=== PATIENT | male | born 1965 | race Caucasian/White ===

== ENCOUNTER 2021-04-14 08:18 | Inpatient (IN) | payer MEDICAID, SELFPAY ==
[2021-04-14] VITALS (17 sets, daily range): BP systolic 113–163; BP diastolic 60–78; PULSE 95–115; RESP 12–32; TEMP 36.9–38.6; O2SAT 91–95; BMI 30.9; BMI 25.0
--- NOTE | ~2021-04-14 | XR_ITS ---
EXAMINATION: XR CHEST CLINICAL INFORMATION: AMS COMPARISON: None TECHNIQUE: AP portable view of the chest was obtained. FINDINGS: No significant abnormality is noted involving the heart, lungs, mediastinum, bony thorax or soft tissues. Linear density seen overlying the lower right chest which may represent artifact or extrinsic density. XR/XR chest 1V IMPRESSION: No acute disease.
--- NOTE | ~2021-04-14 | XR_ITS ---
EXAMINATION: XR FOOT, RIGHT CLINICAL INFORMATION: Bones. Concern for osteomyelitis.. COMPARISON: None TECHNIQUE: AP, lateral, and oblique views of the right foot. FINDINGS: There is a soft tissue ulceration at the base of the fifth distal metatarsal with 2 mm radiopaque foreign body underneath the skin and a slightly larger radiopaque faintly visualized 3 mm foreign body more anteriorly. There is no periosteal elevation. No fracture or dislocation. No soft tissue gas. Mild hallux valgus deformity first MTP joint is noted. XR/XR foot RT min 3V IMPRESSION: Soft tissue ulceration/wound along the base of the fifth distal metatarsal with suspicion for two radiopaque foreign bodies. There is no evidence of osteomyelitis, fracture or dislocation.
--- NOTE | ~2021-04-14 | CT_ITS ---
EXAMINATION: CT HEAD WITHOUT CONTRAST CLINICAL INFORMATION: Altered mental status in a 56-year-old male COMPARISON: None TECHNIQUE: Contiguous axial imaging was performed from the skull base to vertex without intravenous administration of contrast. This CT examination was performed using dose optimization techniques as appropriate, variously including the following: *Automated exposure control *Adjustment of mA and/or kV according to patient size (this includes techniques or standardized protocols for targeted exams where dose is matched to indication/reason for exam; i.e. extremities or head) *Use of iterative reconstruction technique DLP: 818 mGy-cm FINDINGS: There is no evidence of acute intracranial hemorrhage or territorial infarction. No abnormal mass effect or midline shift is seen. Triana to white matter differentiation is well preserved. No extra-axial fluid collections are identified. The ventricles are normal in size. There is no abnormal attenuation within the brain parenchyma. The osseous structures and soft tissues are normal. The mastoid air cells and visualized portions of the paranasal sinuses are well aerated. CT/CT head/brain wo con IMPRESSION: No acute intracranial pathology.
--- NOTE | 2021-04-14 08:28 | ECG_ITS ---
Test Reason : sepsis Blood Pressure : / mmHG Vent. Rate : 100 BPM Atrial Rate : 100 BPM P-R Int : 138 ms QRS Dur : 088 ms QT Int : 374 ms P-R-T Axes : 061 052 030 degrees QTc Int : 482 ms Normal sinus rhythm Nonspecific ST abnormality Prolonged QT Abnormal ECG No previous ECGs available Referred By: Nubia Manuel Electronically Signed By:Dave Alexander
--- NOTE | 2021-04-14 08:28 | ED.GENADULT ---
HPI - General Adult General Chief complaint: General Medical Stated complaint: AMS,?SEPSIS,?UTI Time Seen by Provider: 04/14/21 08:28 Source: patient and EMS Mode of arrival: EMS Limitations: no limitations History of Present Illness HPI narrative: 56 y/o male with history of diabetes with neuropathy presents to the ER from home via EMS with concern of altered mental status and weakness. His mother called 911 when he fell this morning because he was weak. He denies any injury or hitting his head. He is a poor historian. He reports not taking his metformin because he ran out, cannot say the last time he took it. Denies other medical problems. He was noted to have multiple wounds and drainage from his right foot - he reports no pain and the wounds started 2 days ago. Denies fevers at home. Not vaccianted for COVID. EMS found the patient confused. He was incontinent of foul smelling urine. POC >600 for EMS. Spoke with patient's mother in the waiting room - he has not been on his metformin for several months as he has not seen his provider and they did want a refill his meds without evaluation and person. He has no other documented medical history per mom. She reports his right foot wound is chronic since 2017. He has had COVID symptoms all week including loss of taste and smell and intermittent vomiting. He also had some muscle aches and headaches. Patient did not want to go get a COVID test so he stayed home. Mom called 911 when she heard him fall this morning while getting food out of the pantry. No LOC MD complaint: weakness s/p fall, confused Onset (ago): unknown Location: left and lower extremity Radiation: proximal Severity: moderate Relieving factors: none Exacerbating factors: none Associated symptoms: confusion, malaise and syncope Treatments prior to arrival: none Related Data Home Medications Medication Instructions Recorded Confirmed No Known Home Meds 04/14/21 04/14/21 Allergies Allergy/AdvReac Type Severity Reaction Status Date / Time No Known Allergies Allergy Unverified 12/10/19 14:45 [No Known Allergies*] Review of Systems Review of Systems: Constitutional: No Fever, No Chills ENT/Mouth: No sore throat, No Rhinorrhea, No Swallowing Difficulty Eyes: No Eye Pain, No Swelling, No Redness Cardiovascular: No Chest Pain, No SOB, No Orthopnea, No Edema Respiratory: No Cough, No Sputum, No Wheezing, No dyspnea Gastrointestinal: No Nausea, No Vomiting, No Diarrhea, No abdominal Pain Genitourinary: No Dysuria, No Urinary Frequency, No Hematuria Musculoskeletal: No joint pain, No Myalgias Skin: + Skin Lesions, No rash Neuro: + Weakness, + Numbness, No Dizziness, No Headache Psych: No Anxiety/Panic, No Depression Heme/Lymph: No Bruising, No Lymphadenopathy Endocrine: + Polyuria, + Polydipsia PMFSH Social History Social History Alcohol intake: current Alcohol intake frequency: a few times a week Patient Tobacco Use Status: Current everyday Tobacco user Use of substances other than those prescribed or required for medical reasons: No Advance Directives: No Advance Directives Information Provided: No Physical Exam Vital Signs: Vital Signs: Last Vital Signs Temp 100.8 F H 04/14/21 15:53 Pulse 97 04/14/21 15:31 Resp 15 04/14/21 15:31 BP 133/64 04/14/21 15:31 Pulse Ox 91 L 04/14/21 15:31 BMI result Body Mass Index 25.0 Appearance: Alert. Oriented X3. No acute distress. Eyes: Pupils equal, round and reactive to light. ENT: Pharynx normal. No dentition. Neck: Normal inspection. Neck supple. CVS: Normal heart rate and rhythm. Pulses normal. Respiratory: No respiratory distress. Breath sounds normal. Abdomen: Obese, Soft and nontender. +BS x4 Skin: Skin warm and dry. Normal skin color. Normal skin turgor. No rashes. Extremities: Right foot as pictured below - warm and well perfused, nontender. LLE normal to inspection, no LE edema on the left Neuro: Oriented X 3. Intermittently pulling at lines and confused. No motor deficit. + sensory deficit to bilateral feet Course Course Course Narrative: 56-year-old male, very poor historian with a known history of diabetes on metformin who presents to the ER with confusion, what appears to be acute on chronic right foot wounds with active drainage and evidence of infection as well as severe hyperglycemia. Noncompliant with his metformin. On arrival he has a low grade fever, hemodynamically stable. Concern for DKA. Will check metabolic workup, inflammatory markers for concern of osteomyelitis of the right foot, lactic acid and blood cultures. Will get CT head as well for weakness, although exam is nonfocal. Will order empiric broad spectrum abx for his foot infection and sepsis IVF bolus. Reevaluation(s) Reevaluation #1: 9 am - patient more and more confused. pulled out IV. POC >600 x2. 5 units IV insulin ordered to start. chemistries pending. additional lines placed by nursing. 10 - incontinent of urine several times. tried to get out of bed and stepped in his own urine. Nascimento placed. pH 7.36. not in DKA 10:15 - critical result with glucose 1141 consistent with hyperglycemic hyperosmolar state with metabolic encephalopathy. 5 additional units of IV insulin ordered as well as insulin infusion. will require ICU level of care. 10:30 - per nursing sign hanger supervisor. we have no ICU capacity at this time due to nursing contraints. advised to call [facility] for transfer. Spoke with [facility], [facility], [facility], [facility] all of which are not accepting transfers at this time. Patient's information was given to [facility] and [facility]. HH we will touch base q.12 to reassess patient's need for ICU level of care. 11:05 insulin gtt started at 9u/hr. case d/w Dr. Don who will provide recs as needed. XR foot not showing osteomyelitis - he will likely need MRI for further evaluation. 11:40 - patient requiring bilateral soft wrist restraints for his safety. He was pulling out his IVs. PO seroquel ordered for delirium 1pm - [place] & lactic acid improving with IVF, glucose now 877. remains on insulin gtt. for HHS 3:30 - glucose on fingerstick is 600, serum is 724. Insulin drip titrated back upward to reflect the 724 which is more accurate. Patient remains confused and altered, attempting to pull his Nascimento. He remains in soft wrist restraints for his safety. Spoke with nursing sign hanger supervisor, I see bed is being made available. Dr. Don accepted the patient to the ICU for ongoing treatment of HHS. Consultations Consultation #1: ICU - Dr. Don Medical Decision Making Lab Data Result diagrams: 04/14/21 09:31 04/14/21 15:26 Labs: Lab Results 04/14/21 04/14/21 04/14/21 Range/Units 08:29 08:40 09:31 WBC 19.2 H (4.8-10.8) X10*3/uL RBC 4.71 (4.60-5.80) X10*6/uL Hgb 13.9 L (14.0-18.0) g/dl Hct 42.7 (42.0-52.0) % MCV 90.7 (80.0-98.0) fL MCH 29.5 (27.0-33.0) pg MCHC 32.6 (31.0-36.0) g/dl RDW 13.4 (11.0-16.0) % Plt Count 363 (160-400) X10*3/uL MPV 11.9 (9.4-12.4) fL Immature Gran % (Auto) Cancelled Neut % (Auto) Cancelled Lymph % (Auto) Cancelled [place] % (Auto) Cancelled Eos % (Auto) Cancelled Baso % (Auto) Cancelled Lymph # (Auto) Cancelled [place] # (Auto) Cancelled Eos # (Auto) Cancelled Baso # (Auto) Cancelled Abs Immat Gran (auto) Cancelled Absolute Neuts (auto) Cancelled Absolute Nucleated RBC 0.000 (0.0-0.012) X10*3/uL Nucleated RBC % (auto) 0.0 (0.0-0.2) /100WBC Neutrophils % (Manual) 81 H (45-73) % Band Neutrophils % 13 H (3-5) % Monocytes % (Manual) 6 (2-11) % Abs Neuts (Manual) 18.0 H (2.0-8.3) X10*3/uL Monocytes # (Manual) 1.2 (0.1-1.2) X10*3/uL Dohle Bodies PRESENT Platelet Estimate NORMAL (NORMAL) Plt Morphology Comment NORMAL RBC Morphology NOTED ESR (0-15) MM/HR PT (9.9-13.0) SEC INR (0.9-1.1) APTT (24.1-38.0) SEC VBG pH (7.32-7.43) VBG pCO2 mmHg VBG pO2 mmHg VBG HCO3 (22-26) mmol/L VBG O2 Saturation % VBG Base Excess mmol/L Sodium (135-145) mmol/L Potassium (3.3-5.1) mmol/L Chloride (96-108) mmol/L Carbon Dioxide (22-29) mmol/L Anion Gap (12-20) BUN (9-16) mg/dL Creatinine (0.5-1.4) mg/dL Estim Creat Clear Calc Estimated GFR POC Glucose > 600 H* > 600 H* (60-115) mg/dL Random Glucose (60-115) mg/dL Osmolality (281-305) mosm/kg Lactic Acid (0.5-2.0) mmol/L Lactic Acid F/U @ 2Hr (0.5-2.0) mmol/L Lactic Acid F/U @ 4Hr (0.5-2.0) mmol/L Calcium (8.4-10.2) mg/dL Magnesium (1.6-2.6) mg/dL Total Bilirubin (0.0-1.0) mg/dL Direct Bilirubin (0.0-0.5) mg/dL AST (5-37) U/L ALT (0-40) U/L Alkaline Phosphatase (39-117) U/L Total Creatine Kinase (38-174) U/L Troponin I High Sens (<3.5-35.0) ng/L C-Reactive Protein (< or = 0.50) mg/dL B-Natriuretic Peptide (<100) pg/mL Total Protein (6.5-8.0) g/dL Albumin (3.5-5.0) g/dL Lipase (8-78) U/L Urine Color Urine Appearance Urine pH (5.0-8.0) Ur Specific [place] (1.005-1.025) Urine Protein (NEG-TRACE) MG/DL Urine Glucose (UA) (NEG) MG/DL Urine Ketones (NEG) MG/DL Urine Blood (NEG) Urine Nitrite (NEG) Ur Leukocyte Esterase (NEG) Urine RBC (0) /HPF Urine WBC (0-4) /HPF Ur Squamous Epith Cells /LPF Amorphous Sediment /LPF Urine Bacteria /LPF Urine Opiates Screen (Not Detect) Urine Fentanyl Screen (Not Detect) Ur Barbiturates Screen (Not Detect) Ur Phencyclidine Scrn (Not Detect) Ur Amphetamines Screen (Not Detect) U Benzodiazepines Scrn (Not Detect) Urine Cocaine Screen (Not Detect) U Marijuana (THC) Screen (Not Detect) Ethyl Alcohol mg/dL Acetone, Qual (Negative) COVID-19 (BENNIE) (Negative) COVID-19 Clin Com 04/14/21 04/14/21 04/14/21 Range/Units 09:31 09:31 09:31 WBC (4.8-10.8) X10*3/uL RBC (4.60-5.80) X10*6/uL Hgb (14.0-18.0) g/dl Hct (42.0-52.0) % MCV (80.0-98.0) fL MCH (27.0-33.0) pg MCHC (31.0-36.0) g/dl RDW (11.0-16.0) % Plt Count (160-400) X10*3/uL MPV (9.4-12.4) fL Immature Gran % (Auto) Neut % (Auto) Lymph % (Auto) [place] % (Auto) Eos % (Auto) Baso % (Auto) Lymph # (Auto) [place] # (Auto) Eos # (Auto) Baso # (Auto) Abs Immat Gran (auto) Absolute Neuts (auto) Absolute Nucleated RBC (0.0-0.012) X10*3/uL Nucleated RBC % (auto) (0.0-0.2) /100WBC Neutrophils % (Manual) (45-73) % Band Neutrophils % (3-5) % Monocytes % (Manual) (2-11) % Abs Neuts (Manual) (2.0-8.3) X10*3/uL Monocytes # (Manual) (0.1-1.2) X10*3/uL Dohle Bodies Platelet Estimate (NORMAL) Plt Morphology Comment RBC Morphology ESR (0-15) MM/HR PT (9.9-13.0) SEC INR (0.9-1.1) APTT (24.1-38.0) SEC VBG pH (7.32-7.43) VBG pCO2 mmHg VBG pO2 mmHg VBG HCO3 (22-26) mmol/L VBG O2 Saturation % VBG Base Excess mmol/L Sodium 127 L (135-145) mmol/L Potassium 5.1 (3.3-5.1) mmol/L Chloride 84 L (96-108) mmol/L Carbon Dioxide 25 (22-29) mmol/L Anion Gap 23 H (12-20) BUN 58 H (9-16) mg/dL Creatinine 2.14 H (0.5-1.4) mg/dL Estim Creat Clear Calc 46.0 Estimated GFR 32 POC Glucose (60-115) mg/dL Random Glucose 1141 H* (60-115) mg/dL Osmolality (281-305) mosm/kg Lactic Acid 3.3 H* (0.5-2.0) mmol/L Lactic Acid F/U @ 2Hr (0.5-2.0) mmol/L Lactic Acid F/U @ 4Hr (0.5-2.0) mmol/L Calcium 9.8 (8.4-10.2) mg/dL Magnesium 2.3 (1.6-2.6) mg/dL Total Bilirubin 0.3 (0.0-1.0) mg/dL Direct Bilirubin 0.3 (0.0-0.5) mg/dL AST 24 (5-37) U/L ALT 19 (0-40) U/L Alkaline Phosphatase 120 H (39-117) U/L Total Creatine Kinase 223 H (38-174) U/L Troponin I High Sens 3.7 (<3.5-35.0) ng/L C-Reactive Protein 29.47 H (< or = 0.50) mg/dL B-Natriuretic Peptide (<100) pg/mL Total Protein 7.2 (6.5-8.0) g/dL Albumin 2.8 L (3.5-5.0) g/dL Lipase 50 (8-78) U/L Urine Color Urine Appearance Urine pH (5.0-8.0) Ur Specific [place] (1.005-1.025) Urine Protein (NEG-TRACE) MG/DL Urine Glucose (UA) (NEG) MG/DL Urine Ketones (NEG) MG/DL Urine Blood (NEG) Urine Nitrite (NEG) Ur Leukocyte Esterase (NEG) Urine RBC (0) /HPF Urine WBC (0-4) /HPF Ur Squamous Epith Cells /LPF Amorphous Sediment /LPF Urine Bacteria /LPF Urine Opiates Screen (Not Detect) Urine Fentanyl Screen (Not Detect) Ur Barbiturates Screen (Not Detect) Ur Phencyclidine Scrn (Not Detect) Ur Amphetamines Screen (Not Detect) U Benzodiazepines Scrn (Not Detect) Urine Cocaine Screen (Not Detect) U Marijuana (THC) Screen (Not Detect) Ethyl Alcohol mg/dL Acetone, Qual (Negative) COVID-19 (BENNIE) (Negative) COVID-19 Clin Com 04/14/21 04/14/21 04/14/21 Range/Units 09:31 09:31 09:31 WBC (4.8-10.8) X10*3/uL RBC (4.60-5.80) X10*6/uL Hgb (14.0-18.0) g/dl Hct (42.0-52.0) % MCV (80.0-98.0) fL MCH (27.0-33.0) pg MCHC (31.0-36.0) g/dl RDW (11.0-16.0) % Plt Count (160-400) X10*3/uL MPV (9.4-12.4) fL Immature Gran % (Auto) Neut % (Auto) Lymph % (Auto) [place] % (Auto) Eos % (Auto) Baso % (Auto) Lymph # (Auto) [place] # (Auto) Eos # (Auto) Baso # (Auto) Abs Immat Gran (auto) Absolute Neuts (auto) Absolute Nucleated RBC (0.0-0.012) X10*3/uL Nucleated RBC % (auto) (0.0-0.2) /100WBC Neutrophils % (Manual) (45-73) % Band Neutrophils % (3-5) % Monocytes % (Manual) (2-11) % Abs Neuts (Manual) (2.0-8.3) X10*3/uL Monocytes # (Manual) (0.1-1.2) X10*3/uL Dohle Bodies Platelet Estimate (NORMAL) Plt Morphology Comment RBC Morphology ESR (0-15) MM/HR PT 13.4 H (9.9-13.0) SEC INR 1.2 H (0.9-1.1) APTT 25.6 (24.1-38.0) SEC VBG pH (7.32-7.43) VBG pCO2 mmHg VBG pO2 mmHg VBG HCO3 (22-26) mmol/L VBG O2 Saturation % VBG Base Excess mmol/L Sodium (135-145) mmol/L Potassium (3.3-5.1) mmol/L Chloride (96-108) mmol/L Carbon Dioxide (22-29) mmol/L Anion Gap (12-20) BUN (9-16) mg/dL Creatinine (0.5-1.4) mg/dL Estim Creat Clear Calc Estimated GFR POC Glucose (60-115) mg/dL Random Glucose (60-115) mg/dL Osmolality (281-305) mosm/kg Lactic Acid (0.5-2.0) mmol/L Lactic Acid F/U @ 2Hr (0.5-2.0) mmol/L Lactic Acid F/U @ 4Hr (0.5-2.0) mmol/L Calcium (8.4-10.2) mg/dL Magnesium (1.6-2.6) mg/dL Total Bilirubin (0.0-1.0) mg/dL Direct Bilirubin (0.0-0.5) mg/dL AST (5-37) U/L ALT (0-40) U/L Alkaline Phosphatase (39-117) U/L Total Creatine Kinase (38-174) U/L Troponin I High Sens (<3.5-35.0) ng/L C-Reactive Protein (< or = 0.50) mg/dL B-Natriuretic Peptide 206 H (<100) pg/mL Total Protein (6.5-8.0) g/dL Albumin (3.5-5.0) g/dL Lipase (8-78) U/L Urine Color Urine Appearance Urine pH (5.0-8.0) Ur Specific [place] (1.005-1.025) Urine Protein (NEG-TRACE) MG/DL Urine Glucose (UA) (NEG) MG/DL Urine Ketones (NEG) MG/DL Urine Blood (NEG) Urine Nitrite (NEG) Ur Leukocyte Esterase (NEG) Urine RBC (0) /HPF Urine WBC (0-4) /HPF Ur Squamous Epith Cells /LPF Amorphous Sediment /LPF Urine Bacteria /LPF Urine Opiates Screen (Not Detect) Urine Fentanyl Screen (Not Detect) Ur Barbiturates Screen (Not Detect) Ur Phencyclidine Scrn (Not Detect) Ur Amphetamines Screen (Not Detect) U Benzodiazepines Scrn (Not Detect) Urine Cocaine Screen (Not Detect) U Marijuana (THC) Screen (Not Detect) Ethyl Alcohol mg/dL Acetone, Qual (Negative) COVID-19 (BENNIE) Positive A (Negative) COVID-19 Clin Com See Note 04/14/21 04/14/21 04/14/21 Range/Units 09:31 09:31 09:31 WBC (4.8-10.8) X10*3/uL RBC (4.60-5.80) X10*6/uL Hgb (14.0-18.0) g/dl Hct (42.0-52.0) % MCV (80.0-98.0) fL MCH (27.0-33.0) pg MCHC (31.0-36.0) g/dl RDW (11.0-16.0) % Plt Count (160-400) X10*3/uL MPV (9.4-12.4) fL Immature Gran % (Auto) Neut % (Auto) Lymph % (Auto) [place] % (Auto) Eos % (Auto) Baso % (Auto) Lymph # (Auto) [place] # (Auto) Eos # (Auto) Baso # (Auto) Abs Immat Gran (auto) Absolute Neuts (auto) Absolute Nucleated RBC (0.0-0.012) X10*3/uL Nucleated RBC % (auto) (0.0-0.2) /100WBC Neutrophils % (Manual) (45-73) % Band Neutrophils % (3-5) % Monocytes % (Manual) (2-11) % Abs Neuts (Manual) (2.0-8.3) X10*3/uL Monocytes # (Manual) (0.1-1.2) X10*3/uL Dohle Bodies Platelet Estimate (NORMAL) Plt Morphology Comment RBC Morphology ESR 81 H (0-15) MM/HR PT (9.9-13.0) SEC INR (0.9-1.1) APTT (24.1-38.0) SEC VBG pH (7.32-7.43) VBG pCO2 mmHg VBG pO2 mmHg VBG HCO3 (22-26) mmol/L VBG O2 Saturation % VBG Base Excess mmol/L Sodium (135-145) mmol/L Potassium (3.3-5.1) mmol/L Chloride (96-108) mmol/L Carbon Dioxide (22-29) mmol/L Anion Gap (12-20) BUN (9-16) mg/dL Creatinine (0.5-1.4) mg/dL Estim Creat Clear Calc Estimated GFR POC Glucose (60-115) mg/dL Random Glucose (60-115) mg/dL Osmolality (281-305) mosm/kg Lactic Acid (0.5-2.0) mmol/L Lactic Acid F/U @ 2Hr (0.5-2.0) mmol/L Lactic Acid F/U @ 4Hr (0.5-2.0) mmol/L Calcium (8.4-10.2) mg/dL Magnesium (1.6-2.6) mg/dL Total Bilirubin (0.0-1.0) mg/dL Direct Bilirubin (0.0-0.5) mg/dL AST (5-37) U/L ALT (0-40) U/L Alkaline Phosphatase (39-117) U/L Total Creatine Kinase (38-174) U/L Troponin I High Sens (<3.5-35.0) ng/L C-Reactive Protein (< or = 0.50) mg/dL B-Natriuretic Peptide (<100) pg/mL Total Protein (6.5-8.0) g/dL Albumin (3.5-5.0) g/dL Lipase (8-78) U/L Urine Color Urine Appearance Urine pH (5.0-8.0) Ur Specific [place] (1.005-1.025) Urine Protein (NEG-TRACE) MG/DL Urine Glucose (UA) (NEG) MG/DL Urine Ketones (NEG) MG/DL Urine Blood (NEG) Urine Nitrite (NEG) Ur Leukocyte Esterase (NEG) Urine RBC (0) /HPF Urine WBC (0-4) /HPF Ur Squamous Epith Cells /LPF Amorphous Sediment /LPF Urine Bacteria /LPF Urine Opiates Screen (Not Detect) Urine Fentanyl Screen (Not Detect) Ur Barbiturates Screen (Not Detect) Ur Phencyclidine Scrn (Not Detect) Ur Amphetamines Screen (Not Detect) U Benzodiazepines Scrn (Not Detect) Urine Cocaine Screen (Not Detect) U Marijuana (THC) Screen (Not Detect) Ethyl Alcohol < 10 mg/dL Acetone, Qual Small H (Negative) COVID-19 (BENNIE) (Negative) COVID-19 Clin Com 04/14/21 04/14/21 04/14/21 Range/Units 09:31 09:35 10:25 WBC (4.8-10.8) X10*3/uL RBC (4.60-5.80) X10*6/uL Hgb (14.0-18.0) g/dl Hct (42.0-52.0) % MCV (80.0-98.0) fL MCH (27.0-33.0) pg MCHC (31.0-36.0) g/dl RDW (11.0-16.0) % Plt Count (160-400) X10*3/uL MPV (9.4-12.4) fL Immature Gran % (Auto) Neut % (Auto) Lymph % (Auto) [place] % (Auto) Eos % (Auto) Baso % (Auto) Lymph # (Auto) [place] # (Auto) Eos # (Auto) Baso # (Auto) Abs Immat Gran (auto) Absolute Neuts (auto) Absolute Nucleated RBC (0.0-0.012) X10*3/uL Nucleated RBC % (auto) (0.0-0.2) /100WBC Neutrophils % (Manual) (45-73) % Band Neutrophils % (3-5) % Monocytes % (Manual) (2-11) % Abs Neuts (Manual) (2.0-8.3) X10*3/uL Monocytes # (Manual) (0.1-1.2) X10*3/uL Dohle Bodies Platelet Estimate (NORMAL) Plt Morphology Comment RBC Morphology ESR (0-15) MM/HR PT (9.9-13.0) SEC INR (0.9-1.1) APTT (24.1-38.0) SEC VBG pH 7.36 (7.32-7.43) VBG pCO2 41 mmHg VBG pO2 52 mmHg VBG HCO3 23 (22-26) mmol/L VBG O2 Saturation 74.0 % VBG Base Excess -1.4 mmol/L Sodium (135-145) mmol/L Potassium (3.3-5.1) mmol/L Chloride (96-108) mmol/L Carbon Dioxide (22-29) mmol/L Anion Gap (12-20) BUN (9-16) mg/dL Creatinine (0.5-1.4) mg/dL Estim Creat Clear Calc Estimated GFR POC Glucose (60-115) mg/dL Random Glucose (60-115) mg/dL Osmolality 355 H (281-305) mosm/kg Lactic Acid (0.5-2.0) mmol/L Lactic Acid F/U @ 2Hr (0.5-2.0) mmol/L Lactic Acid F/U @ 4Hr (0.5-2.0) mmol/L Calcium (8.4-10.2) mg/dL Magnesium (1.6-2.6) mg/dL Total Bilirubin (0.0-1.0) mg/dL Direct Bilirubin (0.0-0.5) mg/dL AST (5-37) U/L ALT (0-40) U/L Alkaline Phosphatase (39-117) U/L Total Creatine Kinase (38-174) U/L Troponin I High Sens (<3.5-35.0) ng/L C-Reactive Protein (< or = 0.50) mg/dL B-Natriuretic Peptide (<100) pg/mL Total Protein (6.5-8.0) g/dL Albumin (3.5-5.0) g/dL Lipase (8-78) U/L Urine Color Urine Appearance Urine pH (5.0-8.0) Ur Specific [place] (1.005-1.025) Urine Protein (NEG-TRACE) MG/DL Urine Glucose (UA) (NEG) MG/DL Urine Ketones (NEG) MG/DL Urine Blood (NEG) Urine Nitrite (NEG) Ur Leukocyte Esterase (NEG) Urine RBC (0) /HPF Urine WBC (0-4) /HPF Ur Squamous Epith Cells /LPF Amorphous Sediment /LPF Urine Bacteria /LPF Urine Opiates Screen Not Detected (Not Detect) Urine Fentanyl Screen Not Detected (Not Detect) Ur Barbiturates Screen Not Detected (Not Detect) Ur Phencyclidine Scrn Not Detected (Not Detect) Ur Amphetamines Screen Not Detected (Not Detect) U Benzodiazepines Scrn Not Detected (Not Detect) Urine Cocaine Screen Not Detected (Not Detect) U Marijuana (THC) Screen Not Detected (Not Detect) Ethyl Alcohol mg/dL Acetone, Qual (Negative) COVID-19 (BENNIE) (Negative) COVID-19 Clin Com 01/04/14/21 04/14/21 Range/Units 10:25 10:45 12:05 WBC (4.8-10.8) X10*3/uL RBC (4.60-5.80) X10*6/uL Hgb (14.0-18.0) g/dl Hct (42.0-52.0) % MCV (80.0-98.0) fL MCH (27.0-33.0) pg MCHC (31.0-36.0) g/dl RDW (11.0-16.0) % Plt Count (160-400) X10*3/uL MPV (9.4-12.4) fL Immature Gran % (Auto) Neut % (Auto) Lymph % (Auto) [place] % (Auto) Eos % (Auto) Baso % (Auto) Lymph # (Auto) [place] # (Auto) Eos # (Auto) Baso # (Auto) Abs Immat Gran (auto) Absolute Neuts (auto) Absolute Nucleated RBC (0.0-0.012) X10*3/uL Nucleated RBC % (auto) (0.0-0.2) /100WBC Neutrophils % (Manual) (45-73) % Band Neutrophils % (3-5) % Monocytes % (Manual) (2-11) % Abs Neuts (Manual) (2.0-8.3) X10*3/uL Monocytes # (Manual) (0.1-1.2) X10*3/uL Dohle Bodies Platelet Estimate (NORMAL) Plt Morphology Comment RBC Morphology ESR (0-15) MM/HR PT (9.9-13.0) SEC INR (0.9-1.1) APTT (24.1-38.0) SEC VBG pH (7.32-7.43) VBG pCO2 mmHg VBG pO2 mmHg VBG HCO3 (22-26) mmol/L VBG O2 Saturation % VBG Base Excess mmol/L Sodium (135-145) mmol/L Potassium (3.3-5.1) mmol/L Chloride (96-108) mmol/L Carbon Dioxide (22-29) mmol/L Anion Gap (12-20) BUN (9-16) mg/dL Creatinine (0.5-1.4) mg/dL Estim Creat Clear Calc Estimated GFR POC Glucose > 600 H* > 600 H* (60-115) mg/dL Random Glucose (60-115) mg/dL Osmolality (281-305) mosm/kg Lactic Acid (0.5-2.0) mmol/L Lactic Acid F/U @ 2Hr (0.5-2.0) mmol/L Lactic Acid F/U @ 4Hr (0.5-2.0) mmol/L Calcium (8.4-10.2) mg/dL Magnesium (1.6-2.6) mg/dL Total Bilirubin (0.0-1.0) mg/dL Direct Bilirubin (0.0-0.5) mg/dL AST (5-37) U/L ALT (0-40) U/L Alkaline Phosphatase (39-117) U/L Total Creatine Kinase (38-174) U/L Troponin I High Sens (<3.5-35.0) ng/L C-Reactive Protein (< or = 0.50) mg/dL B-Natriuretic Peptide (<100) pg/mL Total Protein (6.5-8.0) g/dL Albumin (3.5-5.0) g/dL Lipase (8-78) U/L Urine Color STRAW Urine Appearance HAZY Urine pH 5.5 (5.0-8.0) Ur Specific [place] <= 1.005 (1.005-1.025) Urine Protein TRACE (NEG-TRACE) MG/DL Urine Glucose (UA) >=1000 H (NEG) MG/DL Urine Ketones 15 (NEG) MG/DL Urine Blood 1+ H (NEG) Urine Nitrite NEG (NEG) Ur Leukocyte Esterase NEG (NEG) Urine RBC 1-4 (0) /HPF Urine WBC 0-2 (0-4) /HPF Ur Squamous Epith Cells TRACE /LPF Amorphous Sediment 1+ /LPF Urine Bacteria TRACE /LPF Urine Opiates Screen (Not Detect) Urine Fentanyl Screen (Not Detect) Ur Barbiturates Screen (Not Detect) Ur Phencyclidine Scrn (Not Detect) Ur Amphetamines Screen (Not Detect) U Benzodiazepines Scrn (Not Detect) Urine Cocaine Screen (Not Detect) U Marijuana (THC) Screen (Not Detect) Ethyl Alcohol mg/dL Acetone, Qual (Negative) COVID-19 (BENNIE) (Negative) COVID-19 Clin Com 04/14/21 04/14/21 04/14/21 Range/Units 12:16 12:16 13:07 WBC (4.8-10.8) X10*3/uL RBC (4.60-5.80) X10*6/uL Hgb (14.0-18.0) g/dl Hct (42.0-52.0) % MCV (80.0-98.0) fL MCH (27.0-33.0) pg MCHC (31.0-36.0) g/dl RDW (11.0-16.0) % Plt Count (160-400) X10*3/uL MPV (9.4-12.4) fL Immature Gran % (Auto) Neut % (Auto) Lymph % (Auto) [place] % (Auto) Eos % (Auto) Baso % (Auto) Lymph # (Auto) [place] # (Auto) Eos # (Auto) Baso # (Auto) Abs Immat Gran (auto) Absolute Neuts (auto) Absolute Nucleated RBC (0.0-0.012) X10*3/uL Nucleated RBC % (auto) (0.0-0.2) /100WBC Neutrophils % (Manual) (45-73) % Band Neutrophils % (3-5) % Monocytes % (Manual) (2-11) % Abs Neuts (Manual) (2.0-8.3) X10*3/uL Monocytes # (Manual) (0.1-1.2) X10*3/uL Dohle Bodies Platelet Estimate (NORMAL) Plt Morphology Comment RBC Morphology ESR (0-15) MM/HR PT (9.9-13.0) SEC INR (0.9-1.1) APTT (24.1-38.0) SEC VBG pH (7.32-7.43) VBG pCO2 mmHg VBG pO2 mmHg VBG HCO3 (22-26) mmol/L VBG O2 Saturation % VBG Base Excess mmol/L Sodium 133 L (135-145) mmol/L Potassium 4.5 (3.3-5.1) mmol/L Chloride 95 L (96-108) mmol/L Carbon Dioxide 24 (22-29) mmol/L Anion Gap 19 (12-20) BUN 58 H (9-16) mg/dL Creatinine 1.80 H (0.5-1.4) mg/dL Estim Creat Clear Calc 54.7 Estimated GFR 39 POC Glucose > 600 H* (60-115) mg/dL Random Glucose 877 H* (60-115) mg/dL Osmolality (281-305) mosm/kg Lactic Acid (0.5-2.0) mmol/L Lactic Acid F/U @ 2Hr 2.2 H* (0.5-2.0) mmol/L Lactic Acid F/U @ 4Hr (0.5-2.0) mmol/L Calcium 9.2 D (8.4-10.2) mg/dL Magnesium (1.6-2.6) mg/dL Total Bilirubin (0.0-1.0) mg/dL Direct Bilirubin (0.0-0.5) mg/dL AST (5-37) U/L ALT (0-40) U/L Alkaline Phosphatase (39-117) U/L Total Creatine Kinase (38-174) U/L Troponin I High Sens (<3.5-35.0) ng/L C-Reactive Protein (< or = 0.50) mg/dL B-Natriuretic Peptide (<100) pg/mL Total Protein (6.5-8.0) g/dL Albumin (3.5-5.0) g/dL Lipase (8-78) U/L Urine Color Urine Appearance Urine pH (5.0-8.0) Ur Specific [place] (1.005-1.025) Urine Protein (NEG-TRACE) MG/DL Urine Glucose (UA) (NEG) MG/DL Urine Ketones (NEG) MG/DL Urine Blood (NEG) Urine Nitrite (NEG) Ur Leukocyte Esterase (NEG) Urine RBC (0) /HPF Urine WBC (0-4) /HPF Ur Squamous Epith Cells /LPF Amorphous Sediment /LPF Urine Bacteria /LPF Urine Opiates Screen (Not Detect) Urine Fentanyl Screen (Not Detect) Ur Barbiturates Screen (Not Detect) Ur Phencyclidine Scrn (Not Detect) Ur Amphetamines Screen (Not Detect) U Benzodiazepines Scrn (Not Detect) Urine Cocaine Screen (Not Detect) U Marijuana (THC) Screen (Not Detect) Ethyl Alcohol mg/dL Acetone, Qual (Negative) COVID-19 (BENNIE) (Negative) COVID-19 Clin Com 04/14/21 04/14/21 04/14/21 Range/Units 13:39 14:13 14:39 WBC (4.8-10.8) X10*3/uL RBC (4.60-5.80) X10*6/uL Hgb (14.0-18.0) g/dl Hct (42.0-52.0) % MCV (80.0-98.0) fL MCH (27.0-33.0) pg MCHC (31.0-36.0) g/dl RDW (11.0-16.0) % Plt Count (160-400) X10*3/uL MPV (9.4-12.4) fL Immature Gran % (Auto) Neut % (Auto) Lymph % (Auto) [place] % (Auto) Eos % (Auto) Baso % (Auto) Lymph # (Auto) [place] # (Auto) Eos # (Auto) Baso # (Auto) Abs Immat Gran (auto) Absolute Neuts (auto) Absolute Nucleated RBC (0.0-0.012) X10*3/uL Nucleated RBC % (auto) (0.0-0.2) /100WBC Neutrophils % (Manual) (45-73) % Band Neutrophils % (3-5) % Monocytes % (Manual) (2-11) % Abs Neuts (Manual) (2.0-8.3) X10*3/uL Monocytes # (Manual) (0.1-1.2) X10*3/uL Dohle Bodies Platelet Estimate (NORMAL) Plt Morphology Comment RBC Morphology ESR (0-15) MM/HR PT (9.9-13.0) SEC INR (0.9-1.1) APTT (24.1-38.0) SEC VBG pH (7.32-7.43) VBG pCO2 mmHg VBG pO2 mmHg VBG HCO3 (22-26) mmol/L VBG O2 Saturation % VBG Base Excess mmol/L Sodium 134 L (135-145) mmol/L Potassium 4.6 (3.3-5.1) mmol/L Chloride 98 (96-108) mmol/L Carbon Dioxide 24 (22-29) mmol/L Anion Gap 17 (12-20) BUN 57 H (9-16) mg/dL Creatinine 1.70 H (0.5-1.4) mg/dL Estim Creat Clear Calc 57.9 Estimated GFR 42 POC Glucose > 600 H* (60-115) mg/dL Random Glucose 777 H* (60-115) mg/dL Osmolality (281-305) mosm/kg Lactic Acid (0.5-2.0) mmol/L Lactic Acid F/U @ 2Hr (0.5-2.0) mmol/L Lactic Acid F/U @ 4Hr 1.7 (0.5-2.0) mmol/L Calcium 9.2 (8.4-10.2) mg/dL Magnesium (1.6-2.6) mg/dL Total Bilirubin (0.0-1.0) mg/dL Direct Bilirubin (0.0-0.5) mg/dL AST (5-37) U/L ALT (0-40) U/L Alkaline Phosphatase (39-117) U/L Total Creatine Kinase (38-174) U/L Troponin I High Sens (<3.5-35.0) ng/L C-Reactive Protein (< or = 0.50) mg/dL B-Natriuretic Peptide (<100) pg/mL Total Protein (6.5-8.0) g/dL Albumin (3.5-5.0) g/dL Lipase (8-78) U/L Urine Color Urine Appearance Urine pH (5.0-8.0) Ur Specific [place] (1.005-1.025) Urine Protein (NEG-TRACE) MG/DL Urine Glucose (UA) (NEG) MG/DL Urine Ketones (NEG) MG/DL Urine Blood (NEG) Urine Nitrite (NEG) Ur Leukocyte Esterase (NEG) Urine RBC (0) /HPF Urine WBC (0-4) /HPF Ur Squamous Epith Cells /LPF Amorphous Sediment /LPF Urine Bacteria /LPF Urine Opiates Screen (Not Detect) Urine Fentanyl Screen (Not Detect) Ur Barbiturates Screen (Not Detect) Ur Phencyclidine Scrn (Not Detect) Ur Amphetamines Screen (Not Detect) U Benzodiazepines Scrn (Not Detect) Urine Cocaine Screen (Not Detect) U Marijuana (THC) Screen (Not Detect) Ethyl Alcohol mg/dL Acetone, Qual (Negative) COVID-19 (BENNIE) (Negative) COVID-19 Clin Com 04/14/21 04/14/21 Range/Units 15:26 15:26 WBC (4.8-10.8) X10*3/uL RBC (4.60-5.80) X10*6/uL Hgb (14.0-18.0) g/dl Hct (42.0-52.0) % MCV (80.0-98.0) fL MCH (27.0-33.0) pg MCHC (31.0-36.0) g/dl RDW (11.0-16.0) % Plt Count (160-400) X10*3/uL MPV (9.4-12.4) fL Immature Gran % (Auto) Neut % (Auto) Lymph % (Auto) [place] % (Auto) Eos % (Auto) Baso % (Auto) Lymph # (Auto) [place] # (Auto) Eos # (Auto) Baso # (Auto) Abs Immat Gran (auto) Absolute Neuts (auto) Absolute Nucleated RBC (0.0-0.012) X10*3/uL Nucleated RBC % (auto) (0.0-0.2) /100WBC Neutrophils % (Manual) (45-73) % Band Neutrophils % (3-5) % Monocytes % (Manual) (2-11) % Abs Neuts (Manual) (2.0-8.3) X10*3/uL Monocytes # (Manual) (0.1-1.2) X10*3/uL Dohle Bodies Platelet Estimate (NORMAL) Plt Morphology Comment RBC Morphology ESR (0-15) MM/HR PT (9.9-13.0) SEC INR (0.9-1.1) APTT (24.1-38.0) SEC VBG pH (7.32-7.43) VBG pCO2 mmHg VBG pO2 mmHg VBG HCO3 (22-26) mmol/L VBG O2 Saturation % VBG Base Excess mmol/L Sodium 136 (135-145) mmol/L Potassium 4.6 (3.3-5.1) mmol/L Chloride 99 (96-108) mmol/L Carbon Dioxide 27 (22-29) mmol/L Anion Gap 15 (12-20) BUN 55 H (9-16) mg/dL Creatinine 1.56 H (0.5-1.4) mg/dL Estim Creat Clear Calc 63.1 Estimated GFR 46 POC Glucose 600 H* (60-115) mg/dL Random Glucose 724 H* (60-115) mg/dL Osmolality (281-305) mosm/kg Lactic Acid (0.5-2.0) mmol/L Lactic Acid F/U @ 2Hr (0.5-2.0) mmol/L Lactic Acid F/U @ 4Hr (0.5-2.0) mmol/L Calcium 9.4 (8.4-10.2) mg/dL Magnesium (1.6-2.6) mg/dL Total Bilirubin (0.0-1.0) mg/dL Direct Bilirubin (0.0-0.5) mg/dL AST (5-37) U/L ALT (0-40) U/L Alkaline Phosphatase (39-117) U/L Total Creatine Kinase (38-174) U/L Troponin I High Sens (<3.5-35.0) ng/L C-Reactive Protein (< or = 0.50) mg/dL B-Natriuretic Peptide (<100) pg/mL Total Protein (6.5-8.0) g/dL Albumin (3.5-5.0) g/dL Lipase (8-78) U/L Urine Color Urine Appearance Urine pH (5.0-8.0) Ur Specific [place] (1.005-1.025) Urine Protein (NEG-TRACE) MG/DL Urine Glucose (UA) (NEG) MG/DL Urine Ketones (NEG) MG/DL Urine Blood (NEG) Urine Nitrite (NEG) Ur Leukocyte Esterase (NEG) Urine RBC (0) /HPF Urine WBC (0-4) /HPF Ur Squamous Epith Cells /LPF Amorphous Sediment /LPF Urine Bacteria /LPF Urine Opiates Screen (Not Detect) Urine Fentanyl Screen (Not Detect) Ur Barbiturates Screen (Not Detect) Ur Phencyclidine Scrn (Not Detect) Ur Amphetamines Screen (Not Detect) U Benzodiazepines Scrn (Not Detect) Urine Cocaine Screen (Not Detect) U Marijuana (THC) Screen (Not Detect) Ethyl Alcohol mg/dL Acetone, Qual (Negative) COVID-19 (BENNIE) (Negative) COVID-19 Clin Com ECG Data Attestation: I personally reviewed and interpreted this ECG as follows: Interpretation: Sinus tachycardia, heart rate 100 beats per minute, normal CT interval 130 AMS, nonspecific ST wave abnormality, prolonged QTC 482 MS, no ST segment elevations or depressions. Critical Care Time Critical Care Time Critical Care Time: Yes Total Critical Care Time: 90 Attestation: I have personally provided critical care time exclusive of time spent on separately billable procedures. Time includes review of lab data, radiology results, discussion with consultants, and monitoring for potential decompensation. Intervention performed as documented. Discharge Plan Discharge Clinical Impression: Hyperosmolar hyperglycemic state (HHS), COVID-19, Diabetic foot infection, Acute metabolic encephalopathy Sepsis Qualifiers: Sepsis type: sepsis due to unspecified organism Sepsis acute organ dysfunction status: with acute organ dysfunction Severe sepsis acute organ dysfunction type: acute renal failure Acute renal failure type: unspecified Severe sepsis shock status: with septic shock Qualified Code(s): A41.9 - Sepsis, unspecified organism Patient Disposition: Admitted As Inpatient Prescriptions: No Action No Known Home Meds RF: 0
[2021-04-14 08:44] LABS: Glucose, Whole Blood > 600 mg/dL (60-115)
[2021-04-14 08:44] LABS: Glucose, Whole Blood > 600 mg/dL (60-115)
[2021-04-14 09:40] LABS: Venous Blood Gas Refer to POC result
[2021-04-14 09:41] LABS: VBG Base Excess -1.4 mmol/L; VBG HCO3 23 mmol/L (22-26); VBG pCO2 41 mmHg; VBG pH 7.36 (7.32-7.43); VBG pO2 52 mmHg
[2021-04-14 09:41] LABS: Hematocrit 42.7 % (42.0-52.0); Hemoglobin 13.9 g/dl (14.0-18.0); Mean Corpuscular HGB Conc 32.6 g/dl (31.0-36.0); Mean Corpuscular Hemoglobin 29.5 pg (27.0-33.0); Mean Corpuscular Volume 90.7 fL (80.0-98.0); Mean Platelet Volume 11.9 fL (9.4-12.4); Platelet Count 363 X10*3/uL (160-400); Red Blood Count 4.71 X10*6/uL (4.60-5.80); Red Cell Distribution Width 13.4 % (11.0-16.0); White Blood Count 19.2 X10*3/uL (4.8-10.8)
[2021-04-14 09:46] LABS: INTERNATIONAL NORM RATIO 1.2 (0.9-1.1); Prothrombin Time 13.4 SEC (9.9-13.0)
[2021-04-14] MEDS: Insulin Regular, Human 100 UNIT/ML 3 ML VIAL IVPUSH ×2 (09:47→11:03)
[2021-04-14 09:48] LABS: Partial Thromboplastin Time 25.6 SEC (24.1-38.0)
[2021-04-14 09:52] LABS: Acetone, serum QL Small (Negative)
[2021-04-14 09:53] LABS: Ethanol < 10 mg/dL
--- NOTE | 2021-04-14 09:55 | PC.NURSE ---
pt urinated on the floor after being given a urinal, stating I have to get out, I have yto get out! pt redirected to the bed. 18G inserted in the LAC - pt pulled out his 20 in the right hand. pt then proceeded to pull out the 18 in his AC. two new IVs placed, a 20 in the R forearm and a 20 in the L forearm
[2021-04-14] MEDS: vancomycin HCL 1,000 MG in 0.9 % Sodium Chloride 250 ML 270 MG IV (10:00)
[2021-04-14] MEDS: Piperacillin Sodium/Tazobactam 3.375 GM in 0.9 % Sodium Chloride 50 ML IV ×3 (10:00→23:09)
[2021-04-14 10:02] LABS: B Type Natriuretic Peptide 206 pg/mL (<100); Troponin-I High Sensitivity 3.7 ng/L (<3.5-35.0)
[2021-04-14 10:06] LABS: C Reactive Protein 29.47 mg/dL (< or = 0.50); COVID-19 Test Positive (Negative)
[2021-04-14 10:14] LABS: Alanine Aminotransferase 19 U/L (0-40); Albumin Level 2.8 g/dL (3.5-5.0); Alkaline Phosphatase 120 U/L (39-117); Anion Gap 23 (12-20); Aspartate Amino Transferase 24 U/L (5-37); Band Neutrophils Percent 13 % (3-5); Bilirubin Direct 0.3 mg/dL (0.0-0.5); Bilirubin Total 0.3 mg/dL (0.0-1.0); Blood Urea Nitrogen 58 mg/dL (9-16); Calcium 9.8 mg/dL (8.4-10.2); Carbon Dioxide 25 mmol/L (22-29); Chloride 84 mmol/L (96-108); Estimated Glomerular Filt Rate 32; Glucose Random 1141 mg/dL (60-115); Lactic Acid 3.3 mmol/L (0.5-2.0); Lipase 50 U/L (8-78); Magnesium 2.3 mg/dL (1.6-2.6); Monocytes Absolute Manual 1.2 X10*3/uL (0.1-1.2); Monocytes Percent Manual 6 % (2-11); Neutrophils Percent Manual 81 % (45-73); Potassium 5.1 mmol/L (3.3-5.1); Sodium 127 mmol/L (135-145); Total Protein 7.2 g/dL (6.5-8.0)
--- NOTE | 2021-04-14 10:15 | PC.NURSE ---
pt continually incontinant,. able to answer questions but vague. unable to inform this RN when he has to urinate. alfonso place dominguze cath at this time for AMS
[2021-04-14 10:17] LABS: Dohle Bodies PRESENT; Platelet Estimate NORMAL (NORMAL); Platelet Morphology Comment NORMAL; RBC Morphology NOTED
[2021-04-14 10:35] LABS: Appearance Urine HAZY; Color Urine STRAW; Glucose Urine UA >=1000 MG/DL (NEG); Leukocyte Esterase Urine NEG (NEG); Nitrite Urine NEG (NEG); PH 5.5 (5.0-8.0); Specific Gravity - Urine <= 1.005 (1.005-1.025); UACC Culture Trigger NO; Urine Blood 1+ (NEG); Urine Ketones 15 MG/DL (NEG); Urine Protein TRACE MG/DL (NEG-TRACE)
[2021-04-14 10:38] LABS: Erythrocyte Sedimentation Rate 81 MM/HR (0-15)
[2021-04-14 10:49] LABS: Bacteria Urine TRACE /LPF; Squamous Epithelial Cell Urine TRACE /LPF; WBC Urine 0-2 /HPF (0-4)
[2021-04-14 10:50] LABS: Glucose, Whole Blood > 600 mg/dL (60-115)
[2021-04-14 10:50] LABS: Amorphous Sediment Urine 1+ /LPF
[2021-04-14 10:51] LABS: Osmolality, Serum 355 mosm/kg (281-305)
[2021-04-14 10:55] LABS: Amphetamine Screen Urine Not Detected (Not Detect); Barbiturates, Urine Not Detected (Not Detect); Benzodiazepines Screen Urine Not Detected (Not Detect); Cannabinoid Screen Urine Not Detected (Not Detect); Cocaine Screen Urine Not Detected (Not Detect); Fentanyl, urine Not Detected (Not Detect); Opiate Screen Urine Not Detected (Not Detect); Phencyclidine Screen Urine Not Detected (Not Detect)
[2021-04-14] MEDS: Insulin Regular/NS 100 UNIT/100 ML PLAST..BAG 9 UNIT IVCONT (11:04)
[2021-04-14] MEDS: Lactated Ringers 1,000 ML 150 ML IVCONT ×2 (11:15→18:05)
[2021-04-14 11:36] LABS: Reflex Lactate? Lactic Acid Added
--- NOTE | 2021-04-14 11:51 | PC.NURSE ---
requested camera to place on pt. in themeantime pt pulled his IV out in the L forarm. soft restraints placed on pt per Nubia LISA. new 20 placed in the L forearm. VSS HR 104, RR 14, BP 129/63 (85)
[2021-04-14 12:16] LABS: Glucose, Whole Blood > 600 mg/dL (60-115)
--- NOTE | 2021-04-14 12:18 | PC.NURSE ---
POC at 1205 continues to read HI - will inform MARIA L smith
--- NOTE | 2021-04-14 12:28 | PC.NURSE ---
camera placed on pt t redirect from pulling on medical lines
[2021-04-14 12:38] LABS: ~Lactic Acid-LAB USE ONLY 2.2 mmol/L (0.5-2.0)
[2021-04-14] MEDS: QUEtiapine Fumarate 25 MG TABLET PO (12:48)
[2021-04-14 13:00] LABS: Anion Gap 19 (12-20); Blood Urea Nitrogen 58 mg/dL (9-16); Calcium 9.2 mg/dL (8.4-10.2); Carbon Dioxide 24 mmol/L (22-29); Chloride 95 mmol/L (96-108); Creatinine Clr Calc Pharmacy 54.7; Estimated Glomerular Filt Rate 39; Potassium 4.5 mmol/L (3.3-5.1); Sodium 133 mmol/L (135-145)
[2021-04-14 13:08] LABS: Glucose Random 877 mg/dL (60-115)
[2021-04-14 13:11] LABS: Glucose, Whole Blood > 600 mg/dL (60-115)
--- NOTE | 2021-04-14 13:24 | PHA.MEDREC ---
Pharmacy Consult ? Medication Reconciliation Pharmacy has completed the medication reconciliation. Unable to reach pt's mother, called pt's PCP Dr. Bhagat, no meds except for metformin which has not been filled in a while
[2021-04-14 14:12] LABS: Anion Gap 17 (12-20); Blood Urea Nitrogen 57 mg/dL (9-16); Calcium 9.2 mg/dL (8.4-10.2); Carbon Dioxide 24 mmol/L (22-29); Chloride 98 mmol/L (96-108); Creatinine Clr Calc Pharmacy 57.9; Estimated Glomerular Filt Rate 42; Glucose Random 777 mg/dL (60-115); Potassium 4.6 mmol/L (3.3-5.1); Sodium 134 mmol/L (135-145)
[2021-04-14 14:17] LABS: Glucose, Whole Blood > 600 mg/dL (60-115)
[2021-04-14 14:19] LABS: Reflex Lactate? 2 Y
[2021-04-14 14:57] LABS: ~Lactic Acid-LAB USE ONLY 1.7 mmol/L (0.5-2.0)
[2021-04-14 15:49] LABS: Glucose, Whole Blood 600 mg/dL (60-115)
[2021-04-14 15:55] LABS: Anion Gap 15 (12-20); Blood Urea Nitrogen 55 mg/dL (9-16); Calcium 9.4 mg/dL (8.4-10.2); Carbon Dioxide 27 mmol/L (22-29); Chloride 99 mmol/L (96-108); Creatinine Clr Calc Pharmacy 63.1; Estimated Glomerular Filt Rate 46; Glucose Random 724 mg/dL (60-115); Potassium 4.6 mmol/L (3.3-5.1); Sodium 136 mmol/L (135-145)
--- NOTE | 2021-04-14 16:00 | PC.NURSE ---
Whole blood and POC bgl resulted at same time. Due to the descrepancy in values, will continue to follow Whole blood values. Will continue to monitor for significant BGL drop. Provider aware.
[2021-04-14 16:44] LABS: Glucose, Whole Blood 587 mg/dL (60-115)
[2021-04-14 16:44] LABS: Glucose, Whole Blood > 600 mg/dL (60-115)
[2021-04-14 17:24] LABS: Alanine Aminotransferase 17 U/L (0-40); Albumin Level 2.5 g/dL (3.5-5.0); Alkaline Phosphatase 103 U/L (39-117); Anion Gap 14 (12-20); Aspartate Amino Transferase 25 U/L (5-37); Bilirubin Total < 0.2 mg/dL (0.0-1.0); Blood Urea Nitrogen 55 mg/dL (9-16); Calcium 9.4 mg/dL (8.4-10.2); Carbon Dioxide 28 mmol/L (22-29); Chloride 100 mmol/L (96-108); Creatinine Clr Calc Pharmacy 62.7; Estimated Glomerular Filt Rate 46; Glucose Random 675 mg/dL (60-115); Potassium 4.4 mmol/L (3.3-5.1); Sodium 138 mmol/L (135-145); Total Protein 6.5 g/dL (6.5-8.0)
[2021-04-14 17:52] LABS: Glucose, Whole Blood 522 mg/dL (60-115)
[2021-04-14] MEDS: Heparin Sodium,Porcine 5,000 UNIT/ML VIAL 5000 UNIT SUBCUT (18:05)
[2021-04-14 18:10] LABS: Glucose, Whole Blood 582 mg/dL (60-115)
[2021-04-14 19:11] LABS: Glucose, Whole Blood 581 mg/dL (60-115)
[2021-04-14 19:45] LABS: Glucose, Whole Blood 430 mg/dL (60-115)
[2021-04-14] MEDS: QUEtiapine Fumarate 50 MG TABLET PO (20:10)
[2021-04-14] MEDS: traZODone HCL 50 MG TABLET PO (20:10)
--- NOTE | 2021-04-14 20:14 | P.HPCC_ITS ---
History of Present Illness Date of Service: 04/14/21 Attending physician on admission: Tino Don Chief Complaint: AMS This is a 56-year-old male with a past medical history of diabetes mellitus with noncompliance with metformin and neuropathy? who presented to the emergency room? via EMS? with complaints of altered mental status.? History was obtained from the mother,? who said she called 911 after the patient ? sustained a fall and was noted to be weak with no LOC.? She reported the patient has experienced cold-like symptoms past week and noncompliance with metformin for the past s everal months. She also said the patient has multiple wounds in his right foot.? He is not vaccinated for COVID. In the emergency room,? he was noted to be confused,? low-grade temp to 100.1,? tachypneic,? and tachycardic? satting 94% on room air.? Laboratory data was significant for:? WBC 19.2, abs neutrophils 18,? sodium 127, chloride 84, BUN 58, and 2.14, serum glucose 1141,? lactic acid 3.3,? alk phos 120, BNP 206,? albumin 2.8.? Urine? glucose? significantly elevated.? COVID-19 positive ?Imaging:? ?Head CT:? no acute intracranial? bleed ?Chest x-ray: no acute? findings ?Right foot x-ray: Soft tissue ulceration/wound along the base of the fifth distal metatarsal with suspicion for two? radiopaque foreign bodies.? No evidence of osteomyelitis ?ED course:? patient received? 30 cc/kg fluid bolus,? 10 units of IV insulin,? empiric dose of vancomycin and Zosyn,? and was started on a insulin drip.? ?Patient will be admitted to the ICU for management of? hyperosmolar hyperglycemic? syndrome ? And? sepsis requiring insulin drip. Review of Systems Review of Systems: unable to do due to patient underlying altered mental status PMFSH Social History Social History Household Members: Family Housing: Unknown / Unable to assess Unable to assess alcohol history related to: Refusing to respond Alcohol intake: current Alcohol intake frequency: a few times a week Patient Tobacco Use Status: Current everyday Tobacco user Smoked in Last 30 Days: Yes Patient Interested in Nicotine Replacement: No Patient Given Instructions on How to Stop Smoking: No Second Hand Smoke Exposure: No Use of substances other than those prescribed or required for medical reasons: Unknown Advance Directives: No Advance Directives Information Provided: No Do you have thoughts of harming others: None Do you have a plan to hurt others: No Plan Recently lost weight without trying: No Eating poorly because of decreased appetite: No Nutrition Risks: No Nutritional Risk and Diabetes new onset/Uncontrolled Meds Allergies Allergy/AdvReac Type Severity Reaction Status Date / Time No Known Allergies Allergy Unverified 12/10/19 14:45 [No Known Allergies*] Active Medications: Current Medications Heparin Sodium (Porcine) (Heparin Sodium,Porcine 5,000 Unit/Ml Vial) 5,000 unit SUBCUT Q8H [facility] Last Admin: 04/14/21 18:05 Dose: 5,000 unit Documented by: Insulin Human Regular (Myxredlin) 100 unit in 100 mls @ 0 mls/hr IVCONT .Q0M [facility]; Protocol Last Titration: 04/14/21 19:26 Dose: 10 units/hr, 10 mls/hr Documented by: Lactated Ringer's (Lr) 1,000 mls @ 150 mls/hr IVCONT .Q6H40M [facility] Last Admin: 04/14/21 18:05 Dose: 150 mls/hr Documented by: Piperacillin Sod/Tazobactam (Sod 3.375 gm/ Sodium Chloride) 50 mls @ 100 mls/hr IV Q6H [facility] Last Infusion: 04/14/21 18:31 Dose: Infused Documented by: Vancomycin HCl 750 mg/ Sodium (Chloride) 265 mls @ 265 mls/hr IV Q12H [facility] Ondansetron HCl (Ondansetron Hcl 4 Mg/2 Ml Vial) 4 mg IVPUSH Q8H PRN PRN Reason: Nausea Pharmacy Consult (Consult Rx Perform Med Rec) 1 each MISCELLANE ONCE PRN PRN Reason: Consult order Pharmacy Consult (Consult Rx Vancomycin Dosing) 1 each MISCELLANE DAILY PRN PRN Reason: Consult order Home Medications Medication Instructions Recorded Confirmed Last Taken Type No Known Home Meds 04/14/21 04/14/21 Unknown History Physical Exam Vital Signs: Vital Signs: Last Vital Signs Temp 100.8 F H 04/14/21 20:00 Pulse 105 H 04/14/21 20:00 Resp 28 H 04/14/21 20:00 BP 149/77 H 04/14/21 20:00 Pulse Ox 95 04/14/21 20:00 BMI result Body Mass Index 25.0 Constitutional: No acute distress,, Confused, pulling at lines HEENT: Normocephalic, atraumatic, PERRLA, oropharynx clear, dry mucus membranes, Pupils are equal, round and reactive to light. Extraocular muscles intact. Neck Supple, Full range of motion. Respiratory: lungs are clear to auscultation, no wheezes or rhonchi Cardiac: RRR, +S1/S2, no murmurs/rubs, pulses palpable and equal in all extremities. bilateral feet edema, right > left Gastrointestinal: +BS, non-tender to palpation, non-distended Neurologic: Would not cooperate with the exam, speech was clear, no apparent facial asymmetry, 5 out of 5 strength in upper extremities, able to move abby ateral extremities spontaneously Musculoskeletal: multiple wounds on right foot. See pictures on emergency room documentation. Skin: very dry skin Psych: anxious Results Labs CBC and Chem 7: 04/14/21 09:31 04/14/21 16:32 Labs: Laboratory Results - last 24 hr 04/14/21 04/14/21 04/14/21 08:29 08:40 09:31 MCV 90.7 MCH 29.5 MCHC 32.6 RDW 13.4 Plt Count 363 MPV 11.9 Immature Gran % (Auto) Cancelled Neut % (Auto) Cancelled Lymph % (Auto) Cancelled Mcintosh % (Auto) Cancelled Eos % (Auto) Cancelled Baso % (Auto) Cancelled Lymph # (Auto) Cancelled Mcintosh # (Auto) Cancelled Eos # (Auto) Cancelled Baso # (Auto) Cancelled Abs Immat Gran (auto) Cancelled Absolute Neuts (auto) Cancelled Absolute Nucleated RBC 0.000 Nucleated RBC % (auto) 0.0 Neutrophils % (Manual) 81 H Band Neutrophils % 13 H Monocytes % (Manual) 6 Abs Neuts (Manual) 18.0 H Monocytes # (Manual) 1.2 Dohle Bodies PRESENT Platelet Estimate NORMAL Plt Morphology Comment NORMAL RBC Morphology NOTED ESR PT INR APTT VBG pH VBG pCO2 VBG pO2 VBG HCO3 VBG O2 Saturation VBG Base Excess Anion Gap Estim Creat Clear Calc Estimated GFR POC Glucose > 600 H* > 600 H* Random Glucose Osmolality Lactic Acid Lactic Acid F/U @ 2Hr Lactic Acid F/U @ 4Hr Calcium Magnesium Total Bilirubin Direct Bilirubin AST ALT Alkaline Phosphatase Total Creatine Kinase Troponin I High Sens C-Reactive Protein B-Natriuretic Peptide Total Protein Albumin Lipase Urine Color Urine Appearance Urine pH Ur Specific [place] Urine Protein Urine Glucose (UA) Urine Ketones Urine Blood Urine Nitrite Ur Leukocyte Esterase Urine RBC Urine WBC Ur Squamous Epith Cells Amorphous Sediment Urine Bacteria Urine Opiates Screen Urine Fentanyl Screen Ur Barbiturates Screen Ur Phencyclidine Scrn Ur Amphetamines Screen U Benzodiazepines Scrn Urine Cocaine Screen U Marijuana (THC) Screen Ethyl Alcohol Acetone, Qual COVID-19 (BENNIE) COVID-19 [employer] 04/14/21 04/14/21 04/14/21 09:31 09:31 09:31 MCV MCH MCHC RDW Plt Count MPV Immature Gran % (Auto) Neut % (Auto) Lymph % (Auto) Mcintosh % (Auto) Eos % (Auto) Baso % (Auto) Lymph # (Auto) Mcintosh # (Auto) Eos # (Auto) Baso # (Auto) Abs Immat Gran (auto) Absolute Neuts (auto) Absolute Nucleated RBC Nucleated RBC % (auto) Neutrophils % (Manual) Band Neutrophils % Monocytes % (Manual) Abs Neuts (Manual) Monocytes # (Manual) Dohle Bodies Platelet Estimate Plt Morphology Comment RBC Morphology ESR PT INR APTT VBG pH VBG pCO2 VBG pO2 VBG HCO3 VBG O2 Saturation VBG Base Excess Anion Gap 23 H Estim Creat Clear Calc 46.0 Estimated GFR 32 POC Glucose Random Glucose 1141 H* Osmolality Lactic Acid 3.3 H* Lactic Acid F/U @ 2Hr Lactic Acid F/U @ 4Hr Calcium 9.8 Magnesium 2.3 Total Bilirubin 0.3 Direct Bilirubin 0.3 AST 24 ALT 19 Alkaline Phosphatase 120 H Total Creatine Kinase 223 H Troponin I High Sens 3.7 C-Reactive Protein 29.47 H B-Natriuretic Peptide Total Protein 7.2 Albumin 2.8 L Lipase 50 Urine Color Urine Appearance Urine pH Ur Specific [place] Urine Protein Urine Glucose (UA) Urine Ketones Urine Blood Urine Nitrite Ur Leukocyte Esterase Urine RBC Urine WBC Ur Squamous Epith Cells Amorphous Sediment Urine Bacteria Urine Opiates Screen Urine Fentanyl Screen Ur Barbiturates Screen Ur Phencyclidine Scrn Ur Amphetamines Screen U Benzodiazepines Scrn Urine Cocaine Screen U Marijuana (THC) Screen Ethyl Alcohol Acetone, Qual COVID-19 (BENNIE) COVID-19 Clin Com 04/14/21 04/14/21 04/14/21 09:31 09:31 09:31 MCV MCH MCHC RDW Plt Count MPV Immature Gran % (Auto) Neut % (Auto) Lymph % (Auto) Mcintosh % (Auto) Eos % (Auto) Baso % (Auto) Lymph # (Auto) Mcintosh # (Auto) Eos # (Auto) Baso # (Auto) Abs Immat Gran (auto) Absolute Neuts (auto) Absolute Nucleated RBC Nucleated RBC % (auto) Neutrophils % (Manual) Band Neutrophils % Monocytes % (Manual) Abs Neuts (Manual) Monocytes # (Manual) Dohle Bodies Platelet Estimate Plt Morphology Comment RBC Morphology ESR PT 13.4 H INR 1.2 H APTT 25.6 VBG pH VBG pCO2 VBG pO2 VBG HCO3 VBG O2 Saturation VBG Base Excess Anion Gap Estim Creat Clear Calc Estimated GFR POC Glucose Random Glucose Osmolality Lactic Acid Lactic Acid F/U @ 2Hr Lactic Acid F/U @ 4Hr Calcium Magnesium Total Bilirubin Direct Bilirubin AST ALT Alkaline Phosphatase Total Creatine Kinase Troponin I High Sens C-Reactive Protein B-Natriuretic Peptide 206 H Total Protein Albumin Lipase Urine Color Urine Appearance Urine pH Ur Specific [place] Urine Protein Urine Glucose (UA) Urine Ketones Urine Blood Urine Nitrite Ur Leukocyte Esterase Urine RBC Urine WBC Ur Squamous Epith Cells Amorphous Sediment Urine Bacteria Urine Opiates Screen Urine Fentanyl Screen Ur Barbiturates Screen Ur Phencyclidine Scrn Ur Amphetamines Screen U Benzodiazepines Scrn Urine Cocaine Screen U Marijuana (THC) Screen Ethyl Alcohol Acetone, Qual COVID-19 (BENNIE) Positive A COVID-19 Clin Com See Note 04/14/21 04/14/21 04/14/21 09:31 09:31 09:31 MCV MCH MCHC RDW Plt Count MPV Immature Gran % (Auto) Neut % (Auto) Lymph % (Auto) Mcintosh % (Auto) Eos % (Auto) Baso % (Auto) Lymph # (Auto) Mcintosh # (Auto) Eos # (Auto) Baso # (Auto) Abs Immat Gran (auto) Absolute Neuts (auto) Absolute Nucleated RBC Nucleated RBC % (auto) Neutrophils % (Manual) Band Neutrophils % Monocytes % (Manual) Abs Neuts (Manual) Monocytes # (Manual) Dohle Bodies Platelet Estimate Plt Morphology Comment RBC Morphology ESR 81 H PT INR APTT VBG pH VBG pCO2 VBG pO2 VBG HCO3 VBG O2 Saturation VBG Base Excess Anion Gap Estim Creat Clear Calc Estimated GFR POC Glucose Random Glucose Osmolality Lactic Acid Lactic Acid F/U @ 2Hr Lactic Acid F/U @ 4Hr Calcium Magnesium Total Bilirubin Direct Bilirubin AST ALT Alkaline Phosphatase Total Creatine Kinase Troponin I High Sens C-Reactive Protein B-Natriuretic Peptide Total Protein Albumin Lipase Urine Color Urine Appearance Urine pH Ur Specific [place] Urine Protein Urine Glucose (UA) Urine Ketones Urine Blood Urine Nitrite Ur Leukocyte Esterase Urine RBC Urine WBC Ur Squamous Epith Cells Amorphous Sediment Urine Bacteria Urine Opiates Screen Urine Fentanyl Screen Ur Barbiturates Screen Ur Phencyclidine Scrn Ur Amphetamines Screen U Benzodiazepines Scrn Urine Cocaine Screen U Marijuana (THC) Screen Ethyl Alcohol < 10 Acetone, Qual Small H COVID-19 (BENNIE) COVID-19 Clin Com 04/14/21 04/14/21 04/14/21 09:31 09:35 10:25 MCV MCH MCHC RDW Plt Count MPV Immature Gran % (Auto) Neut % (Auto) Lymph % (Auto) Mcintosh % (Auto) Eos % (Auto) Baso % (Auto) Lymph # (Auto) Mcintosh # (Auto) Eos # (Auto) Baso # (Auto) Abs Immat Gran (auto) Absolute Neuts (auto) Absolute Nucleated RBC Nucleated RBC % (auto) Neutrophils % (Manual) Band Neutrophils % Monocytes % (Manual) Abs Neuts (Manual) Monocytes # (Manual) Dohle Bodies Platelet Estimate Plt Morphology Comment RBC Morphology ESR PT INR APTT VBG pH 7.36 VBG pCO2 41 VBG pO2 52 VBG HCO3 23 VBG O2 Saturation 74.0 VBG Base Excess -1.4 Anion Gap Estim Creat Clear Calc Estimated GFR POC Glucose Random Glucose Osmolality 355 H Lactic Acid Lactic Acid F/U @ 2Hr Lactic Acid F/U @ 4Hr Calcium Magnesium Total Bilirubin Direct Bilirubin AST ALT Alkaline Phosphatase Total Creatine Kinase Troponin I High Sens C-Reactive Protein B-Natriuretic Peptide Total Protein Albumin Lipase Urine Color Urine Appearance Urine pH Ur Specific [place] Urine Protein Urine Glucose (UA) Urine Ketones Urine Blood Urine Nitrite Ur Leukocyte Esterase Urine RBC Urine WBC Ur Squamous Epith Cells Amorphous Sediment Urine Bacteria Urine Opiates Screen Not Detected Urine Fentanyl Screen Not Detected Ur Barbiturates Screen Not Detected Ur Phencyclidine Scrn Not Detected Ur Amphetamines Screen Not Detected U Benzodiazepines Scrn Not Detected Urine Cocaine Screen Not Detected U Marijuana (THC) Screen Not Detected Ethyl Alcohol Acetone, Qual COVID-19 (BENNIE) COVID-19 [employer] [facility] 04/14/21 04/14/21 04/14/21 10:25 10:45 12:05 MCV MCH MCHC RDW Plt Count MPV Immature Gran % (Auto) Neut % (Auto) Lymph % (Auto) Mcintosh % (Auto) Eos % (Auto) Baso % (Auto) Lymph # (Auto) Mcintosh # (Auto) Eos # (Auto) Baso # (Auto) Abs Immat Gran (auto) Absolute Neuts (auto) Absolute Nucleated RBC Nucleated RBC % (auto) Neutrophils % (Manual) Band Neutrophils % Monocytes % (Manual) Abs Neuts (Manual) Monocytes # (Manual) Dohle Bodies Platelet Estimate Plt Morphology Comment RBC Morphology ESR PT INR APTT VBG pH VBG pCO2 VBG pO2 VBG HCO3 VBG O2 Saturation VBG Base Excess Anion Gap Estim Creat Clear Calc Estimated GFR POC Glucose > 600 H* > 600 H* Random Glucose Osmolality Lactic Acid Lactic Acid F/U @ 2Hr Lactic Acid F/U @ 4Hr Calcium Magnesium Total Bilirubin Direct Bilirubin AST ALT Alkaline Phosphatase Total Creatine Kinase Troponin I High Sens C-Reactive Protein B-Natriuretic Peptide Total Protein Albumin Lipase Urine Color STRAW Urine Appearance HAZY Urine pH 5.5 Ur Specific [place] <= 1.005 Urine Protein TRACE Urine Glucose (UA) >=1000 H Urine Ketones 15 Urine Blood 1+ H Urine Nitrite NEG Ur Leukocyte Esterase NEG Urine RBC 1-4 Urine WBC 0-2 Ur Squamous Epith Cells TRACE Amorphous Sediment 1+ Urine Bacteria TRACE Urine Opiates Screen Urine Fentanyl Screen Ur Barbiturates Screen Ur Phencyclidine Scrn Ur Amphetamines Screen U Benzodiazepines Scrn Urine Cocaine Screen U Marijuana (THC) Screen Ethyl Alcohol Acetone, Qual COVID-19 (BENNIE) COVID-19 Clin Com 04/14/21 04/14/21 04/14/21 12:16 12:16 13:07 MCV MCH MCHC RDW Plt Count MPV Immature Gran % (Auto) Neut % (Auto) Lymph % (Auto) Mcintosh % (Auto) Eos % (Auto) Baso % (Auto) Lymph # (Auto) Mcintosh # (Auto) Eos # (Auto) Baso # (Auto) Abs Immat Gran (auto) Absolute Neuts (auto) Absolute Nucleated RBC Nucleated RBC % (auto) Neutrophils % (Manual) Band Neutrophils % Monocytes % (Manual) Abs Neuts (Manual) Monocytes # (Manual) Dohle Bodies Platelet Estimate Plt Morphology Comment RBC Morphology ESR PT INR APTT VBG pH VBG pCO2 VBG pO2 VBG HCO3 VBG O2 Saturation VBG Base Excess Anion Gap 19 Estim Creat Clear Calc 54.7 Estimated GFR 39 POC Glucose > 600 H* Random Glucose 877 H* Osmolality Lactic Acid Lactic Acid F/U @ 2Hr 2.2 H* Lactic Acid F/U @ 4Hr Calcium 9.2 D Magnesium Total Bilirubin Direct Bilirubin AST ALT Alkaline Phosphatase Total Creatine Kinase Troponin I High Sens C-Reactive Protein B-Natriuretic Peptide Total Protein Albumin Lipase Urine Color Urine Appearance Urine pH Ur Specific [place] Urine Protein Urine Glucose (UA) Urine Ketones Urine Blood Urine Nitrite Ur Leukocyte Esterase Urine RBC Urine WBC Ur Squamous Epith Cells Amorphous Sediment Urine Bacteria Urine Opiates Screen Urine Fentanyl Screen Ur Barbiturates Screen Ur Phencyclidine Scrn Ur Amphetamines Screen U Benzodiazepines Scrn Urine Cocaine Screen U Marijuana (THC) Screen Ethyl Alcohol Acetone, Qual COVID-19 (BENNIE) COVID-19 Clin Com 04/14/21 04/14/21 04/14/21 13:39 14:13 14:39 MCV MCH MCHC RDW Plt Count MPV Immature Gran % (Auto) Neut % (Auto) Lymph % (Auto) [place] % (Auto) Eos % (Auto) Baso % (Auto) Lymph # (Auto) Mcintosh # (Auto) Eos # (Auto) Baso # (Auto) Abs Immat Gran (auto) Absolute Neuts (auto) Absolute Nucleated RBC Nucleated RBC % (auto) Neutrophils % (Manual) Band Neutrophils % Monocytes % (Manual) Abs Neuts (Manual) Monocytes # (Manual) Dohle Bodies Platelet Estimate Plt Morphology Comment RBC Morphology ESR PT INR APTT VBG pH VBG pCO2 VBG pO2 VBG HCO3 VBG O2 Saturation VBG Base Excess Anion Gap 17 Estim Creat Clear Calc 57.9 Estimated GFR 42 POC Glucose > 600 H* Random Glucose 777 H* Osmolality Lactic Acid Lactic Acid F/U @ 2Hr Lactic Acid F/U @ 4Hr 1.7 Calcium 9.2 Magnesium Total Bilirubin Direct Bilirubin AST ALT Alkaline Phosphatase Total Creatine Kinase Troponin I High Sens C-Reactive Protein B-Natriuretic Peptide Total Protein Albumin Lipase Urine Color Urine Appearance Urine pH Ur Specific [place] Urine Protein Urine Glucose (UA) Urine Ketones Urine Blood Urine Nitrite Ur Leukocyte Esterase Urine RBC Urine WBC Ur Squamous Epith Cells Amorphous Sediment Urine Bacteria Urine Opiates Screen Urine Fentanyl Screen Ur Barbiturates Screen Ur Phencyclidine Scrn Ur Amphetamines Screen U Benzodiazepines Scrn Urine Cocaine Screen U Marijuana (THC) Screen Ethyl Alcohol Acetone, Qual COVID-19 (BENNIE) COVID-19 [employer] 04/14/21 04/14/21 04/14/21 15:26 15:26 16:30 MCV MCH MCHC RDW Plt Count MPV Immature Gran % (Auto) Neut % (Auto) Lymph % (Auto) Mcintosh % (Auto) Eos % (Auto) Baso % (Auto) Lymph # (Auto) Mcintosh # (Auto) Eos # (Auto) Baso # (Auto) Abs Immat Gran (auto) Absolute Neuts (auto) Absolute Nucleated RBC Nucleated RBC % (auto) Neutrophils % (Manual) Band Neutrophils % Monocytes % (Manual) Abs Neuts (Manual) Monocytes # (Manual) Dohle Bodies Platelet Estimate Plt Morphology Comment RBC Morphology ESR PT INR APTT VBG pH VBG pCO2 VBG pO2 VBG HCO3 VBG O2 Saturation VBG Base Excess Anion Gap 15 Estim Creat Clear Calc 63.1 Estimated GFR 46 POC Glucose 600 H* > 600 H* Random Glucose 724 H* Osmolality Lactic Acid Lactic Acid F/U @ 2Hr Lactic Acid F/U @ 4Hr Calcium 9.4 Magnesium Total Bilirubin Direct Bilirubin AST ALT Alkaline Phosphatase Total Creatine Kinase Troponin I High Sens C-Reactive Protein B-Natriuretic Peptide Total Protein Albumin Lipase Urine Color Urine Appearance Urine pH Ur Specific [place] Urine Protein Urine Glucose (UA) Urine Ketones Urine Blood Urine Nitrite Ur Leukocyte Esterase Urine RBC Urine WBC Ur Squamous Epith Cells Amorphous Sediment Urine Bacteria Urine Opiates Screen Urine Fentanyl Screen Ur Barbiturates Screen Ur Phencyclidine Scrn Ur Amphetamines Screen U Benzodiazepines Scrn Urine Cocaine Screen U Marijuana (THC) Screen Ethyl Alcohol Acetone, Qual COVID-19 (BENNIE) COVID-19 [employer] 04/14/21 04/14/21 04/14/21 16:32 16:37 17:48 MCV MCH MCHC RDW Plt Count MPV Immature Gran % (Auto) Neut % (Auto) Lymph % (Auto) Mcintosh % (Auto) Eos % (Auto) Baso % (Auto) Lymph # (Auto) Mcintosh # (Auto) Eos # (Auto) Baso # (Auto) Abs Immat Gran (auto) Absolute Neuts (auto) Absolute Nucleated RBC Nucleated RBC % (auto) Neutrophils % (Manual) Band Neutrophils % Monocytes % (Manual) Abs Neuts (Manual) Monocytes # (Manual) Dohle Bodies Platelet Estimate Plt Morphology Comment RBC Morphology ESR PT INR APTT VBG pH VBG pCO2 VBG pO2 VBG HCO3 VBG O2 Saturation VBG Base Excess Anion Gap 14 Estim Creat Clear Calc 62.7 Estimated GFR 46 POC Glucose 587 H* 522 H* Random Glucose 675 H* Osmolality Lactic Acid Lactic Acid F/U @ 2Hr Lactic Acid F/U @ 4Hr Calcium 9.4 Magnesium Total Bilirubin < 0.2 Direct Bilirubin AST 25 ALT 17 Alkaline Phosphatase 103 Total Creatine Kinase Troponin I High Sens C-Reactive Protein B-Natriuretic Peptide Total Protein 6.5 Albumin 2.5 L Lipase Urine Color Urine Appearance Urine pH Ur Specific [place] Urine Protein Urine Glucose (UA) Urine Ketones Urine Blood Urine Nitrite Ur Leukocyte Esterase Urine RBC Urine WBC Ur Squamous Epith Cells Amorphous Sediment Urine Bacteria Urine Opiates Screen Urine Fentanyl Screen Ur Barbiturates Screen Ur Phencyclidine Scrn Ur Amphetamines Screen U Benzodiazepines Scrn Urine Cocaine Screen U Marijuana (THC) Screen Ethyl Alcohol Acetone, Qual COVID-19 (BENNIE) COVID-19 Clin Com 04/14/21 04/14/21 04/14/21 18:07 19:06 19:41 MCV MCH MCHC RDW Plt Count MPV Immature Gran % (Auto) Neut % (Auto) Lymph % (Auto) Mcintosh % (Auto) Eos % (Auto) Baso % (Auto) Lymph # (Auto) Mcintosh # (Auto) Eos # (Auto) Baso # (Auto) Abs Immat Gran (auto) Absolute Neuts (auto) Absolute Nucleated RBC Nucleated RBC % (auto) Neutrophils % (Manual) Band Neutrophils % Monocytes % (Manual) Abs Neuts (Manual) Monocytes # (Manual) Dohle Bodies Platelet Estimate Plt Morphology Comment RBC Morphology ESR PT INR APTT VBG pH VBG pCO2 VBG pO2 VBG HCO3 VBG O2 Saturation VBG Base Excess Anion Gap Estim Creat Clear Calc Estimated GFR POC Glucose 582 H* 581 H* 430 H* Random Glucose Osmolality Lactic Acid Lactic Acid F/U @ 2Hr Lactic Acid F/U @ 4Hr Calcium Magnesium Total Bilirubin Direct Bilirubin AST ALT Alkaline Phosphatase Total Creatine Kinase Troponin I High Sens C-Reactive Protein B-Natriuretic Peptide Total Protein Albumin Lipase Urine Color Urine Appearance Urine pH Ur Specific [place] Urine Protein Urine Glucose (UA) Urine Ketones Urine Blood Urine Nitrite Ur Leukocyte Esterase Urine RBC Urine WBC Ur Squamous Epith Cells Amorphous Sediment Urine Bacteria Urine Opiates Screen Urine Fentanyl Screen Ur Barbiturates Screen Ur Phencyclidine Scrn Ur Amphetamines Screen U Benzodiazepines Scrn Urine Cocaine Screen U Marijuana (THC) Screen Ethyl Alcohol Acetone, Qual COVID-19 (BENNIE) COVID-19 Clin Com Imaging Radiologist's Impressions: Impressions Chest X-Ray 04/14/21 09:00 IMPRESSION: No acute disease. Head CT 04/14/21 09:02 IMPRESSION: No acute intracranial pathology. Foot X-Ray 04/14/21 10:15 IMPRESSION: Soft tissue ulceration/wound along the base of the fifth distal metatarsal with suspicion for two radiopaque foreign bodies. There is no evidence of osteomyelitis, fracture or dislocation. Assessment and Plan (1) Hyperosmolar hyperglycemic state (HHS): Status: Acute (2) Severe sepsis: Status: Acute (3) COVID-19: Status: Acute (4) Diabetic foot infection: Status: Acute (5) Acute metabolic encephalopathy: Status: Acute (6) IRAIDA (acute kidney injury): Status: Acute 56-year-old male with a past medical history of diabetes mellitus with history of noncompliance with medication regimen? admitted to the ICU for HSS and severe sepsis Neuro:?Acute encephalopathy:? head CT was negative for any acute findings. ? He continues to be confused,? attempting to pull lines.? This could be likely to? hyperosmolar hyperglycemic syndrome.? Will continue to manage? HHS.? continue frequent? neuro assessments Cardiac:?? Severe Sepsis:? patient has multiple? right foot? wounds/? ulcers. ? Febrile to 100.8, Slightly elevated lactic to 3.3,? that is resolving after fluid bolus. ? Patient is not in septic shock. ? He received empiric antibiotics in the emergency room.? Will continue with empiric antibiotics.? Pulmonary:?? ?COVID-19? infection:? patient is in room air,? in no respiratory distress.? Continue to closely monitor for worsening COVID-19 symptoms.? Renal:? IRAIDA- ? most likely related to hypoperfusion nonoliguric.? Continue ? Aggressive IV fluids.? Continue to check renal induces and urine output ?GI:?? ?No acute issues Endo:??? type 2 diabetes / hyperosmolar hyperglycemic syndrome - ? non DKA as no gap, bicarb was stable, ? No ketones. Will continue insulin drip. Follow Non-DKA protocol? ID:?? ?Severe sepsis: WBC elevated to? 19, neutrophils 83.5%.? COVID positive.? He has multiple wounds / ulcers on the right foot.? Foot x-ray did not show signs of osteomyelitis at this time.? But will? place consult for General surgery to follow up.? Continue vancomycin and Zosyn.? Heme/Onc:? No acute issues. Psych:? No acute issues. Miscellaneous:? No acute issues. Prophylaxis:? Heparin Subcut Diet: ? NPO?? Critical care time: 30x minutes of critical care time? CODE: FULL Critical Care Time Critical Care Time (minutes): 30
[2021-04-14 20:38] LABS: Glucose, Whole Blood 379 mg/dL (60-115)
--- NOTE | 2021-04-14 20:41 | PC.NURSE ---
Skin/wound assessment completed today. Patient has 3 diabetic ulcer to dorsal and plantar foot with edema, Triad applied to all ulcers covered with non woven gauze and roll gauze. Patient also has a puncture wound to left posterior thigh- Triad and foam applied. No other skin issues noted at this time.
[2021-04-14 21:49] LABS: Glucose, Whole Blood 281 mg/dL (60-115)
[2021-04-14] MEDS: vancomycin HCL 750 MG in 0.9 % Sodium Chloride 250 ML 265 MG IV (22:12)
[2021-04-14 22:46] LABS: Glucose, Whole Blood 311 mg/dL (60-115)
[2021-04-15] VITALS (19 sets, daily range): BP systolic 134–191; BP diastolic 65–93; PULSE 108–203; RESP 10–47; TEMP 36.7–38.7; O2SAT 90–96; BMI 32.9
[2021-04-15 00:19] LABS: Glucose, Whole Blood 241 mg/dL (60-115)
[2021-04-15] MEDS: Insulin Regular/NS 100 UNIT/100 ML PLAST..BAG 7 UNIT IVCONT (00:19)
[2021-04-15] MEDS: Acetaminophen 325 MG TABLET 650 MG PO (00:20)
[2021-04-15] MEDS: Dextrose 5 % and Lactated Ring 1,000 ML 150 ML IVCONT ×2 (00:40→06:27)
[2021-04-15 01:17] LABS: Glucose, Whole Blood 225 mg/dL (60-115)
--- NOTE | 2021-04-15 01:38 | PC.NURSE ---
Assumed care of pt at 1900. Pt confused. He is restless and irritated, swearing at caregivers. Jermaine Collins at bedside. Pt given po trazadone and seroquel with good effect. He is calmer now and follows simple commands but is still a bit restless. Wound care nurse in to see pt and cleansed wound on right foot and dressed it with triad and dsd covered with gauze wrap. Pt denied pain and tolerated procedure well. Temp 101.5 rectal. Tylenol given with no effect. Monitor shows NSR-ST. BP stable.
[2021-04-15] MEDS: Heparin Sodium,Porcine 5,000 UNIT/ML VIAL 5000 UNIT SUBCUT ×3 (02:14→16:35)
[2021-04-15 03:17] LABS: Glucose, Whole Blood 216 mg/dL (60-115)
[2021-04-15 04:05] LABS: Glucose, Whole Blood 178 mg/dL (60-115)
--- NOTE | 2021-04-15 04:43 | PC.NURSE ---
When pt was restless in bed, he sheared off the toenail of the 3rd toe on the right. It was observed at the time the dsg was applied, approx 1999 last night, that the nail was loose. Zeroform gauze applied covered by a bandaid. Pt denies pain.
[2021-04-15] MEDS: Piperacillin Sodium/Tazobactam 3.375 GM in 0.9 % Sodium Chloride 50 ML IV ×4 (05:06→22:17)
[2021-04-15 05:43] LABS: VBG Base Excess 8.6 mmol/L; VBG HCO3 32 mmol/L (22-26); VBG pCO2 39 mmHg; VBG pH 7.51 (7.32-7.43); VBG pO2 69 mmHg
[2021-04-15 05:44] LABS: Venous Blood Gas Refer to POC result
[2021-04-15 06:05] LABS: Hematocrit 34.6 % (42.0-52.0); Hemoglobin 11.8 g/dl (14.0-18.0); Mean Corpuscular HGB Conc 34.1 g/dl (31.0-36.0); Mean Corpuscular Hemoglobin 29.6 pg (27.0-33.0); Mean Corpuscular Volume 86.9 fL (80.0-98.0); Mean Platelet Volume 10.8 fL (9.4-12.4); Platelet Count 299 X10*3/uL (160-400); Red Blood Count 3.98 X10*6/uL (4.60-5.80); Red Cell Distribution Width 12.9 % (11.0-16.0)
[2021-04-15 06:14] LABS: WBC ABN SCTR FOR CBC 1
[2021-04-15 06:15] LABS: White Blood Count 15.6 X10*3/uL (4.8-10.8)
[2021-04-15 06:24] LABS: Albumin Level 2.2 g/dL (3.5-5.0); Anion Gap 12 (12-20); Blood Urea Nitrogen 42 mg/dL (9-16); Calcium 9.5 mg/dL (8.4-10.2); Carbon Dioxide 30 mmol/L (22-29); Chloride 110 mmol/L (96-108); Creatinine Clr Calc Pharmacy 93.8; Estimated Glomerular Filt Rate > 60; Glucose Random 178 mg/dL (60-115); Potassium 3.7 mmol/L (3.3-5.1); Sodium 148 mmol/L (135-145)
[2021-04-15 06:29] LABS: Glucose, Whole Blood 160 mg/dL (60-115)
[2021-04-15 06:45] LABS: Band Neutrophils Percent 17 % (3-5); Eosinophils Absolute Manual 0.2 X10*3/uL (0.0-0.4); Eosinophils Percent Manual 1 % (0-4); Lymphocytes Absolute Manual 0.8 X10*3/uL (1.2-4.9); Lymphocytes Percent Manual 5 % (20-40); Monocytes Absolute Manual 1.2 X10*3/uL (0.1-1.2); Monocytes Percent Manual 8 % (2-11); Neutrophils Absolute Manual 13.4 X10*3/uL (2.0-8.3); Neutrophils Percent Manual 69 % (45-73)
[2021-04-15 06:47] LABS: Large Platelet PRESENT; Microcytosis 1+ (5-14) /OIF; Platelet Estimate NORMAL (NORMAL); Platelet Morphology Comment NORMAL; RBC Morphology NOTED; Target Cells 1+ (5-14) /OIF
[2021-04-15 06:49] LABS: Dohle Bodies PRESENT
--- NOTE | 2021-04-15 07:17 | HE.PHANOTE ---
Vancomycin Addendum Renal function improved over night. SCr was 1.57 on 04/14 @ 1632 and now 1.05 on 04/15 @ 0533. If 750 mg Q12H was continued AUC is expected to be subtherapeutic. Will Increase vancomycin to 1000 mg Q12H. Expected AUC 501 with a trough of 16.2. Trough schedule to be darn 04/15 @ 2000. Pharmacy will continue to monitor renal function daily. Deedee Cano, PharmD
[2021-04-15 07:45] LABS: Glucose, Whole Blood 164 mg/dL (60-115)
[2021-04-15] MEDS: vancomycin HCL 1,000 MG in 0.9 % Sodium Chloride 250 ML 270 MG IV (08:28)
[2021-04-15] MEDS: Albumin Human 25 % 100 ML IV ×3 (09:49→20:07)
[2021-04-15] MEDS: Insulin Glargine,Hum.rec.anlog 100 UNIT/ML 10 ML VIAL 40 UNIT SUBCUT (09:49)
[2021-04-15 10:40] LABS: Glucose, Whole Blood 181 mg/dL (60-115)
--- NOTE | 2021-04-15 11:48 | MHC.CM.PN ---
Pt with + COVID and right foot wounds: attempted to meet with pt to discuss d/c planning: per discussion with pt's RN, he is confused and not able to participate in meaningful conversation at this time. Call placed to pt's next of kin, mother Sophie: message left. Will await callback and/or reapproach pt when he is not confused. Unvaxed per EMR, no HCP noted and from home.
--- NOTE | 2021-04-15 12:24 | P.PNCC_ITS ---
Subjective Subjective Date of Service: 04/15/21 Interval History: 56-year-old gentleman with underlying history of diabetes mellitus, hypertension medication compliance, prior history of osteomyelitis admitted on 04/14/2021 after mechanical fall secondary to weakness and lethargy. On ER evaluation patient was noted to be COVID positive but does not requiring supplemental oxygen. His laboratory evaluation was significant for leukocytosis and diabetic hyperglycemic hyperosmolar state. His foot x-ray demonstrated no tissue gas or bony erosions. Patient was started on insulin drip and broad- spectrum antibiotics and admitted to intensive care unit. Overnight titrated off insulin drip, remains significantly confused. Critical Care Time (minutes): 0 Physical Exam Vital Signs: Vital Signs: Last Vital Signs Temp 98.3 F 04/15/21 08:00 Pulse 119 H 04/15/21 12:00 Resp 14 04/15/21 12:00 BP 191/93 H 04/15/21 12:00 Pulse Ox 90 L 04/15/21 12:00 BMI result Body Mass Index 32.9 Const: General: no acute distress, confusion and lethargic (Arousable) Orientation/consciousness: confusion and lethargic (Arousable) Eyes: Sclerae: sclerae normal EOM: EOMs intact bilaterally Neck: Neck: Yes no lymphadenopathy, Yes trachea midline and Yes supple Resp: Effort & Inspection: normal respiratory effort and no respiratory distress Auscultation: clear to auscultation bilaterally Cardio: Rate: tachycardic Rhythm: regular rhythm Heart sounds: no gallops, no murmurs and no rubs GI: Palpation (GI): Soft to palpation and Other GI palpation findings present ( Nontender) Auscultation: normal bowel sounds Neuro: General: confusion Extrem: General: No clubbing, No cyanosis and Yes other (Right foot with diabetic foot ulcers) Objective Data Labs CBC & Chem 7: 04/15/21 05:33 04/15/21 05:33 Labs: Laboratory Results - last 24 hr 04/14/21 04/14/21 04/14/21 12:16 12:16 13:07 WBC RBC Hgb Hct MCV MCH MCHC RDW Plt Count MPV Immature Gran % (Auto) Neut % (Auto) Lymph % (Auto) Wharton % (Auto) Eos % (Auto) Baso % (Auto) Lymph # (Auto) Wharton # (Auto) Eos # (Auto) Baso # (Auto) Abs Immat Gran (auto) Absolute Neuts (auto) Absolute Nucleated RBC Nucleated RBC % (auto) Neutrophils % (Manual) Band Neutrophils % Lymphocytes % (Manual) Monocytes % (Manual) Eosinophils % (Manual) Abs Neuts (Manual) Lymphocytes # (Manual) Monocytes # (Manual) Eosinophils # (Manual) Dohle Bodies Platelet Estimate Large Platelets Plt Morphology Comment RBC Morphology Microcytosis Target Cells VBG pH VBG pCO2 VBG pO2 VBG HCO3 VBG O2 Saturation VBG Base Excess Sodium 133 L Potassium 4.5 Chloride 95 L Carbon Dioxide 24 Anion Gap 19 BUN 58 H Creatinine 1.80 H Estim Creat Clear Calc 54.7 Estimated GFR 39 POC Glucose > 600 H* Random Glucose 877 H* Lactic Acid F/U @ 2Hr 2.2 H* Lactic Acid F/U @ 4Hr Calcium 9.2 D Phosphorus Magnesium Total Bilirubin AST ALT Alkaline Phosphatase Total Protein Albumin 04/14/21 04/14/21 04/14/21 13:39 14:13 14:39 WBC RBC Hgb Hct MCV MCH MCHC RDW Plt Count MPV Immature Gran % (Auto) Neut % (Auto) Lymph % (Auto) Wharton % (Auto) Eos % (Auto) Baso % (Auto) Lymph # (Auto) Wharton # (Auto) Eos # (Auto) Baso # (Auto) Abs Immat Gran (auto) Absolute Neuts (auto) Absolute Nucleated RBC Nucleated RBC % (auto) Neutrophils % (Manual) Band Neutrophils % Lymphocytes % (Manual) Monocytes % (Manual) Eosinophils % (Manual) Abs Neuts (Manual) Lymphocytes # (Manual) Monocytes # (Manual) Eosinophils # (Manual) Dohle Bodies Platelet Estimate Large Platelets Plt Morphology Comment RBC Morphology Microcytosis Target Cells VBG pH VBG pCO2 VBG pO2 VBG HCO3 VBG O2 Saturation VBG Base Excess Sodium 134 L Potassium 4.6 Chloride 98 Carbon Dioxide 24 Anion Gap 17 BUN 57 H Creatinine 1.70 H Estim Creat Clear Calc 57.9 Estimated GFR 42 POC Glucose > 600 H* Random Glucose 777 H* Lactic Acid F/U @ 2Hr Lactic Acid F/U @ 4Hr 1.7 Calcium 9.2 Phosphorus Magnesium Total Bilirubin AST ALT Alkaline Phosphatase Total Protein Albumin 04/14/21 04/14/21 04/14/21 15:26 15:26 16:30 WBC RBC Hgb Hct MCV MCH MCHC RDW Plt Count MPV Immature Gran % (Auto) Neut % (Auto) Lymph % (Auto) Wharton % (Auto) Eos % (Auto) Baso % (Auto) Lymph # (Auto) Wharton # (Auto) Eos # (Auto) Baso # (Auto) Abs Immat Gran (auto) Absolute Neuts (auto) Absolute Nucleated RBC Nucleated RBC % (auto) Neutrophils % (Manual) Band Neutrophils % Lymphocytes % (Manual) Monocytes % (Manual) Eosinophils % (Manual) Abs Neuts (Manual) Lymphocytes # (Manual) Monocytes # (Manual) Eosinophils # (Manual) Dohle Bodies Platelet Estimate Large Platelets Plt Morphology Comment RBC Morphology Microcytosis Target Cells VBG pH VBG pCO2 VBG pO2 VBG HCO3 VBG O2 Saturation VBG Base Excess Sodium 136 Potassium 4.6 Chloride 99 Carbon Dioxide 27 Anion Gap 15 BUN 55 H Creatinine 1.56 H Estim Creat Clear Calc 63.1 Estimated GFR 46 POC Glucose 600 H* > 600 H* Random Glucose 724 H* Lactic Acid F/U @ 2Hr Lactic Acid F/U @ 4Hr Calcium 9.4 Phosphorus Magnesium Total Bilirubin AST ALT Alkaline Phosphatase Total Protein Albumin 04/14/21 04/14/21 04/14/21 16:32 16:37 17:48 WBC RBC Hgb Hct MCV MCH MCHC RDW Plt Count MPV Immature Gran % (Auto) Neut % (Auto) Lymph % (Auto) Wharton % (Auto) Eos % (Auto) Baso % (Auto) Lymph # (Auto) Wharton # (Auto) Eos # (Auto) Baso # (Auto) Abs Immat Gran (auto) Absolute Neuts (auto) Absolute Nucleated RBC Nucleated RBC % (auto) Neutrophils % (Manual) Band Neutrophils % Lymphocytes % (Manual) Monocytes % (Manual) Eosinophils % (Manual) Abs Neuts (Manual) Lymphocytes # (Manual) Monocytes # (Manual) Eosinophils # (Manual) Dohle Bodies Platelet Estimate Large Platelets Plt Morphology Comment RBC Morphology Microcytosis Target Cells VBG pH VBG pCO2 VBG pO2 VBG HCO3 VBG O2 Saturation VBG Base Excess Sodium 138 Potassium 4.4 Chloride 100 Carbon Dioxide 28 Anion Gap 14 BUN 55 H Creatinine 1.57 H Estim Creat Clear Calc 62.7 Estimated GFR 46 POC Glucose 587 H* 522 H* Random Glucose 675 H* Lactic Acid F/U @ 2Hr Lactic Acid F/U @ 4Hr Calcium 9.4 Phosphorus Magnesium Total Bilirubin < 0.2 AST 25 ALT 17 Alkaline Phosphatase 103 Total Protein 6.5 Albumin 2.5 L 04/14/21 04/14/21 04/14/21 18:07 19:06 19:41 WBC RBC Hgb Hct MCV MCH MCHC RDW Plt Count MPV Immature Gran % (Auto) Neut % (Auto) Lymph % (Auto) Wharton % (Auto) Eos % (Auto) Baso % (Auto) Lymph # (Auto) Wharton # (Auto) Eos # (Auto) Baso # (Auto) Abs Immat Gran (auto) Absolute Neuts (auto) Absolute Nucleated RBC Nucleated RBC % (auto) Neutrophils % (Manual) Band Neutrophils % Lymphocytes % (Manual) Monocytes % (Manual) Eosinophils % (Manual) Abs Neuts (Manual) Lymphocytes # (Manual) Monocytes # (Manual) Eosinophils # (Manual) Dohle Bodies Platelet Estimate Large Platelets Plt Morphology Comment RBC Morphology Microcytosis Target Cells VBG pH VBG pCO2 VBG pO2 VBG HCO3 VBG O2 Saturation VBG Base Excess Sodium Potassium Chloride Carbon Dioxide Anion Gap BUN Creatinine Estim Creat Clear Calc Estimated GFR POC Glucose 582 H* 581 H* 430 H* Random Glucose Lactic Acid F/U @ 2Hr Lactic Acid F/U @ 4Hr Calcium Phosphorus Magnesium Total Bilirubin AST ALT Alkaline Phosphatase Total Protein Albumin 04/14/21 04/14/21 04/14/21 20:34 21:45 22:41 WBC RBC Hgb Hct MCV MCH MCHC RDW Plt Count MPV Immature Gran % (Auto) Neut % (Auto) Lymph % (Auto) Wharton % (Auto) Eos % (Auto) Baso % (Auto) Lymph # (Auto) Wharton # (Auto) Eos # (Auto) Baso # (Auto) Abs Immat Gran (auto) Absolute Neuts (auto) Absolute Nucleated RBC Nucleated RBC % (auto) Neutrophils % (Manual) Band Neutrophils % Lymphocytes % (Manual) Monocytes % (Manual) Eosinophils % (Manual) Abs Neuts (Manual) Lymphocytes # (Manual) Monocytes # (Manual) Eosinophils # (Manual) Dohle Bodies Platelet Estimate Large Platelets Plt Morphology Comment RBC Morphology Microcytosis Target Cells VBG pH VBG pCO2 VBG pO2 VBG HCO3 VBG O2 Saturation VBG Base Excess Sodium Potassium Chloride Carbon Dioxide Anion Gap BUN Creatinine Estim Creat Clear Calc Estimated GFR POC Glucose 379 H* 281 H 311 H Random Glucose Lactic Acid F/U @ 2Hr Lactic Acid F/U @ 4Hr Calcium Phosphorus Magnesium Total Bilirubin AST ALT Alkaline Phosphatase Total Protein Albumin 04/15/21 04/15/21 04/15/21 00:14 01:08 03:06 WBC RBC Hgb Hct MCV MCH MCHC RDW Plt Count MPV Immature Gran % (Auto) Neut % (Auto) Lymph % (Auto) Wharton % (Auto) Eos % (Auto) Baso % (Auto) Lymph # (Auto) Wharton # (Auto) Eos # (Auto) Baso # (Auto) Abs Immat Gran (auto) Absolute Neuts (auto) Absolute Nucleated RBC Nucleated RBC % (auto) Neutrophils % (Manual) Band Neutrophils % Lymphocytes % (Manual) Monocytes % (Manual) Eosinophils % (Manual) Abs Neuts (Manual) Lymphocytes # (Manual) Monocytes # (Manual) Eosinophils # (Manual) Dohle Bodies Platelet Estimate Large Platelets Plt Morphology Comment RBC Morphology Microcytosis Target Cells VBG pH VBG pCO2 VBG pO2 VBG HCO3 VBG O2 Saturation VBG Base Excess Sodium Potassium Chloride Carbon Dioxide Anion Gap BUN Creatinine Estim Creat Clear Calc Estimated GFR POC Glucose 241 H 225 H 216 H Random Glucose Lactic Acid F/U @ 2Hr Lactic Acid F/U @ 4Hr Calcium Phosphorus Magnesium Total Bilirubin AST ALT Alkaline Phosphatase Total Protein Albumin 04/15/21 04/15/21 04/15/21 03:58 05:33 05:33 WBC 15.6 H RBC 3.98 L Hgb 11.8 L Hct 34.6 L MCV 86.9 MCH 29.6 MCHC 34.1 RDW 12.9 Plt Count 299 MPV 10.8 Immature Gran % (Auto) Cancelled Neut % (Auto) Cancelled Lymph % (Auto) Cancelled Wharton % (Auto) Cancelled Eos % (Auto) Cancelled Baso % (Auto) Cancelled Lymph # (Auto) Cancelled Wharton # (Auto) Cancelled Eos # (Auto) Cancelled Baso # (Auto) Cancelled Abs Immat Gran (auto) Cancelled Absolute Neuts (auto) Cancelled Absolute Nucleated RBC 0.000 Nucleated RBC % (auto) 0.0 Neutrophils % (Manual) 69 Band Neutrophils % 17 H Lymphocytes % (Manual) 5 L Monocytes % (Manual) 8 Eosinophils % (Manual) 1 Abs Neuts (Manual) 13.4 H Lymphocytes # (Manual) 0.8 L Monocytes # (Manual) 1.2 Eosinophils # (Manual) 0.2 Dohle Bodies PRESENT Platelet Estimate NORMAL Large Platelets PRESENT Plt Morphology Comment NORMAL RBC Morphology NOTED Microcytosis 1+ (5-14) Target Cells 1+ (5-14) VBG pH VBG pCO2 VBG pO2 VBG HCO3 VBG O2 Saturation VBG Base Excess Sodium 148 H Potassium 3.7 Chloride 110 H Carbon Dioxide 30 H Anion Gap 12 BUN 42 H Creatinine 1.05 Estim Creat Clear Calc 93.8 Estimated GFR > 60 POC Glucose 178 H Random Glucose 178 H D Lactic Acid F/U @ 2Hr Lactic Acid F/U @ 4Hr Calcium 9.5 Phosphorus 2.0 L Magnesium 2.0 Total Bilirubin AST ALT Alkaline Phosphatase Total Protein Albumin 2.2 L 04/15/21 04/15/21 04/15/21 05:37 06:19 07:42 WBC RBC Hgb Hct MCV MCH MCHC RDW Plt Count MPV Immature Gran % (Auto) Neut % (Auto) Lymph % (Auto) Wharton % (Auto) Eos % (Auto) Baso % (Auto) Lymph # (Auto) Wharton # (Auto) Eos # (Auto) Baso # (Auto) Abs Immat Gran (auto) Absolute Neuts (auto) Absolute Nucleated RBC Nucleated RBC % (auto) Neutrophils % (Manual) Band Neutrophils % Lymphocytes % (Manual) Monocytes % (Manual) Eosinophils % (Manual) Abs Neuts (Manual) Lymphocytes # (Manual) Monocytes # (Manual) Eosinophils # (Manual) Dohle Bodies Platelet Estimate Large Platelets Plt Morphology Comment RBC Morphology Microcytosis Target Cells VBG pH 7.51 H VBG pCO2 39 VBG pO2 69 VBG HCO3 32 H VBG O2 Saturation 93.0 VBG Base Excess 8.6 Sodium Potassium Chloride Carbon Dioxide Anion Gap BUN Creatinine Estim Creat Clear Calc Estimated GFR POC Glucose 160 H 164 H Random Glucose Lactic Acid F/U @ 2Hr Lactic Acid F/U @ 4Hr Calcium Phosphorus Magnesium Total Bilirubin AST ALT Alkaline Phosphatase Total Protein Albumin 04/15/21 10:35 WBC RBC Hgb Hct MCV MCH MCHC RDW Plt Count MPV Immature Gran % (Auto) Neut % (Auto) Lymph % (Auto) Wharton % (Auto) Eos % (Auto) Baso % (Auto) Lymph # (Auto) Wharton # (Auto) Eos # (Auto) Baso # (Auto) Abs Immat Gran (auto) Absolute Neuts (auto) Absolute Nucleated RBC Nucleated RBC % (auto) Neutrophils % (Manual) Band Neutrophils % Lymphocytes % (Manual) Monocytes % (Manual) Eosinophils % (Manual) Abs Neuts (Manual) Lymphocytes # (Manual) Monocytes # (Manual) Eosinophils # (Manual) Dohle Bodies Platelet Estimate Large Platelets Plt Morphology Comment RBC Morphology Microcytosis Target Cells VBG pH VBG pCO2 VBG pO2 VBG HCO3 VBG O2 Saturation VBG Base Excess Sodium Potassium Chloride Carbon Dioxide Anion Gap BUN Creatinine Estim Creat Clear Calc Estimated GFR POC Glucose 181 H Random Glucose Lactic Acid F/U @ 2Hr Lactic Acid F/U @ 4Hr Calcium Phosphorus Magnesium Total Bilirubin AST ALT Alkaline Phosphatase Total Protein Albumin Microbiology Microbiology Results: Microbiology 04/14/21 09:30 Blood - Venous Blood Culture - Preliminary No growth after 24 hours. 04/14/21 09:30 Blood - Venous Blood Culture - Preliminary No growth after 24 hours. Progress Note: A&P Assessment and plan (1) Hyperosmolar hyperglycemic state (HHS): Status: Acute (2) IRAIDA (acute kidney injury): Status: Acute (3) Sepsis: Status: Acute (4) Diabetic foot infection: Status: Acute (5) Acute metabolic encephalopathy: Status: Acute Assessment and Plan: Assessment: 56-year-old gentleman noncompliant with medication regimen for diabetes mellitus hypertension admitted with diabetic hyperosmolar/hyperglycemic state and sepsis with diabetic foot ulcer Plan: Neuro: CT head with no acute intracranial findings. Underlying encephalopathy either metabolic or septic, somewhat improved, however still confused. Cardiac: No acute issues. Pulmonary: No acute issues. Renal: Acute renal failure secondary to diabetic hyperosmolar state, improving. Non oliguric. Continue to monitor renal indices and urine output. Endo: Diabetic hyperglycemic/hyperosmolar state requiring insulin drip, now titrated off. Continue with subcu insulin. GI: No acute issues. ID: Right diabetic ulcer, possible osteomyelitis. General surgery evaluation requested. Empirically covered with broad-spectrum antibiotics. Heme/Onc: No acute issues. Psych: No acute issues. Miscellaneous: No acute issues. Prophylaxis: Heparin Diet: Diabetic Quality Stroke Does the patient have a stroke diagnosis?: No VTE Prior VTE?: No VTE Risk Level:: Medical - moderate - high VTE Device Contraindication: Treatment Not Indicated VTE Drug Contraindication: N/A - Med Ordered
[2021-04-15 16:09] LABS: Glucose, Whole Blood 304 mg/dL (60-115)
[2021-04-15] MEDS: Insulin Lispro 100 UNIT/ML 3 ML VIAL SUBCUT ×2 (16:35→20:17)
[2021-04-15] MEDS: dilTIAZem HCL 50 MG/10 ML VIAL 10 MG IVPUSH ×2 (18:39→20:57)
--- NOTE | 2021-04-15 18:51 | PM.EVENT ---
Event Note Date of Service: 04/15/21 Event Note: HR up to 200s, patient seems assymptomatic and SBP 148/65, rythm on monitor iregular and consistent with AFIB. He is very agresive, shouting obesinities and would not allow anyone near, shoutng you get out . Given IV cardizem 10 with reduction of heart rate to to now just below 120 and rythm showing sinus tach at 118. Will try IM hydroxyzine as needed for agitation
--- NOTE | 2021-04-15 19:45 | PC.NURSE ---
1815 Patients HR up to the 180s occasionally climbing to 200s. Rhythm unclear due to increased HR. Upon assessment, patient very agitated and threatening staff and yelling get out of my room . BP 148/65.. Mlapah called to bedside. Unable to obtain ekg d/t patients irritation. 10mg IVP Cardizem given. HR starting to trend down. HR then down to 130s/ HR visibly AFib. Shortly after hr trended down to 120s and patient converted to Sinus Rhythm. Oncoming nurse made aware.
[2021-04-15 20:20] LABS: Glucose, Whole Blood 277 mg/dL (60-115)
[2021-04-15 21:21] LABS: Anion Gap 16 (12-20); Blood Urea Nitrogen 32 mg/dL (9-16); Calcium 9.4 mg/dL (8.4-10.2); Carbon Dioxide 29 mmol/L (22-29); Chloride 113 mmol/L (96-108); Creatinine Clr Calc Pharmacy 91.9; Estimated Glomerular Filt Rate 60; Glucose Random 307 mg/dL (60-115); Sodium 154 mmol/L (135-145)
[2021-04-15 21:25] LABS: Vancomycin Trough 7.6 mcg/mL (10.0-20.0)
--- NOTE | 2021-04-15 22:02 | HE.PHANOTE ---
Increase dose to 1250 mg q12h, predicted AUC is 527, trough 16.6, next trough 04/17 @0800
[2021-04-15] MEDS: vancomycin HCL 1,250 MG in 0.9 % Sodium Chloride 250 ML 166.67 MG IV (22:19)
[2021-04-15] MEDS: Dextrose 5 % 1,000 ML 100 ML IVCONT (22:20)
--- NOTE | 2021-04-16 | MHC.PIE ---
P.AFIB RVR I.PT IN AFIB RVR,HR 160-170.SOME AGITATION WITH CARE. UPDATED.MED WITH ZYPREXA 5MG IM .ABLE TO GET BP AFTER ZYPREXA GIVEN.BP 168/96,REMAINED AFIB RVR.DR HERNADEZ UPDATED.ORDER TO START CAEDIZEM DRIP.DRIP STARTED AT 10MG/HR,,COVERTED TO STACH,HR 110'S.TRIED TO WEAN DOWN CARDIZEM DRIP TO 5MG.HR THEN WENT BACK TO AFIB RVR,HR 170' WITHIN 5 MINUTES.CARDIZEM DRIP RETURNED TO 10MG/HR,CONVERTED AGAIN TO SINUS TACH,CARDIZEM DRIP REMAINED ON AT 10MG/HR. E.CONT TO MONITOR.
[2021-04-16] MEDS: OLANZapine 10 MG VIAL 5 MG IM (00:26)
[2021-04-16 00:32] VITALS: BP 168/96; PULSE 115; RESP 20; TEMP 36.7; O2SAT 91
[2021-04-16] MEDS: dilTIAZem HCL 125 MG in 0.9 % Sodium Chloride 100 ML 10 MG IVCONT (00:53)
[2021-04-16] MEDS: Albumin Human 25 % 100 ML IV (03:04)
[2021-04-16] MEDS: Heparin Sodium,Porcine 5,000 UNIT/ML VIAL 5000 UNIT SUBCUT ×3 (03:06→17:11)
[2021-04-16] MEDS: Piperacillin Sodium/Tazobactam 3.375 GM in 0.9 % Sodium Chloride 50 ML IV ×4 (04:25→22:05)
[2021-04-16 07:59] LABS: Glucose, Whole Blood 536 mg/dL (60-115)
[2021-04-16 08:00] VITALS: BP 176/84; PULSE 115; RESP 20; TEMP 36.8; O2SAT 96
[2021-04-16] MEDS: Insulin Glargine,Hum.rec.anlog 100 UNIT/ML 10 ML VIAL 40 UNIT SUBCUT (08:19)
[2021-04-16] MEDS: Insulin Lispro 100 UNIT/ML 3 ML VIAL SUBCUT ×9 (08:20→23:52)
[2021-04-16] MEDS: Insulin Lispro 100 UNIT/ML 3 ML VIAL 10 UNIT SUBCUT (08:20)
[2021-04-16 10:09] LABS: Glucose, Whole Blood 367 mg/dL (60-115)
--- NOTE | 2021-04-16 10:11 | HE.PHANOTE ---
Vancomycin Addendum Patient SCr increase to 1.25 last night at 2052. Order SCr for the AM, but was never drawn. Due to the increase in SCr the predicted AUC with vancomycin 1250 mg Q12H would be >600. Will decrease do to Vancomycin 1000 mg Q12H with an expected AUC of 487 and trough of 15.8. Deedee Cano, FrancoiseD
[2021-04-16] MEDS: lamoTRIgine 25 MG TABLET 50 MG PO ×2 (10:29→20:05)
[2021-04-16] MEDS: vancomycin HCL 1,000 MG in 0.9 % Sodium Chloride 250 ML 270 MG IV ×2 (10:31→22:50)
[2021-04-16] MEDS: Dextrose 5 % 1,000 ML 100 ML IVCONT ×2 (10:36→23:54)
--- NOTE | 2021-04-16 10:53 | HO.PM.IMPN ---
Subjective Subjective Date of Service: 04/16/21 Interval History: cc: ams interval history: still agitated, confused Review of Systems Review of Systems: Yes Unobtainable due to mental condition Physical Exam Vital Signs: Vital Signs: Last Vital Signs Temp 98.3 F 04/16/21 08:00 Pulse 115 H 04/16/21 08:00 Resp 20 04/16/21 08:00 BP 176/84 H 04/16/21 08:00 Pulse Ox 96 04/16/21 08:00 BMI result Body Mass Index 32.9 General: AO X 1, restless Resp: diminsihed bilateral, no accessory muscles used CVS: S1,S2,RRR GI: soft, non tender, non distended Neuro: motor grossly intact, alert Psych: confused, impaired insight Objective Data Active Medications Acetaminophen (Acetaminophen 325 Mg Tablet) 650 mg PO Q6H PRN PRN Reason: Fever >101 Last Admin: 04/15/21 00:20 Dose: 650 mg Documented by: MALATHI Heparin Sodium (Porcine) (Heparin Sodium,Porcine 5,000 Unit/Ml Vial) 5,000 unit SUBCUT Q8H [facility] Last Admin: 04/16/21 10:29 Dose: 5,000 unit Documented by: ELIN Hydroxyzine HCl (Hydroxyzine Hcl 50 Mg/Ml Vial) 25 mg IM Q6H PRN PRN Reason: agitation Piperacillin Sod/Tazobactam (Sod 3.375 gm/ Sodium Chloride) 50 mls @ 100 mls/hr IV Q6H [facility] Last Infusion: 04/16/21 05:02 Dose: 0 mls/hr Documented by: UMANG Dextrose (D5w) 1,000 mls @ 100 mls/hr IVCONT .Q10H [facility] Last Admin: 04/16/21 10:36 Dose: 100 mls/hr Documented by: ELIN Diltiazem HCl 125 mg/ Sodium (Chloride) 125 mls @ 0 mls/hr IVCONT .Q0M [facility]; Protocol Last Titration: 04/16/21 03:44 Dose: 10 mg/hr, 10 mls/hr Documented by: UMANG Vancomycin HCl 1,000 mg/ (Sodium Chloride) 270 mls @ 270 mls/hr IV Q12H [facility] Last Admin: 04/16/21 10:31 Dose: 270 mls/hr Documented by: ELIN Insulin Glargine (Insulin Glargine,Hum.Rec.Anlog 100 Unit/Ml 10 Ml Vial) 40 unit SUBCUT DAILY [facility] Last Admin: 04/16/21 08:19 Dose: 40 unit Documented by: ELIN Insulin Human Lispro (Insulin Lispro 100 Unit/Ml 3 Ml Vial) 0 unit SUBCUT Q2H [facility]; Protocol Last Admin: 04/16/21 10:29 Dose: 10 unit Documented by: ELIN Lamotrigine (Lamotrigine 25 Mg Tablet) 50 mg PO BID [facility] Last Admin: 04/16/21 10:29 Dose: 50 mg Documented by: ELIN Ondansetron HCl (Ondansetron Hcl 4 Mg/2 Ml Vial) 4 mg IVPUSH Q8H PRN PRN Reason: Nausea Pharmacy Consult (Consult Rx Perform Med Rec) 1 each MISCELLANE ONCE PRN PRN Reason: Consult order Pharmacy Consult (Consult Rx Vancomycin Dosing) 1 each MISCELLANE DAILY PRN PRN Reason: Consult order Labs CBC & Chem 7: 04/15/21 05:33 04/15/21 20:53 Labs: Laboratory Results - last 24 hr 04/15/21 04/15/21 04/15/21 15:56 20:15 20:53 Anion Gap Estim Creat Clear Calc Estimated GFR POC Glucose 304 H 277 H Random Glucose Calcium Vancomycin Trough 7.6 L 04/15/21 04/16/21 04/16/21 20:53 07:42 10:05 Anion Gap 16 Estim Creat Clear Calc 91.9 Estimated GFR 60 POC Glucose 536 H* 367 H* Random Glucose 307 H D Calcium 9.4 Vancomycin Trough Microbiology Microbiology Results: Microbiology 04/14/21 09:30 Blood Culture - Preliminary Blood - Venous No growth after 24 hours. 04/14/21 09:30 Blood Culture - Preliminary Blood - Venous No growth after 24 hours. Assessment and Plan (1) Severe sepsis: Status: Acute Assessment and Plan: 56M presented with weakness and fall, found to have severe sepsis from DFU and hyperosmolar hyperglycemia with IRAIDA and metabolic ecncephalopathy. was treated with hydration, antibiotics and insulin, downgraded to medical floor 04/15/21. severe sepsis due to rigth DFU vanc, zosyn, follow up surgery cultures negative to date metabolic encephalopathy due to sepsis, HHS, hypernatremia mood stabilizers to prevent self harm hhs insulin, monitor hypernatremia d5w, monitor iraida resolved htn non compliant, will start amlodipine Quality Stroke Does the patient have a stroke diagnosis?: No VTE Prior VTE?: No VTE Risk Level:: Medical - moderate - high VTE Device Contraindication: Treatment Not Indicated VTE Drug Contraindication: N/A - Med Ordered
[2021-04-16 11:40] VITALS: BP 136/85; PULSE 114; RESP 16; TEMP 37.1; O2SAT 94
[2021-04-16 11:46] LABS: Glucose, Whole Blood 316 mg/dL (60-115)
[2021-04-16 14:31] LABS: Glucose, Whole Blood 302 mg/dL (60-115)
[2021-04-16 15:03] VITALS: BP 169/77; PULSE 109; RESP 20; TEMP 36.8; O2SAT 92
--- NOTE | 2021-04-16 15:26 | P.CONGS_ITS ---
History of Present Illness Consult details Consult date: 04/15/21 Requesting physician: Tino Don Narrative: pt came to the ER with diabetic foot wound and confused and in DKA - tested COvid positive but not resp sx. To ICU for resusc and now doing better. Wound care nurse saw pt and did debridement and dressing recommendations nursing saying wounds draining and looking a bit better. foot xrays done at admission did not show osteo. pt doing better today after resuscitation in icu and now on floor [facility] Social History Social History Household Members: Family Housing: Unknown / Unable to assess Unable to assess alcohol history related to: Refusing to respond Alcohol intake: current Alcohol intake frequency: a few times a week Patient Tobacco Use Status: Current everyday Tobacco user Smoked in Last 30 Days: Yes Patient Interested in Nicotine Replacement: No Patient Given Instructions on How to Stop Smoking: No Second Hand Smoke Exposure: No Use of substances other than those prescribed or required for medical reasons: Unknown Currently Displaying Signs/Symptoms of Drug Intoxication Withdrawal: No Advance Directives: No Advance Directives Information Provided: No Do you have thoughts of harming others: None Do you have a plan to hurt others: No Plan Recently lost weight without trying: No Eating poorly because of decreased appetite: No Nutrition Risks: No Nutritional Risk and Diabetes new onset/Uncontrolled Meds Allergies Allergy/AdvReac Type Severity Reaction Status Date / Time No Known Allergies Allergy Unverified 12/10/19 14:45 [No Known Allergies*] Active Medications: Current Medications Acetaminophen (Acetaminophen 325 Mg Tablet) 650 mg PO Q6H PRN PRN Reason: Fever >101 Last Admin: 04/15/21 00:20 Dose: 650 mg Documented by: Amlodipine Besylate (Amlodipine Besylate 10 Mg Tablet) 10 mg PO DAILY [facility]; Protocol Heparin Sodium (Porcine) (Heparin Sodium,Porcine 5,000 Unit/Ml Vial) 5,000 unit SUBCUT Q8H [facility] Last Admin: 04/16/21 10:29 Dose: 5,000 unit Documented by: Hydroxyzine HCl (Hydroxyzine Hcl 50 Mg/Ml Vial) 25 mg IM Q6H PRN PRN Reason: agitation Piperacillin Sod/Tazobactam (Sod 3.375 gm/ Sodium Chloride) 50 mls @ 100 mls/hr IV Q6H [facility] Last Infusion: 04/16/21 12:30 Dose: Infused Documented by: Dextrose (D5w) 1,000 mls @ 100 mls/hr IVCONT .Q10H [facility] Last Admin: 04/16/21 10:36 Dose: 100 mls/hr Documented by: Vancomycin HCl 1,000 mg/ (Sodium Chloride) 270 mls @ 270 mls/hr IV Q12H [facility] Last Infusion: 04/16/21 12:01 Dose: Infused Documented by: Insulin Glargine (Insulin Glargine,Hum.Rec.Anlog 100 Unit/Ml 10 Ml Vial) 40 unit SUBCUT DAILY [facility] Last Admin: 04/16/21 08:19 Dose: 40 unit Documented by: Insulin Human Lispro (Insulin Lispro 100 Unit/Ml 3 Ml Vial) 0 unit SUBCUT Q2H [facility]; Protocol Last Admin: 04/16/21 14:56 Dose: 8 unit Documented by: Lamotrigine (Lamotrigine 25 Mg Tablet) 50 mg PO BID [facility] Last Admin: 04/16/21 10:29 Dose: 50 mg Documented by: Ondansetron HCl (Ondansetron Hcl 4 Mg/2 Ml Vial) 4 mg IVPUSH Q8H PRN PRN Reason: Nausea Pharmacy Consult (Consult Rx Perform Med Rec) 1 each MISCELLANE ONCE PRN PRN Reason: Consult order Pharmacy Consult (Consult Rx Vancomycin Dosing) 1 each MISCELLANE DAILY PRN PRN Reason: Consult order Home Medications Medication Instructions Recorded Confirmed Last Taken Type No Known Home Meds 04/14/21 04/14/21 Unknown History Physical Exam Vital Signs: Vital Signs: Last Vital Signs Temp 98.3 F 04/16/21 15:03 Pulse 109 H 04/16/21 15:03 Resp 20 04/16/21 15:03 BP 169/77 H 04/16/21 15:03 Pulse Ox 92 04/16/21 15:03 BMI result Body Mass Index 32.9 Skin: Other: right foot with diabetic foot wounds - right plantar and lateral dorsal area with combo of stable dry gangrene and other tissue which doesnt look so bad vascular status seems adequate draining clear fluid doesnt appear to have any undrained collections Results Labs Result diagrams: 04/15/21 05:33 04/15/21 20:53 Labs: Abnormal lab results 04/15/21 04/15/21 04/15/21 Range/Units 15:56 20:15 20:53 Sodium (135-145) mmol/L Chloride (96-108) mmol/L BUN (9-16) mg/dL POC Glucose 304 H 277 H (60-115) mg/dL Random Glucose (60-115) mg/dL Vancomycin Trough 7.6 L (10.0-20.0) mcg/mL 04/15/21 04/16/21 04/16/21 Range/Units 20:53 07:42 10:05 Sodium 154 H (135-145) mmol/L Chloride 113 H (96-108) mmol/L BUN 32 H (9-16) mg/dL POC Glucose 536 H* 367 H* (60-115) mg/dL Random Glucose 307 H D (60-115) mg/dL Vancomycin Trough (10.0-20.0) mcg/mL 04/16/21 04/16/21 Range/Units 11:38 14:24 Sodium (135-145) mmol/L Chloride (96-108) mmol/L BUN (9-16) mg/dL POC Glucose 316 H 302 H (60-115) mg/dL Random Glucose (60-115) mg/dL Vancomycin Trough (10.0-20.0) mcg/mL BMP 04/15/21 20:53 Sodium 154 H Potassium 4.0 Chloride 113 H Carbon Dioxide 29 BUN 32 H Creatinine 1.25 Calcium 9.4 Urine 04/14/21 Range/Units 10:25 Urine Color STRAW Urine Appearance HAZY Urine pH 5.5 (5.0-8.0) Ur Specific [place] <= 1.005 (1.005-1.025) Urine Protein TRACE (NEG-TRACE) MG/DL Urine Glucose (UA) >=1000 H (NEG) MG/DL All other labs normal. Assessment and Plan (1) Diabetic foot infection: Status: Acute 56 year old male admitted with sepsis from diabetic foot wounds - in icu now better but then today with some runs of rapid afib. also came ack covid positive but not having much resp sx.- foot xray no osteo no exposed bone but into subcut fat and muscle - at this point get better control of sugars and afib cont with dressings as above - triad may need further bedside debridement cont with iv antibx when dc home can fu in wound care clinic will work with wound care nurse for treatment Procedures Date of Service Date of Service: 04/16/21
[2021-04-16 16:14] LABS: Glucose, Whole Blood 313 mg/dL (60-115)
[2021-04-16 18:19] LABS: Glucose, Whole Blood 309 mg/dL (60-115)
[2021-04-16 19:04] VITALS: BP 171/80; PULSE 100; RESP 14; TEMP 37.1; O2SAT 94
[2021-04-16 19:45] LABS: Creatinine Clr Calc Pharmacy 99.1; Estimated Glomerular Filt Rate > 60
[2021-04-16 20:16] LABS: Glucose, Whole Blood 275 mg/dL (60-115)
[2021-04-16 21:43] LABS: Glucose, Whole Blood 243 mg/dL (60-115)
[2021-04-16 23:53] LABS: Glucose, Whole Blood 216 mg/dL (60-115)
[2021-04-17] VITALS (7 sets, daily range): BP systolic 144–180; BP diastolic 75–91; PULSE 90–100; RESP 16–20; TEMP 36.2–37.4; O2SAT 93–96
--- NOTE | 2021-04-17 | ECG_ITS ---
Test Reason : afib Blood Pressure : / mmHG Vent. Rate : 161 BPM Atrial Rate : 000 BPM P-R Int : 000 ms QRS Dur : 086 ms QT Int : 308 ms P-R-T Axes : 000 055 -87 degrees QTc Int : 504 ms Atrial fibrillation with rapid ventricular response Nonspecific ST and T wave abnormality Abnormal ECG When compared with ECG of 14-APR-2021 08:45, Atrial fibrillation has replaced Sinus rhythm Vent. rate has increased BY [address] now depressed in Anterior leads T wave inversion more evident in Inferior leads Nonspecific T wave abnormality now evident in Lateral leads Referred By: Duane Brewer Electronically Signed By:JORDY BELL MD
--- NOTE | 2021-04-17 01:29 | PM.EVENT ---
Event Note Date of Service: 04/17/21 Event Note: AFib with RVR: Patient heart rate going up to 160s. Patient started on diltiazem drip.
[2021-04-17] MEDS: dilTIAZem HCL 125 MG in 0.9 % Sodium Chloride 100 ML IVCONT (01:43)
[2021-04-17] MEDS: Heparin Sodium,Porcine 5,000 UNIT/ML VIAL 5000 UNIT SUBCUT ×3 (01:48→17:31)
[2021-04-17 02:17] LABS: Glucose, Whole Blood 253 mg/dL (60-115)
[2021-04-17] MEDS: Insulin Lispro 100 UNIT/ML 3 ML VIAL SUBCUT ×7 (02:17→22:11)
--- NOTE | 2021-04-17 02:49 | PC.NURSE ---
Cardizem drip started a round 01:45 because of increased heart rate ranging between 160s-180s. Overnight hospitalist was notified and Cardizem was started at 5mg/hr and titrated up ending at 15mg/hr. Around 2:43 patient heart rate reduced and stayed in the 90s. Overnight hospitalist notified. Currently titrating down as tolerated.
[2021-04-17 03:11] LABS: Glucose, Whole Blood 250 mg/dL (60-115)
[2021-04-17] MEDS: Piperacillin Sodium/Tazobactam 3.375 GM in 0.9 % Sodium Chloride 50 ML IV ×4 (05:05→22:19)
[2021-04-17 06:02] LABS: Glucose, Whole Blood 256 mg/dL (60-115)
[2021-04-17 07:25] LABS: Glucose, Whole Blood 262 mg/dL (60-115)
[2021-04-17 08:07] LABS: Hematocrit 34.6 % (42.0-52.0); Hemoglobin 11.3 g/dl (14.0-18.0); Mean Corpuscular HGB Conc 32.7 g/dl (31.0-36.0); Mean Corpuscular Hemoglobin 29.8 pg (27.0-33.0); Mean Corpuscular Volume 91.3 fL (80.0-98.0); Mean Platelet Volume 10.9 fL (9.4-12.4); Platelet Count 211 X10*3/uL (160-400); Red Blood Count 3.79 X10*6/uL (4.60-5.80); White Blood Count 14.8 X10*3/uL (4.8-10.8)
[2021-04-17 08:34] LABS: Vancomycin Trough 9.9 mcg/mL (10.0-20.0)
[2021-04-17 08:36] LABS: Anion Gap 10 (12-20); Blood Urea Nitrogen 23 mg/dL (9-16); Carbon Dioxide 32 mmol/L (22-29); Chloride 103 mmol/L (96-108); Creatinine Clr Calc Pharmacy 127.7; Estimated Glomerular Filt Rate > 60; Glucose Fasting 273 mg/dL (60-99); Potassium 3.3 mmol/L (3.3-5.1); Sodium 142 mmol/L (135-145)
[2021-04-17] MEDS: amLODIPine Besylate 10 MG TABLET PO (08:40)
[2021-04-17] MEDS: lamoTRIgine 25 MG TABLET 50 MG PO ×2 (08:40→22:12)
[2021-04-17] MEDS: Insulin Glargine,Hum.rec.anlog 100 UNIT/ML 10 ML VIAL 40 UNIT SUBCUT (08:43)
--- NOTE | 2021-04-17 08:47 | HE.PHANOTE ---
VANCO DOSE CHANGES BASED ON TROUGH OF 9.9 DOSE CHANGED TO 1250 Q 12. NEXT TROUGH AT 04/18 @ 0700
[2021-04-17] MEDS: vancomycin HCL 1,250 MG in 0.9 % Sodium Chloride 250 ML 166.67 MG IV ×2 (10:34→23:23)
[2021-04-17] MEDS: Dextrose 5 % 1,000 ML 100 ML IVCONT (10:38)
--- NOTE | 2021-04-17 11:18 | P.PNIM_ITS ---
Subjective Subjective Date of Service: 04/17/21 Interval History: cc: ams interval history: much more calm today, no complaints Cardiovascular Cardiovascular: Reports no additional cardiovascular complaints Respiratory Respiratory: Reports no additional respiratory complaints Physical Exam Vital Signs: Vital Signs: Last Vital Signs Temp 98.8 F 04/17/21 07:30 Pulse 93 04/17/21 07:30 Resp 18 04/17/21 07:30 BP 162/87 H 04/17/21 07:30 Pulse Ox 95 04/17/21 07:30 BMI result Body Mass Index 32.9 General: AO X 1, much more calm Resp:? diminsihed bilateral, no accessory muscles used CVS: S1,S2,RRR GI: soft, non tender, non distended Neuro:? motor grossly intact, alert Psych: confused, impaired insight? Objective Data Active Medications Acetaminophen (Acetaminophen 325 Mg Tablet) 650 mg PO Q6H PRN PRN Reason: Fever >101 Last Admin: 04/15/21 00:20 Dose: 650 mg Documented by: MALATHI Amlodipine Besylate (Amlodipine Besylate 10 Mg Tablet) 10 mg PO DAILY [facility]; Protocol Last Admin: 04/17/21 08:40 Dose: 10 mg Documented by: REGINE Heparin Sodium (Porcine) (Heparin Sodium,Porcine 5,000 Unit/Ml Vial) 5,000 unit SUBCUT Q8H [facility] Last Admin: 04/17/21 10:30 Dose: 5,000 unit Documented by: REGINE Hydroxyzine HCl (Hydroxyzine Hcl 50 Mg/Ml Vial) 25 mg IM Q6H PRN PRN Reason: agitation Piperacillin Sod/Tazobactam (Sod 3.375 gm/ Sodium Chloride) 50 mls @ 100 mls/hr IV Q6H [facility] Last Infusion: 04/17/21 06:16 Dose: 0 mls/hr Documented by: RAMESH Dextrose (D5w) 1,000 mls @ 100 mls/hr IVCONT .Q10H [facility] Last Admin: 04/17/21 10:38 Dose: 100 mls/hr Documented by: REGINE Vancomycin HCl 1,250 mg/ (Sodium Chloride) 250 mls @ 166.667 mls/hr IV Q12H [facility] Last Admin: 04/17/21 10:34 Dose: 166.67 mls/hr Documented by: REGINE Insulin Glargine (Insulin Glargine,Hum.Rec.Anlog 100 Unit/Ml 10 Ml Vial) 40 unit SUBCUT DAILY [facility] Last Admin: 04/17/21 08:43 Dose: 40 unit Documented by: REGINE Insulin Human Lispro (Insulin Lispro 100 Unit/Ml 3 Ml Vial) 0 unit SUBCUT Q4H [facility]; Protocol Last Admin: 04/17/21 08:41 Dose: 6 unit Documented by: REGINE Lamotrigine (Lamotrigine 25 Mg Tablet) 50 mg PO BID [facility] Last Admin: 04/17/21 08:40 Dose: 50 mg Documented by: REGINE Metoprolol Tartrate (Metoprolol Tartrate 50 Mg Tablet) 50 mg PO BID [facility]; Protocol Ondansetron HCl (Ondansetron Hcl 4 Mg/2 Ml Vial) 4 mg IVPUSH Q8H PRN PRN Reason: Nausea Pharmacy Consult (Consult Rx Perform Med Rec) 1 each MISCELLANE ONCE PRN PRN Reason: Consult order Pharmacy Consult (Consult Rx Vancomycin Dosing) 1 each MISCELLANE DAILY PRN PRN Reason: Consult order Labs CBC & Chem 7: 04/17/21 07:53 04/17/21 07:53 Labs: Laboratory Results - last 24 hr 04/16/21 04/16/21 04/16/21 11:38 14:24 16:03 MCV MCH MCHC RDW Plt Count MPV Absolute Nucleated RBC Nucleated RBC % (auto) Anion Gap Estim Creat Clear Calc Estimated GFR POC Glucose 316 H 302 H 313 H Fasting Glucose Calcium Vancomycin Trough 04/16/21 04/16/21 04/16/21 18:15 19:20 19:55 MCV MCH MCHC RDW Plt Count MPV Absolute Nucleated RBC Nucleated RBC % (auto) Anion Gap Estim Creat Clear Calc 99.1 Estimated GFR > 60 POC Glucose 309 H 275 H Fasting Glucose Calcium Vancomycin Trough 04/16/21 04/16/21 04/17/21 21:37 23:49 02:11 MCV MCH MCHC RDW Plt Count MPV Absolute Nucleated RBC Nucleated RBC % (auto) Anion Gap Estim Creat Clear Calc Estimated GFR POC Glucose 243 H 216 H 253 H Fasting Glucose Calcium Vancomycin Trough 04/17/21 04/17/21 04/17/21 03:06 05:58 07:10 MCV MCH MCHC RDW Plt Count MPV Absolute Nucleated RBC Nucleated RBC % (auto) Anion Gap Estim Creat Clear Calc Estimated GFR POC Glucose 250 H 256 H 262 H Fasting Glucose Calcium Vancomycin Trough 04/17/21 04/17/21 04/17/21 07:53 07:53 07:53 MCV 91.3 MCH 29.8 MCHC 32.7 RDW 14.0 Plt Count 211 D MPV 10.9 Absolute Nucleated RBC 0.000 Nucleated RBC % (auto) 0.0 Anion Gap 10 L Estim Creat Clear Calc 127.7 Estimated GFR > 60 POC Glucose Fasting Glucose 273 H Calcium 8.0 L D Vancomycin Trough 9.9 L Microbiology Microbiology Results: Microbiology 04/14/21 09:30 Blood Culture - Preliminary Blood - Venous No growth after 48 hours. 04/14/21 09:30 Blood Culture - Preliminary Blood - Venous No growth after 48 hours. Assessment and Plan (1) Severe sepsis: Status: Acute Assessment and Plan: 56M presented with weakness and fall, found to have severe sepsis from DFU and hyperosmolar hyperglycemia with IRAIDA and metabolic ecncephalopathy. was treated with hydration, antibiotics and insulin, downgraded to medical floor 04/15/21. severe sepsis due to right DFU vanc, zosyn cultures negative to date surgery following, may need debridement paroxysmal atrial fibrillation with rvr lopressor, cardio eval, echo currently in sinus metabolic encephalopathy due to sepsis, HHS, hypernatremia mood stabilizers significantly improved, dc restraints hhs insulin, monitor hypernatremia resolved, will change to isotonic fluids iraida resolved htn lopressor, amlodipine Quality Stroke Does the patient have a stroke diagnosis?: No VTE Prior VTE?: No VTE Risk Level:: Medical - moderate - high VTE Device Contraindication: Treatment Not Indicated VTE Drug Contraindication: N/A - Med Ordered
[2021-04-17 11:34] LABS: Glucose, Whole Blood 242 mg/dL (60-115)
[2021-04-17] MEDS: Lactated Ringers 1,000 ML 100 ML IVCONT ×2 (11:41→22:13)
[2021-04-17] MEDS: Potassium Chloride ER 20 MEQ TAB.ER.PRT 40 MEQ PO (11:45)
[2021-04-17] MEDS: Metoprolol Tartrate 50 MG TABLET PO ×2 (12:29→22:12)
[2021-04-17 16:24] LABS: Glucose, Whole Blood 209 mg/dL (60-115)
[2021-04-17 17:49] LABS: Glucose, Whole Blood 188 mg/dL (60-115)
[2021-04-17 20:15] LABS: Glucose, Whole Blood 156 mg/dL (60-115)
[2021-04-17 20:15] LABS: Glucose, Whole Blood 151 mg/dL (60-115)
[2021-04-17 22:10] LABS: Glucose, Whole Blood 173 mg/dL (60-115)
[2021-04-18] VITALS: BP 155/79; PULSE 87; RESP 16; TEMP 36.5; O2SAT 94
[2021-04-18 00:59] LABS: Glucose, Whole Blood 172 mg/dL (60-115)
[2021-04-18] MEDS: Heparin Sodium,Porcine 5,000 UNIT/ML VIAL 5000 UNIT SUBCUT ×2 (01:06→09:15)
[2021-04-18] MEDS: Insulin Lispro 100 UNIT/ML 3 ML VIAL SUBCUT ×5 (01:06→19:20)
[2021-04-18 04:00] VITALS: BP 154/76; PULSE 88; RESP 17; TEMP 36.4; O2SAT 95
[2021-04-18 06:07] LABS: Glucose, Whole Blood 171 mg/dL (60-115)
[2021-04-18] MEDS: Piperacillin Sodium/Tazobactam 3.375 GM in 0.9 % Sodium Chloride 50 ML IV ×4 (06:10→23:53)
[2021-04-18 07:33] LABS: Hematocrit 34.3 % (42.0-52.0); Hemoglobin 11.3 g/dl (14.0-18.0); Mean Corpuscular HGB Conc 32.9 g/dl (31.0-36.0); Mean Corpuscular Hemoglobin 29.5 pg (27.0-33.0); Mean Corpuscular Volume 89.6 fL (80.0-98.0); Mean Platelet Volume 11.2 fL (9.4-12.4); Platelet Count 228 X10*3/uL (160-400); Red Blood Count 3.83 X10*6/uL (4.60-5.80); Red Cell Distribution Width 13.7 % (11.0-16.0); White Blood Count 17.4 X10*3/uL (4.8-10.8)
[2021-04-18 07:40] VITALS: BP 149/74; PULSE 93; RESP 16; TEMP 37.6; O2SAT 93
[2021-04-18 07:44] LABS: Glucose, Whole Blood 163 mg/dL (60-115)
[2021-04-18 07:55] LABS: Anion Gap 12 (12-20); Blood Urea Nitrogen 17 mg/dL (9-16); Calcium 7.4 mg/dL (8.4-10.2); Carbon Dioxide 29 mmol/L (22-29); Chloride 99 mmol/L (96-108); Creatinine Clr Calc Pharmacy 141.9; Estimated Glomerular Filt Rate > 60; Glucose Fasting 171 mg/dL (60-99); Potassium 3.3 mmol/L (3.3-5.1); Sodium 137 mmol/L (135-145)
[2021-04-18 07:57] LABS: Vancomycin Random 14.2 mcg/mL (15-20)
[2021-04-18 08:00] VITALS: BMI 32.9
[2021-04-18] MEDS: Insulin Glargine,Hum.rec.anlog 100 UNIT/ML 10 ML VIAL 40 UNIT SUBCUT (09:07)
[2021-04-18] MEDS: lamoTRIgine 25 MG TABLET 50 MG PO ×2 (09:11→19:20)
[2021-04-18] MEDS: amLODIPine Besylate 10 MG TABLET PO (09:11)
[2021-04-18] MEDS: Metoprolol Tartrate 50 MG TABLET PO ×2 (09:12→19:20)
[2021-04-18] MEDS: vancomycin HCL 1,250 MG in 0.9 % Sodium Chloride 250 ML 166.67 MG IV ×2 (09:15→19:19)
[2021-04-18] MEDS: Lactated Ringers 1,000 ML 100 ML IVCONT ×2 (09:19→19:23)
--- NOTE | 2021-04-18 10:15 | P.CONCA_ITS ---
History of Present Illness History of Present Illness Date of Service: 04/18/21 Requesting physician: Adriana Lim Chief complaint: Paroxysmal atrial fibrillation Narrative: I was requested to see Silvestre in cardiology consultation today for atrial fibrillation. He is a 56-year-old male was not taking care of self admitted to the hospital with severe sepsis, hyperosmolar hyperglycemic state due to 1 manage diabetes, acute kidney injury, diabetic foot infection as well as acute metabolic encephalopathy. He is also COVID positive. Yesterday night, patient developed atrial fibrillation and converted with normal sinus rhythm. Yesterday after he had again developed atrial fibrillation, he felt palpitations yesterday. He says he has never had atrial fibrillation before. No prior cardiac issues. Has been started on metoprolol therapy. No current cardiac symptoms. Prior history of heart failure, myocardial infarction, stroke, hypertension as per him. He has also been hypertensive on admission. No prior history of hypertension. Review of Systems Constitutional: Constitutional: Reports no additional constitutional complaints Eyes: Eyes: Reports no additional eye complaints ENT: Reports system reviewed and no additional complaints, except as documented Cardiovascular: Cardiovascular: Reports no additional cardiovascular complaints Respiratory: Respiratory: Reports no additional respiratory complaints Gastrointestinal: Gastrointestinal: Reports no additional gastrointestinal complaints Genitourinary: Genitourinary: Reports no additional male genitourinary complaints Musculoskeletal: Musculoskeletal: Reports no additional musculoskeletal complaints Integumentary/Breasts: Skin/Breast: Reports system reviewed and no additional complaints, except as docu Neurologic: Reports system reviewed and no additional complaints, except as documented Psychiatric: Psychiatric: Reports no additional psychiatric complaints Endocrine: Endocrine: Reports no additional endocrine complaints [facility] Past Medical History Medical History (Updated 04/18/21 @ 10:21 by Clemente Ferrari MD) Paroxysmal atrial fibrillation Social History Social History Household Members: Family Housing: Unknown / Unable to assess Unable to assess alcohol history related to: Refusing to respond Alcohol intake: current Alcohol intake frequency: a few times a week Patient Tobacco Use Status: Current everyday Tobacco user Smoked in Last 30 Days: Yes Patient Interested in Nicotine Replacement: No Patient Given Instructions on How to Stop Smoking: No Second Hand Smoke Exposure: No Use of substances other than those prescribed or required for medical reasons: Unknown Currently Displaying Signs/Symptoms of Drug Intoxication Withdrawal: No Advance Directives: No Advance Directives Information Provided: No Do you have thoughts of harming others: None Do you have a plan to hurt others: No Plan Recently lost weight without trying: No Eating poorly because of decreased appetite: No Nutrition Risks: No Nutritional Risk and Diabetes new onset/Uncontrolled Meds Allergies Allergy/AdvReac Type Severity Reaction Status Date / Time No Known Allergies Allergy Unverified 12/10/19 14:45 [No Known Allergies*] Active Medications: Current Medications Acetaminophen (Acetaminophen 325 Mg Tablet) 650 mg PO Q6H PRN PRN Reason: Fever >101 Last Admin: 04/15/21 00:20 Dose: 650 mg Documented by: Amlodipine Besylate (Amlodipine Besylate 10 Mg Tablet) 10 mg PO DAILY [facility]; Protocol Last Admin: 04/18/21 09:11 Dose: 10 mg Documented by: Heparin Sodium (Porcine) (Heparin Sodium,Porcine 5,000 Unit/Ml Vial) 5,000 unit SUBCUT Q8H [facility] Last Admin: 04/18/21 09:15 Dose: 5,000 unit Documented by: Hydroxyzine HCl (Hydroxyzine Hcl 50 Mg/Ml Vial) 25 mg IM Q6H PRN PRN Reason: agitation Piperacillin Sod/Tazobactam (Sod 3.375 gm/ Sodium Chloride) 50 mls @ 100 mls/hr IV Q6H [facility] Last Infusion: 04/18/21 06:49 Dose: Infused Documented by: Vancomycin HCl 1,250 mg/ (Sodium Chloride) 250 mls @ 166.667 mls/hr IV Q12H [facility] Last Admin: 04/18/21 09:15 Dose: 166.67 mls/hr Documented by: Lactated Ringer's (Lr) 1,000 mls @ 100 mls/hr IVCONT .Q10H [facility] Last Admin: 04/18/21 09:19 Dose: 100 mls/hr Documented by: Insulin Glargine (Insulin Glargine,Hum.Rec.Anlog 100 Unit/Ml 10 Ml Vial) 40 unit SUBCUT DAILY [facility] Last Admin: 04/18/21 09:07 Dose: 40 unit Documented by: Insulin Human Lispro (Insulin Lispro 100 Unit/Ml 3 Ml Vial) 0 unit SUBCUT Q4H [facility]; Protocol Last Admin: 04/18/21 09:08 Dose: Not Given Documented by: Lamotrigine (Lamotrigine 25 Mg Tablet) 50 mg PO BID [facility] Last Admin: 04/18/21 09:11 Dose: 50 mg Documented by: Metoprolol Tartrate (Metoprolol Tartrate 50 Mg Tablet) 50 mg PO BID [facility]; Protocol Last Admin: 04/18/21 09:12 Dose: 50 mg Documented by: Ondansetron HCl (Ondansetron Hcl 4 Mg/2 Ml Vial) 4 mg IVPUSH Q8H PRN PRN Reason: Nausea Pharmacy Consult (Consult Rx Perform Med Rec) 1 each MISCELLANE ONCE PRN PRN Reason: Consult order Pharmacy Consult (Consult Rx Vancomycin Dosing) 1 each MISCELLANE DAILY PRN PRN Reason: Consult order Home Medications Medication Instructions Recorded Confirmed Last Taken Type No Known Home Meds 04/14/21 04/14/21 Unknown History Physical Exam Vital Signs: Vital Signs: Last Vital Signs Temp 99.6 F 04/18/21 07:40 Pulse 93 04/18/21 07:40 Resp 16 04/18/21 07:40 BP 149/74 H 04/18/21 07:40 Pulse Ox 93 04/18/21 07:40 BMI result Body Mass Index 32.9 Const: General: cooperative, comfortable, no acute distress, alert and awake Nutritional Appearance: overweight Orientation/consciousness: patient oriented x3 Limitations: no limitations HENMT: Head: Yes normocephalic and Yes atraumatic Neck: Neck: Yes trachea midline, Yes supple and Yes no JVD Resp: Effort & Inspection: normal respiratory effort Auscultation: clear to auscultation bilaterally Cardio: Jugular venous distension: no JVD Palpation: normal PMI Rate: regular rate Rhythm: regular rhythm Heart sounds: S1 normal heart sound present, S2 normal heart sound present, no click, no gallops and no murmurs GI: Auscultation: normal bowel sounds Skin: General skin exam: no rashes or lesions noted Neuro: General: patient oriented x3 and no focal motor deficits Extrem: General: Yes no clubbing, cyanosis or edema and Yes other (Left side diabetic foot) Objective Labs and Meds Result diagrams: 04/18/21 07:16 04/18/21 07:16 Lab results: Laboratory Results - last 24 hr 04/17/21 04/17/21 04/17/21 11:23 16:20 17:45 WBC RBC Hgb Hct MCV MCH MCHC RDW Plt Count MPV Absolute Nucleated RBC Nucleated RBC % (auto) Sodium Potassium Chloride Carbon Dioxide Anion Gap BUN Creatinine Estim Creat Clear Calc Estimated GFR POC Glucose 242 H 209 H 188 H Fasting Glucose Calcium Random Vancomycin 04/17/21 04/17/21 04/17/21 20:01 20:11 22:06 WBC RBC Hgb Hct MCV MCH MCHC RDW Plt Count MPV Absolute Nucleated RBC Nucleated RBC % (auto) Sodium Potassium Chloride Carbon Dioxide Anion Gap BUN Creatinine Estim Creat Clear Calc Estimated GFR POC Glucose 151 H 156 H 173 H Fasting Glucose Calcium Random Vancomycin 04/18/21 04/18/21 04/18/21 00:54 06:01 07:16 WBC RBC Hgb Hct MCV MCH MCHC RDW Plt Count MPV Absolute Nucleated RBC Nucleated RBC % (auto) Sodium Potassium Chloride Carbon Dioxide Anion Gap BUN Creatinine Estim Creat Clear Calc Estimated GFR POC Glucose 172 H 171 H Fasting Glucose Calcium Random Vancomycin 14.2 L 04/18/21 04/18/21 04/18/21 07:16 07:16 07:36 WBC 17.4 H RBC 3.83 L Hgb 11.3 L Hct 34.3 L MCV 89.6 MCH 29.5 MCHC 32.9 RDW 13.7 Plt Count 228 MPV 11.2 Absolute Nucleated RBC 0.000 Nucleated RBC % (auto) 0.0 Sodium 137 Potassium 3.3 Chloride 99 Carbon Dioxide 29 Anion Gap 12 BUN 17 H Creatinine 0.81 Estim Creat Clear Calc 141.9 Estimated GFR > 60 POC Glucose 163 H Fasting Glucose 171 H D Calcium 7.4 L D Random Vancomycin EKG on admission shows normal sinus rhythm with nonspecific ST abnormality with no clear Q-waves Assessment and Plan (1) Paroxysmal atrial fibrillation: Status: Acute Symptomatic paroxysmal atrial fibrillation, had symptoms yesterday while he was awake. No prior history of atrial fibrillation as per him but he is certainly at risk for the same given his hypertension as well as diabetes. Not clear about underlying structural heart issues especially atrial enlargement. Will need an echocardiogram, can be done as an outpatient. Importance of compliance with medications as well as medical conditions was discussed with him in details. He says he is going to take care of issues. Avoidance of stimulants such as caffeine and alcohol was discussed. Switch to Toprol-XL 100 mg daily and start on Xarelto 20 mg daily, CHADSVASc score of 2. Will follow-up as outpatient after Holter monitor as well as echocardiogram. From cardiac perspective patient can be discharged home today. Thank you for allowing me to partake in his care Procedures Date of Service Date of Service: 04/18/21
--- NOTE | 2021-04-18 10:44 | P.DS_ITS ---
DS: Providers Provider Date of Service: 04/18/21 Date of admission: 04/14/21 16:28 Primary care physician: Chris Bhagat MD Consults: 04/15/21 09:05 Consult to General Surgery Routine Consulting Provider: [facility] General Surgeons Reason for consultation: Diabetic foot ulcers vs osteomyelitis, evaluate for debridement Has provider been notified: No 04/17/21 11:16 Consult to Cardiology Routine Consulting Provider: Clemente Ferrari Reason for consultation: new? pafib DS: Diagnosis Discharge Diagnosis (1) Paroxysmal atrial fibrillation: Status: Acute (2) Uncontrolled diabetes mellitus: Status: Acute (3) Severe sepsis: Status: Acute (4) IRAIDA (acute kidney injury): Status: Acute (5) Hyperosmolar hyperglycemic state (HHS): Status: Acute (6) COVID-19: Status: Acute (7) Sepsis: Status: Acute (8) Diabetic foot infection: Status: Acute (9) Acute metabolic encephalopathy: Status: Acute DS: Summary Hospital Course Hospital Course: Admission note HPI This is a 56-year-old male with a past medical history of diabetes mellitus with noncompliance with metformin and neuropathy? who presented to the emergency room? via EMS? with complaints of altered mental status.? History was obtained from the mother,? who said she called 911 after the patient ? sustained a fall and was noted to be weak with no LOC.? She reported the patient has experienced cold-like symptoms past week and noncompliance with metformin for the past several months. She also said the patient has multiple wounds in his right foot.? He is not vaccinated for COVID. In the emergency room,? he was noted to be confused,? low-grade temp to 100.1,? tachypneic,? and tachycardic? satting 94% on room air.? Laboratory data was significant for:? WBC 19.2, abs neutrophils 18,? sodium 127, chloride 84, BUN 58, and 2.14, serum glucose 1141,? lactic acid 3.3,? alk phos 120, BNP 206,? albumin 2.8.? Urine? glucose? significantly elevated.? COVID-19 positive ?Right foot x-ray: Soft tissue ulceration/wound along the base of the fifth distal metatarsal with suspicion for two? radiopaque foreign bodies.? No evidence of osteomyelitis ?ED course:? patient received? 30 cc/kg fluid bolus,? 10 units of IV insulin,? empiric dose of vancomycin and Zosyn,? and was started on a insulin drip.? ?Patient will be admitted to the ICU for management of? hyperosmolar hyperglycemic? syndrome ? And? sepsis requiring insulin drip. Hospital course Treated mainly for severe sepsis due to right DFU as he was evaluated by surgical team who recommended bedside debridement wound nurse follow-up. Treated with vancomycin Zosyn with fair response as blood cultures remain negative during the hospital stay. Plan to follow-up as outpatient with the wound clinic. To be prescribed doxycycline and Keflex for 1 more week at time of discharge. Noticed to have paroxysmal atrial fibrillation with rvr the that converted back to sinus rhythm with risk of metoprolol p.o.. Cardiology evaluated the patient and recommended outpatient follow-up for echo and to be discharged on metoprolol 100 XL and Xarelto 20 mg daily for the next month given AFib recent COVID. Presented with picture of HHS, hypernatremia that both resolved with hydration and usage of IV insulin. The patient reported not taking any medications for diabetes for the last 5 years. Started on Lantus and SSI Humalog. To be this started on both with addition of metformin with plan to follow-up with a new PCP for further home recommendations. Acute kidney injury with hypernatremia resolved with usage of IV fluid as the patient improved his mentation and was able to eat and drink regularly. Plan: To follow-up with the wound clinic as outpatient. To get a new primary care physician to follow-up regarding your diabetes, to use insulin and metformin as prescribed To follow up with Cardiology as outpatient Monitor your blood pressure at home and record readings for 1 week amlodipine was started for significantly elevated blood pressure readings. Continue doxycycline and Keflex for 1 more week Time Spent with Patient Time attestation: Total time spent providing and/or coordinating discharge services: Discharge coordination time: Greater than 30 minutes Quality: Stroke Does the patient have a stroke diagnosis?: No Physical Exam Verdana 4l Vital Signs: Verdana 4d Verdana 4d Vital Signs: Verdana 4d Verdana 4Bd Last Vital Signs Verdana 4d Homemaker Companion New 4d Homemaker Companion New 4d Temp 99.6 F 04/18/21 07:40 Homemaker Companion New 4d Pulse 93 04/18/21 07:40 Homemaker Companion New 4d Resp 16 04/18/21 07:40 BP 149/74 H 04/18/21 07:40 Pulse Ox 93 04/18/21 07:40 BMI result Body Mass Index 32.9 Const: Other: Constitutional : Alert, oriented, not in distress Neck : Normal inspection, Supple Cardiovascular : RRR, S1 S2, no lower extremity edema Respiratory : Good bilateral air entry, no crackles, wheezes or rhonchi Gastrointestinal: soft, lax, Normal bowel sounds, Non tender Skin : Warm, Dry Extremities: Right foot with diabetic foot wounds - right plantar and lateral dorsal area with no significant erythema, drainage or tenderness covered with dressing. draining clear fluid Neurological : Alert & oriented x3, No focal deficit DS: Data Data Completed and Pending Labs on day of discharge: Laboratory Results - last 24 hr 04/17/21 04/17/21 04/17/21 11:23 16:20 17:45 WBC RBC Hgb Hct MCV MCH MCHC RDW Plt Count MPV Absolute Nucleated RBC Nucleated RBC % (auto) Sodium Potassium Chloride Carbon Dioxide Anion Gap BUN Creatinine Estim Creat Clear Calc Estimated GFR POC Glucose 242 H 209 H 188 H Fasting Glucose Calcium Random Vancomycin 04/17/21 04/17/21 04/17/21 20:01 20:11 22:06 WBC RBC Hgb Hct MCV MCH MCHC RDW Plt Count MPV Absolute Nucleated RBC Nucleated RBC % (auto) Sodium Potassium Chloride Carbon Dioxide Anion Gap BUN Creatinine Estim Creat Clear Calc Estimated GFR POC Glucose 151 H 156 H 173 H Fasting Glucose Calcium Random Vancomycin 04/18/21 04/18/21 04/18/21 00:54 06:01 07:16 WBC RBC Hgb Hct MCV MCH MCHC RDW Plt Count MPV Absolute Nucleated RBC Nucleated RBC % (auto) Sodium Potassium Chloride Carbon Dioxide Anion Gap BUN Creatinine Estim Creat Clear Calc Estimated GFR POC Glucose 172 H 171 H Fasting Glucose Calcium Random Vancomycin 14.2 L 04/18/21 04/18/21 04/18/21 07:16 07:16 07:36 WBC 17.4 H RBC 3.83 L Hgb 11.3 L Hct 34.3 L MCV 89.6 MCH 29.5 MCHC 32.9 RDW 13.7 Plt Count 228 MPV 11.2 Absolute Nucleated RBC 0.000 Nucleated RBC % (auto) 0.0 Sodium 137 Potassium 3.3 Chloride 99 Carbon Dioxide 29 Anion Gap 12 BUN 17 H Creatinine 0.81 Estim Creat Clear Calc 141.9 Estimated GFR > 60 POC Glucose 163 H Fasting Glucose 171 H D Calcium 7.4 L D Random Vancomycin Preliminary micro results at discharge 04/14/21 09:30 Blood Culture - Preliminary Blood - Venous No growth after 48 hours. 04/14/21 09:30 Blood Culture - Preliminary Blood - Venous No growth after 48 hours. Discharge Plan Discharge Patient Disposition: Home Health Service Discharge Diagnosis: Sepsis secondary to Diabetic foot infection Acute kidney injury Uncontrolled diabetes type 2 New onset atrial fibrillation Referrals: Chris Bhagat MD [Primary Care Provider] - 1 Week Discharge Medications: New amlodipine 10 mg Tablet 10 mg PO DAILY 30 Days Qty: 30 0RF Protocol: Hold for SBP< HOLD for SBP < : 90 metformin 500 mg tablet 500 mg PO BID Qty: 60 0RF doxycycline monohydrate 100 mg capsule 100 mg PO BID Qty: 14 0RF cephalexin 500 mg capsule 500 mg PO Q12H Qty: 14 0RF Xarelto 20 mg tablet 20 mg PO DAILY Qty: 30 0RF Rx Instructions: must administer with evening meal (DME) FreeStyle Lite Strips Strip See Rx Instructions .ROUTE .MEDSUPPLY Qty: 100 0RF Rx Instructions: As directed (DME) lancets Misc See Rx Instructions .ROUTE .MEDSUPPLY Qty: 100 0RF Rx Instructions: 4 times daily (DME) blood-glucose meter [FreeStyle Lite Meter] Kit See Rx Instructions .ROUTE .MEDSUPPLY Qty: 1 0RF Rx Instructions: As directed insulin lispro [Humalog KwikPen Insulin] 100 unit/mL insulin pen 1 sliding scale dose subcut USEASDIRECTD Qty: 15 1RF insulin glargine 100 unit/mL (3 mL) insulin pen 35 unit subcut QAM Qty: 15 1RF metoprolol succinate 100 mg tablet extended release 24 hr 100 mg PO DAILY Qty: 30 0RF Discharge Orders: Discharge Order (Routine); Ordered 04/18/21 Ordered By: Adriana Lim Diet: advance to usual diet Activity on Discharge: As tolerated Stand Alone Forms: Patient Portal Discharge page Activity Restrictions/Additional Instructions: Cleanse right foot with wound cleanser. Then apply silver alginate to ulcer on plantar foot then apply Triad to all black and yellow areas on dorsal and plantar right foot, cover with non woven gauze and roll gauze. Please follow up with the Wound Clinic. [phone]. Care Plan Goals: Read below Health Concerns: Read below Plan of Treatment: Read below Assessment: You were admitted to the hospital for evaluation of altered mentation. Found to be in significantly elevated blood sugar levels requiring ICU admission for IV insulin usage. Your sugar number improved and you were noticed to foot infection evaluated by the surgery team who did bedside debridement for the wound with recurrent dressing as you were treated with IV antibiotics. You were noticed to a new heart rhythm called atrial fibrillation that resolved. You were evaluated by heart doctor who would like to follow up with you in the clinic. You will be started on metoprolol and Xarelto to help controlling the disease and prevent possible strokes. To follow-up with the wound clinic as outpatient. To get a new primary care physician to follow-up regarding your diabetes, to use insulin and metformin as prescribed To follow up with Cardiology as outpatient Monitor your blood pressure at home and record readings for 1 week amlodipine was started for significantly elevated blood pressure readings. Continue doxycycline and Keflex for 1 more week
[2021-04-18 10:47] LABS: Estimated Average Glucose 326 mg/dL
[2021-04-18 11:38] VITALS: BP 139/74; PULSE 85; RESP 16; TEMP 37.1; O2SAT 94
[2021-04-18 11:48] LABS: Glucose, Whole Blood 165 mg/dL (60-115)
[2021-04-18] MEDS: Rivaroxaban 20 MG TABLET PO (12:18)
[2021-04-18 16:32] LABS: Glucose, Whole Blood 178 mg/dL (60-115)
[2021-04-18 19:11] VITALS: BP 150/63; PULSE 94; RESP 20; TEMP 36.3; O2SAT 93
[2021-04-18 19:19] LABS: Glucose, Whole Blood 182 mg/dL (60-115)
[2021-04-18 23:04] VITALS: BP 146/65; PULSE 91; RESP 20; TEMP 36.9; O2SAT 95
[2021-04-19 00:22] LABS: Glucose, Whole Blood 134 mg/dL (60-115)
[2021-04-19 02:37] VITALS: BP 146/64; PULSE 90; RESP 20; TEMP 36.8; O2SAT 94
[2021-04-19] MEDS: Piperacillin Sodium/Tazobactam 3.375 GM in 0.9 % Sodium Chloride 50 ML IV (03:52)
[2021-04-19 05:54] LABS: Glucose, Whole Blood 146 mg/dL (60-115)
[2021-04-19 07:11] LABS: Glucose, Whole Blood 161 mg/dL (60-115)
[2021-04-19 08:00] VITALS: BP 155/77; PULSE 91; RESP 18; TEMP 36.9; O2SAT 96
[2021-04-19] MEDS: Insulin Glargine,Hum.rec.anlog 100 UNIT/ML 10 ML VIAL 40 UNIT SUBCUT (08:45)
[2021-04-19] MEDS: Insulin Lispro 100 UNIT/ML 3 ML VIAL SUBCUT (08:45)
[2021-04-19] MEDS: amLODIPine Besylate 10 MG TABLET PO (08:45)
[2021-04-19] MEDS: Metoprolol Tartrate 50 MG TABLET PO (08:45)
[2021-04-19] MEDS: lamoTRIgine 25 MG TABLET 50 MG PO (08:45)
[2021-04-19] MEDS: vancomycin HCL 1,250 MG in 0.9 % Sodium Chloride 250 ML 167 MG IV (08:46)
--- NOTE | 2021-04-19 08:46 | MHC.CM.PN ---
Male 56 DX [facility] He was scheduled to discharge yesterday 04/18/21. The discharge was held r/t Pt DTV s/p Nascimento catheter removal. Patient was not able to void. He is voiding WNL today. He is dc today to home. His Mother is providing transportation. He is set up with [facility] (finalncial referral complete). He has a new PCP D [address] 04/24/21. [facility]na will start services with referral from new PCP. Patient will resume care @ [facility] wound clinic. He is competent to manage dressings until Home services can start for wound care and assessment, aswell as DM and wound management education.
== END 2021-04-19 10:45 | disposition home or self-care (01) | DRG 871 ==
LOC: HO.ED 16:20 → HO.EDOVER 16:45 → HO.ICU 17:30 → HO.IMC 04-15 13:00
PROVIDERS: Internal Medicine; Physician Assistant; Admitting Provider Internal Medicine Pulmonary Disease; Emergency Provider Emergency Medicine Emergency Medical Services; PCP Internal Medicine; Visit Provider Student in an Organized Health Care Education/Training Program
DX: A41.9 Sepsis, unspecified organism (principal); U07.1 COVID-19; E11.00 Type 2 diabetes mellitus with hyperosmolarity without nonketotic hyperglycemic-hyperosmolar coma (NKHHC); G93.41 Metabolic encephalopathy; N17.9 Acute kidney failure, unspecified; L97.419 Non-pressure chronic ulcer of right heel and midfoot with unspecified severity; E87.0 Hyperosmolality and hypernatremia; E11.40 Type 2 diabetes mellitus with diabetic neuropathy, unspecified; R65.20 Severe sepsis without septic shock; Z91.14 Patient's other noncompliance with medication regimen; I10 Essential (primary) hypertension; I48.0 Paroxysmal atrial fibrillation; E11.621 Type 2 diabetes mellitus with foot ulcer; Z79.4 Long term (current) use of insulin; Z79.84 Long term (current) use of oral hypoglycemic drugs; Z79.01 Long term (current) use of anticoagulants; Z79.899 Other long term (current) drug therapy
CPT/HCPCS: 36415; 70450; 71045; 73630; 80048; 80053; 80076; 80202; 80307; 81001; 82009; 82040; 82077; 82550; 82565; 82803; 82947; 83036; 83605; 83690; 83735; 83880; 83930; 84100; 84484; 85007; 85025; 85027; 85610; 85652; 85730; 86140; 87040; 87635; 93005; 96361; 96365; 96367; 96375; 96376; 99285; 99291; 99292; J2543; J3370; P9047

== ENCOUNTER 2021-04-26 12:38 | Outpatient (RCR) | payer OTHER, SELFPAY ==
--- NOTE | ~2021-04-26 | XR_ITS ---
EXAMINATION: XR CHEST CLINICAL INFORMATION: Preprocedure chest radiograph. COMPARISON: Chest radiograph 04/14/2021 TECHNIQUE: 2 views of the chest were obtained. FINDINGS: There is a right-sided PICC with tip at distal SVC. The lungs are clear. The vascularity is normal. There is no infiltrate or groundglass opacity or effusion. The heart is normal in size. The hilar and mediastinal contours and bony structures are similar to prior study. XR/XR chest 2V IMPRESSION: 1. Right-sided PICC with tip at distal SVC. 2. Lungs clear.
== END 2022-01-31 13:32 | disposition home or self-care (01) ==
LOC: HO.WCC 12:38
PROVIDERS: PCP Internal Medicine; Visit Provider Surgery
DX: E11.621 Type 2 diabetes mellitus with foot ulcer (principal); L97.512 Non-pressure chronic ulcer of other part of right foot with fat layer exposed; L97.515 Non-pressure chronic ulcer of other part of right foot with muscle involvement without evidence of necrosis; E11.69 Type 2 diabetes mellitus with other specified complication; M86.271 Subacute osteomyelitis, right ankle and foot; L84 Corns and callosities; I48.91 Unspecified atrial fibrillation; I10 Essential (primary) hypertension; F17.210 Nicotine dependence, cigarettes, uncomplicated; Z79.4 Long term (current) use of insulin; Z79.2 Long term (current) use of antibiotics; Z79.899 Other long term (current) drug therapy
CPT/HCPCS: 11042; 11043; 11044; 11045; 11046; 11047; 15275; 15276; 71046; 88304; 88305; 88311; 97606; 99183; 99212; 99215; Q4101

== ENCOUNTER 2021-04-26 14:35 | Inpatient (IN) | payer OTHER, SELFPAY ==
--- NOTE | ~2021-04-26 | CT_ITS ---
EXAMINATION: CT FOOT WITH CONTRAST, RIGHT CLINICAL INFORMATION: Acute on chronic infection with drainage. COMPARISON: Radiograph of the right foot dated from 04/14/2021. TECHNIQUE: Axial, coronal and sagittal images of the right foot were obtained following the administration of 85 mL of intravenous Omnipaque 350. This CT examination was performed using dose optimization techniques as appropriate, variously including the following: *Automated exposure control *Adjustment of mA and/or kV according to patient size (this includes techniques or standardized protocols for targeted exams where dose is matched to indication/reason for exam; i.e. extremities or head) *Use of iterative reconstruction technique DLP: 208 mGy-cm FINDINGS: Extensive fat stranding, free fluid and subcutaneous air throughout the right foot, for instance more noticeable surrounding the phalanges of the fifth toe and in between muscular tendons of the plantar surface of the foot concerning for a necrotizing infection. There are erosive changes in the head of the fifth metatarsal bone and phalanges of the fifth toe (sagittal images 113 and 109 of series 8). There are also erosive changes within the intermediate and medial cuneiforms (for instance, sagittal image 66 of series 8). A discrete organized drainable abscess is not identified. CT/CT foot RT w con IMPRESSION: Findings concerning for a necrotizing infection with osteomyelitis in the fifth toe and cuneiforms. This critical result was discussed with Nubia Manuel at 04/26/2021 8:53 PM and it was ascertained that the content and urgency of the report was understood at the time of direct communication.
--- NOTE | ~2021-04-26 | US_ITS ---
EXAMINATION: COLOR-FLOW DUPLEX IMAGING OF THE BILATERAL LOWER EXTREMITY ARTERIAL SYSTEM. VELOCITY MEASUREMENTS THROUGHOUT THE FEMORAL ARTERIES WITH ANKLE-BRACHIAL PERIPHERAL ARTERIAL TESTING. Interventional Radiologist: Marlon Howe M.D., F.S.I.R., F.A.C.R. CLINICAL INFORMATION: This is a 56-year-old male with peripheral arterial disease. Hypertension, smoking, diabetes. RIGHT FEMORAL RUNOFF VELOCITIES: The right common femoral artery measures 154 cm/s and triphasic. The right profunda femoral artery is 116 cm/s and is triphasic. Right proximal superficial femoral artery measures 103 cm/s and triphasic. Mid superficial femoral artery is 125 cm/s and triphasic. Distal right superficial femoral artery measures 147 cm/s and is triphasic. Right popliteal velocity measures 156 cm/s and is triphasic. The posterior tibial artery velocity measures 144 cm/s and was monophasic. The right ankle-brachial index is 1.26. LEFT FEMORAL RUNOFF VELOCITIES: The left common femoral artery measures 127 cm/s and triphasic. The left profunda femoral artery is 95 cm/s and is triphasic. Left proximal superficial femoral artery measures 108 cm/s and triphasic. Mid superficial femoral artery is 123 cm/s and triphasic. Distal left superficial femoral artery measures 105 cm/s and is triphasic. Left popliteal velocity measures 106 cm/s and is triphasic. The left ankle-brachial index is 1.17. US/US SUKUMAR complete IMPRESSION: 1. Normal bilateral resting peripheral arterial testing without evidence of hemodynamically significant stenosis.
--- NOTE | ~2021-04-26 | US_ITS ---
EXAMINATION: COLOR-FLOW DUPLEX IMAGING OF THE BILATERAL LOWER EXTREMITY ARTERIAL SYSTEM. VELOCITY MEASUREMENTS THROUGHOUT THE FEMORAL ARTERIES WITH ANKLE-BRACHIAL PERIPHERAL ARTERIAL TESTING. Interventional Radiologist: Marlon Howe M.D., F.S.I.R., F.A.C.R. CLINICAL INFORMATION: This is a 56-year-old male with peripheral arterial disease. Hypertension, smoking, diabetes. RIGHT FEMORAL RUNOFF VELOCITIES: The right common femoral artery measures 154 cm/s and triphasic. The right profunda femoral artery is 116 cm/s and is triphasic. Right proximal superficial femoral artery measures 103 cm/s and triphasic. Mid superficial femoral artery is 125 cm/s and triphasic. Distal right superficial femoral artery measures 147 cm/s and is triphasic. Right popliteal velocity measures 156 cm/s and is triphasic. The posterior tibial artery velocity measures 144 cm/s and was monophasic. The right ankle-brachial index is 1.26. LEFT FEMORAL RUNOFF VELOCITIES: The left common femoral artery measures 127 cm/s and triphasic. The left profunda femoral artery is 95 cm/s and is triphasic. Left proximal superficial femoral artery measures 108 cm/s and triphasic. Mid superficial femoral artery is 123 cm/s and triphasic. Distal left superficial femoral artery measures 105 cm/s and is triphasic. Left popliteal velocity measures 106 cm/s and is triphasic. The left ankle-brachial index is 1.17. US/US arterial duplex LE BI IMPRESSION: 1. Normal bilateral resting peripheral arterial testing without evidence of hemodynamically significant stenosis.
[2021-04-26 14:41] VITALS: BP 115/67; PULSE 92; RESP 18; TEMP 36.5; O2SAT 100; BMI 29.3
[2021-04-26 15:54] LABS: MANUAL DIFF FLAG NO
[2021-04-26 16:01] LABS: Basophils Absolute Auto 0.1 X10*3/uL (0.0-0.2); Basophils Percent Auto 0.4 % (0-2); Eosinophils Absolute Auto 0.2 X10*3/uL (0.0-0.4); Eosinophils Percent Auto 1.7 % (0-4); Hematocrit 29.9 % (42.0-52.0); Hemoglobin 9.6 g/dl (14.0-18.0); Imm Gran Abs Auto 0.05 X10*3/uL (0.00-0.03); Imm Gran Pct Auto 0.4 % (0.0-0.4); Lymphocytes Absolute Auto 1.9 X10*3/uL (1.2-4.9); Lymphocytes Percent Auto 15.5 % (20-40); Mean Corpuscular HGB Conc 32.1 g/dl (31.0-36.0); Mean Corpuscular Hemoglobin 29.2 pg (27.0-33.0); Mean Corpuscular Volume 90.9 fL (80.0-98.0); Mean Platelet Volume 9.3 fL (9.4-12.4); Monocytes Absolute Auto 0.8 X10*3/uL (0.1-1.2); Monocytes Percent Auto 6.8 % (2-11); Neutrophils Percent Auto 75.2 % (45-73); Platelet Count 722 X10*3/uL (160-400); Red Blood Count 3.29 X10*6/uL (4.60-5.80)
[2021-04-26 16:17] LABS: Alanine Aminotransferase 16 U/L (0-40); Albumin Level 2.3 g/dL (3.5-5.0); Alkaline Phosphatase 98 U/L (39-117); Anion Gap 12 (12-20); Aspartate Amino Transferase 21 U/L (5-37); Bilirubin Total 0.3 mg/dL (0.0-1.0); Blood Urea Nitrogen 11 mg/dL (9-16); Calcium 7.4 mg/dL (8.4-10.2); Carbon Dioxide 27 mmol/L (22-29); Chloride 98 mmol/L (96-108); Creatinine Clr Calc Pharmacy 77.7; Estimated Glomerular Filt Rate 52; Glucose Random 190 mg/dL (60-115); Sodium 133 mmol/L (135-145); Total Protein 7.9 g/dL (6.5-8.0)
--- NOTE | 2021-04-26 18:06 | ED_ITS ---
HPI - General Adult General Chief complaint: Skin/Abscess/Foreign Body Stated complaint: Wound check r foot Time Seen by Provider: 04/26/21 17:48 Source: patient Mode of arrival: ambulatory Limitations: no limitations History of Present Illness HPI narrative: 56 y/o male with history of DM on insulin, chronic right foot wound since 2017, obesity, HTN, paroxysmal afib who was recently admitted to [facility] 04/14-04/18 for AMS 2/2 HHS (glucose 1200 in the setting of noncompliance), infected right foot wound who presents back to the ER from the [facility] for evaluation of worsening necrosis and drainage of the right foot wounds. Patient reports increased drainage from the wounds on the foot since he was discharged. He was sent home on doxycycline and keflex x1 week. He denies any fevers. His roommate who is a retired medic has been doing his dressing changes and he has been walking on the foot. He denies any pain and reports both of his feet are basically numb. MD complaint: right foot wound Onset (ago): unknown Location: right and lower extremity Radiation: proximal Severity: moderate Relieving factors: none Exacerbating factors: other (bearing weight) Associated symptoms: denies other symptoms Treatments prior to arrival: other (wound care, dressings) Related Data Home Medications Medication Instructions Recorded Confirmed insulin glargine 100 unit/mL (3 35 unit SUBCUT BEDTIME 04/26/21 04/26/21 mL) subcutaneous pen rivaroxaban 20 mg tablet 20 mg PO DAILY@1700 04/26/21 04/26/21 (Xarelto) Previous Rx's Medication Instructions Recorded amlodipine 10 mg tablet 10 mg PO DAILY 30 Days #30 tab 04/18/21 metformin 500 mg tablet 500 mg PO BID #60 tab 04/18/21 metoprolol succinate 100 mg 100 mg PO DAILY #30 tab 04/18/21 tablet,extended release 24 hr insulin lispro 100 unit/mL See Protocol SUBCUT QIDACHS #15 ml 04/21/21 subcutaneous pen (Humalog KwikPen MDD 40 (U-100) Insulin) Allergies Allergy/AdvReac Type Severity Reaction Status Date / Time No Known Allergies Allergy Verified 04/26/21 11:05 [No Known Allergies*] Review of Systems Verdana 4l Review of Systems: Verdana 4d Verdana 4d Constitutional: No Fever, No Chills ENT/Mouth: No sore throat, No Rhinorrhea Cardiovascular: No Chest Pain, No SOB, No Orthopnea, No Edema Respiratory: No Cough, No Sputum, No Wheezing, No dyspnea Gastrointestinal: No Nausea, No VomitingVomiting, No Diarrhea, No abdominal Pain Genitourinary: No Dysuria, No Urinary Frequency, No Hematuria Musculoskeletal: No joint pain, No Myalgias Skin: + Skin Lesions, No rash, +Drainge Neuro: No Weakness, + Numbness, No Dizziness, No Headache Psych: No Anxiety/Panic, No Depression Heme/Lymph: No Bruising, No Lymphadenopathy Endocrine: No Polyuria, No Polydipsia PMFSH Past Medical History Medical History COVID-19 Diabetic foot infection Hypertension Paroxysmal atrial fibrillation Type II diabetes mellitus Uncontrolled diabetes mellitus Surgical History No pertinent past surgical history Family History Family History Mother No problems noted. Father No problems noted. Social History Social History Household Members: Family Housing: House Unable to assess alcohol history related to: Refusing to respond Alcohol intake: current Alcohol intake frequency: a few times a week Patient Tobacco Use Status: Current everyday Tobacco user Tobacco use type: Cigarette Cigarette Packs Per Day: 1 Cigarettes Per Day: 20 e-Cigarette/Vaping Use: Never Used Second Hand Smoke Exposure: No Advance Directives: No Advance Directives Information Provided: No service: No Current occupational status: unemployed Cognitive needs: No Hearing needs: No Vision needs: No Physical Exam Verdana 4l Vital Signs: Verdana 4d Verdana 4d Vital Signs: Verdana 4d Verdana 4Bd Last Vital Signs Verdana 4d Kier Pleater New 4d Kier Pleater New 4d Temp 98.9 F 04/26/21 20:24 Kier Pleater New 4d Pulse 95 04/26/21 20:24 Kier Pleater New 4d Resp 16 04/26/21 20:24 BP 124/68 04/26/21 20:24 Pulse Ox 98 04/26/21 20:24 BMI result Body Mass Index 29.3 Appearance: Alert. Oriented X3. No acute distress. Eyes: Pupils equal, round and reactive to light. ENT: Pharynx normal. Neck: Normal inspection. Neck supple. CVS: Normal heart rate and rhythm. Pulses normal. Respiratory: No respiratory distress. Breath sounds normal. Abdomen: Obese Soft and nontender. +BS x4 Skin: Skin warm and dry. Normal skin color. Normal skin turgor. No rashes. Extremities: Right foot with extensive wounds on all services with new areas of blackening necrosis including toes #3 & 5, purulent drainage from all wounds (SEE PHOTOS BELOW) Neuro: Oriented X 3. No motor deficit. + sensory deficit on the bilateral feet Course Course Course Narrative: 56-year-old male with a history of diabetes and recent initiation on insulin, recently diagnosed paroxysmal AFib now on Xarelto, HTN, obesity who presents to the ER with worsening right foot wound since discharge from the hospital. He completed oral antibiotics after discharge and has worsening drainage and skin changes. He denies any fevers at home. He was sent in from the wound clinic. On arrival to the ER his vital signs are normal. On examination his foot wounds are significantly worse than when he was admitted last month. WBC slightly elevated 12. He has a new thrombocytosis with platelets 722. Will check inflammatory markers as well as CT scan of the foot given significant drainage. Will require admission for IV antibiotics and surgical evaluation. COVID and med rec ordered. Will start IV Zosyn and vancomycin for broad coverage. Culture of the foot has been ordered. Patient agreeable to admission. Reevaluation(s) Reevaluation #1: CT scan with concern for possible necrotizing infection with foci of air in the foot as well as evidence of osteomyelitis. Discussed with Dr. Crowell who saw the patient earlier in the ED - he does not feel this is a necrotizing infection and that the air entered from the open wounds and a tract present on the bottom of the foot. He is not septic at this time. He would like to debride the patient's wounds - recommended holding anticoagulation for now. Reevaluation #2: Spoke with Dr. Rey for admission - recommending surgical admission. Dr. Crowell accepts with Medicine consult. Consultations Consultation #1: General surgery Dr. Crowell Consultation #2: medicine hospitalist Dr. Rey Medical Decision Making Lab Data Result diagrams: 04/26/21 15:50 04/26/21 15:50 Labs: Lab Results 04/26/21 04/26/21 04/26/21 Range/Units 15:50 15:50 15:50 WBC 12.0 H (4.8-10.8) X10*3/uL RBC 3.29 L (4.60-5.80) X10*6/uL Hgb 9.6 L (14.0-18.0) g/dl Hct 29.9 L (42.0-52.0) % MCV 90.9 (80.0-98.0) fL MCH 29.2 (27.0-33.0) pg MCHC 32.1 (31.0-36.0) g/dl RDW 14.0 (11.0-16.0) % Plt Count 722 H D (160-400) X10*3/uL MPV 9.3 L (9.4-12.4) fL Immature Gran % (Auto) 0.4 (0.0-0.4) % Neut % (Auto) 75.2 H (45-73) % Lymph % (Auto) 15.5 L (20-40) % [place] % (Auto) 6.8 (2-11) % Eos % (Auto) 1.7 (0-4) % Baso % (Auto) 0.4 (0-2) % Lymph # (Auto) 1.9 (1.2-4.9) X10*3/uL [place] # (Auto) 0.8 (0.1-1.2) X10*3/uL Eos # (Auto) 0.2 (0.0-0.4) X10*3/uL Baso # (Auto) 0.1 (0.0-0.2) X10*3/uL Abs Immat Gran (auto) 0.05 H (0.00-0.03) X10*3/uL Absolute Neuts (auto) 9.0 H (2.0-8.3) x10*3/uL Absolute Nucleated RBC 0.000 (0.0-0.012) X10*3/uL Nucleated RBC % (auto) 0.0 (0.0-0.2) /100WBC ESR 105 H (0-15) MM/HR Sodium 133 L (135-145) mmol/L Potassium 4.0 D (3.3-5.1) mmol/L Chloride 98 (96-108) mmol/L Carbon Dioxide 27 (22-29) mmol/L Anion Gap 12 (12-20) BUN 11 (9-16) mg/dL Creatinine 1.40 (0.5-1.4) mg/dL Estim Creat Clear Calc 77.7 Estimated GFR 52 Random Glucose 190 H D (60-115) mg/dL Lactic Acid (0.5-2.0) mmol/L Calcium 7.4 L (8.4-10.2) mg/dL Total Bilirubin 0.3 (0.0-1.0) mg/dL AST 21 (5-37) U/L ALT 16 (0-40) U/L Alkaline Phosphatase 98 (39-117) U/L C-Reactive Protein 9.14 H (< or = 0.50) mg/dL Total Protein 7.9 D (6.5-8.0) g/dL Albumin 2.3 L (3.5-5.0) g/dL COVID-19 (BENNIE) (Negative) COVID-19 Clin Com 04/26/21 04/26/21 Range/Units 19:42 19:42 WBC (4.8-10.8) X10*3/uL RBC (4.60-5.80) X10*6/uL Hgb (14.0-18.0) g/dl Hct (42.0-52.0) % MCV (80.0-98.0) fL MCH (27.0-33.0) pg MCHC (31.0-36.0) g/dl RDW (11.0-16.0) % Plt Count (160-400) X10*3/uL MPV (9.4-12.4) fL Immature Gran % (Auto) (0.0-0.4) % Neut % (Auto) (45-73) % Lymph % (Auto) (20-40) % [place] % (Auto) (2-11) % Eos % (Auto) (0-4) % Baso % (Auto) (0-2) % Lymph # (Auto) (1.2-4.9) X10*3/uL [place] # (Auto) (0.1-1.2) X10*3/uL Eos # (Auto) (0.0-0.4) X10*3/uL Baso # (Auto) (0.0-0.2) X10*3/uL Abs Immat Gran (auto) (0.00-0.03) X10*3/uL Absolute Neuts (auto) (2.0-8.3) x10*3/uL Absolute Nucleated RBC (0.0-0.012) X10*3/uL Nucleated RBC % (auto) (0.0-0.2) /100WBC ESR (0-15) MM/HR Sodium (135-145) mmol/L Potassium (3.3-5.1) mmol/L Chloride (96-108) mmol/L Carbon Dioxide (22-29) mmol/L Anion Gap (12-20) BUN (9-16) mg/dL Creatinine (0.5-1.4) mg/dL Estim Creat Clear Calc Estimated GFR Random Glucose (60-115) mg/dL Lactic Acid 1.8 (0.5-2.0) mmol/L Calcium (8.4-10.2) mg/dL Total Bilirubin (0.0-1.0) mg/dL AST (5-37) U/L ALT (0-40) U/L Alkaline Phosphatase (39-117) U/L C-Reactive Protein (< or = 0.50) mg/dL Total Protein (6.5-8.0) g/dL Albumin (3.5-5.0) g/dL COVID-19 (BENNIE) Negative (Negative) COVID-19 Clin Com See Note Critical Care Time Critical Care Time Critical Care Time: Yes Total Critical Care Time: 48 Attestation: I have personally provided critical care time exclusive of time spent on se parately billable procedures. Time includes review of lab data, radiology results, discussion with consultants, and monitoring for potential decompensation. Intervention performed as documented. Discharge Plan Discharge Clinical Impression: Diabetic foot infection, Osteomyelitis Patient Disposition: Admitted As Inpatient
[2021-04-26 18:23] LABS: C Reactive Protein 9.14 mg/dL (< or = 0.50)
[2021-04-26] MEDS: 0.9 % Sodium Chloride 1,000 ML 999 ML IVCONT (18:38)
--- NOTE | 2021-04-26 18:51 | PHA.MEDREC ---
Pharmacy Consult ? Medication Reconciliation Pharmacy has completed the medication reconciliation. Patient finished abx this am
[2021-04-26 19:02] LABS: Erythrocyte Sedimentation Rate 105 MM/HR (0-15)
[2021-04-26] MEDS: iohexoL 350 MG/ML 100 ML INFUS..BTL IV (19:32)
[2021-04-26] MEDS: Piperacillin Sodium/Tazobactam 3.375 GM in 0.9 % Sodium Chloride 50 ML IV (19:53)
[2021-04-26 20:04] LABS: Lactic Acid 1.8 mmol/L (0.5-2.0)
[2021-04-26 20:06] LABS: COVID-19 Test Negative (Negative)
[2021-04-26] MEDS: vancomycin HCL 1,500 MG in 0.9 % Sodium Chloride 500 ML 333.33 MG IV (20:18)
[2021-04-26 20:24] VITALS: BP 124/68; PULSE 95; RESP 16; TEMP 37.2; O2SAT 98
--- NOTE | 2021-04-26 21:23 | P.HPGS_ITS ---
History of Present Illness History of Present Illness Date of Service: 04/30/21 Chief complaint: PVD - RIGHT LEG Narrative: Silvestre Stallings Jr is a 56 year old male sent by the Wound Clinic to the ED earlier today because of worsening right foot infection. He had been admitted to the hospital 2 weeks ago for uncontrolled DM, IRAIDA and new onset afib. He was also noted to have a DM foot infection on the right and bedside debridement was done then. He was eventually discharged last week and was seen today by the Wound Clinic. He was noted to have worsening of the DM foot infection, with open tracking wounds. The patient denied fever. He says he seems to be doing well at home and thought his blood sugar was better controlled. He also admits to being a heavy smoker and says that he plans to quit smoking Review of Systems Verdana 4l Constitutional: Verdana 4d Constitutional: Verdana 4d Verdana 4d Denies chills and Denies fever(s) Verdana 4l Cardiovascular: Verdana 4d Cardiovascular: Verdana 4d Verdana 4d Denies chest pain, Denies dyspnea and Denies dyspnea on exertion Verdana 4l Respiratory: Verdana 4d Verdana 4d Respiratory: Verdana 4d Denies cough, Denies dyspnea and Denies dyspnea on exertion Verdana 4l Gastrointestinal: Verdana 4d Gastrointestinal: Verdana 4d Verdana 4d Denies hematochezia and Denies change in bowel habits Verdana 4l Genitourinary: Verdana 4d Verdana 4d Genitourinary: Verdana 4d Denies hematuria and Denies difficulty urinating Verdana 4l Musculoskeletal: Verdana 4d Musculoskeletal: Verdana 4d Verdana 4d Denies back pain and Denies limited range of motion Verdana 4l Neurologic: Verdana 4d Denies focal weakness and Denies convulsions Verdana 4l Psychiatric: Verdana 4d Verdana 4d Psychiatric: Verdana 4d Denies depression and Denies mood swings PMF Past Medical History Medical History COVID-19 Diabetic foot infection Hypertension Paroxysmal atrial fibrillation Type II diabetes mellitus Uncontrolled diabetes mellitus Family History Family History Mother No problems noted. Father No problems noted. Surgical History Surgical History No pertinent past surgical history Social History Social History Household Members: Family Housing: House Do you presently have visiting nurse or other home services: No Unable to assess alcohol history related to: Refusing to respond Alcohol intake: current Alcohol intake frequency: does not drink Patient Tobacco Use Status: Never used Tobacco Tobacco use type: Cigarette Cigarette Packs Per Day: 1 Cigarettes Per Day: 20.0 e-Cigarette/Vaping Use: Never Used Second Hand Smoke Exposure: No service: No Current occupational status: unemployed Cognitive needs: No Hearing needs: No Vision needs: No Meds Allergies Allergy/AdvReac Type Severity Reaction Status Date / Time No Known Allergies Allergy Verified 04/26/21 11:05 [No Known Allergies*] Active Medications: Current Medications Pharmacy Consult (Consult Rx Perform Med Rec) 1 each MISCELLANE ONCE PRN PRN Reason: Consult order Home Medications Medication Instructions Recorded Confirmed Last Taken Type insulin glargine 35 unit SUBCUT 04/26/21 04/26/21 04/25/21 History 100 unit/mL (3 BEDTIME mL) subcutaneous pen rivaroxaban 20 mg 20 mg PO 04/26/21 04/26/21 04/25/21 History tablet (Xarelto) DAILY@1700 omeprazole 20 mg 20 mg PO DAILY 04/29/21 04/29/21 04/26/21 History capsule,delayed release Physical Exam Verdana 4l Vital Signs: Verdana 4d Verdana 4d Vital Signs: Verdana 4d Verdana 4Bd Last Vital Signs Verdana 4d Slate Roofer New 4d Slate Roofer New 4d Temp 98.9 F 04/26/21 20:24 Slate Roofer New 4d Pulse 95 04/26/21 20:24 Slate Roofer New 4d Resp 16 04/26/21 20:24 BP 124/68 04/26/21 20:24 Pulse Ox 98 04/26/21 20:24 BMI result Body Mass Index 29.3 Const: General: comfortable and no acute distress Orientation/consciousness: patient oriented x3 Neck: Neck: Yes no lymphadenopathy Resp: Auscultation: clear to auscultation bilaterally Cardio: Rhythm: regular rhythm GI: Palpation (GI): Soft to palpation, nontender and no guarding Neuro: General: patient oriented x3 Extrem: Other: right foot with open wounds, fibrinous exudates, areas of nonviable skin on the dorsum and lateral aspect, with thick eschar, dry gangrene of the 5th toe , some duskiness of the 3rd toe as well Results Results Labs: Short CBC 04/26/21 Range/Units 15:50 WBC 12.0 H (4.8-10.8) X10*3/uL Hgb 9.6 L (14.0-18.0) g/dl Hct 29.9 L (42.0-52.0) % Plt Count 722 H D (160-400) X10*3/uL BMP 04/26/21 15:50 Sodium 133 L Potassium 4.0 D Chloride 98 Carbon Dioxide 27 BUN 11 Creatinine 1.40 Calcium 7.4 L Liver Function 04/26/21 Range/Units 15:50 Total Bilirubin 0.3 (0.0-1.0) mg/dL AST 21 (5-37) U/L ALT 16 (0-40) U/L Alkaline Phosphatase 98 (39-117) U/L Albumin 2.3 L (3.5-5.0) g/dL Assessment and Plan (1) Diabetic foot infection: Status: Acute The patient has Dm foot infection with open wounds, nonviable tissue, thick fibrinous exudates and dry gangrene of the 5th toe. His Ct scan was read as suspicious for necrotizing soft tissue infection because of the presence of sucutaneous air, but this is due to his open wounds tracking to the subcutaneous tissue. He is not septic clinically and looks comfortable. I had explained to him and his that he needs aggressive debridement in the OR. We will have to hold his anticoagulant tx for a reasonable period of time as the debridement may require excision of deeper tissue. The patient and are aware that he may require amputation of the foot if he does not heal well. The patient had stated that he would like to save his foot as much as possible. I have discussed the patient with the Wound Clinic earlier and he may be a candidate for hyperbaric therapy after debridement for better chance of healing. I have consulted the Hospitalist in view of his multiple medical problems. I plan on consulting the vascular surgeon as well in view of this diabetic foot with a long history of smoking. Quality Stroke Does the patient have a stroke diagnosis?: No VTE Prior VTE?: No VTE Risk Level:: Medical - moderate - high VTE Device Contraindication: N/A - Device Ordered VTE Drug Contraindication: Treatment Not Indicated Procedures Date of Service Date of Service: 04/26/21
--- NOTE | 2021-04-26 21:54 | P.CONHOSP_ITS ---
History of Present Illness Data of Consult Service Date: 04/26/21 Primary Care Provider: Félix Carlton MD HPI Reason for consult: Diabetic foot infection consult requesting surgeon: Dr. Socrates Perez brief history: 56-year-old male with a past medical history of hypertension, hyperlipidemia, diabetes, recent admission to the hospital for possible HHS/diabetic foot infection was antibiotics; presented to the hospital today with a chief complaint of right foot diabetic foot infection/discharge. Patient reports that he has been having the foot infection for about 2 weeks; has been following with the wound clinic today when he went did this suggests been to go to the ER for further evaluation. Reports pus like discharge. Reports dark discoloration of the foot wounds as well as does done in black. Denies any pain-attributes to neuropathy. Denies any fever chills cough. Denies any chest pain or palpitations. Reports that he smokes cigarettes; review of all other systems is negative except mentioned above ER course: Per ER team patient noted to have diabetic foot infection with areas of necrosis, 2 necrosis; CT scan was done which showed a in the distal part, concer shayy for necrotizing fasciitis -patient was evaluated with General surgery-open that 80s secondary to the open trach on the bottom of the foot, less concern for necrotizing fasciitis; admitted to the general surgery service. Medicine team was consulted to manage patient's chronic medical conditions. [facility] Medical History COVID-19 Diabetic foot infection Hypertension Paroxysmal atrial fibrillation Type II diabetes mellitus Uncontrolled diabetes mellitus Family History Mother No problems noted. Father No problems noted. Surgical History No pertinent past surgical history Social History Household Members: Family Housing: House Unable to assess alcohol history related to: Refusing to respond Alcohol intake: current Alcohol intake frequency: a few times a week Patient Tobacco Use Status: Current everyday Tobacco user Tobacco use type: Cigarette Cigarette Packs Per Day: 1 Cigarettes Per Day: 20 e-Cigarette/Vaping Use: Never Used Second Hand Smoke Exposure: No Advance Directives: No Advance Directives Information Provided: No service: No Current occupational status: unemployed Cognitive needs: No Hearing needs: No Vision needs: No Meds Allergies Allergy/AdvReac Type Severity Reaction Status Date / Time No Known Allergies Allergy Verified 04/26/21 11:05 [No Known Allergies*] Active Medications: Current Medications Amlodipine Besylate (Amlodipine Besylate 10 Mg Tablet) 10 mg PO DAILY MICHELLE; Protocol Piperacillin Sod/Tazobactam (Sod 3.375 gm/ Sodium Chloride) 50 mls @ 100 mls/hr IV ONCE ONE Stop: 04/27/21 02:29 Sodium Chloride (Ns) 1,000 mls @ 100 mls/hr IVCONT .Q10H MICHELLE Insulin Glargine (Insulin Glargine,Hum.Rec.Anlog 100 Unit/Ml 10 Ml Vial) 35 unit SUBCUT BEDTIME MICHELLE Metoprolol Succinate (Metoprolol Succinate Er 100 Mg Tab.Er.24h) 100 mg PO DAILY MICHELLE; Protocol Pharmacy Consult (Consult Rx Perform Med Rec) 1 each MISCELLANE ONCE PRN PRN Reason: Consult order Sodium Chloride (0.9 % Sodium Chloride Flush 3 Ml Syringe) 3 ml IVFLUSH QSHIFT [facility] Home Medications Medication Instructions Recorded Confirmed Last Taken Type insulin glargine 35 unit SUBCUT 04/26/21 04/26/21 04/25/21 History 100 unit/mL (3 BEDTIME mL) subcutaneous pen rivaroxaban 20 mg 20 mg PO 04/26/21 04/26/21 04/25/21 History tablet (Xarelto) DAILY@1700 Physical Exam Verdana 4l Vital Signs and Narrative: Verdana 4d Verdana 4d Vital Signs: Verdana 4d Verdana 4Bd Last Vital Signs Verdana 4d Sheep Farm Worker New 4d Sheep Farm Worker New 4d Temp 98.9 F 04/26/21 20:24 Sheep Farm Worker New 4d Pulse 95 04/26/21 20:24 Sheep Farm Worker New 4d Resp 16 04/26/21 20:24 BP 124/68 04/26/21 20:24 Pulse Ox 98 04/26/21 20:24 BMI result Body Mass Index 29.3 Gen: Appears be in no acute distress HEENT: NCAT, Moist mucosa. Pulmonary: Vesicular breath sounds, fair air entry CVS: Normal S1-S2 Abdomen: BS+, Soft, Nontender Extremities: Warm well perfused; right foot has gangrenous 3rd and 5th toes; slowed of skin on the dorsum of the foot as well as plantar surface of the foot with necrotic areas; boggy feel on palpation, draining serosanguineous liquid; has a small open track on the bottom of the foot. Pictures shown below. Neuro: Alert and awake. Results Labs CBC and Chem 7: 04/26/21 15:50 04/26/21 15:50 Labs: Laboratory Results - last 24 hr 04/26/21 04/26/21 04/26/21 15:50 15:50 15:50 MCV 90.9 MCH 29.2 MCHC 32.1 RDW 14.0 Plt Count 722 H D MPV 9.3 L Immature Gran % (Auto) 0.4 Neut % (Auto) 75.2 H Lymph % (Auto) 15.5 L Smith % (Auto) 6.8 Eos % (Auto) 1.7 Baso % (Auto) 0.4 Lymph # (Auto) 1.9 Smith # (Auto) 0.8 Eos # (Auto) 0.2 Baso # (Auto) 0.1 Abs Immat Gran (auto) 0.05 H Absolute Neuts (auto) 9.0 H Absolute Nucleated RBC 0.000 Nucleated RBC % (auto) 0.0 ESR 105 H Anion Gap 12 Estim Creat Clear Calc 77.7 Estimated GFR 52 Random Glucose 190 H D Lactic Acid Calcium 7.4 L Total Bilirubin 0.3 AST 21 ALT 16 Alkaline Phosphatase 98 C-Reactive Protein 9.14 H Total Protein 7.9 D Albumin 2.3 L COVID-19 (BENNIE) COVID-19 Clin Com 04/26/21 04/26/21 19:42 19:42 MCV MCH MCHC RDW Plt Count MPV Immature Gran % (Auto) Neut % (Auto) Lymph % (Auto) Smith % (Auto) Eos % (Auto) Baso % (Auto) Lymph # (Auto) Smith # (Auto) Eos # (Auto) Baso # (Auto) Abs Immat Gran (auto) Absolute Neuts (auto) Absolute Nucleated RBC Nucleated RBC % (auto) ESR Anion Gap Estim Creat Clear Calc Estimated GFR Random Glucose Lactic Acid 1.8 Calcium Total Bilirubin AST ALT Alkaline Phosphatase C-Reactive Protein Total Protein Albumin COVID-19 (BENNIE) Negative COVID-19 Clin Com See Note Imaging Radiologist's Impressions: Impressions Foot CT 04/26/21 19:37 IMPRESSION: Findings concerning for a necrotizing infection with osteomyelitis in the fifth toe and cuneiforms. This critical result was discussed with Nubia Manuel at 04/26/2021 8:53 PM and it was ascertained that the content and urgency of the report was understood at the time of direct communication. Assessment and Plan (1) Diabetic foot infection: Status: Acute (2) Type II diabetes mellitus: Status: Acute (3) Hypertension: Status: Acute Plan 56-year-old male with a past medical history of hypertension, hyperlipidemia, diabetes, recent admission to the hospital for possible HHS/diabetic foot infection was antibiotics; presented to the hospital today with a chief complaint of right foot diabetic foot infection/discharge. Diabetic foot infection / necrosis: Plan as per general surgery team. Continued on IV vancomycin and Zosyn. Id consult diabetes: Will give the patient on insulin sliding scale and Lantus 20 units. Monitor fingerstick glucose in the discharge needed History of hypertension: Hold home amlodipine nowgiven sepsis History of AFib: Rate controlled. Home Xarelto on hold in anticipation for procedure in the morning DVT prophylaxis: Per surgery team Code status: Full code
--- NOTE | 2021-04-26 22:00 | PC.NURSE ---
nurse to nurse report given to Susy LEYVA in ED overflow
--- NOTE | 2021-04-26 22:17 | PHA.PROG ---
Admission Date/Time: April 26, 2021 21:24 Indication: Skin and soft tissue Weight in k.594 kg Adjusted body weight in K.338kg [place] body weight in K.5kg Obesity Dosing Indication % IBW: Serum Creatinine - Last 168 Hours 04/26/21 15:50 Creatinine 1.40 Estimated CrCl and GFR - Last 168 Hours 04/26/21 15:50 Estim Creat Clear Calc 77.7 Estimated GFR 52 Vancomycin Loading Dose: 1500mg Current Vancomycin Dosing Regimen: 1000mg Q12H Vancomycin Monitoring using AUC goal of 400 - 600 range with trough as surrogate marker: Predicted AUC of 541mg/L with predicted trough of 18.5mg/L Date and Time for next Vancomycin Level to be drawn: Trough to be drawn on 04/28/21 @0600 Pharmacist Comments on Vancomycin Plan: Vancomycin dosing will take advantage of [employer] as a clinical decision support tool that uses Bayesian modeling to calculate individual patient's pharmacokinetic parameters and forecast the patient's drug concentration time course with the target goal AUC 24 range of 400 - 600 mg/L/hr.
[2021-04-26 22:33] VITALS: BP 150/71; PULSE 100; RESP 18; TEMP 36.6; O2SAT 97
[2021-04-26] MEDS: 0.9 % Sodium Chloride 1,000 ML 100 ML IVCONT (23:01)
[2021-04-27] VITALS (12 sets, daily range): BP systolic 110–132; BP diastolic 58–67; PULSE 80–99; RESP 15–25; TEMP 36.4–37.1; O2SAT 92–99; BMI 33.6
[2021-04-27] MEDS: Piperacillin Sodium/Tazobactam 3.375 GM in 0.9 % Sodium Chloride 50 ML IV ×4 (02:18→20:14)
--- NOTE | 2021-04-27 05:21 | PC.NURSE ---
assisting primary RN- pt to floor on hospital bed, sent in stable condition w/ all belongings
[2021-04-27 07:36] LABS: Glucose, Whole Blood 238 mg/dL (60-115)
[2021-04-27] MEDS: vancomycin HCL 1,000 MG in 0.9 % Sodium Chloride 250 ML 270 MG IV ×2 (08:20→20:52)
[2021-04-27] MEDS: Insulin Lispro 100 UNIT/ML 3 ML VIAL SUBCUT ×4 (08:23→20:15)
[2021-04-27] MEDS: amLODIPine Besylate 10 MG TABLET PO (08:24)
[2021-04-27] MEDS: Metoprolol Succinate ER 100 MG TAB.ER.24H PO (08:25)
[2021-04-27] MEDS: 0.9 % Sodium Chloride 1,000 ML 100 ML IVCONT (08:26)
--- NOTE | 2021-04-27 09:34 | P.PNIM_ITS ---
Subjective Subjective Date of Service: 04/27/21 Interval History: F/u on med consult for diabetic management in light of diabetic foot ulcer Physical Exam Verdana 4l Vital Signs: Verdana 4d Verdana 4d Vital Signs: Verdana 4d Verdana 4Bd Last Vital Signs Verdana 4d Entry Level Installation Technician New 4d Entry Level Installation Technician New 4d Temp 97.6 F 04/27/21 07:27 Entry Level Installation Technician New 4d Pulse 99 04/27/21 07:27 Entry Level Installation Technician New 4d Resp 17 04/27/21 07:27 BP 126/64 04/27/21 07:27 Pulse Ox 94 04/27/21 07:27 BMI result Body Mass Index 33.6 Const: Other: General: AO X 3, no acute distress Resp: CTA bilateral CVS: S1,S2,RRR GI: +BS, NT, no distention Skin: See pictures elsewhere Neuro: motor grossly intact Psych: appropriate affect Objective Data Active Medications Amlodipine Besylate (Amlodipine Besylate 10 Mg Tablet) 10 mg PO DAILY [facility]; Protocol Last Admin: 04/27/21 08:24 Dose: 10 mg Documented by: SIXTO Dextrose (Dextrose 50 % 25 Gm/50 Ml Syringe) 25 gm IVPUSH Q15M PRN; Protocol PRN Reason: per Hypoglycemia Standing Ord. Glucose (Glucose Gel 15 Gm Gel..Gram.) 15 gm PO Q15M PRN; Protocol PRN Reason: per Hypoglycemia Standing Ord. Sodium Chloride (Ns) 1,000 mls @ 100 mls/hr IVCONT .Q10H [facility] Last Admin: 04/27/21 08:26 Dose: 100 mls/hr Documented by: SIXTO Vancomycin HCl 1,000 mg/ (Sodium Chloride) 270 mls @ 270 mls/hr IV Q12H [facility] Last Infusion: 04/27/21 09:29 Dose: 0 mls/hr Documented by: SIXTO Piperacillin Sod/Tazobactam (Sod 3.375 gm/ Sodium Chloride) 50 mls @ 100 mls/hr IV Q6H [facility] Last Infusion: 04/27/21 08:28 Dose: 0 mls/hr Documented by: SIXTO Insulin Glargine (Insulin Glargine,Hum.Rec.Anlog 100 Unit/Ml 10 Ml Vial) 20 unit SUBCUT BEDTIME [facility] Insulin Human Lispro (Insulin Lispro 100 Unit/Ml 3 Ml Vial) 0 unit SUBCUT QIDACHS [facility]; Protocol Last Admin: 04/27/21 08:23 Dose: 4 unit Documented by: SIXTO Metoprolol Succinate (Metoprolol Succinate Er 100 Mg Tab.Er.24h) 100 mg PO DAILY [facility]; Protocol Last Admin: 04/27/21 08:25 Dose: 100 mg Documented by: SIXTO Pharmacy Consult (Consult Rx Perform Med Rec) 1 each MISCELLANE ONCE PRN PRN Reason: Consult order Pharmacy Consult (Consult Rx Vancomycin Dosing) 1 each MISCELLANE DAILY PRN PRN Reason: Consult order Sodium Chloride (0.9 % Sodium Chloride Flush 3 Ml Syringe) 3 ml IVFLUSH QSHIFT [facility] Last Admin: 04/27/21 07:32 Dose: Not Given Documented by: SIXTO Non-Admin Reason: IV Running Labs CBC & Chem 7: 04/26/21 15:50 04/26/21 15:50 Labs: Laboratory Results - last 24 hr 04/26/21 04/26/21 04/26/21 15:50 15:50 15:50 MCV 90.9 MCH 29.2 MCHC 32.1 RDW 14.0 Plt Count 722 H D MPV 9.3 L Immature Gran % (Auto) 0.4 Neut % (Auto) 75.2 H Lymph % (Auto) 15.5 L [place] % (Auto) 6.8 Eos % (Auto) 1.7 Baso % (Auto) 0.4 Lymph # (Auto) 1.9 [place] # (Auto) 0.8 Eos # (Auto) 0.2 Baso # (Auto) 0.1 Abs Immat Gran (auto) 0.05 H Absolute Neuts (auto) 9.0 H Absolute Nucleated RBC 0.000 Nucleated RBC % (auto) 0.0 ESR 105 H Anion Gap 12 Estim Creat Clear Calc 77.7 Estimated GFR 52 POC Glucose Random Glucose 190 H D Lactic Acid Calcium 7.4 L Total Bilirubin 0.3 AST 21 ALT 16 Alkaline Phosphatase 98 C-Reactive Protein 9.14 H Total Protein 7.9 D Albumin 2.3 L COVID-19 (BENNIE) COVID-19 Clin Com 04/26/21 04/26/21 04/27/21 19:42 19:42 07:16 MCV MCH MCHC RDW Plt Count MPV Immature Gran % (Auto) Neut % (Auto) Lymph % (Auto) [place] % (Auto) Eos % (Auto) Baso % (Auto) Lymph # (Auto) [place] # (Auto) Eos # (Auto) Baso # (Auto) Abs Immat Gran (auto) Absolute Neuts (auto) Absolute Nucleated RBC Nucleated RBC % (auto) ESR Anion Gap Estim Creat Clear Calc Estimated GFR POC Glucose 238 H Random Glucose Lactic Acid 1.8 Calcium Total Bilirubin AST ALT Alkaline Phosphatase C-Reactive Protein Total Protein Albumin COVID-19 (BENNIE) Negative COVID-19 Clin Com See Note Assessment and Plan (1) Hypertension: Status: Acute (2) Diabetic foot infection: Status: Acute (3) Type II diabetes mellitus: Status: Acute Plan 56-year-old male with a past medical history of hypertension, hyperlipidemia, diabetes, recent admission to the hospital for possible HHS/diabetic foot infection was antibiotics; presented to the hospital today with a chief complaint of right foot diabetic foot infection/discharge.? #Diabetic foot infection / necrosis/Sepsis -Zosyn/Vanco, probable debridment in OR #Diabetes--Uncontrolled -continue Lantus, SSI, ADA and adjust med as needed #HTN--Controlled, continue Norvasc tomorrow #Chronic AFIB--controlled, Xarelto on hold for surgery ? Quality Stroke Does the patient have a stroke diagnosis?: No VTE Prior VTE?: No VTE Risk Level:: Medical - moderate - high VTE Device Contraindication: Treatment Not Indicated VTE Drug Contraindication: Treatment Not Indicated
[2021-04-27 10:15] LABS: Creatinine Clr Calc Pharmacy 94.3; Estimated Glomerular Filt Rate > 60
[2021-04-27] MEDS: Lactated Ringers 1,000 ML 100 ML IVCONT ×2 (10:15→15:58)
[2021-04-27 10:16] LABS: Glucose, Whole Blood 221 mg/dL (60-115)
--- NOTE | 2021-04-27 10:50 | P.CONAN_ITS ---
[facility] Active Problems Active Problems: All Active Problems (Updated 04/27/21 @ 00:02 by Carlie [place]) Osteomyelitis (Acute) Hypertension (Acute) Diabetic foot infection (Acute) Type II diabetes mellitus (Acute) Hospital discharge follow-up (Acute) Uncontrolled diabetes mellitus (Acute) Paroxysmal atrial fibrillation (Acute) Past Medical History Medical History COVID-19 Diabetic foot infection Hypertension Paroxysmal atrial fibrillation Type II diabetes mellitus Uncontrolled diabetes mellitus Family History Family History Mother No problems noted. Father No problems noted. Family history of problems with anesthesia: No Surgical History Surgical History No pertinent past surgical history History of Problems with Anesthesia: No Social History Social History Household Members: Family Housing: House Do you presently have visiting nurse or other home services: No Unable to assess alcohol history related to: Refusing to respond Alcohol intake: current Alcohol intake frequency: does not drink Patient Tobacco Use Status: Never used Tobacco Tobacco use type: Cigarette Cigarette Packs Per Day: 1 Cigarettes Per Day: 20.0 Smoked in Last 30 Days: No e-Cigarette/Vaping Use: Never Used Patient Interested in Nicotine Replacement: No Patient Given Instructions on How to Stop Smoking: No Second Hand Smoke Exposure: No Use of substances other than those prescribed or required for medical reasons: No Currently Displaying Signs/Symptoms of Drug Intoxication Withdrawal: No Have you been hit, kicked, punched, or otherwise hurt by someone within the past year? If so, by whom?: No Do you feel safe in your current relationship?: No Is there a partner from a previous relationship who is making you feel unsafe now?: No Are you DNR?: No Advance Directives: No Advance Directives Information Provided: No Advance Directives on File: No Do you have thoughts of harming others: None Do you have a plan to hurt others: No Plan Recently lost weight without trying: No How much weight loss: Not applicable Eating poorly because of decreased appetite: No Nutrition screen score: 0 Nutrition Risks: No Nutritional Risk service: No Current occupational status: unemployed Cognitive needs: No Hearing needs: No Vision needs: No Meds Allergies Allergy/AdvReac Type Severity Reaction Status Date / Time No Known Allergies Allergy Verified 04/26/21 11:05 [No Known Allergies*] Active Medications: Current Medications Amlodipine Besylate (Amlodipine Besylate 10 Mg Tablet) 10 mg PO DAILY [facility]; Protocol Last Admin: 04/27/21 08:24 Dose: 10 mg Documented by: Dextrose (Dextrose 50 % 25 Gm/50 Ml Syringe) 25 gm IVPUSH Q15M PRN; Protocol PRN Reason: per Hypoglycemia Standing Ord. Glucose (Glucose Gel 15 Gm Gel..Gram.) 15 gm PO Q15M PRN; Protocol PRN Reason: per Hypoglycemia Standing Ord. Sodium Chloride (Ns) 1,000 mls @ 100 mls/hr IVCONT .Q10H [facility] Last Admin: 04/27/21 08:26 Dose: 100 mls/hr Documented by: Vancomycin HCl 1,000 mg/ (Sodium Chloride) 270 mls @ 270 mls/hr IV Q12H [facility] Last Infusion: 04/27/21 09:29 Dose: Infused Documented by: Piperacillin Sod/Tazobactam (Sod 3.375 gm/ Sodium Chloride) 50 mls @ 100 mls/hr IV Q6H [facility] Last Infusion: 04/27/21 08:28 Dose: Infused Documented by: Insulin Glargine (Insulin Glargine,Hum.Rec.Anlog 100 Unit/Ml 10 Ml Vial) 20 unit SUBCUT BEDTIME [facility] Insulin Human Lispro (Insulin Lispro 100 Unit/Ml 3 Ml Vial) 0 unit SUBCUT Q IDACHS [facility]; Protocol Last Admin: 04/27/21 08:23 Dose: 4 unit Documented by: Metoprolol Succinate (Metoprolol Succinate Er 100 Mg Tab.Er.24h) 100 mg PO DAILY [facility]; Protocol Last Admin: 04/27/21 08:25 Dose: 100 mg Documented by: Pharmacy Consult (Consult Rx Perform Med Rec) 1 each MISCELLANE ONCE PRN PRN Reason: Consult order Pharmacy Consult (Consult Rx Vancomycin Dosing) 1 each MISCELLANE DAILY PRN PRN Reason: Consult order Sodium Chloride (0.9 % Sodium Chloride Flush 3 Ml Syringe) 3 ml IVFLUSH QSHIFT [facility] Last Admin: 04/27/21 07:32 Dose: Not Given Documented by: Home Medications Medication Instructions Recorded Confirmed Last Taken Type insulin glargine 35 unit SUBCUT 04/26/21 04/26/21 04/25/21 History 100 unit/mL (3 BEDTIME mL) subcutaneous pen rivaroxaban 20 mg 20 mg PO 04/26/21 04/26/21 04/25/21 History tablet (Xarelto) DAILY@1700 Exam Exam Date and Time: April 27, 2021 1050 Height,Weight and Vital Signs: Height 6 ft 3 in Weight 122 kg Last Vital Signs Temp 97.7 F 04/27/21 10:07 Pulse 95 04/27/21 10:07 Resp 16 04/27/21 10:07 BP 128/67 04/27/21 10:07 Pulse Ox 95 04/27/21 10:07 Pertinent Lab Results Pertinent Lab Results: Laboratory Tests 04/26/21 04/26/21 04/26/21 15:50 15:50 15:50 WBC 12.0 H RBC 3.29 L Hgb 9.6 L Hct 29.9 L MCV 90.9 MCH 29.2 MCHC 32.1 RDW 14.0 Plt Count 722 H D MPV 9.3 L Immature Gran % (Auto) 0.4 Neut % (Auto) 75.2 H Lymph % (Auto) 15.5 L [place] % (Auto) 6.8 Eos % (Auto) 1.7 Baso % (Auto) 0.4 Lymph # (Auto) 1.9 [place] # (Auto) 0.8 Eos # (Auto) 0.2 Baso # (Auto) 0.1 Abs Immat Gran (auto) 0.05 H Absolute Neuts (auto) 9.0 H Absolute Nucleated RBC 0.000 Nucleated RBC % (auto) 0.0 ESR 105 H Sodium 133 L Potassium 4.0 D Chloride 98 Carbon Dioxide 27 Anion Gap 12 BUN 11 Creatinine 1.40 Estim Creat Clear Calc 77.7 Estimated GFR 52 POC Glucose Random Glucose 190 H D Lactic Acid Calcium 7.4 L Total Bilirubin 0.3 AST 21 ALT 16 Alkaline Phosphatase 98 C-Reactive Protein 9.14 H Total Protein 7.9 D Albumin 2.3 L COVID-19 (BNENIE) COVID-19 Clin Com 04/26/21 04/26/21 04/27/21 19:42 19:42 07:16 WBC RBC Hgb Hct MCV MCH MCHC RDW Plt Count MPV Immature Gran % (Auto) Neut % (Auto) Lymph % (Auto) [place] % (Auto) Eos % (Auto) Baso % (Auto) Lymph # (Auto) [place] # (Auto) Eos # (Auto) Baso # (Auto) Abs Immat Gran (auto) Absolute Neuts (auto) Absolute Nucleated RBC Nucleated RBC % (auto) ESR Sodium Potassium Chloride Carbon Dioxide Anion Gap BUN Creatinine Estim Creat Clear Calc Estimated GFR POC Glucose 238 H Random Glucose Lactic Acid 1.8 Calcium Total Bilirubin AST ALT Alkaline Phosphatase C-Reactive Protein Total Protein Albumin COVID-19 (BENNIE) Negative COVID-19 Clin Com See Note 04/27/21 04/27/21 09:44 10:12 WBC RBC Hgb Hct MCV MCH MCHC RDW Plt Count MPV Immature Gran % (Auto) Neut % (Auto) Lymph % (Auto) [place] % (Auto) Eos % (Auto) Baso % (Auto) Lymph # (Auto) [place] # (Auto) Eos # (Auto) Baso # (Auto) Abs Immat Gran (auto) Absolute Neuts (auto) Absolute Nucleated RBC Nucleated RBC % (auto) ESR Sodium Potassium Chloride Carbon Dioxide Anion Gap BUN Creatinine 1.23 Estim Creat Clear Calc 94.3 Estimated GFR > 60 POC Glucose 221 H Random Glucose Lactic Acid Calcium Total Bilirubin AST ALT Alkaline Phosphatase C-Reactive Protein Total Protein Albumin COVID-19 (BENNIE) COVID-19 Clin Com Airway Mallampati Class: III TM Dist: >3cm Neck ROM: Full Loose/Missing/Broken Teeth: Upper and Lower Assessment and Plan Assessment Anesthesia Assessment: Anesthesia Plan Discussed and Chart Reviewed Final Anesthetic Review Family History of Problems with Anesthesia: No History of Problems with Anesthesia: No NPO: Yes ASA Class: III and Emergency Final Preanesthetic Review: Meds/Allgs Chart Reviewed, Consent Obtained/Reviewed and Anes Risks/Benef Reviewed Patient Risk: Intermediate Procedure Risk: Low Anesthetic Plan Anesthetic Plan: GA Disposition: Standard PACU and Inp. Admit - Standard Bed
--- NOTE | 2021-04-27 11:08 | HE.PHANOTE ---
Vancomycin Dosing Addendum Patient reviewed, continue with same regimen. Trough due 04/28/21 @0600
--- NOTE | 2021-04-27 11:57 | P.OP_ITS ---
Operative Note Operative Note Date of Service: 04/27/21 Narrative: Preop diagnosis: DM foot, right, with eschar, open wound, dry gangrene of the 5th toe Postop diagnosis: DM foot, right with eschar, open wound, dry gangrene of the 5th toe, nonviable skin and subcutaneous tissue Procedure: Excisional debridement, right foot; debrided areas measured 12 x 12 cm the dorsum, 11 x 4 cm on the plantar aspect and 6 x 3.5 cm on the proximal dorso-lateral area Surgeon: Chris Crowell MD The patient is a 56-year-old male, with long history of diabetes, who was sent to the ER by the [facility] because of a worsening diabetic foot on the right, eschar, drainage, thick fibrinous exudates, we and necrotic skin And subcutaneous tissue. I had explained to him that because of this, he we needed to do aggressive debridement. of multiple areas of his right foot. He had a thick eschar at the dorsum of the right foot, another area on the plantar aspect and a separate area proximally on the foot towards the dorsal lateral aspect. He had dry gangrene of the 5th toe which was if I would. There was duskiness of the 3rd toe. He understood the technique of external debridement. He was aware of the risks including but not limited to bleeding, infections, postop pain, the need for repeated procedures, as well as the benefits and alternatives He also understood that may require amputation of the foot if debridement is unsuccessful with clearing the foot of nonviable tissue. Furthermore, there is dry gangrene of the 5th toe so this may not survive at all but we will let this demarcate further. There is duskiness as well as the 3rd toe and this may or amputation as well down the line. He had stated that he wanted to save his right foot as much as possible. He was willing to proceed with repeated debridements to achieve this Was brought to the operating room and placed supine on His hospital bed under general anesthesia via laryngeal mask airway. The right foot was prepped and draped in the usual sterile fashion. A surgical time-out was done. The patient was on scheduled antibiotics. I then proceeded to sharply excise the thick eschar overlying the dorsum of the right foot. Used the curved Barrera to achieve this. I removed full-thickness sk in and thick subcutaneous fat down to viable tissue. This area measured 12 x 12 cm. There was note of a lot of fibrinous exudates and in this area. I took cultures of this therefore and sent this as a specimen. I debrided as much of the nonviable skin and soft tissue area including the 5th toe. Most of the 5th toe had dry gangrene so we left this in place. Is note of a separate area on the plantar aspect which had a thick eschar with fibrous exudate as well. I sharply debrided this with the full-thickness of the skin and subcutaneous tissue down to the tendons. This area measured 11 x 4 cm. this was also achieved with a curved Barrera scissors There was a separate area on the proximal foot on near the dorsal lateral aspect which was all debrided of thick eschar and full-thickness skin subcutaneous tissue. This measured about 6 x 3.5 cm I bluntly debrided the rest of the wound surfaces to remove fibrinous debris. I then used the Pulsavac ceramic design engineer to further clean all the surfaces including the skin. I made sure that we had opened up all tracks through the soft tissue of the foot. I then applied wet to dry dressings using normal saline and gauze. I applied dry dressings on top and wrapped the foot with Kerlix roll. The procedure was then completed. The patient tolerated The procedure well. There were no complications noted. Initial and final counts of sponges and instruments were correct. estimated blood loss was about 50 cc The patient was extubated without difficulty and transferred to the recovery room with stable vital signs.
[2021-04-27 14:01] LABS: Glucose, Whole Blood 179 mg/dL (60-115)
--- NOTE | 2021-04-27 14:13 | MHC.CM.PN ---
Addendum entered by Akila Aquino 04/27/21 14:25: PATIENT ASKS FOR A REFERRAL TO [facility] NOW [facility] Original Note: PATIENT LIVES WITH A ROOMMATE HE HAS A WALKER AND A CANE IN THE HOME PATIENT IS ACTIVE WITH [facility] HE IS NOT COVID-19 VACCINATED AND AGREEABLE TO RECEIVING HIS FIRST DOSE HERE IF IT IS ABLE TO BE ARRANGED. CASE MANAGEMENT TO UPDATE WITH PROGRESS TOWARDS. NO HPC ON FILE. PATIENT WILL CONSIDER AN AGENT AND ASK FOR CASE MANAGEMENT IF HE CHOOSES TO DO SO.
--- NOTE | 2021-04-27 15:00 | PM.EVENT ---
Event Note Date of Service: 04/27/21 Event Note: Seen postop Underwent excisional debridement of diabetic foot earlier Says he is comfortable Dressings dry Stable vital signs Plan change dressings tomorrow with wet to dry Elevate right leg
[2021-04-27 15:55] LABS: Glucose, Whole Blood 252 mg/dL (60-115)
[2021-04-27] MEDS: Lactated Ringers 1,000 ML 60 ML IVCONT (15:59)
[2021-04-27 19:55] LABS: Glucose, Whole Blood 241 mg/dL (60-115)
[2021-04-27] MEDS: Insulin Glargine,Hum.rec.anlog 100 UNIT/ML 10 ML VIAL 20 UNIT SUBCUT (20:15)
[2021-04-27] MEDS: 0.9 % Sodium Chloride Flush 3 ML SYRINGE IVFLUSH (20:15)
[2021-04-28] VITALS (7 sets, daily range): BP systolic 118–132; BP diastolic 58–72; PULSE 89–97; RESP 17–19; TEMP 36.2–37.1; O2SAT 90–96
[2021-04-28] MEDS: Piperacillin Sodium/Tazobactam 3.375 GM in 0.9 % Sodium Chloride 50 ML IV ×4 (02:35→19:19)
[2021-04-28 06:43] LABS: Estimated Glomerular Filt Rate 50
[2021-04-28 06:48] LABS: Vancomycin Trough 13.9 mcg/mL (10.0-20.0)
--- NOTE | 2021-04-28 06:54 | HE.PHANOTE ---
Vancomycin Dosing Addendum Patient reviewed, continue current vancomycin regimen of 1000 mg q12h. Trough today 13.9. Scr fluctuating. Next trough 04/29/21 @0600.
[2021-04-28] MEDS: amLODIPine Besylate 10 MG TABLET PO (08:01)
[2021-04-28] MEDS: Metoprolol Succinate ER 100 MG TAB.ER.24H PO (08:01)
[2021-04-28] MEDS: Insulin Lispro 100 UNIT/ML 3 ML VIAL SUBCUT ×4 (08:01→20:09)
[2021-04-28 08:03] LABS: Glucose, Whole Blood 168 mg/dL (60-115)
[2021-04-28] MEDS: vancomycin HCL 1,000 MG in 0.9 % Sodium Chloride 250 ML 270 MG IV ×2 (08:41→19:58)
--- NOTE | 2021-04-28 09:32 | P.PNIM_ITS ---
Subjective Subjective Date of Service: 04/28/21 Interval History: F/u on med consult for diabetic management in light of diabetic foot ulcer Physical Exam Verdana 4l Vital Signs: Verdana 4d Verdana 4d Vital Signs: Verdana 4d Verdana 4Bd Last Vital Signs Verdana 4d Powdered Metal Supervisor New 4d Powdered Metal Supervisor New 4d Temp 97.7 F 04/28/21 07:35 Powdered Metal Supervisor New 4d Pulse 89 04/28/21 07:35 Powdered Metal Supervisor New 4d Resp 19 04/28/21 07:35 BP 122/71 04/28/21 07:35 Pulse Ox 92 04/28/21 07:35 BMI result Body Mass Index 33.6 Const: Other: General: AO X 3, no acute distress Resp: CTA bilateral CVS: S1,S2,RRR GI: +BS, NT, no distention Skin: See pictures elsewhere Neuro: motor grossly intact Psych: appropriate affect Objective Data Active Medications Amlodipine Besylate (Amlodipine Besylate 10 Mg Tablet) 10 mg PO DAILY [facility]; Protocol Last Admin: 04/28/21 08:01 Dose: 10 mg Documented by: COTEMA Dextrose (Dextrose 50 % 25 Gm/50 Ml Syringe) 25 gm IVPUSH Q15M PRN; Protocol PRN Reason: per Hypoglycemia Standing Ord. Fentanyl (Fentanyl Citrate/Pf 100 Mcg/2 Ml Vial) 50 mcg IVPUSH Q5M PRN; Protocol PRN Reason: Pain, Severe (Pain Scale 7-10) Glucose (Glucose Gel 15 Gm Gel..Gram.) 15 gm PO Q15M PRN; Protocol PRN Reason: per Hypoglycemia Standing Ord. Vancomycin HCl 1,000 mg/ (Sodium Chloride) 270 mls @ 270 mls/hr IV Q12H [facility] Last Admin: 04/28/21 08:41 Dose: 270 mls/hr Documented by: COTEMA Piperacillin Sod/Tazobactam (Sod 3.375 gm/ Sodium Chloride) 50 mls @ 100 mls/hr IV Q6H [facility] Last Infusion: 04/28/21 08:40 Dose: 0 mls/hr Documented by: COTEMA Promethazine HCl 12.5 mg/ (Sodium Chloride) 50.5 mls @ 202 mls/hr IV ONCE PRN PRN Reason: Nausea and Vomiting Lactated Ringer's (Lr) 1,000 mls @ 60 mls/hr IVCONT .[id number] [facility] Last Infusion: 04/27/21 15:59 Dose: 100 mls/hr Documented by: SIXTO Insulin Glargine (Insulin Glargine,Hum.Rec.Anlog 100 Unit/Ml 10 Ml Vial) 20 unit SUBCUT BEDTIME [facility] Last Admin: 04/27/21 20:15 Dose: 20 unit Documented by: MONIE Insulin Human Lispro (Insulin Lispro 100 Unit/Ml 3 Ml Vial) 0 unit SUBCUT QIDACHS [facility]; Protocol Last Admin: 04/28/21 08:01 Dose: 2 unit Documented by: COTFRANCISCO Metoprolol Succinate (Metoprolol Succinate Er 100 Mg Tab.Er.24h) 100 mg PO DAILY [facility]; Protocol Last Admin: 04/28/21 08:01 Dose: 100 mg Documented by: MENA Morphine Sulfate (Morphine Sulfate 2 Mg/Ml Cartridge) 2 mg IVPUSH Q4H PRN; Protocol PRN Reason: Pain, Severe (Pain Scale 7-10) Ondansetron HCl (Ondansetron Hcl 4 Mg/2 Ml Vial) 4 mg IVPUSH ONCE PRN PRN Reason: Nausea and Vomiting Oxycodone HCl (Oxycodone Hcl Immed Release 5 Mg Tablet) 5 mg PO ONCE PRN PRN Reason: Pain, Severe (Pain Scale 7-10) Oxycodone HCl (Oxycodone Hcl Immed Release 5 Mg Tablet) 10 mg PO Q4H PRN PRN Reason: Pain, Moderate (Pain Scale 4-6 Pharmacy Consult (Consult Rx Perform Med Rec) 1 each MISCELLANE ONCE PRN PRN Reason: Consult order Pharmacy Consult (Consult Rx Vancomycin Dosing) 1 each MISCELLANE DAILY PRN PRN Reason: Consult order Sodium Chloride (0.9 % Sodium Chloride Flush 3 Ml Syringe) 3 ml IVFLUSH QSHIFT [facility] Last Admin: 04/28/21 07:11 Dose: Not Given Documented by: MENA Non-Admin Reason: IV Running Labs CBC & Chem 7: 04/26/21 15:50 04/28/21 06:06 Labs: Laboratory Results - last 24 hr 04/27/21 04/27/21 04/27/21 09:44 10:12 13:55 Estim Creat Clear Calc 94.3 Estimated GFR > 60 POC Glucose 221 H 179 H Vancomycin Trough 04/27/21 04/27/21 04/28/21 15:36 19:04 06:06 Estim Creat Clear Calc Estimated GFR POC Glucose 252 H 241 H Vancomycin Trough 13.9 04/28/21 04/28/21 06:06 07:33 Estim Creat Clear Calc 80.0 Estimated GFR 50 POC Glucose 168 H Vancomycin Trough Microbiology Microbiology Results: Microbiology 04/26/21 19:42 Blood Culture - Preliminary Blood - Venous No growth after 24 hours. 04/26/21 18:39 Blood Culture - Preliminary Blood - Venous No growth after 24 hours. 04/27/21 Unknown Gram Stain - Final Foot Right Assessment and Plan (1) Hypertension: Status: Acute (2) Diabetic foot infection: Status: Acute (3) Type II diabetes mellitus: Status: Acute Plan 56-year-old male with a past medical history of hypertension, hyperlipidemia, diabetes, recent admission to the hospital for possible HHS/diabetic foot infection was antibiotics; presented to the hospital today with a chief complaint of right foot diabetic foot infection/discharge.? #Diabetic foot infection / necrosis/Sepsis s/p debridment -continue Zosyn/Vanco, -Angiogram by Vascular on Monday 05/01 #Diabetes--Uncontrolled -continue Lantus, SSI, ADA and adjust med as needed #HTN--Controlled, continue Norvasc tomorrow #Chronic AFIB--controlled, Xarelto on hold for surgery ? Quality Stroke Does the patient have a stroke diagnosis?: No VTE Prior VTE?: No VTE Risk Level:: Medical - moderate - high VTE Device Contraindication: Treatment Not Indicated VTE Drug Contraindication: Treatment Not Indicated
--- NOTE | 2021-04-28 09:45 | P.CONGS_ITS ---
History of Present Illness Consult details Consult date: 04/28/21 Reason for consult: wound care Narrative: 56-year-old gentleman with a history of smoking and diabetes presented to the hospital with a nonhealing right foot ulcer. He had gangrene and necrosis of t he 3rd toe. This had been progressing for sometime. He now presents to us for vascular evaluation. Of note [facility] and was sent in for admission. Review of Systems Verdana 4l Review of Systems: Yes all other systems are reviewed and Verdana 4d are negative Verdana 4l Constitutional: Verdana 4d Constitutional: Verdana 4d Verdana 4d Reports no additional constitutional complaints Verdana 4l ENT: Verdana 4d Reports Normal hearing present Verdana 4l Cardiovascular: Verdana 4d Cardiovascular: Verdana 4d Verdana 4d Denies chest pain, Denies chest pain at rest, Denies chest pain with activity and Denies pedal edema Verdana 4l Respiratory: Verdana 4d Verdana 4d Respiratory: Verdana 4d Denies cough Verdana 4l Gastrointestinal: Verdana 4d Gastrointestinal: Verdana 4d Verdana 4d Denies abdominal pain Verdana 4l Musculoskeletal: Verdana 4d Musculoskeletal: Verdana 4d Verdana 4d Denies abnormal gait, Denies muscle cramps and Denies radiating pain into limb Verdana 4l Integumentary/Breasts: Verdana 4d Skin/Breast: Verdana 4d Verdana 4d Denies skin ulcer and Denies wounds Verdana 4l Neurologic: Verdana 4d Reports Normal hearing present and Denies abnormal gait Verdana 4l Psychiatric: Verdana 4d Verdana 4d Psychiatric: Verdana 4d Reports no additional psychiatric complaints PMFSH Past Medical History Medical History COVID-19 Diabetic foot infection Hypertension Paroxysmal atrial fibrillation Type II diabetes mellitus Uncontrolled diabetes mellitus Family History Family History Mother No problems noted. Father No problems noted. Surgical History Surgical History No pertinent past surgical history Social History Social History Household Members: Family Housing: House Do you presently have visiting nurse or other home services: No Unable to assess alcohol history related to: Refusing to respond Alcohol intake: current Alcohol intake frequency: does not drink Patient Tobacco Use Status: Never used Tobacco Tobacco use type: Cigarette Cigarette Packs Per Day: 1 Cigarettes Per Day: 20.0 e-Cigarette/Vaping Use: Never Used Second Hand Smoke Exposure: No service: No Current occupational status: unemployed Cognitive needs: No Hearing needs: No Vision needs: No Meds Allergies Allergy/AdvReac Type Severity Reaction Status Date / Time No Known Allergies Allergy Verified 04/26/21 11:05 [No Known Allergies*] Active Medications: Current Medications Amlodipine Besylate (Amlodipine Besylate 10 Mg Tablet) 10 mg PO DAILY [facility]; Protocol Last Admin: 04/28/21 08:01 Dose: 10 mg Documented by: Dextrose (Dextrose 50 % 25 Gm/50 Ml Syringe) 25 gm IVPUSH Q15M PRN; Protocol PRN Reason: per Hypoglycemia Standing Ord. Fentanyl (Fentanyl Citrate/Pf 100 Mcg/2 Ml Vial) 50 mcg IVPUSH Q5M PRN; Protocol PRN Reason: Pain, Severe (Pain Scale 7-10) Glucose (Glucose Gel 15 Gm Gel..Gram.) 15 gm PO Q15M PRN; Protocol PRN Reason: per Hypoglycemia Standing Ord. Vancomycin HCl 1,000 mg/ (Sodium Chloride) 270 mls @ 270 mls/hr IV Q12H [facility] Last Admin: 04/28/21 08:41 Dose: 270 mls/hr Documented by: Piperacillin Sod/Tazobactam (Sod 3.375 gm/ Sodium Chloride) 50 mls @ 100 mls/hr IV Q6H [facility] Last Infusion: 04/28/21 08:40 Dose: Infused Documented by: Promethazine HCl 12.5 mg/ (Sodium Chloride) 50.5 mls @ 202 mls/hr IV ONCE PRN PRN Reason: Nausea and Vomiting Lactated Ringer's (Lr) 1,000 mls @ 60 mls/hr IVCONT .[id number] [facility] Last Infusion: 04/28/21 08:44 Dose: Infused Documented by: Insulin Glargine (Insulin Glargine,Hum.Rec.Anlog 100 Unit/Ml 10 Ml Vial) 20 unit SUBCUT BEDTIME [facility] Last Admin: 04/27/21 20:15 Dose: 20 unit Documented by: Insulin Human Lispro (Insulin Lispro 100 Unit/Ml 3 Ml Vial) 0 unit SUBCUT QIDACHS [facility]; Protocol Last Admin: 04/28/21 08:01 Dose: 2 unit Documented by: Metoprolol Succinate (Metoprolol Succinate Er 100 Mg Tab.Er.24h) 100 mg PO DAILY [facility]; Protocol Last Admin: 04/28/21 08:01 Dose: 100 mg Documented by: Morphine Sulfate (Morphine Sulfate 2 Mg/Ml Cartridge) 2 mg IVPUSH Q4H PRN; Protocol PRN Reason: Pain, Severe (Pain Scale 7-10) Ondansetron HCl (Ondansetron Hcl 4 Mg/2 Ml Vial) 4 mg IVPUSH ONCE PRN PRN Reason: Nausea and Vomiting Oxycodone HCl (Oxycodone Hcl Immed Release 5 Mg Tablet) 5 mg PO ONCE PRN PRN Reason: Pain, Severe (Pain Scale 7-10) Oxycodone HCl (Oxycodone Hcl Immed Release 5 Mg Tablet) 10 mg PO Q4H PRN PRN Reason: Pain, Moderate (Pain Scale 4-6 Pharmacy Consult (Consult Rx Perform Med Rec) 1 each MISCELLANE ONCE PRN PRN Reason: Consult order Pharmacy Consult (Consult Rx Vancomycin Dosing) 1 each MISCELLANE DAILY PRN PRN Reason: Consult order Sodium Chloride (0.9 % Sodium Chloride Flush 3 Ml Syringe) 3 ml IVFLUSH QSHIFT [facility] Last Admin: 04/28/21 07:11 Dose: Not Given Documented by: Home Medications Medication Instructions Recorded Confirmed Last Taken Type insulin glargine 35 unit SUBCUT 04/26/21 04/26/21 04/25/21 History 100 unit/mL (3 BEDTIME mL) subcutaneous pen rivaroxaban 20 mg 20 mg PO 04/26/21 04/26/21 04/25/21 History tablet (Xarelto) DAILY@1700 Physical Exam Verdana 4l Vital Signs: Verdana 4d Verdana 4d Vital Signs: Verdana 4d Verdana 4Bd Last Vital Signs Verdana 4d Steam Blocker New 4d Steam Blocker New 4d Temp 97.7 F 04/28/21 07:35 Steam Blocker New 4d Pulse 89 04/28/21 07:35 Steam Blocker New 4d Resp 19 04/28/21 07:35 BP 122/71 04/28/21 07:35 Pulse Ox 92 04/28/21 07:35 BMI result Body Mass Index 33.6 Const: General: cooperative, healthy appearing and comfortable Orientation/cons ciousness: oriented to person, oriented to place and oriented to time HENMT: Head: Yes normal to inspection Neck: Neck: Yes normal visual inspection Carotids: no bruits Chest: Chest palpation & inspection: normal inspection of the chest Resp: Effort & Inspection: normal respiratory effort and able to speak in complete sentences Auscultation: clear to auscultation bilaterally, no crackles, no rales, no rhonchi and no wheezes Cardio: Rate: regular rate Rhythm: regular rhythm Heart sounds: S1 normal heart so und present and S2 normal heart sound present Bruits: no carotid bruits Peripheral pulses: dorsalis pedis present (Bilateral DP signals) GI: Inspection: Yes normal to inspection Skin: Wounds: no wounds Hair: normal Neuro: General: oriented to person, oriented to place and oriented to time Cranial nerves: Yes CN's II-XII intact bilaterally and Yes Normal hearing present Cognition (Neuro): normal cognition Motor exam (neuro): 5/5 motor strength present throughout Extrem: Other: venous exam: No significant superficial varicosities or spider telangiectasias, minimal edema General: No clubbing, No cyanosis and No edema Psych: Appearance: grossly normal Mental Status: mental status grossly normal Speech and movement: Normal speech and movement present Results Labs Result diagrams: 04/26/21 15:50 04/28/21 06:06 Labs: Abnormal lab results 04/27/21 04/27/21 04/27/21 Range/Units 10:12 13:55 15:36 Creatinine (0.5-1.4) mg/dL POC Glucose 221 H 179 H 252 H (60-115) mg/dL 04/27/21 04/28/21 04/28/21 Range/Units 19:04 06:06 07:33 Creatinine 1.45 H (0.5-1.4) mg/dL POC Glucose 241 H 168 H (60-115) mg/dL BMP 04/27/21 04/28/21 09:44 06:06 Creatinine 1.23 1.45 H All other labs normal. Assessment and Plan (1) PAD (peripheral artery disease): Status: Acute Plan In short patient has nonhealing right lower extremity foot ulcerations. I have discussed the pathophysiology of peripheral vascular disease with the patient. I have also discussed risk factor modification. We are waiting noninvasive testing but I am unable to appreciate pulses. Due to his history the patient would benefit from a right leg endovascular peripheral angiogram with possible angioplasty, stent, and/or atherectomy. This has been discussed in detail with the patient along with risks, benefits, and complications. This includes but is not limited to bleeding, infection, heart attack, need for emergent surgical repair, limb ischemia, blood vessel damage, bleeding, puncture, kidney injury, bruising, allergic reaction, and skin reaction. The patient demonstrates a clear understanding. We will schedule for Saturday. Thank you for allowing us to assist in this patient's care. Procedures Date of Service Date of Service: 04/28/21
--- NOTE | 2021-04-28 11:26 | HO.POSTANES ---
Post Anesthesia Evaluation Post Anesthesia Evaluation Vital Signs: Vital Signs Temp Pulse Resp BP Pulse Ox 04/28/21 11:07 98 F 91 18 118/63 94 04/28/21 07:35 97.7 F 89 19 122/71 92 04/28/21 04:00 98.2 F 97 18 132/65 93 04/28/21 00:00 97.2 F 93 17 120/72 94 Anesthesia: General Mental Status: Awake Pain Control: Satisfactory Nausea/Vomiting: None Hydration: Adequate Anesthesia-Related Issues: No Anes. Related Issues
[2021-04-28 11:32] LABS: Glucose, Whole Blood 274 mg/dL (60-115)
[2021-04-28] MEDS: Lactated Ringers 1,000 ML 60 ML IVCONT (11:49)
--- NOTE | 2021-04-28 12:53 | MHC.CM.PN ---
PATIENT HAD HIS FIRST COVID-19 PFIZER VACCINE DATE INFO UPLOADED INTO [employer]
--- NOTE | 2021-04-28 13:41 | PM.PNGS ---
Subjective Subjective Date of Service: 04/29/21 Interval history: denies pain says he feels well Physical Exam Vital Signs: Vital Signs: Last Vital Signs Temp 98 F 04/28/21 11:07 Pulse 91 04/28/21 11:07 Resp 18 04/28/21 11:07 BP 118/63 04/28/21 11:07 Pulse Ox 94 04/28/21 11:07 BMI result Body Mass Index 33.6 Const: General: comfortable and no acute distress Resp: Effort & Inspection: normal respiratory effort Cardio: Rhythm: abnormal rhythm GI: Palpation (GI): Soft to palpation and nontender Extrem: Other: dressings taken down- large open wound dorsum and plantar aspect, from yesterday's debridement, pain, mostly granulating well, patches of fibrinous exudates, 3rd and 5th toes appear dusky but dry Objective Data Active Medications Amlodipine Besylate (Amlodipine Besylate 10 Mg Tablet) 10 mg PO DAILY [facility]; Protocol Last Admin: 04/28/21 08:01 Dose: 10 mg Documented by: EVERET[place]A Dextrose (Dextrose 50 % 25 Gm/50 Ml Syringe) 25 gm IVPUSH Q15M PRN; Protocol PRN Reason: per Hypoglycemia Standing Ord. Fentanyl (Fentanyl Citrate/Pf 100 Mcg/2 Ml Vial) 50 mcg IVPUSH Q5M PRN; Protocol PRN Reason: Pain, Severe (Pain Scale 7-10) Glucose (Glucose Gel 15 Gm Gel..Gram.) 15 gm PO Q15M PRN; Protocol PRN Reason: per Hypoglycemia Standing Ord. Vancomycin HCl 1,000 mg/ (Sodium Chloride) 270 mls @ 270 mls/hr IV Q12H [facility] Last Infusion: 04/28/21 09:49 Dose: 0 mls/hr Documented by: COTEMA Piperacillin Sod/Tazobactam (Sod 3.375 gm/ Sodium Chloride) 50 mls @ 100 mls/hr IV Q6H [facility] Last Infusion: 04/28/21 08:40 Dose: 0 mls/hr Documented by: COTEMA Promethazine HCl 12.5 mg/ (Sodium Chloride) 50.5 mls @ 202 mls/hr IV ONCE PRN PRN Reason: Nausea and Vomiting Lactated Ringer's (Lr) 1,000 mls @ 60 mls/hr IVCONT .[id number] [facility] Last Admin: 04/28/21 11:49 Dose: 60 mls/hr Documented by: MENA Sodium Chloride (Ns) 1,000 mls @ 100 mls/hr IVCONT .Q10H [facility] Insulin Glargine (Insulin Glargine,Hum.Rec.Anlog 100 Unit/Ml 10 Ml Vial) 20 unit SUBCUT BEDTIME [facility] Last Admin: 04/27/21 20:15 Dose: 20 unit Documented by: MONIE Insulin Human Lispro (Insulin Lispro 100 Unit/Ml 3 Ml Vial) 0 unit SUBCUT QIDACHS [facility]; Protocol Last Admin: 04/28/21 11:48 Dose: 6 unit Documented by: MENA Metoprolol Succinate (Metoprolol Succinate Er 100 Mg Tab.Er.24h) 100 mg PO DAILY [facility]; Protocol Last Admin: 04/28/21 08:01 Dose: 100 mg Documented by: MENA Morphine Sulfate (Morphine Sulfate 2 Mg/Ml Cartridge) 2 mg IVPUSH Q4H PRN; Protocol PRN Reason: Pain, Severe (Pain Scale 7-10) Ondansetron HCl (Ondansetron Hcl 4 Mg/2 Ml Vial) 4 mg IVPUSH ONCE PRN PRN Reason: Nausea and Vomiting Oxycodone HCl (Oxycodone Hcl Immed Release 5 Mg Tablet) 5 mg PO ONCE PRN PRN Reason: Pain, Severe (Pain Scale 7-10) Oxycodone HCl (Oxycodone Hcl Immed Release 5 Mg Tablet) 10 mg PO Q4H PRN PRN Reason: Pain, Moderate (Pain Scale 4-6 Pharmacy Consult (Consult Rx Perform Med Rec) 1 each MISCELLANE ONCE PRN PRN Reason: Consult order Pharmacy Consult (Consult Rx Vancomycin Dosing) 1 each MISCELLANE DAILY PRN PRN Reason: Consult order Sodium Chloride (0.9 % Sodium Chloride Flush 3 Ml Syringe) 3 ml IVFLUSH QSHIFT [facility] Last Admin: 04/28/21 07:11 Dose: Not Given Documented by: MENA Non-Admin Reason: IV Running Labs CBC & Chem 7: 04/26/21 15:50 04/29/21 05:53 Labs: Laboratory Results - last 24 hr 04/27/21 04/27/21 04/27/21 13:55 15:36 19:04 Estim Creat Clear Calc Estimated GFR POC Glucose 179 H 252 H 241 H Vancomycin Trough 04/28/21 04/28/21 04/28/21 06:06 06:06 07:33 Estim Creat Clear Calc 80.0 Estimated GFR 50 POC Glucose 168 H Vancomycin Trough 13.9 04/28/21 11:10 Estim Creat Clear Calc Estimated GFR POC Glucose 274 H Vancomycin Trough Microbiology Microbiology Results: Microbiology 04/27/21 Unknown Gram Stain - Final Foot Right Routine Culture - Preliminary Culture in progress. 04/26/21 19:42 Blood Culture - Preliminary Blood - Venous No growth after 24 hours. 04/26/21 18:39 Blood Culture - Preliminary Blood - Venous No growth after 24 hours. Procedures Date of Service Date of Service: 04/29/21 Progress Note: A&P Assessment and plan (1) Diabetic foot infection: Status: Acute Assessment and Plan: status post excision debridement yesterday I have changed his dressings mostly granulating well clean have applied wet to dry and wrapped the foot with Kerlix roll daily wound care 3rd toe and toe dusky and may need amputation he wants to save his foot as best as possible continue current care okay to restart anticoagulants for AFib; will therefore not order heparin vascular surgery consulted patient's smoking history, diabetes, with foot ulcer Fall Risk Details Current Medications: Current Medications Amlodipine Besylate (Amlodipine Besylate 10 Mg Tablet) 10 mg PO DAILY [facility]; Protocol Last Admin: 04/28/21 08:01 Dose: 10 mg Documented by: Dextrose (Dextrose 50 % 25 Gm/50 Ml Syringe) 25 gm IVPUSH Q15M PRN; Protocol PRN Reason: per Hypoglycemia Standing Ord. Fentanyl (Fentanyl Citrate/Pf 100 Mcg/2 Ml Vial) 50 mcg IVPUSH Q5M PRN; Protocol PRN Reason: Pain, Severe (Pain Scale 7-10) Glucose (Glucose Gel 15 Gm Gel..Gram.) 15 gm PO Q15M PRN; Protocol PRN Reason: per Hypoglycemia Standing Ord. Vancomycin HCl 1,000 mg/ (Sodium Chloride) 270 mls @ 270 mls/hr IV Q12H [facility] Last Infusion: 04/28/21 09:49 Dose: Infused Documented by: Piperacillin Sod/Tazobactam (Sod 3.375 gm/ Sodium Chloride) 50 mls @ 100 mls/hr IV Q6H [facility] Last Infusion: 04/28/21 08:40 Dose: Infused Documented by: Promethazine HCl 12.5 mg/ (Sodium Chloride) 50.5 mls @ 202 mls/hr IV ONCE PRN PRN Reason: Nausea and Vomiting Lactated Ringer's (Lr) 1,000 mls @ 60 mls/hr IVCONT .[id number] [facility] Last Admin: 04/28/21 11:49 Dose: 60 mls/hr Documented by: Sodium Chloride (Ns) 1,000 mls @ 100 mls/hr IVCONT .Q10H [facility] Insulin Glargine (Insulin Glargine,Hum.Rec.Anlog 100 Unit/Ml 10 Ml Vial) 20 unit SUBCUT BEDTIME [facility] Last Admin: 04/27/21 20:15 Dose: 20 unit Documented by: Insulin Human Lispro (Insulin Lispro 100 Unit/Ml 3 Ml Vial) 0 unit SUBCUT QIDACHS [facility]; Protocol Last Admin: 04/28/21 11:48 Dose: 6 unit Documented by: Metoprolol Succinate (Metoprolol Succinate Er 100 Mg Tab.Er.24h) 100 mg PO DAILY [facility]; Protocol Last Admin: 04/28/21 08:01 Dose: 100 mg Documented by: Morphine Sulfate (Morphine Sulfate 2 Mg/Ml Cartridge) 2 mg IVPUSH Q4H PRN; Protocol PRN Reason: Pain, Severe (Pain Scale 7-10) Ondansetron HCl (Ondansetron Hcl 4 Mg/2 Ml Vial) 4 mg IVPUSH ONCE PRN PRN Reason: Nausea and Vomiting Oxycodone HCl (Oxycodone Hcl Immed Release 5 Mg Tablet) 5 mg PO ONCE PRN PRN Reason: Pain, Severe (Pain Scale 7-10) Oxycodone HCl (Oxycodone Hcl Immed Release 5 Mg Tablet) 10 mg PO Q4H PRN PRN Reason: Pain, Moderate (Pain Scale 4-6 Pharmacy Consult (Consult Rx Perform Med Rec) 1 each MISCELLANE ONCE PRN PRN Reason: Consult order Pharmacy Consult (Consult Rx Vancomycin Dosing) 1 each MISCELLANE DAILY PRN PRN Reason: Consult order Sodium Chloride (0.9 % Sodium Chloride Flush 3 Ml Syringe) 3 ml IVFLUSH QSHIFT [facility] Last Admin: 04/28/21 07:11 Dose: Not Given Documented by: Time Spent With Patient Time: Total time spent is greater than 50% in coordination of care (as documented) at patient's floor/unit and/or counseling patient: Time with patient: 15 - 24 minutes Quality Stroke Does the patient have a stroke diagnosis?: No VTE Prior VTE?: No VTE Risk Level:: Medical - moderate - high VTE Device Contraindication: Treatment Not Indicated VTE Drug Contraindication: Treatment Not Indicated
--- NOTE | 2021-04-28 14:00 | MHC.CM.PN ---
ANDERSON MCKINLEYA UPDATED IN [employer] IS ANGIO ON SATURDAY
[2021-04-28] MEDS: 0.9 % Sodium Chloride Flush 3 ML SYRINGE IVFLUSH (14:55)
[2021-04-28 15:58] LABS: Glucose, Whole Blood 300 mg/dL (60-115)
[2021-04-28 19:53] LABS: Glucose, Whole Blood 229 mg/dL (60-115)
[2021-04-28] MEDS: Insulin Glargine,Hum.rec.anlog 100 UNIT/ML 10 ML VIAL 20 UNIT SUBCUT (20:09)
--- NOTE | 2021-04-28 22:29 | W.PM.IDCN ---
History of Present Illness Data of Consult Service Date: 04/28/21 Requesting physician: Chris Crowell Primary Care Provider: MD BLAISE Ulloa Reason for consult: foot infection He presents to hospital with discomfort right foot. He had surgery debridement yesterday He had wound for severl months PMFSH Past Medical History Medical History Benign essential hypertension COVID-19 Diabetes mellitus Diabetic foot infection Obesity (BMI 30-39.9) Paroxysmal atrial fibrillation Type II diabetes mellitus Uncontrolled diabetes mellitus Family History Family History Mother No problems noted. Father No problems noted. Surgical History Surgical History No pertinent past surgical history Social History Social History Household Members: Family Housing: House Do you presently have visiting nurse or other home services: No Unable to assess alcohol history related to: Refusing to respond Alcohol intake: current Alcohol intake frequency: does not drink Patient Tobacco Use Status: Current everyday Tobacco user Tobacco use type: Cigarette Cigarettes Per Day: 3 Second Hand Smoke Exposure: Yes service: No Current occupational status: unemployed Cognitive needs: No Hearing needs: No Vision needs: No Meds Allergies Allergy/AdvReac Type Severity Reaction Status Date / Time No Known Allergies Allergy Verified 06/27/21 15:59 [No Known Allergies*] Active Medications: Current Medications Amlodipine Besylate (Amlodipine Besylate 10 Mg Tablet) 10 mg PO DAILY [facility]; Protocol Last Admin: 04/28/21 08:01 Dose: 10 mg Documented by: Dextrose (Dextrose 50 % 25 Gm/50 Ml Syringe) 25 gm IVPUSH Q15M PRN; Protocol PRN Reason: per Hypoglycemia Standing Ord. Fentanyl (Fentanyl Citrate/Pf 100 Mcg/2 Ml Vial) 50 mcg IVPUSH Q5M PRN; Protocol PRN Reason: Pain, Severe (Pain Scale 7-10) Glucose (Glucose Gel 15 Gm Gel..Gram.) 15 gm PO Q15M PRN; Protocol PRN Reason: per Hypoglycemia Standing Ord. Vancomycin HCl 1,000 mg/ (Sodium Chloride) 270 mls @ 270 mls/hr IV Q12H [facility] Last Infusion: 04/28/21 21:06 Dose: Infused Documented by: Piperacillin Sod/Tazobactam (Sod 3.375 gm/ Sodium Chloride) 50 mls @ 100 mls/hr IV Q6H [facility] Last Infusion: 04/28/21 20:37 Dose: Infused Documented by: Promethazine HCl 12.5 mg/ (Sodium Chloride) 50.5 mls @ 202 mls/hr IV ONCE PRN PRN Reason: Nausea and Vomiting Lactated Ringer's (Lr) 1,000 mls @ 60 mls/hr IVCONT .[id number] [facility] Last Admin: 04/28/21 11:49 Dose: 60 mls/hr Documented by: Sodium Chloride (Ns) 1,000 mls @ 100 mls/hr IVCONT .Q10H [facility] Insulin Glargine (Insulin Glargine,Hum.Rec.Anlog 100 Unit/Ml 10 Ml Vial) 20 unit SUBCUT BEDTIME [facility] Last Admin: 04/28/21 20:09 Dose: 20 unit Documented by: Insulin Human Lispro (Insulin Lispro 100 Unit/Ml 3 Ml Vial) 0 unit SUBCUT QIDACHS [facility]; Protocol Last Admin: 04/28/21 20:09 Dose: 4 unit Documented by: Metoprolol Succinate (Metoprolol Succinate Er 100 Mg Tab.Er.24h) 100 mg PO DAILY [facility]; Protocol Last Admin: 04/28/21 08:01 Dose: 100 mg Documented by: Morphine Sulfate (Morphine Sulfate 2 Mg/Ml Cartridge) 2 mg IVPUSH Q4H PRN; Protocol PRN Reason: Pain, Severe (Pain Scale 7-10) Ondansetron HCl (Ondansetron Hcl 4 Mg/2 Ml Vial) 4 mg IVPUSH ONCE PRN PRN Reason: Nausea and Vomiting Oxycodone HCl (Oxycodone Hcl Immed Release 5 Mg Tablet) 5 mg PO ONCE PRN PRN Reason: Pain, Severe (Pain Scale 7-10) Oxycodone HCl (Oxycodone Hcl Immed Release 5 Mg Tablet) 10 mg PO Q4H PRN PRN Reason: Pain, Moderate (Pain Scale 4-6 Pharmacy Consult (Consult Rx Perform Med Rec) 1 each MISCELLANE ONCE PRN PRN Reason: Consult order Pharmacy Consult (Consult Rx Vancomycin Dosing) 1 each MISCELLANE DAILY PRN PRN Reason: Consult order Sodium Chloride (0.9 % Sodium Chloride Flush 3 Ml Syringe) 3 ml IVFLUSH QSHIFT [facility] Last Admin: 04/28/21 20:54 Dose: Not Given Documented by: Physical Exam Vital Signs: Vital Signs: Last Vital Signs Temp 98.8 F 04/28/21 19:23 Pulse 96 04/28/21 19:23 Resp 18 04/28/21 19:23 BP 132/66 04/28/21 19:23 Pulse Ox 90 L 04/28/21 19:23 BMI result Body Mass Index 33.6 Const: General: cooperative Eyes: General: appearance normal, both eyes and all related structures Resp: Effort & Inspection: normal respiratory effort Cardio: Rate: regular rate Rhythm: regular rhythm GI: Palpation (GI): Soft to palpation and nontender Extrem: Other: reddened right foot with ulcers Results Labs CBC & Chem 7: 04/26/21 15:50 05/05/21 06:01 Labs: BMP 04/28/21 06:06 Creatinine 1.45 H Microbiology Microbiology Results: Microbiology 04/26/21 19:42 Blood - Venous Blood Culture - Preliminary No growth after 48 hours. 04/26/21 18:39 Blood - Venous Blood Culture - Preliminary No growth after 48 hours. 04/27/21 Unknown Foot Right Gram Stain - Final 04/27/21 Unknown Foot Right Routine Culture - Preliminary Culture in progress. Assessment and Plan (1) Osteomyelitis: Status: Acute He has gram negative and gram positive possible He has longsanding infection Plan Continue antibiotics and possible discharge on ertapenem for six weeks
[2021-04-29] MEDS: Piperacillin Sodium/Tazobactam 3.375 GM in 0.9 % Sodium Chloride 50 ML IV ×4 (01:19→19:30)
[2021-04-29 04:00] VITALS: BP 117/64; PULSE 91; RESP 18; TEMP 36.6; O2SAT 97
[2021-04-29] MEDS: Lactated Ringers 1,000 ML 60 ML IVCONT (06:02)
[2021-04-29 06:43] LABS: Vancomycin Trough 18.5 mcg/mL (10.0-20.0)
[2021-04-29 06:45] LABS: Creatinine Clr Calc Pharmacy 83.5; Estimated Glomerular Filt Rate 53
--- NOTE | 2021-04-29 07:11 | PHA.PROG ---
Addendum entered by Nubia Muhammad RPh 04/30/21 06:53: Will continue to monitor renal function, next trough will be drawn on 04/30 @ 1800. Original Note: Admission Date/Time: April 26, 2021 21:24 Indication: skin and soft tissue infection Weight in k kg Adjusted body weight in Kg: Sherrill body weight in Kg: Obesity Dosing Indication % IBW: Serum Creatinine - Last 168 Hours 04/26/21 04/27/21 04/28/21 15:50 09:44 06:06 Creatinine 1.40 1.23 1.45 H 04/29/21 05:53 Creatinine 1.39 Estimated CrCl and GFR - Last 168 Hours 04/26/21 04/27/21 04/28/21 15:50 09:44 06:06 Estim Creat Clear Calc 77.7 94.3 80.0 Estimated GFR 52 > 60 50 04/29/21 05:53 Estim Creat Clear Calc 83.5 Estimated GFR 53 Vancomycin Loading Dose: Current Vancomycin Dosing Regimen: 1000 mg q12h Vancomycin Monitoring using AUC goal of 400 - 600 range with trough as surrogate marker: Recommend dropping the dose to 750 mg q12h which predicts a AUC of 481, trough of 17.6. Date and Time for next Vancomycin Level to be drawn: 04/30 @ 1800 Vancomycin Trough 18.5 mcg/mL (10.0-20.0) 04/29/21 05:53 Pharmacist Comments on Vancomycin Plan: Continue to watch renal function. Vancomycin dosing will take advantage of [employer] as a clinical decision support tool that uses Bayesian modeling to calculate individual patient's pharmacokinetic parameters and forecast the patient's drug concentration time course with the target goal AUC 24 range of 400 - 600 mg/L/hr.
[2021-04-29 07:28] VITALS: BP 165/77; PULSE 91; RESP 18; TEMP 37.1; O2SAT 91
[2021-04-29 07:53] LABS: Glucose, Whole Blood 181 mg/dL (60-115)
[2021-04-29] MEDS: Insulin Lispro 100 UNIT/ML 3 ML VIAL SUBCUT ×4 (08:39→20:15)
[2021-04-29] MEDS: vancomycin HCL 750 MG in 0.9 % Sodium Chloride 250 ML 265 MG IV ×2 (08:40→20:16)
[2021-04-29] MEDS: Metoprolol Succinate ER 100 MG TAB.ER.24H PO (08:40)
[2021-04-29] MEDS: amLODIPine Besylate 10 MG TABLET PO (08:40)
--- NOTE | 2021-04-29 09:35 | P.PNIM_ITS ---
Subjective Subjective Date of Service: 04/29/21 Interval History: F/u on med consult for diabetic management in light of diabetic foot ulcer..Pain is controlled, no new issues Physical Exam Verdana 4l Vital Signs: Verdana 4d Verdana 4d Vital Signs: Verdana 4d Verdana 4Bd Last Vital Signs Verdana 4d Yard Stocker New 4d Yard Stocker New 4d Temp 98.8 F 04/29/21 07:28 Yard Stocker New 4d Pulse 91 04/29/21 07:28 Yard Stocker New 4d Resp 18 04/29/21 07:28 BP 165/77 H 04/29/21 07:28 Pulse Ox 91 L 04/29/21 07:28 BMI result Body Mass Index 33.6 Const: Other: General: AO X 3, no acute distress Resp: CTA bilateral CVS: S1,S2,RRR GI: +BS, NT, no distention Skin: See pictures elsewhere Neuro: motor grossly intact Psych: appropriate affect Objective Data Active Medications Amlodipine Besylate (Amlodipine Besylate 10 Mg Tablet) 10 mg PO DAILY [facility]; Protocol Last Admin: 04/29/21 08:40 Dose: 10 mg Documented by: SALLY Dextrose (Dextrose 50 % 25 Gm/50 Ml Syringe) 25 gm IVPUSH Q15M PRN; Protocol PRN Reason: per Hypoglycemia Standing Ord. Fentanyl (Fentanyl Citrate/Pf 100 Mcg/2 Ml Vial) 50 mcg IVPUSH Q5M PRN; Protocol PRN Reason: Pain, Severe (Pain Scale 7-10) Glucose (Glucose Gel 15 Gm Gel..Gram.) 15 gm PO Q15M PRN; Protocol PRN Reason: per Hypoglycemia Standing Ord. Piperacillin Sod/Tazobactam (Sod 3.375 gm/ Sodium Chloride) 50 mls @ 100 mls/hr IV Q6H [facility] Last Admin: 04/29/21 08:40 Dose: 100 mls/hr Documented by: SALLY Promethazine HCl 12.5 mg/ (Sodium Chloride) 50.5 mls @ 202 mls/hr IV ONCE PRN PRN Reason: Nausea and Vomiting Lactated Ringer's (Lr) 1,000 mls @ 60 mls/hr IVCONT .[id number] [facility] Last Infusion: 04/29/21 08:41 Dose: 0 mls/hr Documented by: SALLY Sodium Chloride (Ns) 1,000 mls @ 100 mls/hr IVCONT .Q10H [facility] Vancomycin HCl 750 mg/ Sodium (Chloride) 265 mls @ 265 mls/hr IV Q12H [facility] Last Infusion: 04/29/21 08:41 Dose: 0 mls/hr Documented by: SALLY Insulin Glargine (Insulin Glargine,Hum.Rec.Anlog 100 Unit/Ml 10 Ml Vial) 20 unit SUBCUT BEDTIME [facility] Last Admin: 04/28/21 20:09 Dose: 20 unit Documented by: IZZY Insulin Human Lispro (Insulin Lispro 100 Unit/Ml 3 Ml Vial) 0 unit SUBCUT QIDACHS [facility]; Protocol Last Admin: 04/29/21 08:39 Dose: 2 unit Documented by: SALLY Metoprolol Succinate (Metoprolol Succinate Er 100 Mg Tab.Er.24h) 100 mg PO DAILY [facility]; Protocol Last Admin: 04/29/21 08:40 Dose: 100 mg Documented by: SALLY Morphine Sulfate (Morphine Sulfate 2 Mg/Ml Cartridge) 2 mg IVPUSH Q4H PRN; Protocol PRN Reason: Pain, Severe (Pain Scale 7-10) Ondansetron HCl (Ondansetron Hcl 4 Mg/2 Ml Vial) 4 mg IVPUSH ONCE PRN PRN Reason: Nausea and Vomiting Oxycodone HCl (Oxycodone Hcl Immed Release 5 Mg Tablet) 5 mg PO ONCE PRN PRN Reason: Pain, Severe (Pain Scale 7-10) Oxycodone HCl (Oxycodone Hcl Immed Release 5 Mg Tablet) 10 mg PO Q4H PRN PRN Reason: Pain, Moderate (Pain Scale 4-6 Pharmacy Consult (Consult Rx Perform Med Rec) 1 each MISCELLANE ONCE PRN PRN Reason: Consult order Pharmacy Consult (Consult Rx Vancomycin Dosing) 1 each MISCELLANE DAILY PRN PRN Reason: Consult order Sodium Chloride (0.9 % Sodium Chloride Flush 3 Ml Syringe) 3 ml IVFLUSH QSHIFT [facility] Last Admin: 04/29/21 08:39 Dose: Not Given Documented by: SALLY Non-Admin Reason: IV Running Labs CBC & Chem 7: 04/26/21 15:50 04/29/21 05:53 Labs: Laboratory Results - last 24 hr 04/28/21 04/28/2104/28/22 11:10 15:35 19:27 Estim Creat Clear Calc Estimated GFR POC Glucose 274 H 300 H 229 H Vancomycin Trough 04/29/21 04/29/21 04/29/21 05:53 05:53 07:26 Estim Creat Clear Calc 83.5 Estimated GFR 53 POC Glucose 181 H Vancomycin Trough 18.5 Microbiology Microbiology Results: Microbiology 04/27/21 Unknown Gram Stain - Final Foot Right Routine Culture - Final 04/26/21 19:42 Blood Culture - Preliminary Blood - Venous No growth after 48 hours. 04/26/21 18:39 Blood Culture - Preliminary Blood - Venous No growth after 48 hours. Assessment and Plan (1) Hypertension: Status: Acute (2) Diabetic foot infection: Status: Acute (3) Type II diabetes mellitus: Status: Acute Plan 56-year-old male with a past medical history of hypertension, hyperlipidemia, diabetes, recent admission to the hospital for possible HHS/diabetic foot infe ction was antibiotics; presented to the hospital today with a chief complaint of right foot diabetic foot infection/discharge.? #Diabetic foot infection / necrosis/Sepsis s/p debridment -continue Zosyn/Vanco, cutlure no growth, ID following possible Ertapenem for 6 wks at dc -Angiogram by Vascular on Monday 05/01 #Diabetes--Uncontrolled -continue Lantus, SSI, ADA and adjust med as needed #HTN--Controlled, continue Norvasc tomorrow #Chronic AFIB--controlled, Xarelto on hold for surgery saturday DVT prophylaxis--Heparin ? Quality Stroke Does the patient have a stroke diagnosis?: No VTE Prior VTE?: No VTE Risk Level:: Medical - moderate - high VTE Device Contraindication: Treatment Not Indicated VTE Drug Contraindication: Treatment Not Indicated
--- NOTE | 2021-04-29 09:58 | P.PNGS_ITS ---
Subjective Subjective Date of Service: 04/30/21 Interval history: denies complaints no pain says he feels well Physical Exam Verdana 4l Vital Signs: Verdana 4d Verdana 4d Vital Signs: Verdana 4d Verdana 4Bd Last Vital Signs Verdana 4d Sugar Chipper Machine Operator New 4d Michael New 4d Temp 98.8 F 04/29/21 07:28 Sugar Chipper Machine Operator New 4d Pulse 91 04/29/21 07:28 Sugar Chipper Machine Operator New 4d Resp 18 04/29/21 07:28 BP 165/77 H 04/29/21 07:28 Pulse Ox 91 L 04/29/21 07:28 BMI result Body Mass Index 33.6 Const: General: comfortable and no acute distress Resp: Effort & Inspection: normal respiratory effort Cardio: Rhythm: abnormal rhythm GI: Palpation (GI): Soft to palpation and nontender Extrem: Other: debrided areas on dorsum of foot, plantar aspect generally clean, granulating with patches of fibrinous debris; 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 Fentanyl (Fentanyl Citrate/Pf 100 Mcg/2 Ml Vial) 50 mcg IVPUSH Q5M PRN; Protocol PRN Reason: Pain, Severe (Pain Scale 7-10) Glucose (Glucose Gel 15 Gm Gel..Gram.) 15 gm PO Q15M PRN; Protocol PRN Reason: per Hypoglycemia Standing Ord. Heparin Sodium (Porcine) (Heparin Sodium,Porcine 5,000 Unit/Ml Vial) 5,000 unit SUBCUT Q12H [facility] Piperacillin Sod/Tazobactam (Sod 3.375 gm/ Sodium Chloride) 50 mls @ 100 mls/hr IV Q6H [facility] Last Infusion: 04/29/21 09:47 Dose: 0 mls/hr Documented by: SALLY Promethazine HCl 12.5 mg/ (Sodium Chloride) 50.5 mls @ 202 mls/hr IV ONCE PRN PRN Reason: Nausea and Vomiting Lactated Ringer's (Lr) 1,000 mls @ 60 mls/hr IVCONT .[id number] [facility] Last Infusion: 04/29/21 08:41 Dose: 0 mls/hr Documented by: SALLY Sodium Chloride (Ns) 1,000 mls @ 100 mls/hr IVCONT .Q10H [facility] Vancomycin HCl 750 mg/ Sodium (Chloride) 265 mls @ 265 mls/hr IV Q12H [facility] Last Infusion: 04/29/21 09:48 Dose: 265 mls/hr Documented by: SALLY Insulin Glargine (Insulin Glargine,Hum.Rec.Anlog 100 Unit/Ml 10 Ml Vial) 20 unit SUBCUT BEDTIME [facility] Last Admin: 04/28/21 20:09 Dose: 20 unit Documented by: IZZY Insulin Human Lispro (Insulin Lispro 100 Unit/Ml 3 Ml Vial) 0 unit SUBCUT QIDACHS [facility]; Protocol Last Admin: 04/29/21 08:39 Dose: 2 unit Documented by: SALLY Metoprolol Succinate (Metoprolol Succinate Er 100 Mg Tab.Er.24h) 100 mg PO DAILY [facility]; Protocol Last Admin: 04/29/21 08:40 Dose: 100 mg Documented by: SALLY Morphine Sulfate (Morphine Sulfate 2 Mg/Ml Cartridge) 2 mg IVPUSH Q4H PRN; Protocol PRN Reason: Pain, Severe (Pain Scale 7-10) Ondansetron HCl (Ondansetron Hcl 4 Mg/2 Ml Vial) 4 mg IVPUSH ONCE PRN PRN Reason: Nausea and Vomiting Oxycodone HCl (Oxycodone Hcl Immed Release 5 Mg Tablet) 5 mg PO ONCE PRN PRN Reason: Pain, Severe (Pain Scale 7-10) Oxycodone HCl (Oxycodone Hcl Immed Release 5 Mg Tablet) 10 mg PO Q4H PRN PRN Reason: Pain, Moderate (Pain Scale 4-6 Pharmacy Consult (Consult Rx Perform Med Rec) 1 each MISCELLANE ONCE PRN PRN Reason: Consult order Pharmacy Consult (Consult Rx Vancomycin Dosing) 1 each MISCELLANE DAILY PRN PRN Reason: Consult order Sodium Chloride (0.9 % Sodium Chloride Flush 3 Ml Syringe) 3 ml IVFLUSH QSHIFT [facility] Last Admin: 04/29/21 08:39 Dose: Not Given Documented by: SALLY Non-Admin Reason: IV Running Labs CBC & Chem 7: 04/26/21 15:50 04/30/21 05:08 Labs: Laboratory Results - last 24 hr 04/28/21 04/28/21 04/28/21 11:10 15:35 19:27 Estim Creat Clear Calc Estimated GFR POC Glucose 274 H 300 H 229 H Vancomycin Trough 04/29/21 04/29/21 04/29/21 05:53 05:53 07:26 Estim Creat Clear Calc 83.5 Estimated GFR 53 POC Glucose 181 H Vancomycin Trough 18.5 Microbiology Microbiology Results: Microbiology 04/27/21 Unknown Gram Stain - Final Foot Right Routine Culture - Final 04/26/21 19:42 Blood Culture - Preliminary Blood - Venous No growth after 48 hours. 04/26/21 18:39 Blood Culture - Preliminary Blood - Venous No growth after 48 hours. 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 Fentanyl (Fentanyl Citrate/Pf 100 Mcg/2 Ml Vial) 50 mcg IVPUSH Q5M PRN; Protocol PRN Reason: Pain, Severe (Pain Scale 7-10) Glucose (Glucose Gel 15 Gm Gel..Gram.) 15 gm PO Q15M PRN; Protocol PRN Reason: per Hypoglycemia Standing Ord. Heparin Sodium (Porcine) (Heparin Sodium,Porcine 5,000 Unit/Ml Vial) 5,000 unit SUBCUT Q12H [facility] Piperacillin Sod/Tazobactam (Sod 3.375 gm/ Sodium Chloride) 50 mls @ 100 mls/hr IV Q6H [facility] Last Infusion: 04/29/21 09:47 Dose: Infused Documented by: Promethazine HCl 12.5 mg/ (Sodium Chloride) 50.5 mls @ 202 mls/hr IV ONCE PRN PRN Reason: Nausea and Vomiting Lactated Ringer's (Lr) 1,000 mls @ 60 mls/hr IVCONT .[id number] [facility] Last Infusion: 04/29/21 08:41 Dose: 0 mls/hr Documented by: Sodium Chloride (Ns) 1,000 mls @ 100 mls/hr IVCONT .Q10H [facility] Vancomycin HCl 750 mg/ Sodium (Chloride) 265 mls @ 265 mls/hr IV Q12H [facility] Last Infusion: 04/29/21 09:48 Dose: 265 mls/hr Documented by: Insulin Glargine (Insulin Glargine,Hum.Rec.Anlog 100 Unit/Ml 10 Ml Vial) 20 unit SUBCUT BEDTIME [facility] Last Admin: 04/28/21 20:09 Dose: 20 unit Documented by: Insulin Human Lispro (Insulin Lispro 100 Unit/Ml 3 Ml Vial) 0 unit SUBCUT QIDACHS [facility]; Protocol Last Admin: 04/29/21 08:39 Dose: 2 unit Documented by: Metoprolol Succinate (Metoprolol Succinate Er 100 Mg Tab.Er.24h) 100 mg PO DAILY [facility]; Protocol Last Admin: 04/29/21 08:40 Dose: 100 mg Documented by: Morphine Sulfate (Morphine Sulfate 2 Mg/Ml Cartridge) 2 mg IVPUSH Q4H PRN; Protocol PRN Reason: Pain, Severe (Pain Scale 7-10) Ondansetron HCl (Ondansetron Hcl 4 Mg/2 Ml Vial) 4 mg IVPUSH ONCE PRN PRN Reason: Nausea and Vomiting Oxycodone HCl (Oxycodone Hcl Immed Release 5 Mg Tablet) 5 mg PO ONCE PRN PRN Reason: Pain, Severe (Pain Scale 7-10) Oxycodone HCl (Oxycodone Hcl Immed Release 5 Mg Tablet) 10 mg PO Q4H PRN PRN Reason: Pain, Moderate (Pain Scale 4-6 Pharmacy Consult (Consult Rx Perform Med Rec) 1 each MISCELLANE ONCE PRN PRN Reason: Consult order Pharmacy Consult (Consult Rx Vancomycin Dosing) 1 each MISCELLANE DAILY PRN PRN Reason: Consult order Sodium Chloride (0.9 % Sodium Chloride Flush 3 Ml Syringe) 3 ml IVFLUSH QSHIFT [facility] Last Admin: 04/29/21 08:39 Dose: Not Given Documented by: Time Spent With Patient Time: Total time spent is greater than 50% in coordination of care (as documented) at patient's floor/unit and/or counseling patient: Time with patient: 15 - 24 minutes Quality Stroke Does the patient have a stroke diagnosis?: No VTE Prior VTE?: No VTE Risk Level:: Medical - moderate - high VTE Device Contraindication: Treatment Not Indicated VTE Drug Contraindication: Treatment Not Indicated
[2021-04-29 10:00] VITALS: O2SAT 93
[2021-04-29] MEDS: Heparin Sodium,Porcine 5,000 UNIT/ML VIAL 5000 UNIT SUBCUT ×2 (10:05→22:42)
[2021-04-29 11:28] VITALS: BP 145/69; PULSE 88; RESP 18; TEMP 37.1; O2SAT 96
[2021-04-29 11:46] LABS: Glucose, Whole Blood 224 mg/dL (60-115)
[2021-04-29] MEDS: Omeprazole 20 MG CAPSULE.DR PO (11:57)
[2021-04-29 16:00] VITALS: BP 163/82; PULSE 98; RESP 16; TEMP 37.2; O2SAT 92
[2021-04-29 16:32] LABS: Glucose, Whole Blood 226 mg/dL (60-115)
[2021-04-29 19:37] VITALS: BP 140/70; PULSE 98; RESP 17; TEMP 37.2; O2SAT 92
[2021-04-29 20:04] LABS: Glucose, Whole Blood 305 mg/dL (60-115)
[2021-04-29] MEDS: Insulin Glargine,Hum.rec.anlog 100 UNIT/ML 10 ML VIAL 20 UNIT SUBCUT (20:15)
[2021-04-30] VITALS (8 sets, daily range): BP systolic 121–169; BP diastolic 58–74; PULSE 82–94; RESP 16–18; TEMP 36.5–37.2; O2SAT 91–95
[2021-04-30] MEDS: Lactated Ringers 1,000 ML 60 ML IVCONT ×2 (01:23→13:55)
[2021-04-30] MEDS: Piperacillin Sodium/Tazobactam 3.375 GM in 0.9 % Sodium Chloride 50 ML IV ×4 (01:41→19:32)
[2021-04-30] MEDS: Omeprazole 20 MG CAPSULE.DR PO (05:29)
[2021-04-30 06:33] LABS: Creatinine Clr Calc Pharmacy 83.5; Estimated Glomerular Filt Rate 53
[2021-04-30] MEDS: Heparin Sodium,Porcine 5,000 UNIT/ML VIAL 5000 UNIT SUBCUT ×2 (08:16→22:33)
[2021-04-30] MEDS: Metoprolol Succinate ER 100 MG TAB.ER.24H PO (08:18)
[2021-04-30] MEDS: amLODIPine Besylate 10 MG TABLET PO (08:18)
[2021-04-30] MEDS: Insulin Lispro 100 UNIT/ML 3 ML VIAL SUBCUT ×3 (08:18→17:16)
[2021-04-30] MEDS: vancomycin HCL 750 MG in 0.9 % Sodium Chloride 250 ML 265 MG IV (08:19)
[2021-04-30 08:44] LABS: Glucose, Whole Blood 202 mg/dL (60-115)
--- NOTE | 2021-04-30 09:31 | HO.PM.IMPN ---
Subjective Subjective Date of Service: 04/30/21 Interval History: F/u on med consult for diabetic management in light of diabetic foot ulcer..Pain is controlled, no new issues Review of Systems no fever, no pain in the foot Physical Exam Vital Signs: Vital Signs: Last Vital Signs Temp 98.1 F 04/30/21 07:48 Pulse 88 04/30/21 07:48 Resp 18 04/30/21 07:48 BP 169/70 H 04/30/21 07:48 Pulse Ox 91 L 04/30/21 07:48 BMI result Body Mass Index 33.6 Const: Other: General: AO X 3, no acute distress Resp: CTA bilateral CVS: S1,S2,RRR GI: +BS, NT, no distention Skin: See pictures elsewhere Neuro: motor grossly intact Psych: appropriate affect Objective Data Active Medications Amlodipine Besylate (Amlodipine Besylate 10 Mg Tablet) 10 mg PO DAILY [facility]; Protocol Last Admin: 04/30/21 08:18 Dose: 10 mg Documented by: SALLY Dextrose (Dextrose 50 % 25 Gm/50 Ml Syringe) 25 gm IVPUSH Q15M PRN; Protocol PRN Reason: per Hypoglycemia Standing Ord. Fentanyl (Fentanyl Citrate/Pf 100 Mcg/2 Ml Vial) 50 mcg IVPUSH Q5M PRN; Protocol PRN Reason: Pain, Severe (Pain Scale 7-10) Glucose (Glucose Gel 15 Gm Gel..Gram.) 15 gm PO Q15M PRN; Protocol PRN Reason: per Hypoglycemia Standing Ord. Heparin Sodium (Porcine) (Heparin Sodium,Porcine 5,000 Unit/Ml Vial) 5,000 unit SUBCUT Q12H [facility] Last Admin: 04/30/21 08:16 Dose: 5,000 unit Documented by: SALLY Piperacillin Sod/Tazobactam (Sod 3.375 gm/ Sodium Chloride) 50 mls @ 100 mls/hr IV Q6H [facility] Last Infusion: 04/30/21 08:53 Dose: 0 mls/hr Documented by: SALLY Promethazine HCl 12.5 mg/ (Sodium Chloride) 50.5 mls @ 202 mls/hr IV ONCE PRN PRN Reason: Nausea and Vomiting Lactated Ringer's (Lr) 1,000 mls @ 60 mls/hr IVCONT .[id number] [facility] Last Infusion: 04/30/21 08:20 Dose: 0 mls/hr Documented by: SALLY Sodium Chloride (Ns) 1,000 mls @ 100 mls/hr IVCONT .Q10H [facility] Vancomycin HCl 750 mg/ Sodium (Chloride) 265 mls @ 265 mls/hr IV Q12H [facility] Last Infusion: 04/30/21 08:53 Dose: 265 mls/hr Documented by: SALLY Insulin Glargine (Insulin Glargine,Hum.Rec.Anlog 100 Unit/Ml 10 Ml Vial) 20 unit SUBCUT BEDTIME [facility] Last Admin: 04/29/21 20:15 Dose: 20 unit Documented by: IZZY Insulin Human Lispro (Insulin Lispro 100 Unit/Ml 3 Ml Vial) 0 unit SUBCUT QIDACHS [facility]; Protocol Last Admin: 04/30/21 08:18 Dose: 4 unit Documented by: SALLY Metoprolol Succinate (Metoprolol Succinate Er 100 Mg Tab.Er.24h) 100 mg PO DAILY [facility]; Protocol Last Admin: 04/30/21 08:18 Dose: 100 mg Documented by: SALLY Morphine Sulfate (Morphine Sulfate 2 Mg/Ml Cartridge) 2 mg IVPUSH Q4H PRN; Protocol PRN Reason: Pain, Severe (Pain Scale 7-10) Omeprazole (Omeprazole 20 Mg Capsule.Dr) 20 mg PO DAILY@0630 [facility] Last Admin: 04/30/21 05:29 Dose: 20 mg Documented by: IZZY Ondansetron HCl (Ondansetron Hcl 4 Mg/2 Ml Vial) 4 mg IVPUSH ONCE PRN PRN Reason: Nausea and Vomiting Oxycodone HCl (Oxycodone Hcl Immed Release 5 Mg Tablet) 5 mg PO ONCE PRN PRN Reason: Pain, Severe (Pain Scale 7-10) Oxycodone HCl (Oxycodone Hcl Immed Release 5 Mg Tablet) 10 mg PO Q4H PRN PRN Reason: Pain, Moderate (Pain Scale 4-6 Pharmacy Consult (Consult Rx Perform Med Rec) 1 each MISCELLANE ONCE PRN PRN Reason: Consult order Pharmacy Consult (Consult Rx Vancomycin Dosing) 1 each MISCELLANE DAILY PRN PRN Reason: Consult order Sodium Chloride (0.9 % Sodium Chloride Flush 3 Ml Syringe) 3 ml IVFLUSH QSHIFT [facility] Last Admin: 04/30/21 08:18 Dose: Not Given Documented by: SALLY Non-Admin Reason: IV Running Labs CBC & Chem 7: 04/26/21 15:50 04/30/21 05:08 Labs: Laboratory Results - last 24 hr 04/29/21 04/29/21 04/29/21 11:27 16:05 19:39 Estim Creat Clear Calc Estimated GFR POC Glucose 224 H 226 H 305 H 04/30/21 04/30/21 05:08 07:46 Estim Creat Clear Calc 83.5 Estimated GFR 53 POC Glucose 202 H Microbiology Microbiology Results: Microbiology 04/27/21 Unknown Gram Stain - Final Foot Right Routine Culture - Final Assessment and Plan (1) Hypertension: Status: Acute (2) Diabetic foot infection: Status: Acute (3) Type II diabetes mellitus: Status: Acute Plan 56-year-old male with a past medical history of hypertension, hyperlipidemia, diabetes, recent admission to the hospital for possible HHS/diabetic foot infection was antibiotics; presented to the hospital today with a chief complaint of right foot diabetic foot infection/discharge.? #Diabetic foot infection / necrosis/Sepsis s/p debridment -continue Zosyn/Vanco, cutlure no growth, ID following possible Ertapenem for 6 wks at dc -Angiogram by [facility] on Monday 05/01 #Diabetes-better ccontrol -continue Lantus, SSI, ADA and adjust med as needed #HTN--Controlled, continue Norvasc tomorrow #Chronic AFIB--controlled, Xarelto on hold for surgery saturday DVT prophylaxis--Heparin ? Quality Stroke Does the patient have a stroke diagnosis?: No VTE Prior VTE?: No VTE Risk Level:: Medical - moderate - high VTE Device Contraindication: Treatment Not Indicated VTE Drug Contraindication: Treatment Not Indicated
--- NOTE | 2021-04-30 10:03 | P.PNGS_ITS ---
Subjective Subjective Date of Service: 04/30/21 Interval history: no complaints says he feels well denies pain Physical Exam Verdana 4l Vital Signs: Verdana 4d Verdana 4d Vital Signs: Verdana 4d Verdana 4Bd Last Vital Signs Verdana 4d Pyrometer Mechanic New 4d Pyrometer Mechanic New 4d Temp 98.1 F 04/30/21 07:48 Pyrometer Mechanic New 4d Pulse 88 04/30/21 07:48 Pyrometer Mechanic New 4d Resp 18 04/30/21 07:48 BP 169/70 H 04/30/21 07:48 Pulse Ox 91 L 04/30/21 07:48 BMI result Body Mass Index 33.6 Const: General: comfortable and no acute distress Resp: Effort & Inspection: normal respiratory effort Cardio: Rhythm: abnormal rhythm GI: Palpation (GI): Soft to palpation, not firm and nontender Extrem: Other: right foot - open wounds dorsum and plantar, generally granulating, clean, some fibrinous exudates, dry gangrene of 3rd and 5th, no cellulitis Objective Data Active Medications Amlodipine Besylate (Amlodipine Besylate 10 Mg Tablet) 10 mg PO DAILY [facility]; Protocol Last Admin: 04/30/21 08:18 Dose: 10 mg Documented by: SALLY Dextrose (Dextrose 50 % 25 Gm/50 Ml Syringe) 25 gm IVPUSH Q15M PRN; Protocol PRN Reason: per Hypoglycemia Standing Ord. Fentanyl (Fentanyl Citrate/Pf 100 Mcg/2 Ml Vial) 50 mcg IVPUSH Q5M PRN; [place] col PRN Reason: Pain, Severe (Pain Scale 7-10) Glucose (Glucose Gel 15 Gm Gel..Gram.) 15 gm PO Q15M PRN; Protocol PRN Reason: per Hypoglycemia Standing Ord. Heparin Sodium (Porcine) (Heparin Sodium,Porcine 5,000 Unit/Ml Vial) 5,000 unit SUBCUT Q12H [facility] Last Admin: 04/30/21 08:16 Dose: 5,000 unit Documented by: SALLY Piperacillin Sod/Tazobactam (Sod 3.375 gm/ Sodium Chloride) 50 mls @ 100 mls/hr IV Q6H [facility] [place] Last Infusion: 04/30/21 08:53 Dose: 0 mls/hr Documented by: SALLY Promethazine HCl 12.5 mg/ (Sodium Chloride) 50.5 mls @ 202 mls/hr IV ONCE PRN PRN Reason: Nausea and Vomiting Lactated Ringer's (Lr) 1,000 mls @ 60 mls/hr IVCONT .[id number] [facility] [place] Last Infusion: 04/30/21 08:20 Dose: 0 mls/hr Documented by: SALLY Sodium Chloride (Ns) 1,000 mls @ 100 mls/hr IVCONT .Q10H [facility] [place] Vancomycin HCl 750 mg/ Sodium (Chloride) 265 mls @ 265 mls/hr IV Q12H [facility] [place] Last Infusion: 04/30/21 08:53 Dose: 265 mls/hr Documented by: SALLY Insulin Glargine (Insulin Glargine,Hum.Rec.Anlog 100 Unit/Ml 10 Ml Vial) 20 unit SUBCUT BEDTIME [facility] [place] Last Admin: 04/29/21 20:15 Dose: 20 unit Documented by: IZZY Insulin Human Lispro (Insulin Lispro 100 Unit/Ml 3 Ml Vial) 0 unit SUBCUT QIDACHS [facility]; Protocol Last Admin: 04/30/21 08:18 Dose: 4 unit Documented by: SALLY Metoprolol Succinate (Metoprolol Succinate Er 100 Mg Tab.Er.24h) 100 mg PO DAILY [facility] [place]; Protocol Last Admin: 04/30/21 08:18 Dose: 100 mg Documented by: SALLY Morphine Sulfate (Morphine Sulfate 2 Mg/Ml Cartridge) 2 mg IVPUSH Q4H PRN; Protocol PRN Reason: Pain, Severe (Pain Scale 7-10) Omeprazole (Omeprazole 20 Mg Capsule.Dr) 20 mg PO DAILY@0630 [facility] [place] Last Admin: 04/30/21 05:29 Dose: 20 mg Documented by: IZZY Ondansetron HCl (Ondansetron Hcl 4 Mg/2 Ml Vial) 4 mg IVPUSH ONCE PRN PRN Reason: Nausea and Vomiting Oxycodone HCl (Oxycodone Hcl Immed Release 5 Mg Tablet) 5 mg PO ONCE PRN PRN Reason: Pain, Severe (Pain Scale 7-10) Oxycodone HCl (Oxycodone Hcl Immed Release 5 Mg Tablet) 10 mg PO Q4H PRN PRN Reason: Pain, Moderate (Pain Scale 4-6 Pharmacy Consult (Consult Rx Perform Med Rec) 1 each MISCELLANE ONCE PRN PRN Reason: Consult order Pharmacy Consult (Consult Rx Vancomycin Dosing) 1 each MISCELLANE DAILY PRN PRN Reason: Consult order Sodium Chloride (0.9 % Sodium Chloride Flush 3 Ml Syringe) 3 ml IVFLUSH QSHIFT [facility] [place] Last Admin: 04/30/21 08:18 Dose: Not Given Documented by: SALLY Non-Admin Reason: IV Running Labs CBC & Chem 7: 04/26/21 15:50 04/30/21 05:08 Labs: Laboratory Results - last 24 hr 04/29/21 04/29/21 04/29/21 11:27 16:05 19:39 Estim Creat Clear Calc Estimated GFR POC Glucose 224 H 226 H 305 H 04/30/21 04/30/21 05:08 07:46 Estim Creat Clear Calc 83.5 Estimated GFR 53 POC Glucose 202 H Microbiology Microbiology Results: Microbiology 04/27/21 Unknown Gram Stain - Final Foot Right Routine Culture - Final Procedures Date of Service Date of Service: 04/30/21 Progress Note: A&P Assessment and plan (1) Diabetic foot infection: Status: Acute Assessment and Plan: doing well debridement site looks much better but may need addtional debridement, toe amp await angiogram tomorrow pt wants to save foot as much as possible blood sugar control started on Heparin subq anticoag on hold - angiogram procedure tomorrow dressings changed - wet to dry applied, wrapped in Kerlix Fall Risk Details Current Medications: Current Medications Amlodipine Besylate (Amlodipine Besylate 10 Mg Tablet) 10 mg PO DAILY [facility]; Protocol Last Admin: 04/30/21 08:18 Dose: 10 mg Documented by: Dextrose (Dextrose 50 % 25 Gm/50 Ml Syringe) 25 gm IVPUSH Q15M PRN; Protocol PRN Reason: per Hypoglycemia Standing Ord. Fentanyl (Fentanyl Citrate/Pf 100 Mcg/2 Ml Vial) 50 mcg IVPUSH Q5M PRN; Protocol PRN Reason: Pain, Severe (Pain Scale 7-10) Glucose (Glucose Gel 15 Gm Gel..Gram.) 15 gm PO Q15M PRN; Protocol PRN Reason: per Hypoglycemia Standing Ord. Heparin Sodium (Porcine) (Heparin Sodium,Porcine 5,000 Unit/Ml Vial) 5,000 unit SUBCUT Q12H [facility] [place] Last Admin: 04/30/21 08:16 Dose: 5,000 unit Documented by: Piperacillin Sod/Tazobactam (Sod 3.375 gm/ Sodium Chloride) 50 mls @ 100 mls/hr IV Q6H [facility] [place] Last Infusion: 04/30/21 08:53 Dose: Infused Documented by: Promethazine HCl 12.5 mg/ (Sodium Chloride) 50.5 mls @ 202 mls/hr IV ONCE PRN PRN Reason: Nausea and Vomiting Lactated Ringer's (Lr) 1,000 mls @ 60 mls/hr IVCONT .[id number] [facility] [place] Last Infusion: 04/30/21 08:20 Dose: 0 mls/hr Documented by: Sodium Chloride (Ns) 1,000 mls @ 100 mls/hr IVCONT .Q10H [facility] [place] Vancomycin HCl 750 mg/ Sodium (Chloride) 265 mls @ 265 mls/hr IV Q12H [facility] [place] Last Infusion: 04/30/21 08:53 Dose: 265 mls/hr Documented by: Insulin Glargine (Insulin Glargine,Hum.Rec.Anlog 100 Unit/Ml 10 Ml Vial) 20 unit SUBCUT BEDTIME [facility] [place] Last Admin: 04/29/21 20:15 Dose: 20 unit Documented by: Insulin Human Lispro (Insulin Lispro 100 Unit/Ml 3 Ml Vial) 0 unit SUBCUT QIDACHS [facility]; Protocol Last Admin: 04/30/21 08:18 Dose: 4 unit Documented by: Metoprolol Succinate (Metoprolol Succinate Er 100 Mg Tab.Er.24h) 100 mg PO DAILY [facility]; Protocol Last Admin: 04/30/21 08:18 Dose: 100 mg Documented by: Morphine Sulfate (Morphine Sulfate 2 Mg/Ml Cartridge) 2 mg IVPUSH Q4H PRN; Protocol PRN Reason: Pain, Severe (Pain Scale 7-10) Omeprazole (Omeprazole 20 Mg Capsule.Dr) 20 mg PO DAILY@0630 [facility] [place] Last Admin: 04/30/21 05:29 Dose: 20 mg Documented by: Ondansetron HCl (Ondansetron Hcl 4 Mg/2 Ml Vial) 4 mg IVPUSH ONCE PRN PRN Reason: Nausea and Vomiting Oxycodone HCl (Oxycodone Hcl Immed Release 5 Mg Tablet) 5 mg PO ONCE PRN PRN Reason: Pain, Severe (Pain Scale 7-10) Oxycodone HCl (Oxycodone Hcl Immed Release 5 Mg Tablet) 10 mg PO Q4H PRN PRN Reason: Pain, Moderate (Pain Scale 4-6 Pharmacy Consult (Consult Rx Perform Med Rec) 1 each MISCELLANE ONCE PRN PRN Reason: Consult order Pharmacy Consult (Consult Rx Vancomycin Dosing) 1 each MISCELLANE DAILY PRN PRN Reason: Consult order Sodium Chloride (0.9 % Sodium Chloride Flush 3 Ml Syringe) 3 ml IVFLUSH QSHIFT [facility] Last Admin: 04/30/21 08:18 Dose: Not Given Documented by: Time Spent With Patient Time: Total time spent is greater than 50% in coordination of care (as documented) at patient's floor/unit and/or counseling patient: Time with patient: 15 - 24 minutes Quality Stroke Does the patient have a stroke diagnosis?: No VTE Prior VTE?: No VTE Risk Level:: Medical - moderate - high VTE Device Contraindication: Treatment Not Indicated VTE Drug Contraindication: Treatment Not Indicated
[2021-04-30 12:39] LABS: Glucose, Whole Blood 231 mg/dL (60-115)
[2021-04-30 16:27] LABS: Glucose, Whole Blood 222 mg/dL (60-115)
[2021-04-30 18:38] LABS: Vancomycin Trough 18.4 mcg/mL (10.0-20.0)
--- NOTE | 2021-04-30 18:43 | PHA.PROG ---
Admission Date/Time: April 26, 2021 21:24 Indication: Diabetic Foot Ulcer Weight in k kg Adjusted body weight in K.5 kg [place] body weight in K.5 kg Obesity Dosing Indication % IBW: 144% Serum Creatinine - Last 168 Hours 04/26/21 04/27/21 04/28/21 15:50 09:44 06:06 Creatinine 1.40 1.23 1.45 H 04/29/21 04/30/21 05:53 05:08 Creatinine 1.39 1.39 Estimated CrCl and GFR - Last 168 Hours 04/26/21 04/27/21 04/28/21 15:50 09:44 06:06 Estim Creat Clear Calc 77.7 94.3 80.0 Estimated GFR 52 > 60 50 04/29/21 04/30/21 05:53 05:08 Estim Creat Clear Calc 83.5 83.5 Estimated GFR 53 53 Vancomycin Loading Dose: 1500 mg Current Vancomycin Dosing Regimen: 750 mg Q12H Date and Time for next Vancomycin Level to be drawn: 03/31 @ 1800 Vancomycin Trough 18.4 mcg/mL (10.0-20.0) 04/30/21 18:00 Pharmacist Comments on Vancomycin Plan: Trough today stable compared to last trough drawn after decrease in dose. No change in SCr over 24 hours Will continue same regimen 750 mg Q12H, and drawn another trough tomorrow Pharmacy will monitor renal function daily Deedee Cano, [place] Vancomycin dosing will take advantage of [employer] as a clinical decision support tool that uses Bayesian modeling to calculate individual patient's pharmacokinetic parameters and forecast the patient's drug concentration time course with the target goal AUC 24 range of 400 - 600 mg/L/hr.
--- NOTE | 2021-04-30 19:13 | PHA.PROG ---
Admission Date/Time: April 26, 2021 21:24 Indication: Diabetic Foot Ulcer Weight in k kg Adjusted body weight in K.5 kg [place] body weight in K.5 kg Obesity Dosing Indication % IBW: 144% Serum Creatinine - Last 168 Hours 04/26/21 04/27/21 04/28/21 15:50 09:44 06:06 Creatinine 1.40 1.23 1.45 H 04/29/21 04/30/21 05:53 05:08 Creatinine 1.39 1.39 Estimated CrCl and GFR - Last 168 Hours 04/26/21 04/27/21 04/28/21 15:50 09:44 06:06 Estim Creat Clear Calc 77.7 94.3 80.0 Estimated GFR 52 > 60 50 04/29/21 04/30/21 05:53 05:08 Estim Creat Clear Calc 83.5 83.5 Estimated GFR 53 53 Vancomycin Loading Dose: 1500 mg Current Vancomycin Dosing Regimen: 750 mg Q12H Date and Time for next Vancomycin Level to be drawn: 05/03 @ 0600 Vancomycin Trough 18.4 mcg/mL (10.0-20.0) 04/30/21 18:00 Pharmacist Comments on Vancomycin Plan: Patient is obese, creatinine is stable. No change in vanco trough from previous trough with a decrease in dose. For safety precautions will change to Q24H dosing. The expected AUC is 487 with a trough of 15.7 Start Vancomycin 1500 mg Q24H on 05/01 @ 0800 Pharmacy will continue to monitor renal function daily Deedee Cano PharmD Vancomycin dosing will take advantage of [employer] as a clinical decision support tool that uses Bayesian modeling to calculate individual patient's pharmacokinetic parameters and forecast the patient's drug concentration time course with the target goal AUC 24 range of 400 - 600 mg/L/hr.
[2021-04-30] MEDS: 0.9 % Sodium Chloride Flush 3 ML SYRINGE IVFLUSH ×2 (19:31→22:33)
[2021-04-30 20:18] LABS: Glucose, Whole Blood 258 mg/dL (60-115)
[2021-04-30] MEDS: Insulin Glargine,Hum.rec.anlog 100 UNIT/ML 10 ML VIAL 20 UNIT SUBCUT (22:33)
[2021-05-01] VITALS (14 sets, daily range): BP systolic 128–158; BP diastolic 59–84; PULSE 54–88; RESP 16–18; TEMP 35.5–37; O2SAT 91–99
[2021-05-01] MEDS: Piperacillin Sodium/Tazobactam 3.375 GM in 0.9 % Sodium Chloride 50 ML IV ×4 (02:43→20:38)
[2021-05-01] MEDS: Lactated Ringers 1,000 ML 60 ML IVCONT ×2 (02:45→21:32)
--- NOTE | 2021-05-01 03:43 | PC.NURSE ---
Pt is for Angiogram and possible surgery in the morning, pt is aware, NPO post midnight instructed, [id number], Dr. Rey was updated and said to hold Lispro and give the Lantus.
[2021-05-01] MEDS: Omeprazole 20 MG CAPSULE.DR PO (05:39)
[2021-05-01 06:07] LABS: Creatinine Clr Calc Pharmacy 82.9; Estimated Glomerular Filt Rate 52
[2021-05-01] MEDS: Metoprolol Succinate ER 100 MG TAB.ER.24H PO (07:07)
[2021-05-01] MEDS: amLODIPine Besylate 10 MG TABLET PO (07:07)
[2021-05-01] MEDS: Insulin Lispro 100 UNIT/ML 3 ML VIAL SUBCUT ×2 (07:13→21:32)
[2021-05-01 07:22] LABS: Glucose, Whole Blood 193 mg/dL (60-115)
--- NOTE | 2021-05-01 07:37 | HE.PHANOTE ---
Changed random to 05/02
[2021-05-01] MEDS: vancomycin HCL 1,500 MG in 0.9 % Sodium Chloride 500 ML 333.33 MG IV (08:03)
--- NOTE | 2021-05-01 08:08 | P.PNGS_ITS ---
Subjective Subjective Date of Service: 05/01/21 Interval history: No complaints Denies pain Says he feels well Physical Exam Verdana 4l Vital Signs: Verdana 4d Verdana 4d Vital Signs: Verdana 4d Verdana 4Bd Last Vital Signs Verdana 4d 4d Implementation Coordinator 4d Temp 96 F L 05/01/21 07:02 New 4d Pulse 88 05/01/21 07:02 Implementation Coordinator New 4d Resp 18 05/01/21 07:02 BP 154/73 H 05/01/21 07:02 Pulse Ox 94 05/01/21 07:02 BMI result Body Mass Index 33.6 Const: General: comfortable and no acute distress Resp: Effort & Inspection: normal respiratory effort Cardio: Rhythm: abnormal rhythm GI: Palpation (GI): Soft to palpation and nontender Extrem: Other: Right foot - dressings taken down; open wound dorsum and plantar aspect generally good granulation except for area around the 5th toe with thick fibrinous exudates, debrided with scissors; dry gangrene tip of 3rd toe and 5th toe Objective Data Active Medications Amlodipine Besylate (Amlodipine Besylate 10 Mg Tablet) 10 mg PO DAILY [facility]; Protocol Last Admin: 05/01/21 07:07 Dose: 10 mg Documented by: STEPHENIE Dextrose (Dextrose 50 % 25 Gm/50 Ml Syringe) 25 gm IVPUSH Q15M PRN; Protocol PRN Reason: per Hypoglycemia Standing Ord. Fentanyl (Fentanyl Citrate/Pf 100 Mcg/2 Ml Vial) 50 mcg IVPUSH Q5M PRN; Protocol PRN Reason: Pain, Severe (Pain Scale 7-10) Glucose (Glucose Gel 15 Gm Gel..Gram.) 15 gm PO Q15M PRN; Protocol PRN Reason: per Hypoglycemia Standing Ord. Heparin Sodium (Porcine) (Heparin Sodium,Porcine 5,000 Unit/Ml Vial) 5,000 unit SUBCUT Q12H [facility] Last Admin: 05/01/21 07:55 Dose: Not Given Documented by: COTEMA Non-Admin Reason: preop angiogram Piperacillin Sod/Tazobactam (Sod 3.375 gm/ Sodium Chloride) 50 mls @ 100 mls/hr IV Q6H [facility] Last Infusion: 05/01/21 07:55 Dose: 0 mls/hr Documented by: COTEMA Promethazine HCl 12.5 mg/ (Sodium Chloride) 50.5 mls @ 202 mls/hr IV ONCE PRN PRN Reason: Nausea and Vomiting Sodium Chloride (Ns) 1,000 mls @ 100 mls/hr IVCONT .Q10H [facility] Lactated Ringer's (Lr) 1,000 mls @ 60 mls/hr IVCONT .[id number] [facility] Last Admin: 05/01/21 02:45 Dose: 60 mls/hr Documented by: AVILA Vancomycin HCl 1,500 mg/ (Sodium Chloride) 500 mls @ 333.333 mls/hr IV Q24H [facility] Last Admin: 05/01/21 08:03 Dose: 333.33 mls/hr Documented by: COTEMA Insulin Glargine (Insulin Glargine,Hum.Rec.Anlog 100 Unit/Ml 10 Ml Vial) 20 unit SUBCUT BEDTIME [facility] Last Admin: 04/30/21 22:33 Dose: 20 unit Documented by: AVILA Insulin Human Lispro (Insulin Lispro 100 Unit/Ml 3 Ml Vial) 0 unit SUBCUT QIDACHS [facility]; Protocol Last Admin: 05/01/21 07:13 Dose: 2 unit Documented by: STEPHENIE Metoprolol Succinate (Metoprolol Succinate Er 100 Mg Tab.Er.24h) 100 mg PO MARINA Y [facility]; Protocol Last Admin: 05/01/21 07:07 Dose: 100 mg Documented by: STEPHENIE Morphine Sulfate (Morphine Sulfate 2 Mg/Ml Cartridge) 2 mg IVPUSH Q4H PRN; Protocol PRN Reason: Pain, Severe (Pain Scale 7-10) Omeprazole (Omeprazole 20 Mg Capsule.Dr) 20 mg PO DAILY@0630 [facility] Last Admin: 05/01/21 05:39 Dose: 20 mg Documented by: AVILA Ondansetron HCl (Ondansetron Hcl 4 Mg/2 Ml Vial) 4 mg IVPUSH ONCE PRN PRN Reason: Nausea and Vomiting Oxycodone HCl (Oxycodone Hcl Immed Release 5 Mg Tablet) 5 mg PO ONCE PRN PRN Reason: Pain, Severe (Pain Scale 7-10) Oxycodone HCl (Oxycodone Hcl Immed Release 5 Mg Tablet) 10 mg PO Q4H PRN PRN Reason: Pain, Moderate (Pain Scale 4-6 Pharmacy Consult (Consult Rx Perform Med Rec) 1 each MISCELLANE ONCE PRN PRN Reason: Consult order Pharmacy Consult (Consult Rx Vancomycin Dosing) 1 each MISCELLANE DAILY PRN PRN Reason: Consult order Sodium Chloride (0.9 % Sodium Chloride Flush 3 Ml Syringe) 3 ml IVFLUSH QSHIFT [facility] Last Admin: 04/30/21 22:33 Dose: 3 ml Documented by: AVILA Labs CBC & Chem 7: 04/26/21 15:50 05/01/21 05:30 Labs: Laboratory Results - last 24 hr 04/30/21 04/30/21 04/30/21 07:46 11:26 15:50 Estim Creat Clear Calc Estimated GFR POC Glucose 202 H 231 H 222 H Vancomycin Trough 04/30/21 04/30/21 05/01/21 18:00 19:53 05:30 Estim Creat Clear Calc 82.9 Estimated GFR 52 POC Glucose 258 H Vancomycin Trough 18.4 05/01/21 07:02 Estim Creat Clear Calc Estimated GFR POC Glucose 193 H Vancomycin Trough Procedures Date of Service Date of Service: 05/01/21 Progress Note: A&P Assessment and plan (1) Diabetic foot infection: Status: Acute Assessment and Plan: Status post extensive debridement, right foot Dressings changed - wet to dry applied after further debridement of area around the 5th toe Foot wrapped in Kerlix roll Patient scheduled for angiogram today Continue wound care Antibiotics Fall Risk Details Current Medications: Current Medications Amlodipine Besylate (Amlodipine Besylate 10 Mg Tablet) 10 mg PO DAILY [facility]; Protocol Last Admin: 05/01/21 07:07 Dose: 10 mg Documented by: Dextrose (Dextrose 50 % 25 Gm/50 Ml Syringe) 25 gm IVPUSH Q15M PRN; Protocol PRN Reason: per Hypoglycemia Standing Ord. Fentanyl (Fentanyl Citrate/Pf 100 Mcg/2 Ml Vial) 50 mcg IVPUSH Q5M PRN; Protocol PRN Reason: Pain, Severe (Pain Scale 7-10) Glucose (Glucose Gel 15 Gm Gel..Gram.) 15 gm PO Q15M PRN; Protocol PRN Reason: per Hypoglycemia Standing Ord. Heparin Sodium (Porcine) (Heparin Sodium,Porcine 5,000 Unit/Ml Vial) 5,000 unit SUBCUT Q12H [facility] Last Admin: 05/01/21 07:55 Dose: Not Given Documented by: Piperacillin Sod/Tazobactam (Sod 3.375 gm/ Sodium Chloride) 50 mls @ 100 mls/hr IV Q6H [facility] Last Infusion: 05/01/21 07:55 Dose: Infused Documented by: Promethazine HCl 12.5 mg/ (Sodium Chloride) 50.5 mls @ 202 mls/hr IV ONCE PRN PRN Reason: Nausea and Vomiting Sodium Chloride (Ns) 1,000 mls @ 100 mls/hr IVCONT .Q10H [facility] Lactated Ringer's (Lr) 1,000 mls @ 60 mls/hr IVCONT .[id number] [facility] Last Admin: 05/01/21 02:45 Dose: 60 mls/hr Documented by: Vancomycin HCl 1,500 mg/ (Sodium Chloride) 500 mls @ 333.333 mls/hr IV Q24H [facility] Last Admin: 05/01/21 08:03 Dose: 333.33 mls/hr Documented by: Insulin Glargine (Insulin Glargine,Hum.Rec.Anlog 100 Unit/Ml 10 Ml Vial) 20 unit SUBCUT BEDTIME [facility] Last Admin: 04/30/21 22:33 Dose: 20 unit Documented by: Insulin Human Lispro (Insulin Lispro 100 Unit/Ml 3 Ml Vial) 0 unit SUBCUT QIDACHS [facility]; Protocol Last Admin: 05/01/21 07:13 Dose: 2 unit Documented by: Metoprolol Succinate (Metoprolol Succinate Er 100 Mg Tab.Er.24h) 100 mg PO DAILY [facility]; Protocol Last Admin: 05/01/21 07:07 Dose: 100 mg Documented by: Morphine Sulfate (Morphine Sulfate 2 Mg/Ml Cartridge) 2 mg IVPUSH Q4H [facility]; Protocol PRN Reason: Pain, Severe (Pain Scale 7-10) Omeprazole (Omeprazole 20 Mg Capsule.Dr) 20 mg PO DAILY@0630 [facility] Last Admin: 05/01/21 05:39 Dose: 20 mg Documented by: Ondansetron HCl (Ondansetron Hcl 4 Mg/2 Ml Vial) 4 mg IVPUSH ONCE PRN PRN Reason: Nausea and Vomiting Oxycodone HCl (Oxycodone Hcl Immed Release 5 Mg Tablet) 5 mg PO ONCE PRN PRN Reason: Pain, Severe (Pain Scale 7-10) Oxycodone HCl (Oxycodone Hcl Immed Release 5 Mg Tablet) 10 mg PO Q4H PRN PRN Reason: Pain, Moderate (Pain Scale 4-6 Pharmacy Consult (Consult Rx Perform Med Rec) 1 each MISCELLANE ONCE PRN PRN Reason: Consult order Pharmacy Consult (Consult Rx Vancomycin Dosing) 1 each MISCELLANE DAILY PRN PRN Reason: Consult order Sodium Chloride (0.9 % Sodium Chloride Flush 3 Ml Syringe) 3 ml IVFLUSH QSHIFT [facility] Last Admin: 04/30/21 22:33 Dose: 3 ml Documented by: Time Spent With Patient Time: Total time spent is greater than 50% in coordination of care (as documented) at patient's floor/unit and/or counseling patient: Time with patient: 15 - 24 minutes Quality Stroke Does the patient have a stroke diagnosis?: No VTE Prior VTE?: No VTE Risk Level:: Medical - moderate - high VTE Device Contraindication: N/A - Device Ordered VTE Drug Contraindication: Treatment Not Indicated
--- NOTE | 2021-05-01 10:20 | HO.PM.IMPN ---
Subjective Subjective Date of Service: 05/01/21 Interval History: F/u on med consult for diabetic management in light of diabetic foot ulcer..Pain is controlled, no new issues--awaiting angiogram Review of Systems no fever, no pain in the foot Physical Exam Vital Signs: Vital Signs: Last Vital Signs Temp 96 F L 05/01/21 07:02 Pulse 88 05/01/21 09:42 Resp 18 05/01/21 07:02 BP 154/73 H 05/01/21 09:42 Pulse Ox 94 05/01/21 09:42 BMI result Body Mass Index 33.6 Const: Other: General: AO X 3, no acute distress Resp: CTA bilateral CVS: S1,S2,RRR GI: +BS, NT, no distention Skin: See pictures elsewhere Neuro: motor grossly intact Psych: appropriate affect Objective Data Active Medications Amlodipine Besylate (Amlodipine Besylate 10 Mg Tablet) 10 mg PO DAILY [facility]; Protocol Last Admin: 05/01/21 07:07 Dose: 10 mg Documented by: STEPHENIE Dextrose (Dextrose 50 % 25 Gm/50 Ml Syringe) 25 gm IVPUSH Q15M PRN; Protocol PRN Reason: per Hypoglycemia Standing Ord. Fentanyl (Fentanyl Citrate/Pf 100 Mcg/2 Ml Vial) 50 mcg IVPUSH Q5M PRN; Protocol PRN Reason: Pain, Severe (Pain Scale 7-10) Glucose (Glucose Gel 15 Gm Gel..Gram.) 15 gm PO Q15M PRN; Protocol PRN Reason: per Hypoglycemia Standing Ord. Heparin Sodium (Porcine) (Heparin Sodium,Porcine 5,000 Unit/Ml Vial) 5,000 unit SUBCUT Q12H [facility] Last Admin: 05/01/21 07:55 Dose: Not Given Documented by: COTEMA Non-Admin Reason: preop angiogram Piperacillin Sod/Tazobactam (Sod 3.375 gm/ Sodium Chloride) 50 mls @ 100 mls/hr IV Q6H [facility] Last Infusion: 05/01/21 07:55 Dose: 0 mls/hr Documented by: COTEMA Promethazine HCl 12.5 mg/ (Sodium Chloride) 50.5 mls @ 202 mls/hr IV ONCE PRN PRN Reason: Nausea and Vomiting Sodium Chloride (Ns) 1,000 mls @ 100 mls/hr IVCONT .Q10H [facility] Lactated Ringer's (Lr) 1,000 mls @ 60 mls/hr IVCONT .[id number] [facility] Last Admin: 05/01/21 02:45 Dose: 60 mls/hr Documented by: AVILA Vancomycin HCl 1,500 mg/ (Sodium Chloride) 500 mls @ 333.333 mls/hr IV Q24H [facility] Last Infusion: 05/01/21 09:36 Dose: 0 mls/hr Documented by: MENA Insulin Glargine (Insulin Glargine,Hum.Rec.Anlog 100 Unit/Ml 10 Ml Vial) 20 unit SUBCUT BEDTIME [facility] Last Admin: 04/30/21 22:33 Dose: 20 unit Documented by: AVILA Insulin Human Lispro (Insulin Lispro 100 Unit/Ml 3 Ml Vial) 0 unit SUBCUT QIDACHS [facility]; Protocol Last Admin: 05/01/21 07:13 Dose: 2 unit Documented by: STEPHENIE Metoprolol Succinate (Metoprolol Succinate Er 100 Mg Tab.Er.24h) 100 mg PO DAILY [facility]; Protocol Last Admin: 05/01/21 07:07 Dose: 100 mg Documented by: STEPHENIE Morphine Sulfate (Morphine Sulfate 2 Mg/Ml Cartridge) 2 mg IVPUSH Q4H [facility]; Protocol PRN Reason: Pain, Severe (Pain Scale 7-10) Omeprazole (Omeprazole 20 Mg Capsule.Dr) 20 mg PO DAILY@0630 [facility] Last Admin: 05/01/21 05:39 Dose: 20 mg Documented by: AVILA Ondansetron HCl (Ondansetron Hcl 4 Mg/2 Ml Vial) 4 mg IVPUSH ONCE PRN PRN Reason: Nausea and Vomiting Oxycodone HCl (Oxycodone Hcl Immed Release 5 Mg Tablet) 5 mg PO ONCE PRN PRN Reason: Pain, Severe (Pain Scale 7-10) Oxycodone HCl (Oxycodone Hcl Immed Release 5 Mg Tablet) 10 mg PO Q4H PRN PRN Reason: Pain, Moderate (Pain Scale 4-6 Pharmacy Consult (Consult Rx Perform Med Rec) 1 each MISCELLANE ONCE PRN PRN Reason: Consult order Pharmacy Consult (Consult Rx Vancomycin Dosing) 1 each MISCELLANE DAILY PRN PRN Reason: Consult order Sodium Chloride (0.9 % Sodium Chloride Flush 3 Ml Syringe) 3 ml IVFLUSH QSHIFT [facility] Last Admin: 04/30/21 22:33 Dose: 3 ml Documented by: AVILA Labs CBC & Chem 7: 04/26/21 15:50 05/01/21 05:30 Labs: Laboratory Results - last 24 hr 04/30/21 04/30/21 04/30/21 11:26 15:50 18:00 Estim Creat Clear Calc Estimated GFR POC Glucose 231 H 222 H Vancomycin Trough 18.4 04/30/21 05/01/21 05/01/21 19:53 05:30 07:02 Estim Creat Clear Calc 82.9 Estimated GFR 52 POC Glucose 258 H 193 H Vancomycin Trough Assessment and Plan (1) Hypertension: Status: Acute (2) Diabetic foot infection: Status: Acute (3) Type II diabetes mellitus: Status: Acute Plan 56-year-old male with a past medical history of hypertension, hyperlipidemia, diabetes, recent admission to the hospital for possible HHS/diabetic foot infection was antibiotics; presented to the hospital today with a chief complaint of right foot diabetic foot infection/discharge.? #Diabetic foot infection / necrosis/Sepsis s/p debridment -continue Zosyn/Vanco, cutlure no growth, ID following possible Ertapenem for 6 wks at dc -Angiogram by [facility] on Monday 05/01--that is today #Diabetes-better ccontrol -continue Lantus, SSI, ADA and adjust med as needed #HTN--Controlled, continue Norvasc tomorrow #Chronic AFIB--controlled, Xarelto on hold for surgery saturday DVT prophylaxis--Heparin ? Quality Stroke Does the patient have a stroke diagnosis?: No VTE Prior VTE?: No VTE Risk Level:: Medical - moderate - high VTE Device Contraindication: N/A - Device Ordered VTE Drug Contraindication: Treatment Not Indicated
[2021-05-01 11:20] LABS: Glucose, Whole Blood 167 mg/dL (60-115)
--- NOTE | 2021-05-01 11:57 | PC.NURSE ---
Skin/wound assessment completed today. Patient has dibetic ulcers to right foot and eschar to 5th toe. #rd and 4th toe have gangrene. Dr. Crowell debrided ulcers and applied a wet to dry dressing.
--- NOTE | 2021-05-01 14:55 | W.PM.OPN ---
Operative Note Operative Note Date of Service: 05/01/21 Narrative: Angiogram report from [facility] Preoperative diagnosis: Atherosclerosis of Right lower extremity with nonhealing ulcer Postoperative diagnosis: Same Procedure: 1. Ultrasound-guided left common femoral access 2. Aortogram with right lower extremity runoff Surgeon:Ramiro Figueredo M.D., FACS, [employer] Wafer Inspector:None Anesthesia: Local with moderate conscious sedation. Total intraservice moderate sedation time was 25 minutes. I monitored the patient's level of consciousness and physiologic status continuously throughout the procedure. Specimens:none Drains:none Estimated blood loss: Less than 10 ml Implant: none Indications: 56-year-old diabetic gentleman with a history of smoking had nonpalpable pulses. He has a nonhealing ulcer. He did have noninvasive testing with questionable tibial disease. Overall noninvasive testing was not terribly bad. Due to the nonhealing nature the ulcers decision was made to undergo angiogram. The patient has signed the informed consent after reviewing risks, complications, benefits, and alternatives previously discussed with the patient. The patient was given the opportunity to ask any additional questions or voice any concerns. All questions were answered to the patient's satisfaction. Procedure in detail: Patient was brought to the angiography suite prior to which a time-out was called for patient identification and site verification. Bilateral groins were prepped and draped in the standard surgical fashion. Under ultrasound guidance Left common femoral was punctured with micro puncture needle and wire. Subsequently a precision 5 Macedonian sheath was then placed. Bentson wire was advanced to the level of the aorta. 5 Macedonian Flush catheter was brought up and parked at the level of the renal arteries. Aortogram was then undertaken. Catheter was brought down to the level of the iliac bifurcation. Iliacs were subsequently imaged. Catheter was then brought in up and over to the right side SFA. Runoff study was then undertaken. no intervention was indicated. Catheter wire sheath was removed. 10 minutes of direct pressure was held. Patient tolerated the procedure well. Returned to recovery with stable vitals. Interpretation of films: 1. Ultrasound demonstrates appropriate femoral puncture. Image of which was saved. 2. Aortogram demonstrates appropriate caliber aorta. Minimal disease. Appropriate take-off of the renals. 3. Iliac images demonstrate No significant disease 4. right Leg Common femoral artery: no significant disease Profundus Femoris: No significant disease Superficial femoral artery: patent with minimal disease at [place] Popliteal artery (p1,p2,p3): patent Anterior tibial artery: patent Peroneal artery: patent Posterior tibial artery: patent Dorsalis pedis/plantar arch: incomplete arch but adequate supply to heal the foot Conclusion: 1. successful diagnostic angiogram with no intervention indicated 2. Anticoagulation status: resume prior medication no change This note is constructed using voice recognition software. While every effort has been made to ensure accuracy, cutting machine fixer errors may have been included. Thank you for allowing me to participate in the care of your patient. Yours sincerely, Ramiro Figueredo MD, FACS, R.P.V.I.
[2021-05-01] MEDS: 0.9 % Sodium Chloride Flush 3 ML SYRINGE IVFLUSH ×2 (17:42→20:38)
[2021-05-01] MEDS: Heparin Sodium,Porcine 5,000 UNIT/ML VIAL 5000 UNIT SUBCUT ×2 (17:42→20:38)
[2021-05-01 17:45] LABS: Glucose, Whole Blood 119 mg/dL (60-115)
[2021-05-01] MEDS: Insulin Glargine,Hum.rec.anlog 100 UNIT/ML 10 ML VIAL 20 UNIT SUBCUT (21:32)
[2021-05-01 21:42] LABS: Glucose, Whole Blood 214 mg/dL (60-115)
[2021-05-02] VITALS (8 sets, daily range): BP systolic 114–146; BP diastolic 61–77; PULSE 83–88; RESP 16–18; TEMP 36.6–37.1; O2SAT 93–96
[2021-05-02] MEDS: Piperacillin Sodium/Tazobactam 3.375 GM in 0.9 % Sodium Chloride 50 ML IV ×4 (01:59→19:37)
[2021-05-02] MEDS: Omeprazole 20 MG CAPSULE.DR PO (05:44)
[2021-05-02 06:52] LABS: Creatinine Clr Calc Pharmacy 82.9; Estimated Glomerular Filt Rate 52
[2021-05-02 07:19] LABS: Vancomycin Random 17.6 mcg/mL (15-20)
--- NOTE | 2021-05-02 07:34 | HE.PHANOTE ---
pt vanco trough 17.6, cr unchanged from yesterday, next trough 05/04@0600
[2021-05-02 07:41] LABS: Glucose, Whole Blood 176 mg/dL (60-115)
[2021-05-02] MEDS: 0.9 % Sodium Chloride Flush 3 ML SYRINGE IVFLUSH ×2 (08:32→20:12)
[2021-05-02] MEDS: Insulin Lispro 100 UNIT/ML 3 ML VIAL SUBCUT ×4 (08:32→20:11)
[2021-05-02] MEDS: amLODIPine Besylate 10 MG TABLET PO (08:32)
[2021-05-02] MEDS: Metoprolol Succinate ER 100 MG TAB.ER.24H PO (08:32)
[2021-05-02] MEDS: Heparin Sodium,Porcine 5,000 UNIT/ML VIAL 5000 UNIT SUBCUT (08:32)
--- NOTE | 2021-05-02 09:46 | PM.PNGS ---
Subjective Subjective Date of Service: 05/02/21 Interval history: denies complaints had angiogram yesterday - uneventful, tolerated well denies foot pain Physical Exam Vital Signs: Vital Signs: Last Vital Signs Temp 97.9 F 05/02/21 09:15 Pulse 84 05/02/21 09:15 Resp 16 05/02/21 09:15 BP 146/71 H 05/02/21 09:15 Pulse Ox 96 05/02/21 09:15 BMI result Body Mass Index 33.6 Const: General: comfortable and no acute distress Resp: Effort & Inspection: normal respiratory effort Cardio: Rhythm: abnormal rhythm GI: Palpation (GI): Soft to palpation Extrem: Other: right foot - open wounds dorsum and plantar aspect, mostly with good granulation, some patchy fibrinous exudates, 5th toe with dry gangrene, 3rd toe with dry gangrene at the tip Objective Data Active Medications Acetaminophen (Acetaminophen 325 Mg Tablet) 650 mg PO Q6H PRN PRN Reason: Pain, Mild (Pain Scale 1-3) Amlodipine Besylate (Amlodipine Besylate 10 Mg Tablet) 10 mg PO DAILY [facility]; Protocol Last Admin: 05/02/21 08:32 Dose: 10 mg Documented by: COTEMA Dextrose (Dextrose 50 % 25 Gm/50 Ml Syringe) 25 gm IVPUSH Q15M PRN; Protocol PRN Reason: per Hypoglycemia Standing Ord. Fentanyl (Fentanyl Citrate/Pf 100 Mcg/2 Ml Vial) 50 mcg IVPUSH Q5M PRN; Protocol PRN Reason: Pain, Severe (Pain Scale 7-10) Glucose (Glucose Gel 15 Gm Gel..Gram.) 15 gm PO Q15M PRN; Protocol PRN Reason: per Hypoglycemia Standing Ord. Heparin Sodium (Porcine) (Heparin Sodium,Porcine 5,000 Unit/Ml Vial) 5,000 unit SUBCUT Q12H [facility] Last Admin: 05/02/21 08:32 Dose: 5,000 unit Documented by: COTEMA Piperacillin Sod/Tazobactam (Sod 3.375 gm/ Sodium Chloride) 50 mls @ 100 mls/hr IV Q6H [facility] Last Infusion: 05/02/21 09:05 Dose: 0 mls/hr Documented by: COTEMA Promethazine HCl 12.5 mg/ (Sodium Chloride) 50.5 mls @ 202 mls/hr IV ONCE PRN PRN Reason: Nausea and Vomiting Sodium Chloride (Ns) 1,000 mls @ 100 mls/hr IVCONT .Q10H [facility] Last Admin: 05/02/21 05:43 Dose: Not Given Documented by: AVILA Non-Admin Reason: completed Lactated Ringer's (Lr) 1,000 mls @ 60 mls/hr IVCONT .[id number] [facility] Last Admin: 05/01/21 21:32 Dose: 60 mls/hr Documented by: AVILA Vancomycin HCl 1,500 mg/ (Sodium Chloride) 500 mls @ 333.333 mls/hr IV Q24H [facility] Last Infusion: 05/01/21 09:36 Dose: 0 mls/hr Documented by: EVERETTEMA Insulin Glargine (Insulin Glargine,Hum.Rec.Anlog 100 Unit/Ml 10 Ml Vial) 20 unit SUBCUT BEDTIME [facility] Last Admin: 05/01/21 21:32 Dose: 20 unit Documented by: AVILA Insulin Human Lispro (Insulin Lispro 100 Unit/Ml 3 Ml Vial) 0 unit SUBCUT QIDACHS [facility]; Protocol Last Admin: 05/02/21 08:32 Dose: 2 unit Documented by: MENA Metoprolol Succinate (Metoprolol Succinate Er 100 Mg Tab.Er.24h) 100 mg PO DAILY [facility]; Protocol Last Admin: 05/02/21 08:32 Dose: 100 mg Documented by: MENA Morphine Sulfate (Morphine Sulfate 2 Mg/Ml Cartridge) 2 mg IVPUSH Q4H PRN; Protocol PRN Reason: Pain, Severe (Pain Scale 7-10) Morphine Sulfate (Morphine Sulfate 4 Mg/Ml Cartridge) 4 mg IVPUSH Q2H PRN; Protocol PRN Reason: Pain, Severe (Pain Scale 7-10) Omeprazole (Omeprazole 20 Mg Capsule.Dr) 20 mg PO DAILY@0630 [facility] Last Admin: 05/02/21 05:44 Dose: 20 mg Documented by: AVILA Ondansetron HCl (Ondansetron Hcl 4 Mg/2 Ml Vial) 4 mg IVPUSH ONCE PRN PRN Reason: Nausea and Vomiting Oxycodone HCl (Oxycodone Hcl Immed Release 5 Mg Tablet) 5 mg PO ONCE PRN PRN Reason: Pain, Severe (Pain Scale 7-10) Oxycodone HCl (Oxycodone Hcl Immed Release 5 Mg Tablet) 10 mg PO Q4H PRN PRN Reason: Pain, Moderate (Pain Scale 4-6 Pharmacy Consult (Consult Rx Perform Med Rec) 1 each MISCELLANE ONCE PRN PRN Reason: Consult order Pharmacy Consult (Consult Rx Vancomycin Dosing) 1 each MISCELLANE DAILY PRN PRN Reason: Consult order Sodium Chloride (0.9 % Sodium Chloride Flush 3 Ml Syringe) 3 ml IVFLUSH QSHIFT [facility] Last Admin: 05/02/21 08:32 Dose: 3 ml Documented by: COTEMA Labs CBC & Chem 7: 04/26/21 15:50 05/02/21 06:28 Labs: Laboratory Results - last 24 hr 05/01/21 05/01/21 05/01/21 11:17 17:33 21:27 Estim Creat Clear Calc Estimated GFR POC Glucose 167 H 119 H 214 H Random Vancomycin 05/02/21 05/02/21 05/02/21 06:28 06:28 07:26 Estim Creat Clear Calc 82.9 Estimated GFR 52 POC Glucose 176 H Random Vancomycin 17.6 Microbiology Microbiology Results: Microbiology 04/26/21 19:42 Blood Culture - Final Blood - Venous No growth after 5 days. 04/26/21 18:39 Blood Culture - Final Blood - Venous No growth after 5 days. Procedures Date of Service Date of Service: 05/02/21 Progress Note: A&P Assessment and plan (1) Diabetic foot infection: Status: Acute Assessment and Plan: status post debridement dressings changed - much improved, good granulation tissue applied alginate dressings wrapped the foot in Kerlix roll keep foot elevated antibiotics will need visiting nurse wound care angiogram shows good blood supply to foot Fall Risk Details Current Medications: Current Medications Acetaminophen (Acetaminophen 325 Mg Tablet) 650 mg PO Q6H PRN PRN Reason: Pain, Mild (Pain Scale 1-3) Amlodipine Besylate (Amlodipine Besylate 10 Mg Tablet) 10 mg PO DAILY [facility]; Protocol Last Admin: 05/02/21 08:32 Dose: 10 mg Documented by: Dextrose (Dextrose 50 % 25 Gm/50 Ml Syringe) 25 gm IVPUSH Q15M PRN; Protocol PRN Reason: per Hypoglycemia Standing Ord. Fentanyl (Fentanyl Citrate/Pf 100 Mcg/2 Ml Vial) 50 mcg IVPUSH Q5M PRN; Protocol PRN Reason: Pain, Severe (Pain Scale 7-10) Glucose (Glucose Gel 15 Gm Gel..Gram.) 15 gm PO Q15M PRN; Protocol PRN Reason: per Hypoglycemia Standing Ord. Heparin Sodium (Porcine) (Heparin Sodium,Porcine 5,000 Unit/Ml Vial) 5,000 unit SUBCUT Q12H [facility] Last Admin: 05/02/21 08:32 Dose: 5,000 unit Documented by: Piperacillin Sod/Tazobactam (Sod 3.375 gm/ Sodium Chloride) 50 mls @ 100 mls/hr IV Q6H [facility] Last Infusion: 05/02/21 09:05 Dose: Infused Documented by: Promethazine HCl 12.5 mg/ (Sodium Chloride) 50.5 mls @ 202 mls/hr IV ONCE PRN PRN Reason: Nausea and Vomiting Sodium Chloride (Ns) 1,000 mls @ 100 mls/hr IVCONT .Q10H [facility] Last Admin: 05/02/21 05:43 Dose: Not Given Documented by: Lactated Ringer's (Lr) 1,000 mls @ 60 mls/hr IVCONT .[id number] [facility] Last Admin: 05/01/21 21:32 Dose: 60 mls/hr Documented by: Vancomycin HCl 1,500 mg/ (Sodium Chloride) 500 mls @ 333.333 mls/hr IV Q24H [facility] Last Infusion: 05/01/21 09:36 Dose: Infused Documented by: Insulin Glargine (Insulin Glargine,Hum.Rec.Anlog 100 Unit/Ml 10 Ml Vial) 20 unit SUBCUT BEDTIME [facility] Last Admin: 05/01/21 21:32 Dose: 20 unit Documented by: Insulin Human Lispro (Insulin Lispro 100 Unit/Ml 3 Ml Vial) 0 unit SUBCUT QIDACHS [facility]; Protocol Last Admin: 05/02/21 08:32 Dose: 2 unit Documented by: Metoprolol Succinate (Metoprolol Succinate Er 100 Mg Tab.Er.24h) 100 mg PO DAILY [facility]; Protocol Last Admin: 05/02/21 08:32 Dose: 100 mg Documented by: Morphine Sulfate (Morphine Sulfate 2 Mg/Ml Cartridge) 2 mg IVPUSH Q4H PRN; Protocol PRN Reason: Pain, Severe (Pain Scale 7-10) Morphine Sulfate (Morphine Sulfate 4 Mg/Ml Cartridge) 4 mg IVPUSH Q2H PRN; Protocol PRN Reason: Pain, Severe (Pain Scale 7-10) Omeprazole (Omeprazole 20 Mg Capsule.Dr) 20 mg PO DAILY@0630 [facility] Last Admin: 05/02/21 05:44 Dose: 20 mg Documented by: Ondansetron HCl (Ondansetron Hcl 4 Mg/2 Ml Vial) 4 mg IVPUSH ONCE PRN PRN Reason: Nausea and Vomiting Oxycodone HCl (Oxycodone Hcl Immed Release 5 Mg Tablet) 5 mg PO ONCE PRN PRN Reason: Pain, Severe (Pain Scale 7-10) Oxycodone HCl (Oxycodone Hcl Immed Release 5 Mg Tablet) 10 mg PO Q4H PRN PRN Reason: Pain, Moderate (Pain Scale 4-6 Pharmacy Consult (Consult Rx Perform Med Rec) 1 each MISCELLANE ONCE PRN PRN Reason: Consult order Pharmacy Consult (Consult Rx Vancomycin Dosing) 1 each MISCELLANE DAILY PRN PRN Reason: Consult order Sodium Chloride (0.9 % Sodium Chloride Flush 3 Ml Syringe) 3 ml IVFLUSH QSHIFT [facility] Last Admin: 05/02/21 08:32 Dose: 3 ml Documented by: Time Spent With Patient Time: Total time spent is greater than 50% in coordination of care (as documented) at patient's floor/unit and/or counseling patient: Time with patient: 15 - 24 minutes Quality Stroke Does the patient have a stroke diagnosis?: No VTE Prior VTE?: No VTE Risk Level:: Medical - moderate - high VTE Device Contraindication: N/A - Device Ordered VTE Drug Contraindication: Treatment Not Indicated
[2021-05-02] MEDS: vancomycin HCL 1,500 MG in 0.9 % Sodium Chloride 500 ML 333.33 MG IV (10:08)
--- NOTE | 2021-05-02 10:32 | P.PNVS_ITS ---
Subjective Subjective Date of Service: 05/02/21 Patient reports: no new complaints Interval history: 56-year-old diabetic gentleman with nonhealing right foot ulcer is postop day 1 status post endovascular intervention. He had no events overnight. Doing relatively well. Now for routine postprocedure follow-up. Physical Exam Vital Signs: Vital Signs: Last Vital Signs Temp 97.9 F 05/02/21 09:15 Pulse 84 05/02/21 09:15 Resp 16 05/02/21 09:15 BP 146/71 H 05/02/21 09:15 Pulse Ox 96 05/02/21 09:15 BMI result Body Mass Index 33.6 Const: General: cooperative, healthy appearing and no acute distress Orientation/consciousness: oriented to person, oriented to place and oriented to time HENMT: Head: Yes normal to inspection Neck: Carotids: no bruits Chest: Chest palpation & inspection: normal inspection of the chest Resp: Effort & Inspection: normal respiratory effort and able to speak in complete sentences Auscultation: clear to auscultation bilaterally Cardio: Rate: regular rate Heart sounds: S1 normal heart sound present and S2 normal heart sound present Peripheral pulses: dorsalis pedis present (Bilateral DP signals) GI: Inspection: Yes normal to inspection Skin: General skin exam: no rashes or lesions noted Wounds: wounds noted (Right foot gangrene) Neuro: General: oriented to person, oriented to place, oriented to time and CN's II-XI intact bilaterally Extrem: General: Yes normal to inspection, Yes full ROM and Yes no clubbing, cyanosis or edema Psych: Appearance: grossly normal and well kempt Speech and movement: Normal speech and movement present Affect: normal affect Progress Note: A&P Assessment and plan (1) Diabetic foot infection: Status: Acute Assessment and Plan: In short patient has a Persaud grade 4 diabetic foot ulceration. He is stable from an arterial perspective for any further amputation if required. Continue local wound care per General surgery team. We will follow on an as-needed basis. Thank you for allowing us to assist in his care. If there are any questions or concerns please do not hesitate to contact us. Fall Risk Details Current Medications: Current Medications Acetaminophen (Acetaminophen 325 Mg Tablet) 650 mg PO Q6H PRN PRN Reason: Pain, Mild (Pain Scale 1-3) Amlodipine Besylate (Amlodipine Besylate 10 Mg Tablet) 10 mg PO DAILY [facility]; Protocol Last Admin: 05/02/21 08:32 Dose: 10 mg Documented by: Dextrose (Dextrose 50 % 25 Gm/50 Ml Syringe) 25 gm IVPUSH Q15M PRN; Protocol PRN Reason: per Hypoglycemia Standing Ord. Fentanyl (Fentanyl Citrate/Pf 100 Mcg/2 Ml Vial) 50 mcg IVPUSH Q5M PRN; Protocol PRN Reason: Pain, Severe (Pain Scale 7-10) Glucose (Glucose Gel 15 Gm Gel..Gram.) 15 gm PO Q15M PRN; Protocol PRN Reason: per Hypoglycemia Standing Ord. Heparin Sodium (Porcine) (Heparin Sodium,Porcine 5,000 Unit/Ml Vial) 5,000 unit SUBCUT Q12H [facility] Last Admin: 05/02/21 08:32 Dose: 5,000 unit Documented by: Piperacillin Sod/Tazobactam (Sod 3.375 gm/ Sodium Chloride) 50 mls @ 100 mls/hr IV Q6H [facility] Last Infusion: 05/02/21 09:05 Dose: Infused Documented by: Promethazine HCl 12.5 mg/ (Sodium Chloride) 50.5 mls @ 202 mls/hr IV ONCE PRN PRN Reason: Nausea and Vomiting Sodium Chloride (Ns) 1,000 mls @ 100 mls/hr IVCONT .Q10H [facility] Last Admin: 05/02/21 05:43 Dose: Not Given Documented by: Lactated Ringer's (Lr) 1,000 mls @ 60 mls/hr IVCONT .[id number] [facility] Last Admin: 05/01/21 21:32 Dose: 60 mls/hr Documented by: Vancomycin HCl 1,500 mg/ (Sodium Chloride) 500 mls @ 333.333 mls/hr IV Q24H [facility] Last Admin: 05/02/21 10:08 Dose: 333.33 mls/hr Documented by: Insulin Glargine (Insulin Glargine,Hum.Rec.Anlog 100 Unit/Ml 10 Ml Vial) 20 unit SUBCUT BEDTIME [facility] Last Admin: 05/01/21 21:32 Dose: 20 unit Documented by: Insulin Human Lispro (Insulin Lispro 100 Unit/Ml 3 Ml Vial) 0 unit SUBCUT QIDACHS [facility]; Protocol Last Admin: 05/02/21 08:32 Dose: 2 unit Documented by: Metoprolol Succinate (Metoprolol Succinate Er 100 Mg Tab.Er.24h) 100 mg PO DAILY [facility]; Protocol Last Admin: 05/02/21 08:32 Dose: 100 mg Documented by: Morphine Sulfate (Morphine Sulfate 2 Mg/Ml Cartridge) 2 mg IVPUSH Q4H PRN; Protocol PRN Reason: Pain, Severe (Pain Scale 7-10) Morphine Sulfate (Morphine Sulfate 4 Mg/Ml Cartridge) 4 mg IVPUSH Q2H PRN; Protocol PRN Reason: Pain, Severe (Pain Scale 7-10) Omeprazole (Omeprazole 20 Mg Capsule.Dr) 20 mg PO DAILY@0630 [facility] Last Admin: 05/02/21 05:44 Dose: 20 mg Documented by: Ondansetron HCl (Ondansetron Hcl 4 Mg/2 Ml Vial) 4 mg IVPUSH ONCE PRN PRN Reason: Nausea and Vomiting Oxycodone HCl (Oxycodone Hcl Immed Release 5 Mg Tablet) 5 mg PO ONCE PRN PRN Reason: Pain, Severe (Pain Scale 7-10) Oxycodone HCl (Oxycodone Hcl Immed Release 5 Mg Tablet) 10 mg PO Q4H PRN PRN Reason: Pain, Moderate (Pain Scale 4-6 Pharmacy Consult (Consult Rx Perform Med Rec) 1 each MISCELLANE ONCE PRN PRN Reason: Consult order Pharmacy Consult (Consult Rx Vancomycin Dosing) 1 each MISCELLANE DAILY PRN PRN Reason: Consult order Sodium Chloride (0.9 % Sodium Chloride Flush 3 Ml Syringe) 3 ml IVFLUSH QSHIFT [facility] Last Admin: 05/02/21 08:32 Dose: 3 ml Documented by: Time Spent With Patient Time: Total time spent is greater than 50% in coordination of care (as documented) at patient's floor/unit and/or counseling patient: Time with patient: 15 - 24 minutes Procedures Date of Service Date of Service: 05/02/21 Quality Stroke Does the patient have a stroke diagnosis?: No VTE Prior VTE?: No VTE Risk Level:: Medical - moderate - high VTE Device Contraindication: N/A - Device Ordered VTE Drug Contraindication: Treatment Not Indicated
[2021-05-02 11:11] LABS: Glucose, Whole Blood 249 mg/dL (60-115)
[2021-05-02] MEDS: Lactated Ringers 1,000 ML 60 ML IVCONT (13:36)
--- NOTE | 2021-05-02 14:14 | MHC.CM.PN ---
PLAN IS FOR DC HOME BY SATURDAY PATIENT WILL NEED WOUND CARE 3X/WEEK. [facility] UPDATED AND ASKED IF THEY CAN OFFER NO IV ABX ANTICIPATED
--- NOTE | 2021-05-02 14:27 | HO.PM.IMPN ---
Subjective Subjective Date of Service: 05/02/21 Interval History: dm foot ulcer Review of Systems pain seems controlled Denies any chest pain or shortness of breath or abdominal pain or fever or chills. Physical Exam Vital Signs: Vital Signs: Last Vital Signs Temp 98.2 F 05/02/21 11:23 Pulse 84 05/02/21 11:23 Resp 16 05/02/21 11:23 BP 143/74 H 05/02/21 11:23 Pulse Ox 94 05/02/21 11:23 BMI result Body Mass Index 33.6 General: AO X 3, no acute distress Resp:? CTA bilateral CVS: S1,S2,RRR GI: +BS, NT, no distention Skin: See pictures elsewhere Neuro:? motor grossly intact Psych: appropriate affect Objective Data Active Medications Acetaminophen (Acetaminophen 325 Mg Tablet) 650 mg PO Q6H PRN PRN Reason: Pain, Mild (Pain Scale 1-3) Amlodipine Besylate (Amlodipine Besylate 10 Mg Tablet) 10 mg PO DAILY [facility]; Protocol Last Admin: 05/02/21 08:32 Dose: 10 mg Documented by: EVERETTEMA Dextrose (Dextrose 50 % 25 Gm/50 Ml Syringe) 25 gm IVPUSH Q15M PRN; Protocol PRN Reason: per Hypoglycemia Standing Ord. Glucose (Glucose Gel 15 Gm Gel..Gram.) 15 gm PO Q15M PRN; Protocol PRN Reason: per Hypoglycemia Standing Ord. Heparin Sodium (Porcine) (Heparin Sodium,Porcine 5,000 Unit/Ml Vial) 5,000 unit SUBCUT Q12H [facility] Last Admin: 05/02/21 08:32 Dose: 5,000 unit Documented by: COTEMA Piperacillin Sod/Tazobactam (Sod 3.375 gm/ Sodium Chloride) 50 mls @ 100 mls/hr IV Q6H [facility] Last Infusion: 05/02/21 14:14 Dose: 0 mls/hr Documented by: COTEMA Promethazine HCl 12.5 mg/ (Sodium Chloride) 50.5 mls @ 202 mls/hr IV ONCE PRN PRN Reason: Nausea and Vomiting Sodium Chloride (Ns) 1,000 mls @ 100 mls/hr IVCONT .Q10H [facility] Last Admin: 05/02/21 13:33 Dose: Not Given Documented by: EVERETTEMA Non-Admin Reason: preop fluids Lactated Ringer's (Lr) 1,000 mls @ 60 mls/hr IVCONT .[id number] [facility] Last Admin: 05/02/21 13:36 Dose: 60 mls/hr Documented by: COTEMA Vancomycin HCl 1,500 mg/ (Sodium Chloride) 500 mls @ 333.333 mls/hr IV Q24H [facility] Last Infusion: 05/02/21 11:43 Dose: 0 mls/hr Documented by: EVERETTEMA Insulin Glargine (Insulin Glargine,Hum.Rec.Anlog 100 Unit/Ml 10 Ml Vial) 20 unit SUBCUT BEDTIME [facility] Last Admin: 05/01/21 21:32 Dose: 20 unit Documented by: JAMAALILSwathi Insulin Human Lispro (Insulin Lispro 100 Unit/Ml 3 Ml Vial) 0 unit SUBCUT QIDACHS [facility]; Protocol Last Admin: 05/02/21 11:42 Dose: 4 unit Documented by: MENA Metoprolol Succinate (Metoprolol Succinate Er 100 Mg Tab.Er.24h) 100 mg PO DAILY [facility]; Protocol Last Admin: 05/02/21 08:32 Dose: 100 mg Documented by: MENA Morphine Sulfate (Morphine Sulfate 4 Mg/Ml Cartridge) 4 mg IVPUSH Q2H PRN; Protocol PRN Reason: Pain, Severe (Pain Scale 7-10) Omeprazole (Omeprazole 20 Mg Capsule.Dr) 20 mg PO DAILY@0630 [facility] Last Admin: 05/02/21 05:44 Dose: 20 mg Documented by: AVILA Ondansetron HCl (Ondansetron Hcl 4 Mg/2 Ml Vial) 4 mg IVPUSH ONCE PRN PRN Reason: Nausea and Vomiting Pharmacy Consult (Consult Rx Perform Med Rec) 1 each MISCELLANE ONCE PRN PRN Reason: Consult order Pharmacy Consult (Consult Rx Vancomycin Dosing) 1 each MISCELLANE DAILY PRN PRN Reason: Consult order Sodium Chloride (0.9 % Sodium Chloride Flush 3 Ml Syringe) 3 ml IVFLUSH QSHIFT [facility] Last Admin: 05/02/21 13:34 Dose: Not Given Documented by: MENA Non-Admin Reason: IV Running Labs CBC & Chem 7: 04/26/21 15:50 05/02/21 06:28 Labs: Laboratory Results - last 24 hr 0205/01/21 05/02/21 17:33 21:27 06:28 Estim Creat Clear Calc Estimated GFR POC Glucose 119 H 214 H Random Vancomycin 17.6 05/02/21 05/02/21 05/02/21 06:28 07:26 10:59 Estim Creat Clear Calc 82.9 Estimated GFR 52 POC Glucose 176 H 249 H Random Vancomycin Microbiology Microbiology Results: Microbiology 04/26/21 19:42 Blood Culture - Final Blood - Venous No growth after 5 days. 04/26/21 18:39 Blood Culture - Final Blood - Venous No growth after 5 days. Assessment and Plan (1) PAD (peripheral artery disease): Status: Acute Plan 56-year-old male with a past medical history of hypertension, hyperlipidemia, diabetes, recent admission to the hospital for possible HHS/diabetic foot infection was antibiotics; presented to the hospital today with a chief complaint of right foot diabetic foot infection/discharge.? 1.Diabetic foot infection / necrosis/Sepsis s/p debridment vanco -continue? Zosyn/Vanco day 6, cutlure no growth, ID following possible Ertapenem for 6 wks at dc -Angiogram by [facility] yesterday-diabetic foot ulceration.? He is stable from an arterial perspective for any further amputation if required.? Continue local wound care per General surgery team. 2.Diabetes-better control: -continue Lantus, SSI, ADA and adjust med as needed 3.HTN--Controlled, continue Norvasc. 4.Chronic AFIB--controlled, Xarelto may need started once ok with primary team DVT prophylaxis-xarelto Quality Stroke Does the patient have a stroke diagnosis?: No VTE Prior VTE?: No VTE Risk Level:: Medical - moderate - high VTE Device Contraindication: N/A - Device Ordered VTE Drug Contraindication: Treatment Not Indicated
[2021-05-02 16:21] LABS: Glucose, Whole Blood 202 mg/dL (60-115)
[2021-05-02] MEDS: Rivaroxaban 20 MG TABLET PO (16:51)
[2021-05-02 19:47] LABS: Glucose, Whole Blood 225 mg/dL (60-115)
[2021-05-02] MEDS: Insulin Glargine,Hum.rec.anlog 100 UNIT/ML 10 ML VIAL 20 UNIT SUBCUT (20:11)
[2021-05-03] VITALS (7 sets, daily range): BP systolic 126–153; BP diastolic 60–77; PULSE 88–92; RESP 17–20; TEMP 36.4–37.2; O2SAT 93–96
[2021-05-03] MEDS: Piperacillin Sodium/Tazobactam 3.375 GM in 0.9 % Sodium Chloride 50 ML IV ×2 (02:10→07:48)
[2021-05-03] MEDS: Omeprazole 20 MG CAPSULE.DR PO (05:50)
[2021-05-03 06:27] LABS: Creatinine Clr Calc Pharmacy 76.3; Estimated Glomerular Filt Rate 48
[2021-05-03] MEDS: amLODIPine Besylate 10 MG TABLET PO (07:48)
[2021-05-03] MEDS: Metoprolol Succinate ER 100 MG TAB.ER.24H PO (07:48)
[2021-05-03] MEDS: 0.9 % Sodium Chloride Flush 3 ML SYRINGE IVFLUSH ×3 (07:51→21:57)
[2021-05-03 08:01] LABS: Glucose, Whole Blood 162 mg/dL (60-115)
[2021-05-03] MEDS: Insulin Lispro 100 UNIT/ML 3 ML VIAL SUBCUT ×4 (08:40→21:56)
--- NOTE | 2021-05-03 08:45 | PHA.MEDREC ---
Pharmacy Consult ? Medication Reconciliation Pharmacy has completed the medication reconciliation.
--- NOTE | 2021-05-03 08:45 | HE.PHANOTE ---
VANCOMYCIN DOSING ADDENDUM BASED ON LABS TODAY CONTINUE [id number]. NEXT TROUGH 05/04 @ 0600
[2021-05-03] MEDS: Lactated Ringers 1,000 ML 80 ML IVCONT ×2 (09:12→21:51)
[2021-05-03] MEDS: vancomycin HCL 1,500 MG in 0.9 % Sodium Chloride 500 ML 333.33 MG IV (09:12)
--- NOTE | 2021-05-03 09:53 | P.PNGS_ITS ---
Subjective Subjective Date of Service: 05/03/21 Interval history: Feels well Denies complaints Denies pain Stable overnight Physical Exam 2 Vital Signs: Vital Signs: Last Vital Signs Temp 98.0 F 05/03/21 07:25 Pulse 92 05/03/21 07:25 Resp 20 05/03/21 07:25 BP 153/77 H 05/03/21 07:25 Pulse Ox 94 05/03/21 07:25 BMI result Body Mass Index 33.6 Const: General: comfortable and no acute distress Resp: Effort & Inspection: normal respiratory effort Cardio: Rate: regular rate Extrem: Other: Right foot open wounds with generally good granulation, patchy areas with fibrinous exudates, specially around the 5th toe. Fifth toe is mummified with dry gangrene. Tip of 3rd toe has some dry gangrene as well otherwise both open wound on the dorsum as well as on the plantar aspects appear much improved Objective Data Active Medications Acetaminophen (Acetaminophen 325 Mg Tablet) 650 mg PO Q6H PRN PRN Reason: Pain, Mild (Pain Scale 1-3) Amlodipine Besylate (Amlodipine Besylate 10 Mg Tablet) 10 mg PO DAILY [facility]; Protocol Last Admin: 05/03/21 07:48 Dose: 10 mg Documented by: ZANA Dextrose (Dextrose 50 % 25 Gm/50 Ml Syringe) 25 gm IVPUSH Q15M PRN; Protocol PRN Reason: per Hypoglycemia Standing Ord. Glucose (Glucose Gel 15 Gm Gel..Gram.) 15 gm PO Q15M PRN; Protocol PRN Reason: per Hypoglycemia Standing Ord. Piperacillin Sod/Tazobactam (Sod 3.375 gm/ Sodium Chloride) 50 mls @ 100 mls/hr IV Q6H [facility] Last Infusion: 05/03/21 08:18 Dose: 0 mls/hr Documented by: ZANA Promethazine HCl 12.5 mg/ (Sodium Chloride) 50.5 mls @ 202 mls/hr IV ONCE PRN PRN Reason: Nausea and Vomiting Vancomycin HCl 1,500 mg/ (Sodium Chloride) 500 mls @ 333.333 mls/hr IV Q24H [facility] Last Admin: 05/03/21 09:12 Dose: 333.33 mls/hr Documented by: ZANA Lactated Ringer's (Lr) 1,000 mls @ 80 mls/hr IVCONT .[id number] [facility] Last Admin: 05/03/21 09:12 Dose: 80 mls/hr Documented by: ZANA Insulin Glargine (Insulin Glargine,Hum.Rec.Anlog 100 Unit/Ml 10 Ml Vial) 20 unit SUBCUT BEDTIME [facility] Last Admin: 05/02/21 20:11 Dose: 20 unit Documented by: IZZY Insulin Human Lispro (Insulin Lispro 100 Unit/Ml 3 Ml Vial) 0 unit SUBCUT QIDACHS [facility]; Protocol Last Admin: 05/03/21 08:40 Dose: 2 unit Documented by: ZANA Metoprolol Succinate (Metoprolol Succinate Er 100 Mg Tab.Er.24h) 100 mg PO DAILY [facility]; Protocol Last Admin: 05/03/21 07:48 Dose: 100 mg Documented by: ZANA Morphine Sulfate (Morphine Sulfate 4 Mg/Ml Cartridge) 4 mg IVPUSH Q2H PRN; Protocol PRN Reason: Pain, Severe (Pain Scale 7-10) Omeprazole (Omeprazole 20 Mg Capsule.Dr) 20 mg PO DAILY@0630 [facility] Last Admin: 05/03/21 05:50 Dose: 20 mg Documented by: IZZY Ondansetron HCl (Ondansetron Hcl 4 Mg/2 Ml Vial) 4 mg IVPUSH ONCE PRN PRN Reason: Nausea and Vomiting Pharmacy Consult (Consult Rx Perform Med Rec) 1 each MISCELLANE ONCE PRN PRN Reason: Consult order Pharmacy Consult (Consult Rx Vancomycin Dosing) 1 each MISCELLANE DAILY PRN PRN Reason: Consult order Rivaroxaban (Rivaroxaban 20 Mg Tablet) 20 mg PO DAILY@1700 [facility] Last Admin: 05/02/21 16:51 Dose: 20 mg Documented by: MENA Sodium Chloride (0.9 % Sodium Chloride Flush 3 Ml Syringe) 3 ml IVFLUSH QSHIFT [facility] Last Admin: 05/03/21 07:51 Dose: 3 ml Documented by: ZANA Labs CBC & Chem 7: 04/26/21 15:50 05/03/21 05:50 Labs: Laboratory Results - last 24 hr 05/02/21 05/02/21 05/02/21 10:59 15:18 19:03 Estim Creat Clear Calc Estimated GFR POC Glucose 249 H 202 H 225 H 05/03/21 05/03/21 05:50 07:24 Estim Creat Clear Calc 76.3 Estimated GFR 48 POC Glucose 162 H Procedures Date of Service Date of Service: 05/03/21 Progress Note: A&P Assessment and plan (1) Diabetic foot infection: Status: Acute Assessment and Plan: Status post debridement I have taken down his dressings today and changed Applied wet to dry with normal saline today Continue wound care Awaiting for wound nurse services to dressing changes can be done at home Blood sugar control Fall Risk Details Current Medications: Current Medications Acetaminophen (Acetaminophen 325 Mg Tablet) 650 mg PO Q6H PRN PRN Reason: Pain, Mild (Pain Scale 1-3) Amlodipine Besylate (Amlodipine Besylate 10 Mg Tablet) 10 mg PO DAILY [facility]; Protocol Last Admin: 05/03/21 07:48 Dose: 10 mg Documented by: Dextrose (Dextrose 50 % 25 Gm/50 Ml Syringe) 25 gm IVPUSH Q15M PRN; Protocol PRN Reason: per Hypoglycemia Standing Ord. Glucose (Glucose Gel 15 Gm Gel..Gram.) 15 gm PO Q15M PRN; Protocol PRN Reason: per Hypoglycemia Standing Ord. Piperacillin Sod/Tazobactam (Sod 3.375 gm/ Sodium Chloride) 50 mls @ 100 mls/hr IV Q6H [facility] Last Infusion: 05/03/21 08:18 Dose: Infused Documented by: Promethazine HCl 12.5 mg/ (Sodium Chloride) 50.5 mls @ 202 mls/hr IV ONCE PRN PRN Reason: Nausea and Vomiting Vancomycin HCl 1,500 mg/ (Sodium Chloride) 500 mls @ 333.333 mls/hr IV Q24H [facility] Last Admin: 05/03/21 09:12 Dose: 333.33 mls/hr Documented by: Lactated Ringer's (Lr) 1,000 mls @ 80 mls/hr IVCONT .[id number] [facility] Last Admin: 05/03/21 09:12 Dose: 80 mls/hr Documented by: Insulin Glargine (Insulin Glargine,Hum.Rec.Anlog 100 Unit/Ml 10 Ml Vial) 20 unit SUBCUT BEDTIME [facility] Last Admin: 05/02/21 20:11 Dose: 20 unit Documented by: Insulin Human Lispro (Insulin Lispro 100 Unit/Ml 3 Ml Vial) 0 unit SUBCUT QIDACHS [facility]; Protocol Last Admin: 05/03/21 08:40 Dose: 2 unit Documented by: Metoprolol Succinate (Metoprolol Succinate Er 100 Mg Tab.Er.24h) 100 mg PO DAILY [facility]; Protocol Last Admin: 05/03/21 07:48 Dose: 100 mg Documented by: Morphine Sulfate (Morphine Sulfate 4 Mg/Ml Cartridge) 4 mg IVPUSH Q2H PRN; Protocol PRN Reason: Pain, Severe (Pain Scale 7-10) Omeprazole (Omeprazole 20 Mg Capsule.Dr) 20 mg PO DAILY@0630 [facility] Last Admin: 05/03/21 05:50 Dose: 20 mg Documented by: Ondansetron HCl (Ondansetron Hcl 4 Mg/2 Ml Vial) 4 mg IVPUSH ONCE PRN PRN Reason: Nausea and Vomiting Pharmacy Consult (Consult Rx Perform Med Rec) 1 each MISCELLANE ONCE PRN PRN Reason: Consult order Pharmacy Consult (Consult Rx Vancomycin Dosing) 1 each MISCELLANE DAILY PRN PRN Reason: Consult order Rivaroxaban (Rivaroxaban 20 Mg Tablet) 20 mg PO DAILY@1700 [facility] Last Admin: 05/02/21 16:51 Dose: 20 mg Documented by: Sodium Chloride (0.9 % Sodium Chloride Flush 3 Ml Syringe) 3 ml IVFLUSH QSHIFT [facility] Last Admin: 05/03/21 07:51 Dose: 3 ml Documented by: Time Spent With Patient Time: Total time spent is greater than 50% in coordination of care (as documented) at patient's floor/unit and/or counseling patient: Time with patient: 15 - 24 minutes Quality Stroke Does the patient have a stroke diagnosis?: No VTE Prior VTE?: No VTE Risk Level:: Medical - moderate - high VTE Device Contraindication: N/A - Device Ordered VTE Drug Contraindication: Treatment Not Indicated
[2021-05-03 11:53] LABS: Glucose, Whole Blood 193 mg/dL (60-115)
--- NOTE | 2021-05-03 13:53 | P.PNIM_ITS ---
Subjective Subjective Date of Service: 05/03/21 Interval History: dm foot ulcer Review of Systems pain seems controlled ? Denies any chest pain or shortness of breath or abdominal pain or fever or chills. Physical Exam Vital Signs: Vital Signs: Last Vital Signs Temp 98.3 F 05/03/21 11:21 Pulse 89 05/03/21 11:21 Resp 18 05/03/21 11:21 BP 146/76 H 05/03/21 11:21 Pulse Ox 95 05/03/21 11:21 BMI result Body Mass Index 33.6 General: AO X 3, no acute distress Resp:? CTA bilateral CVS: S1,S2,RRR GI: +BS, NT, no distention Skin: See pictures elsewhere Neuro:? motor grossly intact Psych: appropriate affect Objective Data Active Medications Acetaminophen (Acetaminophen 325 Mg Tablet) 650 mg PO Q6H PRN PRN Reason: Pain, Mild (Pain Scale 1-3) Amlodipine Besylate (Amlodipine Besylate 10 Mg Tablet) 10 mg PO DAILY [facility]; Protocol Last Admin: 05/03/21 07:48 Dose: 10 mg Documented by: ZANA Dextrose (Dextrose 50 % 25 Gm/50 Ml Syringe) 25 gm IVPUSH Q15M PRN; Protocol PRN Reason: per Hypoglycemia Standing Ord. Glucose (Glucose Gel 15 Gm Gel..Gram.) 15 gm PO Q15M PRN; Protocol PRN Reason: per Hypoglycemia Standing Ord. Promethazine HCl 12.5 mg/ (Sodium Chloride) 50.5 mls @ 202 mls/hr IV ONCE PRN PRN Reason: Nausea and Vomiting Lactated Ringer's (Lr) 1,000 mls @ 80 mls/hr IVCONT .[id number] [facility] Last Admin: 05/03/21 09:12 Dose: 80 mls/hr Documented by: ZANA Meropenem 1 gm/ Sodium (Chloride) 100 mls @ 200 mls/hr IV Q8H [facility] Insulin Glargine (Insulin Glargine,Hum.Rec.Anlog 100 Unit/Ml 10 Ml Vial) 20 unit SUBCUT BEDTIME [facility] Last Admin: 05/02/21 20:11 Dose: 20 unit Documented by: IZZY Insulin Human Lispro (Insulin Lispro 100 Unit/Ml 3 Ml Vial) 0 unit SUBCUT QIDACHS [facility]; Protocol Last Admin: 05/03/21 12:27 Dose: 2 unit Documented by: ZANA Metoprolol Succinate (Metoprolol Succinate Er 100 Mg Tab.Er.24h) 100 mg PO DAILY [facility]; Protocol Last Admin: 05/03/21 07:48 Dose: 100 mg Documented by: ZANA Morphine Sulfate (Morphine Sulfate 4 Mg/Ml Cartridge) 4 mg IVPUSH Q2H PRN; Protocol PRN Reason: Pain, Severe (Pain Scale 7-10) Omeprazole (Omeprazole 20 Mg Capsule.Dr) 20 mg PO DAILY@0630 [facility] Last Admin: 05/03/21 05:50 Dose: 20 mg Documented by: IZZY Ondansetron HCl (Ondansetron Hcl 4 Mg/2 Ml Vial) 4 mg IVPUSH ONCE PRN PRN Reason: Nausea and Vomiting Pharmacy Consult (Consult Rx Perform Med Rec) 1 each MISCELLANE ONCE PRN PRN Reason: Consult order Pharmacy Consult (Consult Rx Vancomycin Dosing) 1 each MISCELLANE DAILY PRN PRN Reason: Consult order Rivaroxaban (Rivaroxaban 20 Mg Tablet) 20 mg PO DAILY@1700 [facility] Last Admin: 05/02/21 16:51 Dose: 20 mg Documented by: [place] Sodium Chloride (0.9 % Sodium Chloride Flush 3 Ml Syringe) 3 ml IVFLUSH QSHIFT [facility] Last Admin: 05/03/21 07:51 Dose: 3 ml Documented by: ZANA Labs CBC & Chem 7: 04/26/21 15:50 05/03/21 05:50 Labs: Laboratory Results - last 24 hr 05/02/21 05/02/21 05/03/21 15:18 19:03 05:50 Estim Creat Clear Calc 76.3 Estimated GFR 48 POC Glucose 202 H 225 H 05/03/21 05/03/21 07:24 11:24 Estim Creat Clear Calc Estimated GFR POC Glucose 162 H 193 H Assessment and Plan (1) Osteomyelitis: Status: Acute Plan 56-year-old male with a past medical history of hypertension, hyperlipidemia, diabetes, recent admission to the hospital for possible HHS/diabetic foot infection was antibiotics; presented to the hospital today with a chief complaint of right foot diabetic foot infection/discharge.? 1.Diabetic foot infection / necrosis/Sepsis s/p debridment vanco -continue? Zosyn/Vanco day 6, cutlure no growth, ID following recoemended Ertapenem for 6 wks -started doripenem , stop vanco and zosyn. -Angiogram by [facility] yesterday-diabetic foot ulceration.? He is stable from an arterial perspective for any further amputation if required.? Continue local w ound care per General surgery team. 2.Diabetes-better control: -continue Lantus, SSI, ADA and adjust med as needed 3.HTN--Controlled, continue Norvasc. 4.Chronic AFIB--controlled, Xarelto may need started once ok with primary team DVT prophylaxis-xarelto Quality Stroke Does the patient have a stroke diagnosis?: No VTE Prior VTE?: No VTE Risk Level:: Medical - moderate - high VTE Device Contraindication: N/A - Device Ordered VTE Drug Contraindication: Treatment Not Indicated
--- NOTE | 2021-05-03 15:35 | MHC.CM.PN ---
SURGEON AND SURGICAL PA NOTIFIED THAT PATIENT PLAN IS 6 WEEKS OF IV ABX AND WILL NEED AN ORDER FOR PICC. CONFIRMATION RECEIVED VIA [employer] TEXT HOSPITALIST MADE AWARE
[2021-05-03 16:22] LABS: Glucose, Whole Blood 247 mg/dL (60-115)
[2021-05-03] MEDS: Rivaroxaban 20 MG TABLET PO (16:44)
[2021-05-03 20:24] LABS: Glucose, Whole Blood 206 mg/dL (60-115)
[2021-05-03] MEDS: Insulin Glargine,Hum.rec.anlog 100 UNIT/ML 10 ML VIAL 20 UNIT SUBCUT (21:56)
[2021-05-04] VITALS: BP 140/78; PULSE 87; RESP 18; TEMP 36.8; O2SAT 98
[2021-05-04] MEDS: Omeprazole 20 MG CAPSULE.DR PO (06:14)
--- NOTE | 2021-05-04 06:20 | PC.NURSE ---
rt foot dsg noted soaked with drainage from debrided wound, pt offered dsg change and pt refused reporting md comes in every morning to change dsg. pt denies pain at this time. will cont to monitor
[2021-05-04 07:49] LABS: Glucose, Whole Blood 174 mg/dL (60-115)
[2021-05-04 07:55] LABS: Creatinine Clr Calc Pharmacy 86.6; Estimated Glomerular Filt Rate 55
[2021-05-04 07:56] VITALS: BP 146/80; PULSE 88; RESP 20; TEMP 36.9; O2SAT 95
[2021-05-04] MEDS: Insulin Lispro 100 UNIT/ML 3 ML VIAL SUBCUT ×3 (08:25→20:53)
[2021-05-04] MEDS: 0.9 % Sodium Chloride Flush 3 ML SYRINGE IVFLUSH ×2 (08:25→17:05)
[2021-05-04] MEDS: Metoprolol Succinate ER 100 MG TAB.ER.24H PO (08:26)
[2021-05-04] MEDS: amLODIPine Besylate 10 MG TABLET PO (08:26)
[2021-05-04 08:31] LABS: Vancomycin Trough 17.6 mcg/mL (10.0-20.0)
--- NOTE | 2021-05-04 08:52 | PM.PNGS ---
Subjective Subjective Date of Service: 05/04/21 Interval history: Denies complaints dressings seemed soaked with nonbloody edema fluid Denies pain Physical Exam Vital Signs: Vital Signs: Last Vital Signs Temp 98.4 F 05/04/21 07:56 Pulse 88 05/04/21 07:56 Resp 20 05/04/21 07:56 BP 146/80 H 05/04/21 07:56 Pulse Ox 95 05/04/21 07:56 BMI result Body Mass Index 33.6 Const: General: comfortable and no acute distress Resp: Effort & Inspection: normal respiratory effort Cardio: Rhythm: abnormal rhythm GI: Palpation (GI): Soft to palpation Extrem: Other: Right foot with open wound - generally clean and granulating well; some areas surrounding the base of the toe with thick fibrinous debris Objective Data Active Medications Acetaminophen (Acetaminophen 325 Mg Tablet) 650 mg PO Q6H PRN PRN Reason: Pain, Mild (Pain Scale 1-3) Amlodipine Besylate (Amlodipine Besylate 10 Mg Tablet) 10 mg PO DAILY [facility]; Protocol Last Admin: 05/04/21 08:26 Dose: 10 mg Documented by: AMAYA Dextrose (Dextrose 50 % 25 Gm/50 Ml Syringe) 25 gm IVPUSH Q15M PRN; Protocol PRN Reason: per Hypoglycemia Standing Ord. Glucose (Glucose Gel 15 Gm Gel..Gram.) 15 gm PO Q15M PRN; Protocol PRN Reason: per Hypoglycemia Standing Ord. Promethazine HCl 12.5 mg/ (Sodium Chloride) 50.5 mls @ 202 mls/hr IV ONCE PRN PRN Reason: Nausea and Vomiting Meropenem 1 gm/ Sodium (Chloride) 100 mls @ 200 mls/hr IV Q8H [facility] Last Infusion: 05/04/21 06:52 Dose: 0 mls/hr Documented by: SANDHYA Insulin Glargine (Insulin Glargine,Hum.Rec.Anlog 100 Unit/Ml 10 Ml Vial) 20 unit SUBCUT BEDTIME [facility] Last Admin: 05/03/21 21:56 Dose: 20 unit Documented by: SANDHYA Insulin Human Lispro (Insulin Lispro 100 Unit/Ml 3 Ml Vial) 0 unit SUBCUT QIDACHS [facility]; Protocol Last Admin: 05/04/21 08:25 Dose: 2 unit Documented by: AMAYA Metoprolol Succinate (Metoprolol Succinate Er 100 Mg Tab.Er.24h) 100 mg PO DAILY [facility]; Protocol Last Admin: 05/04/21 08:26 Dose: 100 mg Documented by: AMAYA Morphine Sulfate (Morphine Sulfate 4 Mg/Ml Cartridge) 4 mg IVPUSH Q2H PRN; Protocol PRN Reason: Pain, Severe (Pain Scale 7-10) Omeprazole (Omeprazole 20 Mg Capsule.Dr) 20 mg PO DAILY@0630 [facility] Last Admin: 05/04/21 06:14 Dose: 20 mg Documented by: SANDHYA Ondansetron HCl (Ondansetron Hcl 4 Mg/2 Ml Vial) 4 mg IVPUSH ONCE PRN PRN Reason: Nausea and Vomiting Pharmacy Consult (Consult Rx Perform Med Rec) 1 each MISCELLANE ONCE PRN PRN Reason: Consult order Rivaroxaban (Rivaroxaban 20 Mg Tablet) 20 mg PO DAILY@1700 [facility] Last Admin: 05/03/21 16:44 Dose: 20 mg Documented by: ZANA Sodium Chloride (0.9 % Sodium Chloride Flush 3 Ml Syringe) [facility] Last Admin: 05/04/21 08:25 Dose: 3 ml Documented by: AMAYA Labs CBC & Chem 7: 04/26/21 15:50 05/04/21 05:56 Labs: Laboratory Results - last 24 hr 05/03/21 05/03/21 05/03/21 11:24 15:12 19:48 Estim Creat Clear Calc Estimated GFR POC Glucose 193 H 247 H 206 H Vancomycin Trough 05/04/21 05/04/21 05/04/21 05:56 05:56 07:26 Estim Creat Clear Calc 86.6 Estimated GFR 55 POC Glucose 174 H Vancomycin Trough 17.6 Procedures Date of Service Date of Service: 05/04/21 Progress Note: A&P Assessment and plan (1) Osteomyelitis: Status: Acute Assessment and Plan: Status post extensive debridement right foot Have changed dressings Wounds much improved Dry gangrene of the 5th toe Silver alginate dressings applied PICC line today for IV antibiotics as per ID recommendation Appreciate hospitalist follow-up Fall Risk Details Current Medications: Current Medications Acetaminophen (Acetaminophen 325 Mg Tablet) 650 mg PO Q6H PRN PRN Reason: Pain, Mild (Pain Scale 1-3) Amlodipine Besylate (Amlodipine Besylate 10 Mg Tablet) 10 mg PO DAILY [facility]; Protocol Last Admin: 05/04/21 08:26 Dose: 10 mg Documented by: Dextrose (Dextrose 50 % 25 Gm/50 Ml Syringe) 25 gm IVPUSH Q15M PRN; Protocol PRN Reason: per Hypoglycemia Standing Ord. Glucose (Glucose Gel 15 Gm Gel..Gram.) 15 gm PO Q15M PRN; Protocol PRN Reason: per Hypoglycemia Standing Ord. Promethazine HCl 12.5 mg/ (Sodium Chloride) 50.5 mls @ 202 mls/hr IV ONCE PRN PRN Reason: Nausea and Vomiting Meropenem 1 gm/ Sodium (Chloride) 100 mls @ 200 mls/hr IV Q8H [facility] Last Infusion: 05/04/21 06:52 Dose: Infused Documented by: Insulin Glargine (Insulin Glargine,Hum.Rec.Anlog 100 Unit/Ml 10 Ml Vial) 20 unit SUBCUT BEDTIME [facility] Last Admin: 05/03/21 21:56 Dose: 20 unit Documented by: Insulin Human Lispro (Insulin Lispro 100 Unit/Ml 3 Ml Vial) 0 unit SUBCUT QIDACHS [facility]; Protocol Last Admin: 05/04/21 08:25 Dose: 2 unit Documented by: Metoprolol Succinate (Metoprolol Succinate Er 100 Mg Tab.Er.24h) 100 mg PO DAILY [facility]; Protocol Last Admin: 05/04/21 08:26 Dose: 100 mg Documented by: Morphine Sulfate (Morphine Sulfate 4 Mg/Ml Cartridge) 4 mg IVPUSH Q2H PRN; Protocol PRN Reason: Pain, Severe (Pain Scale 7-10) Omeprazole (Omeprazole 20 Mg Capsule.Dr) 20 mg PO DAILY@0630 [facility] Last Admin: 05/04/21 06:14 Dose: 20 mg Documented by: Ondansetron HCl (Ondansetron Hcl 4 Mg/2 Ml Vial) 4 mg IVPUSH ONCE PRN PRN Reason: Nausea and Vomiting Pharmacy Consult (Consult Rx Perform Med Rec) 1 each MISCELLANE ONCE PRN PRN Reason: Consult order Rivaroxaban (Rivaroxaban 20 Mg Tablet) 20 mg PO DAILY@1700 [facility] Last Admin: 05/03/21 16:44 Dose: 20 mg Documented by: Sodium Chloride (0.9 % Sodium Chloride Flush 3 Ml Syringe) 3 ml IVFLUSH QSHIFT [facility] Last Admin: 05/04/21 08:25 Dose: 3 ml Documented by: Time Spent With Patient Time: Total time spent is greater than 50% in coordination of care (as documented) at patient's floor/unit and/or counseling patient: Time with patient: 15 - 24 minutes Quality Stroke Does the patient have a stroke diagnosis?: No VTE Prior VTE?: No VTE Risk Level:: Medical - moderate - high VTE Device Contraindication: N/A - Device Ordered VTE Drug Contraindication: Treatment Not Indicated
[2021-05-04 09:51] VITALS: O2SAT 95
--- NOTE | 2021-05-04 13:50 | HO.PICC ---
PICC Line Insertion NPICC Diagnosis: [Diabetic foot infection] Indication: [fpc antibiotics needed] Pertinent Labs: [reviewed] Technique: Following informed consent including risks, benefits and alternatives and using sterile technique including cap and mask, sterile gown, glove and drape, the [right] arm was prepped and draped in the usual sterile fashion of full barrier technique with CHG. Following completion of [place] Protocol the skin and soft tissues were anesthetized with 1% Lidocaine plain. Using ultrasound guidance, [right basilic] vein access was obtained twice by Rick Medeiros RN, but unable to pass guidewire. Right brachial vein access was obtained on first attempt by Riana Calderon RN. Over an 0.018 wire through peel-away sheath, a [4FR] single lumen PICC line was positioned. Catheter length is [43 CM] internal length, [0 CM] external length, for a total trimmed length of [43 CM]. The procedure was performed in [S272]. Tip verification was performed by Isak Najera with [employer] 3CG. Tip located in SVC. Ultrasound was used to document vein patency and for needle entry. A formal ultrasound picture and cardiac rhythm strip was recorded. [facility] Broadcast Operations Technician has released the line for use and it is currently dressed with a StatLock, Tegaderm, and CHG disc. Verification has been performed for blood return and line patency. Arm Circumference: [33.5 CM] Equipment: [[employer] Power PICC Solo] Catheter Type: [4FR Single Lumen PICC] Lot #: [[id number]]
--- NOTE | 2021-05-04 14:13 | HO.PM.IMPN ---
Subjective Subjective Date of Service: 05/04/21 Interval History: dm foot ulcer Review of Systems pain seems controlled ? Denies any chest pain or shortness of breath or abdominal pain or fever or chills. Physical Exam Vital Signs: Vital Signs: Last Vital Signs Temp 98.4 F 05/04/21 07:56 Pulse 88 05/04/21 07:56 Resp 20 05/04/21 07:56 BP 146/80 H 05/04/21 07:56 Pulse Ox 95 05/04/21 09:51 BMI result Body Mass Index 33.6 General: AO X 3, no acute distress Resp:? CTA bilateral CVS: S1,S2,RRR GI: +BS, NT, no distention Skin: See pictures elsewhere Neuro:? motor grossly intact Psych: appropriate affect Objective Data Active Medications Acetaminophen (Acetaminophen 325 Mg Tablet) 650 mg PO Q6H PRN PRN Reason: Pain, Mild (Pain Scale 1-3) Amlodipine Besylate (Amlodipine Besylate 10 Mg Tablet) 10 mg PO DAILY [facility]; Protocol Last Admin: 05/04/21 08:26 Dose: 10 mg Documented by: AMAYA Dextrose (Dextrose 50 % 25 Gm/50 Ml Syringe) 25 gm IVPUSH Q15M PRN; Protocol PRN Reason: per Hypoglycemia Standing Ord. Glucose (Glucose Gel 15 Gm Gel..Gram.) 15 gm PO Q15M PRN; Protocol PRN Reason: per Hypoglycemia Standing Ord. Promethazine HCl 12.5 mg/ (Sodium Chloride) 50.5 mls @ 202 mls/hr IV ONCE PRN PRN Reason: Nausea and Vomiting Meropenem 1 gm/ Sodium (Chloride) 100 mls @ 200 mls/hr IV Q8H [facility] Last Infusion: 05/04/21 06:52 Dose: 0 mls/hr Documented by: SANDHYA Insulin Glargine (Insulin Glargine,Hum.Rec.Anlog 100 Unit/Ml 10 Ml Vial) 20 unit SUBCUT BEDTIME [facility] Last Admin: 05/03/21 21:56 Dose: 20 unit Documented by: SANDHYA Insulin Human Lispro (Insulin Lispro 100 Unit/Ml 3 Ml Vial) 0 unit SUBCUT QIDACHS [facility]; Protocol Last Admin: 05/04/21 08:25 Dose: 2 unit Documented by: AMAYA Metoprolol Succinate (Metoprolol Succinate Er 100 Mg Tab.Er.24h) 100 mg PO DAILY [facility]; Protocol Last Admin: 05/04/21 08:26 Dose: 100 mg Documented by: AMAYA Morphine Sulfate (Morphine Sulfate 4 Mg/Ml Cartridge) 4 mg IVPUSH Q2H PRN; Protocol PRN Reason: Pain, Severe (Pain Scale 7-10) Omeprazole (Omeprazole 20 Mg Capsule.Dr) 20 mg PO DAILY@0630 [facility] Last Admin: 05/04/21 06:14 Dose: 20 mg Documented by: SANDHYA Ondansetron HCl (Ondansetron Hcl 4 Mg/2 Ml Vial) 4 mg IVPUSH ONCE PRN PRN Reason: Nausea and Vomiting Pharmacy Consult (Consult Rx Perform Med Rec) 1 each MISCELLANE ONCE PRN PRN Reason: Consult order Rivaroxaban (Rivaroxaban 20 Mg Tablet) 20 mg PO DAILY@1700 [facility] Last Admin: 05/03/21 16:44 Dose: 20 mg Documented by: ZANA Sodium Chloride (0.9 % Sodium Chloride Flush 3 Ml Syringe) 3 ml IVFLUSH QSHIFT [facility] Last Admin: 05/04/21 08:25 Dose: 3 ml Documented by: AMAYA Labs CBC & Chem 7: 04/26/21 15:50 05/04/21 05:56 Labs: Laboratory Results - last 24 hr 05/03/21 05/03/21 05/04/21 15:12 19:48 05:56 Estim Creat Clear Calc Estimated GFR POC Glucose 247 H 206 H Vancomycin Trough 17.6 05/04/21 05/04/21 05:56 07:26 Estim Creat Clear Calc 86.6 Estimated GFR 55 POC Glucose 174 H Vancomycin Trough Assessment and Plan (1) Osteomyelitis: Status: Acute Plan 56-year-old male with a past medical history of hypertension, hyperlipidemia, diabetes, recent admission to the hospital for possible HHS/diabetic foot infection was antibiotics; presented to the hospital today with a chief complaint of right foot diabetic foot infection/discharge.? 1.Diabetic foot infection / necrosis/Sepsis s/p debridment vanco -continue? Zosyn/Vanco day 6, cutlure no growth, ID following recoemended? Ertapenem for 6 wks -started doripenem , stop vanco and zosyn. follow up cbc , bmp , lft's , esr,cpk weekly while on antibiotics. -Angiogram by [facility]ascular yesterday-diabetic foot ulceration.Status post extensive debridement right foot, wounds seems to be improvin,Dry gangrene of the 5th toe, dressing chnages as per surgery PICC line today for IV antibiotics as per ID recommendation Continue local wound care per General surgery team-further management . 2.Diabetes-better control:fs running 170-200 -continue Lantus, SSI, ADA and adjust med as needed 3.HTN--Controlled, continue Norvasc. 4.Chronic AFIB--controlled, Xarelto may need started once ok with primary team DVT prophylaxis-xarelto Quality Stroke Does the patient have a stroke diagnosis?: No VTE Prior VTE?: No VTE Risk Level:: Medical - moderate - high VTE Device Contraindication: N/A - Device Ordered VTE Drug Contraindication: Treatment Not Indicated
--- NOTE | 2021-05-04 14:35 | P.CDIC_ITS ---
CDI Concurrent Query Documentation Clarification: PHYSICIAN'S DOCUMENTATION REQUEST Date of Query: 05/04/21 1436 Patient Name: Silvestre Stallings Jr Admit Date: 04/26/21 Dear Doctor, A review of the medical record indicates additional documentation may be needed. Please review below and update the documentation accordingly. Clinical Indicators: Documentation on [insert date] indicates Osteomyelitis. Risk Factors/Clinical Indicators/Treatments Diabetic foot infection with necrosis with osteomylelitis Per MD progress note 05/04/21: Status post extensive debridement right foot Based on the above, please clarify in the Progress Notes further specificity regarding the type of Osteomyelitis. Also include specific site with laterality and known or suspected infectious agent: * Acute osteomyelitis * Subacute osteomyelitis * Chronic osteomyelitis * Other (please specify) * Unable to determine Use of terms such as suspected, likely, concern for, or probable (associated with a specific diagnosis that is being evaluated, monitored, or treated as if it exists) are acceptable and can be coded in the inpatient setting, when documented at the time of discharge. Thank you, Mona Lipscomb RN Extension:[phone] Please use your independent medical judgment in providing your response. THIS QUERY IS PART OF THE PERMANENT MEDICAL RECORD Provider Response: Other (Acute osteomyelitis) Other Diagnosis: Acute osteomyelitis of the tarsal bones
[2021-05-04 15:50] VITALS: BP 162/78; PULSE 92; RESP 17; TEMP 37.2; O2SAT 97
[2021-05-04 16:31] LABS: Glucose, Whole Blood 238 mg/dL (60-115)
[2021-05-04] MEDS: Rivaroxaban 20 MG TABLET PO (17:05)
[2021-05-04 19:25] VITALS: BP 148/77; PULSE 77; RESP 16; TEMP 36.4; O2SAT 97
[2021-05-04 20:09] LABS: Glucose, Whole Blood 214 mg/dL (60-115)
[2021-05-04] MEDS: Insulin Glargine,Hum.rec.anlog 100 UNIT/ML 10 ML VIAL 20 UNIT SUBCUT (20:54)
[2021-05-05] VITALS: BP 139/80; PULSE 97; RESP 18; TEMP 36.8; O2SAT 98
[2021-05-05] MEDS: 0.9 % Sodium Chloride Flush 3 ML SYRINGE IVFLUSH ×2 (00:16→07:41)
[2021-05-05] MEDS: Omeprazole 20 MG CAPSULE.DR PO (06:08)
--- NOTE | 2021-05-05 06:24 | PC.NURSE ---
Dressing to right foot intact, soiled with drainage, this nurse attempted to change dressing but patient refused, reporting it is changed in the morning by md. Patient denies any pain or discomfort at this time.
[2021-05-05 06:43] LABS: Creatinine Clr Calc Pharmacy 73.4; Estimated Glomerular Filt Rate 46
[2021-05-05 07:19] LABS: Glucose, Whole Blood 203 mg/dL (60-115)
[2021-05-05 07:39] VITALS: BP 144/81; PULSE 88; RESP 18; TEMP 36.3; O2SAT 96
[2021-05-05] MEDS: Insulin Lispro 100 UNIT/ML 3 ML VIAL SUBCUT ×2 (07:40→12:02)
[2021-05-05] MEDS: amLODIPine Besylate 10 MG TABLET PO (07:40)
[2021-05-05] MEDS: Metoprolol Succinate ER 100 MG TAB.ER.24H PO (07:40)
--- NOTE | 2021-05-05 08:28 | P.PNIM_ITS ---
Subjective Subjective Date of Service: 05/06/21 Interval History: hussein vs ckd Review of Systems dm foot ulcer-pain seems controlled, ? Denies any chest pain or shortness of breath or abdominal pain or fever or chills. Physical Exam Vital Signs: Vital Signs: Last Vital Signs Temp 97.3 F 05/05/21 07:39 Pulse 88 05/05/21 07:39 Resp 18 05/05/21 07:39 BP 144/81 H 05/05/21 07:39 Pulse Ox 96 05/05/21 07:39 BMI result Body Mass Index 33.6 General: AO X 3, no acute distress Resp:? CTA bilateral CVS: S1,S2,RRR GI: +BS, NT, no distention Skin: right foot open wounds - generally granulating, clean except for near 5th toe, with dry gangrene, much improved Neuro:? motor grossly intact Psych: appropriate affect Objective Data Active Medications Acetaminophen (Acetaminophen 325 Mg Tablet) 650 mg PO Q6H PRN PRN Reason: Pain, Mild (Pain Scale 1-3) Amlodipine Besylate (Amlodipine Besylate 10 Mg Tablet) 10 mg PO DAILY [facility]; Protocol Last Admin: 05/05/21 07:40 Dose: 10 mg Documented by: AMAYA Dextrose (Dextrose 50 % 25 Gm/50 Ml Syringe) 25 gm IVPUSH Q15M PRN; Protocol PRN Reason: per Hypoglycemia Standing Ord. Glucose (Glucose Gel 15 Gm Gel..Gram.) 15 gm PO Q15M PRN; Protocol PRN Reason: per Hypoglycemia Standing Ord. Promethazine HCl 12.5 mg/ (Sodium Chloride) 50.5 mls @ 202 mls/hr IV ONCE PRN PRN Reason: Nausea and Vomiting Meropenem 1 gm/ Sodium (Chloride) 100 mls @ 200 mls/hr IV Q8H [facility] Last Infusion: 05/05/21 07:20 Dose: 0 mls/hr Documented by: AMAYA Insulin Glargine (Insulin Glargine,Hum.Rec.Anlog 100 Unit/Ml 10 Ml Vial) 20 unit SUBCUT BEDTIME [facility] Last Admin: 05/04/21 20:54 Dose: 20 unit Documented by: LISA Insulin Human Lispro (Insulin Lispro 100 Unit/Ml 3 Ml Vial) 0 unit SUBCUT QID [facility]; Protocol Last Admin: 05/05/21 07:40 Dose: 4 unit Documented by: AMAYA Metoprolol Succinate (Metoprolol Succinate Er 100 Mg Tab.Er.24h) 100 mg PO DAILY [facility]; Protocol Last Admin: 05/05/21 07:40 Dose: 100 mg Documented by: AMAYA Morphine Sulfate (Morphine Sulfate 4 Mg/Ml Cartridge) 4 mg IVPUSH Q2H PRN; Protocol PRN Reason: Pain, Severe (Pain Scale 7-10) Omeprazole (Omeprazole 20 Mg Capsule.Dr) 20 mg PO DAILY@0630 [facility] Last Admin: 05/05/21 06:08 Dose: 20 mg Documented by: LISA Ondansetron HCl (Ondansetron Hcl 4 Mg/2 Ml Vial) 4 mg IVPUSH ONCE PRN PRN Reason: Nausea and Vomiting Pharmacy Consult (Consult Rx Perform Med Rec) 1 each MISCELLANE ONCE PRN PRN Reason: Consult order Rivaroxaban (Rivaroxaban 20 Mg Tablet) 20 mg PO DAILY@1700 [facility] Last Admin: 05/04/21 17:05 Dose: 20 mg Documented by: AMAYA Sodium Chloride (0.9 % Sodium Chloride Flush 3 Ml Syringe) 3 ml IVFLUSH QSHIFT [facility] Last Admin: 05/05/21 07:41 Dose: 3 ml Documented by: AMAYA Labs CBC & Chem 7: 04/26/21 15:50 05/05/21 06:01 Labs: Laboratory Results - last 24 hr 05/04/21 05/04/21 05/04/21 05:56 15:53 19:27 Estim Creat Clear Calc Estimated GFR POC Glucose 238 H 214 H Vancomycin Trough 17.6 05/05/21 05/05/21 06:01 06:59 Estim Creat Clear Calc 73.4 Estimated GFR 46 POC Glucose 203 H Vancomycin Trough Assessment and Plan (1) Osteomyelitis: Status: Acute Plan 56-year-old male with a past medical history of hypertension, hyperlipidemia, diabetes, recent admission to the hospital for possible HHS/diabetic foot infection was antibiotics; presented to the hospital today with a chief complaint of right foot diabetic foot infection/discharge.? 1.Diabetic foot infection / necrosis/Sepsis s/p debridment Patient already received antibiotic for almost 1 week, we will add 5 more week of ertapenem. -Angiogram by Vascular yesterday-diabetic foot ulceration.? He is stable from an arterial perspective for any further amputation if required.? Continue local wound care per General surgery team. Discuss by surgery in detail, please see surgery note. . 2.Diabetes-better control: -continue Lantus, SSI, ADA and adjust med as needed 3.HTN--Controlled, continue Norvasc. 4.Chronic AFIB--controlled, Xarelto may need started once ok with primary team 5.? question CKD: Patient creatinine is fluctuating between 1.3-1.5 range , patient was encouraged for p.o. hydration and intake also was advised to follow- up electrolytes closely outpatient with PCP specially when on antibiotics. Also consider follow-up outpatient with Nephrology, instructions given. DVT prophylaxis-xarelto patient understand above in detail, and in agreement with the above plan, in addition surgery had discussed the case with patient in detail length. Above was discussed with primary team in detail also. Patient is to follow-up says CBC BMP, ESR, CRP, liver panel Q weekly while on antibiotics- next are should be on . Quality Stroke Does the patient have a stroke diagnosis?: No VTE Prior VTE?: No VTE Risk Level:: Medical - moderate - high VTE Device Contraindication: N/A - Device Ordered VTE Drug Contraindication: Treatment Not Indicated
[2021-05-05 10:00] VITALS: O2SAT 95
[2021-05-05 11:09] LABS: Glucose, Whole Blood 285 mg/dL (60-115)
[2021-05-05 12:00] VITALS: BP 138/77; PULSE 89; RESP 18; TEMP 36.9; O2SAT 93
--- NOTE | 2021-05-05 13:25 | PM.PNGS ---
Subjective Subjective Date of Service: 05/05/21 Interval history: feels well says he will go home today regardless of araangements denies complaints Physical Exam Vital Signs: Vital Signs: Last Vital Signs Temp 98.4 F 05/05/21 12:00 Pulse 89 05/05/21 12:00 Resp 18 05/05/21 12:00 BP 138/77 05/05/21 12:00 Pulse Ox 93 05/05/21 12:00 BMI result Body Mass Index 33.6 Const: General: comfortable and no acute distress Resp: Effort & Inspection: normal respiratory effort Extrem: Other: right foot open wounds - generally granulating, clean except for near 5th toe, with dry gangrene, much improved Objective Data Active Medications Acetaminophen (Acetaminophen 325 Mg Tablet) 650 mg PO Q6H PRN PRN Reason: Pain, Mild (Pain Scale 1-3) Amlodipine Besylate (Amlodipine Besylate 10 Mg Tablet) 10 mg PO DAILY [facility]; Protocol Last Admin: 05/05/21 07:40 Dose: 10 mg Documented by: AMAYA Dextrose (Dextrose 50 % 25 Gm/50 Ml Syringe) 25 gm IVPUSH Q15M PRN; Protocol PRN Reason: per Hypoglycemia Standing Ord. Glucose (Glucose Gel 15 Gm Gel..Gram.) 15 gm PO Q15M PRN; Protocol PRN Reason: per Hypoglycemia Standing Ord. Promethazine HCl 12.5 mg/ (Sodium Chloride) 50.5 mls @ 202 mls/hr IV ONCE PRN PRN Reason: Nausea and Vomiting Meropenem 1 gm/ Sodium (Chloride) 100 mls @ 200 mls/hr IV Q8H [facility] Last Infusion: 05/05/21 07:20 Dose: 0 mls/hr Documented by: AMAYA Insulin Glargine (Insulin Glargine,Hum.Rec.Anlog 100 Unit/Ml 10 Ml Vial) 20 unit SUBCUT BEDTIME [facility] Last Admin: 05/04/21 20:54 Dose: 20 unit Documented by: LISA Insulin Human Lispro (Insulin Lispro 100 Unit/Ml 3 Ml Vial) 0 unit SUBCUT QIDACHS [facility]; Protocol Last Admin: 05/05/21 12:02 Dose: 6 unit Documented by: MARYANN Metoprolol Succinate (Metoprolol Succinate Er 100 Mg Tab.Er.24h) 100 mg PO DAILY [facility]; Protocol Last Admin: 05/05/21 07:40 Dose: 100 mg Documented by: AMAYA Morphine Sulfate (Morphine Sulfate 4 Mg/Ml Cartridge) 4 mg IVPUSH Q2H PRN; Protocol PRN Reason: Pain, Severe (Pain Scale 7-10) Omeprazole (Omeprazole 20 Mg Capsule.) 20 mg PO DAILY@0630 [facility] Last Admin: 05/05/21 06:08 Dose: 20 mg Documented by: LISA Ondansetron HCl (Ondansetron Hcl 4 Mg/2 Ml Vial) 4 mg IVPUSH ONCE PRN PRN Reason: Nausea and Vomiting Pharmacy Consult (Consult Rx Perform Med Rec) 1 each MISCELLANE ONCE PRN PRN Reason: Consult order Rivaroxaban (Rivaroxaban 20 Mg Tablet) 20 mg PO DAILY@1700 [facility] Last Admin: 05/04/21 17:05 Dose: 20 mg Documented by: AMAYA Sodium Chloride (0.9 % Sodium Chloride Flush 3 Ml Syringe) 3 ml IVFLUSH QSHIFT [facility] Last Admin: 05/05/21 07:41 Dose: 3 ml Documented by: AMAYA Labs CBC & Chem 7: 04/26/21 15:50 05/05/21 06:01 Labs: Laboratory Results - last 24 hr 05/04/21 05/04/21 05/05/21 15:53 19:27 06:01 Estim Creat Clear Calc 73.4 Estimated GFR 46 POC Glucose 238 H 214 H 05/05/21 05/05/21 06:59 10:54 Estim Creat Clear Calc Estimated GFR POC Glucose 203 H 285 H Procedures Date of Service Date of Service: 05/05/21 Progress Note: A&P Assessment and plan (1) Diabetic foot infection: Status: Acute Assessment and Plan: s/p debridement dressings changed liver alginate applied foot wrapped in Kerlix pt says he will go home today - says he will sign out AMA if not be explained to him I prefer to be able to monitor wound closely he says he will see me in office on Saturday abx viia PICC line he understands there is no guarantee we can save foot VNA also arranged Fall Risk Details Current Medications: Current Medications Acetaminophen (Acetaminophen 325 Mg Tablet) 650 mg PO Q6H PRN PRN Reason: Pain, Mild (Pain Scale 1-3) Amlodipine Besylate (Amlodipine Besylate 10 Mg Tablet) 10 mg PO DAILY [facility]; Protocol Last Admin: 05/05/21 07:40 Dose: 10 mg Documented by: Dextrose (Dextrose 50 % 25 Gm/50 Ml Syringe) 25 gm IVPUSH Q15M PRN; Protocol PRN Reason: per Hypoglycemia Standing Ord. Glucose (Glucose Gel 15 Gm Gel..Gram.) 15 gm PO Q15M PRN; Protocol PRN Reason: per Hypoglycemia Standing Ord. Promethazine HCl 12.5 mg/ (Sodium Chloride) 50.5 mls @ 202 mls/hr IV ONCE PRN PRN Reason: Nausea and Vomiting Meropenem 1 gm/ Sodium (Chloride) 100 mls @ 200 mls/hr IV Q8H [facility] Last Infusion: 05/05/21 07:20 Dose: Infused Documented by: Insulin Glargine (Insulin Glargine,Hum.Rec.Anlog 100 Unit/Ml 10 Ml Vial) 20 unit SUBCUT BEDTIME [facility] Last Admin: 05/04/21 20:54 Dose: 20 unit Documented by: Insulin Human Lispro (Insulin Lispro 100 Unit/Ml 3 Ml Vial) 0 unit SUBCUT QIDACHS [facility]; Protocol Last Admin: 05/05/21 12:02 Dose: 6 unit Documented by: Metoprolol Succinate (Metoprolol Succinate Er 100 Mg Tab.Er.24h) 100 mg PO DAILY [facility]; Protocol Last Admin: 05/05/21 07:40 Dose: 100 mg Documented by: Morphine Sulfate (Morphine Sulfate 4 Mg/Ml Cartridge) 4 mg IVPUSH Q2H PRN; Protocol PRN Reason: Pain, Severe (Pain Scale 7-10) Omeprazole (Omeprazole 20 Mg Capsule.Dr) 20 mg PO DAILY@0630 [facility] Last Admin: 05/05/21 06:08 Dose: 20 mg Documented by: Ondansetron HCl (Ondansetron Hcl 4 Mg/2 Ml Vial) 4 mg IVPUSH ONCE PRN PRN Reason: Nausea and Vomiting Pharmacy Consult (Consult Rx Perform Med Rec) 1 each MISCELLANE ONCE PRN PRN Reason: Consult order Rivaroxaban (Rivaroxaban 20 Mg Tablet) 20 mg PO DAILY@1700 [facility] Last Admin: 05/04/21 17:05 Dose: 20 mg Documented by: Sodium Chloride (0.9 % Sodium Chloride Flush 3 Ml Syringe) 3 ml IVFLUSH QSHIFT [facility] Last Admin: 05/05/21 07:41 Dose: 3 ml Documented by: Time Spent With Patient Time: Total time spent is greater than 50% in coordination of care (as documented) at patient's floor/unit and/or counseling patient: Time with patient: 15 - 24 minutes Quality Stroke Does the patient have a stroke diagnosis?: No VTE Prior VTE?: No VTE Risk Level:: Medical - moderate - high VTE Device Contraindication: N/A - Device Ordered VTE Drug Contraindication: Treatment Not Indicated
--- NOTE | 2021-05-05 13:34 | MHC.CM.PN ---
PATIENT IS DC HOME TODAY WITH [facility] AND NA START OF CARE TOMORROW (05/06/21) [facility] TO DELIVER ABX BY END OF DAY TODAY. PATIENT AND MOTHER (IN ROOM) AWARE OF PLAN.
--- NOTE | 2021-05-05 13:35 | W.MHC.F2F ---
Service Date Service Date: 05/05/21 Encounter Date of encounter: 05/05/21 Reasons for Services Signs and symptoms assessed: Diabetic foot infection, dm Reason for prison: wound care (3 times /week), administration of IV, SQ, or IM injection (patient has picc line. please remove picc line at end of antibiotics 06/09.), medication management, medication treatment and teach disease management MD Overseeing Care: Félix Carlton Homebound: Leaving the home is medically contraindicated at this time without the asist of a device and/or another person due th the listed conditions above and below. Reason homebound: weakness related to hospital stay Homebound supporting statement: patient has multiple comorbidities, needs IV antibiotics for are diabetic foot, and also need help to go to appointments. Check CBC, BMP, ESR, CRP, liver panel weekly while on antibiotic, next blood draw should be on coming Saturday05/08/21. Certification: Based on the above findings, I certify that this patient is confined to the home and needs intermittent prison care, physical therapy and/or speech therapy, or continues to need occupational therapy. The patient is under my care, and I have initiated the establishment of the plan of care. The patient will be followed by a physician who will periodically review the plan of care.
--- NOTE | 2021-05-05 13:45 | PM.DS ---
DS: Providers Provider Date of Service: 05/05/21 Date of admission: 04/26/21 21:24 Date of discharge: 05/05/21 Primary care physician: Félix Carlton MD Admitting clinician: Chris Crowell Attending physician on admission: Chris Crowell Consults: 04/26/21 21:27 Consult to Hospitalist Routine Consulting Provider: Hospitalist Reason For Exam: DM, atrial fibrillation 04/26/21 22:01 Consult to Infectious Diseases Routine Consulting Provider: Mónica Villar Reason for consultation: DM foot infection /Necrosis 04/27/21 12:10 Consult to Vascular Surgery Routine Consulting Provider: Ramiro Figueredo Reason for consultation: DM foot, with multiple wounds with eschar, dry gangrene of the 5th toe 05/05/21 08:27 Consult to Nephrology Routine Consulting Provider: Miguel Marks Reason for consultation: hussein vs ckd Has provider been notified: No DS: Diagnosis Discharge Diagnosis (1) Diabetic foot infection: Start date: 04/26/21 Status: Acute DS: Summary Hospital Course Hospital Course: The patient is a 56-year-old male, with longstanding diabetes, who had been recently admitted for new onset AFib as well as a diabetic foot infection. He was being followed in the wound care clinic and was sent to the ER on 04/26/2020 because of worsening infection of the right foot. There was note of thick eschar, dry gangrene of the 5th toe as well as the part of the 3rd toe at that time. He was brought to the operating room on 04/27/2020 and he underwent aggressive and extensive debridement of the right foot. He had 2 wounds on the dorsum of the right foot as well as the plantar aspect. He underwent daily dressing change with initially wet to dry and then was switched to silver alginate dressing. The has been very good improvement of his right foot although there is dry gangrene of the 5th toe and the distal toe. There is therefore some fibrinous exudates on the base of the 5th toe. He repeatedly stated that he wanted to continue with wound care and try to salvage the right foot. He understood that there is no guarantee that this is going to happen. furthermore, he needed IV antibiotics as recommended by the infectious disease service and had a PICC line done 05/04/2020 for this. He also had issue of atrial fibrillation but this had been rate controlled. He was restarted on his anticoagulant after his debridement . He was being followed by the hospitalist service as well as the infectious disease service to his admission. The plan is to continue wound care with visiting nurse. I will see him in the office on SaturdayMay 08. The patient insists on going home today . Time spent discussing smoking cessation with patient: more than 10 minutes Status at Discharge Functional status at discharge: uses cane/walker Time Spent with Patient Time attestation: Total time spent providing and/or coordinating discharge services: Discharge coordination time: Greater than 30 minutes Quality: Stroke Does the patient have a stroke diagnosis?: No Physical Exam Vital Signs: Vital Signs: Last Vital Signs Temp 98.4 F 05/05/21 12:00 Pulse 89 05/05/21 12:00 Resp 18 05/05/21 12:00 BP 138/77 05/05/21 12:00 Pulse Ox 93 05/05/21 12:00 BMI result Body Mass Index 33.6 Const: General: comfortable and no acute distress Resp: Effort & Inspection: normal respiratory effort Cardio: Rhythm: abnormal rhythm GI: Palpation (GI): Soft to palpation and nontender Extrem: Other: Open wound on the plantar aspect the right foot as well as the dorsal aspect. Two wounds on the dorsal aspect PT generally granulating well except for dry gangrene of the 5th toe the 3rd toe. Some fibrinous exudates, patchy seen DS: Data Data Completed and Pending Completed studies during hospitalization [Text1]: Pending at discharge 04/27/21 11:42 Surgical [PTH] Routine Labs on day of discharge: Laboratory Results - last 24 hr 05/04/21 05/04/21 05/05/21 15:53 19:27 06:01 Creatinine 1.58 H Estim Creat Clear Calc 73.4 Estimated GFR 46 POC Glucose 238 H 214 H 05/05/21 05/05/21 06:59 10:54 Creatinine Estim Creat Clear Calc Estimated GFR POC Glucose 203 H 285 H Discharge Plan Discharge Patient Disposition: Home Health Service Discharge Diagnosis: dm foot infection Referrals: Sonal RIVERO [Outside] - 1 Week Félix Carlton MD [Primary Care Provider] - 1 Week Chris Crowell MD [Physician] - 1 Week Miguel Marks MD [Physician] - 1 Week (folLow up outpatiently) Discharge Medications: New ertapenem 1 gram recon soln 1 g IM DAILY Qty: 35 0RF Rx Instructions: last date 06/09. Continued Xarelto 20 mg tablet 20 mg PO DAILY@1700 0RF Rx Instructions: must administer with evening meal omeprazole 20 mg Capsule,Delayed Release(Dr/Ec) 20 mg PO DAILY 0RF amlodipine 10 mg Tablet 10 mg PO DAILY 30 Days Qty: 30 0RF Protocol: Hold for SBP< HOLD for SBP < : 90 metformin 500 mg tablet 500 mg PO BID Qty: 60 0RF metoprolol succinate 100 mg tablet extended release 24 hr 100 mg PO DAILY Qty: 30 0RF insulin lispro [Humalog KwikPen Insulin] 100 unit/mL insulin pen See Protocol sliding scale dose subcut QIDACHS MDD 40 Qty: 15 0RF Protocol: Insulin Correction Scale Less than or equal to 110 ---- Give (units): 0 111 to 150 Give (units): 0 151 to 200 Give (units): 2 201 to 250 Give (units): 4 251 to 300 Give (units): 6 301 to 350 Give (units): 8 Greater than 350 Give (units): 10 Call MD if Blood Glucose > : 350 Rx Instructions: See Protocol subcutaneously Changed insulin glargine 100 unit/mL (3 mL) insulin pen 20 unit subcut BEDTIME Qty: 0 0RF Discharge Orders: Discharge Order (Routine); Ordered 05/05/21 Ordered By: Chris Crowell Diet: advance to usual diet Activity on Discharge: As tolerated Stand Alone Forms: Patient Portal Discharge page Other Ambulatory Orders: Basic Metabolic Panel (Routine) Timeframe: 1 Week Facility: [facility] - Location: Laboratory Ordered By: Wallace Carrion Complete Blood Count no Diff (Routine) Timeframe: 1 Week Facility: [facility] - Location: Laboratory Ordered By: Wallace Carrion C Reactive Protein (Routine) Timeframe: 1 Week Facility: [facility] - Location: Laboratory Ordered By: Wallace Carrion Erythrocyte Sedimentation Rate (Routine) Timeframe: 1 Week Facility: [facility] - Location: Laboratory Ordered By: Wallace Carrion Liver Panel (Routine) Timeframe: 1 Week Facility: [facility] - Location: Laboratory Ordered By: Wallace Carrion Activity Restrictions/Additional Instructions: silver alginate dressings to open wounds on foot with VNA wrap foot in thick fluffs and Kerlix elevate foot call office for ffup Monday 05/08 Care Plan Goals: patient came to the hospital because foot infection diabetic: Subsequently had diabetic med done with general surgery: His foot infection area seems to be improving, blood culture negative, seen by infectious disease and recommended total 6 week of IV antibiotic patient already almost received 1 week of antibiotics - on a discharge added ertapenem to complete course last date 06/09. Patient has probably move mild CKD: Encouraged for p.o. hydration, creatinine is fluctuating between 1.3-1.5 range. Monitor renal function and electrolytes outpatient with PCP, consider outpatient nephrology evaluation. patient needs to be monitored CBC, BMP, liver panel, ESR, CRP Q weekly next lab check should be on this Saturday05/08/21. patient is going home with home VNA. Please see surgical instructions for dressing change. Health Concerns: As above. Plan of Treatment: As above. Assessment: As above. Discharge Date/Time: 05/05/21 14:20
--- NOTE | 2021-05-05 15:07 | MHC.CM.PN ---
POST DC NOTE CALL TO PATIENT TO REMIND HIM TO CALL DR LINARES ON SATURDAY FOR A FOLLOW-UP APPOINTMENT MOTHER HERMES AWARE AND IN AGREEMENT
--- NOTE | 2021-05-06 15:38 | MHC.CM.PN ---
CM RECEIVED CALL FROM PT'S VNA JULIAN REPORTING THAT PT HAD A SECOND DELIVERY OF IV ROCEPHIN AND WAS ASKING IF ANY CHANGES HAD BEEN MADE TO ORDER, CM REVIEWED D/C PLAN AND SUMMARY AND IV ABX ORDER FORM AND NO CHANGES WERE MADE, THIS CM CONTACTED PT'S MOTHER WHO GAVE PHONE TO VNA AND THIS CM VERIFIED THE SECOND DELIVERY WAS FOR A DIFFERENT [facility] PT, [facility] HAS BEEN NOTIFIED OF ERROR.
--- NOTE | 2021-05-11 07:01 | P.CDIR_ITS ---
Retrospective Query PHYSICIAN'S DOCUMENTATION REQUEST Date of Query: 05/11/21 0703 Patient Name: Silvestre Stallings Jr Admit Date: 04/26/21 Dear Doctor, A review of the medical record indicates additional documentation may be needed. Please review below and update the documentation accordingly. Risk Factors/Clinical Indicators/Treatments Per MD progress note 05/05/21: Diabetic foot infection / necrosis/Sepsis s/p debridement Per Discharge Summary 05/05/21: Diabetic foot infection Based on the above, could you clarify in the Progress Notes the appropriate diagnosis, if significant, that supports the above abnormalities and additional evaluation, monitoring, and/or treatment rendered: * Sepsis, present on admission * Sepsis, ruled out * Other (please specify) * Unable to determine Use of terms such as suspected, likely, concern for, or probable (associated with a specific diagnosis that is being evaluated, monitored, or treated as if it exists) are acceptable and can be coded in the inpatient setting, when documented at the time of discharge. Thank you, Mona Lipscomb RN Extension: [phone] Please use your independent medical judgment in providing your response. THIS QUERY IS PART OF THE PERMANENT MEDICAL RECORD
--- NOTE | 2021-06-22 09:21 | P.CDIR_ITS ---
Documented by User: Mona Lipscomb RN 06/22/21 09:28 Retrospective Query PHYSICIAN'S DOCUMENTATION REQUEST Date of Query: 06/22/21923 Patient Name: Silvestre Stallings Jr Admit Date: 04/26/21 Dear Doctor, A review of the medical record indicates additional documentation may be needed. Please review below and update the documentation accordingly. Clinical Indicators: The diagnosis of Sepsis was documented on 05/05/21 but is not consistently noted in subsequent documentation of Discharge Summary Risk Factors/Clinical Indicators/Treatments Per MD progress note 05/05/21:Diabetic foot infection / necrosis/Sepsis s/p debridement Per Discharge Summary 05/05/21:Diabetic foot infection Please clarify the following: * Sepsis, present on admission * Sepsis, ruled out * Other (please specify) * Unable to determine Use of terms such as suspected, likely, concern for, or probable (associated with a specific diagnosis that is being evaluated, monitored, or treated as if it exists) are acceptable and can be coded in the inpatient setting, when documented at the time of discharge. Thank you, Mona Lipscomb RN Extension: [phone] Please use your independent medical judgment in providing your response. THIS QUERY IS PART OF THE PERMANENT MEDICAL RECORD Documented by User: Chris Crowell MD 06/27/21 15:31 Retrospective Query Provider Response: Sepsis
== END 2021-05-05 14:20 | disposition home health service (06) | DRG 710 ==
LOC: HO.ED 19:21 → HO.EDOVER 21:42 → HO.S3 04-27 03:06
PROVIDERS: Hospitalist; Physician Assistant; Surgery Vascular Surgery; Admitting Provider Surgery; Emergency Provider Internal Medicine; PCP Internal Medicine; Visit Provider Surgery
PROC: 0LBV0ZZ Excision of Right Foot Tendon, Open Approach (ICD-10-PCS; principal; 2021-04-27 11:00)
PROC: B41DZZZ Fluoroscopy of Aorta and Bilateral Lower Extremity Arteries (ICD-10-PCS; principal; 2021-05-01 12:30)
DX: A41.9 Sepsis, unspecified organism (principal); I70.261 Atherosclerosis of native arteries of extremities with gangrene, right leg; E11.52 Type 2 diabetes mellitus with diabetic peripheral angiopathy with gangrene; E11.22 Type 2 diabetes mellitus with diabetic chronic kidney disease; M86.171 Other acute osteomyelitis, right ankle and foot; I48.20 Chronic atrial fibrillation, unspecified; E11.40 Type 2 diabetes mellitus with diabetic neuropathy, unspecified; E11.69 Type 2 diabetes mellitus with other specified complication; L97.819 Non-pressure chronic ulcer of other part of right lower leg with unspecified severity; Z20.822 Contact with and (suspected) exposure to COVID-19; E78.5 Hyperlipidemia, unspecified; N18.9 Chronic kidney disease, unspecified; Z23 Encounter for immunization; Z87.891 Personal history of nicotine dependence; Z79.4 Long term (current) use of insulin; Z91.14 Patient's other noncompliance with medication regimen; Z79.01 Long term (current) use of anticoagulants; Z79.84 Long term (current) use of oral hypoglycemic drugs; Z79.899 Other long term (current) drug therapy
CPT/HCPCS: 36247; 36415; 36573; 73701; 75630; 76937; 80053; 80202; 82565; 82947; 83605; 85025; 85652; 86140; 87040; 87071; 87205; 87635; 88304; 93923; 93925; 96361; 96365; 96375; 97110; 97161; 99024; 99152; 99153; 99284; 99291; C1751; C1769; C1887; J2185; J2250; J2405; J2543; J3010; J3370; Q9967

== ENCOUNTER → 2021-05-08 14:29 | Outpatient (BNVA) | payer OTHER, SELFPAY | PROVIDERS: PCP Internal Medicine; Referring Provider Internal Medicine; Visit Provider Surgery ==

== ENCOUNTER 2021-05-10 14:58 | Outpatient (REF) | payer OTHER, SELFPAY ==
[2021-05-10 15:03] LABS: MANUAL DIFF FLAG NO
[2021-05-10 15:12] LABS: Basophils Absolute Auto 0.1 X10*3/uL (0.0-0.2); Basophils Percent Auto 0.9 % (0-2); Eosinophils Absolute Auto 0.4 X10*3/uL (0.0-0.4); Eosinophils Percent Auto 3.9 % (0-4); Hematocrit 28.2 % (42.0-52.0); Imm Gran Abs Auto 0.04 X10*3/uL (0.00-0.03); Imm Gran Pct Auto 0.4 % (0.0-0.4); Lymphocytes Absolute Auto 2.7 X10*3/uL (1.2-4.9); Lymphocytes Percent Auto 28.2 % (20-40); Mean Corpuscular HGB Conc 31.9 g/dl (31.0-36.0); Mean Corpuscular Hemoglobin 28.4 pg (27.0-33.0); Mean Platelet Volume 9.6 fL (9.4-12.4); Monocytes Absolute Auto 0.7 X10*3/uL (0.1-1.2); Neutrophils Absolute Auto 5.8 x10*3/uL (2.0-8.3); Neutrophils Percent Auto 59.6 % (45-73); Platelet Count 579 X10*3/uL (160-400); Red Blood Count 3.17 X10*6/uL (4.60-5.80); White Blood Count 9.7 X10*3/uL (4.8-10.8)
[2021-05-10 16:00] LABS: Alanine Aminotransferase 13 U/L (0-40); Albumin Level 2.7 g/dL (3.5-5.0); Alkaline Phosphatase 73 U/L (39-117); Anion Gap 12 (12-20); Aspartate Amino Transferase 21 U/L (5-37); Bilirubin Direct < 0.2 mg/dL (0.0-0.5); Bilirubin Total < 0.2 mg/dL (0.0-1.0); Blood Urea Nitrogen 11 mg/dL (9-16); Calcium 8.7 mg/dL (8.4-10.2); Carbon Dioxide 30 mmol/L (22-29); Chloride 98 mmol/L (96-108); Estimated Glomerular Filt Rate 57; Glucose Random 145 mg/dL (60-115); Potassium 4.7 mmol/L (3.3-5.1); Sodium 135 mmol/L (135-145); Total Protein 8.3 g/dL (6.5-8.0)
[2021-05-10 16:07] LABS: Erythrocyte Sedimentation Rate 116 MM/HR (0-15)
== END 2021-05-10 14:59 | disposition home or self-care (01) ==
LOC: HO.HVNA 14:58
PROVIDERS: Visit Provider Internal Medicine
DX: E11.621 Type 2 diabetes mellitus with foot ulcer (principal)
CPT/HCPCS: 36415; 80048; 80076; 85025; 85652; 86140

== ENCOUNTER 2021-05-17 | Outpatient (REF) | payer OTHER, SELFPAY ==
[2021-05-17 15:44] LABS: MANUAL DIFF FLAG NO
[2021-05-17 15:48] LABS: Basophils Absolute Auto 0.1 X10*3/uL (0.0-0.2); Eosinophils Absolute Auto 0.4 X10*3/uL (0.0-0.4); Eosinophils Percent Auto 3.3 % (0-4); Hematocrit 29.8 % (42.0-52.0); Hemoglobin 9.6 g/dl (14.0-18.0); Imm Gran Abs Auto 0.04 X10*3/uL (0.00-0.03); Imm Gran Pct Auto 0.4 % (0.0-0.4); Lymphocytes Absolute Auto 2.6 X10*3/uL (1.2-4.9); Lymphocytes Percent Auto 23.4 % (20-40); Mean Corpuscular HGB Conc 32.2 g/dl (31.0-36.0); Mean Corpuscular Volume 86.9 fL (80.0-98.0); Monocytes Absolute Auto 0.7 X10*3/uL (0.1-1.2); Monocytes Percent Auto 6.3 % (2-11); Neutrophils Absolute Auto 7.3 x10*3/uL (2.0-8.3); Neutrophils Percent Auto 65.6 % (45-73); Platelet Count 536 X10*3/uL (160-400); Red Blood Count 3.43 X10*6/uL (4.60-5.80); White Blood Count 11.2 X10*3/uL (4.8-10.8)
[2021-05-17 16:31] LABS: Alanine Aminotransferase 9 U/L (0-40); Albumin Level 2.9 g/dL (3.5-5.0); Alkaline Phosphatase 80 U/L (39-117); Anion Gap 14 (12-20); Aspartate Amino Transferase 16 U/L (5-37); Bilirubin Direct < 0.2 mg/dL (0.0-0.5); Bilirubin Total 0.2 mg/dL (0.0-1.0); Blood Urea Nitrogen 16 mg/dL (9-16); C Reactive Protein 3.66 mg/dL (< or = 0.50); Calcium 9.1 mg/dL (8.4-10.2); Carbon Dioxide 27 mmol/L (22-29); Chloride 97 mmol/L (96-108); Estimated Glomerular Filt Rate > 60; Glucose Random 150 mg/dL (60-115); Potassium 4.3 mmol/L (3.3-5.1); Sodium 134 mmol/L (135-145); Total Protein 8.6 g/dL (6.5-8.0)
[2021-05-17 17:03] LABS: Erythrocyte Sedimentation Rate 109 MM/HR (0-15)
== END 2021-05-17 00:01 ==
LOC: CF
PROVIDERS: Visit Provider Internal Medicine
DX: E11.621 Type 2 diabetes mellitus with foot ulcer (principal); I48.0 Paroxysmal atrial fibrillation
CPT/HCPCS: 36415; 80053; 82248; 85025; 85652; 86140

== ENCOUNTER → 2021-05-22 10:44 | Outpatient (BNVA) | payer OTHER, SELFPAY | PROVIDERS: PCP Internal Medicine; Referring Provider Internal Medicine; Visit Provider Surgery | DX: E11.628 Type 2 diabetes mellitus with other skin complications (principal); S91.104D Unspecified open wound of right lesser toe(s) without damage to nail, subsequent encounter; E11.52 Type 2 diabetes mellitus with diabetic peripheral angiopathy with gangrene; I96 Gangrene, not elsewhere classified; E11.65 Type 2 diabetes mellitus with hyperglycemia; F17.210 Nicotine dependence, cigarettes, uncomplicated; Z79.2 Long term (current) use of antibiotics | CPT/HCPCS: 99212 ==

== ENCOUNTER 2021-05-24 13:38 | Outpatient (REF) | payer OTHER, SELFPAY ==
[2021-05-24 13:42] LABS: MANUAL DIFF FLAG NO
[2021-05-24 13:49] LABS: Basophils Absolute Auto 0.1 X10*3/uL (0.0-0.2); Basophils Percent Auto 0.8 % (0-2); Eosinophils Absolute Auto 0.4 X10*3/uL (0.0-0.4); Eosinophils Percent Auto 3.4 % (0-4); Hemoglobin 9.5 g/dl (14.0-18.0); Imm Gran Abs Auto 0.05 X10*3/uL (0.00-0.03); Imm Gran Pct Auto 0.5 % (0.0-0.4); Lymphocytes Absolute Auto 2.3 X10*3/uL (1.2-4.9); Lymphocytes Percent Auto 22.2 % (20-40); Mean Corpuscular HGB Conc 32.8 g/dl (31.0-36.0); Mean Corpuscular Hemoglobin 28.1 pg (27.0-33.0); Mean Corpuscular Volume 85.8 fL (80.0-98.0); Mean Platelet Volume 9.9 fL (9.4-12.4); Monocytes Absolute Auto 0.6 X10*3/uL (0.1-1.2); Monocytes Percent Auto 5.6 % (2-11); Neutrophils Absolute Auto 6.9 x10*3/uL (2.0-8.3); Neutrophils Percent Auto 67.5 % (45-73); Platelet Count 427 X10*3/uL (160-400); Red Blood Count 3.38 X10*6/uL (4.60-5.80); Red Cell Distribution Width 13.7 % (11.0-16.0); White Blood Count 10.2 X10*3/uL (4.8-10.8)
[2021-05-24 14:05] LABS: Alanine Aminotransferase 10 U/L (0-40); Albumin Level 2.8 g/dL (3.5-5.0); Alkaline Phosphatase 76 U/L (39-117); Anion Gap 13 (12-20); Aspartate Amino Transferase 18 U/L (5-37); Bilirubin Total 0.2 mg/dL (0.0-1.0); Blood Urea Nitrogen 16 mg/dL (9-16); C Reactive Protein 3.44 mg/dL (< or = 0.50); Calcium 8.9 mg/dL (8.4-10.2); Carbon Dioxide 28 mmol/L (22-29); Chloride 99 mmol/L (96-108); Estimated Glomerular Filt Rate > 60; Glucose Random 268 mg/dL (60-115); Potassium 4.4 mmol/L (3.3-5.1); Sodium 136 mmol/L (135-145)
[2021-05-24 14:30] LABS: Erythrocyte Sedimentation Rate 109 MM/HR (0-15)
== END 2021-05-24 13:39 | disposition home or self-care (01) ==
LOC: HO.HVNA 13:38
PROVIDERS: Visit Provider Internal Medicine
DX: E11.621 Type 2 diabetes mellitus with foot ulcer (principal)
CPT/HCPCS: 36415; 80053; 85025; 85652; 86140

== ENCOUNTER 2021-05-26 07:52 | Outpatient (REF) | payer OTHER, SELFPAY ==
[2021-05-26 08:07] LABS: MANUAL DIFF FLAG NO
[2021-05-26 08:17] LABS: Basophils Absolute Auto 0.1 X10*3/uL (0.0-0.2); Basophils Percent Auto 0.9 % (0-2); Eosinophils Absolute Auto 0.6 X10*3/uL (0.0-0.4); Eosinophils Percent Auto 4.3 % (0-4); Hematocrit 33.1 % (42.0-52.0); Hemoglobin 10.6 g/dl (14.0-18.0); Imm Gran Abs Auto 0.05 X10*3/uL (0.00-0.03); Imm Gran Pct Auto 0.4 % (0.0-0.4); Lymphocytes Absolute Auto 2.5 X10*3/uL (1.2-4.9); Mean Corpuscular Hemoglobin 27.9 pg (27.0-33.0); Mean Corpuscular Volume 87.1 fL (80.0-98.0); Mean Platelet Volume 9.3 fL (9.4-12.4); Monocytes Absolute Auto 0.7 X10*3/uL (0.1-1.2); Neutrophils Absolute Auto 9.1 x10*3/uL (2.0-8.3); Neutrophils Percent Auto 70.4 % (45-73); Platelet Count 472 X10*3/uL (160-400); Red Cell Distribution Width 13.8 % (11.0-16.0); White Blood Count 12.9 X10*3/uL (4.8-10.8)
[2021-05-26 08:26] LABS: Estimated Average Glucose 223 mg/dL; Hemoglobin A1c % 9.4 %
[2021-05-26 08:42] LABS: Alanine Aminotransferase 11 U/L (0-40); Albumin Level 3.1 g/dL (3.5-5.0); Alkaline Phosphatase 79 U/L (39-117); Aspartate Amino Transferase 18 U/L (5-37); Bilirubin Direct < 0.2 mg/dL (0.0-0.5); Bilirubin Total 0.4 mg/dL (0.0-1.0); C Reactive Protein 3.13 mg/dL (< or = 0.50); Total Protein 8.6 g/dL (6.5-8.0)
[2021-05-26 09:02] LABS: Erythrocyte Sedimentation Rate 102 MM/HR (0-15)
[2021-05-26 09:05] LABS: Prostate Specific Antigen Scr 1.24 ng/mL (<0.05-4.0)
[2021-05-26 09:06] LABS: TSH reflex Free T4 1.45 uIU/mL (0.32-4.0); Vitamin D 25-OH Total 20.9 ng/mL (>30)
[2021-05-26 09:07] LABS: Alanine Aminotransferase 12 U/L (0-40); Albumin Level 3.1 g/dL (3.5-5.0); Alkaline Phosphatase 81 U/L (39-117); Anion Gap 13 (12-20); Aspartate Amino Transferase 18 U/L (5-37); Bilirubin Total 0.4 mg/dL (0.0-1.0); Blood Urea Nitrogen 14 mg/dL (9-16); Calcium 9.2 mg/dL (8.4-10.2); Carbon Dioxide 29 mmol/L (22-29); Chloride 100 mmol/L (96-108); Cholesterol 204 mg/dL; Estimated Glomerular Filt Rate > 60; Glucose Fasting 102 mg/dL (60-99); HDL Cholesterol 28 mg/dL; Iron 47 mcg/dL (45-160); LDL Cholesterol Calculated 134 mg/dl; Percent Iron Saturation 22 % (15-50); Potassium 3.8 mmol/L (3.3-5.1); Sodium 138 mmol/L (135-145); Total Iron Binding Capacity 216 mcg/dL (228-428); Total Protein 8.7 g/dL (6.5-8.0); Triglycerides 212 mg/dL; Unsaturated Iron Binding 169 ug/dL
[2021-05-26 09:18] LABS: Folate 6.9 ng/mL (> or = 4.0); Vitamin B12 520 pg/mL (200-900)
[2021-05-27 03:50] LABS: C Peptide 2.31 ng/mL (0.80-3.85)
[2021-05-30 19:00] LABS: Glutamic acid decarboxylase Ab <5 IU/mL (<5)
== END 2021-05-26 07:53 | disposition home or self-care (01) ==
LOC: HO.LAB 07:52
PROVIDERS: Internal Medicine; Absent Provider Nurse Practitioner Acute Care; PCP Internal Medicine; Visit Provider Internal Medicine
DX: Z12.5 Encounter for screening for malignant neoplasm of prostate (principal); N17.9 Acute kidney failure, unspecified; E11.65 Type 2 diabetes mellitus with hyperglycemia; E55.9 Vitamin D deficiency, unspecified; I48.0 Paroxysmal atrial fibrillation; D64.9 Anemia, unspecified; E78.00 Pure hypercholesterolemia, unspecified; M86.9 Osteomyelitis, unspecified
CPT/HCPCS: 36415; 80053; 80061; 80076; 82248; 82306; 82607; 82746; 83036; 83540; 84153; 84443; 84681; 85025; 85652; 86140; 86341

== ENCOUNTER 2021-05-31 15:32 | Outpatient (REF) | payer OTHER, SELFPAY ==
[2021-05-31 15:37] LABS: MANUAL DIFF FLAG NO
[2021-05-31 15:55] LABS: Basophils Absolute Auto 0.1 X10*3/uL (0.0-0.2); Basophils Percent Auto 0.7 % (0-2); Eosinophils Absolute Auto 0.5 X10*3/uL (0.0-0.4); Eosinophils Percent Auto 4.8 % (0-4); Hematocrit 30.1 % (42.0-52.0); Hemoglobin 9.8 g/dl (14.0-18.0); Imm Gran Abs Auto 0.03 X10*3/uL (0.00-0.03); Imm Gran Pct Auto 0.3 % (0.0-0.4); Lymphocytes Absolute Auto 2.6 X10*3/uL (1.2-4.9); Lymphocytes Percent Auto 25.5 % (20-40); Mean Corpuscular HGB Conc 32.6 g/dl (31.0-36.0); Mean Corpuscular Hemoglobin 27.6 pg (27.0-33.0); Mean Corpuscular Volume 84.8 fL (80.0-98.0); Mean Platelet Volume 9.8 fL (9.4-12.4); Monocytes Absolute Auto 0.6 X10*3/uL (0.1-1.2); Monocytes Percent Auto 5.6 % (2-11); Neutrophils Absolute Auto 6.4 x10*3/uL (2.0-8.3); Neutrophils Percent Auto 63.1 % (45-73); Platelet Count 368 X10*3/uL (160-400); Red Blood Count 3.55 X10*6/uL (4.60-5.80); White Blood Count 10.1 X10*3/uL (4.8-10.8)
[2021-05-31 16:25] LABS: Alanine Aminotransferase 10 U/L (0-40); Alkaline Phosphatase 81 U/L (39-117); Anion Gap 11 (12-20); Aspartate Amino Transferase 18 U/L (5-37); Bilirubin Total 0.2 mg/dL (0.0-1.0); Blood Urea Nitrogen 13 mg/dL (9-16); C Reactive Protein 2.13 mg/dL (< or = 0.50); Calcium 8.8 mg/dL (8.4-10.2); Carbon Dioxide 29 mmol/L (22-29); Chloride 100 mmol/L (96-108); Estimated Glomerular Filt Rate > 60; Glucose Random 91 mg/dL (60-115); Potassium 4.3 mmol/L (3.3-5.1); Sodium 136 mmol/L (135-145); Total Protein 8.1 g/dL (6.5-8.0)
[2021-05-31 16:39] LABS: Erythrocyte Sedimentation Rate 107 MM/HR (0-15)
== END 2021-05-31 15:33 | disposition home or self-care (01) ==
LOC: HO.HVNA 15:32
PROVIDERS: Visit Provider Internal Medicine
DX: E11.621 Type 2 diabetes mellitus with foot ulcer (principal); L97.509 Non-pressure chronic ulcer of other part of unspecified foot with unspecified severity
CPT/HCPCS: 36415; 80053; 85025; 85652; 86140

== ENCOUNTER 2021-06-07 14:58 | Outpatient (REF) | payer OTHER, SELFPAY ==
[2021-06-07 15:06] LABS: MANUAL DIFF FLAG NO
[2021-06-07 15:11] LABS: Basophils Absolute Auto 0.1 X10*3/uL (0.0-0.2); Basophils Percent Auto 0.7 % (0-2); Eosinophils Absolute Auto 0.4 X10*3/uL (0.0-0.4); Eosinophils Percent Auto 2.9 % (0-4); Hematocrit 30.1 % (42.0-52.0); Hemoglobin 9.9 g/dl (14.0-18.0); Imm Gran Abs Auto 0.05 X10*3/uL (0.00-0.03); Imm Gran Pct Auto 0.4 % (0.0-0.4); Lymphocytes Absolute Auto 2.1 X10*3/uL (1.2-4.9); Lymphocytes Percent Auto 17.9 % (20-40); Mean Corpuscular HGB Conc 32.9 g/dl (31.0-36.0); Mean Corpuscular Hemoglobin 27.9 pg (27.0-33.0); Mean Corpuscular Volume 84.8 fL (80.0-98.0); Mean Platelet Volume 9.7 fL (9.4-12.4); Monocytes Absolute Auto 0.7 X10*3/uL (0.1-1.2); Monocytes Percent Auto 5.5 % (2-11); Neutrophils Absolute Auto 8.7 x10*3/uL (2.0-8.3); Neutrophils Percent Auto 72.6 % (45-73); Platelet Count 387 X10*3/uL (160-400); Red Blood Count 3.55 X10*6/uL (4.60-5.80); Red Cell Distribution Width 14.4 % (11.0-16.0); White Blood Count 11.9 X10*3/uL (4.8-10.8)
[2021-06-07 15:45] LABS: Alanine Aminotransferase 11 U/L (0-40); Alkaline Phosphatase 84 U/L (39-117); Anion Gap 13 (12-20); Aspartate Amino Transferase 16 U/L (5-37); Bilirubin Total < 0.2 mg/dL (0.0-1.0); Blood Urea Nitrogen 12 mg/dL (9-16); C Reactive Protein 2.33 mg/dL (< or = 0.50); Calcium 9.2 mg/dL (8.4-10.2); Carbon Dioxide 28 mmol/L (22-29); Chloride 100 mmol/L (96-108); Erythrocyte Sedimentation Rate 108 MM/HR (0-15); Estimated Glomerular Filt Rate > 60; Glucose Random 125 mg/dL (60-115); Potassium 3.8 mmol/L (3.3-5.1); Sodium 137 mmol/L (135-145)
== END 2021-06-07 14:59 | disposition home or self-care (01) ==
LOC: HO.HVNA 14:58
PROVIDERS: Visit Provider Internal Medicine
DX: E11.621 Type 2 diabetes mellitus with foot ulcer (principal)
CPT/HCPCS: 36415; 80053; 85025; 85652; 86140

== ENCOUNTER → 2021-06-12 15:03 | Outpatient (BNVA) | payer OTHER, SELFPAY | PROVIDERS: Visit Provider Internal Medicine | DX: Z09 Encounter for follow-up examination after completed treatment for conditions other than malignant neoplasm (principal); M86.9 Osteomyelitis, unspecified; E11.628 Type 2 diabetes mellitus with other skin complications; L08.9 Local infection of the skin and subcutaneous tissue, unspecified | CPT/HCPCS: 99212 ==

== ENCOUNTER → 2021-06-13 13:54 | Outpatient (BNVA) | payer OTHER, SELFPAY | PROVIDERS: PCP Internal Medicine; Visit Provider Internal Medicine Endocrinology, Diabetes & Metabolism | DX: E11.65 Type 2 diabetes mellitus with hyperglycemia (principal); Z79.4 Long term (current) use of insulin | CPT/HCPCS: 82947; 99212 ==

== ENCOUNTER 2023-08-25 09:26 | Inpatient (IN) | payer OTHER, SELFPAY ==
[2023-08-25] VITALS (7 sets, daily range): BP systolic 128–178; BP diastolic 80–99; PULSE 92–130; RESP 16–20; TEMP 36.8–37.4; O2SAT 95–99; BMI 29.3
--- NOTE | ~2023-08-25 | XR_ITS ---
EXAMINATION: XR CHEST CLINICAL INFORMATION: Small distal esophageal lymph nodes. COMPARISON: CT abdomen and pelvis dated 09/12/2023. TECHNIQUE: 2 frontal views of the chest were obtained. FINDINGS: The heart, great vessels, pulmonary vasculature and mediastinum are normal. The lungs are clear, without infiltrate, effusion or pneumothorax. There is no nodule, mass or thoracic lymphadenopathy noted. No acute osseous abnormality is seen. There is multi-level thoracic spondylosis. XR/XR chest 1V IMPRESSION: No active cardiopulmonary disease.
--- NOTE | ~2023-08-25 | CT_ITS ---
EXAMINATION: CT ABDOMEN AND PELVIS WITHOUT CONTRAST CLINICAL INFORMATION: Vomiting COMPARISON: None available. TECHNIQUE: Multidetector volumetric imaging was performed from the superior aspect of the liver through the pubic symphysis. Sagittal and coronal reformatted images were obtained on the technologist's workstation. This CT examination was performed using dose optimization techniques as appropriate, variously including the following: *Automated exposure control *Adjustment of mA and/or kV according to patient size (this includes techniques or standardized protocols for targeted exams where dose is matched to indication/reason for exam; i.e. extremities or head) *Use of iterative reconstruction technique DLP: 697 mGy-cm FINDINGS: LUNG BASES: The visualized lung bases are clear. There is wall thickening of the distal thoracic esophagus. There are small adjacent paraesophageal posterior mediastinal lymph nodes and fluid. LIVER, GALLBLADDER, AND BILIARY TREE: The liver is normal in size, shape, and attenuation. No focal hepatic lesion or biliary ductal dilatation is present. The gallbladder is unremarkable with no evidence of radiopaque gallstones, gallbladder wall thickening, or obvious pericholecystic inflammatory changes. PANCREAS: Unremarkable. SPLEEN: Unremarkable. ADRENAL GLANDS: Unremarkable. KIDNEYS AND URETERS: The kidneys are normal in size, shape, and attenuation. No hydronephrosis, hydroureter, or calculi seen. No perinephric stranding. BLADDER: Unremarkable. GASTROINTESTINAL TRACT: The small and large bowel are unremarkable. The appendix is unremarkable. ABDOMINAL WALL: No significant hernia is appreciated. LYMPH NODES: Normal. VASCULAR: Atherosclerotic disease PELVIC VISCERA: Unremarkable. OSSEOUS STRUCTURES: Degenerative changes of the spine and hip joints. Spondylolysis, spondylolisthesis and degenerative disc disease at L5-S1. CT/CT abdomen pelvis wo IV con IMPRESSION: Wall thickening of the distal thoracic esophagus. Small posterior mediastinal lymph nodes and fluid adjacent to the distal thoracic esophagus. Fleischner guidelines were followed.
--- NOTE | 2023-08-25 10:41 | ECG_ITS ---
Test Reason : TACHYCARDIA Blood Pressure : / mmHG Vent. Rate : 114 BPM Atrial Rate : 114 BPM P-R Int : 146 ms QRS Dur : 082 ms QT Int : 346 ms P-R-T Axes : 040 046 044 degrees QTc Int : 476 ms Sinus tachycardia Nonspecific ST abnormality Abnormal ECG When compared with ECG of 17-APR-2021 12:29, Sinus rhythm has replaced Atrial fibrillation Nonspecific T wave abnormality has replaced inverted T waves in Inferior leads Nonspecific T wave abnormality no longer evident in Anterolateral leads Referred By: Generic ED Physician Electronically Signed By:JORDY BELL MD
--- NOTE | 2023-08-25 10:54 | PC.NURSE ---
pt is alert and oriented, skin pwd, respirations even and unlabored, pt reports abd pain for about three weeks that comes and goes, denies pain at this time, abd soft and non-tender bowel sounds in all 4 quadrants, pt also has been vomiting brown color emesis for the last 3 weeks denies diarrhea, sinus tach on the monitor will range from 120-110's.
[2023-08-25 10:55] LABS: Basophils Absolute Auto 0.1 X10*3/uL (0.0-0.2); Basophils Percent Auto 0.4 % (0-2); Hematocrit 46.1 % (42.0-52.0); Hemoglobin 15.6 g/dl (14.0-18.0); Imm Gran Pct Auto 0.5 % (0.0-0.4); Lymphocytes Absolute Auto 0.7 X10*3/uL (1.2-4.9); Lymphocytes Percent Auto 3.6 % (20-40); MANUAL DIFF FLAG SCAN; Mean Corpuscular HGB Conc 33.8 g/dl (31.0-36.0); Mean Corpuscular Volume 82.6 fL (80.0-98.0); Mean Platelet Volume 9.8 fL (9.4-12.4); Monocytes Absolute Auto 0.8 X10*3/uL (0.1-1.2); Monocytes Percent Auto 4.1 % (2-11); Neutrophils Absolute Auto 18.1 x10*3/uL (2.0-8.3); Neutrophils Percent Auto 91.4 % (45-73); Platelet Count 435 X10*3/uL (160-400); Red Blood Count 5.58 X10*6/uL (4.60-5.80); Red Cell Distribution Width 13.7 % (11.0-16.0); SCAN SMEAR FLAG 1; White Blood Count 19.8 X10*3/uL (4.8-10.8)
[2023-08-25 11:11] LABS: SLIDE REVIEW VERIFIED
[2023-08-25 11:23] LABS: Alanine Aminotransferase 9 U/L (0-40); Albumin Level 3.2 g/dL (3.5-5.0); Alkaline Phosphatase 120 U/L (39-117); Anion Gap 24 (12-20); Aspartate Amino Transferase 17 U/L (5-37); Bilirubin Direct 0.2 mg/dL (0.0-0.5); Bilirubin Total 0.3 mg/dL (0.0-1.0); Blood Urea Nitrogen 39 mg/dL (9-16); Calcium 9.8 mg/dL (8.4-10.2); Carbon Dioxide 22 mmol/L (22-29); Chloride 98 mmol/L (96-108); Creatinine Clr Calc Pharmacy 41.2; Estimated Glomerular Filt Rate 26; Glucose Random 348 mg/dL (60-115); Lipase 13 U/L (8-78); Potassium 4.6 mmol/L (3.3-5.1); Sodium 139 mmol/L (135-145); Total Protein 7.8 g/dL (6.5-8.0)
--- NOTE | 2023-08-25 12:09 | ED.GENADULT ---
HPI - General Adult General Chief complaint: Abdominal Pain Stated complaint: VOMITING X2 WEEKS PER EMS Time Seen by Provider: 08/25/23 11:54 Source: patient, family (Mother) and EMS Mode of arrival: EMS Limitations: no limitations History of Present Illness ED Provider: DR. Osborne HPI narrative: 58-year-old male came in by ambulance complaining of 2-3 weeks of intermittent vomiting with mid abdominal pain, no fever, no chills, no black stool or blood in the stool or vomitus. Patient declined history of intra-abdominal surgery. No sick contacts, no recent travel, no recent use of antibiotic. No reported loss of weight. Related Data Previous Rx's ?Medication ?Instructions ?Recorded ertapenem 1 gram solution for 1 g IM DAILY #35 ea 05/05/21 injection insulin glargine 100 unit/mL (3 20 unit (0.2 mL) subcut BEDTIME #0 05/05/21 mL) subcutaneous pen mL insulin lispro 100 unit/mL See Protocol subcut QIDACHS #15 mL 05/28/21 subcutaneous pen (Humalog KwikPen (U-100) Insulin) atorvastatin 10 mg tablet (Lipitor) 10 mg PO BEDTIME #30 tabs 06/13/21 doxycycline hyclate 100 mg tablet 100 mg PO BID 30 days #60 tabs 06/14/21 rivaroxaban 20 mg tablet (Xarelto) 20 mg PO DAILY@1700 30 days #30 09/21/21 tabs dulaglutide 0.75 mg/0.5 mL 1 mg (0.6667 mL) subcut QWEEK #2 mL 11/28/21 subcutaneous [facility] omeprazole 20 mg capsule,delayed 20 mg PO DAILY 30 days #30 caps 05/15/22 release blood sugar diagnostic (FreeStyle #100 ea 07/16/22 Lite Strips) metoprolol succinate 100 mg 100 mg PO DAILY 30 days #10 tabs 10/30/22 tablet,extended release 24 hr amlodipine 10 mg tablet 10 mg PO DAILY 30 days #30 tabs 07/17/23 flash glucose sensor (FreeStyle #1 ea 07/17/23 Dedra 14 Day Sensor kit) gabapentin 100 mg capsule 100 mg PO BID 30 days #60 caps 07/17/23 metformin 1,000 mg tablet 1,000 mg PO BID #60 tabs 07/17/23 Allergies Allergy/AdvReac Type Severity Reaction Status Date / Time No Known Allergies Allergy Verified 08/25/23 09:41 [No Known Allergies*] Review of Systems Review of Systems: all other systems are reviewed and are negative Constitutional: Reports as per HPI and Reports no additional constitutional complaints Eyes: Reports as per HPI and Reports no additional eye complaints Reports system reviewed and no additional complaints, except as documented Cardiovascular: Reports as per HPI and Reports no additional cardiovascular complaints Respiratory: Reports as per HPI and Reports no additional respiratory complaints Gastrointestinal: Reports as per HPI and Reports no additional gastrointestinal complaints Genitourinary: Reports no additional female genitourinary complaints Musculoskeletal: Reports no additional musculoskeletal complaints Skin/Breast: Reports system reviewed and no additional complaints, except as docu Psychiatric: Reports no additional psychiatric complaints Endocrine: Reports no additional endocrine complaints Hematologic/Lymphatic: Reports no additional hematologic/lymphatic complaints Allergic/Immunologic: Reports no additional allergic/immunologic complaints Reports system reviewed and no additional complaints, except as documented and Reports Abnormal speech present [facility] Past Medical History Medical History Obesity (BMI 30-39.9) Benign essential hypertension Diabetes mellitus Type II diabetes mellitus Uncontrolled diabetes mellitus Paroxysmal atrial fibrillation Diabetic foot infection COVID-19 Surgical History No pertinent past surgical history Family History Family History Mother No problems noted. Father No problems noted. Social History Social History Household Members: Family Housing: House Do you presently have visiting nurse or other home services: No Unable to assess alcohol history related to: Refusing to respond Alcohol intake: former Patient Tobacco Use Status: Current everyday Tobacco user Tobacco use type: Cigarette Cigarettes Per Day: 3 Smoked in Last 30 Days: Yes Second Hand Smoke Exposure: Yes Use of substances other than those prescribed or required for medical reasons: No Advance Directives: No Advance Directives Information Provided: Yes Do you have a plan to hurt others: No Plan service: No Current occupational status: unemployed Cognitive needs: No Hearing needs: No Vision needs: No Physical Exam ED Vital Signs: Vital Signs - 24 hr 08/25/23 09:39 08/25/23 11:35 08/25/23 11:43 Temperature 98.2 F 98.7 F 99.4 F Pulse Rate 123 H 116 H Respiratory Rate 20 18 Blood Pressure 133/81 154/82 H Pulse Oximetry 99 95 Oxygen Delivery Method Room Air Room Air 08/25/23 12:56 Temperature Pulse Rate 115 H Respiratory Rate 20 Blood Pressure 161/94 H Pulse Oximetry 96 Oxygen Delivery Method Room Air BMI result Body Mass Index 29.3 Vital signs have been reviewed and appear to be correct. Blood pressure elevated. Heart rate normal. Respiratory rate normal. Temperature normal. Oxygen saturation normal. Appearance: Alert. Oriented X3. No acute distress. Head: Normal external exam. Normocephalic. Atraumatic. No Bartholomew signs noted. No raccoon eyes noted Eyes: PERRLA. EOMI. Conjunctiva and sclera normal. Eyelids normal. ENT: TM's Normal. Pharynx normal. Uvula midline. Moist mucous membranes. No trismus noted. No drooling noted. No muffled voice noted. Neck: Normal inspection. Neck supple. FROM. No adenopathy. Thyroid Normal. No meningeal signs. No neck mass noted. CVS: Normal heart rate and rhythm. Heart sound normal. No murmurs noted. Pulses normal throughout. Respiratory: No respiratory distress. Painless inspiration. Breath sounds normal. No wheezes/rales/rhonchi noted. Chest nontender. No accessory muscle usage noted or decreased air movement noted. Abdomen: Soft and nontender. Bowel sounds normal in all 4 quadrants. No distention noted. No organomegaly noted. No visible injury noted. Back: No CVA tenderness. Full range of motion noted. Skin: Skin warm and dry. Normal skin color. Normal skin turgor. No rashes/lesions/lacerations noted. Extremities: No lower extremity edema. Extremities exhibit normal range of motion. Extremities nontender. Neuro: Oriented X 3. Cranial nerve exam: II-XII are grossly intact No motor deficit. No sensory deficit. Reflexes normal. Course Reevaluation(s) Reevaluation #1: 58-year-old male with abdominal pain, a CT is consistent with esophagitis, patient received Pepcid/ Protonix. IV fluid hydration, serial renal function tests, hospitalized. Time: 15:18 Medications Administered Discontinued Medications Generic Name Dose Route Start Last Admin Trade Name Freq PRN Reason Stop Dose Admin Al Hydroxide/Mg Hydroxide 30 ml 08/25/23 12:08 08/25/23 12:35 Magnesium Hydrox/Alum Hydrox 30 Ml Oral.Susp PO 08/25/23 12:09 30 ml ONCE ONE Administration Famotidine 20 mg 08/25/23 12:08 08/25/23 12:40 Famotidine/Pf 20 Mg/2 Ml Vial IVPUSH 08/25/23 12:09 20 mg ONCE ONE Administration Ceftriaxone Sodium 1 gm/ 50 mls @ 100 mls/hr 08/25/23 12:10 08/25/23 13:30 Sodium Chloride IV 08/25/23 12:39 Infused ONCE ONE Infusion Lidocaine HCl 10 ml 08/25/23 12:28 08/25/23 12:36 Lidocaine Hcl 2 % Urojet 10 Ml Jel.Pf.Ty TOPICAL 08/25/23 12:29 10 ml ONCE ONE Administration Ondansetron HCl 4 mg 08/25/23 12:08 08/25/23 12:35 Ondansetron Hcl 4 Mg/2 Ml Vial IVPUSH 08/25/23 12:09 4 mg ONCE ONE Administration Medical Decision Making Differential Diagnosis Differential Diagnoses: The differential diagnosis associated with the presentation includes ( Small-bowel obstruction, colitis, esophagitis, appendicitis,gastritis, acute diverticulitis, [place], electrolyte derangement, severe anemia.) Admission/Observation Consideration of admission/observation: Escalation of care including admission/observation considered Lab Data MDM Lab Attestation statement: I reviewed the patient's lab results. 08/25/23 10:47 08/25/23 10:47 Labs: Lab Results 08/25/23 08/25/23 08/25/23 Range/Units 10:47 12:42 12:55 WBC 19.8 H (4.8-10.8) X10*3/uL RBC 5.58 D (4.60-5.80) X10*6/uL Hgb 15.6 D (14.0-18.0) g/dl Hct 46.1 D (42.0-52.0) % MCV 82.6 (80.0-98.0) fL MCH 28.0 (27.0-33.0) pg MCHC 33.8 (31.0-36.0) g/dl RDW 13.7 (11.0-16.0) % Plt Count 435 H (160-400) X10*3/uL MPV 9.8 (9.4-12.4) fL Immature Gran % (Auto) 0.5 H (0.0-0.4) % Neut % (Auto) 91.4 H (45-73) % Lymph % (Auto) 3.6 L (20-40) % [place] % (Auto) 4.1 (2-11) % Eos % (Auto) 0.0 (0-4) % Baso % (Auto) 0.4 (0-2) % Lymph # (Auto) 0.7 L (1.2-4.9) X10*3/uL [place] # (Auto) 0.8 (0.1-1.2) X10*3/uL Eos # (Auto) 0.0 (0.0-0.4) X10*3/uL Baso # (Auto) 0.1 (0.0-0.2) X10*3/uL Abs Immat Gran (auto) 0.10 H (0.00-0.03) X10*3/uL Absolute Neuts (auto) 18.1 H (2.0-8.3) x10*3/uL Absolute Nucleated RBC 0.000 (0.0-0.012) X10*3/uL Nucleated RBC % (auto) 0.0 (0.0-0.2) /100WBC Smear Tech's Comments VERIFIED Sodium 139 (135-145) mmol/L Potassium 4.6 (3.3-5.1) mmol/L Chloride 98 (96-108) mmol/L Carbon Dioxide 22 (22-29) mmol/L Anion Gap 24 H (12-20) BUN 39 H (9-16) mg/dL Creatinine 2.57 H (0.5-1.4) mg/dL Estim Creat Clear Calc 41.2 Estimated GFR 26 Random Glucose 348 H (60-115) mg/dL Lactic Acid 1.4 (0.5-2.0) mmol/L Calcium 9.8 D (8.4-10.2) mg/dL Total Bilirubin 0.3 (0.0-1.0) mg/dL Direct Bilirubin 0.2 (0.0-0.5) mg/dL AST 17 (5-37) U/L ALT 9 (0-40) U/L Alkaline Phosphatase 120 H (39-117) U/L Total Protein 7.8 (6.5-8.0) g/dL Albumin 3.2 L (3.5-5.0) g/dL Lipase 13 (8-78) U/L Urine Color Yellow Urine Appearance Cloudy Urine pH 6.0 (5.0-9.0) Ur Specific [place] 1.025 (1.005-1.025) Urine Protein >=1000 (4+) H (Neg-Trace) mg/dL Urine Glucose (UA) >=1000 H (Negative) mg/dL Urine Ketones Trace (Negative) mg/dL Urine Blood Moderate (2+) H (Negative) Urine Nitrite Negative (Negative) Ur Leukocyte Esterase Negative (Negative) Urine RBC >20 H (0-2) /HPF Urine WBC 0-5 (0-5) /HPF Ur Squamous Epith Cells 0-2 (0-2) /HPF Urine Bacteria None Seen (None Seen) Hyaline Casts 0-2 (0-2) /LPF Independent Interpretation I performed an independent interpretation of an: CT Scan ( abdomen pelvis:Wall thickening of the distal thoracic esophagus. Small posterior mediastinal lymph nodes and fluid adjacent to the distal thoracic esophagus. ) Radiology Impression Discussion of test interpretation with radiology: I have reviewed the radiologist's reading. Discharge Plan Discharge Clinical Impression: Acute kidney injury, Dehydration, Esophagitis, Intractable vomiting Patient Disposition: Admitted As Inpatient Print Language: Irish
[2023-08-25] MEDS: Magnesium Hydrox/Alum Hydrox 30 ML ORAL.SUSP PO (12:35)
[2023-08-25] MEDS: ondansetron HCL 4 MG/2 ML VIAL IVPUSH (12:35)
[2023-08-25] MEDS: Lidocaine HCl 2 % Urojet 10 ML JEL.PF.APP TOPICAL (12:36)
[2023-08-25] MEDS: Famotidine/PF 20 MG/2 ML VIAL IVPUSH (12:40)
[2023-08-25] MEDS: cefTRIAXone sodium 1 GM in 0.9 % Sodium Chloride 50 ML IV (12:56)
[2023-08-25 13:06] LABS: Appearance Urine Cloudy; Color Urine Yellow; Glucose Urine UA >=1000 mg/dL (Negative); Leukocyte Esterase Urine Negative (Negative); Nitrite Urine Negative (Negative); Specific Gravity - Urine 1.025 (1.005-1.025); UMIC TRIGGER UACC YES; Urine Blood Moderate (2+) (Negative); Urine Ketones Trace mg/dL (Negative); Urine Protein >=1000 (4+) mg/dL (Neg-Trace)
[2023-08-25 13:20] LABS: Lactic Acid 1.4 mmol/L (0.5-2.0)
[2023-08-25 13:22] LABS: Bacteria Urine None Seen (None Seen); Hyaline Casts Urine 0-2 /LPF (0-2); RBC Urine >20 /HPF (0-2); Squamous Epithelial Cell Urine 0-2 /HPF (0-2); WBC Urine 0-5 /HPF (0-5)
--- NOTE | 2023-08-25 16:37 | PM.IMHP ---
History of Present Illness Date of Service: 08/25/23 Attending physician on admission: Miki Simental Chief Complaint: Intermittent N/V Pt is a 58-year-old male with a PMH significant for?paroxysmal AFib no longer on anticoagulation, HTN, HLD, insulin-dependent type 2 diabetes, peripheral neuropathy, and hx of osteomyelitis secondary to chronic diabetic foot ulcers who presents to the ED with?intermittent nausea and vomiting for the past 3 weeks. Patient is a rather vague historian, but states he often has one or two vomiting episodes on most days that primarily occur in the mornings. Has not been eating or drinking much during this time, and has had reduced urine output. Otherwise patient has no acute medical complaints. Denies abdominal pain or diarrhea. No difficulty swallowing or breathing. Denies heartburn. No chest pain/pressure, palpitations. Denies shortness of breath, difficulty breathing, or cough. No sick contacts. Denies foot pain or purulent drainage from previous chronic wounds. Last saw [facility] for diabetic foot ulcers 2 years ago. In the ED pt was tachycardic up to 123 and hypertensive up to 161/94. Labs were significant for leukocytosis of 19.8, BUN 39, creatinine 2.57, random glucose 348, and albumin 3.2. No significant electrolyte abnormalities. Lactic acid WNL at 1.4. CT?of abdomen and pelvis found wall thickening distal thoracic esophagus, with small posterior mediastinal lymph nodes and fluid adjacent to the distal thoracic esophagus. EKG demonstrated sinus tachycardia of 114 without evidence of significant ST elevations or depressions. Pt was treated with ondansetron, Maalox, lidocaine, Protonix, ceftriaxone, IVF, and insulin 10 units. Pt will be admitted to the hospital for treatment and further evaluation of esophagitis and IRAIDA in the setting of intractable nausea and vomiting and reduced p.o. intake. Review of Systems Review of Systems: Intermittent nausea and vomiting x3 weeks Reduced p.o. intake of solids and fluids x3 weeks Denies abdominal pain No fever, chills Denies chest pain/pressure, or palpitations No shortness of breath or difficulty breathing [facility] [place] Medical History Obesity (BMI 30-39.9) Benign essential hypertension Diabetes mellitus Type II diabetes mellitus Uncontrolled diabetes mellitus Paroxysmal atrial fibrillation Diabetic foot infection COVID-19 Family History Mother No problems noted. Father No problems noted. Surgical History No pertinent past surgical history Social History Household Members: None Housing: Apartment Do you presently have visiting nurse or other home services: No Unable to assess alcohol history related to: Refusing to respond Alcohol intake: former Patient Tobacco Use Status: Current everyday Tobacco user Tobacco use type: Cigarette Cigarette Packs Per Day: 0.5 Cigarettes Per Day: 10.0 Smoked in Last 30 Days: Yes Patient Interested in Nicotine Replacement: No Patient Given Instructions on How to Stop Smoking: No (pt refuses) Second Hand Smoke Exposure: No Use of substances other than those prescribed or required for medical reasons: No Have you been hit, kicked, punched, or otherwise hurt by someone within the past year? If so, by whom?: No Do you feel safe in your current relationship?: Yes Is there a partner from a previous relationship who is making you feel unsafe now?: No Are you made to feel afraid or neglected: No Advance Directives: No Advance Directives Information Provided: Yes Do you have a plan to hurt others: No Plan Recently lost weight without trying: No Nutrition Risks: Acute nausea or vomiting x1 week Poor oral hygiene: No service: No Current occupational status: unemployed Cognitive needs: No Hearing needs: No Vision needs: No Meds Allergies Allergy/AdvReac Type Severity Reaction Status Date / Time No Known Allergies Allergy Verified 08/25/23 09:41 [No Known Allergies*] Home Medications ?Medication ?Instructions ?Recorded ?Confirmed ?Last Taken ?Type gabapentin 100 mg capsule 100 mg PO BID PRN neuropathic pain 08/25/23 08/25/23 Unknown History omeprazole magnesium 20 mg 20 mg PO DAILY@0630 08/25/23 08/25/23 08/24/23 History capsule,delayed release Physical Exam Vital Signs and Narrative: Vital Signs: Last Vital Signs Temp 98.3 F 08/25/23 15:39 Pulse 111 H 08/25/23 15:39 Resp 20 08/25/23 15:39 BP 128/99 H 08/25/23 15:39 Pulse Ox 95 08/25/23 15:39 O2 Del Method Room Air 08/25/23 15:39 BMI result Body Mass Index 29.3 Constitutional: Alert, unkempt, in no acute distress. Mental Status: Oriented to person, place and time. Eyes: Pupils are equal, round, and reactive to light. Ear, Nose, and Throat: Oropharynx clear, mucous membranes dry. Ears and nose without deformities. Trachea midline. Respiratory: Clear to auscultation bilaterally. No wheezing, rales, or rhonchi. Cardiovascular: S1, S2 regular. No murmurs, rubs, or gallops. Gastrointestinal: Abdomen soft, non-tender, non-distended. Normal bowel sounds. Neurologic: Cranial nerves II-XII are grossly intact bilaterally. No focal neurological deficits. Moves all extremities spontaneously. Skin: Warm, dry. Extremities: No edema. 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 No sign of active infection purulent drainage. As pictured below Psychiatric: Normal mood and affect. Results Labs 08/26/23 05:47 08/26/23 05:47 Labs: Laboratory Results - last 24 hr 08/25/23 08/25/23 08/25/23 10:47 12:42 12:55 MCV 82.6 MCH 28.0 MCHC 33.8 RDW 13.7 Plt Count 435 H MPV 9.8 Immature Gran % (Auto) 0.5 H Neut % (Auto) 91.4 H Lymph % (Auto) 3.6 L [place] % (Auto) 4.1 Eos % (Auto) 0.0 Baso % (Auto) 0.4 Lymph # (Auto) 0.7 L [place] # (Auto) 0.8 Eos # (Auto) 0.0 Baso # (Auto) 0.1 Abs Immat Gran (auto) 0.10 H Absolute Neuts (auto) 18.1 H Absolute Nucleated RBC 0.000 Nucleated RBC % (auto) 0.0 Smear Tech's Comments VERIFIED Anion Gap 24 H Estim Creat Clear Calc 41.2 Estimated GFR 26 Random Glucose 348 H Lactic Acid 1.4 Calcium 9.8 D Total Bilirubin 0.3 Direct Bilirubin 0.2 AST 17 ALT 9 Alkaline Phosphatase 120 H Total Protein 7.8 Albumin 3.2 L Lipase 13 Urine Color Yellow Urine Appearance Cloudy Urine pH 6.0 Ur Specific [place] 1.025 Urine Protein >=1000 (4+) H Urine Glucose (UA) >=1000 H Urine Ketones Trace Urine Blood Moderate (2+) H Urine Nitrite Negative Ur Leukocyte Esterase Negative Urine RBC >20 H Urine WBC 0-5 Ur Squamous Epith Cells 0-2 Urine Bacteria None Seen Hyaline Casts 0-2 Imaging Radiologist's Impressions: Impressions Abdomen/Pelvis CT 08/25/23 13:37 IMPRESSION: Wall thickening of the distal thoracic esophagus. Small posterior mediastinal lymph nodes and fluid adjacent to the distal thoracic esophagus. Fleischner guidelines were followed. Assessment and Plan (1) Intractable vomiting: Status: Acute (2) IRAIDA (acute kidney injury): Status: Resolved Plan Pt is a 58-year-old male with a PMH significant for?paroxysmal AFib no longer on anticoagulation, HTN, HLD, insulin-dependent type 2 diabetes, peripheral neuropathy, and hx of osteomyelitis secondary to chronic diabetic foot ulcers who presents to the ED with?intermittent nausea and vomiting for the past 3 weeks. Pt will be admitted to the hospital for treatment and further evaluation of esophagitis and IRAIDA in the setting of intractable nausea and vomiting and reduced p.o. intake. Esophagitis in the setting of intractable nausea and vomiting Pt reports has been intermittent x3 weeks Denies abdominal pain, no diarrhea Unclear etiology: CT of abd/pelvis only showing wall thickening of distal thoracic esophagus IV Protonix Clear liquid diet, NPO after midnight GI consult with possible EGD in morning IRAIDA Creatinine 2.57 at time of presentation, up from baseline of 1.00 Secondary to nausea and vomiting in the setting of reduced p.o. intake Patient received IVF in ED Will be placed on maintenance fluids Follow BMP Leukocytosis WBC 19.8 at time of presentation Likely reactionary to N/V No clear source of infection: CXR negative; CT of abd/pelvis only showing esophagitis; UA negative for UTI Does not meet sepsis criteria: Tachycardia secondary to dehydration, leukocytosis reactive to N/V; lactic acid WNL at 1.4 No indication to continue antibiotics at this time Non-insullin dependent type 2 diabetes Not clear when patient stopped taking insulin Patient with long history of poorly controlled diabetes Will place on sliding scale insulin Check A1c Diabetic diet HTN Continue amlodipine Diabetic neuropathy Continue gabapentin Paroxysmal AFib No longer anticoagulation Current EKG showed normal sinus rhythm Full Code Attending:?Dr. Simental DVT Prophylaxis: Lovenox Pt will require a hospitalization of at least two nights for treatment of?IRAIDA and esophagitis in the setting of intractable nausea and vomiting and reduced p.o. intake. Patient will require hospitalization for administration of IV fluids, close monitoring of labs, and specialist consultation with Gastroenterology. Quality Stroke Does the patient have a stroke diagnosis?: No VTE Prior VTE?: No VTE Risk Level:: Medical - moderate - high VTE Device Contraindication: Treatment Not Indicated VTE Drug Contraindication: N/A - Med Ordered
--- NOTE | 2023-08-25 17:21 | PHA.MEDREC ---
Pharmacy Consult ? Medication Reconciliation Pharmacy has completed the medication reconciliation.
--- NOTE | 2023-08-25 19:24 | PC.NURSE ---
Assumedc are of pt. Pt labs concerning for DKA/IRAIDA - spoke with MD Denis for orders. pt lying on stretcher, no acute distress at this time.
[2023-08-25] MEDS: 0.9 % Sodium Chloride 2,000 ML 999 ML IVCONT (19:25)
[2023-08-25] MEDS: Insulin Regular, Human 100 UNIT/ML 10 ML VIAL 10 UNIT IVPUSH (19:25)
[2023-08-25 21:01] LABS: Anion Gap 19 (12-20); Blood Urea Nitrogen 41 mg/dL (9-16); Carbon Dioxide 24 mmol/L (22-29); Chloride 103 mmol/L (96-108); Creatinine Clr Calc Pharmacy 39.3; Estimated Glomerular Filt Rate 24; Glucose Random 238 mg/dL (60-115); Potassium 4.9 mmol/L (3.3-5.1); Sodium 141 mmol/L (135-145)
[2023-08-25 21:19] LABS: Glucose, Whole Blood 194 mg/dL (60-115)
[2023-08-25] MEDS: Enoxaparin Sodium 40 MG/0.4 ML SYRINGE SUBCUT (21:42)
[2023-08-25] MEDS: Insulin Lispro 100 UNIT/ML 3 ML VIAL SUBCUT (21:42)
[2023-08-25] MEDS: 0.9 % Sodium Chloride 1,000 ML 100 ML IVCONT (21:43)
[2023-08-26 01:23] VITALS: BP 158/92; PULSE 98; RESP 17; TEMP 36.2; O2SAT 96
[2023-08-26 01:39] VITALS: BMI 29.3
[2023-08-26] MEDS: Pantoprazole Sodium 40 MG/10 ML VIAL IVPUSH ×2 (05:30→17:10)
[2023-08-26] MEDS: 0.9 % Sodium Chloride 1,000 ML 100 ML IVCONT ×2 (05:30→16:03)
[2023-08-26 06:40] LABS: Estimated Average Glucose 197 mg/dL; Hemoglobin A1c % 8.5 % (<6.0)
[2023-08-26 06:46] LABS: Anion Gap 17 (12-20); Blood Urea Nitrogen 40 mg/dL (9-16); Carbon Dioxide 24 mmol/L (22-29); Chloride 106 mmol/L (96-108); Estimated Glomerular Filt Rate 24; Glucose Random 192 mg/dL (60-115); Potassium 4.8 mmol/L (3.3-5.1); Sodium 142 mmol/L (135-145)
[2023-08-26 06:55] LABS: Hematocrit 41.6 % (42.0-52.0); Hemoglobin 13.5 g/dl (14.0-18.0); Mean Corpuscular HGB Conc 32.5 g/dl (31.0-36.0); Mean Corpuscular Hemoglobin 27.7 pg (27.0-33.0); Mean Corpuscular Volume 85.4 fL (80.0-98.0); Platelet Count 352 X10*3/uL (160-400); Red Blood Count 4.87 X10*6/uL (4.60-5.80); Red Cell Distribution Width 14.1 % (11.0-16.0); White Blood Count 15.1 X10*3/uL (4.8-10.8)
[2023-08-26 07:42] VITALS: BP 130/88; PULSE 88; RESP 16; TEMP 36.2; O2SAT 97
[2023-08-26 07:43] LABS: Glucose, Whole Blood 182 mg/dL (60-115)
[2023-08-26] MEDS: ondansetron HCL 4 MG/2 ML VIAL IVPUSH (07:56)
[2023-08-26] MEDS: Insulin Lispro 100 UNIT/ML 3 ML VIAL SUBCUT ×3 (07:56→20:20)
[2023-08-26] MEDS: amLODIPine Besylate 10 MG TABLET PO (07:57)
[2023-08-26 11:07] LABS: Glucose, Whole Blood 170 mg/dL (60-115)
--- NOTE | 2023-08-26 11:33 | MHC.CM.PN ---
CM MET WITH PT AT BEDSIDE. PT LIVES ALONE. INDEPENDENT WITH MOBILITY. PT IS UNSURE WHERE HE GETS DIABETIC SUPPLIES? +HCP PCP DR. MINOR DP: HOME WITH SERVICES IF RECOMMENDED? PT HAS OWN RIDE HOME. CM WILL CONTINUE TO FOLLOW FOR ANY CHANGE TO DC PLAN/NEEDS.
--- NOTE | 2023-08-26 12:07 | HO.PM.IMPN ---
Subjective Subjective Date of Service: 08/26/23 Interval History: Being followed for intermittent nausea vomiting of 3 weeks' duration, IRAIDA and hyperglycemia. Patient resting comfortably in bed, mother at bedside. Patient denies nausea, no vomiting, no abdominal pain, denies diarrhea, no fevers, no chills, stop using insulin since was noted to have normal blood sugars at home, no other acute events overnight. Review of Systems All other system reviewed and negative. Physical Exam Vital Signs: Vital Signs: Last Vital Signs Temp 97.2 F 08/26/23 07:42 Pulse 88 08/26/23 07:42 Resp 16 08/26/23 07:42 BP 130/88 08/26/23 07:42 Pulse Ox 97 08/26/23 07:42 O2 Del Method Room Air 08/26/23 07:42 BMI result Body Mass Index 29.3 Const: Other: General resting comfortably in no acute distress. Neck supple no JVD. CVS regular rate rhythm, Respiratory lungs clear to auscultation, no respiratory distress, no wheeze, no rhonchi. Gastrointestinal abdomen soft, non tender, bowel sounds audible, no guarding , no rigidity. Extremities no edema. Neuro non focal . Skin dry scaly skin bilateral lower extremity, right foot status post 5th digit amputation with significant callusing on dorsal as well as plantar aspect, no redness or purulent drainage,see pictures from admission. Psych appropriate affect Objective Data Active Medications Acetaminophen (Acetaminophen 325 Mg Tablet) 650 mg PO Q6H PRN PRN Reason: Pain, Mild (Pain Scale 1-3) Amlodipine Besylate (Amlodipine Besylate 10 Mg Tablet) 10 mg PO DAILY [facility]; Protocol Last Admin: 08/26/23 07:57 Dose: 10 mg Documented By: JAMESON Benzonatate (Benzonatate 100 Mg Capsule) 100 mg PO TID PRN PRN Reason: Cough Docusate Sodium (Docusate Sodium 100 Mg Capsule) 100 mg PO DAILY PRN PRN Reason: Constipation Enoxaparin Sodium (Enoxaparin Sodium 40 Mg/0.4 Ml Syringe) 40 mg SUBCUT Q24H [facility] Last Admin: 08/25/23 21:42 Dose: 40 mg Documented By: CHELSEA Gabapentin (Gabapentin 100 Mg Capsule) 100 mg PO BID PRN PRN Reason: neuropathic pain Glucose (Glucose Gel 15 Gm Gel..Gram.) 15 gm PO Q15M PRN; Protocol PRN Reason: per Hypoglycemia Standing Ord. Dextrose (D10) 250 mls @ 750 mls/hr IV Q15M PRN; Protocol PRN Reason: per Hypoglycemia Standing Ord. Sodium Chloride (Ns) 1,000 mls @ 100 mls/hr IVCONT .Q10H [facility] Last Admin: 08/26/23 05:30 Dose: 100 mls/hr Documented By: LEONARDA Insulin Glargine (Insulin Glargine,Hum.Rec.Anlog 100 Unit/Ml 10 Ml Vial) 12 unit SUBCUT BEDTIME [facility] Insulin Human Lispro (Insulin Lispro 100 Unit/Ml 3 Ml Vial) 0 unit SUBCUT QIDACHS [facility]; Protocol Last Admin: 08/26/23 11:51 Dose: 2 unit Documented By: JAMESON Melatonin (Melatonin 3 Mg Tablet) 6 mg PO BEDTIME PRN PRN Reason: Insomnia Ondansetron HCl (Ondansetron Hcl 4 Mg/2 Ml Vial) 4 mg IVPUSH Q8H PRN PRN Reason: Nausea and Vomiting Last Admin: 08/26/23 07:56 Dose: 4 mg Documented By: JAMESON Pantoprazole Sodium (Pantoprazole Sodium 40 Mg/10 Ml Vial) 40 mg IVPUSH BID@0630,1630 [facility] Last Admin: 08/26/23 05:30 Dose: 40 mg Documented By: LEONARDA Sodium Chloride (0.9 % Sodium Chloride Flush 3 Ml Syringe) 3 ml IVFLUSH QSHIFT [facility] Last Admin: 08/26/23 07:57 Dose: Not Given Documented By: JAMESON Non-Admin Reason: IV Running Labs 08/26/23 05:47 08/26/23 05:47 Labs: Laboratory Results - last 24 hr 08/25/23 08/25/23 08/25/23 12:42 12:55 20:32 MCV MCH MCHC RDW Plt Count MPV Absolute Nucleated RBC Nucleated RBC % (auto) Anion Gap 19 Estim Creat Clear Calc 39.3 Estimated GFR 24 POC Glucose Random Glucose 238 H Estimat Average Glucose Hemoglobin A1c % Lactic Acid 1.4 Calcium 9.0 D Urine Color Yellow Urine Appearance Cloudy Urine pH 6.0 Ur Specific [place] 1.025 Urine Protein >=1000 (4+) H Urine Glucose (UA) >=1000 H Urine Ketones Trace Urine Blood Moderate (2+) H Urine Nitrite Negative Ur Leukocyte Esterase Negative Urine RBC >20 H Urine WBC 0-5 Ur Squamous Epith Cells 0-2 Urine Bacteria None Seen Hyaline Casts 0-2 08/25/23 08/26/23 08/26/23 21:14 05:47 07:37 MCV 85.4 MCH 27.7 MCHC 32.5 RDW 14.1 Plt Count 352 MPV 10.0 Absolute Nucleated RBC 0.000 Nucleated RBC % (auto) 0.0 Anion Gap 17 Estim Creat Clear Calc 39.0 Estimated GFR 24 POC Glucose 194 H 182 H Random Glucose 192 H Estimat Average Glucose 197 Hemoglobin A1c % 8.5 H Lactic Acid Calcium 9.0 Urine Color Urine Appearance Urine pH Ur Specific [place] Urine Protein Urine Glucose (UA) Urine Ketones Urine Blood Urine Nitrite Ur Leukocyte Esterase Urine RBC Urine WBC Ur Squamous Epith Cells Urine Bacteria Hyaline Casts 08/26/23 11:04 MCV MCH MCHC RDW Plt Count MPV Absolute Nucleated RBC Nucleated RBC % (auto) Anion Gap Estim Creat Clear Calc Estimated GFR POC Glucose 170 H Random Glucose Estimat Average Glucose Hemoglobin A1c % Lactic Acid Calcium Urine Color Urine Appearance Urine pH Ur Specific [place] Urine Protein Urine Glucose (UA) Urine Ketones Urine Blood Urine Nitrite Ur Leukocyte Esterase Urine RBC Urine WBC Ur Squamous Epith Cells Urine Bacteria Hyaline Casts Assessment and Plan (1) Intractable vomiting: Status: Acute (2) Esophagitis: Status: Acute (3) Acute kidney injury: Status: Acute Plan 58-year-old male with a PMH significant for?paroxysmal AFib no longer on anticoagulation, HTN, HLD, insulin-dependent type 2 diabetes, peripheral neuropathy, and hx of osteomyelitis secondary to chronic diabetic foot ulcers who presents to the ED with?intermittent nausea and vomiting for the past 3 weeks. Pt will be admitted to the hospital for treatment and further evaluation of esophagitis and IRAIDA in the setting of intractable nausea and vomiting and reduced p.o. intake. Esophagitis in the setting of intractable nausea and vomiting X 3 weeks No further nausea vomiting, no abdominal pain or diarrhea Unclear etiology: CT of abd/pelvis only showing wall thickening of distal thoracic esophagus on IV Protonix, NPO Waiting for GI eval for possible upper endoscopy IRAIDA Creatinine 2.57 at time of presentation, bumped to 2.72, up from baseline of 1.00 Likely prerenal continue IV fluids ,Follow BMP Consult nephro Leukocytosis WBC 19.8 at time of presentation, improved to 15.1 Likely reactionary to N/V No clear source of infection: CXR negative; CT of abd/pelvis only showing esophagitis; UA negative for UTI Does not meet sepsis criteria: Tachycardia secondary to dehydration, leukocytosis reactive to N/V; lactic acid WNL at 1.4 No indication for antibiotics. Non-insullin dependent type 2 diabetes Stopped Lantus long time ago since he noted to have normal blood sugars A1c 8.5, will place on Lantus 12 units at bedtime continue insulin sliding scale and Diabetic diet HTN Stable blood pressure, Continue amlodipine Diabetic neuropathy Continue gabapentin prn Paroxysmal AFib No longer anticoagulation, Current EKG showed normal sinus rhythm Full Code DVT Prophylaxis: Lovenox Pt will require continued inpatient hospitalization for treatment of?IRAIDA and esophagitis in the setting of intractable nausea and vomiting and reduced p.o. intake. Patient will require hospitalization for administration of IV fluids, close monitoring of labs, and specialist consultation with Gastroenterology and Nephrology. Quality Stroke Does the patient have a stroke diagnosis?: No VTE Prior VTE?: No VTE Risk Level:: Medical - moderate - high VTE Device Contraindication: Treatment Not Indicated VTE Drug Contraindication: N/A - Med Ordered
--- NOTE | 2023-08-26 12:39 | P.CONNP_ITS ---
History of Present Illness Reason for Consult Consult date: 08/27/23 Reason for consult: IRAIDA Chief Complaint Chief complaint: Intermittent N/V, IRAIDA History of Present Illness Narrative: 58-year-old male with a PMH significant for?paroxysmal AFib no longer on anticoagulation, HTN, HLD, insulin-dependent type 2 diabetes, peripheral neuropathy, and hx of osteomyelitis secondary to chronic diabetic foot ulcers who presents to the ED with?intermittent nausea and vomiting for the past 3 weeks. Serum creatinine was 1.0 in 06/11/2021. Review of Systems Constitutional: Denies anorexia, Denies fever(s) and Denies weakness Eyes: Denies blurry vision Cardiovascular: Denies no additional cardiovascular complaints and Denies dyspnea Respiratory: Reports no additional respiratory complaints, Reports cough and Denies dyspnea Gastrointestinal: Denies melena and Denies diarrhea Genitourinary: Denies hematuria Musculoskeletal: Denies tingling Skin/Breast: Denies rash Denies focal weakness, Denies tingling, Denies tremor(s) and Denies weakness PMFSH Past Medical History Medical History Obesity (BMI 30-39.9) Benign essential hypertension Diabetes mellitus Type II diabetes mellitus Uncontrolled diabetes mellitus Paroxysmal atrial fibrillation Diabetic foot infection COVID-19 Family History Family History Mother No problems noted. Father No problems noted. Surgical History Surgical History No pertinent past surgical history Social History Social History Household Members: None Housing: Apartment Do you presently have visiting nurse or other home services: No Unable to assess alcohol history related to: Refusing to respond Alcohol intake: former Patient Tobacco Use Status: Current everyday Tobacco user Tobacco use type: Cigarette Cigarette Packs Per Day: 0.5 Cigarettes Per Day: 10.0 Smoked in Last 30 Days: Yes Patient Interested in Nicotine Replacement: No Patient Given Instructions on How to Stop Smoking: No (pt refuses) Second Hand Smoke Exposure: No Use of substances other than those prescribed or required for medical reasons: No Currently Displaying Signs/Symptoms of Drug Intoxication Withdrawal: No Have you been hit, kicked, punched, or otherwise hurt by someone within the past year? If so, by whom?: No Do you feel safe in your current relationship?: Yes Is there a partner from a previous relationship who is making you feel unsafe now?: No Are you made to feel afraid or neglected: No Advance Directives: No Advance Directives Information Provided: Yes Do you have a plan to hurt others: No Plan Recently lost weight without trying: No Nutrition Risks: Acute nausea or vomiting x1 week Poor oral hygiene: No service: No Current occupational status: unemployed Cognitive needs: No Hearing needs: No Vision needs: No Meds Allergies Allergy/AdvReac Type Severity Reaction Status Date / Time No Known Allergies Allergy Verified 08/25/23 09:41 [No Known Allergies*] Active Medications: Current Medications Acetaminophen (Acetaminophen 325 Mg Tablet) 650 mg PO Q6H PRN PRN Reason: Pain, Mild (Pain Scale 1-3) Amlodipine Besylate (Amlodipine Besylate 10 Mg Tablet) 10 mg PO DAILY COUNTS INCLUDE 234 BEDS AT THE [facility]; Protocol Last Admin: 08/26/23 07:57 Dose: 10 mg Benzonatate (Benzonatate 100 Mg Capsule) 100 mg PO TID PRN PRN Reason: Cough Docusate Sodium (Docusate Sodium 100 Mg Capsule) 100 mg PO DAILY PRN PRN Reason: Constipation Enoxaparin Sodium (Enoxaparin Sodium 40 Mg/0.4 Ml Syringe) 40 mg SUBCUT Q24H COUNTS INCLUDE 234 BEDS AT THE [facility] Last Admin: 08/25/23 21:42 Dose: 40 mg Gabapentin (Gabapentin 100 Mg Capsule) 100 mg PO BID PRN PRN Reason: neuropathic pain Glucose (Glucose Gel 15 Gm Gel..Gram.) 15 gm PO Q15M PRN; Protocol PRN Reason: per Hypoglycemia Standing Ord. Dextrose (D10) 250 mls @ 750 mls/hr IV Q15M PRN; Protocol PRN Reason: per Hypoglycemia Standing Ord. Sodium Chloride (Ns) 1,000 mls @ 100 mls/hr IVCONT .Q10H COUNTS INCLUDE 234 BEDS AT THE [facility] Last Admin: 08/26/23 05:30 Dose: 100 mls/hr Insulin Glargine (Insulin Glargine,Hum.Rec.Anlog 100 Unit/Ml 10 Ml Vial) 12 unit SUBCUT BEDTIME COUNTS INCLUDE 234 BEDS AT THE [facility] Insulin Human Lispro (Insulin Lispro 100 Unit/Ml 3 Ml Vial) 0 unit SUBCUT QIDACHS COUNTS INCLUDE 234 BEDS AT THE [facility]; Protocol Last Admin: 08/26/23 11:51 Dose: 2 unit Melatonin (Melatonin 3 Mg Tablet) 6 mg PO BEDTIME PRN PRN Reason: Insomnia Ondansetron HCl (Ondansetron Hcl 4 Mg/2 Ml Vial) 4 mg IVPUSH Q8H PRN PRN Reason: Nausea and Vomiting Last Admin: 08/26/23 07:56 Dose: 4 mg Pantoprazole Sodium (Pantoprazole Sodium 40 Mg/10 Ml Vial) 40 mg IVPUSH BID@0630,1630 COUNTS INCLUDE 234 BEDS AT THE [facility] Last Admin: 08/26/23 05:30 Dose: 40 mg Sodium Chloride (0.9 % Sodium Chloride Flush 3 Ml Syringe) 3 ml IVFLUSH QSHIFT COUNTS INCLUDE 234 BEDS AT THE [facility] Last Admin: 08/26/23 07:57 Dose: Not Given Home Medications ?Medication ?Instructions ?Recorded ?Confirmed ?Last Taken ?Type gabapentin 100 mg capsule 100 mg PO BID PRN neuropathic pain 08/25/23 08/25/23 Unknown History omeprazole magnesium 20 mg 20 mg PO DAILY@0630 08/25/23 08/25/23 08/24/23 History capsule,delayed release Physical Exam Vital Signs: Last Vital Signs Temp 97.2 F 08/26/23 07:42 Pulse 88 08/26/23 07:42 Resp 16 08/26/23 07:42 BP 130/88 08/26/23 07:42 Pulse Ox 97 08/26/23 07:42 O2 Del Method Room Air 08/26/23 07:42 BMI result Body Mass Index 29.3 Const General: comfortable Nutritional Appearance: well nourished Orientation/consciousness: patient oriented x3 HEENT Head: No normal to inspection Mouth: moist mucous membranes Neck Neck: Yes supple and Yes no JVD Resp Auscultation: clear to auscultation bilaterally, no rales and rub present Cardio Jugular venous distension: no JVD Palpation: no palpable S3 and no palpable S4 Heart sounds: no rubs GI Palpation (GI): Soft to palpation and nontender Percussion: No Fluid wave present General: Yes no CVA tenderness Back/Spine/Pelvis Back: no CVA tenderness Skin General skin exam: no rashes or lesions noted Neuro General: patient oriented x3 Extrem Other: Amputation of toe in foot ulcers seen General: Yes no pedal edema and No clubbing Results Lab Results 08/26/23 05:47 08/27/23 05:28 Lab results: Chemistry 08/25/23 08/25/23 08/26/23 10:47 20:32 05:47 Sodium 139 141 142 Potassium 4.6 4.9 4.8 Carbon Dioxide 24 BUN 39 H 41 H 40 H Creatinine 2.57 H 2.70 H 2.72 H Calcium 9.8 D 9.0 D 9.0 Hematology 08/25/23 08/26/23 10:47 05:47 WBC 19.8 H 15.1 H Hgb 15.6 D 13.5 L Plt Count 435 H 352 Urinalysis 08/25/23 12:55 Urine Color Yellow Urine Appearance Cloudy Urine pH 6.0 Ur Specific [place] 1.025 Urine Protein >=1000 (4+) H Urine Glucose (UA) >=1000 H Urine Ketones Trace Urine Blood Moderate (2+) H Urine Nitrite Negative Ur Leukocyte Esterase Negative Urine RBC >20 H Urine WBC 0-5 Ur Squamous Epith Cells 0-2 Hyaline Casts 0-2 Assessment and Plan (1) Acute kidney injury: Status: Acute Plan 58-year-old man with acute kidney injury in a setting of longstanding diabetes mellitus and hypertension. Silvestre has underlying chronic kidney disease most likely due to hypertensive diabetic kidney disease. He has probably sustained acute kidney injury. Differential diagnosis would include hypoperfusion. Next item obstruction should be ruled out. Other possibilities including glomerular nephro addition setting of active infection or interstitial nephritis should also be considered and ruled out. Recommendations Check urine for protein creatinine ratio. Check serum complements. Urine for eosinophils. Keep intake more than output and start IV hydration. Hold metformin Renal ultrasonogram to assess echogenicity and to rule out hydronephrosis. Watch renal function over the next several days. Continue to avoid nephrotoxic agents. No indication for dialysis She will follow along with the team Procedures Date of Service Date of Service: 08/27/23
--- NOTE | 2023-08-26 15:18 | MHC.SHP ---
Pre-Procedural Eval Section A - 24 Hr Update-Section A only Date of Service: 08/26/23 The patient is an INPATIENT: Yes Changes since office visit: No Cold of Flu in the past 2 weeks, No New Medical Problems, No Changes in Medication and No Patient answered all questions The patient has been examined within 24 hours of the surgical procedure. The History & Physical has been completed within 30 days and I have reviewed it.: Yes Section B - Complete if H&P > 30 days Chief Complaint: Intermittent N/V, IRAIDA Allergies: Allergies Allergy/AdvReac Type Severity Reaction Status Date / Time No Known Allergies Allergy Verified 08/25/23 09:41 [No Known Allergies*] Plan I have reviewed the history and physical and performed a pertinent physical examination on my patient. No changes have occurred unless specified. Time Spent With Patient Time: Total time managing care of this patient today ____ minutes.
--- NOTE | 2023-08-26 15:18 | PM.EVENT ---
Event Note Date of Service: 08/26/23 Event Note: GI consult dictated EGD planned for tomorrow for further evaluation of ct scan and ugi symptoms. Time Spent With Patient Time: Total time managing care of this patient today ____ minutes.
[2023-08-26 15:29] VITALS: BP 170/82; PULSE 97; RESP 18; TEMP 36.2; O2SAT 96
--- NOTE | 2023-08-26 15:34 | HO.WOUND ---
Wound Consult: Initial 58yr old?[place] [facility] - See progress notes and H&P for detailed history.? Wound consult placed for right Foot Diabetic Wound.? Patient agreeable to assessment and photo documentation.? Patient has minimal information to offer. he is unaware of the wound to his foot, he denies drainage at home. He reports he has not sought medical care for the wound. The patient will benefit from out patient wound care follow up and Podiatry follow up at time of discharge. Patient was made a escamilla but he reports he is unsure if he will follow up. Right Plantar prior to cleansing Post Cleansing Right Plantar Etiology: Diabetic Wound -??Present on Admission Measurements: see charting for detailed measurements Wound Bed: light purple pink dry wound bed Drainage / Odor: No drainage observed however there appears to be drainage trapped under the thick callused tissue which was likely contributing to the significant odor Edges: ?Thickly callused raised tissue -dry flaking tissue Naz wound: ?callused - intact - No Induration, Fluctuance or Warmth noted Pain: pt denies pain reports neuropathy Goals of Treatment: ? Durafiber AG for moisture management and antimicrobial treatment Of note there is a wound to the lateral side of the plantar foot - thickly callused wound bed and edges not able to observe wound bed - will recommend continued cleansing to soften tissue to allow for wound bed assessment Recommendations: 1. Turn and Reposition every 2 hours and as needed for patient comfort.? Use pillows or wedges to support off loading positions. 2. Off Load all bony prominences with use of pillows and heel boots if needed.? Apply Preventative foams where needed. ? 3. Monitor for incontinence and moisture control, use barrier creams when needed for prevention and treatment. 4. Provide adequate and supplemental nutrition.? 5. Order or Continue low air loss mattress. 6. When applicable maintain blood glucose levels per Providers order. 7. Right Plantar - Cleanse and irrigate with NS, pat dry. Lightly pack wound bed with Durafiber AG. Apply Vaseline to periwound and thick callused tissue to allow thick tissue to soften for removal at next washing. Change Daily. Recommend follow up out patient Wound Clinic at [address] [place] [id number] and to call for an appointment at time of discharge. [phone].? Re-consult wound care Nurse for wound deterioration or wound changes.
[2023-08-26 16:17] LABS: Glucose, Whole Blood 125 mg/dL (60-115)
[2023-08-26 16:44] VITALS: BP 170/84
[2023-08-26 19:23] VITALS: BP 131/99; PULSE 98; RESP 18; TEMP 36.1; O2SAT 97
[2023-08-26 20:14] LABS: Glucose, Whole Blood 172 mg/dL (60-115)
[2023-08-26] MEDS: Insulin Glargine,Hum.rec.anlog 100 UNIT/ML 10 ML VIAL 12 UNIT SUBCUT (20:19)
[2023-08-27] VITALS (11 sets, daily range): BP systolic 116–183; BP diastolic 65–96; PULSE 86–102; RESP 16–20; TEMP 36.1–36.9; O2SAT 95–98
[2023-08-27] MEDS: 0.9 % Sodium Chloride 1,000 ML 100 ML IVCONT (01:00)
--- NOTE | 2023-08-27 02:18 | CONS_ITS ---
DATE OF SERVICE: 08/26/2023 REFERRING PHYSICIAN: Leigha Yan REASON FOR CONSULTATION: Abnormal CT scan of the esophagus, vomiting, and dysphagia. HISTORY OF PRESENT ILLNESS: The patient is a 58-year-old man who was admitted to the hospital on 08/24 after presenting to the emergency room with complaints of vomiting. He states today that he vomited the day before and the day of admission, but not previous to this. He does describe some intermittent dysphagia over the past several months, which has not been progressive. This seems to occur mostly with solids. He was evaluated in the emergency department, and CT scanning was obtained, which is reviewed. This showed wall thickening involving the distal thoracic esophagus with some small adjacent paraesophageal lymph nodes and fluid. The patient claims a weight loss of approximately 40 pounds over the past 6 to 12 months. He does report a history of heartburn for which he takes omeprazole. He has not had upper endoscopy. PAST MEDICAL HISTORY: 1. Diabetes mellitus. 2. Gastroesophageal reflux disease. 3. Paroxysmal atrial fibrillation. 4. Hypertension. 5. Hyperlipidemia. 6. Neuropathy. 7. Osteomyelitis with diabetic foot ulcers. 8. Obesity. CURRENT MEDICATIONS: Current medication list is reviewed in the chart. ALLERGIES: THERE ARE NONE REPORTED. FAMILY HISTORY: This is reviewed with the patient and is noncontributory. He denies a family history of esophageal cancer. SOCIAL HISTORY: He does smoke. He denies alcohol use. There is no reported substance abuse. REVIEW OF SYSTEMS: SKIN: No pruritus. HEENT: Negative. CARDIOPULMONARY: No shortness of breath or chest pain. GASTROINTESTINAL: As above. GENITOURINARY: Negative. NEUROPSYCHIATRIC: Negative. PHYSICAL EXAMINATION: GENERAL: Shows a pleasant male, lying comfortably in bed. VITAL SIGNS: Reviewed in the electronic medical record and are stable. SKIN: Anicteric. HEENT: Shows no scleral icterus. NECK: Without lymphadenopathy or thyromegaly. LUNGS: Clear. HEART: Shows a regular rate and rhythm. S1, S2. No murmur. ABDOMEN: Soft without focal masses or tenderness. Bowel sounds are present. No organomegaly is noted. EXTREMITIES: Show chronic foot ulcers. LABORATORY DATA AND IMAGING STUDIES: Reviewed. IMPRESSION: 1. Abnormal CT scan of the esophagus. 2. Nausea and vomiting, limited. 3. Dysphagia, nonprogressive. I discussed further evaluation of upper endoscopy with Silvestre. He understands risks and benefits and agrees to proceed. This will be arranged for tomorrow. In the meantime, I agree with treating him with a proton pump inhibitor as is being done. Thanks for asking me to see him. I will follow him in the hospital with you. MD SYLVIA Reynoso/DILIP / [phone]
[2023-08-27] MEDS: Pantoprazole Sodium 40 MG/10 ML VIAL IVPUSH ×2 (05:34→17:00)
[2023-08-27 06:07] LABS: Anion Gap 13 (12-20); Blood Urea Nitrogen 28 mg/dL (9-16); Calcium 9.4 mg/dL (8.4-10.2); Carbon Dioxide 27 mmol/L (22-29); Chloride 107 mmol/L (96-108); Creatinine Clr Calc Pharmacy 55.5; Estimated Glomerular Filt Rate 36; Glucose Random 109 mg/dL (60-115); Potassium 4.2 mmol/L (3.3-5.1); Sodium 143 mmol/L (135-145)
[2023-08-27 07:38] LABS: Glucose, Whole Blood 108 mg/dL (60-115)
[2023-08-27] MEDS: Dextrose 5 % and Lactated Ring 1,000 ML 100 ML IVCONT ×2 (08:20→17:00)
[2023-08-27] MEDS: amLODIPine Besylate 10 MG TABLET PO (08:52)
--- NOTE | 2023-08-27 10:30 | P.PNNP_ITS ---
Subjective Subjective Date of Service: 08/29/23 Interval history: Events noted Feels better. Creatinine is trending down. Physical Exam 2 Vital Signs: Vital Signs: Last Vital Signs Temp 96.9 F 08/27/23 07:29 Pulse 97 08/27/23 07:29 Resp 16 08/27/23 07:29 BP 158/82 H 08/27/23 08:52 Pulse Ox 98 08/27/23 07:29 O2 Del Method Room Air 08/27/23 07:29 BMI result Body Mass Index 29.3 Const: General: comfortable Nutritional Appearance: well nourished O rientation/consciousness: patient oriented x3 HEENT: Head: No normal to inspection Mouth: moist mucous membranes Neck: Neck: Yes supple and Yes no JVD Resp: Auscultation: clear to auscultation bilaterally, no rales and rub present Cardio: Jugular venous distension: no JVD Palpation: no palpable S3 and no palpable S4 Heart sounds: no rubs GI: Palpation (GI): Soft to palpation and nontender Percussion: No Fluid wave present : General: Yes no CVA tenderness Back/Spine/Pelvis: Back: no CVA tenderness Skin: General skin exam: no rashes or lesions noted Neuro: General: patient oriented x3 Extrem: Other: Amputation of toe in foot ulcers seen General: Yes no pedal edema and No clubbing Objective Data Labs 08/28/23 05:50 08/29/23 05:22 Labs: Laboratory Results - last 24 hr 08/26/23 08/26/23 08/26/23 11:04 16:13 20:11 Hold Purple Top Sodium Potassium Chloride Carbon Dioxide Anion Gap BUN Creatinine Estim Creat Clear Calc Estimated GFR POC Glucose 170 H 125 H 172 H Random Glucose Calcium 08/27/23 08/27/23 05:28 07:34 Hold Purple Top SEE NOTE Sodium 143 Potassium 4.2 Chloride 107 Carbon Dioxide 27 Anion Gap 13 BUN 28 H Creatinine 1.91 H Estim Creat Clear Calc 55.5 Estimated GFR 36 POC Glucose 108 Random Glucose 109 Calcium 9.4 Microbiology Microbiology Results: Microbiology 08/25/23 12:47 Blood - Venous Blood Culture - Preliminary No growth after 24 hours. 08/25/23 12:42 Blood - Venous Blood Culture - Preliminary No growth after 24 hours. Procedures Date of Service Date of Service: 08/29/23 Assessment & Plan Assessment and plan (1) Acute kidney injury: Status: Acute Plan 58-year-old man with acute kidney injury in a setting of longstanding diabetes mellitus and hypertension. Silvestre has underlying chronic kidney disease most likely due to hypertensive diabetic kidney disease. He has probably sustained acute kidney injury. Differential diagnosis would include hypoperfusion. Next item obstruction should be ruled out. Other possibilities including glomerular nephro addition setting of active infection or interstitial nephritis should also be considered and ruled out. Recommendations Ordered urine protein creatinine ratio Check serum complements. Urine for eosinophils. Keep intake more than output and start IV hydration. Hold metformin Watch renal function over the next several days. Continue to avoid nephrotoxic agents. No indication for dialysis will follow along with the team Time Spent With Patient Time: Total time managing care of this patient today ____ minutes. Progress Note: Quality Stroke Does the patient have a stroke diagnosis?: No
[2023-08-27 11:13] LABS: Glucose, Whole Blood 150 mg/dL (60-115)
--- NOTE | 2023-08-27 13:22 | P.PNIM_ITS ---
Subjective Subjective Date of Service: 08/27/23 Interval History: Being followed for acute kidney injury, hyperkalemia glycemia and intermittent nausea vomiting of 3 weeks' duration. Resting comfortably offers no acute complaints, no recurrent nausea vomiting, NPO for upper endoscopy scheduled for today. Review of Systems All other system reviewed and negative. Physical Exam 2 Vital Signs: Vital Signs: Last Vital Signs Temp 98.4 F 08/27/23 13:06 Pulse 94 08/27/23 13:06 Resp 20 08/27/23 13:06 BP 168/91 H 08/27/23 13:06 Pulse Ox 96 08/27/23 13:06 O2 Del Method Room Air 08/27/23 13:06 BMI result Body Mass Index 29.3 Const: Other: General resting comfortably in no acute distress. Neck supple no JVD. CVS regular rate rhythm, Respiratory lungs clear to auscultation, no respiratory distress, no wheeze, no rhonchi. Gastrointestinal abdomen soft, non tender, bowel sounds audible, no guarding , no rigidity. Extremities no edema. Neuro non focal . 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 Psych appropriate affect Objective Data Active Medications Acetaminophen (Acetaminophen 325 Mg Tablet) 650 mg PO Q6H PRN PRN Reason: Pain, Mild (Pain Scale 1-3) Amlodipine Besylate (Amlodipine Besylate 10 Mg Tablet) 10 mg PO DAILY [facility]; Protocol Last Admin: 08/27/23 08:52 Dose: 10 mg Documented By: AMAYA Benzonatate (Benzonatate 100 Mg Capsule) 100 mg PO TID PRN PRN Reason: Cough Docusate Sodium (Docusate Sodium 100 Mg Capsule) 100 mg PO DAILY PRN PRN Reason: Constipation Enoxaparin Sodium (Enoxaparin Sodium 40 Mg/0.4 Ml Syringe) 40 mg SUBCUT Q24H [facility] Last Admin: 08/25/23 21:42 Dose: 40 mg Documented By: CHELSEA Gabapentin (Gabapentin 100 Mg Capsule) 100 mg PO BID PRN PRN Reason: neuropathic pain Glucose (Glucose Gel 15 Gm Gel..Gram.) 15 gm PO Q15M PRN; Protocol PRN Reason: per Hypoglycemia Standing Ord. Dextrose (D10) 250 mls @ 750 mls/hr IV Q15M PRN; Protocol PRN Reason: per Hypoglycemia Standing Ord. Dextrose/Lactated Ringer's (D5lr) 1,000 mls @ 100 mls/hr IVCONT .Q10H [facility] Last Admin: 08/27/23 08:20 Dose: 100 mls/hr Documented By: AMAYA Insulin Glargine (Insulin Glargine,Hum.Rec.Anlog 100 Unit/Ml 10 Ml Vial) 12 unit SUBCUT BEDTIME [facility] Last Admin: 08/26/23 20:19 Dose: 12 unit Documented By: LEONARDA Insulin Human Lispro (Insulin Lispro 100 Unit/Ml 3 Ml Vial) 0 unit SUBCUT QIDACHS [facility]; Protocol Last Admin: 08/27/23 11:17 Dose: Not Given Documented By: AMAYA Non-Admin Reason: No Insulin Coverage Melatonin (Melatonin 3 Mg Tablet) 6 mg PO BEDTIME PRN PRN Reason: Insomnia Ondansetron HCl (Ondansetron Hcl 4 Mg/2 Ml Vial) 4 mg IVPUSH Q8H PRN PRN Reason: Nausea and Vomiting Last Admin: 08/26/23 07:56 Dose: 4 mg Documented By: JAMESON Pantoprazole Sodium (Pantoprazole Sodium 40 Mg/10 Ml Vial) 40 mg IVPUSH BID@0630,1630 [facility] Last Admin: 08/27/23 05:34 Dose: 40 mg Documented By: LEONARDA Sodium Chloride (0.9 % Sodium Chloride Flush 3 Ml Syringe) 3 ml IVFLUSH QSHIFT [facility] Last Admin: 08/27/23 07:25 Dose: Not Given Documented By: AMAYA Non-Admin Reason: IV Running Labs 08/26/23 05:47 08/27/23 05:28 Labs: Laboratory Results - last 24 hr 08/26/23 08/26/23 08/27/23 16:13 20:11 05:28 Hold Purple Top SEE NOTE Anion Gap 13 Estim Creat Clear Calc 55.5 Estimated GFR 36 POC Glucose 125 H 172 H Random Glucose 109 Calcium 9.4 08/27/23 08/27/23 07:34 10:59 Hold Purple Top Anion Gap Estim Creat Clear Calc Estimated GFR POC Glucose 108 150 H Random Glucose Calcium Microbiology Microbiology Results: Microbiology 08/25/23 12:47 Blood Culture - Preliminary Blood - Venous No growth after 24 hours. 08/25/23 12:42 Blood Culture - Preliminary Blood - Venous No growth after 24 hours. Assessment and Plan (1) Intractable vomiting: Status: Acute (2) Esophagitis: Status: Acute (3) Acute kidney injury: Status: Acute Plan 58-year-old male with a PMH significant for?paroxysmal AFib no longer on anticoagulation, HTN, HLD, insulin-dependent type 2 diabetes, peripheral neuropathy, and hx of osteomyelitis secondary to chronic diabetic foot ulcers who presents to the ED with?intermittent nausea and vomiting for the past 3 weeks. Pt will be admitted to the hospital for treatment and further evaluation of esophagitis and IRAIDA in the setting of intractable nausea and vomiting and reduced p.o. intake. Esophagitis in the setting of intractable nausea and vomiting X 3 weeks No further nausea vomiting, no abdominal pain or diarrhea Unclear etiology: CT of abd/pelvis only showing wall thickening of distal thoracic esophagus on IV Protonix, NPO for upper endoscopy scheduled for today On IV fluids. [place]IDA Creatinine 2.57 at time of presentation, bumped to 2.72, now trending down to 1.91 Likely prerenal continue IV fluids ,Follow BMP Case discussed with Nephro Leukocytosis WBC 19.8 at time of presentation, improved to 15.1 Likely reactionary to N/V No clear source of infection: CXR negative; CT of abd/pelvis only showing esophagitis; UA negative for UTI Does not meet sepsis criteria: Tachycardia secondary to dehydration, leukocytosis reactive to N/V; lactic acid WNL at 1.4 No indication for antibiotics. Non-insullin dependent type 2 diabetes Stopped Lantus long time ago since he noted to have normal blood sugars Blood sugars improved to less than 200 A1c 8.5, continue Lantus 12 units at bedtime, continue insulin sliding scale and Diabetic diet HTN Follow blood pressure, Continue amlodipine Diabetic neuropathy Continue gabapentin prn Chronic diabetic right plantar foot wounds seen by wound nurse continue wound care, and recommend outpatient follow-up with wound clinic Paroxysmal AFib No longer anticoagulation, Current EKG showed normal sinus rhythm Full Code DVT Prophylaxis: Lovenox Pt will require continued inpatient hospitalization for treatment of?IRAIDA and esophagitis in the setting of intractable nausea and vomiting and reduced p.o. intake. Patient will require hospitalization for administration of IV fluids, close monitoring of labs, and specialist consultation with Gastroenterology and Nephrology. Quality Stroke Does the patient have a stroke diagnosis?: No VTE Prior VTE?: No VTE Risk Level:: Medical - moderate - high VTE Device Contraindication: Treatment Not Indicated VTE Drug Contraindication: N/A - Med Ordered
[2023-08-27 13:40] LABS: Glucose, Whole Blood 158 mg/dL (60-115)
--- NOTE | 2023-08-27 14:37 | HO.ANESPROP2 ---
HPI - Anesthesia Eval Consult details Narrative: for EGD, for dysphagia and abn esoph CT PMFSH Active Problems Active Problems: All Active Problems Intractable vomiting (Acute) Esophagitis (Acute) Dehydration (Acute) Acute kidney injury (Acute) Obesity (BMI 30-39.9) (Acute) Benign essential hypertension (Acute) Annual physical exam (Acute) Anemia (Acute) Diabetes mellitus (Acute) PAD (peripheral artery disease) (Acute) Osteomyelitis (Acute) Diabetic foot infection (Acute) Type II diabetes mellitus (Acute) Hospital discharge follow-up (Acute) Uncontrolled diabetes mellitus (Acute) Paroxysmal atrial fibrillation (Acute) Past Medical History Medical History Obesity (BMI 30-39.9) Benign essential hypertension Diabetes mellitus Type II diabetes mellitus Uncontrolled diabetes mellitus Paroxysmal atrial fibrillation Diabetic foot infection COVID-19 Family History Family History Mother No problems noted. Father No problems noted. Family history of problems with anesthesia: No Surgical History Surgical History No pertinent past surgical history History of Problems with Anesthesia: No Social History Social History Household Members: None Housing: Apartment Do you presently have visiting nurse or other home services: No Unable to assess alcohol history related to: Refusing to respond Alcohol intake: former Patient Tobacco Use Status: Current everyday Tobacco user Tobacco use type: Cigarette Cigarette Packs Per Day: 0.5 Cigarettes Per Day: 10.0 Smoked in Last 30 Days: Yes Patient Interested in Nicotine Replacement: No Patient Given Instructions on How to Stop Smoking: No (pt refuses) Second Hand Smoke Exposure: No Use of substances other than those prescribed or required for medical reasons: No Currently Displaying Signs/Symptoms of Drug Intoxication Withdrawal: No Have you been hit, kicked, punched, or otherwise hurt by someone within the past year? If so, by whom?: No Do you feel safe in your current relationship?: Yes Is there a partner from a previous relationship who is making you feel unsafe now?: No Are you made to feel afraid or neglected: No Are you DNR?: No Advance Directives: No Advance Directives Information Provided: Yes Do you have a plan to hurt others: No Plan Recently lost weight without trying: No Nutrition Risks: No Nutritional Risk Poor oral hygiene: No service: No Current occupational status: unemployed Cognitive needs: No Hearing needs: No Vision needs: No Meds Allergies Allergy/AdvReac Type Severity Reaction Status Date / Time No Known Allergies Allergy Verified 08/25/23 09:41 [No Known Allergies*] Active Medications: Current Medications Acetaminophen (Acetaminophen 325 Mg Tablet) 650 mg PO Q6H PRN PRN Reason: Pain, Mild (Pain Scale 1-3) Amlodipine Besylate (Amlodipine Besylate 10 Mg Tablet) 10 mg PO DAILY [facility]; Protocol Last Admin: 08/27/23 08:52 Dose: 10 mg Benzonatate (Benzonatate 100 Mg Capsule) 100 mg PO TID PRN PRN Reason: Cough Docusate Sodium (Docusate Sodium 100 Mg Capsule) 100 mg PO DAILY PRN PRN Reason: Constipation Enoxaparin Sodium (Enoxaparin Sodium 40 Mg/0.4 Ml Syringe) 40 mg SUBCUT Q24H [facility] Last Admin: 08/25/23 21:42 Dose: 40 mg Gabapentin (Gabapentin 100 Mg Capsule) 100 mg PO BID PRN PRN Reason: neuropathic pain Glucose (Glucose Gel 15 Gm Gel..Gram.) 15 gm PO Q15M PRN; Protocol PRN Reason: per Hypoglycemia Standing Ord. Dextrose (D10) 250 mls @ 750 mls/hr IV Q15M PRN; Protocol PRN Reason: per Hypoglycemia Standing Ord. Dextrose/Lactated Ringer's (D5lr) 1,000 mls @ 100 mls/hr IVCONT .Q10H [facility] Last Admin: 08/27/23 08:20 Dose: 100 mls/hr Insulin Glargine (Insulin Glargine,Hum.Rec.Anlog 100 Unit/Ml 10 Ml Vial) 12 unit SUBCUT BEDTIME [facility] Last Admin: 08/26/23 20:19 Dose: 12 unit Insulin Human Lispro (Insulin Lispro 100 Unit/Ml 3 Ml Vial) 0 unit SUBCUT QIDACHS [facility]; Protocol Last Admin: 08/27/23 11:17 Dose: Not Given Melatonin (Melatonin 3 Mg Tablet) 6 mg PO BEDTIME PRN PRN Reason: Insomnia Ondansetron HCl (Ondansetron Hcl 4 Mg/2 Ml Vial) 4 mg IVPUSH Q8H PRN PRN Reason: Nausea and Vomiting Last Admin: 08/26/23 07:56 Dose: 4 mg Pantoprazole Sodium (Pantoprazole Sodium 40 Mg/10 Ml Vial) 40 mg IVPUSH BID@0630,1630 [facility] Last Admin: 08/27/23 05:34 Dose: 40 mg Sodium Chloride (0.9 % Sodium Chloride Flush 3 Ml Syringe) 3 ml IVFLUSH QSHIFT [facility] Last Admin: 08/27/23 07:25 Dose: Not Given Home Medications ?Medication ?Instructions ?Recorded ?Confirmed ?Last Taken ?Type gabapentin 100 mg capsule 100 mg PO BID PRN neuropathic pain 08/25/23 08/25/23 Unknown History omeprazole magnesium 20 mg 20 mg PO DAILY@0630 08/25/23 08/25/23 08/24/23 History capsule,delayed release Exam Height,Weight and Vital Signs: Height 6 ft 3 in Weight 106.2 kg Last Vital Signs Temp 98.4 F 08/27/23 13:06 Pulse 94 08/27/23 13:06 Resp 20 08/27/23 13:06 BP 168/91 H 08/27/23 13:06 Pulse Ox 96 08/27/23 13:06 O2 Del Method Room Air 08/27/23 13:06 Pertinent Lab Results Pertinent Lab Results: Laboratory Tests 08/25/23 08/25/23 08/25/23 10:47 12:42 12:55 WBC 19.8 H RBC 5.58 D Hgb 15.6 D Hct 46.1 D MCV 82.6 MCH 28.0 MCHC 33.8 RDW 13.7 Plt Count 435 H MPV 9.8 Immature Gran % (Auto) 0.5 H Neut % (Auto) 91.4 H Lymph % (Auto) 3.6 L [place] % (Auto) 4.1 Eos % (Auto) 0.0 Baso % (Auto) 0.4 Lymph # (Auto) 0.7 L [place] # (Auto) 0.8 Eos # (Auto) 0.0 Baso # (Auto) 0.1 Abs Immat Gran (auto) 0.10 H Absolute Neuts (auto) 18.1 H Absolute Nucleated RBC 0.000 Nucleated RBC % (auto) 0.0 Smear Tech's Comments VERIFIED Hold Purple Top Sodium 139 Potassium 4.6 Chloride 98 Carbon Dioxide 22 Anion Gap 24 H BUN 39 H Creatinine 2.57 H Estim Creat Clear Calc 41.2 Estimated GFR 26 POC Glucose Random Glucose 348 H Estimat Average Glucose Hemoglobin A1c % Lactic Acid 1.4 Calcium 9.8 D Total Bilirubin 0.3 Direct Bilirubin 0.2 AST 17 ALT 9 Alkaline Phosphatase 120 H Total Protein 7.8 Albumin 3.2 L Lipase 13 Urine Color Yellow Urine Appearance Cloudy Urine pH 6.0 Ur Specific [place] 1.025 Urine Protein >=1000 (4+) H Urine Glucose (UA) >=1000 H Urine Ketones Trace Urine Blood Moderate (2+) H Urine Nitrite Negative Ur Leukocyte Esterase Negative Urine RBC >20 H Urine WBC 0-5 Ur Squamous Epith Cells 0-2 Urine Bacteria None Seen Hyaline Casts 0-2 08/25/23 08/25/23 08/26/23 20:32 21:14 05:47 WBC 15.1 H RBC 4.87 Hgb 13.5 L Hct 41.6 L MCV 85.4 MCH 27.7 MCHC 32.5 RDW 14.1 Plt Count 352 MPV 10.0 Immature Gran % (Auto) Neut % (Auto) Lymph % (Auto) [place] % (Auto) Eos % (Auto) Baso % (Auto) Lymph # (Auto) [place] # (Auto) Eos # (Auto) Baso # (Auto) Abs Immat Gran (auto) Absolute Neuts (auto) Absolute Nucleated RBC 0.000 Nucleated RBC % (auto) 0.0 Smear Tech's Comments Hold Purple Top Sodium 141 142 Potassium 4.9 4.8 Chloride 103 106 Carbon Dioxide 24 24 Anion Gap 19 17 BUN 41 H 40 H Creatinine 2.70 H 2.72 H Estim Creat Clear Calc 39.3 39.0 Estimated GFR 24 24 POC Glucose 194 H Random Glucose 238 H 192 H Estimat Average Glucose 197 Hemoglobin A1c % 8.5 H Lactic Acid Calcium 9.0 D 9.0 Total Bilirubin Direct Bilirubin AST ALT Alkaline Phosphatase Total Protein Albumin Lipase Urine Color Urine Appearance Urine pH Ur Specific [place] Urine Protein Urine Glucose (UA) Urine Ketones Urine Blood Urine Nitrite Ur Leukocyte Esterase Urine RBC Urine WBC Ur Squamous Epith Cells Urine Bacteria Hyaline Casts 08/26/23 08/26/23 08/26/23 07:37 11:04 16:13 WBC RBC Hgb Hct MCV MCH MCHC RDW Plt Count MPV Immature Gran % (Auto) Neut % (Auto) Lymph % (Auto) [place] % (Auto) Eos % (Auto) Baso % (Auto) Lymph # (Auto) [place] # (Auto) Eos # (Auto) Baso # (Auto) Abs Immat Gran (auto) Absolute Neuts (auto) Absolute Nucleated RBC Nucleated RBC % (auto) Smear Tech's Comments Hold Purple Top Sodium Potassium Chloride Carbon Dioxide Anion Gap BUN Creatinine Estim Creat Clear Calc Estimated GFR POC Glucose 182 H 170 H 125 H Random Glucose Estimat Average Glucose Hemoglobin A1c % Lactic Acid Calcium Total Bilirubin Direct Bilirubin AST ALT Alkaline Phosphatase Total Protein Albumin Lipase Urine Color Urine Appearance Urine pH Ur Specific [place] Urine Protein Urine Glucose (UA) Urine Ketones Urine Blood Urine Nitrite Ur Leukocyte Esterase Urine RBC Urine WBC Ur Squamous Epith Cells Urine Bacteria Hyaline Casts 08/26/23 08/27/23 08/27/23 20:11 05:28 07:34 WBC RBC Hgb Hct MCV MCH MCHC RDW Plt Count MPV Immature Gran % (Auto) Neut % (Auto) Lymph % (Auto) [place] % (Auto) Eos % (Auto) Baso % (Auto) Lymph # (Auto) [place] # (Auto) Eos # (Auto) Baso # (Auto) Abs Immat Gran (auto) Absolute Neuts (auto) Absolute Nucleated RBC Nucleated RBC % (auto) Smear Tech's Comments Hold Purple Top SEE NOTE Sodium 143 Potassium 4.2 Chloride 107 Carbon Dioxide 27 Anion Gap 13 BUN 28 H Creatinine 1.91 H Estim Creat Clear Calc 55.5 Estimated GFR 36 POC Glucose 172 H 108 Random Glucose 109 Estimat Average Glucose Hemoglobin A1c % Lactic Acid Calcium 9.4 Total Bilirubin Direct Bilirubin AST ALT Alkaline Phosphatase Total Protein Albumin Lipase Urine Color Urine Appearance Urine pH Ur Specific [place] Urine Protein Urine Glucose (UA) Urine Ketones Urine Blood Urine Nitrite Ur Leukocyte Esterase Urine RBC Urine WBC Ur Squamous Epith Cells Urine Bacteria Hyaline Casts 08/27/23 08/27/23 10:59 13:03 WBC RBC Hgb Hct MCV MCH MCHC RDW Plt Count MPV Immature Gran % (Auto) Neut % (Auto) Lymph % (Auto) [place] % (Auto) Eos % (Auto) Baso % (Auto) Lymph # (Auto) [place] # (Auto) Eos # (Auto) Baso # (Auto) Abs Immat Gran (auto) Absolute Neuts (auto) Absolute Nucleated RBC Nucleated RBC % (auto) Smear Tech's Comments Hold Purple Top Sodium Potassium Chloride Carbon Dioxide Anion Gap BUN Creatinine Estim Creat Clear Calc Estimated GFR POC Glucose 150 H 158 H Random Glucose Estimat Average Glucose Hemoglobin A1c % Lactic Acid Calcium Total Bilirubin Direct Bilirubin AST ALT Alkaline Phosphatase Total Protein Albumin Lipase Urine Color Urine Appearance Urine pH Ur Specific [place] Urine Protein Urine Glucose (UA) Urine Ketones Urine Blood Urine Nitrite Ur Leukocyte Esterase Urine RBC Urine WBC Ur Squamous Epith Cells Urine Bacteria Hyaline Casts Airway Mallampati Class: I TM Dist: >3cm Neck ROM: Full Denture: Upper and Lower Heart: ok Lungs: ok Assessment and Plan Assessment Anesthesia Assessment: Anesthesia Plan Discussed and Chart Reviewed Final Anesthetic Review Family History of Problems with Anesthesia: No History of Problems with Anesthesia: No NPO: Yes ASA Class: III Final Preanesthetic Review: No Changes in Pt Med Stat, Meds/Allgs Chart Reviewed, Consent Obtained/Reviewed and Anes Risks/Benef Reviewed Patient Risk: Intermediate Procedure Risk: Intermediate Anesthetic Plan Anesthetic Plan: Agree w/ Assess. and Plan and TIVA Disposition: Standard PACU
--- NOTE | 2023-08-27 15:01 | P.BOP_ITS ---
Brief Operative Note Date of Service: 08/27/23 Pre-op diagnosis: abnl ct esophagus dysphagia Post-op diagnosis: same (erosive esophagitis) Surgeon: Stephon Cristina MD Anesthesia: MAC Was an Warehouse Packaging Supervisor used for this Procedure?: No Estimated blood loss (mL): 2 Pathology: other Condition: stable Disposition: PACU
--- NOTE | 2023-08-27 15:03 | PM.EVENT ---
Event Note Date of Service: 08/27/23 Event Note: EGD dictated erosive esophagitis, no mass mild gastritis, bx'd nl duodenum rec: bid ppi X 4 weeks (omeprazole 40 bid) then decrease to 40 mg daily repeat egd in 12 weeks. Time Spent With Patient Time: Total time managing care of this patient today ____ minutes.
[2023-08-27 16:26] LABS: Glucose, Whole Blood 127 mg/dL (60-115)
[2023-08-27] MEDS: Lactated Ringers 1,000 ML 100 ML IVCONT ×2 (19:00→23:35)
[2023-08-27] MEDS: Enoxaparin Sodium 40 MG/0.4 ML SYRINGE SUBCUT (19:41)
[2023-08-27 20:42] LABS: Glucose, Whole Blood 153 mg/dL (60-115)
[2023-08-27 21:56] LABS: Glucose, Whole Blood 159 mg/dL (60-115)
--- NOTE | 2023-08-27 22:11 | PM.EVENT ---
Event Note Date of Service: 08/27/23 Event Note: Was informed by the nurse that patient got lightheaded/dizzy in the bathroom. Orthostatics positive. Will order 1 L crystalloid bolus for orthostatic presyncope. No chest pain, nausea. Repeat orthostatics in a.m. Time Spent With Patient Time: Total time managing care of this patient today ____ minutes.
[2023-08-27] MEDS: 0.9 % Sodium Chloride 1,000 ML 999 ML IV (22:19)
--- NOTE | 2023-08-27 22:21 | PC.NURSE ---
pt in bathroom complaining of felling lightheaded/dizzy. T/w and CASH ROOM CLERK walk pt back to bed. Pt unsteady on feet. Once seated on the bed vitals obtained with BP 81/51 and HR 120 O2 98 on room air. Pt still complaining of lightheaded and dizziness, POC 159. Pt laid back into bed and vitals rechecked BP 113/68 and HR 103. Pt reports feeling better, less lightheaded and dizzy. Dr Aranda notified. 1L NS bolus ordered and hung.
--- NOTE | 2023-08-27 23:00 | PC.NURSE ---
Assumed care of patient at this time.
[2023-08-27] MEDS: 0.9 % Sodium Chloride Flush 3 ML SYRINGE IVFLUSH (23:36)
[2023-08-28] VITALS (8 sets, daily range): BP systolic 132–180; BP diastolic 73–100; PULSE 81–97; RESP 13–20; TEMP 36–36.2; O2SAT 97–98
[2023-08-28] MEDS: Pantoprazole Sodium 40 MG/10 ML VIAL IVPUSH (05:21)
[2023-08-28 06:25] LABS: Creatinine Urine 32.56 mg/dL
--- NOTE | 2023-08-28 06:29 | HO.WOUND ---
Wound Consult Request Patient seen for consultation and topical recommendations made on 08/26/23 - chart review reveals no new developments appears to be duplicate consult - confirmed topical order in place and viable to staff- will defer assessment to early next week for wound followup. No new topical recommendations made at this time and wound not assessed today. Topical wound care will continue to be carried out by direct care team.
[2023-08-28 06:42] LABS: Hematocrit 40.8 % (42.0-52.0); Hemoglobin 13.6 g/dl (14.0-18.0); Mean Corpuscular HGB Conc 33.3 g/dl (31.0-36.0); Mean Corpuscular Hemoglobin 28.1 pg (27.0-33.0); Mean Corpuscular Volume 84.3 fL (80.0-98.0); Mean Platelet Volume 9.6 fL (9.4-12.4); Platelet Count 305 X10*3/uL (160-400); Red Blood Count 4.84 X10*6/uL (4.60-5.80); Red Cell Distribution Width 13.5 % (11.0-16.0); White Blood Count 7.3 X10*3/uL (4.8-10.8)
[2023-08-28 06:47] LABS: Total Protein Urine Random 365 mg/dL (<12)
[2023-08-28 06:54] LABS: Anion Gap 14 (12-20); Blood Urea Nitrogen 20 mg/dL (9-16); Calcium 8.7 mg/dL (8.4-10.2); Carbon Dioxide 24 mmol/L (22-29); Chloride 106 mmol/L (96-108); Creatinine Clr Calc Pharmacy 61.6; Estimated Glomerular Filt Rate 41; Glucose Random 151 mg/dL (60-115); Sodium 140 mmol/L (135-145)
[2023-08-28 07:56] LABS: Glucose, Whole Blood 134 mg/dL (60-115)
[2023-08-28] MEDS: amLODIPine Besylate 10 MG TABLET PO (08:39)
[2023-08-28] MEDS: Lactated Ringers 1,000 ML 100 ML IVCONT ×2 (08:43→18:41)
[2023-08-28 11:19] LABS: Glucose, Whole Blood 221 mg/dL (60-115)
[2023-08-28] MEDS: Insulin Lispro 100 UNIT/ML 3 ML VIAL SUBCUT ×3 (11:34→20:44)
--- NOTE | 2023-08-28 11:37 | P.PNIM_ITS ---
Subjective Subjective Date of Service: 08/28/23 Interval History: Events from last night noted patient was lightheaded and dizzy in the bathroom, orthostatic blood pressures were positive patient received additional 1 L of fluids. Patient complaining of chronic dizziness that he notice every morning when he 1st gets up, denies associated weakness, no chest pain, no palpitations. Noted to have sinus tachycardia reviewed old record showed the patient had 1 episode of atrial fibrillation 03/2021 , was placed on Toprol and Xarelto due to chads vascular score of 2, patient stopped using medications, and never followed with Cardiology. Review of Systems All other system reviewed and negative Physical Exam 2 Vital Signs: Vital Signs: Last Vital Signs Temp 97.1 F 08/28/23 08:00 Pulse 90 08/28/23 08:00 Resp 20 08/28/23 08:00 BP 178/88 H 08/28/23 08:39 Pulse Ox 97 08/28/23 08:00 O2 Del Method Room Air 08/28/23 08:00 BMI result Body Mass Index 29.3 Const: Other: General resting comfortably in no acute distress. Neck supple no JVD. CVS regular rate rhythm, Respiratory lungs clear to auscultation, no respiratory distress, no wheeze, no rhonchi. Gastrointestinal abdomen soft, non tender, bowel sounds audible, no guarding , no rigidity. Extremities no edema. Neuro non focal . 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 Psych appropriate affect Objective Data Active Medications Acetaminophen (Acetaminophen 325 Mg Tablet) 650 mg PO Q6H PRN PRN Reason: Pain, Mild (Pain Scale 1-3) Amlodipine Besylate (Amlodipine Besylate 10 Mg Tablet) 10 mg PO DAILY [facility]; Protocol Last Admin: 08/28/23 08:39 Dose: 10 mg Documented By: DOBROB Benzonatate (Benzonatate 100 Mg Capsule) 100 mg PO TID PRN PRN Reason: Cough Docusate Sodium (Docusate Sodium 100 Mg Capsule) 100 mg PO DAILY PRN PRN Reason: Constipation Enoxaparin Sodium (Enoxaparin Sodium 40 Mg/0.4 Ml Syringe) 40 mg SUBCUT Q24H MICHELLE Last Admin: 08/27/23 19:41 Dose: 40 mg Documented By: AMAYA Gabapentin (Gabapentin 100 Mg Capsule) 100 mg PO BID PRN PRN Reason: neuropathic pain Glucose (Glucose Gel 15 Gm Gel..Gram.) 15 gm PO Q15M PRN; Protocol PRN Reason: per Hypoglycemia Standing Ord. Dextrose (D10) 250 mls @ 750 mls/hr IV Q15M PRN; Protocol PRN Reason: per Hypoglycemia Standing Ord. Lactated Ringer's (Lr) 1,000 mls @ 100 mls/hr IVCONT .Q10H [facility] Last Admin: 08/28/23 08:43 Dose: 100 mls/hr Documented By: CORINA Insulin Glargine (Insulin Glargine,Hum.Rec.Anlog 100 Unit/Ml 10 Ml Vial) 12 unit SUBCUT BEDTIME [facility] Last Admin: 08/26/23 20:19 Dose: 12 unit Documented By: REYNALDORISSwathi Insulin Human Lispro (Insulin Lispro 100 Unit/Ml 3 Ml Vial) 0 unit SUBCUT QIDACHS [facility]; Protocol Last Admin: 08/28/23 11:34 Dose: 4 unit Documented By: TAWANA Melatonin (Melatonin 3 Mg Tablet) 6 mg PO BEDTIME PRN PRN Reason: Insomnia Omeprazole (Omeprazole 40 Mg Capsule.Dr) 40 mg PO BID@0630,1630 [facility] Ondansetron HCl (Ondansetron Hcl 4 Mg/2 Ml Vial) 4 mg IVPUSH Q8H PRN PRN Reason: Nausea and Vomiting Last Admin: 08/26/23 07:56 Dose: 4 mg Documented By: JAMESON Sodium Chloride (0.9 % Sodium Chloride Flush 3 Ml Syringe) 3 ml IVFLUSH QSHIFT [facility] Last Admin: 08/28/23 08:40 Dose: Not Given Documented By: CORINA Non-Admin Reason: IV Running Labs 08/28/23 05:50 08/28/23 05:50 Labs: Laboratory Results - last 24 hr 08/27/23 08/27/23 08/27/23 13:03 16:21 20:30 MCV MCH MCHC RDW Plt Count MPV Absolute Nucleated RBC Nucleated RBC % (auto) Anion Gap Estim Creat Clear Calc Estimated GFR POC Glucose 158 H 127 H 153 H Random Glucose Calcium U Random Total Protein Urine Creatinine 08/27/23 08/28/23 08/28/23 21:52 05:19 05:50 MCV 84.3 MCH 28.1 MCHC 33.3 RDW 13.5 Plt Count 305 MPV 9.6 Absolute Nucleated RBC 0.000 Nucleated RBC % (auto) 0.0 Anion Gap 14 Estim Creat Clear Calc 61.6 Estimated GFR 41 POC Glucose 159 H Random Glucose 151 H Calcium 8.7 D U Random Total Protein 365 H Urine Creatinine 32.56 08/28/23 08/28/23 07:52 11:16 MCV MCH MCHC RDW Plt Count MPV Absolute Nucleated RBC Nucleated RBC % (auto) Anion Gap Estim Creat Clear Calc Estimated GFR POC Glucose 134 H 221 H Random Glucose Calcium U Random Total Protein Urine Creatinine Microbiology Microbiology Results: Microbiology 08/25/23 12:47 Blood Culture - Preliminary Blood - Venous No growth after 48 hours. 08/25/23 12:42 Blood Culture - Preliminary Blood - Venous No growth after 48 hours. Assessment and Plan (1) Intractable vomiting: Status: Acute (2) Esophagitis: Status: Acute (3) Acute kidney injury: Status: Acute Plan 58-year-old male with a PMH significant for?paroxysmal AFib no longer on anticoagulation, HTN, HLD, insulin-dependent type 2 diabetes, peripheral neuropathy, and hx of osteomyelitis secondary to chronic diabetic foot ulcers who presents to the ED with?intermittent nausea and vomiting for the past 3 weeks. Pt will be admitted to the hospital for treatment and further evaluation of esophagitis and IRAIDA in the setting of intractable nausea and vomiting and reduced p.o. intake. Intractable nausea vomiting x3 weeks No further nausea vomiting, no abdominal pain or diarrhea. Unclear etiology: CT of abd/pelvis showed wall thickening of distal thoracic esophagus. Underwent upper endoscopy 08/26 that showed erosive esophagitis, no mass,mild gastritis, bx'd, nl duodenum GI recommend omeprazole 40 mg b.i.d. x4 weeks then decrease to 40 mg daily, repeat upper endoscopy in 12 weeks to be arranged by Dr. Cristina IRAIDA Creatinine 2.57 at time of presentation, bumped to 2.72, now trending down 1.91 >1.72 Likely prerenal continue IV fluids ,Follow BMP Being followed by Nephrology Dizziness/orthostatic hypotension with history of hypertension On Norvasc 10 mg daily at home Will add Toprol-XL 50 mg daily and reduce dose of Norvasc 5 mg daily likely causing orthostatic BP is Placed on media monitor to rule out underlying atrial fibrillation, check TSH Follow orthostatic BP History of atrial fibrillation Was diagnosed 04/13/2021 was placed on Xarelto and beta-blockers however patient stop both medications and never followed up with Cardiology he denies chest pain, palpitations Placed on media monitor as above. Leukocytosis WBC 19.8 at time of presentation, improved to 7.3 Likely reactionary to N/V No clear source of infection: CXR negative; CT of abd/pelvis only showing esophagitis; UA negative for UTI Non-insullin dependent type 2 diabetes with hyperglycemia Stopped Lantus long time ago since he noted to have normal blood sugars, was taking metformin Blood sugars improved to less than 200 A1c 8.5, Lantus held yesterday since patient was NPO, continue Lantus 12 units at bedtime, continue insulin sliding scale and Diabetic diet Will need diabetic supplies at discharge, patient knows how to administer Lantus Diabetic neuropathy Continue gabapentin prn Chronic diabetic right plantar foot wounds seen by wound nurse continue wound care, and recommend outpatient follow-up with wound clinic Full Code DVT Prophylaxis: Lovenox Pt will require continued inpatient hospitalization for treatment of?IRAIDA and esophagitis on IV fluids, close monitoring of labs, and specialist consultation with Gastroenterology and Nephrology. PCP Dr. Félix Carlton patient does not follow regularly with PCP Quality Stroke Does the patient have a stroke diagnosis?: No VTE Prior VTE?: No VTE Risk Level:: Medical - moderate - high VTE Device Contraindication: Treatment Not Indicated VTE Drug Contraindication: N/A - Med Ordered
[2023-08-28] MEDS: Metoprolol Succinate ER 50 MG TAB.ER.24H PO (12:42)
[2023-08-28] MEDS: Docusate Sodium 100 MG CAPSULE 200 MG PO (12:42)
--- NOTE | 2023-08-28 14:28 | OP_ITS ---
DATE OF SERVICE: 08/27/2023 SURGEON: Stephon Cristina MD INDICATIONS: Dysphagia, abnormal CT scan of the esophagus. PREOPERATIVE DIAGNOSIS: POSTOPERATIVE DIAGNOSIS: PROCEDURE PERFORMED: Upper endoscopy with biopsy. ESTIMATED BLOOD LOSS: COMPLICATIONS: ANESTHESIA: Monitored anesthesia care. ASSISTANTS: SPECIMENS: DESCRIPTION OF PROCEDURE: A history and physical was performed. The risks and benefits of the procedure were explained to the patient and informed consent was obtained. The patient was placed in the left lateral decubitus position. The Olympus video gastroscope was introduced into the esophagus, stomach, and duodenum. Examination was performed and the scope was removed. He tolerated the procedure well and was returned to recovery area in stable condition. FINDINGS: Esophagus: There was severe erosive esophagitis extending from the EG junction at 40 cm to approximately 27 cm. The esophageal mucosa above this appeared relatively normal. There was no bleeding and no mass lesion was identified. Stomach: The stomach showed linear streaks of erythema consistent with gastritis. Biopsies were obtained from the antrum to evaluate for H pylori. Duodenum: The bulb and 2nd portion were normal. IMPRESSION: Erosive esophagitis, gastritis. RECOMMENDATIONS: 1. Continue high-dose proton pump inhibitor (omeprazole 40 mg b.i.d.) x1 month, then decrease dose to 40 mg daily. 2. Discontinue tobacco use. 3. He should have repeat upper endoscopy in approximately 3 months for reassessment of erosive esophagitis to document healing and assess for any underlying [place] esophagus. MD SYLVIA Reynoso/TERAL / [phone]
--- NOTE | 2023-08-28 14:50 | HO.POSTANES ---
Post Anesthesia Evaluation Post Anesthesia Evaluation Date of Service: 08/28/23 Vital Signs: Vital Signs Temp Pulse Resp BP Pulse Ox O2 Del Method 08/28/23 14:39 97 Room Air 08/28/23 12:42 97 132/79 08/28/23 11:55 98 Room Air 08/28/23 08:39 178/88 H 08/28/23 08:00 97.1 F 90 20 178/88 H 97 Room Air 08/28/23 03:36 97.1 F 93 16 180/100 H 97 Room Air Anesthesia: TIVA Mental Status: Awake Pain Control: Satisfactory Nausea/Vomiting: None Hydration: Adequate Anesthesia-Related Issues: No Anes. Related Issues
--- NOTE | 2023-08-28 14:55 | P.CDIM_ITS ---
PROVIDER RESPONSE TEXT: To clarify, the appropriate diagnosis supported by the clinical indicators: Other (explain): hussein QUERY TEXT: PHYSICIAN'S DOCUMENTATION REQUEST Date of Query: 08/27/2023 11:03 AM EDT Patient Name: Silvestre Stallings Admit Date: 08/25/2023 Dear Miki Simental, A review of the medical record indicates additional documentation may be needed. Please review below and update the documentation accordingly. Clinical Indicators: Per Nephrology Progress Note 08/27/23, CKD most likely due to Hypertensive diabetic kidney disease 08/27/23: BUN 28, creatinine 1.91, Est GFR 36 Please clarify which of the following accurately represents the patient's renal status: CKD, please provide stage Other (explain) Clinically unable to determine (explain) Thank you, Mona Lipscomb RN Use of terms such as suspected, likely, concern for, or probable (associated with a specific diagnosi s that is being evaluated, monitored, or treated as if it exists) are acceptable and can be coded in the inpatient se tting, when documented at the time of discharge. Please use your independent medical judgment in providing your response. THIS QUERY IS PART OF THE PERMANENT MEDICAL RECORD
--- NOTE | 2023-08-28 16:00 | MHC.CM.PN ---
EMR REVIEWED, PT REMAINS ORTHOSTATIC, RECEIVING IV FLUIDS AND EGD, NO PLAN FOR DC, ANTIC PT WILL BE MEDICALLY CLEARED TOMORROW 08/28, CM WILL CONT TO FOLLOW DC NEEDS.
[2023-08-28 16:16] LABS: Glucose, Whole Blood 179 mg/dL (60-115)
[2023-08-28] MEDS: Omeprazole 40 MG CAPSULE.DR PO (17:12)
[2023-08-28 19:48] LABS: Glucose, Whole Blood 152 mg/dL (60-115)
[2023-08-28] MEDS: Enoxaparin Sodium 40 MG/0.4 ML SYRINGE SUBCUT (20:44)
[2023-08-28] MEDS: 0.9 % Sodium Chloride Flush 3 ML SYRINGE IVFLUSH (20:45)
[2023-08-28] MEDS: Insulin Glargine,Hum.rec.anlog 100 UNIT/ML 10 ML VIAL 12 UNIT SUBCUT (21:16)
--- NOTE | 2023-08-28 21:40 | P.PNNP_ITS ---
Subjective Subjective Date of Service: 08/28/23 Interval history: Events noted ; patient was lightheaded and dizzy in the bathroom, orthostatic blood pressures were positive patient received additional 1 L of fluids. All recent data reviewed. Renal function improving Physical Exam 2 Vital Signs: Vital Signs: Last Vital Signs Temp 96.8 F 08/28/23 19:39 Pulse 82 08/28/23 19:39 Resp 13 08/28/23 19:39 BP 153/73 H 08/28/23 19:39 Pulse Ox 97 08/28/23 19:39 O2 Del Method Room Air 08/28/23 19:39 BMI result Body Mass Index 29.3 Const: General: no acute distress Eyes: EOM: EOMs intact bilaterally Neck: Neck: Yes supple Resp: Auscultation: diminished lung sounds Cardio: Jugular venous distension: no JVD GI: Palpation (GI): Soft to palpation Neuro: General: moves all extremities Objective Data Labs 08/28/23 05:50 08/28/23 05:50 Labs: Laboratory Results - last 24 hr 08/27/23 08/28/23 08/28/23 21:52 05:19 05:50 WBC 7.3 RBC 4.84 Hgb 13.6 L Hct 40.8 L MCV 84.3 MCH 28.1 MCHC 33.3 RDW 13.5 Plt Count 305 MPV 9.6 Absolute Nucleated RBC 0.000 Nucleated RBC % (auto) 0.0 Sodium 140 Potassium 4.0 Chloride 106 Carbon Dioxide 24 Anion Gap 14 BUN 20 H Creatinine 1.72 H Estim Creat Clear Calc 61.6 Estimated GFR 41 POC Glucose 159 H Random Glucose 151 H Calcium 8.7 D U Random Total Protein 365 H Urine Creatinine 32.56 08/28/23 08/28/23 08/28/23 07:52 11:16 16:12 WBC RBC Hgb Hct MCV MCH MCHC RDW Plt Count MPV Absolute Nucleated RBC Nucleated RBC % (auto) Sodium Potassium Chloride Carbon Dioxide Anion Gap BUN Creatinine Estim Creat Clear Calc Estimated GFR POC Glucose 134 H 221 H 179 H Random Glucose Calcium U Random Total Protein Urine Creatinine 08/28/23 19:43 WBC RBC Hgb Hct MCV MCH MCHC RDW Plt Count MPV Absolute Nucleated RBC Nucleated RBC % (auto) Sodium Potassium Chloride Carbon Dioxide Anion Gap BUN Creatinine Estim Creat Clear Calc Estimated GFR POC Glucose 152 H Random Glucose Calcium U Random Total Protein Urine Creatinine Microbiology Microbiology Results: Microbiology 08/25/23 12:47 Blood - Venous Blood Culture - Preliminary No growth after 48 hours. 08/25/23 12:42 Blood - Venous Blood Culture - Preliminary No growth after 48 hours. Procedures Date of Service Date of Service: 08/28/23 Assessment & Plan Assessment and plan (1) Acute kidney injury: Status: Acute Plan IRAIDA due to tubular injury No reason to suspect GN/AIN/Obstruction Serum creatinine improving C/W current supportive care for now Labs AM; Shall closely follow up Progress Note: Quality Stroke Does the patient have a stroke diagnosis?: No
[2023-08-29] VITALS (11 sets, daily range): BP systolic 93–181; BP diastolic 67–99; PULSE 71–97; RESP 14–18; TEMP 35.9–36.5; O2SAT 95–98
--- NOTE | 2023-08-29 00:43 | MHC.PIE ---
p; tele shows pt converted from sinu rhythm to afib and back to sinus rhythm i; dr hadley notified e; will cont to monitor
[2023-08-29] MEDS: Lactated Ringers 1,000 ML 100 ML IVCONT ×3 (03:18→19:51)
[2023-08-29] MEDS: Omeprazole 40 MG CAPSULE.DR PO ×2 (05:30→16:53)
[2023-08-29 06:16] LABS: Anion Gap 10 (12-20); Blood Urea Nitrogen 18 mg/dL (9-16); Calcium 8.5 mg/dL (8.4-10.2); Carbon Dioxide 29 mmol/L (22-29); Chloride 101 mmol/L (96-108); Creatinine Clr Calc Pharmacy 71.7; Estimated Glomerular Filt Rate 49; Glucose Random 172 mg/dL (60-115); Potassium 3.1 mmol/L (3.3-5.1); Sodium 137 mmol/L (135-145)
[2023-08-29 06:31] LABS: Thyroid Stimulating Hormone 0.79 uIU/mL (0.32-4.0)
[2023-08-29 07:28] LABS: Glucose, Whole Blood 153 mg/dL (60-115)
[2023-08-29] MEDS: polyethylene glycoL 3350 17 GM POWD.PACK PO (08:16)
[2023-08-29] MEDS: Insulin Lispro 100 UNIT/ML 3 ML VIAL SUBCUT ×4 (08:16→19:53)
[2023-08-29] MEDS: Metoprolol Succinate ER 50 MG TAB.ER.24H PO (08:16)
[2023-08-29] MEDS: amLODIPine Besylate 5 MG TABLET PO (08:16)
[2023-08-29] MEDS: Potassium Chloride/H20 10 MEQ/100 ML PIGGYBACK 100 MEQ IV ×4 (08:53→12:01)
[2023-08-29 09:19] LABS: Magnesium 1.1 mg/dL (1.6-2.6)
--- NOTE | 2023-08-29 10:34 | P.PNNP_ITS ---
Subjective Subjective Date of Service: 08/29/23 Interval history: Events noted Renal function continues to improve. Physical Exam 2 Vital Signs: Vital Signs: Last Vital Signs Temp 96.8 F 08/29/23 07:41 Pulse 97 08/29/23 10:18 Resp 18 08/29/23 07:41 BP 93/67 08/29/23 10:18 Pulse Ox 95 08/29/23 07:41 O2 Del Method Room Air 08/29/23 07:41 BMI result Body Mass Index 29.3 Const: General: comfortable Nutritional Appearance: well nourished O rientation/consciousness: patient oriented x3 HEENT: Head: No normal to inspection Mouth: moist mucous membranes Neck: Neck: Yes supple and Yes no JVD Resp: Auscultation: clear to auscultation bilaterally, no rales and rub present Cardio: Jugular venous distension: no JVD Palpation: no palpable S3 and no palpable S4 Heart sounds: no rubs GI: Palpation (GI): Soft to palpation and nontender Percussion: No Fluid wave present : General: Yes no CVA tenderness Back/Spine/Pelvis: Back: no CVA tenderness Skin: General skin exam: no rashes or lesions noted Neuro: General: patient oriented x3 Extrem: Other: Amputation of toe in foot ulcers seen General: Yes no pedal edema and No clubbing Objective Data Labs 08/28/23 05:50 08/29/23 05:22 Labs: Laboratory Results - last 24 hr 08/28/23 08/28/23 08/28/23 11:16 16:12 19:43 Hold Purple Top Sodium Potassium Chloride Carbon Dioxide Anion Gap BUN Creatinine Estim Creat Clear Calc Estimated GFR POC Glucose 221 H 179 H 152 H Random Glucose Calcium Magnesium TSH 08/29/23 08/29/23 05:22 07:24 Hold Purple Top SEE NOTE Sodium 137 Potassium 3.1 L D Chloride 101 Carbon Dioxide 29 Anion Gap 10 L BUN 18 H Creatinine 1.48 H Estim Creat Clear Calc 71.7 Estimated GFR 49 POC Glucose 153 H Random Glucose 172 H Calcium 8.5 Magnesium 1.1 L* TSH 0.79 Microbiology Microbiology Results: Microbiology 08/25/23 12:47 Blood - Venous Blood Culture - Preliminary No growth after 48 hours. 08/25/23 12:42 Blood - Venous Blood Culture - Preliminary No growth after 48 hours. Procedures Date of Service Date of Service: 08/29/23 Assessment & Plan Assessment and plan (1) Acute kidney injury: Status: Acute Plan 58-year-old man with acute kidney injury in a setting of longstanding diabetes mellitus and hypertension. Silvestre has underlying chronic kidney disease most likely due to hypertensive diabetic kidney disease. He hsustained acute kidney injury. Due to hypoperfusion. Recommendations Continue to keep intake more than output Watch renal function over the next several days. Continue to avoid nephrotoxic agents. will follow along with the team Time Spent With Patient Time: Total time managing care of this patient today ____ minutes. Progress Note: Quality Stroke Does the patient have a stroke diagnosis?: No
[2023-08-29] MEDS: Magnesium Oxide 400 MG TABLET PO ×2 (10:58→16:53)
[2023-08-29] MEDS: Magnesium Sulfate/H2O 2 GM/50 ML PIGGYBACK IV (10:58)
[2023-08-29 11:12] LABS: Glucose, Whole Blood 217 mg/dL (60-115)
[2023-08-29 16:07] LABS: Glucose, Whole Blood 220 mg/dL (60-115)
--- NOTE | 2023-08-29 16:15 | P.PNIM_ITS ---
Subjective Subjective Date of Service: 08/29/23 Interval History: N/V resolved tolerating diet Cr improving K + Mg low Review of Systems Review of Systems: Yes all other systems are reviewed and are negative Physical Exam 2 Vital Signs: Vital Signs: Last Vital Signs Temp 97.7 F 08/29/23 15:26 Pulse 81 08/29/23 15:26 Resp 18 08/29/23 15:26 BP 93/67 08/29/23 10:18 Pulse Ox 98 08/29/23 15:26 O2 Del Method Room Air 08/29/23 15:26 BMI result Body Mass Index 29.3 Gen: in no acute distress HEENT: sclera anicteric, moist mucus membranes Neck: supple Lungs: clear to auscultation bilaterally Heart: regular rate and rhythm, no murmurs Abd: soft, non-tender, non-distended Ext: no edema Skin: warm/well-perfused, s/p R 5th toe amputation Neuro: alert and oriented x3, no focal findings Psych: appropriate affect Objective Data Active Medications Acetaminophen (Acetaminophen 325 Mg Tablet) 650 mg PO Q6H PRN PRN Reason: Pain, Mild (Pain Scale 1-3) Amlodipine Besylate (Amlodipine Besylate 5 Mg Tablet) 5 mg PO DAILY [facility]; Protocol Last Admin: 08/29/23 08:16 Dose: 5 mg Documented By: SIDDHARTH Benzonatate (Benzonatate 100 Mg Capsule) 100 mg PO TID PRN PRN Reason: Cough Docusate Sodium (Docusate Sodium 100 Mg Capsule) 100 mg PO DAILY PRN PRN Reason: Constipation Enoxaparin Sodium (Enoxaparin Sodium 40 Mg/0.4 Ml Syringe) 40 mg SUBCUT Q24H [facility] Last Admin: 08/28/23 20:44 Dose: 40 mg Documented By: SANDHYA Gabapentin (Gabapentin 100 Mg Capsule) 100 mg PO BID PRN PRN Reason: neuropathic pain Glucose (Glucose Gel 15 Gm Gel..Gram.) 15 gm PO Q15M PRN; Protocol PRN Reason: per Hypoglycemia Standing Ord. Dextrose (D10) 250 mls @ 750 mls/hr IV Q15M PRN; Protocol PRN Reason: per Hypoglycemia Standing Ord. Lactated Ringer's (Lr) 1,000 mls @ 100 mls/hr IVCONT .Q10H [facility] Last Infusion: 08/29/23 10:58 Dose: Infused Documented By: SIDDHARTH Insulin Glargine (Insulin Glargine,Hum.Rec.Anlog 100 Unit/Ml 10 Ml Vial) 12 unit SUBCUT BEDTIME [facility] Last Admin: 08/28/23 21:16 Dose: 12 unit Documented By: SANDHYA Insulin Human Lispro (Insulin Lispro 100 Unit/Ml 3 Ml Vial) 0 unit SUBCUT QIDACHS [facility]; Protocol Last Admin: 08/29/23 11:45 Dose: 4 unit Documented By: SIDDHARTH Magnesium Oxide (Magnesium Oxide 400 Mg Tablet) 400 mg PO BIDPC [facility] Last Admin: 08/29/23 10:58 Dose: 400 mg Documented By: SIDDHARTH Melatonin (Melatonin 3 Mg Tablet) 6 mg PO BEDTIME PRN PRN Reason: Insomnia Metoprolol Succinate (Metoprolol Succinate Er 50 Mg Tab.Er.24h) 50 mg PO DAILY [facility]; Protocol Last Admin: 08/29/23 08:16 Dose: 50 mg Documented By: SIDDHARTH Omeprazole (Omeprazole 40 Mg Capsule.) 40 mg PO BID@0630,1630 [facility] Last Admin: 08/29/23 05:30 Dose: 40 mg Documented By: SANDHYA Ondansetron HCl (Ondansetron Hcl 4 Mg/2 Ml Vial) 4 mg IVPUSH Q8H PRN PRN Reason: Nausea and Vomiting Last Admin: 08/26/23 07:56 Dose: 4 mg Documented By: JAMESON Polyethylene Glycol (Polyethylene Glycol 3350 17 Gm Powd.Pack) 17 gm PO DAILY [facility] Last Admin: 08/29/23 08:16 Dose: 17 gm Documented By: SIDDHARTH Sodium Chloride (0.9 % Sodium Chloride Flush 3 Ml Syringe) 3 ml IVFLUSH QSHIFT [facility] Last Admin: 08/29/23 14:19 Dose: Not Given Documented By: SIDDHARTH Non-Admin Reason: IV Running Labs 08/28/23 05:50 08/29/23 05:22 Labs: Laboratory Results - last 24 hr 08/28/23 08/28/23 08/29/23 16:12 19:43 05:22 Hold Purple Top SEE NOTE Anion Gap 10 L Estim Creat Clear Calc 71.7 Estimated GFR 49 POC Glucose 179 H 152 H Random Glucose 172 H Calcium 8.5 Magnesium 1.1 L* TSH 0.79 08/29/23 08/29/23 08/29/23 07:24 11:08 16:03 Hold Purple Top Anion Gap Estim Creat Clear Calc Estimated GFR POC Glucose 153 H 217 H 220 H Random Glucose Calcium Magnesium TSH Assessment and Plan (1) Intractable vomiting: Status: Acute (2) Esophagitis: Status: Acute (3) Acute kidney injury: Status: Acute Plan d5 58yo M with pAF not on AC, HTN, HLD, DM2, peripheral neuropathy, hx osteomyelitis due to chronic DFU presenting with 3 wk of N/V, found to have IRAIDA prerenal IRAIDA - improving with IV fluids, Nephrology following, repeat BMP in AM intractable N/V - EGD 08/26 with erosive esophagitis, no mass, mild gastritis; biopsies taken; per GI [Dr Cristina] omeprazole 40 mg bid x4wk then 40 mg daily, repeat EGD in 12 wk hypoK - replete IV, recheck in AM hypoMg - replete IV/PO, recheck in AM HTN - on amlodipine + metoprolol succinate; amlodipine dose decreased due to orthostasis orthostatic hypotension - still orthostatic- continue IV fluids and decrease amlodipine further hx AF diagnosed 04/13/21 - previously on beta-blockers + Xarelto but pt stopped and never followed up with Cardiology - no AF on cardiac monitoring currently leukocytosis - resolved, likely due to N/V, no clear source of infection DM2, A1c 8.5 - basal-bolus insulin DM neuropathy - gabapentin chronic diabetic foot wounds - per Wound Care: Right Plantar - Cleanse and irrigate with NS, pat dry. Lightly pack wound bed with Durafiber AG. Apply Vaseline to periwound and thick callused tissue to allow thick tissue to soften for removal at next washing. Change Daily. Recommend follow up out patient Wound Clinic VTE ppx - LMWH dispo - PT consulted, recommend home with VNA In my clinical judgment, the patient requires continued inpatient hospitalization for the following reasons: IRAIDA, IV fluids, hypoMg, IV electrolytes Total time managing care of this patient today: 35 minutes. Quality Stroke Does the patient have a stroke diagnosis?: No VTE Prior VTE?: No VTE Risk Level:: Medical - moderate - high VTE Device Contraindication: Treatment Not Indicated VTE Drug Contraindication: N/A - Med Ordered
[2023-08-29 19:46] LABS: Glucose, Whole Blood 190 mg/dL (60-115)
[2023-08-29] MEDS: Enoxaparin Sodium 40 MG/0.4 ML SYRINGE SUBCUT (19:52)
[2023-08-29] MEDS: Insulin Glargine,Hum.rec.anlog 100 UNIT/ML 10 ML VIAL 12 UNIT SUBCUT (19:53)
[2023-08-29] MEDS: 0.9 % Sodium Chloride Flush 3 ML SYRINGE IVFLUSH (19:54)
[2023-08-29 21:09] LABS: Myeloperoxidase Antibody <1.0 AI; Proteinase 3 PR3 Antibodies <1.0 AI
[2023-08-29 22:48] LABS: Complement C3 172 mg/dL (82-185)
[2023-08-30] VITALS (10 sets, daily range): BP systolic 114–159; BP diastolic 56–81; PULSE 80–84; RESP 16–20; TEMP 36.1–36.3; O2SAT 96–97
[2023-08-30] MEDS: Lactated Ringers 1,000 ML 100 ML IVCONT ×3 (04:20→22:41)
[2023-08-30] MEDS: Omeprazole 40 MG CAPSULE.DR PO ×2 (04:47→16:47)
[2023-08-30 08:06] LABS: Glucose, Whole Blood 156 mg/dL (60-115)
[2023-08-30] MEDS: Metoprolol Succinate ER 50 MG TAB.ER.24H PO (08:27)
[2023-08-30] MEDS: Insulin Lispro 100 UNIT/ML 3 ML VIAL SUBCUT ×4 (08:27→21:30)
[2023-08-30] MEDS: amLODIPine Besylate 2.5 MG TABLET PO (08:27)
[2023-08-30] MEDS: polyethylene glycoL 3350 17 GM POWD.PACK PO (08:28)
[2023-08-30] MEDS: Magnesium Oxide 400 MG TABLET PO (08:28)
[2023-08-30 08:34] LABS: Anion Gap 12 (12-20); Blood Urea Nitrogen 14 mg/dL (9-16); Calcium 7.9 mg/dL (8.4-10.2); Carbon Dioxide 26 mmol/L (22-29); Chloride 101 mmol/L (96-108); Creatinine Clr Calc Pharmacy 74.7; Estimated Glomerular Filt Rate 51; Glucose Random 154 mg/dL (60-115); Sodium 136 mmol/L (135-145)
[2023-08-30 08:38] LABS: Magnesium 1.2 mg/dL (1.6-2.6)
[2023-08-30] MEDS: Magnesium Sulfate/H2O 2 GM/50 ML PIGGYBACK IV (08:51)
[2023-08-30] MEDS: Potassium Chloride Packet 20 MEQ PACKET 40 MEQ PO (08:51)
--- NOTE | 2023-08-30 10:45 | P.PNIM_ITS ---
Subjective Subjective Date of Service: 08/30/23 Interval History: denies dizziness no N/V, tolerating diet orthostatics still positive K + Mg still low Review of Systems Review of Systems: Yes all other systems are reviewed and are negative Physical Exam 2 Vital Signs: Vital Signs: Last Vital Signs Temp 97.0 F 08/30/23 04:00 Pulse 81 08/30/23 10:16 Resp 16 08/30/23 04:00 BP 159/81 H 08/30/23 10:16 Pulse Ox 97 08/30/23 04:00 O2 Del Method Room Air 08/30/23 04:00 BMI result Body Mass Index 29.3 Gen: in no acute distress HEENT: sclera anicteric, moist mucus membranes Neck: supple Lungs: clear to auscultation bilaterally Heart: regular rate and rhythm, no murmurs Abd: soft, non-tender, non-distended Ext: no edema Skin: warm/well-perfused, s/p R 5th toe amputation Neuro: alert and oriented x3, no focal findings Psych: appropriate affect Objective Data Active Medications Acetaminophen (Acetaminophen 325 Mg Tablet) 650 mg PO Q6H PRN PRN Reason: Pain, Mild (Pain Scale 1-3) Amlodipine Besylate (Amlodipine Besylate 2.5 Mg Tablet) 2.5 mg PO DAILY [facility]; Protocol Last Admin: 08/30/23 08:27 Dose: 2.5 mg Documented By: SIDDHARTH Benzonatate (Benzonatate 100 Mg Capsule) 100 mg PO TID PRN PRN Reason: Cough Docusate Sodium (Docusate Sodium 100 Mg Capsule) 100 mg PO DAILY PRN PRN Reason: Constipation Enoxaparin Sodium (Enoxaparin Sodium 40 Mg/0.4 Ml Syringe) 40 mg SUBCUT Q24H [facility] Last Admin: 08/29/23 19:52 Dose: 40 mg Documented By: SANDHYA Gabapentin (Gabapentin 100 Mg Capsule) 100 mg PO BID PRN PRN Reason: neuropathic pain Glucose (Glucose Gel 15 Gm Gel..Gram.) 15 gm PO Q15M PRN; Protocol PRN Reason: per Hypoglycemia Standing Ord. Dextrose (D10) 250 mls @ 750 mls/hr IV Q15M PRN; Protocol PRN Reason: per Hypoglycemia Standing Ord. Lactated Ringer's (Lr) 1,000 mls @ 100 mls/hr IVCONT .Q10H [facility] Last Admin: 08/30/23 04:20 Dose: 100 mls/hr Documented By: SANDHYA Insulin Glargine (Insulin Glargine,Hum.Rec.Anlog 100 Unit/Ml 10 Ml Vial) 12 unit SUBCUT BEDTIME [facility] Last Admin: 08/29/23 19:53 Dose: 12 unit Documented By: SANDHYA Insulin Human Lispro (Insulin Lispro 100 Unit/Ml 3 Ml Vial) 0 unit SUBCUT QIDACHS [facility]; Protocol Last Admin: 08/30/23 08:27 Dose: 2 unit Documented By: SIDDHARTH Magnesium Oxide (Magnesium Oxide 400 Mg Tablet) 800 mg PO BIDPC [facility] Melatonin (Melatonin 3 Mg Tablet) 6 mg PO BEDTIME PRN PRN Reason: Insomnia Metoprolol Succinate (Metoprolol Succinate Er 50 Mg Tab.Er.24h) 50 mg PO DAILY [facility]; Protocol Last Admin: 08/30/23 08:27 Dose: 50 mg Documented By: SIDDHARTH Omeprazole (Omeprazole 40 Mg Capsule.Dr) 40 mg PO BID@0630,1630 [facility] Last Admin: 08/30/23 04:47 Dose: 40 mg Documented By: SANDHYA Ondansetron HCl (Ondansetron Hcl 4 Mg/2 Ml Vial) 4 mg IVPUSH Q8H PRN PRN Reason: Nausea and Vomiting Last Admin: 08/26/23 07:56 Dose: 4 mg Documented By: JAMESON Polyethylene Glycol (Polyethylene Glycol 3350 17 Gm Powd.Pack) 17 gm PO DAILY [facility] Last Admin: 08/30/23 08:28 Dose: 17 gm Documented By: SIDDHARTH Sodium Chloride (0.9 % Sodium Chloride Flush 3 Ml Syringe) 3 ml IVFLUSH QSHIFT [facility] Last Admin: 08/30/23 08:30 Dose: Not Given Documented By: SIDDHARTH Non-Admin Reason: IV Running Labs 08/28/23 05:50 08/30/23 07:12 Labs: Laboratory Results - last 24 hr 08/28/23 08/29/23 08/29/23 05:50 11:08 16:03 Hold Purple Top Anion Gap Estim Creat Clear Calc Estimated GFR POC Glucose 217 H 220 H Random Glucose Calcium Magnesium Proteinase 3 (PR3) Ab <1.0 Myeloperoxidase Ab <1.0 Complement C3 172 Complement C4 47 08/29/23 08/30/23 08/30/23 19:37 07:12 08:02 Hold Purple Top SEE NOTE Anion Gap 12 Estim Creat Clear Calc 74.7 Estimated GFR 51 POC Glucose 190 H 156 H Random Glucose 154 H Calcium 7.9 L D Magnesium 1.2 L* Proteinase 3 (PR3) Ab Myeloperoxidase Ab Complement C3 Complement C4 Assessment and Plan (1) Intractable vomiting: Status: Acute (2) Esophagitis: Status: Acute (3) Acute kidney injury: Status: Acute Plan d6 58yo M with pAF not on AC, HTN, HLD, DM2, peripheral neuropathy, hx osteomyelitis due to chronic DFU presenting with 3 wk of N/V, found to have IRAIDA prerenal IRAIDA - improved with IV fluids, Nephrology following, repeat BMP in AM intractable N/V - EGD 08/26 with erosive esophagitis, no mass, mild gastritis; biopsies taken; per GI [Dr Cristina] omeprazole 40 mg bid x4wk then 40 mg daily, repeat EGD in 12 wk hypoK - replete PO, recheck in AM hypoMg - replete IV/PO [increase to 800 mg bid Mg oxide], recheck in AM HTN - on amlodipine + metoprolol succinate; amlodipine dose decreased due to orthostasis orthostatic hypotension - still orthostatic- continue IV fluids and decrease amlodipine further hx AF diagnosed 04/13/21 - previously on beta-blockers + Xarelto but pt stopped and never followed up with Cardiology - no AF on cardiac monitoring currently leukocytosis - resolved, likely due to N/V, no clear source of infection DM2, A1c 8.5 - basal-bolus insulin DM neuropathy - gabapentin chronic diabetic foot wounds - per Wound Care: Right Plantar - Cleanse and irrigate with NS, pat dry. Lightly pack wound bed with Durafiber AG. Apply Vaseline to periwound and thick callused tissue to allow thick tissue to soften for removal at next washing. Change Daily. Recommend follow up out patient Wound Clinic VTE ppx - LMWH dispo - PT consulted, recommend home with VNA In my clinical judgment, the patient requires continued inpatient hospitalization for the following reasons: IRAIDA, IV fluids, IV Mg repletion Total time managing care of this patient today: 35 minutes. Quality Stroke Does the patient have a stroke diagnosis?: No VTE Prior VTE?: No VTE Risk Level:: Medical - moderate - high VTE Device Contraindication: Treatment Not Indicated VTE Drug Contraindication: N/A - Med Ordered
[2023-08-30 11:15] LABS: Glucose, Whole Blood 179 mg/dL (60-115)
--- NOTE | 2023-08-30 14:58 | MHC.CM.PN ---
EMR reviewed and per MD rounds, pt is not medically cleared for discharge due to management of IRAIDA.
[2023-08-30 16:07] LABS: Glucose, Whole Blood 223 mg/dL (60-115)
[2023-08-30] MEDS: Magnesium Oxide 400 MG TABLET 800 MG PO (16:47)
--- NOTE | 2023-08-30 18:41 | P.PNNP_ITS ---
Subjective Subjective Date of Service: 08/30/23 Interval history: No N/V; orthostatics still positive; All recent data reviewed Physical Exam 2 Vital Signs: Vital Signs: Last Vital Signs Temp 97.1 F 08/30/23 15:38 Pulse 80 08/30/23 15:38 Resp 18 08/30/23 15:38 BP 133/77 08/30/23 15:38 Pulse Ox 97 08/30/23 15:38 O2 Del Method Room Air 08/30/23 15:38 BMI result Body Mass Index 29.3 Const: General: comfortable and no acute distress O rientation/consciousness: patient oriented x3 HEENT: Head: Yes normocephalic Mouth: Normal oral and palatal mucosa present Eyes: EOM: EOMs intact bilaterally Neck: Neck: Yes supple Resp: Auscultation: clear to auscultation bilaterally Cardio: Jugular venous distension: no JVD Rate: regular rate GI: Palpation (GI): Soft to palpation Auscultation: normal bowel sounds : General: Yes no CVA tenderness Back/Spine/Pelvis: Back: no CVA tenderness Skin: General skin exam: no rashes or lesions noted Neuro: General: patient oriented x3 and moves all extremities Objective Data Labs 08/28/23 05:50 08/30/23 07:12 Labs: Laboratory Results - last 24 hr 08/28/23 08/29/23 08/30/23 05:50 19:37 07:12 Hold Purple Top SEE NOTE Sodium 136 Potassium 3.0 L Chloride 101 Carbon Dioxide 26 Anion Gap 12 BUN 14 Creatinine 1.42 H Estim Creat Clear Calc 74.7 Estimated GFR 51 POC Glucose 190 H Random Glucose 154 H Calcium 7.9 L D Magnesium 1.2 L* Proteinase 3 (PR3) Ab <1.0 Myeloperoxidase Ab <1.0 Complement C3 172 Complement C4 47 08/30/23 08/30/23 08/30/23 08:02 11:11 16:00 Hold Purple Top Sodium Potassium Chloride Carbon Dioxide Anion Gap BUN Creatinine Estim Creat Clear Calc Estimated GFR POC Glucose 156 H 179 H 223 H Random Glucose Calcium Magnesium Proteinase 3 (PR3) Ab Myeloperoxidase Ab Complement C3 Complement C4 Microbiology Microbiology Results: Microbiology 08/25/23 12:47 Blood - Venous Blood Culture - Final No growth after 5 days. 08/25/23 12:42 Blood - Venous Blood Culture - Final No growth after 5 days. Procedures Date of Service Date of Service: 08/30/23 Assessment & Plan Assessment and plan (1) Acute kidney injury: Status: Acute Plan IRAIDA due to tubular injury No reason to suspect GN/AIN/Obstruction Serum creatinine improved/stable C/W current supportive care for now Labs AM; Shall closely follow up Progress Note: Quality Stroke Does the patient have a stroke diagnosis?: No
[2023-08-30 19:59] LABS: Glucose, Whole Blood 172 mg/dL (60-115)
[2023-08-30] MEDS: Insulin Glargine,Hum.rec.anlog 100 UNIT/ML 10 ML VIAL 12 UNIT SUBCUT (21:29)
[2023-08-30] MEDS: Enoxaparin Sodium 40 MG/0.4 ML SYRINGE SUBCUT (21:30)
[2023-08-31] VITALS (7 sets, daily range): BP systolic 110–165; BP diastolic 58–85; PULSE 77–89; RESP 13–18; TEMP 36.2–36.3; O2SAT 97–98
[2023-08-31] MEDS: Omeprazole 40 MG CAPSULE.DR PO ×2 (06:28→16:24)
[2023-08-31 07:37] LABS: Glucose, Whole Blood 177 mg/dL (60-115)
[2023-08-31] MEDS: Magnesium Oxide 400 MG TABLET 800 MG PO ×2 (08:03→16:24)
[2023-08-31] MEDS: amLODIPine Besylate 2.5 MG TABLET PO (08:03)
[2023-08-31] MEDS: Metoprolol Succinate ER 50 MG TAB.ER.24H PO (08:03)
[2023-08-31] MEDS: Lactated Ringers 1,000 ML 100 ML IVCONT (08:03)
[2023-08-31] MEDS: Insulin Lispro 100 UNIT/ML 3 ML VIAL SUBCUT ×4 (08:04→20:42)
[2023-08-31] MEDS: polyethylene glycoL 3350 17 GM POWD.PACK PO (08:06)
[2023-08-31 08:42] LABS: Anion Gap 11 (12-20); Blood Urea Nitrogen 14 mg/dL (9-16); Calcium 8.3 mg/dL (8.4-10.2); Carbon Dioxide 27 mmol/L (22-29); Chloride 102 mmol/L (96-108); Creatinine Clr Calc Pharmacy 74.7; Estimated Glomerular Filt Rate 51; Glucose Random 174 mg/dL (60-115); Potassium 3.2 mmol/L (3.3-5.1); Sodium 137 mmol/L (135-145)
[2023-08-31 08:45] LABS: Magnesium 1.4 mg/dL (1.6-2.6)
--- NOTE | 2023-08-31 10:23 | HO.PM.IMPN ---
Subjective Subjective Date of Service: 08/31/23 Interval History: no N/V/abd pain orthostatics: 151/75->117/72->110/58 though not symptomatic K 3.2, Mg 1.4 Review of Systems Review of Systems: Yes all other systems are reviewed and are negative Physical Exam Vital Signs: Vital Signs: Last Vital Signs Temp 97.1 F 08/31/23 07:28 Pulse 89 08/31/23 09:09 Resp 18 08/31/23 07:28 BP 110/58 L 08/31/23 09:09 Pulse Ox 97 08/31/23 07:28 O2 Del Method Room Air 08/31/23 07:28 BMI result Body Mass Index 29.3 Gen: in no acute distress HEENT: sclera anicteric, moist mucus membranes Neck: supple Lungs: clear to auscultation bilaterally Heart: regular rate and rhythm, no murmurs Abd: soft, non-tender, non-distended Ext: no edema Skin: warm/well-perfused, s/p R 5th toe amputation Neuro: alert and oriented x3, no focal findings Psych: appropriate affect Objective Data Active Medications Acetaminophen (Acetaminophen 325 Mg Tablet) 650 mg PO Q6H PRN PRN Reason: Pain, Mild (Pain Scale 1-3) Amlodipine Besylate (Amlodipine Besylate 2.5 Mg Tablet) 2.5 mg PO DAILY [facility]; Protocol Last Admin: 08/31/23 08:03 Dose: 2.5 mg Documented By: NELSON Benzonatate (Benzonatate 100 Mg Capsule) 100 mg PO TID PRN PRN Reason: Cough Docusate Sodium (Docusate Sodium 100 Mg Capsule) 100 mg PO DAILY PRN PRN Reason: Constipation Enoxaparin Sodium (Enoxaparin Sodium 40 Mg/0.4 Ml Syringe) 40 mg SUBCUT Q24H [facility] Last Admin: 08/30/23 21:30 Dose: 40 mg Documented By: SALLY Gabapentin (Gabapentin 100 Mg Capsule) 100 mg PO BID PRN PRN Reason: neuropathic pain Glucose (Glucose Gel 15 Gm Gel..Gram.) 15 gm PO Q15M PRN; Protocol PRN Reason: per Hypoglycemia Standing Ord. Dextrose (D10) 250 mls @ 750 mls/hr IV Q15M PRN; Protocol PRN Reason: per Hypoglycemia Standing Ord. Lactated Ringer's (Lr) 1,000 mls @ 100 mls/hr IVCONT .Q10H [facility] Last Admin: 08/31/23 08:03 Dose: 100 mls/hr Documented By: NELSON Magnesium Sulfate (Magnesium Sulfate/H2o) 2 gm in 50 mls @ 25 mls/hr IV BID [facility] Stop: 08/31/23 22:59 Insulin Glargine (Insulin Glargine,Hum.Rec.Anlog 100 Unit/Ml 10 Ml Vial) 12 unit SUBCUT BEDTIME [facility] Last Admin: 08/30/23 21:29 Dose: 12 unit Documented By: SALLY Insulin Human Lispro (Insulin Lispro 100 Unit/Ml 3 Ml Vial) 0 unit SUBCUT QIDACHS [facility]; Protocol Last Admin: 08/31/23 08:04 Dose: 2 unit Documented By: NELSON Magnesium Oxide (Magnesium Oxide 400 Mg Tablet) 800 mg PO BIDPC [facility] Last Admin: 08/31/23 08:03 Dose: 800 mg Documented By: NELSON Melatonin (Melatonin 3 Mg Tablet) 6 mg PO BEDTIME PRN PRN Reason: Insomnia Metoprolol Succinate (Metoprolol Succinate Er 50 Mg Tab.Er.24h) 50 mg PO DAILY [facility]; Protocol Last Admin: 08/31/23 08:03 Dose: 50 mg Documented By: NELSON Omeprazole (Omeprazole 40 Mg Capsule.Dr) 40 mg PO BID@0630,1630 [facility] Last Admin: 08/31/23 06:28 Dose: 40 mg Documented By: SALLY Ondansetron HCl (Ondansetron Hcl 4 Mg/2 Ml Vial) 4 mg IVPUSH Q8H PRN PRN Reason: Nausea and Vomiting Last Admin: 08/26/23 07:56 Dose: 4 mg Documented By: JAMESON Polyethylene Glycol (Polyethylene Glycol 3350 17 Gm Powd.Pack) 17 gm PO DAILY [facility] Last Admin: 08/31/23 08:06 Dose: 17 gm Documented By: NELSON Potassium Chloride (Potassium Chloride Packet 20 Meq Packet) 40 meq PO BID [facility] Stop: 08/31/23 21:01 Sodium Chloride (0.9 % Sodium Chloride Flush 3 Ml Syringe) 3 ml IVFLUSH QSHIFT [facility] Last Admin: 08/31/23 08:04 Dose: Not Given Documented By: NELSON Non-Admin Reason: IV Running Labs 08/28/23 05:50 08/31/23 07:41 Labs: Laboratory Results - last 24 hr 08/30/23 08/30/23 08/30/23 11:11 16:00 19:56 Hold Purple Top Anion Gap Estim Creat Clear Calc Estimated GFR POC Glucose 179 H 223 H 172 H Random Glucose Calcium Magnesium 08/31/23 08/31/23 07:32 07:41 Hold Purple Top SEE NOTE Anion Gap 11 L Estim Creat Clear Calc 74.7 Estimated GFR 51 POC Glucose 177 H Random Glucose 174 H Calcium 8.3 L Magnesium 1.4 L* Microbiology Microbiology Results: Microbiology 08/25/23 12:47 Blood Culture - Final Blood - Venous No growth after 5 days. 08/25/23 12:42 Blood Culture - Final Blood - Venous No growth after 5 days. Assessment and Plan (1) Intractable vomiting: Status: Acute (2) Esophagitis: Status: Acute (3) Acute kidney injury: Status: Acute Plan d7 58yo M with pAF not on AC, HTN, HLD, DM2, peripheral neuropathy, hx osteomyelitis due to chronic DFU presenting with 3 wk of N/V, found to have IRAIDA prerenal IRAIDA - improved with IV fluids, Nephrology following, repeat BMP in AM intractable N/V - EGD 08/26 with erosive esophagitis, no mass, mild gastritis; per GI [Dr Cristina] omeprazole 40 mg bid x4wk then 40 mg daily, repeat EGD in 12 wk - biopsy pathology: Antral-type mucosa with mild chronic inactive inflammation; no Helicobacter organisms seen. hypoK - replete PO with 40 mEq KCl x 2 doses, recheck in AM hypoMg - continue MgO 800 mg bid and give IV Mg sulfate 2g x 2 doses, recheck in AM HTN - continue metoprolol succinate and d/c amlodipine due to orthostasis orthostatic hypotension - still orthostatic- continue IV fluids and stop amlodiine hx AF diagnosed 04/13/21 - previously on beta-blockers + Xarelto but pt stopped and never followed up with Cardiology - no AF on cardiac monitoring currently; continue metoprolol succinate leukocytosis - resolved, likely due to N/V, no clear source of infection DM2, A1c 8.5 - basal-bolus insulin DM neuropathy - gabapentin chronic diabetic foot wounds - per Wound Care: Right Plantar - Cleanse and irrigate with NS, pat dry. Lightly pack wound bed with Durafiber AG. Apply Vaseline to periwound and thick callused tissue to allow thick tissue to soften for removal at next washing. Change Daily. Recommend follow up out patient Wound Clinic VTE ppx - LMWH dispo - PT consulted, recommend home with VNA In my clinical judgment, the patient requires continued inpatient hospitalization for the following reasons: IRAIDA, IV fluids, IV Mg repletion Total time managing care of this patient today: 35 minutes. Quality Stroke Does the patient have a stroke diagnosis?: No VTE Prior VTE?: No VTE Risk Level:: Medical - moderate - high VTE Device Contraindication: Treatment Not Indicated VTE Drug Contraindication: N/A - Med Ordered
[2023-08-31 11:26] LABS: Glucose, Whole Blood 236 mg/dL (60-115)
[2023-08-31] MEDS: Potassium Chloride Packet 20 MEQ PACKET 40 MEQ PO ×2 (11:33→20:43)
[2023-08-31] MEDS: Magnesium Sulfate/H2O 2 GM/50 ML PIGGYBACK IV ×2 (11:34→20:42)
[2023-08-31 16:31] LABS: Glucose, Whole Blood 236 mg/dL (60-115)
[2023-08-31 19:57] LABS: Glucose, Whole Blood 228 mg/dL (60-115)
[2023-08-31] MEDS: Enoxaparin Sodium 40 MG/0.4 ML SYRINGE SUBCUT (20:42)
[2023-08-31] MEDS: Insulin Glargine,Hum.rec.anlog 100 UNIT/ML 10 ML VIAL 12 UNIT SUBCUT (20:42)
[2023-09-01] MEDS: Lactated Ringers 1,000 ML 100 ML IVCONT ×2 (00:17→09:16)
--- NOTE | 2023-09-01 01:02 | PC.NURSE ---
Right foot dressing changed.
[2023-09-01 03:04] VITALS: BP 167/80; PULSE 89; RESP 16; TEMP 36.3; O2SAT 97
[2023-09-01] MEDS: Omeprazole 40 MG CAPSULE.DR PO (06:15)
[2023-09-01 07:06] LABS: Anion Gap 10 (12-20); Blood Urea Nitrogen 12 mg/dL (9-16); Calcium 8.6 mg/dL (8.4-10.2); Carbon Dioxide 26 mmol/L (22-29); Chloride 102 mmol/L (96-108); Creatinine Clr Calc Pharmacy 74.2; Estimated Glomerular Filt Rate 51; Glucose Random 148 mg/dL (60-115); Potassium 3.4 mmol/L (3.3-5.1); Sodium 135 mmol/L (135-145)
[2023-09-01 07:35] LABS: Glucose, Whole Blood 148 mg/dL (60-115)
[2023-09-01 07:55] VITALS: BP 136/79; PULSE 82
[2023-09-01 07:59] VITALS: BP 154/78; PULSE 89; RESP 16; TEMP 36.5; O2SAT 97
[2023-09-01 09:08] VITALS: BP 136/64; PULSE 88
[2023-09-01 09:09] VITALS: BP 124/58; PULSE 91
[2023-09-01 09:11] VITALS: BP 124/58; PULSE 91
[2023-09-01] MEDS: Metoprolol Succinate ER 50 MG TAB.ER.24H PO (09:11)
[2023-09-01] MEDS: Magnesium Oxide 400 MG TABLET 800 MG PO (09:11)
--- NOTE | 2023-09-01 09:48 | P.F2F_ITS ---
Service Date Service Date: 09/01/23 Encounter Date of encounter: 09/01/23 Reasons for Services Signs and symptoms assessed: orthostasis imbalance weakness Reason for group home: medication management, medication treatment, teach disease management and other (BP monitoring due to orthostasis) Reason for physical therapy: home safety and mobility, therapeutic exercises, gait/transfer training, assess need for DME, ADL training and energy conservation MD Overseeing Care: Félix Carlton Homebound: Leaving the home is medically contraindicated at this time without the asist of a device and/or another person due th the listed conditions above and below. Reason homebound: unsteady gait / fall risk, fall risk related to blood pressure changes and weakness related to hospital stay Homebound supporting statement: Please attach PT evaluation from 08/29/23 Certification: Based on the above findings, I certify that this patient is confined to the home and needs intermittent group home care, physical therapy and/or speech therapy, or continues to need occupational therapy. The patient is under my care, and I have initiated the establishment of the plan of care. The patient will be followed by a physician who will periodically review the plan of care. Time Spent With Patient Time: Total time managing care of this patient today ____ minutes.
--- NOTE | 2023-09-01 09:49 | P.DS_ITS ---
DS: Providers Provider Date of Service: 09/01/23 Date of admission: 08/25/23 19:12 Date of discharge: 09/01/23 Primary care physician: Félix Carlton MD Consults: 08/25/23 20:09 Consult to Gastroenterology Routine Consulting Provider: Stephon Cristina Reason for consultation: Esophagitis, ?EGD 08/26/23 01:38 Consult to Wound Care Routine Reason for consultation: diabeti cwound to bottom of right foot Has provider been notified: No 08/26/23 07:48 Consult to Nephrology Routine Consulting Provider: [facility] Reason for consultation: iraida Has provider been notified: No 08/27/23 23:49 Consult to Wound Care Routine Reason for consultation: right foot DM ulcer DS: Diagnosis Discharge Diagnosis (1) Intractable vomiting: Status: Acute (2) Esophagitis: Status: Acute (3) Acute kidney injury: Status: Acute (4) Hypomagnesemia: Status: Acute (5) Hypokalemia: Status: Acute (6) Orthostatic hypotension: Status: Acute (7) Dehydration: Status: Acute (8) Benign essential hypertension: Status: Acute (9) Diabetic foot ulcer: Status: Acute DS: Summary Hospital Course Hospital Course: From the history and physical by the admitting hospitalist, MARIA L Hall, 08/25/23: Pt is a 58-year-old male with a PMH significant for?paroxysmal AFib no longer on anticoagulation, HTN, HLD, insulin-dependent type 2 diabetes, peripheral neuropathy, and hx of osteomyelitis secondary to chronic diabetic foot ulcers w ho presents to the ED with?intermittent nausea and vomiting for the past 3 weeks. Patient is a rather vague historian, but states he often has one or two vomiting episodes on most days that primarily occur in the mornings. Has not been eating or drinking much during this time, and has had reduced urine output. Otherwise patient has no acute medical complaints. Denies abdominal pain or diarrhea. No difficulty swallowing or breathing. Denies heartburn. No chest pain/pressure, palpitations. Denies shortness of breath, difficulty breathing, or cough. No sick contacts. Denies foot pain or purulent drainage from previous chronic wounds. Last saw Wound Care for diabetic foot ulcers 2 years ago. In the ED pt was tachycardic up to 123 and hypertensive up to 161/94. Labs were significant for leukocytosis of 19.8, BUN 39, creatinine 2.57, random glucose 348, and albumin 3.2. No significant electrolyte abnormalities. Lactic acid WNL at 1.4. CT?of abdomen and pelvis found wall thickening distal thoracic esophagus, with small posterior mediastinal lymph nodes and fluid adjacent to the distal thoracic esophagus. EKG demonstrated sinus tachycardia of 114 without evidence of significant ST elevations or depressions. Pt was treated with ondansetron, Maalox, lidocaine, Protonix, ceftriaxone, IVF, and insulin 10 units. Pt will be admitted to the hospital for treatment and further evaluation of esophagitis and IRAIDA in the setting of intractable nausea and vomiting and reduced p.o. intake. He was admitted to the medical-surgical floor. Hospital course by problem: prerenal IRAIDA - Nephrology consulted. Creatnine improved to 1.42 with IV fluid repletion. Ordered repeat BMP in 1 week. intractable nausea and vomiting due to erosive esophagitis - Gastroenterology consulted. EGD 08/[address] Stephon Cristina with erosive esophagitis, no mass, mild gastritis. Placed on omeprazole 40 mg bid x4wk then 40 mg daily. To repeat EGD in 3 mo. - Biopsy pathology: Antral-type mucosa with mild chronic inactive inflammation; no Helicobacter organisms seen. hypokalemia hypomagnesemia - Required copious IV and PO repletion due to GI losses from nausea and vomiting. Ultimately K and Mg normalized and the patietn was discharged on oral magnesium. Ordered repeat BMP/Mg in 1 week. HTN - Noted to have prior history of atrial fibrillation, though none noted on telemetry this admission. Placed on metoprolol succinate and discontinued amlodipine. orthostatic hypotension - Orthostatic by symptoms and BP drop. Finally resolved after copious IV fluid repletion. Should have orthostatics checked as outpatient; VNA service arranged. chronic diabetic foot wounds - per Wound Care: Right Plantar - Cleanse and irrigate with NS, pat dry. Lightly pack wound bed with Durafiber AG. Apply Vaseline to periwound and thick callused tissue to allow thick tissue to soften for removal at next washing. Change Daily. Recommend follow up out patient Wound Clinic The patient was discharged to home with [facility]NA services for home PT, orthostatic vital sign monitoring, and wound care. Time Attestation Discharge Coordination Time (in mins): 45 Quality: Safe Use of Opioids Does Pt have an Active Cancer Diagnosis on the Problem List?: No Quality: Stroke Does the patient have a stroke diagnosis?: No Physical Exam Vital Signs: Vital Signs: Last Vital Signs Temp 97.7 F 09/01/23 07:59 Pulse 91 09/01/23 09:11 Resp 16 09/01/23 07:59 BP 124/58 L 09/01/23 09:11 Pulse Ox 97 09/01/23 07:59 O2 Del Method Room Air 09/01/23 07:59 BMI result Body Mass Index 29.3 Gen: in no acute distress HEENT: sclera anicteric, moist mucus membranes Neck: supple Lungs: clear to auscultation bilaterally Heart: regular rate and rhythm, no murmurs Abd: soft, non-tender, non-distended Ext: no edema Skin: warm/well-perfused, s/p R 5th toe amputation, R forefoot plantar ulcer Neuro: alert and oriented x3, no focal findings Psych: appropriate affect DS: Data Data Completed and Pending Completed studies during hospitalization [Text1]: Laboratory Results WBC 7.3 X10*3/uL (4.8-10.8) 08/28/23 05:50 RBC 4.84 X10*6/uL (4.60-5.80) 08/28/23 05:50 Hgb 13.6 g/dl (14.0-18.0) L 08/28/23 05:50 Hct 40.8 % (42.0-52.0) L 08/28/23 05:50 MCV 84.3 fL (80.0-98.0) 08/28/23 05:50 MCH 28.1 pg (27.0-33.0) 08/28/23 05:50 MCHC 33.3 g/dl (31.0-36.0) 08/28/23 05:50 RDW 13.5 % (11.0-16.0) 08/28/23 05:50 Plt Count 305 X10*3/uL (160-400) 08/28/23 05:50 MPV 9.6 fL (9.4-12.4) 08/28/23 05:50 Immature Gran % (Auto) 0.5 % (0.0-0.4) H 08/25/23 10:47 Neut % (Auto) 91.4 % (45-73) H 08/25/23 10:47 Lymph % (Auto) 3.6 % (20-40) L 08/25/23 10:47 [place] % (Auto) 4.1 % (2-11) 08/25/23 10:47 Eos % (Auto) 0.0 % (0-4) 08/25/23 10:47 Baso % (Auto) 0.4 % (0-2) 08/25/23 10:47 Lymph # (Auto) 0.7 X10*3/uL (1.2-4.9) L 08/25/23 10:47 [place] # (Auto) 0.8 X10*3/uL (0.1-1.2) 08/25/23 10:47 Eos # (Auto) 0.0 X10*3/uL (0.0-0.4) 08/25/23 10:47 Baso # (Auto) 0.1 X10*3/uL (0.0-0.2) 08/25/23 10:47 Abs Immat Gran (auto) 0.10 X10*3/uL (0.00-0.03) H 08/25/23 10:47 Absolute Neuts (auto) 18.1 x10*3/uL (2.0-8.3) H 08/25/23 10:47 Absolute Nucleated RBC 0.000 X10*3/uL (0.0-0.012) 08/28/23 05:50 Nucleated RBC % (auto) 0.0 /100WBC (0.0-0.2) 08/28/23 05:50 Smear Tech's Comments VERIFIED 08/25/23 10:47 Hold Purple Top SEE NOTE 09/01/23 06:03 Sodium 135 mmol/L (135-145) 09/01/23 06:03 Potassium 3.4 mmol/L (3.3-5.1) 09/01/23 06:03 Chloride 102 mmol/L (96-108) 09/01/23 06:03 Carbon Dioxide 26 mmol/L (22-29) 09/01/23 06:03 Anion Gap 10 (12-20) L 09/01/23 06:03 BUN 12 mg/dL (9-16) 09/01/23 06:03 Creatinine 1.43 mg/dL (0.5-1.4) H 09/01/23 06:03 Estim Creat Clear Calc 74.2 09/01/23 06:03 Estimated GFR 51 09/01/23 06:03 POC Glucose 148 mg/dL (60-115) H 09/01/23 07:23 Random Glucose 148 mg/dL (60-115) H 09/01/23 06:03 Estimat Average Glucose 197 mg/dL 08/26/23 05:47 Hemoglobin A1c % 8.5 % (<6.0) H 08/26/23 05:47 Lactic Acid 1.4 mmol/L (0.5-2.0) 08/25/23 12:42 Calcium 8.6 mg/dL (8.4-10.2) 09/01/23 06:03 Magnesium 2.0 mg/dL (1.6-2.6) 09/01/23 06:03 Total Bilirubin 0.3 mg/dL (0.0-1.0) 08/25/23 10:47 Direct Bilirubin 0.2 mg/dL (0.0-0.5) 08/25/23 10:47 AST 17 U/L (5-37) 08/25/23 10:47 ALT 9 U/L (0-40) 08/25/23 10:47 Alkaline Phosphatase 120 U/L (39-117) H 08/25/23 10:47 Total Protein 7.8 g/dL (6.5-8.0) 08/25/23 10:47 Albumin 3.2 g/dL (3.5-5.0) L 08/25/23 10:47 Lipase 13 U/L (8-78) 08/25/23 10:47 TSH 0.79 uIU/mL (0.32-4.0) 08/29/23 05:22 Urine Color Yellow 08/25/23 12:55 Urine Appearance Cloudy 08/25/23 12:55 Urine pH 6.0 (5.0-9.0) 08/25/23 12:55 Ur Specific [place] 1.025 (1.005-1.025) 08/25/23 12:55 Urine Protein >=1000 (4+) mg/dL (Neg-Trace) H 08/25/23 12:55 Urine Glucose (UA) >=1000 mg/dL (Negative) H 08/25/23 12:55 Urine Ketones Trace mg/dL (Negative) 08/25/23 12:55 Urine Blood Moderate (2+) (Negative) H 08/25/23 12:55 Urine Nitrite Negative (Negative) 08/25/23 12:55 Ur Leukocyte Esterase Negative (Negative) 08/25/23 12:55 Urine RBC >20 /HPF (0-2) H 08/25/23 12:55 Urine WBC 0-5 /HPF (0-5) 08/25/23 12:55 Ur Squamous Epith Cells 0-2 /HPF (0-2) 08/25/23 12:55 Urine Bacteria None Seen (None Seen) 08/25/23 12:55 Hyaline Casts 0-2 /LPF (0-2) 08/25/23 12:55 U Random Total Protein 365 mg/dL (<12) H 08/28/23 05:19 Urine Creatinine 32.56 mg/dL 08/28/23 05:19 Proteinase 3 (PR3) Ab <1.0 AI 08/28/23 05:50 Myeloperoxidase Ab <1.0 AI 08/28/23 05:50 Complement C3 172 mg/dL (82-185) 08/28/23 05:50 Complement C4 47 mg/dL (15-53) 08/28/23 05:50 Impressions Abdomen/Pelvis CT 08/25/23 13:37 IMPRESSION: Wall thickening of the distal thoracic esophagus. Small posterior mediastinal lymph nodes and fluid adjacent to the distal thoracic esophagus. Fleischner guidelines were followed. Chest X-Ray 08/25/23 16:56 IMPRESSION: No active cardiopulmonary disease. Discharge Plan Discharge Anticipated Discharge Date/Time: 09/01/23 09:49 Patient Disposition: Home Health Service Discharge Diagnosis: acute kidney injury due to nausea/vomiting hypertension/orthostatic hypotension esophagitis hypokalemia hypomagnesemia diabetic foot ulcer Referrals: [facility] [Outside] - 1 Day ([facility] will call you to schedule nursing and physical therapy appointments) Félix Carlton MD [Primary Care Provider] - 1 Week Stephon Cristina MD [Physician] - 3 Months [facility]Provider Group] - 1 Week Discharge Medications: New metoprolol succinate 50 mg Tablet Extended Release 24 Hr 50 mg PO DAILY Qty: 30 0RF Protocol: Hold for SBP/HR < HOLD for SBP < : 90 HOLD for HR < : 60 omeprazole 40 mg Capsule,Delayed Release(Dr/Ec) 40 mg PO BID@0630,1630 Qty: 60 0RF magnesium oxide 400 mg (241.3 mg magnesium) Tablet 800 mg PO BIDPC Qty: 120 0RF Continued (DME) FreeStyle Lite Strips Strip See Rx Instructions .ROUTE .MEDSUPPLY Qty: 100 12RF Rx Instructions: As directed 3 times a day (DME) FreeStyle Dedra 14 Day Sensor Kit See Rx Instructions .Route Qty: 1 5RF Rx Instructions: As directed metformin 1,000 mg tablet 1,000 mg PO BID Qty: 60 4RF gabapentin 100 mg capsule 100 mg PO BID PRN (Reason: neuropathic pain) Discontinued amlodipine 10 mg tablet 10 mg PO DAILY 30 Days Qty: 30 3RF omeprazole magnesium 20 mg Capsule,Delayed Release(Dr/Ec) 20 mg PO DAILY@0630 Discharge Orders: Discharge Order (Routine); Ordered 09/01/23 Ordered By: Arian Turk Diet: Diabetic diet Activity on Discharge: As tolerated Stand Alone Forms: Patient Portal Discharge page Print Language: Luxembourgish Other Ambulatory Orders: Basic Metabolic Panel (Routine) Timeframe: 1 Week Facility: [facility] - Location: Laboratory Ordered By: Arian Turk Magnesium (Routine) Timeframe: 1 Week Facility: [facility] - Location: Laboratory Ordered By: Arian Turk Care Plan Goals: recovery from nausea/vomiting GI health kidney health normal electrolytes Health Concerns: acute kidney injury due to nausea/vomiting hypertension/orthostatic hypotension esophagitis hypokalemia hypomagnesemia Plan of Treatment: acute kidney injury: improved; drink plenty of fluids; avoid NSAIDs; recheck BMP [nonfasting lab] in 1 week esophagitis: take omeprazole 40 mg twice daily for 1 month then 40 mg daily; follow up with Dr Cristina from [facility] for repeat EGD in 3mo hypokalemia: eat potassium-rich foods and recheck BMP in 1 week hypomagnesemia: take magnesium oxide 800 mg twice daily and recheck level in 1 week HTN: change amlodipine to metoprolol succinate 50 mg once daily; orthostatic precautions diabetic foot ulcer: wound care- Cleanse and irrigate with NS, pat dry. Lightly pack wound bed with Durafiber AG. Apply Vaseline to periwound and thick callused tissue to allow thick tissue to soften for removal at next washing. Change Daily. Recommend follow up out patient Wound Clinic at [address] [place] [address] and to call for an appointment at time of discharge. [phone].? Please follow up with your primary care doctor within 1 week. Return to the hospital if you experience recurrent or worsening symptoms. Assessment: See Discharge Summary. Patient Instructions: Hypokalemia (DC), Hypotension (DC), Hypomagnesemia (DC)
--- NOTE | 2023-09-01 10:04 | MHC.CM.PN ---
Patient medically cleared for dc home w/ new [facility] for SN and PT. [facility] made aware of dc via [facility]port. Patient's mother is at bedside to transport. RN aware.
== END 2023-09-01 11:15 | disposition home health service (06) | DRG 243 ==
LOC: HO.ED 15:17 → HO.EDOVER 19:49 → HO.S3 08-26 00:37
PROVIDERS: Emergency Medicine; Hospitalist; Internal Medicine Gastroenterology; Internal Medicine Hypertension Specialist; Admitting Provider Student in an Organized Health Care Education/Training Program; Emergency Provider Emergency Medicine; PCP Internal Medicine; Visit Provider Family Medicine
PROC: 0DJ08ZZ Inspection of Upper Intestinal Tract, Via Natural or Artificial Opening Endoscopic (ICD-10-PCS; CPT 43235; principal; 2023-08-27 15:10)
DX: K22.10 Ulcer of esophagus without bleeding (principal); N17.0 Acute kidney failure with tubular necrosis; E11.42 Type 2 diabetes mellitus with diabetic polyneuropathy; L97.419 Non-pressure chronic ulcer of right heel and midfoot with unspecified severity; E86.0 Dehydration; I48.0 Paroxysmal atrial fibrillation; E11.621 Type 2 diabetes mellitus with foot ulcer; E11.65 Type 2 diabetes mellitus with hyperglycemia; I95.1 Orthostatic hypotension; E78.5 Hyperlipidemia, unspecified; K29.70 Gastritis, unspecified, without bleeding; E83.42 Hypomagnesemia; E87.5 Hyperkalemia; F17.210 Nicotine dependence, cigarettes, uncomplicated; I10 Essential (primary) hypertension; Z91.199 Patient's noncompliance with other medical treatment and regimen due to unspecified reason; Z71.6 Tobacco abuse counseling; Z79.84 Long term (current) use of oral hypoglycemic drugs; Z79.899 Other long term (current) drug therapy
CPT/HCPCS: 36415; 71045; 74176; 80048; 80076; 81001; 82570; 82947; 83036; 83605; 83690; 83735; 84156; 84443; 85025; 85027; 86021; 86160; 87040; 88305; 88313; 88342; 92950; 93005; 97116; 97162; 99285; C9113; J0696; J1650; J2405; J2704; J3475; J3480; J7120

== ENCOUNTER → 2023-08-25 10:41 | Outpatient (BNV) | payer OTHER, SELFPAY | PROVIDERS: Admitting Provider Student in an Organized Health Care Education/Training Program; Emergency Provider Emergency Medicine; PCP Internal Medicine; Visit Provider Internal Medicine Cardiovascular Disease | DX: R94.31 Abnormal electrocardiogram [ECG] [EKG] (principal) | CPT/HCPCS: 93010 ==

== ENCOUNTER → 2023-08-25 19:12 | Outpatient (BNV) | payer OTHER, SELFPAY | PROVIDERS: Admitting Provider Student in an Organized Health Care Education/Training Program; Emergency Provider Emergency Medicine; PCP Internal Medicine; Visit Provider Internal Medicine Hypertension Specialist | DX: N17.0 Acute kidney failure with tubular necrosis (principal) | CPT/HCPCS: 99223; 99232 ==

== ENCOUNTER → 2023-08-25 19:12 | Outpatient (BNV) | payer OTHER, SELFPAY | PROVIDERS: Admitting Provider Student in an Organized Health Care Education/Training Program; Emergency Provider Emergency Medicine; PCP Internal Medicine; Visit Provider Student in an Organized Health Care Education/Training Program | DX: N17.9 Acute kidney failure, unspecified (principal); R11.10 Vomiting, unspecified; K20.90 Esophagitis, unspecified without bleeding | CPT/HCPCS: 99223; 99232; 99233; 99239; G0180 ==

== ENCOUNTER 2023-09-09 08:33 | Emergency (ER) | payer OTHER, SELFPAY ==
[2023-09-09] VITALS (8 sets, daily range): BP systolic 138–191; BP diastolic 69–96; PULSE 75–80; RESP 14–16; TEMP 36.6–37; O2SAT 97–99; BMI 29.1
--- NOTE | ~2023-09-09 | CT_ITS ---
EXAMINATION: CT HEAD W/O IV CONTRAST CT CERVICAL SPINE W/O IV CONTRAST CLINICAL INFORMATION: History of fall. COMPARISON: Head CT from 04/14/2021 TECHNIQUE: Head - Contiguous axial imaging of the head was performed from the skull base to the vertex without the administration of intravenous contrast, and axial images are reconstructed at 2 mm and 5 mm slice thickness. Cervical spine - A volumetric, helical CT acquisition of the cervical spine was obtained without contrast; in addition to the standard set of axial images, multiplanar reformatted images were provided in the coronal and sagittal imaging planes. This CT examination was performed using dose optimization techniques as appropriate, variously including the following: *Automated exposure control *Adjustment of mA and/or kV according to patient size (this includes techniques or standardized protocols for targeted exams where dose is matched to indication/reason for exam; i.e. extremities or head) *Use of iterative reconstruction technique DLP: 1475 mGy-cm (total) FINDINGS: HEAD: No intracranial hemorrhage, extra-axial surface collection, focal mass effect or midline shift. There is atherosclerotic calcification of cavernous carotid arteries. Small hypodense foci from old lacunar infarctions in gangliocapsular regions. The hypodensity involving the left corpus striatum is of uncertain chronicity but could be from a recent infarction. No evidence of an acute major vascular territory infarction. Mild parenchymal volume loss with commensurate prominence of ventricles and sulci. No hydrocephalus. The lacunar infarcts in the right gangliocapsular region are associated with mild ex vacuo dilatation of the right frontal horn. The brainstem and cerebellum are unremarkable. No calvarial fracture. Mild mucosal thickening at the floor of each maxillary antrum. Otherwise, the paranasal sinuses and mastoid air cells are well aerated. The patient is missing multiple teeth. Also, there are multiple dental caries with periapical lucencies (alveolar and cortical bone erosions) of the maxilla from periodontal and endodontic disease. Temporomandibular joints are normal. CERVICAL SPINE: There is mild dextrocurvature of the cervical spine. The lordotic curvature is normal. The craniocervical junction is normal. The occipital condyles, dens and atlantodental articulation are intact. There is calcium deposition (likely calcium pyrophosphate dihydrate crystal deposition) along the transverse ligament posterior to the dens. The vertebral body heights and alignment are maintained. No fractures in the anterior or posterior elements. No prevertebral soft tissue edema or soft tissue hematoma. The disc spaces are preserved. There are foci of ossification along the posterior longitudinal ligament, most pronounced at C4 and C5 resulting in moderate stenosis of the central spinal canal. There is uncovertebral joint hypertrophy with moderate right-sided neural foraminal stenosis at C4-C5. Thyroid gland is normal. The examined lung apices are clear. CT/CT cervical spine wo IV con IMPRESSION: * No calvarial fracture or intracranial hemorrhage. * There appear to be old lacunar infarctions in the gangliocapsular regions. Also, a lacunar infarct involving the left corpus striatum is of uncertain chronicity; it might be acute or subacute. * Incidentally noted are dental caries and osseous lucencies from periodontal and endodontic disease. * No fracture or malalignment in the cervical spine. * Posterior longitudinal ligament ossification causes spinal canal stenosis at C4-C5.
--- NOTE | 2023-09-09 08:39 | ECG_ITS ---
Test Reason : fall Blood Pressure : / mmHG Vent. Rate : 078 BPM Atrial Rate : 078 BPM P-R Int : 152 ms QRS Dur : 086 ms QT Int : 408 ms P-R-T Axes : -02 032 077 degrees QTc Int : 465 ms Normal sinus rhythm Nonspecific ST abnormality Abnormal ECG When compared with ECG of 25-AUG-2023 10:45, No significant change was found Referred By: Nubia Manuel Electronically Signed By:JORDY BELL MD
[2023-09-09 09:03] LABS: MANUAL DIFF FLAG NO
[2023-09-09 09:05] LABS: Basophils Percent Auto 0.4 % (0-2); Eosinophils Percent Auto 0.2 % (0-4); Hematocrit 40.1 % (42.0-52.0); Hemoglobin 13.5 g/dl (14.0-18.0); Imm Gran Abs Auto 0.04 X10*3/uL (0.00-0.03); Imm Gran Pct Auto 0.4 % (0.0-0.4); Lymphocytes Percent Auto 9.2 % (20-40); Mean Corpuscular HGB Conc 33.7 g/dl (31.0-36.0); Mean Corpuscular Hemoglobin 27.8 pg (27.0-33.0); Mean Corpuscular Volume 82.5 fL (80.0-98.0); Mean Platelet Volume 9.1 fL (9.4-12.4); Monocytes Absolute Auto 0.5 X10*3/uL (0.1-1.2); Monocytes Percent Auto 4.4 % (2-11); Neutrophils Absolute Auto 8.9 x10*3/uL (2.0-8.3); Neutrophils Percent Auto 85.4 % (45-73); Platelet Count 351 X10*3/uL (160-400); Red Blood Count 4.86 X10*6/uL (4.60-5.80); Red Cell Distribution Width 13.9 % (11.0-16.0); White Blood Count 10.4 X10*3/uL (4.8-10.8)
--- NOTE | 2023-09-09 09:07 | ED_ITS ---
HPI - Fall General Chief Complaint: Fall Stated Complaint: WEAK,UNWIT FALL,-THINNER,RECENT IRAIDA,+CCOLL PER EMS Time Seen by Provider: 09/09/23 08:38 Source: patient, family, EMS, RN notes reviewed and old records reviewed Mode of arrival: EMS Limitations: altered mental status (primarily answers yes or no questions ) History of Present Illness ED Provider: Ivan Manuel PA-C HPI Narrative: 58year old male with history of paroxysmal afib not on anticoagulation, HTN, poorly controlled DM with right foot ulcers brought in by ambulance for evaluation after an unwitnessed fall with unknown down time. This morning his mother found him on the floor of his living room with objects knocked down around him. He is a poor historian and does not know how or why he fell, he denies chest pain, SOB, headache, dizziness at the time of fall or currently. Denies tripping on anything, denies LOC. He was recently admitted to [facility] with IRAIDA and vomiting from 08/24-08/31. Per his mom and ex-girlfriend he has not been at baseline physical or mental status since he was admitted. Did one session of PT after discharge, then refused. He has been newly incontinent of bladder and occasionally bowel, answers primarily only to yes or no questions, and has been significantly less mobile during his admission and since getting home, eating and drinking okay. He denies urinary symptoms of frequency, urgency, or dysuria. Also denies vomiting since being home. MD complaint: fall Onset (ago): unknown Fall from: other (unknown if standing or chair) Fall witnessed: no Place fall occurred: home Loss of consciousness: unsure Prolonged down time: unclear Symptoms prior to fall: none Context: recent illness (recent hospital admission to [facility] with IRAIDA and vomiting) Location of injury - extremities: left: ankle (1 cm abrasion over left lateral malleolus) Associated symptoms (after fall): denies Related Data Home Medications ?Medication ?Instructions ?Recorded ?Confirmed gabapentin 100 mg capsule 100 mg PO BID PRN neuropathic pain 08/25/23 08/25/23 Previous Rx's ?Medication ?Instructions ?Recorded blood sugar diagnostic (FreeStyle #100 ea 07/16/22 Lite Strips) flash glucose sensor (FreeStyle #1 ea 07/17/23 Dedra 14 Day Sensor kit) metformin 1,000 mg tablet 1,000 mg PO BID #60 tabs 07/17/23 magnesium oxide 400 mg (241.3 mg 800 mg (2 x 400 mg (241.3 mg 09/01/23 magnesium) tablet magnesium)) PO BIDPC #120 tabs metoprolol succinate 50 mg 50 mg PO DAILY #30 tabs 09/01/23 tablet,extended release 24 hr omeprazole 40 mg capsule,delayed 40 mg PO BID@0630,1630 #60 caps 09/01/23 release Allergies Allergy/AdvReac Type Severity Reaction Status Date / Time No Known Allergies Allergy Verified 09/09/23 08:46 [No Known Allergies*] Review of Systems 2 Review of Systems: Yes all other systems are reviewed and are negative [facility] Past Medical History Medical History Obesity (BMI 30-39.9) Benign essential hypertension Diabetes mellitus Type II diabetes mellitus Uncontrolled diabetes mellitus Paroxysmal atrial fibrillation Diabetic foot infection COVID-19 Surgical History No pertinent past surgical history Family History Family History Mother No problems noted. Father No problems noted. Social History Social History Household Members: None Housing: Apartment Do you presently have visiting nurse or other home services: No Unable to assess alcohol history related to: Refusing to respond Alcohol intake: former Patient Tobacco Use Status: Current everyday Tobacco user Tobacco use type: Cigarette Cigarette Packs Per Day: 0.5 Cigarettes Per Day: 10.0 Second Hand Smoke Exposure: No Advance Directives: No Advance Directives Information Provided: Yes Do you have a plan to hurt others: No Plan service: No Current occupational status: unemployed Cognitive needs: No Hearing needs: No Vision needs: No Physical Exam 2 Vital Signs: Vital Signs: Last Vital Signs Temp 98.3 F 09/09/23 13:03 Pulse 77 09/09/23 13:03 Resp 16 09/09/23 13:03 BP 159/85 H 09/09/23 13:03 Pulse Ox 98 09/09/23 13:03 O2 Del Method Room Air 09/09/23 13:03 BMI result Body Mass Index 29.1 Appearance: Alert. Sitting up in stretcher, c-collar present. No acute distress. Head: normocephalic, atraumatic. Eyes: Pupils equal, round and reactive to light. ENT: Pharynx normal. No tonsillar swelling or exudate. Neck: Normal inspection. Neck supple. CVS: Regular heart rate and rhythm, no murmurs, rubs, or clicks appreciated. Pulses normal. Respiratory: No respiratory distress. Lungs sounds clear bilaterally, no adventitious lung sounds appreciated. Abdomen: Nondistended. Normoactive +BS x4. No tenderness to palpation, no rebound or guarding. Skin: Skin warm and dry. Normal skin color. Normal skin turgor. No rashes. 1cm abrasion to left lateral malleolus, not actively bleeding. Extremities: No lower extremity edema. No joint swelling. Right foot with 2 diabetic foot ulcers on the plantar aspect of the foot, not actively draining, dressing present (known and treated by wound center) Neuro/psych: Oriented X 3. Strength is equal and symmetric although general weakness noted. Chronic diabetic neuropathy of feet, otherwise no sensory deficits. CN II-XII intact. Responds primarily to yes or no questions. Medications Administered Discontinued Medications Generic Name Dose Route Start Last Admin Trade Name Freq PRN Reason Stop Dose Admin Magnesium Sulfate 2 gm in 50 mls @ 150 mls/hr 09/09/23 09:41 09/09/23 11:50 Magnesium Sulfate/H2o IV 09/09/23 10:00 Infused ONCE ONE Infusion Sodium Chloride 1,000 mls @ 999 mls/hr 09/09/23 11:15 09/09/23 13:02 Ns IVCONT 09/09/23 12:15 Infused .Q1H1M MICHELLE Infusion Medical Decision Making Medical Decision Making MDM Narrative: 58year old male with history of paroxysmal afib not on anticoagulation, HTN, poorly controlled DM with right foot ulcers brought in by ambulance for evaluation after an unwitnessed fall with unknown down time. Denies headstrike or LOC. Not on blood thinners. Patient is a poor historian, primarily only answers yes/no questions, gives more specific answers if asked specifically. He is unable to state when or how he fell, denies tripping, chest pain, shortness of breath, dizziness, or pain anywhere in his body. Recent hospitalization from 08/24-08/31 for IRAIDA and vomiting. On arrival to the ED he was hypertensive to 158/83, otherwise vital signs within normal limits. Initial workup included EKG, CBC, chemistry, magnesium and calcium levels, CPK, troponin, CT head/neck, and urinalysis. EKG showed nonspecific ST abnormality, negative for arrhythmia or ischemic changes. CBC shows normal WBC of 10.4, normal platelets, mild normocytic anemia with H/H of 13.5/40.1 which is stable from previous labs. Chemistry shows elevated Cr of 1.83 with BUN of 18. Discharged on 08/31 with Cr 1.43, BUN 12. Baseline from 2021 is ~1.1. Will give 1L of fluids to treat for IRAIDA Elevated blood glucose at 224. Normal liver function, mild hypoalbuminemia at 3.0. Magnesium low at 1.4, replaced with 2g IV. Initial troponin within normal limits at 6.8. TSH normal at 1.27. CT head and neck were negative for acute fracture, c-collar removed. Chronic lacunar infarcts present but unlikely to explain changes in mental status. Overall workup is reassuring for medical stability. Decreased mobility and change in mental status are likely attributable to deconditioning from week long hospital stay and inadequate rehab after discharge. Thanh placed in physician observation pending physical therapy evaluation and case management consultation. Patient and family agree with plan. Differential Diagnosis Differential Diagnoses: The differential diagnosis associated with the presentation includes Mechanical fall ACS UTI Electrolyte disturbance IRAIDA Hospital-associated deconditioning Admission/Observation Consideration of admission/observation: Escalation of care including admission/observation considered Lab Data MDM Lab Attestation statement: I reviewed the patient's lab results. No leukocytosis, mild anemia, mild IRAIDA on CKD, hyperglycemia without anion gap 09/09/23 08:59 09/09/23 08:59 Labs: Lab Results 09/09/23 Range/Units 08:59 WBC 10.4 (4.8-10.8) X10*3/uL RBC 4.86 (4.60-5.80) X10*6/uL Hgb 13.5 L (14.0-18.0) g/dl Hct 40.1 L (42.0-52.0) % MCV 82.5 (80.0-98.0) fL MCH 27.8 (27.0-33.0) pg MCHC 33.7 (31.0-36.0) g/dl RDW 13.9 (11.0-16.0) % Plt Count 351 (160-400) X10*3/uL MPV 9.1 L (9.4-12.4) fL Immature Gran % (Auto) 0.4 (0.0-0.4) % Neut % (Auto) 85.4 H (45-73) % Lymph % (Auto) 9.2 L (20-40) % [place] % (Auto) 4.4 (2-11) % Eos % (Auto) 0.2 (0-4) % Baso % (Auto) 0.4 (0-2) % Lymph # (Auto) 1.0 L (1.2-4.9) X10*3/uL [place] # (Auto) 0.5 (0.1-1.2) X10*3/uL Eos # (Auto) 0.0 (0.0-0.4) X10*3/uL Baso # (Auto) 0.0 (0.0-0.2) X10*3/uL Abs Immat Gran (auto) 0.04 H (0.00-0.03) X10*3/uL Absolute Neuts (auto) 8.9 H (2.0-8.3) x10*3/uL Absolute Nucleated RBC 0.000 (0.0-0.012) X10*3/uL Nucleated RBC % (auto) 0.0 (0.0-0.2) /100WBC Sodium 138 (135-145) mmol/L Potassium 4.4 D (3.3-5.1) mmol/L Chloride 101 (96-108) mmol/L Carbon Dioxide 26 (22-29) mmol/L Anion Gap 15 (12-20) BUN 18 H (9-16) mg/dL Creatinine 1.83 H (0.5-1.4) mg/dL Estim Creat Clear Calc 57.8 Estimated GFR 38 Random Glucose 224 H (60-115) mg/dL Calcium 9.0 (8.4-10.2) mg/dL Magnesium 1.4 L* (1.6-2.6) mg/dL Total Bilirubin 0.3 (0.0-1.0) mg/dL Direct Bilirubin 0.1 (0.0-0.5) mg/dL AST 15 (5-37) U/L ALT 10 (0-40) U/L Alkaline Phosphatase 72 (39-117) U/L Total Creatine Kinase 58 (38-174) U/L Troponin I High Sens 6.8 (<3.5-35.0) ng/L Total Protein 7.3 (6.5-8.0) g/dL Albumin 3.0 L (3.5-5.0) g/dL TSH 1.27 (0.32-4.0) uIU/mL COVID-19 (BENNIE) Negative (Negative) COVID-19 Clin Com See Note Influenza Type A (YENY) Negative (Negative) Influenza Type B (YENY) Negative (Negative) Influenza A & B Note See Note Independent Interpretation I performed an independent interpretation of an: EKG and CT Scan Interpretation: CT head without acute bleed or edema EKG with normal sinus rhythm, HR 78 bpm, non specific ST abnormality, q wave in lead III, no ST segment elevations Radiology Impression Discussion of test interpretation with radiology: I have reviewed the radiologist's reading. Radiologist Impression: CT head and c-spine WO IV contrast IMPRESSION: * No calvarial fracture or intracranial hemorrhage. * There appear to be old lacunar infarctions in the gangliocapsular regions. Also, a lacunar infarct involving the left corpus striatum is of uncertain chronicity; it might be acute or subacute. * Incidentally noted are dental caries and osseous lucencies from periodontal and endodontic disease. * No fracture or malalignment in the cervical spine. * Posterior longitudinal ligament ossification causes spinal canal stenosis at C4-C5. Independent Historian Clinical information obtained from an independent historian. History obtained from or confirmed by: Parent and EMS External Record Review External record reviewed: Inpatient record, Outpatient record, Prior outpatient labs and Prior outpatient radiology Prescription Management I considered prescription management with: Pain Medication and Antibiotic Chronic Conditions Patient?s care impacted by: Diabetes Critical Care Time Critical Care Time Critical Care Time: No Discharge Plan Discharge Clinical Impression: Weakness, Hypomagnesemia Patient Disposition: Still a Patient Prescriptions: No Action (DME) FreeStyle Lite Strips Strip See Rx Instructions .ROUTE .MEDSUPPLY Qty: 100 12RF Rx Instructions: As directed 3 times a day (DME) FreeStyle Dedra 14 Day Sensor Kit See Rx Instructions .Route Qty: 1 5RF Rx Instructions: As directed metformin 1,000 mg tablet 1,000 mg PO BID Qty: 60 4RF gabapentin 100 mg capsule 100 mg PO BID PRN (Reason: neuropathic pain) metoprolol succinate 50 mg Tablet Extended Release 24 Hr 50 mg PO DAILY Qty: 30 0RF Protocol: Hold for SBP/HR < HOLD for SBP < : 90 HOLD for HR < : 60 omeprazole 40 mg Capsule,Delayed Release(Dr/Ec) 40 mg PO BID@0630,1630 Qty: 60 0RF magnesium oxide 400 mg (241.3 mg magnesium) Tablet 800 mg PO BIDPC Qty: 120 0RF Print Language: Mosotho
--- NOTE | 2023-09-09 09:07 | PC.NURSE ---
per family, patient has been off since his discharge earlier this month. has been having episode of bowel/bladder incontinence, is acting off from his baseline. requesting further help at home, educated family on the need to medically clear patient before case management involvement. understandable and agreeable to the plan.
[2023-09-09 09:20] LABS: COVID-19 Test Negative (Negative); IDNOW Serial# 08D9AD1C
[2023-09-09 09:24] LABS: Troponin-I High Sensitivity 6.8 ng/L (<3.5-35.0)
--- NOTE | 2023-09-09 09:24 | MHC.CM.ED ---
[facility] with [facility]. Return referral made via [facility] so they can follow for d/c needs.
[2023-09-09 09:26] LABS: Alanine Aminotransferase 10 U/L (0-40); Alkaline Phosphatase 72 U/L (39-117); Anion Gap 15 (12-20); Aspartate Amino Transferase 15 U/L (5-37); Bilirubin Direct 0.1 mg/dL (0.0-0.5); Bilirubin Total 0.3 mg/dL (0.0-1.0); Blood Urea Nitrogen 18 mg/dL (9-16); Carbon Dioxide 26 mmol/L (22-29); Chloride 101 mmol/L (96-108); Creatinine Clr Calc Pharmacy 57.8; Estimated Glomerular Filt Rate 38; Glucose Random 224 mg/dL (60-115); Potassium 4.4 mmol/L (3.3-5.1); Sodium 138 mmol/L (135-145); Total Protein 7.3 g/dL (6.5-8.0)
[2023-09-09 09:28] LABS: IDNOW Serial# 9DB6401D; Influenza A Negative (Negative); Influenza B2 Negative (Negative)
[2023-09-09 09:38] LABS: TSH reflex Free T4 1.27 uIU/mL (0.32-4.0)
[2023-09-09 09:42] LABS: Magnesium 1.4 mg/dL (1.6-2.6)
[2023-09-09] MEDS: Magnesium Sulfate/H2O 2 GM/50 ML PIGGYBACK IV (10:06)
[2023-09-09] MEDS: 0.9 % Sodium Chloride 1,000 ML 999 ML IVCONT (11:50)
--- NOTE | 2023-09-09 13:26 | MHC.EDTECH ---
pt changed over into hospital gown, bedding changed
--- NOTE | 2023-09-09 14:02 | PC.NURSE ---
PT at bedside.
--- NOTE | 2023-09-09 14:31 | PC.NURSE ---
Pt voided in urinal, specimen sent to lab.
[2023-09-09 14:34] LABS: Appearance Urine Clear; Color Urine Yellow; Glucose Urine UA 500 mg/dL (Negative); Leukocyte Esterase Urine Negative (Negative); Nitrite Urine Negative (Negative); UMIC TRIGGER UACC YES; Urine Blood Moderate (2+) (Negative); Urine Ketones Negative (Negative); Urine Protein >=1000 (4+) mg/dL (Neg-Trace)
[2023-09-09 14:36] LABS: Bacteria Urine None Seen (None Seen); RBC Urine >20 /HPF (0-2); Squamous Epithelial Cell Urine 0-2 /HPF (0-2); WBC Urine 0-5 /HPF (0-5)
[2023-09-09 14:49] LABS: Amphetamine Screen Urine Not Detected (Not Detect); Barbiturates, Urine Not Detected (Not Detect); Benzodiazepines Screen Urine Not Detected (Not Detect); Buprenorphine Scr Not Detected (Not Detect); Cannabinoid Screen Urine Not Detected (Not Detect); Cocaine Screen Urine Not Detected (Not Detect); Fentanyl, urine Not Detected (Not Detect); Methadone Screen, Urine Not Detected (Not Detect); Opiate Screen Urine Not Detected (Not Detect); Oxycodone Screen Urine Not Detected (Not Detect); Phencyclidine Screen Urine Not Detected (Not Detect)
--- NOTE | 2023-09-09 14:53 | PC.NURSE ---
family and patient understanding of need for short term rehab. ambulated w/ PT using walker.
--- NOTE | 2023-09-09 18:34 | MHC.CM.ED ---
CMmet with patient and mother. Pt had a fall at home. Recently at [facility]08/[facility]. D/C with [facility] for SN/PT. Pt had one PT session and refused more. Pt lives in a 2 family home with his mother. Normally lives upstairs, but has been staying with his mother since his recent hospitalization. Uses no DME. HCP is on file. No changes requested. PCP is Dr. Fan. Pt is agreeable to [facility]. Local referrals placed that contract with [facility]. Pt will need MDS. CM will follow for discharge planning.
[2023-09-09] MEDS: Omeprazole 40 MG CAPSULE.DR PO (19:13)
--- NOTE | 2023-09-09 19:59 | PC.NURSE ---
Addendum entered by Silvia Torres RN 09/10/23 05:44: Patient incontinent x2 of odorless yellow urine despite frequently offering assistance with urinal overnight. Bed bath and bed change performed. Pt denies pain. BP improved after 1x po lopressor given per PA earlier in shift. Pt resting in bed at this time without distress. Addendum entered by Silvia Torres RN 09/09/23 22:04: Assumed care of patient at 19:00. Pt hypertensive this evening. Denies pain or other issues. Is A&Ox1, very vague, a poor historian. When asked year or month and place he stated Hmm, let me think on it and required reorienting. Many responses patient provides are Yes or No . Speech is clear. Neuros intact despite disorientation. MAEE. +radial and dp pulses, +cms. Breathing is even and unlabored without distress. Tolerating diabetic diet without n/v. Telephone Maintainer inquired of POCs which were deferred by Covering PA as pt is not on insulin (is on scheduled metformin). PA Leopoldo Mcintosh notified of BP and disorientation. Awaiting further orders at this time. Afebrile. Right dorsal surface diabetic foot ulcer has DSD that is c/d/i without drainage or odor, present on arrival to unit. Pt is resting in bed at this time. Bed alarm on and safety measures in place. Original Note: Patient arrived to ED overflow just prior to evening shift change ~1835. 1730 magnesium not stocked in overflow pyxis. Pharmacy called and med requested, waiting to be stocked at this time.
[2023-09-09] MEDS: metFORMIN HCl 1,000 MG TABLET 1000 MG PO (20:41)
[2023-09-09] MEDS: Magnesium Oxide 400 MG TABLET 800 MG PO (20:41)
[2023-09-09] MEDS: Metoprolol Tartrate 50 MG TABLET PO (22:49)
[2023-09-10] MEDS: Omeprazole 40 MG CAPSULE.DR PO ×2 (05:26→17:41)
[2023-09-10 05:43] VITALS: BP 154/69; PULSE 68; RESP 18; TEMP 36.8; O2SAT 96
[2023-09-10 07:51] VITALS: BP 176/94; PULSE 69; RESP 14; TEMP 37.1; O2SAT 98
[2023-09-10] MEDS: Metoprolol Succinate ER 50 MG TAB.ER.24H PO (08:09)
[2023-09-10] MEDS: metFORMIN HCl 1,000 MG TABLET 1000 MG PO (08:09)
[2023-09-10] MEDS: Magnesium Oxide 400 MG TABLET 800 MG PO ×2 (08:09→17:41)
[2023-09-10 09:48] LABS: Anion Gap 12 (12-20); Blood Urea Nitrogen 16 mg/dL (9-16); Calcium 8.7 mg/dL (8.4-10.2); Carbon Dioxide 23 mmol/L (22-29); Chloride 105 mmol/L (96-108); Creatinine Clr Calc Pharmacy 61.5; Estimated Glomerular Filt Rate 41; Glucose Random 148 mg/dL (60-115); Magnesium 1.5 mg/dL (1.6-2.6); Potassium 4.2 mmol/L (3.3-5.1); Sodium 136 mmol/L (135-145)
--- NOTE | 2023-09-10 11:58 | MHC.CM.ED ---
Patient remains in ER overflow. The following facilities are able to offer a bed: [facility], [facility], [address] [place] [address], [facility], [facility], [facility], [facility], [place], and [facility] are all able to offer a bed. These options were discussed. [facility] is 1st choice and has been asked to obtain insurance auth. Continue to monitor for d/c needs.
[2023-09-10 14:00] VITALS: BP 146/74; PULSE 71; RESP 16; TEMP 35.9; O2SAT 99
[2023-09-10 19:57] VITALS: BP 172/82; PULSE 71; TEMP 37.1; O2SAT 97
[2023-09-10] MEDS: metFORMIN HCl 1,000 MG TABLET 500 MG PO (21:30)
[2023-09-11] MEDS: Omeprazole 40 MG CAPSULE.DR PO (05:49)
[2023-09-11 06:00] VITALS: BP 141/77; PULSE 72; RESP 16; TEMP 36.6; O2SAT 98
[2023-09-11] MEDS: metFORMIN HCl 1,000 MG TABLET 500 MG PO (07:33)
[2023-09-11] MEDS: Metoprolol Succinate ER 50 MG TAB.ER.24H PO (07:33)
[2023-09-11 07:35] VITALS: BP 150/80; PULSE 72; RESP 16; TEMP 36.7; O2SAT 97
[2023-09-11] MEDS: Magnesium Oxide 400 MG TABLET 800 MG PO (07:54)
--- NOTE | 2023-09-11 09:17 | PC.NURSE ---
patient resting quietly in hospital bed, respirations equal and unlabored. patient is alert and oriented, VSS, ate breakfast. medicated per MAR
--- NOTE | 2023-09-11 09:23 | MHC.CM.ED ---
Insurance auth has been obtained by [facility]. Patient can leave at 1230pm. [facility] booked. [facility]. Patient, Cristy LEYVA and Martina LISA aware. Continue to monitor for d/c needs.
--- NOTE | 2023-09-11 10:59 | PC.NURSE ---
family magali bedside visiting, aware of plan for patient and transfer at 1230 to [facility]
[2023-09-11 11:36] VITALS: BP 150/80; PULSE 72; RESP 16; TEMP 36.7; O2SAT 97
== END 2023-09-11 12:02 ==
PROVIDERS: Physician Assistant; Physician Assistant Medical; Emergency Provider Emergency Medicine; PCP Nurse Practitioner Family
DX: E83.42 Hypomagnesemia (principal); R53.1 Weakness; R41.82 Altered mental status, unspecified; I48.0 Paroxysmal atrial fibrillation; I10 Essential (primary) hypertension; F17.210 Nicotine dependence, cigarettes, uncomplicated; M54.2 Cervicalgia; R51.9 Headache, unspecified; R26.2 Difficulty in walking, not elsewhere classified; R11.2 Nausea with vomiting, unspecified; Z79.01 Long term (current) use of anticoagulants; Z79.899 Other long term (current) drug therapy; Z11.52 Encounter for screening for COVID-19
CPT/HCPCS: 36415; 70450; 72125; 80048; 80076; 80307; 81001; 82550; 83735; 84443; 84484; 85025; 87502; 87635; 93005; 96361; 96365; 96366; 97162; 99285; J3475

== ENCOUNTER → 2023-09-09 08:39 | Outpatient (BNV) | payer OTHER, SELFPAY | PROVIDERS: Emergency Provider Emergency Medicine; PCP Nurse Practitioner Family; Visit Provider Internal Medicine Cardiovascular Disease | DX: R94.31 Abnormal electrocardiogram [ECG] [EKG] (principal) | CPT/HCPCS: 93010 ==

== ENCOUNTER 2023-11-15 12:37 | Outpatient (AMB) | payer MEDICARE, MEDICAID, SELFPAY ==
[2023-11-15 12:48] VITALS: BP 150/98; PULSE 89; O2SAT 98; BMI 28.7
--- NOTE | 2023-11-15 12:48 | MHC.PC.OV ---
Vital Signs 11/15/23 12:48 Height 6 ft 3 in Weight 230 lb BMI 28.7 BP 150/98 H Blood Pressure Location Lt brachial Position Sitting Pulse 89 Pulse Source Pulse Oximeter Pulse Oximetry (%) 98 Oxygen Delivery Method Room Air Intake Visit Reasons: Discharge [facility] 11/10 Global Cmo Required: No Accompanied by: Spouse Allergies No Known Allergies [No Known Allergies*] Allergy (Verified 11/15/23 12:52) Tobacco use date assessed: 11/15/23 Dental Screening Dental Screen Date: 11/15/23 Did you have a dental visit in the last 12 months?: No Did you have a dental problem in the last 6 months where you did not have access to dental care?: No Was dental information given to patient?: Yes HPI HPI Comments History of Present Illness Details 58 y/o male patient who presents to the clinic for follow up. He was admitted on 08/25/23 - 09/01/23 at [facility] after he was found on the ground by his mother. He had been Vomiting, diarrhea and not eating well for few days. While in the hospital was treated for IRAIDA, Low Potassium/Magnesium, HTN and DM foot Ulcer. [facility] was then [facility] for further care. He was admitted there from 10/10 -11/10. He is currently back home with his Mother. Today he is accompanied by Mother and Ex-Girlfriend. Family is requesting Services such as VNA, [facility] and Physical therapy. Mother wondering if Patient should continue taking his MG supp - I will order labs today. [facility] Medical History Obesity (BMI 30-39.9) Benign essential hypertension Diabetes mellitus Type II diabetes mellitus Uncontrolled diabetes mellitus Paroxysmal atrial fibrillation Diabetic foot infection COVID-19 Surgical History No pertinent past surgical history Family History Mother No problems noted. Father No problems noted. Social History Household Members: None Housing: Apartment Do you presently have visiting nurse or other home services: No Unable to assess alcohol history related to: Refusing to respond Alcohol intake: former Patient Tobacco Use Status: Former Tobacco user (Pt quit 2 monnths ago) Tobacco use type: Cigarette Cigarette Packs Per Day: 0.5 Cigarettes Per Day: 10.0 e-Cigarette/Vaping Use: Never Used Second Hand Smoke Exposure: No service: No Current occupational status: unemployed Cognitive needs: No Hearing needs: No Vision needs: No Questionnaire PHQ-9 Over the last 2 weeks, how often have you been bothered by any of the following problems? 1. Little interest or pleasure in doing things: more than half the days 2. Feeling down, depressed, or hopeless: not at all 3. Trouble falling or staying asleep, or sleeping too much: not at all 4. Feeling tired or having little energy: not at all 5. Poor appetite or overeating: not at all 6. Feeling bad about yourself - or that you are a failure or have let yourself or your family down: not at all 7. Trouble concentrating on things, such as reading the newspaper or watching television: several days 8. Moving or speaking so slowly that other people could have noticed. Or the opposite - being so fidgety or restless that you have been moving around a lot more than usual: nearly every day 9. Thoughts that you would be better off or of hurting yourself in some way: not at all Total score: 6 [id number] - PHQ-9 Billing: Yes Source: Developed by Drs. Kareem Bartlett, Kait Hickman, Reji Green and colleagues, with an educational michael from [employer]. Thrive Questionnaire Date Thrive assessed: 08/26/23 AUDIT C Alcohol Use Questionnaire (AUDIT-C) 1. How often do you have a drink containing alcohol?: Never 3. How often do you have six or more drinks on one occasion?: Never Total Score: 0 ROQUE-7 AMB Questionnaire ROQUE-7 Date ROQUE - 7 assessed: 11/15/23 Feeling nervous, anxious, or on edge: 0 = Not at all Not being able to stop or control worryin = Not at all Worrying too much about different things: 0 = Not at all Trouble relaxin = Not at all Being so restless that it is hard to sit still: 0 = Not at all Becoming easily annoyed or irritable: 0 = Not at all Feeling afraid as if something awful might happen: 0 = Not at all Total ROQUE-7 score (0-4 normal; 5-9 mild; 10-14 moderate; 15-21 severe): 0 Source: Developed by Drs. Kareem Bartlett, Kait Hickman, Reji Green and colleagues, with an educational michael from [employer]. ROQUE-7 Assessment Billing ROQUE-7 Assessment Tool: ROQUE-7 Assessment 20614 Review of Systems Const All systems reviewed & are unremarkable except as noted in HPI and below Physical exam (Primary Care) Vital Signs: Last Vital Signs Pulse 89 11/15/23 12:48 BP 150/98 H 11/15/23 12:48 Pulse Ox 98 11/15/23 12:48 Oxygen Delivery Method Room Air 11/15/23 12:48 BMI result Body Mass Index 28.7 Tobacco/Smoking Status: Tobacco use Status Tobacco use date assessed 11/15/23 11/15/23 13:01 Patient Tobacco Use Status Former Tobacco user (Pt quit 11/15/23 13:01 2 monnths ago) Tobacco use type Cigarette 11/15/23 13:01 e-Cigarette/Vaping Use Never Used 11/15/23 13:01 PHQ-9: PHQ-9 Score PHQ-9: Total score 6 11/15/23 13:02 Thrive Assessment: Date of Thrive Assessment Date Thrive assessed 08/26/23 11/15/23 13:01 Const General: cooperative and no acute distress Orientation/consciousness: patient oriented x3 Resp Effort & Inspection: normal respiratory effort and able to speak in complete sentences Auscultation: clear to auscultation bilaterally Cardio Heart sounds: S1 normal heart sound present and S2 normal heart sound present Neuro General: patient oriented x3 and moves all extremities Psych Speech and movement: Normal speech and movement present Vital Signs: Last Vital Signs Pulse 89 11/15/23 12:48 BP 150/98 H 11/15/23 12:48 Pulse Ox 98 11/15/23 12:48 Oxygen Delivery Method Room Air 11/15/23 12:48 BMI result Body Mass Index 28.7 Const General: cooperative and no acute distress Orientation/consciousness: patient oriented x3 Resp Effort & Inspection: normal respiratory effort and able to speak in complete sentences Auscultation: clear to auscultation bilaterally Cardio Heart sounds: S1 normal heart sound present and S2 normal heart sound present Neuro Other: Walks with a Walker General: patient oriented x3 and moves all extremities Psych Speech and movement: Normal speech and movement present Assessment and Plan Assessment & Plan (1) Hypomagnesemia: Code(s): E83.42 - Hypomagnesemia Plan: Ordered labs If Electrolytes still low, will then continue with Supp. (2) Hypokalemia: Code(s): E87.6 - Hypokalemia Plan: Ordered labs If Electrolytes still low, will then continue with Supp. (3) Weakness: Code(s): R53.1 - Weakness Plan: Will ask PCP to place referral for VNA, PT and [facility] (4) Diabetic foot ulcer: Code(s): E11.621 - Type 2 diabetes mellitus with foot ulcer; L97.509 - Non-pressure chronic ulcer of other part of unspecified foot with unspecified severity Qualifiers: Diabetic foot ulcer location: heel Diabetes mellitus type: type 2 Laterality: left Non-pressure ulcer stage: unspecified non-pressure ulcer stage Qualified Code(s): E11.621 - Type 2 diabetes mellitus with foot ulcer; L97.429 - Non-pressure chronic ulcer of left heel and midfoot with unspecified severity Plan: Will need wound Care (5) Diabetes mellitus: Code(s): E11.9 - Type 2 diabetes mellitus without complications Qualifiers: Diabetes mellitus type: type 2 Diabetes mellitus detention insulin use: with superintendent container terminal use Diabetes mellitus complication status: with hyperglycemia Qualified Code(s): E11.65 - Type 2 diabetes mellitus with hyperglycemia; Z79.4 - senior living (current) use of insulin Plan: Will need intermediate for medication management. Orders: Orders Comprehensive Met. Panel Today E83.42 - Hypomagnesemia, E87.6 - Hypokalemia Complete Blood Count Auto Diff Today E83.42 - Hypomagnesemia, E87.6 - Hypokalemia Coding Level of Care Code Est Pt Level 4 (69672) Diagnoses Hypomagnesemia E83.42 Hypokalemia E87.6 Weakness R53.1 Diabetic ulcer of left heel associated with type 2 diabetes mellitus, unspecified ulcer stage E11.621; L97.429 Diabetic foot ulcer location: heel Diabetes mellitus type: type 2 Laterality: left Non-pressure ulcer stage: unspecified non-pressure ulcer stage Type 2 diabetes mellitus with hyperglycemia, with long-term current use of insulin E11.65; Z79.4 Diabetes mellitus type: type 2 Diabetes mellitus superintendent container terminal insulin use: with superintendent container terminal use Diabetes mellitus complication status: with hyperglycemia Additional Codes ROQUE-7 Assessment Billing - ROQUE-7 Assessment Tool: ROQUE-7 Assessment 49522 ([id number]) Time Spent (min) 20 Comment Spent reviewing Hospital notes and Patient education
== END 2023-11-15 16:46 | disposition home or self-care (01) ==
PROVIDERS: PCP Internal Medicine; Visit Provider Nurse Practitioner Family
DX: E11.621 Type 2 diabetes mellitus with foot ulcer (principal); L97.429 Non-pressure chronic ulcer of left heel and midfoot with unspecified severity; E11.65 Type 2 diabetes mellitus with hyperglycemia; Z79.4 Long term (current) use of insulin; E83.42 Hypomagnesemia; E87.6 Hypokalemia; R53.1 Weakness
CPT/HCPCS: 99214

== ENCOUNTER 2023-11-19 10:20 | Outpatient (REF) | payer MEDICARE, MEDICAID, SELFPAY ==
[2023-11-19 10:35] LABS: MANUAL DIFF FLAG NO
[2023-11-19 11:21] LABS: Basophils Absolute Auto 0.1 X10*3/uL (0.0-0.2); Basophils Percent Auto 1.2 % (0-2); Eosinophils Absolute Auto 0.2 X10*3/uL (0.0-0.4); Hematocrit 42.5 % (42.0-52.0); Hemoglobin 13.8 g/dl (14.0-18.0); Imm Gran Abs Auto 0.03 X10*3/uL (0.00-0.03); Imm Gran Pct Auto 0.4 % (0.0-0.4); Lymphocytes Absolute Auto 1.3 X10*3/uL (1.2-4.9); Lymphocytes Percent Auto 15.5 % (20-40); Mean Corpuscular HGB Conc 32.5 g/dl (31.0-36.0); Mean Platelet Volume 9.8 fL (9.4-12.4); Monocytes Absolute Auto 0.5 X10*3/uL (0.1-1.2); Neutrophils Absolute Auto 6.1 x10*3/uL (2.0-8.3); Neutrophils Percent Auto 74.9 % (45-73); Platelet Count 381 X10*3/uL (160-400); Red Blood Count 5.12 X10*6/uL (4.60-5.80); Red Cell Distribution Width 14.1 % (11.0-16.0); White Blood Count 8.2 X10*3/uL (4.8-10.8)
[2023-11-19 12:07] LABS: Alanine Aminotransferase 8 U/L (0-40); Albumin Level 3.4 g/dL (3.5-5.0); Alkaline Phosphatase 70 U/L (39-117); Anion Gap 11 (12-20); Aspartate Amino Transferase 16 U/L (5-37); Bilirubin Total 0.3 mg/dL (0.0-1.0); Blood Urea Nitrogen 27 mg/dL (9-16); Calcium 9.2 mg/dL (8.4-10.2); Carbon Dioxide 30 mmol/L (22-29); Chloride 100 mmol/L (96-108); Estimated Glomerular Filt Rate 37; Glucose Random 129 mg/dL (60-115); Potassium 4.3 mmol/L (3.3-5.1); Sodium 137 mmol/L (135-145); Total Protein 7.8 g/dL (6.5-8.0)
== END 2023-11-19 10:21 | disposition home or self-care (01) ==
LOC: HO.LAB 10:20
PROVIDERS: PCP Internal Medicine; Visit Provider Nurse Practitioner Family
DX: E87.6 Hypokalemia (principal); E83.42 Hypomagnesemia
CPT/HCPCS: 36415; 80053; 85025

== ENCOUNTER 2023-12-25 10:59 | Outpatient (AMB) | payer MEDICARE, MEDICAID, SELFPAY ==
[2023-12-25 11:10] VITALS: BP 130/78; PULSE 88; BMI 28.1
--- NOTE | 2023-12-25 11:10 | A.OFFVIS_ITS ---
Vital Signs 12/25/23 11:10 Height 6 ft 3 in Weight 224 lb 13.944 oz BMI 28.1 BP 130/78 Blood Pressure Location Lt brachial Position Sitting Pulse 88 Pulse Source Monitor Intake Visit Reasons: follow up after dc rehab Allergies No Known Allergies [No Known Allergies*] Allergy (Verified 11/15/23 12:52) Medication List - Last Reconciled 12/25/23 by Clemente Ferrari MD apixaban (Eliquis) 5 mg PO BID 30 days blood sugar diagnostic (FreeStyle Lite Strips) As directed 3 times a day blood-glucose meter,continuous (FreeStyle Dedra 3 [place]) As directed blood-glucose sensor (FreeStyle Dedra 3 Sensor device) As directed flash glucose sensor (FreeStyle Dedra 14 Day Sensor kit) As directed gabapentin 100 mg PO BID PRN hydralazine 25 mg PO DAILY magnesium oxide 800 mg (2 x 400 mg (241.3 mg magnesium)) PO BIDPC metformin 1,000 mg PO BID metoprolol succinate ER 75 mg (3 x 25 mg) PO DAILY 30 days omeprazole 20 mg PO BID HPI Comments Details: Silvestre was referred here to recent hospitalization on mom's request. Unclear exact reason for follow-up but mom is worried about elevated blood pressure readings at home. Today's blood pressure reading your are within normal range. Patient also was recently admitted with stroke as per the mom but has recovered with his right lower extremity weakness. Still has speech disturbances. Was started on oral anticoagulation therapy with Eliquis given his prior history of atrial fibrillation 2 years ago. No follow-up since then. Also did not have any follow-up testing such as echocardiogram. He was recently admitted with also acute kidney injury and subsequently also diagnose esophagitis. Currently having no bleeding issues on new neurologic symptoms. Denies any prolonged palpitations. Denies any other heart failure symptoms with no exertional chest pain or shortness of breath but he is limited with exercise capacity within the house, walks with help of a walker. Also has prior history of orthostatic hypotension although there is no low blood pressure or orthostatic symptoms reported at home. Denies orthopnea, PND, leg edema. He does not drink much fluid orally. [facility] Medical History Obesity (BMI 30-39.9) Benign essential hypertension Diabetes mellitus Type II diabetes mellitus Uncontrolled diabetes mellitus Paroxysmal atrial fibrillation Diabetic foot infection COVID-19 Surgical History No pertinent past surgical history Family History Mother No problems noted. Father No problems noted. Social History Household Members: None Housing: Apartment Do you presently have visiting nurse or other home services: No Unable to assess alcohol history related to: Refusing to respond Alcohol intake: former Patient Tobacco Use Status: Former Tobacco user (Pt quit 2 monnths ago) Tobacco use type: Cigarette Cigarette Packs Per Day: 0.5 Cigarettes Per Day: 10.0 e-Cigarette/Vaping Use: Never Used Second Hand Smoke Exposure: No service: No Current occupational status: unemployed Cognitive needs: No Hearing needs: No Vision needs: No Review of Systems Const Denies weakness ENT Denies dizziness Card Denies chest pain, Denies chest pain with activity, Denies syncope, Denies rapid heart rate, Denies pedal edema, Denies edema, Denies leg edema, Denies lightheadedness, Denies palpitations, Denies dyspnea, Denies dyspnea on exertion and Denies orthopnea Resp Denies cough, Denies dyspnea and Denies dyspnea on exertion GI Denies hematochezia and Denies change in stool character Musc Denies abnormal gait, Denies muscle cramps, Denies muscle weakness, Denies numbness, Denies radiating pain into limb and Denies tingling Neuro Denies abnormal gait, Denies dizziness, Denies syncope, Denies numbness, Denies tingling and Denies weakness Endo Denies palpitations Physical Exam Vital Signs: Last Vital Signs Pulse 88 12/25/23 11:10 BP 130/78 12/25/23 11:10 BMI result Body Mass Index 28.1 Const General: cooperative, comfortable, alert, awake and poor hygiene Nutritional Appearance: overweight Orientation/consciousness: patient oriented x3 Limitations: ambulation with walker Neck Neck: Yes trachea midline, Yes supple and Yes no JVD Resp Effort & Inspection: normal respiratory effort Auscultation: clear to auscultation bilaterally Cardio Jugular venous distension: no JVD Rate: regular rate Rhythm: regular rhythm Heart sounds: S1 normal heart sound present, S2 normal heart sound present, no click, no gallops, no murmurs and no rubs GI Auscultation: normal bowel sounds Neuro General: patient oriented x3 and no focal motor deficits Office Procedures EKG Details: EKG shows normal sinus rhythm with septal QS pattern with ST sagging in multiple leads consistent with repolarization abnormality. [id number], Complete Assessment & Plan Assessment & Plan (1) Paroxysmal atrial fibrillation: Code(s): I48.0 - Paroxysmal atrial fibrillation Category: Medical Plan: Prior history of paroxysmal atrial fibrillation with no follow-up since then and recently admitted with a stroke which she is recovering from. Agree fully with oral anticoagulation with [place] given his risk factors in his stroke. Needs further workup with an echocardiogram. Will be scheduled in near future for the same. He is not having any symptoms related to at this point time and would avoid any additional pharmacotherapy. Continue metoprolol therapy. Avoidance of stimulants was discussed. Management of atrial fibrillation was discussed. (2) Benign essential hypertension: Code(s): I10 - Essential (primary) hypertension Category: Medical Plan: Hypertension with labile blood pressure with some readings at home being significantly elevated. Advise mom to by a appropriate blood pressure cuff with arm monitoring. Will send a prescription for the same. Meanwhile will increase hydralazine to 25 mg b.i.d. which is the correct dose for [id number] blood pressure control. Most likely labile blood pressure is a component of autonomic dysfunction related to diabetes. Continue aggressive diabetes management goal hemoglobin A1c less than 7%. I have strongly encouraged him to increase his fluid intake. Orthostatic precautions were discussed. Follow up in the clinic in 1 year's time, sooner p.r.n.. Thank you for allowing me to partake in his care Orders: Orders CA echo transthoracic complete Today I48.0 - Paroxysmal atrial fibrillation Medications: New blood pressure test kit-large As directed 1 ea 0RF Changed From hydralazine 25 mg PO DAILY 90 tabs 0RF To hydralazine 25 mg PO BID 180 tabs 3RF Coding Level of Care Code Est Pt Level 4 (26374) Diagnoses Paroxysmal atrial fibrillation I48.0 Benign essential hypertension I10 CPT Codes EKG - CPT: 58600-[id number], Complete ([id number])
== END 2023-12-25 11:41 | disposition home or self-care (01) ==
PROVIDERS: PCP Internal Medicine; Visit Provider Internal Medicine Cardiovascular Disease
DX: I48.0 Paroxysmal atrial fibrillation (principal); I10 Essential (primary) hypertension
CPT/HCPCS: 93010; 99214

== ENCOUNTER → 2023-12-25 10:59 | Outpatient (BNVA) | payer MEDICARE, MEDICAID, SELFPAY | PROVIDERS: PCP Internal Medicine; Visit Provider Internal Medicine Cardiovascular Disease | DX: I48.0 Paroxysmal atrial fibrillation (principal); I10 Essential (primary) hypertension; R94.31 Abnormal electrocardiogram [ECG] [EKG] | CPT/HCPCS: 93005; 99212 ==

== ENCOUNTER 2024-01-02 11:59 | Outpatient (AMB) | payer MEDICARE, MEDICAID, SELFPAY ==
[2024-01-02 12:16] VITALS: BP 130/78; PULSE 92; O2SAT 96; BMI 29.9
--- NOTE | 2024-01-02 12:16 | MHC.PC.OV ---
Vital Signs 01/02/24 12:16 Height 6 ft 3 in Weight 239 lb 6 oz BMI 29.9 BP 130/78 Blood Pressure Location Lt brachial Position Sitting Pulse 92 Pulse Source Pulse Oximeter Pulse Oximetry (%) 96 Oxygen Delivery Method Room Air Intake Visit Reasons: PE rescheduled from 04/09 Intake Note: Pt is here for PE. Requesting letter for Jury Duty for 01/13/24 at 8:00 am, Badge # [id number] PIN# [id number] Knot Tying Operator Required: No Accompanied by: Family/Other Allergies No Known Allergies [No Known Allergies*] Allergy (Verified 01/05/24 21:02) Medication List - Last Reconciled 01/05/24 by Félix Carlton MD apixaban (Eliquis) 5 mg PO BID 30 days blood pressure test kit-large As directed blood sugar diagnostic (FreeStyle Lite Strips) As directed 3 times a day blood-glucose meter,continuous (FreeStyle Dedra 3 [place]) As directed blood-glucose sensor (FreeStyle Dedra 3 Sensor device) As directed flash glucose sensor (FreeStyle Dedra 14 Day Sensor kit) As directed gabapentin 100 mg PO BID PRN hydralazine 25 mg PO BID magnesium oxide 800 mg (2 x 400 mg (241.3 mg magnesium)) PO BIDPC metformin 1,000 mg PO BID metoprolol succinate ER 75 mg (3 x 25 mg) PO DAILY 30 days omeprazole 20 mg PO BID Tobacco use date assessed: 11/15/23 Dental Screening Dental Screen Date: 11/15/23 HPI PE rescheduled from 04/09 HPI Details Patient comes in today for his annual physical examination - he was last seen here over 2 years ago on 06/27/2021 He reportedly had a CVA recently (unclear exactly when) with some residual right lower extremity weakness and is currently on anticoagulation Tx with Eliquis States that he ambulates with a walker at home although he seems to have limited exercise capacity and I suspect also limited activity level even prior to his CVA He has Hx of PAF and prior to his CVA, was not on anticoagulation in the past and has been non-compliant with his follow up visits He was also seeing endocrinology in the past for his diabetes but has not followed up in a couple of years now He is scheduled to be seen by endocrinology again next week and is requesting for a referral for his upcoming visit Patient states that he currently feels okay He denies any headaches or dizziness Denies any chest pains, no shortness of breath No nausea/vomiting, no abdominal pain No change in bowel habits noted He denies any acute urinary symptoms He was seen by Cardiology for consultation last week and is being sent for echocardiogram for further evaluation He has never had a screening colonoscopy done in the past He did have an upper endoscopy done with Dr. Cristina in 09/12/2023 and was noted to have erosive esophagitis and gastritis and was recommended to undergo repeat EGD in 3 months to assess for healing His family is requesting for a letter of exemption from jury duty for patient and would also like him to get his flu shot today [facility] Medical History (Updated 01/05/24 @ 21:59 by Félix Carlton MD) Chronic kidney disease (CKD), stage III (moderate) Overweight (BMI 25.0-29.9) Obesity (BMI 30-39.9) Benign essential hypertension Diabetes mellitus Type II diabetes mellitus Uncontrolled diabetes mellitus Paroxysmal atrial fibrillation Diabetic foot infection COVID-19 Surgical History No pertinent past surgical history Family History Mother No problems noted. Father No problems noted. Social History Household Members: None Housing: Apartment Do you presently have visiting nurse or other home services: No Unable to assess alcohol history related to: Refusing to respond Alcohol intake: former Patient Tobacco Use Status: Former Tobacco user Tobacco use type: Cigarette Cigarette Packs Per Day: 0.5 Cigarettes Per Day: 10.0 e-Cigarette/Vaping Use: Never Used Second Hand Smoke Exposure: No service: No Current occupational status: unemployed Cognitive needs: No Hearing needs: No Vision needs: No Questionnaire PHQ-9 Over the last 2 weeks, how often have you been bothered by any of the following problems? 1. Little interest or pleasure in doing things: several days 2. Feeling down, depressed, or hopeless: not at all 3. Trouble falling or staying asleep, or sleeping too much: not at all 4. Feeling tired or having little energy: not at all 5. Poor appetite or overeating: not at all 6. Feeling bad about yourself - or that you are a failure or have let yourself or your family down: not at all 7. Trouble concentrating on things, such as reading the newspaper or watching television: several days 8. Moving or speaking so slowly that other people could have noticed. Or the opposite - being so fidgety or restless that you have been moving around a lot more than usual: several days 9. Thoughts that you would be better off or of hurting yourself in some way: not at all Total score: 3 Depression Screening Interpretation: Negative Depression Screening Done: Yes 05396 - PHQ-9 Billing: Yes Source: Developed by Drs. Kareem Bartlett, Kait Hickman, Reji Green and colleagues, with an educational michael from [employer]. Thrive Questionnaire Date Thrive assessed: 01/02/24 I am a: Patient What is your living situation today?: I have a steady place to live Within the past 12 months, did the food you bought not last and you didn't have the money to get more?: Never true Within the past 12 months, did you worry whether your food would run out before you got money to buy more?: Never true Do you have trouble paying for medicines?: No Do you have trouble getting transportation to medical appointments?: No Do you have trouble paying your heating and electricity bill?: No Do you have trouble taking care of your child, family member or friend?: No Do you have trouble with day-to-day activities such as bathing, preparing meals, shopping, managing finances, etc.?: No Are you currently unemployed and looking for a job?: No Are you interested in more education?: No Please select the resources that you would like help with: None Currently or been in a relationship where the following occur: No concerns reported THRIVE Score: 0 AUDIT C Alcohol Use Questionnaire (AUDIT-C) 1. How often do you have a drink containing alcohol?: Never Total Score: 0 Score Reviewed/Action Taken: Yes ROQUE-7 AMB Questionnaire ROQUE-7 Date ROQUE - 7 assessed: 11/15/23 Feeling nervous, anxious, or on edge: 1 = Several days Not being able to stop or control worryin = Not at all Worrying too much about different things: 0 = Not at all Trouble relaxin = Not at all Being so restless that it is hard to sit still: 0 = Not at all Becoming easily annoyed or irritable: 1 = Several days Feeling afraid as if something awful might happen: 0 = Not at all Total ROQUE-7 score (0-4 normal; 5-9 mild; 10-14 moderate; 15-21 severe): 2 Source: Developed by Drs. Kareem Bartlett, Kait Hickman, Reji Green and colleagues, with an educational michael from [employer]. Review of Systems Const Denies chills, Denies fatigue, Denies fever(s) and Denies headache(s) Eyes Denies blurry vision, Denies change in vision, Denies irritation and Denies itchy eyes ENT Denies dysphagia, Denies dizziness, Denies otalgia, Denies headache(s), Denies neck pain, Denies odynophagia and Denies sore throat Card Denies chest pain, Denies palpitations and Denies dyspnea Resp Denies chest congestion, Denies cough, Denies dyspnea and Denies wheezing GI Denies abdominal pain, Denies constipation, Denies dysphagia, Denies heartburn, Denies diarrhea, Denies nausea, Denies odynophagia and Denies vomiting Denies dysuria, Denies nocturia and Denies urinary frequency Musc Denies back pain, Denies arthralgias and Denies neck pain Skin/Breast Denies lesions and Denies rash Neuro Details: (+) residual right lower extremity weakness Denies dizziness and Denies headache(s) Psych Denies anxiety and Denies depression Endo Denies fatigue and Denies palpitations Aller/Immun Denies itchy eyes and Denies wheezing Physical exam (Primary Care) Vital Signs: Last Vital Signs Pulse 92 01/02/24 12:16 BP 130/78 01/02/24 12:16 Pulse Ox 96 01/02/24 12:16 Oxygen Delivery Method Room Air 01/02/24 12:16 BMI result Body Mass Index 29.9 Tobacco/Smoking Status: Tobacco use Status Tobacco use date assessed 11/15/23 01/02/24 12:16 Patient Tobacco Use Status Former Tobacco user (Pt quit 01/02/24 12:16 2 monnths ago) Tobacco use type Cigarette 01/02/24 12:16 e-Cigarette/Vaping Use Never Used 01/02/24 12:16 PHQ-9: PHQ-9 Score PHQ-9: Total score 3 01/02/24 12:25 Depression Screening Interpretation: Negative Thrive Assessment: Date of Thrive Assessment Date Thrive assessed 08/26/23 01/02/24 12:16 Currently or been in a relationship where the following occur: No concerns reported Const General: no acute distress, alert and awake Orientation/consciousness: patient oriented x3 HENMT Head: Yes normocephalic and Yes atraumatic Ears: external ears normal, TM's normal bilaterally and EAC's normal General nose exam: No nasal discharge present Face and sinus: Yes normal facial exam and Yes sinuses nontender Teeth and gingiva: dentition normal Throat: Yes posterior oropharynx normal and Yes tonsils normal (no TP congestion) Eyes Eyelids: Yes eyelids normal Conjunctivae: conjunctivae normal Pupils: Equal, round and reactive pupils present EOM: EOMs intact bilaterally Neck Neck: Yes no lymphadenopathy and Yes supple Thyroid: Thyroid normal Resp Auscultation: clear to auscultation bilaterally, no rales and no wheezes Cardio Rate: regular rate Rhythm: regular rhythm Heart sounds: no murmurs GI Palpation (GI): Soft to palpation and nontender Auscultation: normal bowel sounds General: Yes no CVA tenderness Back/Spine/Pelvis Back: no CVA tenderness Thoracic/Lumbar Spine: No lumbar spinal tenderness Skin Lesions: no lesions Rashes: no rashes Neuro General: patient oriented x3, moves all extremities (but (+) residual weakness of the right lower extremity), no focal motor deficits and CN's II-XI intact bilaterally Cranial nerves: Yes Equal, round and reactive pupils present Cognition (Neuro): normal cognition Gait exam (Neuro): Normal gait present Extrem General: Yes no clubbing, cyanosis or edema Office Procedures Flu Questionnaire Does the patient have a severe egg allergy?: No Does the patient have severe life threatening allergies?: No Does the patient have a fever or illness today?: No Has the patient ever had Guillain-Lebeau Syndrome?: No Has the patient ever had any past reaction to a flu shot?: No Results AMB Hemoglobin A1c AMB Hemoglobin A1c 6.0 % Last Edit by NELDA Cr on 01/02/24 12:18 Immunizations Fluarix Triv [id number] (PF) 45 mcg (15 mcg x 3)/0.5 mL IM syringe Performing Provider: Félix Carlton MD [facility] Administered by: NELDA Cr on 01/02/24 12:17 Dose Route Admin Location Dispensed Lot Number Expiration Date NDC Bryologist 0.5 mL IM Right Deltoid 0.5 mL [id number] 09/21/24 [id number] [employer] VIS Given Date VIS Provided VIS Publication Date 01/02/24 Single Vaccine 20 Eligibility Eligibility Date Funding Source Not [facility] Eligible 01/02/24 Private Results Reviewed Results Reviewed: Laboratory Last Values Hgb A1c (Clinic) 6.0 % (4.0-6.0) 01/02/24 12:04 Coding Level of Care Code Est Pt Prev Care 40-64y(35481) Diagnoses Annual physical exam Z00.00 Type 2 diabetes mellitus with hyperglycemia, with long-term current use of insulin E11.65; Z79.4 Diabetes mellitus type: type 2 Diabetes mellitus intermediate school teacher insulin use: with intermediate school teacher use Diabetes mellitus complication status: with hyperglycemia Cerebrovascular accident (CVA), unspecified mechanism I63.9 CVA mechanism: unspecified Paroxysmal atrial fibrillation I48.0 Stage 3b chronic kidney disease N18.32 Chronic kidney disease stage 3 subtype: stage 3b (GFR 30-44) Benign essential hypertension I10 Esophagitis K20.90 Hypomagnesemia E83.42 Overweight (BMI 25.0-29.9) E66.3 Colon cancer screening Z12.11 Assessment & Plan Assessment & Plan (1) Annual physical exam: Code(s): Z00.00 - Encounter for general adult medical examination without abnormal findings Category: Medical Plan: Check labs He has never had a screening colonoscopy done in the past and his family would like to defer this for now until his more concerning current issues have been addressed but as he is going to be referred for repeat EGD, will see if these can both be done at the same time (2) Diabetes mellitus: Code(s): E11.9 - Type 2 diabetes mellitus without complications Category: Medical Qualifiers: Diabetes mellitus type: type 2 Diabetes mellitus intermediate school teacher insulin use: with intermediate school teacher use Diabetes mellitus complication status: with hyperglycemia Qualified Code(s): E11.65 - Type 2 diabetes mellitus with hyperglycemia; Z79.4 - dedicated intermodal truck driver (current) use of insulin Plan: His in-office HgbA1c done today is at 6.0% (his HgbA1c was at 8.5% back in August 2023 - goal is <6.5% Reinforced diabetic diet Continue Metformin 1000 mg BID for now although he may need to be taken off Metformin if his compromised renal function persists or gets worse as his most recent serum creatinine level was at 1.87 on 11/19/2023 He has an appointment coming up to see endocrinology next week and his family is requesting for a referral to cover this as he has not seen endocrinology in a couple of years - referral done (3) CVA (cerebral vascular accident): Code(s): I63.9 - Cerebral infarction, unspecified Category: Medical Qualifiers: CVA mechanism: unspecified Qualified Code(s): I63.9 - Cerebral infarction, unspecified Plan: Unclear as to when this actually occurred but patient apparently has some mild right lower extremity weakness as a result of this and is ambulating with a walker, especially when he is at home This is likely due to his paroxysmal AF and he is currently on Eliquis 5 mg BID (he was on Xarelto in the past but was not compliant with his Rx back then) (4) Paroxysmal atrial fibrillation: Code(s): I48.0 - Paroxysmal atrial fibrillation Category: Medical Plan: Continue Eliquis 5 mg BID for thromboembolism prophylaxis He was seen by Dr. Ferrari last week for cardiology evaluation and is being sent for echocardiogram for further evaluation (5) Chronic kidney disease (CKD), stage III (moderate): Code(s): N18.30 - Chronic kidney disease, stage 3 unspecified Category: Medical Qualifiers: Chronic kidney disease stage 3 subtype: stage 3b (GFR 30-44) Qualified Code(s): N18.32 - Chronic kidney disease, stage 3b Plan: His most recent GFR was at 37 a few weeks ago on 11/19/2023; serum creatinine was at 1.87 then Will recheck his labs in 4 months for follow up May also need to consider taking him off Metformin if his renal function does not improve or continues to decline (6) Benign essential hypertension: Code(s): I10 - Essential (primary) hypertension Category: Medical Plan: Reinforced low sodium diet - goal is systolic BP of 120 mm or less Continue Hydralazine 25 mg BID and Metoprolol ER 75 mg (3 x 25 mg tablets) QD (7) Esophagitis: Code(s): K20.90 - Esophagitis, unspecified without bleeding Category: Medical Plan: This was diagnosed on EGD (along with gastritis) by Dr. Cristina in August 2023 and have recommended that he undergo repeat EGD in 3 months to assess for healing and also test for [place]'s changes Continue Omeprazole 20 mg BID for now Will refer him back to Dr. Cristina for repeat EGD (8) Hypomagnesemia: Code(s): E83.42 - Hypomagnesemia Category: Medical Plan: Will recheck his serum magnesium level in a few months for follow up (9) Overweight (BMI 25.0-29.9): Code(s): E66.3 - Overweight Category: Medical Plan: Reinforced diet; exercise as weight loss are unrealistic given patient's physical issues (10) Colon cancer screening: Code(s): Z12.11 - Encounter for screening for malignant neoplasm of colon Category: Medical Plan: Patient has never had a screening colonoscopy done in the past As he is going to be referred for repeat EGD, will see if these can both be done at the same time - referral to GI done Plan As requested, flu vaccine given to patient today Follow up in 4 months Orders: Orders Influenza [id number] Immunization 01/02/24 Z23 - Encounter for immunization Lipid Panel 4 Months E78.00 - Pure hypercholesterolemia, unspecified Hemoglobin A1c 4 Months E11.9 - Type 2 diabetes mellitus without complications Magnesium 4 Months E83.42 - Hypomagnesemia Microalbumin, Random (w Creat) 4 Months E11.9 - Type 2 diabetes mellitus without complications Vitamin B12 and Folate 4 Months E53.8 - Deficiency of other specified B group vitamins UA CC w/rflx Micro + Cult 4 Months R30.0 - Dysuria AMB Hemoglobin A1c 01/02/24 E11.65 - Type 2 diabetes mellitus with hyperglycemia, Z79.4 - half-way (current) use of insulin Complete Blood Count Auto Diff 4 Months D64.9 - Anemia, unspecified Comprehensive [place]. 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
== END 2024-01-02 13:33 | disposition home or self-care (01) ==
PROVIDERS: PCP Internal Medicine; Visit Provider Internal Medicine
DX: Z00.00 Encounter for general adult medical examination without abnormal findings (principal); E11.65 Type 2 diabetes mellitus with hyperglycemia; N18.32 Chronic kidney disease, stage 3b; Z79.4 Long term (current) use of insulin; I48.0 Paroxysmal atrial fibrillation; Z86.73 Personal history of transient ischemic attack (TIA), and cerebral infarction without residual deficits; I10 Essential (primary) hypertension; K20.90 Esophagitis, unspecified without bleeding; E83.42 Hypomagnesemia; E66.3 Overweight; Z12.11 Encounter for screening for malignant neoplasm of colon

== ENCOUNTER → 2024-01-02 11:59 | Outpatient (BNVA) | payer MEDICARE, MEDICAID, SELFPAY | PROVIDERS: PCP Internal Medicine; Visit Provider Internal Medicine | DX: Z00.00 Encounter for general adult medical examination without abnormal findings (principal); Z23 Encounter for immunization; E11.65 Type 2 diabetes mellitus with hyperglycemia; I12.9 Hypertensive chronic kidney disease with stage 1 through stage 4 chronic kidney disease, or unspecified chronic kidney disease; E11.22 Type 2 diabetes mellitus with diabetic chronic kidney disease; N18.32 Chronic kidney disease, stage 3b; I63.9 Cerebral infarction, unspecified; I48.0 Paroxysmal atrial fibrillation; K20.90 Esophagitis, unspecified without bleeding; E83.42 Hypomagnesemia; E66.3 Overweight; Z68.29 Body mass index [BMI] 29.0-29.9, adult; Z71.3 Dietary counseling and surveillance; Z79.4 Long term (current) use of insulin | CPT/HCPCS: 83036; 90471; 90656; 96127; 99396 ==

== ENCOUNTER → 2024-01-08 14:13 | Outpatient (BNVA) | payer MEDICARE, MEDICAID, SELFPAY | PROVIDERS: PCP Internal Medicine; Visit Provider Internal Medicine | DX: E11.621 Type 2 diabetes mellitus with foot ulcer (principal); L97.429 Non-pressure chronic ulcer of left heel and midfoot with unspecified severity; L98.429 Non-pressure chronic ulcer of back with unspecified severity | CPT/HCPCS: 82947; 99212 ==

== ENCOUNTER → 2024-01-22 10:49 | Outpatient (REF) | payer MEDICARE, MEDICAID, SELFPAY ==
--- NOTE | 2024-01-22 10:52 | CA_ITS ---
Transthoracic Echocardiogram Patient (Last, First, Middle): Silvestre Stallings D Gender: Male Date of : 1965 Age: 59 Procedure Date: 01/22/2024 Procedure Type: Transthoracic Echocardiogram Location: OP Height: 190.5 cm Weight: 108.86 kg BSA: 2.37 m2 Heart Rate: bpm BP: 124 / 66 mmHg Online Community Manager: Referring MD: Clemente Ferrari MD Symptoms: I48.0 - Paroxysmal atrial fibrillation Study Quality: Good ECG Rhythm: Sinus Conclusions: - The left ventricular systolic function is normal. The visually estimated ejection fraction is between 55-60%. - There is mild calcification of the aortic valve. - There is mild mitral annular calcification. - No obvious valvular pathology seen on this study. Findings Left Ventricle Normal left ventricular cavity size. There is moderately increased left ventricular wall thickness. The left ventricular systolic function is normal. The visually estimated ejection fraction is between 55-60%. There is no evidence of regional wall motion abnormalities. Evidence suggests grade I (mild) diastolic dysfunction. Right Ventricle Normal right ventricular cavity size and systolic function. Atria The left atrium is mildly dilated. The right atrium is normal in size. Aortic Valve There is a normal trileaflet aortic valve. There is mild calcification of the aortic valve. There is no aortic valve stenosis. There is no aortic valve regurgitation. Mitral Valve There is mild mitral annular calcification. There is no mitral valve regurgitation. There is no mitral valve stenosis. Pulmonic Valve The pulmonic valve is likely normal. Tricuspid Valve There is trace tricuspid valve regurgitation. There is no evidence of pulmonary hypertension. Great Vessels The asc aorta is normal in size. Venous The inferior vena cava is normal in size and collapses less than 50% with inspiration. Pericardium/Pleural There is a trivial pericardial effusion. Prior Study Comparison No prior study available for comparison. Recommendations, Care & Conclusions No obvious valvular pathology seen on this study. Measurements 2D Linear Measurements IVSd: 1.35 0.6-0.9/0.6-1.0 cm LVIDd: 4.76 3.9-5.3/4.2-5.9 cm LVIDd Index: 2.01 2.4-3.2/2.2-3.1 cm/m2 LVIDs: 2.97 2.0-3.6 cm LVPWd: 1.32 0.7-1.1 cm Ao Root: 3.50 2.1-3.5 cm LA Diam: 4.30 2.7-3.8/3.0-4.0 cm LAIDs Index: 1.81 1.5-2.3 cm/m2 LV Mass: 314.42 67-162/88-224 g LV Mass Index: 132.66 43-95/49-115 g/m2 LVOT Diam: 2.50 3.0+(-)1.3 cm 2D Systolic Function EF 4C: 54.70 >55% EF 2C: 55.00 >55% EF BiP: 53.60 >55% Mitral Valve MV Pk E: 0.55 MV PK A: 0.97 MV Decel Time: 114.00 E/A: 0.60 E'Lateral: 4.57 E'Medial: 5.87 E/E' Med: 9.40 E/E' Lat: 12.10 PHT: 33.00 MVA PHT: 6.67 Decel Larue: 4.83 Aortic Valve AoV Pk Gabriel: 1.40 AoV Pk Grad: 8.00 LVOT LVOT Pk Gabriel: 0.78 LVOT Mn Gabriel: 0.53 LVOT VTI: 0.19 LVOT Pk Grad: 2.00 LVOT Mn Grad: 1.00 LVOT Diam: 2.50 LVOT Area: 4.91 Diastolic Function MV Pk E: 0.55 MV Pk A: 0.97 E/A: 0.60 E'Medial: 5.87 E/E' Med: 9.40 E' Laterial: 4.57 E/E' Lat: 12.10 Right Ventricle TAPSE (mm): 29.00 TVS' Gabriel: 13.00 Tricuspid Valve TR Pk Gabriel: 1.79 TR Pk Grad: 13.00 RA Press: 3.00 RVSP: 16.00 Great Vessels Aorta Ao Root-2D: 3.50 2.0-3.7 cm Ao Asc: 3.70 2.1-3.4 cm Pulmonary Valve PV Pk Gabriel: 1.09 Peak PV Grad: 5.00 Updated in Other Vendor System with Status of Final Moncho Carnes MD electronically signed on 01/25/2024 2:12:20 PM with status of Final
== END ==
LOC: HO.CARD 10:49
PROVIDERS: PCP Internal Medicine; Visit Provider Internal Medicine Cardiovascular Disease
DX: I48.0 Paroxysmal atrial fibrillation (principal)
CPT/HCPCS: 93306

== ENCOUNTER → 2024-01-22 10:52 | Outpatient (BNV) | payer MEDICARE, MEDICAID, SELFPAY | PROVIDERS: PCP Internal Medicine; Visit Provider Internal Medicine | DX: I35.8 Other nonrheumatic aortic valve disorders (principal); I34.81 Nonrheumatic mitral (valve) annulus calcification; I51.89 Other ill-defined heart diseases | CPT/HCPCS: 93306 ==

== ENCOUNTER 2024-03-24 12:48 | Outpatient (AMB) | payer MEDICARE, MEDICAID, SELFPAY ==
--- OUTSIDE RECORDS SUMMARY | 2024-03-24 12:50 | XMS_ITS ---
Author Organization [facility] Address [address] [place] [address] Care Team Providers Care Signal Supervisor Name Role Phone Carlos Carlton MDneth Primary Care Provider Unava Stephon Zurita Jr Unavailable REASON FOR VISIT erosive esophagitis Encounters Encounter Location Date Provider Diagnosis [facility] [address] [place] [id number] 11/29/2023 Stephon Cristina Jr PLAN OF TREATMENT Next Appt Details Provider Name:Stephon aleman Jr, 04/16/2024 03:15:00 PM, [address], [address], [place], [address],
--- OUTSIDE RECORDS SUMMARY | 2024-03-24 12:50 | XMS_ITS | Patient Health Record ---
Author Organization [facility] Address [address] [place] [address] Care Team Providers Care City Library Director Name Role Phone Brandt MACHADO, Félix Primary Care Provider Stephon Montano Jr RESULTS Component Value Reference Range Notes Pathology Reviewed date:09/02/2023 08:46:13 AM Interpretation: Performing Lab:[facility], [address] [place] [phone] Notes/Report: REASON FOR REFERRAL No Information SOCIAL HISTORY Sex Assigned At : Social History Observation Description Sex Assigned At Unknown PROBLEMS Problem Type ICD Code Onset Dates Problem Status W/U Status Risk SNOMED Code Notes Problem Erosive esophagitis (K22.10) Active confirmed 36236722 Problem Dysphagia (R13.10) Active confirmed Dysphagia (00696742) Encounters Encounter Location Date Provider Diagnosis [facility] Inpatient [address] [place] [id number] 08/27/2023 Stephon Cristina Jr [facility] Outpatient [address] [place] [id number] 11/29/2023 Stephon Cristina Jr [facility] [address] [place] [phone] 09/02/2023 Stephon Cristina Jr Erosive esophagitis K22.10 [facility] [address] [place] [phone] 09/02/2023 Stephon Cristina Jr [facility] [address] [place] [phone] 10/16/2023 Stephon Cristina Jr [facility] [address] [place] [phone] 10/30/2023 Stephon Cristina Jr ASSESSMENTS Encounter Date Diagnosis Assessment Notes Treatment Notes Treatment Clinical Notes 09/02/2023 Erosive esophagitis (ICD-10 - K22.10) PLAN OF TREATMENT Future Test Test Name Order Date UPPER GI ENDOSCOPY 09/02/2023 Next Appt Details Provider Name:Stephon Riana aleman Jr, 04/16/2024 03:15:00 PM, [address] [place] [address], [address], [place], [address], Insurance Providers Payer Name Payer Address Payer Phone Subscriber Number Group Number Insured Name Patient Relationship to Insured Coverage Start Date Coverage End Date MEDICARE OF [place] [address] [place] [id number] NOELLE MCKEE Self - patient is the insured [place] [address] [place] [phone] [id number] NOELLE MCKEE Self - patient is the insured
--- OUTSIDE RECORDS SUMMARY | 2024-03-24 12:50 | XMS_ITS ---
Author Organization [facility] Address [address] [place] [address] Care Team Providers Care Grade Recorder Name Role Phone Brandt MACHADO, [place] Primary Care Provider Stephon Montano Jr [phone] REASON FOR VISIT cancel procedure/FYI Encounters Encounter Location Date Provider Diagnosis [facility] [address] [place] [address] 10/30/2023 Stephon Cristina Jr PLAN OF TREATMENT Next Appt Details Provider Name:Stephon aleman Jr, 04/16/2024 03:15:00 PM, [address], [address], [place], [address],
--- OUTSIDE RECORDS SUMMARY | 2024-03-24 12:50 | XMS_ITS ---
Author Organization [facility] Address [address] [place] [address] Care Team Providers Care Shooting Gallery Operator Name Role Phone Brandt MACHADO [place] Primary Care Provider Ion Cristina Jr, Stephon Unavailable REASON FOR VISIT new insurance Encounters Encounter Location Date Provider Diagnosis [facility] [address] [place] [address] 10/16/2023 Stephon Cristina Jr PLAN OF TREATMENT Next Appt Details Provider Name:Stephon aleman Jr, 04/16/2024 03:15:00 PM, [address], [address], [place], [address],
--- NOTE | 2024-03-24 13:06 | A.OFFVIS_ITS ---
Intake Visit Reasons: Unspecified urinary incontinence Intake Note: New Patient presents for initial visit for urinary retention Urology Medications: none Blood Thinner: Apixaban PVR: 512ml's Waste/Materials Exchange Specialist Required: No Accompanied by: Unknown Allergies No Known Allergies [No Known Allergies*] Allergy (Verified 03/25/24 14:26) Medication List - Last Reconciled 03/25/24 by MAT Hampton apixaban (Eliquis) 5 mg PO BID 30 days blood pressure test kit-large As directed blood sugar diagnostic (FreeStyle Lite Strips) As directed 3 times a day blood-glucose meter,continuous (FreeStyle Dedra 3 [place]) As directed blood-glucose sensor (FreeStyle Dedra 3 Sensor device) As directed flash glucose sensor (FreeStyle Dedra 14 Day Sensor kit) As directed gabapentin 100 mg PO BID PRN hydralazine 25 mg PO BID magnesium oxide 800 mg (2 x 400 mg (241.3 mg magnesium)) PO BIDPC metformin 1,000 mg PO BID metoprolol succinate ER 75 mg (3 x 25 mg) PO DAILY 30 days omeprazole 20 mg PO BID tamsulosin 0.4 mg PO BEDTIME 30 days HPI Comments Details: Silvestre is a pleasant 59-year-old male patient of Dr. Carlton who was accompanied by his ex- in mom at today's office visit. Has a past medical history of chronic kidney disease stage 3, obesity, hypertension, diabetes, paroxysmal AFib, and stroke. He presents to the office today as a new patient for ongoing urinary incontinence. In discussion with the patient and his family today he reports since his stroke 7 months ago he has been noting issues with urinary incontinence. Unable to obtain urine for urinalysis today. PVR 512 mL. We discussed at length urinary retention/incomplete bladder emptying. He otherwise denies hematuria, dysuria, foul smelling urine, changes to urinary stream, flank pain, fever, and or chills. We discussed obtaining retroperitoneal ultrasound for further assessment evaluation. We discussed further treatment options of urinary retention/incomplete bladder emptying. We discussed obtaining sample via CIC today however patient and family declined. He does not wish to perform CIC and or have indwelling Nascimento catheter at this time despite discussion regarding affects of incomplete bladder emptying/urinary retention. We discussed potential for neurogenic bladder in the setting of recent stroke. He reports prior to the stroke he has had no bothersome urinary issues or concerns. He otherwise offers no other issues or concerns at this time. In review of patient's chart it appears PSAs: 06/13 1.2 PFS Medical History Chronic kidney disease (CKD), stage III (moderate) Overweight (BMI 25.0-29.9) Obesity (BMI 30-39.9) Benign essential hypertension Diabetes mellitus Type II diabetes mellitus Uncontrolled diabetes mellitus Paroxysmal atrial fibrillation Diabetic foot infection COVID-19 Surgical History No pertinent past surgical history Family History Mother No problems noted. Father No problems noted. Social History Household Members: None Housing: Apartment Do you presently have visiting nurse or other home services: No Unable to assess alcohol history related to: Refusing to respond Alcohol intake: former Patient Tobacco Use Status: Former Tobacco user Tobacco use type: Cigarette Cigarette Packs Per Day: 0.5 Cigarettes Per Day: 10.0 e-Cigarette/Vaping Use: Never Used Second Hand Smoke Exposure: No service: No Current occupational status: unemployed Cognitive needs: No Hearing needs: No Vision needs: No Review of Systems Const Reports as per HPI Eyes Reports no additional complaints ENT Reports no additional complaints Card Reports as per HPI Resp Reports no additional complaints GI Reports no additional complaints Reports as per HPI Musc Reports as per HPI Neuro Reports as per HPI Psych Reports no additional complaints Endo Reports as per HPI Paolo/Lymph Reports no additional complaints Aller/Immun Reports no additional complaints Physical Exam Const General: cooperative, comfortable, no acute distress, well developed, alert and awake Nutritional Appearance: overweight Orientation/consciousness: oriented to person HEENT Head: Yes normal to inspection, Yes normocephalic and Yes atraumatic Ears: hearing grossly normal bilaterally Eyes General: appearance normal, both eyes and all related structures Neck Neck: Yes normal visual inspection and Yes trachea midline Chest Chest palpation & inspection: normal inspection of the chest Resp Effort & Inspection: normal respiratory effort and able to speak in complete sentences Cardio Rate: regular rate GI Inspection: Yes normal to inspection General: Yes no CVA tenderness Back/Spine/Pelvis Back: no CVA tenderness Skin General skin exam: no rashes or lesions noted Neuro General: oriented to person Extrem General: Yes normal to inspection Psych Appearance: grossly normal and well kempt Speech and movement: Slowed movement present (Neuro) Affect: normal affect Attitude: cooperative Thought content: Normal thought content present Insight: Fair insight present (Psych) and Limited insight present (Psych) Judgement: Fair judgement present (Psych) and Limited judgement present (Psych) Assessment & Plan Assessment & Plan (1) Urine incontinence: Code(s): R32 - Unspecified urinary incontinence Category: Medical (2) Incomplete bladder emptying: Code(s): R33.9 - Retention of urine, unspecified Category: Medical (3) Urinary retention: Code(s): R33.9 - Retention of urine, unspecified Category: Medical Plan Unable to obtain urine for urinalysis as patient unable to void. PVR 512 mL. We discussed at length causes and affects of incomplete bladder emptying/urinary retention. We discussed further treatment options and risks and benefits of these treatment options. Start Flomax as discussed and prescribed. Will obtain retroperitoneal ultrasound for further assessment evaluation. Will obtain PSA for further assessment evaluation. NELL offered however deferred. We discussed potential near future in office cystoscopy and or urodynamics for further assessment evaluation. Follow-up in 1-2 months with imaging and PVR; or sooner with any issues, concerns, and or questions. Orders: Orders AMB Post Void Residual by ultrasound 03/24/24 R32 - Unspecified urinary incontinence Prostate Specific Antigen 03/24/24 R32 - Unspecified urinary incontinence, R33.9 - Retention of urine, unspecified US retroperitoneal comp 03/24/24 R32 - Unspecified urinary incontinence, R33.9 - Retention of urine, unspecified AMB Urinalysis Automated 03/24/24 Z13.9 - Encounter for screening, unspecified UA CC w/rflx Micro + Cult 03/24/24 R82.90 - Unspecified abnormal findings in urine Medications: New tamsulosin 0.4 mg PO BEDTIME 30 days 30 caps 3RF N40.1 - Benign prostatic hyperplasia with lower urinary tract symptoms, R35.1 - Nocturia Patient Instructions: The patient had an opportunity to ask questions regarding the treatment plan. All questions were answered. Physical exam, labs, and imaging were discussed and reviewed in detail. As well as risks, benefits, and discussion of treatment choices. No major barriers to understanding were identified. The patient expressed understanding and agreement with the above treatment plan. The patient was made aware they should contact our office by phone for worsening of their current condition, the appearance of new symptoms, or with any questions or concerns. Compliance is encouraged with any medications and follow up testing that is ordered. It is a privilege to be allowed the opportunity to participate in? your urological care.? Again, if you have any questions or concerns If you have any questions or concerns please do not hesitate to contact me. The office is [phone]. This note is constructed using voice recognition software. While every effort has been made to ensure accuracy corporation pilot errors may have been included. Yours sincerely, MAT Hampton Coding Level of Care Code New Pt Level 4 (35500) Diagnoses Urine incontinence R32 Incomplete bladder emptying R33.9 Urinary retention R33.9
== END 2024-03-24 13:42 | disposition home or self-care (01) ==
PROVIDERS: PCP Internal Medicine; Visit Provider Nurse Practitioner Family
DX: R32 Unspecified urinary incontinence (principal); R33.9 Retention of urine, unspecified
CPT/HCPCS: 99204

== ENCOUNTER → 2024-03-24 12:48 | Outpatient (BNVA) | payer MEDICARE, MEDICAID, SELFPAY | PROVIDERS: PCP Internal Medicine; Visit Provider Nurse Practitioner Family | DX: R32 Unspecified urinary incontinence (principal); R33.9 Retention of urine, unspecified | CPT/HCPCS: 99202 ==

== ENCOUNTER 2024-03-26 12:03 | Outpatient (REF) | payer MEDICARE, MEDICAID, SELFPAY ==
--- OUTSIDE RECORDS SUMMARY | 2024-03-26 13:13 | XMS_ITS ---
Author Organization [facility] Address [address] [place] [address] Care Team Providers Care Line Out Worker Name Role Phone Brandt MACHADO [place] Primary Care Provider Ion Cristina Jr, Stephon Unavailable [phone] REASON FOR VISIT new insurance Encounters Encounter Location Date Provider Diagnosis [facility] [address] [place] [address] 10/16/2023 Stephon Cristina Jr PLAN OF TREATMENT Next Appt Details Provider Name:Stephon aleman Jr, 04/16/2024 03:15:00 PM, [address], [address], [place], [address],
--- OUTSIDE RECORDS SUMMARY | 2024-03-26 13:13 | XMS_ITS ---
Author Organization [facility] Address [address] [place] [address] Care Team Providers Care Transplant Case Manager Name Role Phone Carlos Carlton MDneth Primary Care Provider Unava Stephon Zurita Jr Unavailable REASON FOR VISIT erosive esophagitis Encounters Encounter Location Date Provider Diagnosis [facility] Outpatient [address] [place] [id number] 11/29/2023 Stephon Cristina Jr PLAN OF TREATMENT Next Appt Details Provider Name:Stephon aleman Jr, 04/16/2024 03:15:00 PM, [address] [facility], [address], [place], [address],
--- OUTSIDE RECORDS SUMMARY | 2024-03-26 13:13 | XMS_ITS ---
Author Organization [facility] Address [address] [place] [address] Care Team Providers Care Operations Manager Assistant Name Role Phone Brandt MACHADO [place] Primary Care Provider Stephon Montano Jr REASON FOR VISIT cancel procedure/FYI Encounters Encounter Location Date Provider Diagnosis [facility] [address] [place] [address] 10/30/2023 Stephon Cristina Jr PLAN OF TREATMENT Next Appt Details Provider Name:Stephon aleman Jr, 04/16/2024 03:15:00 PM, [address], [address], [place], [address],
--- OUTSIDE RECORDS SUMMARY | 2024-03-26 13:14 | XMS_ITS | Patient Health Record ---
Author Organization [facility] Address [address] [place] [address] Care Team Providers Care Ceo & Co Founder Name Role Phone Brandt MACHADO, Félix Primary Care Provider Stephon Montano Jr RESULTS Component Value Reference Range Notes Pathology Reviewed date:09/02/2023 08:46:13 AM Interpretation: Performing Lab:[facility], [address] [place] [phone] Notes/Report: REASON FOR REFERRAL No Information SOCIAL HISTORY Sex Assigned At : Social History Observation Description Sex Assigned At Unknown PROBLEMS Problem Type ICD Code Onset Dates Problem Status W/U Status Risk SNOMED Code Notes Problem Erosive esophagitis (K22.10) Active confirmed 20054942 Problem Dysphagia (R13.10) Active confirmed Dysphagia (24083611) Encounters Encounter Location Date Provider Diagnosis [facility] Inpatient [address] [place] [id number] 08/27/2023 Stephon Cristina Jr [facility] Outpatient [address] [place] [id number] 11/29/2023 Stephon Cristina Jr [facility] [address] [place] [phone] 09/02/2023 Stephon Cristina Jr Erosive esophagitis K22.10 [facility] [address] [place] [phone] 09/02/2023 Stephon Cristina Jr [facility] [address] [place] [phone] 10/16/2023 Stephon Cristina Jr [facility] [address] [place] [phone] 10/30/2023 Stephon Cristina Jr ASSESSMENTS Encounter Date Diagnosis Assessment Notes Treatment Notes Treatment Clinical Notes 09/02/2023 Erosive esophagitis (ICD-10 - K22.10) PLAN OF TREATMENT Future Test Test Name Order Date UPPER GI ENDOSCOPY 09/02/2023 Next Appt Details Provider Name:Stephon Riana aleman Jr, 04/16/2024 03:15:00 PM, [address] [place] [address], [address], [place], [address], Insurance Providers Payer Name Payer Address Payer Phone Subscriber Number Group Number Insured Name Patient Relationship to Insured Coverage Start Date Coverage End Date MED[place]ARE OF [place] [address] [place] [id number] NOELLE MCKEE Self - patient is the insured [place] [address] [place] [address] [id number] NOELLE MCKEE Self - patient is the insured
== END 2024-03-26 12:04 | disposition home or self-care (01) ==
LOC: HO.LAB 12:03
PROVIDERS: PCP Internal Medicine; Visit Provider Nurse Practitioner Family
DX: R32 Unspecified urinary incontinence (principal)
CPT/HCPCS: 36415; 84153

== ENCOUNTER 2024-03-26 18:10 | Outpatient (REF) | payer MEDICARE, MEDICAID, SELFPAY ==
[2024-03-27 11:13] LABS: Appearance Urine Clear; Color Urine Yellow; Glucose Urine UA 250 mg/dL (Negative); Leukocyte Esterase Urine Negative (Negative); Nitrite Urine Negative (Negative); PH 6.5 (5.0-9.0); Urine Blood Trace (Negative); Urine Ketones Negative (Negative); Urine Protein >=1000 (4+) mg/dL (Neg-Trace)
[2024-03-27 11:14] LABS: UMIC TRIGGER UACC YES
[2024-03-27 11:17] LABS: Bacteria Urine None Seen (None Seen); Squamous Epithelial Cell Urine 0-2 /HPF (0-2); WBC Urine 0-5 /HPF (0-5)
--- OUTSIDE RECORDS SUMMARY | 2024-03-27 12:30 | XMS_ITS ---
Author Organization [facility] Address [address] [place] [address] Care Team Providers Care Breakfast Supervisor Name Role Phone Brandt MACHADO [place] Primary Care Provider Ion Cristina Jr, Stephon Unavailable REASON FOR VISIT new insurance Encounters Encounter Location Date Provider Diagnosis [facility] [address] [place] [address] 10/16/2023 Stephon Cristina Jr PLAN OF TREATMENT Next Appt Details Provider Name:Stephon aleman Jr, 04/16/2024 03:15:00 PM, [address], [address], [place], [address],
--- OUTSIDE RECORDS SUMMARY | 2024-03-27 12:30 | XMS_ITS | Patient Health Record ---
Author Organization [facility] Address [address] [address] Care Team Providers Care Dress Draper Name Role Phone Brandt MACHADO, Félix Primary Care Provider Stephon Montano Jr RESULTS Component Value Reference Range Notes Pathology Reviewed date:09/02/2023 08:46:13 AM Interpretation: Performing Lab:[facility], [address] [place] [phone] Notes/Report: REASON FOR REFERRAL No Information SOCIAL HISTORY Sex Assigned At : Social History Observation Description Sex Assigned At Unknown PROBLEMS Problem Type ICD Code Onset Dates Problem Status W/U Status Risk SNOMED Code Notes Problem Erosive esophagitis (K22.10) Active confirmed 61265590 Problem Dysphagia (R13.10) Active confirmed Dysphagia (58005361) Encounters Encounter Location Date Provider Diagnosis [facility] Inpatient [address] [place] [id number] 08/27/2023 Stephon Cristina Jr [facility] Outpatient [address] [place] [id number] 11/29/2023 Stephon Cristina Jr [facility] [address] [address] 09/02/2023 Stephon Cristina Jr Erosive esophagitis K22.10 [facility] [address] [phone] 09/02/2023 Stephon Cristina Jr [facility] [address] [place] [address] 10/16/2023 Stephon Cristina Jr [facility] [address] [place] [phone] 10/30/2023 Stephon Cristina Jr ASSESSMENTS Encounter Date Diagnosis Assessment Notes Treatment Notes Treatment Clinical Notes 09/02/2023 Erosive esophagitis (ICD-10 - K22.10) PLAN OF TREATMENT Future Test Test Name Order Date UPPER GI ENDOSCOPY 09/02/2023 Next Appt Details Provider Name:Stephon Riana aleman Jr, 04/16/2024 03:15:00 PM, [address] [place] [address], [address], [place], [address], Insurance Providers Payer Name Payer Address Payer Phone Subscriber Number Group Number Insured Name Patient Relationship to Insured Coverage Start Date Coverage End Date MED[place]ARE OF [place] [address] [place] [address] [id number] NOELLE MCKEE Self - patient is the insured [place] [address] [place] [phone] [id number] NOELLE MCKEE Self - patient is the insured
--- OUTSIDE RECORDS SUMMARY | 2024-03-27 12:30 | XMS_ITS ---
Author Organization [facility] Address [address] [place] [address] Care Team Providers Care Meat Selector Name Role Phone Brandt MACHADO [place] Primary Care Provider Stephon Montano Jr REASON FOR VISIT cancel procedure/FYI Encounters Encounter Location Date Provider Diagnosis [facility] [address] [place] [address] 10/30/2023 Stephon Cristina Jr PLAN OF TREATMENT Next Appt Details Provider Name:Stephon aleman Jr, 04/16/2024 03:15:00 PM, [address], [address], [place], [address],
== END 2024-03-26 18:11 | disposition home or self-care (01) ==
LOC: HO.LNP 18:10
PROVIDERS: Visit Provider Nurse Practitioner Family
DX: R32 Unspecified urinary incontinence (principal); Z12.5 Encounter for screening for malignant neoplasm of prostate
CPT/HCPCS: 36415; 81001; 81003; 84153

== ENCOUNTER 2024-04-16 09:47 | Outpatient (REF) | payer MEDICARE, MEDICAID, SELFPAY ==
--- NOTE | ~2024-04-16 | US_ITS ---
CLINICAL HISTORY: R32 - Unspecified urinary incontinence US Renal Comparison: None Findings: Right kidney normal size and echotexture, 13.3 cm length. Left kidney normal size and echotexture, 12.2 cm length. No hydronephrosis of either kidney. Normal color Doppler. Urinary bladder is unremarkable. Prevoid volume 568 mL. Bilateral ureteral jets are visualized. The prostate measures 4.3 x 2.5 x 1.9 cm. IMPRESSION: 1. Normal kidneys. This document has been electronically signed by: Moreno Spear MD on 04/17/2024 08:24:43
== END 2024-04-16 09:48 | disposition home or self-care (01) ==
LOC: HO.US 09:47
PROVIDERS: PCP Internal Medicine; Visit Provider Nurse Practitioner Family
DX: R32 Unspecified urinary incontinence (principal); R33.9 Retention of urine, unspecified
CPT/HCPCS: 76770

== ENCOUNTER → 2024-04-16 09:51 | Outpatient (BNV) | payer MEDICARE, MEDICAID, SELFPAY | PROVIDERS: PCP Internal Medicine; Visit Provider Specialist | DX: R32 Unspecified urinary incontinence (principal) | CPT/HCPCS: 76770 ==

== ENCOUNTER 2024-05-04 01:02 | Inpatient (IN) | payer MEDICARE, MEDICAID, SELFPAY ==
[2024-05-04] VITALS (14 sets, daily range): BP systolic 97–148; BP diastolic 56–79; PULSE 80–98; RESP 14–21; TEMP 36.2–36.7; O2SAT 94–98; BMI 31.3; BMI 31.2
--- NOTE | ~2024-05-04 | XR_ITS ---
CLINICAL HISTORY: Altered mental status rule out pneumonia 1 view chest x-ray Comparison: Chest x-ray from 08/25/2023 Findings: Low lung volumes with mild bibasilar atelectasis and/or pneumonitis, right worse than left. No pneumothorax or pleural effusion. Degenerative changes include the imaged shoulders and left AC joint. IMPRESSION: Mild bibasilar atelectasis/pneumonitis, right worse than left. This document has been electronically signed by: Vijay Epps MD on 05/04/2024 02:49:47
--- NOTE | ~2024-05-04 | CT_ITS ---
CLINICAL HISTORY: Expressive aphasia CT head without contrast Comparison: Head CT from 09/09/2023. Findings: Multiple bilateral scattered infarctions appear old and progressed relative to comparison; including basal ganglia regions and bifrontal small infarctions, with now small focus of cystic encephalomalacia of the lateral margin of the frontal horn of the left lateral ventricle (image 34 of series 2). Aspects 4. No midline shift or hydrocephalus. No acute intracranial hemorrhage. Mild volume loss is generalized. Vascular calcifications are redemonstrated. Mucosal thickening of the paranasal sinuses. Imaged mastoid air cells are well aerated. Metal and lucencies associated with the partially imaged teeth. No acute skull fracture. IMPRESSION: 1. No acute intracranial hemorrhage. 2. Multiple bilateral infarctions including both frontal lobes in both basal ganglia regions. This document has been electronically signed by: Vijay Epps MD on 05/04/2024 01:28:17
--- NOTE | ~2024-05-04 | CT_ITS ---
CLINICAL HISTORY: Expressive aphasia CT angiography of the head and neck with contrast. With MIP MPR Postprocessing. Comparison: Head CT from same day. Findings: Head: No ICA or M1 occlusion. Vascular calcifications including carotid siphons with mild stenosis. Anterior communicating artery is patent. Proximal ACAs and proximal MCAs are otherwise unremarkable. The basilar artery is patent. Proximal production recovery operator are unremarkable for positioning and venous contamination. No proximal intracranial arterial aneurysm. Mild flattening of the nasal bones appears old/chronic. Metal and lucencies associated with multiple imaged remaining teeth. Lucencies of the mixed and upper alveolar ridge appear old and likely accentuated by absence of the teeth. Neck: Calcified and noncalcified plaque including bilateral carotid bulbs and bilateral carotid bifurcations. No significant stenosis of either internal carotid artery by NASCET criteria. Vertebral arteries are essentially equal caliber. Mild-moderate stenosis of the origin of the right vertebral and mild stenosis of the origin of the left vertebral with calcifications. Additional calcified and noncalcified plaque involving the imaged aorta and its branches. With mild stenosis of the proximal left subclavian artery. Three-vessel aortic arch anatomy is noted. Mild subcutaneous edema. Mild scarring of the imaged lung apices. Degenerative changes include disc osteophyte complexes and facet arthropathy of the imaged cervical spine. IMPRESSION: Head: 1. No ICA or M1 occlusion. 2. The basilar artery is patent. Neck: 1. No significant stenosis of either internal carotid artery by NASCET criteria. 2. The vertebral arteries are codominant. 3. Multifocal atherosclerosis. This document has been electronically signed by: Vijay Epps MD on 05/04/2024 02:33:01
--- NOTE | 2024-05-04 01:10 | ED.NEUROSD ---
HPI - Neuro Symptoms/Deficit General Chief Complaint: Stroke Stated Complaint: Stroke Alert, [id number], AMS Time Seen by Provider: 05/04/24 01:08 Source: family and EMS Mode of arrival: EMS Limitations: other (Expressive and receptive aphasia on presentation) History of Present Illness ED Provider: Dr. Sundeep Peter HPI Narrative: 59-year-old male with a history of chronic kidney disease, hypertension, diabetes, paroxysmal atrial fibrillation on Eliquis, recent stroke 09/12/2023 with residual right lower extremity weakness who presents emergency department for evaluation change in mental status and incomprehensible speech. Information came from EMS and the patient's mother who is here in the emergency department. According to his mother, the patient has a colonoscopy and endoscopy scheduled in 10 days. He he was also recently diagnosed with urinary retention. The patient was on Eliquis and this was discontinued for his upcoming procedure and he was started on Lovenox with his 1st dose given today at 22:15. Patient was also started on terazosin for his urinary retention and his 1st dose was given today a 22:15 as well. His mother states that shortly after receiving these 2 medicines he became disoriented. He was not able to answer questions. He was not able to follow commands. She was concerned that he was having another stroke and called 911. Paramedics report that the patient appeared to be confused and directions. Stock Puller vital signs revealed a blood pressure of 97/59. His point of care glucose was 160. Patient was made a stroke alert and I did evaluate the patient on arrival. Patient had both an expressive and receptive aphasia. He was able to hold his upper extremities up against gravity but did quickly drop his arms he was able to hold up his lower extremities but they appeared to be weaker than his upper extremities. Patient was brought directly to the CT scan for CT scan of the head and CT angiogram of the head and neck. Related Data Home Medications ?Medication ?Instructions ?Recorded ?Confirmed gabapentin 100 mg capsule 100 mg PO BID PRN neuropathic pain 08/25/23 01/05/24 Previous Rx's ?Medication ?Instructions ?Recorded blood sugar diagnostic (FreeStyle #100 ea 07/16/22 Lite Strips) flash glucose sensor (FreeStyle #1 ea 07/17/23 Dedra 14 Day Sensor kit) blood-glucose meter,continuous #1 ea 11/29/23 (FreeStyle Dedra 3 [place]) blood-glucose sensor (FreeStyle #1 ea 11/29/23 Dedra 3 Sensor device) blood pressure test kit-large #1 ea 12/25/23 hydralazine 25 mg tablet 25 mg PO BID #180 tabs 12/25/23 magnesium oxide 400 mg (241.3 mg 800 mg (2 x 400 mg (241.3 mg 03/10/24 magnesium) tablet magnesium)) PO BIDPC #120 tabs apixaban 5 mg tablet (Eliquis) 5 mg PO BID 30 days #60 tabs 03/26/24 metoprolol succinate 25 mg 75 mg (3 x 25 mg) PO DAILY 30 days 03/26/24 tablet,extended release 24 hr #90 tabs tamsulosin 0.4 mg capsule 0.4 mg PO BEDTIME 30 days #30 caps 03/27/24 omeprazole 20 mg capsule,delayed 20 mg PO BID #90 caps 04/13/24 release enoxaparin 100 mg/mL subcutaneous 100 mg subcut Q12H 10 days #20 mL 04/22/24 syringe (Lovenox) metformin 1,000 mg tablet 1,000 mg PO BID #60 tabs 04/28/24 terazosin 5 mg capsule 5 mg PO BEDTIME 30 days #30 caps 04/29/24 Allergies Allergy/AdvReac Type Severity Reaction Status Date / Time No Known Allergies Allergy Verified 05/04/24 02:04 [No Known Allergies*] Review of Systems Review of Systems: Yes Unobtainable due to mental condition [facility] Past Medical History [facility] Narrative: Social history: He lives with his mother. Medical History Chronic kidney disease (CKD), stage III (moderate) Overweight (BMI 25.0-29.9) Obesity (BMI 30-39.9) Benign essential hypertension Diabetes mellitus Type II diabetes mellitus Uncontrolled diabetes mellitus Paroxysmal atrial fibrillation Diabetic foot infection COVID-19 Surgical History No pertinent past surgical history Family History Family History Mother No problems noted. Father No problems noted. Social History Social History Household Members: None Housing: Apartment Do you presently have visiting nurse or other home services: No Unable to assess alcohol history related to: Refusing to respond Alcohol intake: former Patient Tobacco Use Status: Former Tobacco user Tobacco use type: Cigarette Cigarette Packs Per Day: 0.5 Cigarettes Per Day: 10.0 e-Cigarette/Vaping Use: Never Used Second Hand Smoke Exposure: No Advance Directives: Yes Advance Directives on File: Yes Advance Directives Date on File: 09/17/23 service: No Current occupational status: unemployed Cognitive needs: No Hearing needs: No Vision needs: No Physical Exam Vital Signs: Vital Signs: Last Vital Signs Temp 97.8 F 05/04/24 01:58 Pulse 91 05/04/24 01:58 Resp 19 05/04/24 01:58 BP 148/79 H 05/04/24 01:58 Pulse Ox 95 05/04/24 01:58 O2 Del Method Room Air 05/04/24 01:58 BMI result Body Mass Index 31.3 Vital signs revealed an elevated blood pressure of 148/79 otherwise unremarkable Exam: General: Awake, aggressive and receptive aphasia Head: Normocephalic, atraumatic EENT: PERRL, Lids normal, sclera normal, conjunctiva normal, nose normal , ears normal, throat without erythema or exudates Neck: Supple, no adenopathy Lung: breath sounds symmetric, no wheezing, rales or rhonchi Chest: symmetric movement, nontender Heart: regular rate and rhythm, normal S1, S2 no murmurs or rubs Abdomen: soft, non-tender, nondistended, normal bowel sounds Extremities: no deformities, no edema, patient can hold his extremities up against gravity but his lower extremities appear to be weaker than his upper extremities Neuro: Awake, not able to answer questions, not able to follow commands Medications Administered Discontinued Medications Generic Name Dose Route Start Last Admin Trade Name Freq PRN Reason Stop Dose Admin Iohexol 70 ml 05/04/24 01:49 05/04/24 01:50 Iohexol 350 Mg/Ml 100 Ml Infus..Btl IV 05/04/24 01:50 70 ml ONCE ONE Administration Medical Decision Making Medical Decision Making MDM Narrative: 59-year-old male with a history of chronic kidney disease, hypertension, diabetes, paroxysmal atrial fibrillation on Eliquis, recent stroke 09/12/2023 with residual right lower extremity weakness who presents emergency department for evaluation change in mental status and incomprehensible speech came on suddenly at 22:15 hours after he received his 1st dose of Lovenox and terazosin. On initial examination the patient had both an expressive and receptive aphasia, he was able to hold his arms up against gravity but only briefly and his lower extremities appear to be weaker than his upper extremities. Differential diagnosis: ?Includes but is not limited to stroke, intracranial bleed, TIA, electrolyte abnormalities, anemia Course: 02:59 My independent interpretation patient's laboratory evaluation is as follows: Normocytic anemia with an H&H of 12.4 and 37.5 INR was elevated 1.2. PTT elevated 46.9. Bicarb low 19. BUN creatinine elevated 27 and 2.01-this is chronic.. Glucose elevated 156. Lipid profile revealed elevated triglyceride, total cholesterol, LDL. Patient had a low HDL. Alcohol was below detectable limits. COVID-19, influenza and RSV were negative. CT scan of the brain revealed no acute bleed, the patient did have interval change compared to the previous CT scan with new lacunar infarcts. CT angiogram head and neck revealed no retrievable clot. Shortly after the patient returned from CT scan he had reversal of his expressive and receptive aphasia. He was able to answer questions and follow commands. This time I am concerned that the patient may have had a TIA versus a staggering stroke. The patient is on anticoagulants therefore he was not a thrombolytics candidate and I did discuss this with the patient's mother. The patient was presentation was discuss with the covering hospitalist, Dr. Alvarado and the patient will be admitted for further treatment and evaluation. Lab Data 05/04/24 01:55 05/04/24 01:55 Labs: Lab Results 05/04/24 05/04/24 05/04/24 Range/Units 01:10 01:23 01:55 WBC 7.9 (4.8-10.8) X10*3/uL RBC 4.41 L (4.60-5.80) X10*6/uL Hgb 12.4 L (14.0-18.0) g/dl Hct 37.5 L (42.0-52.0) % MCV 85.0 (80.0-98.0) fL MCH 28.1 (27.0-33.0) pg MCHC 33.1 (31.0-36.0) g/dl RDW 13.6 (11.0-16.0) % Plt Count 204 D (160-400) X10*3/uL MPV 9.7 (9.4-12.4) fL Immature Gran % (Auto) 0.3 (0.0-0.4) % Neut % (Auto) 79.1 H (45-73) % Lymph % (Auto) 12.8 L (20-40) % Rice % (Auto) 6.2 (2-11) % Eos % (Auto) 1.0 (0-4) % Baso % (Auto) 0.6 (0-2) % Lymph # (Auto) 1.0 L (1.2-4.9) X10*3/uL Rice # (Auto) 0.5 (0.1-1.2) X10*3/uL Eos # (Auto) 0.1 (0.0-0.4) X10*3/uL Baso # (Auto) 0.1 (0.0-0.2) X10*3/uL Abs Immat Gran (auto) 0.02 (0.00-0.03) X10*3/uL Absolute Neuts (auto) 6.2 (2.0-8.3) x10*3/uL Absolute Nucleated RBC 0.000 (0.0-0.012) X10*3/uL Nucleated RBC % (auto) 0.0 (0.0-0.2) /100WBC PT 14.4 H (10.9-12.4) SEC Whole Blood PT 13.6 H (11.1-13.5) sec INR 1.2 H (0.9-1.1) Whole Blood INR 1.1 (0.9-1.1) APTT 46.9 H (26.0-36.8) SEC Sodium 138 (135-145) mmol/L Potassium 3.6 (3.3-5.1) mmol/L Chloride 107 (96-108) mmol/L Carbon Dioxide 19 L (22-29) mmol/L Anion Gap 16 (12-20) BUN 27 H (9-16) mg/dL Creatinine 2.01 H (0.5-1.4) mg/dL Estim Creat Clear Calc 53.8 Estimated GFR 34 POC Glucose 133 H (60-115) mg/dL Random Glucose 156 H (60-115) mg/dL Calcium 8.4 D (8.4-10.2) mg/dL Total Bilirubin 0.2 (0.0-1.0) mg/dL Direct Bilirubin < 0.2 (0.0-0.5) mg/dL AST 19 (5-37) U/L ALT 6 (0-40) U/L Alkaline Phosphatase 54 (39-117) U/L Troponin I High Sens 5.8 (<3.5-35.0) ng/L Total Protein 6.3 L (6.5-8.0) g/dL Albumin 2.7 L (3.5-5.0) g/dL Triglycerides 260 H (<150) mg/dL Cholesterol 244 H (<200) mg/dL LDL Cholesterol, Calc 162 H (<100) mg/dL HDL Cholesterol 30 L (>40) mg/dL Ethyl Alcohol < 10 mg/dL Influenza Type A (PCR) NEGATIVE (Negative) Influenza Type B (PCR) NEGATIVE (Negative) RSV RNA Qual (PCR) NEGATIVE (Negative) SARS-CoV-2 RNA (RT-PCR) NEGATIVE (Negative) Independent Interpretation I performed an independent interpretation of an: EKG Interpretation: My independent interpretation patient's 12 EKG done at 02:01 hours is as follows: Normal sinus rhythm rate of 92, normal MD interval, QRS duration, prolonged QTC of 578 milliseconds, no ST segment elevation, no ST segment depression, Q-wave in lead 3, no significant T-wave abnormalities, no PACs, no PVCs Radiology Impression Discussion of test interpretation with radiology: I have reviewed the radiologist's reading. Radiologist Impression: CT head without contrast Comparison: Head CT from 09/09/2023. Findings: Multiple bilateral scattered infarctions appear old and progressed relative to comparison; including basal ganglia regions and bifrontal small infarctions, with now small focus of cystic encephalomalacia of the lateral margin of the frontal horn of the left lateral ventricle (image 34 of series 2). Aspects 4. No midline shift or hydrocephalus. No acute intracranial hemorrhage. Mild volume loss is generalized. Vascular calcifications are redemonstrated. Mucosal thickening of the paranasal sinuses. Imaged mastoid air cells are well aerated. Metal and lucencies associated with the partially imaged teeth. No acute skull fracture. IMPRESSION: 1. No acute intracranial hemorrhage. 2. Multiple bilateral infarctions including both frontal lobes in both basal ganglia regions. This document has been electronically signed by: Vijay Epps MD on 05/04/2024 01:28:17 Dictated By: Vijay Epps MD CT angiography of the head and neck with contrast. With MIP MPR Postprocessing. Comparison: Head CT from same day. Findings: Head: No ICA or M1 occlusion. Vascular calcifications including carotid siphons with mild stenosis. Anterior communicating artery is patent. Proximal ACAs and proximal MCAs are otherwise unremarkable. The basilar artery is patent. Proximal power generation engineer are unremarkable for positioning and venous contamination. No proximal intracranial arterial aneurysm. Mild flattening of the nasal bones appears old/chronic. Metal and lucencies associated with multiple imaged remaining teeth. Lucencies of the mixed and upper alveolar ridge appear old and likely accentuated by absence of the teeth. Neck: Calcified and noncalcified plaque including bilateral carotid bulbs and bilateral carotid bifurcations. No significant stenosis of either internal carotid artery by NASCET criteria. Vertebral arteries are essentially equal caliber. Mild-moderate stenosis of the origin of the right vertebral and mild stenosis of the origin of the left vertebral with calcifications. Additional calcified and noncalcified plaque involving the imaged aorta and its branches. With mild stenosis of the proximal left subclavian artery. Three-vessel aortic arch anatomy is noted. Mild subcutaneous edema. Mild scarring of the imaged lung apices. Degenerative changes include disc osteophyte complexes and facet arthropathy of the imaged cervical spine. IMPRESSION: Head: 1. No ICA or M1 occlusion. 2. The basilar artery is patent. Neck: 1. No significant stenosis of either internal carotid artery by NASCET criteria. 2. The vertebral arteries are codominant. 3. Multifocal atherosclerosis. This document has been electronically signed by: Vijay Epps MD on 05/04/2024 02:33:01 External Record Review External record reviewed: Inpatient record Chronic Conditions Patient?s care impacted by: Diabetes and Hypertension NIH Stroke Scale Level of Consciousness: Alert Level of Consciousness Questions: Answers neither question correctly Level of Consciousness Commands: Performs neither task correctly Best Gaze: Normal Visual: No visual loss Facial Palsy: Normal Motor Arm (Right): Drift Motor Arm (Left): Drift Motor Leg (Right): Drift Motor Leg (Left): Drift Limb Ataxia: Absent Sensory: Normal Best Language: Severe aphasia Dysarthia: Normal Extinction and Inattention: No abnormality Score: 10 Critical Care Time Critical Care Time Critical Care Time: Yes Total Critical Care Time: 45 Attestation: Critical Care: The patient was critically ill with a high probability of imminent or life threatening deterioration. I spent greater than 30 minutes of discontinuous time evaluating the patient,delivering critical care at the bedside, discussing and evaluating pertinent data with consultants. Critical care time does not include time spent performing separately billable procedures or teaching. Total time spent performing critical care was 45 minutes. Discharge Plan Discharge Clinical Impression: Stroke Patient Disposition: Admitted As Inpatient
[2024-05-04 01:14] LABS: Prothrombin Time Whole Bld POC 13.6 sec (11.1-13.5); ~PT, ~INR - Anti Coag Clinic 1.1 (0.9-1.1)
[2024-05-04 01:26] LABS: Glucose, Whole Blood 133 mg/dL (60-115)
[2024-05-04] MEDS: iohexoL 350 MG/ML 100 ML INFUS..BTL 70 ML IV (01:50)
[2024-05-04 02:00] LABS: MANUAL DIFF FLAG NO
[2024-05-04 02:01] LABS: Basophils Absolute Auto 0.1 X10*3/uL (0.0-0.2); Basophils Percent Auto 0.6 % (0-2); Eosinophils Absolute Auto 0.1 X10*3/uL (0.0-0.4); Hematocrit 37.5 % (42.0-52.0); Hemoglobin 12.4 g/dl (14.0-18.0); Imm Gran Abs Auto 0.02 X10*3/uL (0.00-0.03); Imm Gran Pct Auto 0.3 % (0.0-0.4); Lymphocytes Percent Auto 12.8 % (20-40); Mean Corpuscular HGB Conc 33.1 g/dl (31.0-36.0); Mean Corpuscular Hemoglobin 28.1 pg (27.0-33.0); Mean Platelet Volume 9.7 fL (9.4-12.4); Monocytes Absolute Auto 0.5 X10*3/uL (0.1-1.2); Monocytes Percent Auto 6.2 % (2-11); Neutrophils Absolute Auto 6.2 x10*3/uL (2.0-8.3); Neutrophils Percent Auto 79.1 % (45-73); Platelet Count 204 X10*3/uL (160-400); Red Blood Count 4.41 X10*6/uL (4.60-5.80); Red Cell Distribution Width 13.6 % (11.0-16.0); White Blood Count 7.9 X10*3/uL (4.8-10.8)
[2024-05-04 02:06] LABS: INTERNATIONAL NORM RATIO 1.2 (0.9-1.1); Prothrombin Time 14.4 SEC (10.9-12.4)
--- NOTE | 2024-05-04 02:07 | MHC.EDTECH ---
ekg obtained and handed to dr ndiaye at 0201. due to machine error no matching order was found so july not may to chart
[2024-05-04 02:09] LABS: Partial Thromboplastin Time 46.9 SEC (26.0-36.8)
--- NOTE | 2024-05-04 02:10 | PC.NURSE ---
after arrival to room from CT scan, pt is able to answer question, follow commands and is A/Ox3. mother at bedside. MD at bedside
[2024-05-04 02:14] LABS: Stroke Lab Use COMPLETE
--- OUTSIDE RECORDS SUMMARY | 2024-05-04 02:14 | XMS_ITS | Clinical Summary ---
Author Organization [address] [facility] Address [address] [place] [address] Phone Care Team Providers Care Central Sterile Tech Name Role Phone Félix Carlton MD Primary Care Provider Allergies No known active allergies Medications ammonium lactate (AmLactin) 12 % lotion Apply topically if needed for dry skin. 400 g 2 4 02/27/20 Active Encounters Date Type Department Care Team Description 03/17/2024 11:00 AM EST Office Visit Orthopedic Surgery [place] [id number] [phone] Remington Linda DPM History of amputation of lesser toe of right foot (CMS/HCC) (Primary Dx); Controlled type 2 diabetes mellitus with diabetic polyneuropathy, without long-term current use of insulin (CMS/HCC); Callus; Midfoot ulceration, right, with fat layer exposed (CMS/HCC) 03/02/2024 Telephone Orthopedic Surgery [facility] [address] [phone] Lyubov Sahni 02/27/2024 3:00 PM EST Consult Orthopedic Surgery [facility] [address] [phone] Remington Linda DPM Controlled type 2 diabetes mellitus with diabetic polyneuropathy, without long-term current use of insulin (CMS/HCC) (Primary Dx); History of amputation of lesser toe of right foot (CMS/HCC); Localized edema; Callus; Onychomycosis; Midfoot ulceration, right, with fat layer exposed (CMS/HCC) from Last 3 Months Social History Tobacco Use Types Packs/Day Years Used Date Smoking Tobacco: Never Assessed Sex and Gender Information Value Date Recorded Sex Assigned at Not on file Legal Sex Male 4:38 PM EDT Gender Identity Not on file Sexual Orientation Not on file Last Filed Vital Signs Vital Sign Reading Time Taken Comments Blood Pressure - - Pulse - - Temperature - - Respiratory Rate - - Oxygen Saturation - - Inhaled Oxygen Concentration - - Weight 109 kg (240 lb) 03/17/2024 10:44 AM EST Height 190.5 cm (6' 3 ) 03/17/2024 10:44 AM EST Body Mass Index 30 03/17/2024 10:44 AM EST Plan of Treatment Upcoming Encounters Date Type Department Care Team (Late st Contact Info) Description 06/10/2024 2:30 PM EDT Office Visit Orthopedic Surgery - [place] [address] [phone] Remington Linda DPM [address] [address] Health Maintenance Due Date Last Done Comments Diabetes: Annual GFR (Glomerular Filtration Rate) 1965 Diabetes: Annual Foot Exam 1975 Diabetes: Annual Retina Eye Exam 1975 DTaP,Tdap,and Td Vaccines (1 - Tdap) 01/10/1984 Hepatitis B Vaccines (1 of 3 - 19+ 3-dose series) 01/10/1984 Zoster Vaccines (1 of 2) 2015 Pneumococcal Vaccine: Pediatrics (0 to 5 Years) and At-Risk Patients (6 to 64 Years) (2 of 2 - PCV) 10/23/2017 10/23/2016 COVID-19 Vaccine ( - 2023-2 5 season) 2023 05/25/2021, 04/28/2021 Cholesterol Screening (Lipid Panel) 01/19/2024 Colorectal Cancer Screening: Colonoscopy 01/19/2024 Depression Screening 01/19/2024 HIV Screening 01/19/2024 Hepatitis C Screening 01/19/2024 Medicare Annual Wellness Visit 01/19/2024 Social Influencers of Health Screening 01/19/2024 Diabetes: Annual Urine Albumin-Creatinine Ratio (uACR) 02/27/2024 Diabetes: Blood Sugar Contro l Test (HGBA1C) 02/27/2024 RSV Immunization Patients 60 + Years Old (1 - 1-dose 75+ series) 01/10/2040 Influenza Vaccine Completed 01/02/2024 HIB Vaccines Aged Out No longer eligi ble based on patient's age to complete this topic HPV Vaccines Aged Out No longer eligi ble based on patient's age to complete this topic Hepatitis A Vaccines Aged Out No long er eligible based on patient's age to complete this topic IPV Vaccines Aged Out No longer eligi ble based on patient's age to complete this topic MMR Vaccines Aged Out No longer eligi ble based on patient's age to complete this topic Meningococcal ACWY Vaccine Aged Out N o longer eligible based on patient's age to complete this topic RSV Immunization Patients Under 20 months Aged Out No longer eligible b ased on patient's age to complete this topic Varicella Vaccines Aged Out No longer eligible based on patient's age to complete this topic Insurance MEDICARE MEDICAID - [place] Care Teams Central Sterile Tech Relationship Specialty Start Date End Date Félix Carlton MD [address] [place] [address] [address] OLIVIA Pruitt PCP - General 01/09/24
--- OUTSIDE RECORDS SUMMARY | 2024-05-04 02:14 | XMS_ITS ---
Author Organization [facility] Address Unknown Medications Medication Dose Frequency Directions Start Date End Keon e metFORMIN HCl Oral Tablet 1000 MG 1 {tbl} 12 h Give 1 tablet by olivia th two times a day for DM2 09/12/2023 Omeprazole Oral Capsule Delayed Release 20 MG 2 {Capsule} Give 2 capsule by mouth in the morning for GERD 09/12/2023 Gabapentin Oral Capsule 100 MG 1 {Capsule} Give 1 capsule by mouth every 12 hours as needed for neuropathic pain 09/11/2023 Acetaminophen Tablet 325 MG 2 {tbl} Give 2 tablet by olivia th every 6 hours as needed for Pain Pain Total dosage for acetaminophen and medications that contain acetaminophen should not exceed 3 grams / 24 hours. 09/12/2023 Acetaminophen Tablet 325 MG 2 {tbl} Give 2 tablet by olivia th every 6 hours as needed for Fever greater than 100.0F Total dosage for acetaminophen and medications that contain acetaminophen should not exceed 3 grams / 24 hours. 09/12/2023 Bisacodyl Suppository 10 MG 1 Insert 1 suppository rectally as needed for If no bowel movement for 8 hours after Milk of Magnesia 09/12/2023 Glutose 45 Gel 40 % 1 {Dose} Give 1 d ose by mouth as needed for hypoglycemic protocol Give one tube PO/SL if FSBS <50 and able to swallow PRN. Recheck FSBS 10 minutes after administration and call provider. 09/12/2023 GlucaGen HypoKit Solution Reconstituted 1 MG 1 mg Inject 1 mg subcutaneously as needed for hypoglycemic protocol Special instructions: Glucagen 1 mg hypokit subcutaneous if FSBS below 60 and unable to swallow.Recheck FSBS in 10 minutes and update provider. 09/12/2023 Magnesium Oxide Tablet 800 mg 12 h Give 800 mg by mouth two times a day for supplement related to HYPOMAGNESEMIA (E83.42) 09/14/2023 Metoprolol Succinate ER Oral Tablet Extended Release 24 Hour 25 MG 25 mg 24 h Give 25 mg by mouth one time a day related to ESSENTIAL (PRIMARY) HYPERTENSION (I10) 09/28/2023 Metoprolol Succinate ER Oral Tablet Extended Release 24 Hour 50 MG 1 {tbl} 24 h Give 1 tablet by olivia th one time a day for HTN hold for SBP <90 or HR <60 to be taken with 25mg for total dose of 75mg 09/28/2023 Eliquis Oral Tablet 5 MG 5 {tbl} 12 h Give 5 tablet orally every 12 hours for A fib 10/02/2023 Medications Administered Medication Dose Frequency Status Start Date End Date metFORMIN HCl Oral Tablet 1000 MG 1 {tbl} 12 h 10/16/2023 Omeprazole Oral Capsule Manju yed Release 20 MG 2 {Capsule} 10/16/2023 Gabapentin Oral Capsule 100 MG 1 {Capsule} 09/11/2023 Acetaminophen Tablet 325 MG 2 {tbl} Acetaminophen Tablet 325 MG 2 {tbl} Bisacodyl Suppository 10 MG 1 Glutose 45 Gel 40 % 1 {Dose} 09/12/2023 GlucaGen HypoKit Solution Reconstituted 1 MG 1 mg 09/12/2023 Magnesium Oxide Tablet 800 mg 12 h 024 Metoprolol Succinate ER Oral Tablet Extended Release 24 Hour 25 MG 25 mg 24 h 10/16/2023 Metoprolol Succinate ER Oral Tablet Extended Release 24 Hour 50 MG 1 {tbl} 24 h 10/16/2023 Eliquis Oral Tablet 5 MG 5 {tbl} 12 h 10/15 Problems Problem Status Start Date End Date HYPOMAGNESEMIA (Primary) (E83.42 - ICD-10-CM) ACTIVE 09/11/2023 TYPE 2 DIABETES MELLITUS WIT H FOOT ULCER (E11.621 - ICD-10-CM) ACTIVE 09/11/2023 UNSPECIFIED FALL, INITIAL ENCOUNTER (W19.XXXA - ICD-10 -CM) ACTIVE 09/11/2023 MUSCLE WEAKNESS (GENERALIZED) (M62.81 - ICD-10-CM) ACT ANIYA 09/11/2023 UNSTEADINESS ON FEET (R26.81 - ICD-10-CM) ACTIVE 09/11/2023 OTHER LACK OF COORDINATION (R27.8 - ICD-10-CM) ACTIVE 09/11/2023 PAROXYSMAL ATRIAL FIBRILLATION (I48.0 - ICD-10-CM) ACT ANIYA 09/11/2023 OTHER REDUCED MOBILITY (Z74.09 - ICD-10-CM) ACTIVE 09/11/2023 NON-PRESSURE CHRONIC ULCER O F OTHER PART OF UNSPECIFIED FOOT WITH UNSPECIFIED SEVERITY (L97.509 - ICD-10-CM) ACTIVE 024 OTHER ABNORMALITIES OF GAIT AND MOBILITY (R26.89 - ICD-10-CM) ACTIVE 09/20/2023 ESSENTIAL (PRIMARY) HYPERTENSION (I10 - ICD-10-CM) ACT ANIYA 09/27/2023 UNSPECIFIED FALL, SUBSEQUENT ENCOUNTER (W19.XXXD - ICD-10-CM) ACTIVE 09/11/2023 Encounters Encounter Performer Performer Role Encounter Diagnoses Location Date Discharge - Discharged / Transferred to SNF - long-term [facility] 4 12:31 pm EDT - 4 01:07 pm EDT Immunizations Vaccine Date COVID-19 Bivalent Vaccine Influenza, high dose seasonal pneumococcal polysaccharide PPV23 2016 12:00 am EDT Social History
[2024-05-04 02:25] LABS: Troponin-I High Sensitivity 5.8 ng/L (<3.5-35.0)
[2024-05-04 02:32] LABS: Alanine Aminotransferase 6 U/L (0-40); Albumin Level 2.7 g/dL (3.5-5.0); Anion Gap 16 (12-20); Aspartate Amino Transferase 19 U/L (5-37); Bilirubin Direct < 0.2 mg/dL (0.0-0.5); Bilirubin Total 0.2 mg/dL (0.0-1.0); Blood Urea Nitrogen 27 mg/dL (9-16); Calcium 8.4 mg/dL (8.4-10.2); Carbon Dioxide 19 mmol/L (22-29); Chloride 107 mmol/L (96-108); Cholesterol 244 mg/dL (<200); Creatinine Clr Calc Pharmacy 53.8; Estimated Glomerular Filt Rate 34; Ethanol < 10 mg/dL; Glucose Random 156 mg/dL (60-115); HDL Cholesterol 30 mg/dL (>40); LDL Cholesterol Calculated 162 mg/dL (<100); Potassium 3.6 mmol/L (3.3-5.1); Sodium 138 mmol/L (135-145); Total Protein 6.3 g/dL (6.5-8.0); Triglycerides 260 mg/dL (<150)
[2024-05-04 02:41] LABS: Influenza A PCR NEGATIVE (Negative); Influenza B PCR NEGATIVE (Negative); Resp Syncy Virus RNA Qual PCR NEGATIVE (Negative); SARS COV2 PCR INHOUSE NEGATIVE (Negative)
[2024-05-04 03:18] LABS: Alkaline Phosphatase 54 U/L (39-117)
--- NOTE | 2024-05-04 03:45 | PM.IMHP ---
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 He reports that he is not sure why he is here but is alert and oriented x3. His had reported that he was scheduled for colonoscopy and endoscopy soon and has stopped taking his Eliquis for the past week, just started Lovenox injections last night as well as terazosin for urinary retention. Shortly after taking these medications he developed altered mental status and dysarthria. When his found him he was pale, altered and unable to answer questions or follow commands. When EMS arrived his BP was 160/70 and after arriving to the ED the patient's mental status returned to baseline. He denies any chest pain, shortness of breath, cough, fever, chills or headache. No change in vision, weakness, confusion, dizziness. He denies any urinary symptoms including frequency, urgency or dysuria. Review of Systems Constitutional: Constitutional: Denies body ache(s), Denies chills, Denies fatigue, Denies fever(s) and Denies headache(s) Eyes: Eyes: Denies change in vision, Denies loss of vision and Denies photophobia ENT: Denies headache(s), Denies nasal congestion, Denies nasal discharge and Denies sore throat Cardiovascular: Cardiovascular: Denies chest pain, Denies syncope, Denies rapid heart rate, Denies leg edema and Denies dyspnea Respiratory: Respiratory: Denies chest congestion, Denies cough, Denies dyspnea and Denies wheezing Gastrointestinal: Gastrointestinal: Denies melena, Denies hematochezia, Denies constipation, Denies diarrhea, Denies nausea and Denies vomiting Genitourinary: Genitourinary: Reports difficulty urinating, Denies dysuria and Denies urinary urgency Musculoskeletal: Musculoskeletal: Denies myalgias Integumentary/Breasts: Skin/Breast: Denies rash Neurologic: Denies syncope, Denies headache(s), Denies loss of vision, Denies memory loss and Denies seizure-like activity Psychiatric: Psychiatric: Denies memory loss Endocrine: Endocrine: Denies fatigue Hematologic/Lymphatic: Hematologic/Lymphatic: Denies easy bleeding and Denies easy bruising Allergic/Immunologic: Allergic/Immunologic: Denies wheezing [facility] Medical History (Updated 05/04/24 @ 03:51 by Namrata Flowers PA-C) Chronic kidney disease (CKD), stage III (moderate) Overweight (BMI 25.0-29.9) Obesity (BMI 30-39.9) Benign essential hypertension Diabetes mellitus Type II diabetes mellitus Uncontrolled diabetes mellitus Paroxysmal atrial fibrillation Diabetic foot infection COVID-19 Family History Mother No problems noted. Father No problems noted. Surgical History No pertinent past surgical history Social History Household Members: None Housing: Apartment Do you presently have visiting nurse or other home services: No Unable to assess alcohol history related to: Refusing to respond Alcohol intake: former Patient Tobacco Use Status: Former Tobacco user Tobacco use type: Cigarette Cigarette Packs Per Day: 0.5 Cigarettes Per Day: 10.0 e-Cigarette/Vaping Use: Never Used Second Hand Smoke Exposure: No Advance Directives: Yes Advance Directives on File: Yes Advance Directives Date on File: 09/17/23 service: No Current occupational status: unemployed Cognitive needs: No Hearing needs: No Vision needs: No Narrative: No smoking, alcohol or drug use Meds Allergies Allergy/AdvReac Type Severity Reaction Status Date / Time No Known Allergies Allergy Verified 05/04/24 02:04 [No Known Allergies*] Active Medications: Current Medications Acetaminophen (Acetaminophen 325 Mg Tablet) 975 mg PO Q6H PRN PRN Reason: Pain, Mild 1-3,fever,headache Calcium Carbonate (Calcium Carbonate 750 Mg Tab.Chew) 750 mg PO Q4H PRN PRN Reason: Heartburn Enoxaparin Sodium (Enoxaparin Sodium 40 Mg/0.4 Ml Syringe) 40 mg SUBCUT Q24H MICHELLE Glucose (Glucose Gel 15 Gm Gel..Gram.) 15 gm PO Q15M PRN; Protocol PRN Reason: per Hypoglycemia Standing Ord. Magnesium Hydroxide (Milk Of Magnesia 30 Ml Oral.Susp) 30 ml PO DAILY PRN PRN Reason: Constipation Melatonin (Melatonin 3 Mg Tablet) 6 mg PO BEDTIME PRN PRN Reason: Insomnia Ondansetron HCl (Ondansetron Hcl 4 Mg/2 Ml Vial) 4 mg IVPUSH Q8H PRN PRN Reason: Nausea and Vomiting Sodium Chloride (0.9 % Sodium Chloride Flush 3 Ml Syringe) 3 ml IVFLUSH QSHIFT [facility] Home Medications ?Medication ?Instructions ?Recorded ?Confirmed ?Last Taken ?Type gabapentin 100 mg capsule 100 mg PO BID PRN neuropathic pain 08/25/23 01/05/24 Unknown History Physical Exam Vital Signs and Narrative: Vital Signs: Last Vital Signs Temp 97.8 F 05/04/24 01:58 Pulse 91 05/04/24 01:58 Resp 19 05/04/24 01:58 BP 148/79 H 05/04/24 01:58 Pulse Ox 95 05/04/24 01:58 O2 Del Method Room Air 05/04/24 01:58 BMI result Body Mass Index 31.3 General: AOx3, no acute distress Resp: CTA bilaterally CVS: S1, S2, RRR GI: +BS, NT, no distention Skin: Warm, dry Neuro: Cranial nerves II-XII grossly intact bilaterally. Motor grossly intact bilaterally. Sensation and motor intact 5/5 bilateral upper and lower extremities. Extremities: No LE edema Psych: Appropriate affect Eyes: Direct Ophthalmoscopy: No photophobia Results Labs 05/04/24 01:55 05/04/24 01:55 Labs: Laboratory Results - last 24 hr 05/04/24 05/04/24 05/04/24 01:10 01:23 01:55 MCV 85.0 MCH 28.1 MCHC 33.1 RDW 13.6 Plt Count 204 D MPV 9.7 Immature Gran % (Auto) 0.3 Neut % (Auto) 79.1 H Lymph % (Auto) 12.8 L [place] % (Auto) 6.2 Eos % (Auto) 1.0 Baso % (Auto) 0.6 Lymph # (Auto) 1.0 L [place] # (Auto) 0.5 Eos # (Auto) 0.1 Baso # (Auto) 0.1 Abs Immat Gran (auto) 0.02 Absolute Neuts (auto) 6.2 Absolute Nucleated RBC 0.000 Nucleated RBC % (auto) 0.0 PT 14.4 H Whole Blood PT 13.6 H INR 1.2 H Whole Blood INR 1.1 APTT 46.9 H Anion Gap 16 Estim Creat Clear Calc 53.8 Estimated GFR 34 POC Glucose 133 H Random Glucose 156 H Calcium 8.4 D Total Bilirubin 0.2 Direct Bilirubin < 0.2 AST 19 ALT 6 Alkaline Phosphatase 54 Troponin I High Sens 5.8 Total Protein 6.3 L Albumin 2.7 L Triglycerides 260 H Cholesterol 244 H LDL Cholesterol, Calc 162 H HDL Cholesterol 30 L Ethyl Alcohol < 10 Influenza Type A (PCR) NEGATIVE Influenza Type B (PCR) NEGATIVE RSV RNA Qual (PCR) NEGATIVE SARS-CoV-2 RNA (RT-PCR) NEGATIVE Assessment and Plan (1) TIA (transient ischemic attack): Status: Acute (2) Obesity (BMI 30-39.9): Status: Acute Plan Patient is a 59-year-old male with a past medical history significant for CKD 3, HTN, T2 DM, paroxysmal AFib (stopped eliquis 1 week ago), and 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 Symptoms have since resolved. Serologic workup normal aside from elevated lipid panel. Head CT with multiple bilateral infarctions including both frontal lobes in both basal ganglia regions, no acute intracranial hemorrhage. CTA head and neck normal. Chest x-ray with mild bibasilar atelectasis/pneumonitis, patient asymptomatic. TIA - no infectious etiology, WBC normal, vital signs normal - presented with dysarthria and confusion which has resolved - head CT with bilateral infarctions including both frontal lobes and both basal ganglia regions, no intracranial hemorrhage - CTA head and neck normal - UA negative and chest x-ray negative for pneumonia - COVID/flu/RSV negative - lipid panel elevated - ASA 325 - start atorvastatin 80 mg daily - admit to med tele - neuro checks q.2h - bedside eval prior to p.o. - neurology consult, appreciate Neurology input regarding MRI - PT/OT eval CKD 3 - Cr 2.01, around baseline - monitor BMP HTN - continue home meds when appropriate T2 DM - sliding scale insulin - hold metformin - diabetic diet once bedside swallow eval cleared Paroxysmal AFib - no longer on Eliquis, recently started Lovenox - monitor on tele Full code VTE prophylaxis: Lovenox Patient with likely TIA, presented with aphasia and confusion, resolved, requiring admission for at least 2 midnights stay for further workup and monitoring. Quality Stroke Does the patient have a stroke diagnosis?: No VTE Prior VTE?: No VTE Risk Level:: Medical - moderate - high VTE Device Contraindication: Treatment Not Indicated VTE Drug Contraindication: N/A - Med Ordered
[2024-05-04] MEDS: Aspirin 325 MG TABLET PO (05:18)
[2024-05-04 07:35] LABS: Glucose, Whole Blood 145 mg/dL (60-115)
[2024-05-04] MEDS: 0.9 % Sodium Chloride Flush 3 ML SYRINGE IVFLUSH ×2 (08:50→23:45)
[2024-05-04] MEDS: Enoxaparin Sodium 40 MG/0.4 ML SYRINGE SUBCUT (08:50)
[2024-05-04] MEDS: Atorvastatin Calcium 80 MG TABLET PO (08:50)
--- NOTE | 2024-05-04 08:50 | PHA.MEDREC ---
Addendum entered by Unruly Erazo RPh 05/04/24 14:18: Med rec was reviewed by [facility]. Communicated to provider Glynn Sorenson that patient's mother told Zoey that she has been giving him both Eliquis and Enoxaparin. Original Note: Pharmacy Consult ? Medication Reconciliation Pharmacy has completed the medication reconciliation. Tried to speak to patient, however he was altered. Spoke to patients mother over the phone to confirm med list. Mother states patient is no longer taking Tamsulosin 0.4 mg ( patient got a rash). Mother confirm patient is on Eliquis 5 mg BID and Enoxaparin 100 mg/Ml BID because patient has a procedure coming up and he is to take Enoxaparin 10 days prior to procedure and STOP Eliquis only 3 days prior to procedure. Mother has been giving patient both Eliquis and Enoxaparin. Mother confirmed Metoprolol succ 25 mg she give to patient TID not 3 tablets at once like claim states. Mother was very concerned because patient just started taking Terazosin 5 mg, Patient only took 1 dose last night prior to coming to [facility]. mother feel like patient is have an allergic reaction to medication.
[2024-05-04 09:47] LABS: MANUAL DIFF FLAG NO
[2024-05-04 09:50] LABS: Basophils Percent Auto 0.6 % (0-2); Eosinophils Percent Auto 0.4 % (0-4); Hematocrit 37.4 % (42.0-52.0); Hemoglobin 12.1 g/dl (14.0-18.0); Imm Gran Abs Auto 0.02 X10*3/uL (0.00-0.03); Imm Gran Pct Auto 0.3 % (0.0-0.4); Lymphocytes Absolute Auto 1.3 X10*3/uL (1.2-4.9); Lymphocytes Percent Auto 17.7 % (20-40); Mean Corpuscular HGB Conc 32.4 g/dl (31.0-36.0); Mean Corpuscular Hemoglobin 27.7 pg (27.0-33.0); Mean Corpuscular Volume 85.6 fL (80.0-98.0); Mean Platelet Volume 9.9 fL (9.4-12.4); Monocytes Absolute Auto 0.3 X10*3/uL (0.1-1.2); Monocytes Percent Auto 4.1 % (2-11); Neutrophils Absolute Auto 5.5 x10*3/uL (2.0-8.3); Neutrophils Percent Auto 76.9 % (45-73); Platelet Count 241 X10*3/uL (160-400); Red Blood Count 4.37 X10*6/uL (4.60-5.80); Red Cell Distribution Width 13.7 % (11.0-16.0); White Blood Count 7.1 X10*3/uL (4.8-10.8)
[2024-05-04 10:06] LABS: Anion Gap 15 (12-20); Blood Urea Nitrogen 32 mg/dL (9-16); Calcium 8.6 mg/dL (8.4-10.2); Carbon Dioxide 24 mmol/L (22-29); Chloride 103 mmol/L (96-108); Creatinine Clr Calc Pharmacy 48.5; Estimated Glomerular Filt Rate 30; Glucose Random 154 mg/dL (60-115); Sodium 138 mmol/L (135-145)
--- NOTE | 2024-05-04 11:05 | PM.EVENT ---
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 Symptoms have since resolved. Serologic workup normal aside from elevated lipid panel. Head CT with multiple bilateral infarctions including both frontal lobes in both basal ganglia regions, no acute intracranial hemorrhage. CTA head and neck normal. Chest x-ray with mild bibasilar atelectasis/pneumonitis, patient asymptomatic. TIA presented with dysarthria and confusion which has resolved head CT with bilateral infarctions including both frontal lobes and both basal ganglia regions, no intracranial hemorrhage CTA head and neck normal UA negative and chest x-ray negative for pneumonia COVID/flu/RSV negative lipid panel elevated ASA 325, atorvastatin 80 mg daily neurology consult, appreciate Neurology input regarding MRI PT>STR IRAIDA on CKD 3 Cr 2.23 today monitor BMP HTN continue home meds when appropriate T2 DM sliding scale insulin hold metformin diabetic diet once bedside swallow eval cleared Paroxysmal AFib no longer on Eliquis, recently started Lovenox monitor on tele Full code VTE prophylaxis: Lovenox Patient with likely TIA, presented with aphasia and confusion, resolved, requiring admission for at least 2 midnights stay for further workup and monitoring. Time Spent With Patient Time: Total time managing care of this patient today ____ minutes.
--- NOTE | 2024-05-04 11:22 | PM.NEUROCN ---
History of Present Illness Data of Consult Service Date: 05/04/24 Primary Care Provider: Félix Carlton MD [facility] Reason for consult: confusion 59 years old man with underlying history of atrial fibrillation for some reason not taking blood thinner at this time there was put on subQ heparin came to hospital with change in mental status. Family found him in confused state. According to his he was ?incoherent?. She called EMS and he was taking to hospital. When he arrived here he was noted to have no obvious focal deficit. Initial head CT and CTA did not reveal any acute lesion. Now he was feeling better. There was no history of recent cold or flu-like illness Review of Systems Review of Systems: No cardiac symptom cold or flu-like illness PMFSH Past Medical History Medical History Chronic kidney disease (CKD), stage III (moderate) Overweight (BMI 25.0-29.9) Obesity (BMI 30-39.9) Benign essential hypertension Diabetes mellitus Type II diabetes mellitus Uncontrolled diabetes mellitus Paroxysmal atrial fibrillation Diabetic foot infection COVID-19 Family History Family History Mother No problems noted. Father No problems noted. Surgical History Surgical History No pertinent past surgical history Social History Social History Household Members: None Housing: Apartment Do you presently have visiting nurse or other home services: No Unable to assess alcohol history related to: Refusing to respond Alcohol intake: former Patient Tobacco Use Status: Former Tobacco user Tobacco use type: Cigarette Cigarette Packs Per Day: 0.5 Cigarettes Per Day: 10.0 Smoked in Last 30 Days: No e-Cigarette/Vaping Use: Never Used Second Hand Smoke Exposure: No Use of substances other than those prescribed or required for medical reasons: No Advance Directives: Yes Advance Directives on File: Yes Advance Directives Date on File: 09/17/23 Nutrition Risks: No Nutritional Risk service: No Current occupational status: unemployed Cognitive needs: No Hearing needs: No Vision needs: No Meds Allergies Allergy/AdvReac Type Severity Reaction Status Date / Time No Known Allergies Allergy Verified 05/04/24 02:04 [No Known Allergies*] Active Medications: Current Medications Acetaminophen (Acetaminophen 325 Mg Tablet) 975 mg PO Q6H PRN PRN Reason: Pain, Mild 1-3,fever,headache Aspirin (Aspirin Enteric Coated 81 Mg Tablet.Dr) 81 mg PO DAILY [facility] Atorvastatin Calcium (Atorvastatin Calcium 80 Mg Tablet) 80 mg PO DAILY [facility] Last Admin: 05/04/24 08:50 Dose: 80 mg Calcium Carbonate (Calcium Carbonate 750 Mg Tab.Chew) 750 mg PO Q4H PRN PRN Reason: Heartburn Dextrose (Dextrose 50 % 25 Gm/50 Ml Syringe) 25 gm IVPUSH Q15M PRN; Protocol PRN Reason: per Hypoglycemia Standing Ord. Enoxaparin Sodium (Enoxaparin Sodium 40 Mg/0.4 Ml Syringe) 40 mg SUBCUT Q24H [facility] Last Admin: 05/04/24 08:50 Dose: 40 mg Glucose (Glucose Gel 15 Gm Gel..Gram.) 15 gm PO Q15M PRN; Protocol PRN Reason: per Hypoglycemia Standing Ord. Insulin Human Lispro (Insulin Lispro 100 Unit/Ml 3 Ml Vial) 0 unit SUBCUT QIDACHS [facility]; Protocol Last Admin: 05/04/24 08:47 Dose: Not Given Magnesium Hydroxide (Milk Of Magnesia 30 Ml Oral.Susp) 30 ml PO DAILY PRN PRN Reason: Constipation Melatonin (Melatonin 3 Mg Tablet) 6 mg PO BEDTIME PRN PRN Reason: Insomnia Ondansetron HCl (Ondansetron Hcl 4 Mg/2 Ml Vial) 4 mg IVPUSH Q8H PRN PRN Reason: Nausea and Vomiting Sodium Chloride (0.9 % Sodium Chloride Flush 3 Ml Syringe) 3 ml IVFLUSH QSHIFT [facility] Last Admin: 05/04/24 08:50 Dose: 3 ml Home Medications ?Medication ?Instructions ?Recorded ?Confirmed ?Last Taken ?Type gabapentin 100 mg capsule 100 mg PO BID PRN neuropathic pain 08/25/23 05/04/24 Unknown History ammonium lactate 12 % lotion 1 appl topical DAILY PRN Rash 05/04/24 05/04/24 Unknown History enoxaparin 100 mg/mL subcutaneous 100 mg subcut BID@1015,2215 05/04/24 05/04/24 05/03/24 22:15 History syringe (Lovenox) metoprolol succinate 25 mg 25 mg PO TID 05/04/24 05/04/24 05/03/24 History tablet,extended release 24 hr Physical Exam Vital Signs: Vital Signs: Last Vital Signs Temp 97.1 F 05/04/24 09:09 Pulse 98 05/04/24 09:20 Resp 16 05/04/24 09:09 BP 111/59 L 05/04/24 09:09 Pulse Ox 96 05/04/24 09:09 O2 Del Method Room Air 05/04/24 09:09 BMI result Body Mass Index 31.3 Neuro: Other: He is alert and awake with normal spontaneity of speech fluency comprehension and flat affect. Face is symmetrical. Visual bowman are full. There is no focal arm or leg weakness. Deep tendon reflexes are absent with flexor plantars. Results Labs 05/04/24 08:19 05/04/24 08:19 Labs: Short CBC 05/04/24 05/04/24 Range/Units 01:55 08:19 WBC 7.9 7.1 (4.8-10.8) X10*3/uL Hgb 12.4 L 12.1 L (14.0-18.0) g/dl Hct 37.5 L 37.4 L (42.0-52.0) % Plt Count 204 D 241 (160-400) X10*3/uL BMP 05/04/24 05/04/24 01:55 08:19 Sodium 138 138 Potassium 3.6 4.0 Chloride 107 103 Carbon Dioxide 19 L 24 BUN 27 H 32 H Creatinine 2.01 H 2.23 H Calcium 8.4 D 8.6 Liver Function 05/04/24 Range/Units 01:55 Total Bilirubin 0.2 (0.0-1.0) mg/dL Direct Bilirubin < 0.2 (0.0-0.5) mg/dL AST 19 (5-37) U/L ALT 6 (0-40) U/L Alkaline Phosphatase 54 (39-117) U/L Albumin 2.7 L (3.5-5.0) g/dL Head CT revealed multiple bilateral deep chronic ischemic infarctions with no obvious lesion suggestive of an acute lesion. CTA did not reveal any large vessel disease. Assessment and Plan (1) TIA (transient ischemic attack): Status: Acute 59 years old man with multiple bilateral chronic ischemic infarction of brain probably related to atrial fibrillation and hypertension resulting in physical and cognitive difficulties came to hospital when he was found confused or incoherent. Now he was back to baseline. This might be seizure disorder of no other obvious reason is found. An EEG is recommended. Procedures Date of Service Date of Service: 05/04/24
[2024-05-04 12:32] LABS: Glucose, Whole Blood 150 mg/dL (60-115)
--- NOTE | 2024-05-04 16:28 | MHC.CM.PN ---
PT REPORTS HE LIVES ALONE AND IS INDEPENDENT AT BASELINE HE HAS DM SUPPLIES FOR DME AND NO SERVICES HCP ON FILE PCP: [facility] DELIVERED PT AWARE THEY ARE RECOMMENDING STR, HE STATES HE IS NOT WILLING TO DO THAT, NOR IS HE WILLING TO HAVE [facility] MOTHER WILL TRANSPORT
[2024-05-04] MEDS: Insulin Lispro 100 UNIT/ML 3 ML VIAL SUBCUT (18:00)
[2024-05-04 18:01] LABS: Glucose, Whole Blood 173 mg/dL (60-115)
[2024-05-04 20:03] LABS: Glucose, Whole Blood 146 mg/dL (60-115)
--- NOTE | 2024-05-05 | EEG_ITS ---
This is a 16 channel EEG with an EKG lead. The patient is reported awake and restless during the tracing. Background EEG rhythm is 7 to 8 hertz 5 to 20 microvolt posteriorly, lower amplitude fast anteriorly. Photic stimulation does not produce any significant abnormality. Hyperventilation is not performed. Cardiac lead does not reveal any significant abnormality. No sharp wave spikes or paroxysmal tendency noted. IMPRESSION: Mild slowing with no evidence of seizure disorder. MD LLOYD Benson/DILIP / [id number]
[2024-05-05 04:00] VITALS: BP 148/68; PULSE 88; RESP 18; TEMP 36.3; O2SAT 97
[2024-05-05 06:30] LABS: MANUAL DIFF FLAG NO
[2024-05-05 06:34] LABS: Basophils Absolute Auto 0.1 X10*3/uL (0.0-0.2); Basophils Percent Auto 0.8 % (0-2); Eosinophils Absolute Auto 0.2 X10*3/uL (0.0-0.4); Eosinophils Percent Auto 2.8 % (0-4); Hematocrit 37.1 % (42.0-52.0); Hemoglobin 12.1 g/dl (14.0-18.0); Imm Gran Abs Auto 0.01 X10*3/uL (0.00-0.03); Imm Gran Pct Auto 0.2 % (0.0-0.4); Lymphocytes Absolute Auto 1.3 X10*3/uL (1.2-4.9); Lymphocytes Percent Auto 19.7 % (20-40); Mean Corpuscular HGB Conc 32.6 g/dl (31.0-36.0); Mean Corpuscular Hemoglobin 27.5 pg (27.0-33.0); Mean Corpuscular Volume 84.3 fL (80.0-98.0); Mean Platelet Volume 9.7 fL (9.4-12.4); Monocytes Absolute Auto 0.5 X10*3/uL (0.1-1.2); Monocytes Percent Auto 8.3 % (2-11); Neutrophils Absolute Auto 4.5 x10*3/uL (2.0-8.3); Neutrophils Percent Auto 68.2 % (45-73); Platelet Count 242 X10*3/uL (160-400); Red Cell Distribution Width 13.6 % (11.0-16.0); White Blood Count 6.5 X10*3/uL (4.8-10.8)
[2024-05-05 06:49] LABS: Anion Gap 12 (12-20); Blood Urea Nitrogen 29 mg/dL (9-16); Calcium 8.7 mg/dL (8.4-10.2); Carbon Dioxide 26 mmol/L (22-29); Chloride 105 mmol/L (96-108); Creatinine Clr Calc Pharmacy 49.8; Estimated Glomerular Filt Rate 31; Glucose Random 101 mg/dL (60-115); Potassium 3.7 mmol/L (3.3-5.1); Sodium 139 mmol/L (135-145)
[2024-05-05 07:27] LABS: Glucose, Whole Blood 103 mg/dL (60-115)
[2024-05-05 07:29] VITALS: BP 186/92; PULSE 97; RESP 20; TEMP 36.7; O2SAT 97
[2024-05-05 08:41] LABS: Appearance Urine Clear; Color Urine Yellow; Glucose Urine UA 100 mg/dL (Negative); Leukocyte Esterase Urine Negative (Negative); Nitrite Urine Negative (Negative); PH 7.5 (5.0-9.0); Specific Gravity - Urine 1.015 (1.005-1.025); UMIC TRIGGER UACC YES; Urine Blood Negative (Negative); Urine Ketones Negative (Negative); Urine Protein 300 (3+) mg/dL (Neg-Trace)
--- NOTE | 2024-05-05 08:41 | PM.DS ---
DS: Providers Provider Date of Service: 05/05/24 Date of admission: 05/04/24 03:39 Date of discharge: 05/05/24 Primary care physician: Félix Carlton MD Consults: 05/04/24 03:41 Consult to Neurology Routine Consulting Provider: [facility] Reason for consultation: TIA vs CVA Has provider been notified: No 05/04/24 17:39 Consult to Wound Care Routine Reason for consultation: DM foot ulcer noted to bottom of foot, healed wound noted to top, toe amps DS: Diagnosis Discharge Diagnosis (1) TIA (transient ischemic attack): Status: Acute DS: Summary Hospital Course Hospital Course: HP as per admitting provider. 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 He reports that he is not sure why he is here but is alert and oriented x3. His had reported that he was scheduled for colonoscopy and endoscopy soon and has stopped taking his Eliquis for the past week, just started Lovenox injections last night as well as terazosin for urinary retention. Shortly after taking these medications he developed altered mental status and dysarthria. When his found him he was pale, altered and unable to answer questions or follow commands. When EMS arrived his BP was 160/70 and after arriving to the ED the patient's mental status returned to baseline. He denies any chest pain, shortness of breath, cough, fever, chills or headache. No change in vision, weakness, confusion, dizziness. He denies any urinary symptoms including frequency, urgency or dysuria. TIA. presented with dysarthria and confusion which has resolved. head CT with bilateral infarctions including both frontal lobes and both basal ganglia regions, no intracranial hemorrhage CTA head and neck normal, UA negative and chest x-ray negative for pneumonia, COVID/flu/RSV negative, lipid panel elevated, ASA 325, atorvastatin 80 mg daily, neurology consult> rec EEG, possibly seizure from previous stroke. PT>STR but patient declined and would like to go home, discussed with his mother as well. He is willing yo have home services IRA[place] on CKD 3. initially Cr 2.0. HTN. continue home meds T2 DM sliding scale insulin. continue home medications Paroxysmal AFib. no longer on Eliquis, recently started Lovenox Time Attestation Discharge Coordination Time (in mins): 42 Quality: Safe Use of Opioids Does Pt have an Active Cancer Diagnosis on the Problem List?: No Quality: Stroke Does the patient have a stroke diagnosis?: No Physical Exam Vital Signs: Vital Signs: Last Vital Signs Temp 98.0 F 05/05/24 07:29 Pulse 97 05/05/24 07:29 Resp 20 05/05/24 07:29 BP 186/92 H 05/05/24 07:29 Pulse Ox 97 05/05/24 07:29 O2 Del Method Room Air 05/05/24 07:29 BMI result Body Mass Index 31.2 Appearing in no acute distress head is normocephalic atraumatic eyes pupils are PERRLA sclera is anicteric mouth throat mucous membranes are intact and moist neck is supple no lymphadenopathy, no JVD noted lung sounds are clear to auscultation heart regular rate rhythm, clear S1, S2 positive bowel sounds, abdomen is soft, nontender neuro patient is alert x3, no focal deficits DS: Data Data Completed and Pending Completed studies during hospitalization [Text1]: Procedures Excision of Right Foot Tendon, Open Approach (04/26/21) Excision of Stomach, Pylorus, Via Natural or Artificial Opening Endoscopic, Diagnostic (08/25/23) Fluoroscopy of Aorta and Bilateral Lower Extremity Arteries (04/26/21) Insertion of Infusion Device into Superior Vena Cava, Percutaneous Approach (04/26/21) Labs on day of discharge: Laboratory Results - last 24 hr 05/04/24 05/04/24 05/04/24 08:19 12:29 17:55 WBC 7.1 RBC 4.37 L Hgb 12.1 L Hct 37.4 L MCV 85.6 MCH 27.7 MCHC 32.4 RDW 13.7 Plt Count 241 MPV 9.9 Immature Gran % (Auto) 0.3 Neut % (Auto) 76.9 H Lymph % (Auto) 17.7 L [place] % (Auto) 4.1 Eos % (Auto) 0.4 Baso % (Auto) 0.6 Lymph # (Auto) 1.3 [place] # (Auto) 0.3 Eos # (Auto) 0.0 Baso # (Auto) 0.0 Abs Immat Gran (auto) 0.02 Absolute Neuts (auto) 5.5 Absolute Nucleated RBC 0.000 Nucleated RBC % (auto) 0.0 Sodium 138 Potassium 4.0 Chloride 103 Carbon Dioxide 24 Anion Gap 15 BUN 32 H Creatinine 2.23 H Estim Creat Clear Calc 48.5 Estimated GFR 30 POC Glucose 150 H 173 H Random Glucose 154 H Calcium 8.6 05/04/24 05/05/24 05/05/24 20:00 05:58 07:12 WBC 6.5 RBC 4.40 L Hgb 12.1 L Hct 37.1 L MCV 84.3 MCH 27.5 MCHC 32.6 RDW 13.6 Plt Count 242 MPV 9.7 Immature Gran % (Auto) 0.2 Neut % (Auto) 68.2 Lymph % (Auto) 19.7 L [place] % (Auto) 8.3 Eos % (Auto) 2.8 Baso % (Auto) 0.8 Lymph # (Auto) 1.3 [place] # (Auto) 0.5 Eos # (Auto) 0.2 Baso # (Auto) 0.1 Abs Immat Gran (auto) 0.01 Absolute Neuts (auto) 4.5 Absolute Nucleated RBC 0.000 Nucleated RBC % (auto) 0.0 Sodium 139 Potassium 3.7 Chloride 105 Carbon Dioxide 26 Anion Gap 12 BUN 29 H Creatinine 2.17 H Estim Creat Clear Calc 49.8 Estimated GFR 31 POC Glucose 146 H 103 Random Glucose 101 Calcium 8.7 Discharge Plan Discharge Anticipated Discharge Date/Time: 05/05/24 08:34 Patient Disposition: Home Health Service Discharge Diagnosis: TIA Referrals: Félix Carlton MD [Primary Care Provider] - 1 Week Discharge Medications: Continued (DME) FreeStyle Lite Strips Strip See Rx Instructions .ROUTE .MEDSUPPLY Qty: 100 12RF Rx Instructions: As directed 3 times a day (DME) FreeStyle Dedra 14 Day Sensor Kit See Rx Instructions .Route Qty: 1 5RF Rx Instructions: As directed (DME) FreeStyle Dedra 3 [place] Misc See Rx Instructions .ROUTE .MEDSUPPLY Qty: 1 1RF Rx Instructions: As directed (DME) FreeStyle Dedra 3 Sensor Device See Rx Instructions .ROUTE .MEDSUPPLY Qty: 1 1RF Rx Instructions: As directed magnesium oxide 400 mg (241.3 mg magnesium) tablet 800 mg PO BIDPC Qty: 120 5RF Eliquis 5 mg tablet 5 mg PO BID 30 Days Qty: 60 1RF omeprazole 20 mg capsule,delayed release(DR/EC) 20 mg PO BID Qty: 90 0RF metformin 1,000 mg tablet 1,000 mg PO BID Qty: 60 1RF terazosin 5 mg capsule 5 mg PO BEDTIME 30 Days Qty: 30 1RF gabapentin 100 mg capsule 100 mg PO BID PRN (Reason: neuropathic pain) ammonium lactate 12 % lotion 1 appl topical DAILY PRN (Reason: Rash) enoxaparin [Lovenox] 100 mg/mL syringe 100 mg subcut BID@[id number],9605 metoprolol succinate 25 mg tablet extended release 24 hr 25 mg PO TID hydralazine 25 mg tablet 25 mg PO BID Qty: 180 3RF (DME) blood pressure test kit-large Kit See Rx Instructions .Route Qty: 1 0RF Rx Instructions: As directed Discharge Orders: Discharge Order (Routine); Ordered 05/05/24 Ordered By: Yuliana Sorenson Diet: Advance to usual diet Activity on Discharge: As tolerated Stand Alone Forms: Patient Portal Discharge page Print Language: Irish Care Plan Goals: Home physical therapy Follow up with primary care provider regarding results of EEG Health Concerns: TIA Plan of Treatment: Follow up with primary care provider as needed Take all medications as prescribed Assessment: See discharge summary
[2024-05-05 08:44] LABS: Bacteria Urine None Seen (None Seen); Hyaline Casts Urine 0-2 /LPF (0-2); RBC Urine 0-2 /HPF (0-2); Squamous Epithelial Cell Urine 0-2 /HPF (0-2); WBC Urine 0-5 /HPF (0-5)
--- NOTE | 2024-05-05 08:51 | P.F2F_ITS ---
Service Date Service Date: 05/05/24 Encounter Date of encounter: 05/05/24 Reasons for Services Signs and symptoms assessed: TIA Reason for intermediate: CV/CP assess and/or care Reason for physical therapy: home safety and mobility and gait/transfer training Homebound: Leaving the home is medically contraindicated at this time without the asist of a device and/or another person due th the listed conditions above and below. Reason homebound: unsteady gait / fall risk and weakness related to hospital stay Certification: Based on the above findings, I certify that this patient is confined to the home and needs intermittent intermediate care, physical therapy and/or speech therapy, or continues to need occupational therapy. The patient is under my care, and I have initiated the establishment of the plan of care. The patient will be followed by a physician who will periodically review the plan of care. Time Spent With Patient Time: Total time managing care of this patient today ____ minutes.
[2024-05-05] MEDS: Metoprolol Succinate ER 25 MG TAB.ER.24H PO ×2 (09:03→16:21)
[2024-05-05] MEDS: hydrALAZINE HCl 25 MG TABLET PO (09:03)
[2024-05-05] MEDS: Magnesium Oxide 400 MG TABLET 800 MG PO (09:03)
[2024-05-05] MEDS: Omeprazole 20 MG CAPSULE.DR PO (09:03)
[2024-05-05] MEDS: Atorvastatin Calcium 80 MG TABLET PO (09:03)
[2024-05-05] MEDS: Aspirin Enteric Coated 81 MG TABLET.DR PO (09:03)
[2024-05-05 11:55] LABS: Glucose, Whole Blood 150 mg/dL (60-115)
[2024-05-05 12:00] VITALS: BP 170/84; PULSE 88; RESP 20; TEMP 36.8; O2SAT 97
--- NOTE | 2024-05-05 14:48 | HO.WOUND ---
Wound Consult: Initial 59yr old?male admitted [place] [facility] [place] - See progress notes and H&P for detailed history.? Wound consult placed for Right Plantar wound.? Patient agreeable to assessment and photo documentation.? Patient reports he has had the callus for years he denies pain to the site. The right lateral foot is noted for healed surgical site - no injury noted. The plantar area is noted for a dry callused area with a central brown area - this was probed no open tissue noted - no wound or concern for wound under callus at this time. No induraiton no fluctuance and no erytthema noted. Cleansed with betadine while at bedside - no topical interventions are needed at this time. Right Lateral Foot - intact tissue Right Plantar foot - dry intact stable callus noted - no topical interventions needed at this time.
--- NOTE | 2024-05-05 15:46 | MHC.CM.PN ---
Pt has been medically cleared for DC, he will go home via family transport and have home care services from [facility].
[2024-05-05 16:13] VITALS: BP 179/92; PULSE 78
[2024-05-05 18:28] LABS: Amphetamine Screen Urine Not Detected (Not Detect); Barbiturates, Urine Not Detected (Not Detect); Benzodiazepines Screen Urine Not Detected (Not Detect); Buprenorphine Scr Not Detected (Not Detect); Cannabinoid Screen Urine Not Detected (Not Detect); Cocaine Screen Urine Not Detected (Not Detect); Fentanyl, urine Not Detected (Not Detect); Methadone Screen, Urine Not Detected (Not Detect); Opiate Screen Urine Not Detected (Not Detect); Oxycodone Screen Urine Not Detected (Not Detect); Phencyclidine Screen Urine Not Detected (Not Detect)
== END 2024-05-05 16:33 | disposition home health service (06) | DRG 69 ==
LOC: HO.ED 03:13 → HO.EDOVER 03:48 → HO.IMC 16:19
PROVIDERS: Admitting Provider Physician Assistant; Emergency Provider Emergency Medicine Emergency Medical Services; PCP Internal Medicine; Visit Provider Nurse Practitioner Acute Care
DX: G45.9 Transient cerebral ischemic attack, unspecified (principal); R47.1 Dysarthria and anarthria; I12.9 Hypertensive chronic kidney disease with stage 1 through stage 4 chronic kidney disease, or unspecified chronic kidney disease; N18.30 Chronic kidney disease, stage 3 unspecified; E11.22 Type 2 diabetes mellitus with diabetic chronic kidney disease; I48.0 Paroxysmal atrial fibrillation; I69.341 Monoplegia of lower limb following cerebral infarction affecting right dominant side; Z20.822 Contact with and (suspected) exposure to COVID-19; Z87.891 Personal history of nicotine dependence; Z79.01 Long term (current) use of anticoagulants; Z79.84 Long term (current) use of oral hypoglycemic drugs; Z79.899 Other long term (current) drug therapy
CPT/HCPCS: 0241U; 36415; 70450; 70496; 70498; 71045; 80048; 80061; 80076; 80307; 81001; 82947; 84484; 85025; 85610; 85730; 95816; 97162; 97166; 97530; 99285; J1650; Q9967

== ENCOUNTER → 2024-05-04 01:09 | Outpatient (BNV) | payer MEDICARE, MEDICAID, SELFPAY | PROVIDERS: Emergency Provider Emergency Medicine Emergency Medical Services; Visit Provider Radiology Neuroradiology | DX: I65.23 Occlusion and stenosis of bilateral carotid arteries (principal); G00-G99 Diseases of the nervous system; J98.11 Atelectasis | CPT/HCPCS: 70450; 70496; 70498; 71045 ==

== ENCOUNTER → 2024-05-04 03:39 | Outpatient (BNV) | payer MEDICARE, MEDICAID, SELFPAY | PROVIDERS: Admitting Provider Physician Assistant; Emergency Provider Emergency Medicine Emergency Medical Services; PCP Internal Medicine; Visit Provider Nurse Practitioner Acute Care | DX: G45.9 Transient cerebral ischemic attack, unspecified (principal) | CPT/HCPCS: 99239; 99499; G0180 ==

== ENCOUNTER → 2024-05-04 03:39 | Outpatient (BNV) | payer MEDICARE, MEDICAID, SELFPAY | PROVIDERS: Admitting Provider Physician Assistant; Emergency Provider Emergency Medicine Emergency Medical Services; PCP Internal Medicine; Visit Provider Psychiatry & Neurology Neurology | DX: G45.9 Transient cerebral ischemic attack, unspecified (principal) | CPT/HCPCS: 99222 ==

== ENCOUNTER 2024-05-08 15:03 | Outpatient (AMB) | payer MEDICARE, MEDICAID, SELFPAY ==
--- OUTSIDE RECORDS SUMMARY | 2024-05-08 15:06 | XMS_ITS ---
Author Organization [facility] Address [address] [place] [phone] Care Team Providers Care Mumps Developer Name Role Phone Brandt MACHADO, [place] Primary Care Provider Ion Cristina Jr, Stephon Davison MEDICATIONS Medication SIG (Take, Route, Frequency, Duration) Notes Start Date End Date Status Metoprolol Succinate ER 25 MG Oral for 90 Unknown Lovenox 300 MG/3ML as directed Injection Active Eliquis 5 MG TAKE 1 TABLET BY EMMETT TH TWICE A DAY Oral for 30 Unknown metFORMIN HCl 1000 MG Oral for 30 Unknown Tamsulosin HCl 0.4 MG TAKE 1 CAPSULE BY MOUTH EVERYDAY AT BEDTIME Oral for 90 Unknown hydrALAZINE HCl 25 MG Oral for 90 Unknown Magnesium Oxide 400 MG TAKE 2 TABLETS BY MOUTH 2 TIMES A DAY AFTER MEALS Oral for 30 Unknown Ammonium Lactate 12 % APPLY TOPICALLY IF NEEDED FOR DRY SKIN. External for 30 Unknown Omeprazole 20 MG Oral for 45 U nknown Encounters Encounter Location Date Provider Diagnosis [facility] [address] [place] [phone] 05/07/2024 Stephon Cristina Jr PLAN OF TREATMENT Next Appt Details Provider Name:Stephon aleman Jr, 05/15/2024 11:30:00 AM, [address] [place] [address] , [place], [place], [phone],
--- OUTSIDE RECORDS SUMMARY | 2024-05-08 15:06 | XMS_ITS ---
Author Organization [facility] Address [address] [facility] [address] [place] [phone] Care Team Providers Care Core Drill Operator Helper Name Role Phone Brandt MACHADO, [place] Primary Care Provider Unakarma Cristina Jr, Stephon Davison [phone] REASON FOR VISIT Eliquis Encounters Encounter Location Date Provider Diagnosis [facility] [address] [facility] [address] [place] [phone] 04/17/2024 Stephon Cristina Jr PLAN OF TREATMENT Next Appt Details Provider Name:Stephon aleman Jr, 05/15/2024 11:30:00 AM, [address] [place] [address] , [place], [place], [phone],
--- OUTSIDE RECORDS SUMMARY | 2024-05-08 15:06 | XMS_ITS ---
Author Organization [facility] Address [address] [facility] [address] [place] [phone] Care Team Providers Care Telegraphic Typewriter Operator Chief Name Role Phone Brandt MACHADO, [place] Primary Care Provider Unakarma Cristina Jr, Stephon Davison REASON FOR VISIT New RX Encounters Encounter Location Date Provider Diagnosis [facility] [address] [facility] [address] [place] [phone] 05/06/2024 Stephon Cristina Jr PLAN OF TREATMENT Next Appt Details Provider Name:Stephon aleman Jr, 05/15/2024 11:30:00 AM, [address] [place] [address] , [place], [place], [phone],
--- OUTSIDE RECORDS SUMMARY | 2024-05-08 15:07 | XMS_ITS | Clinical Summary ---
Author Organization [facility] Address [address] [place] [address] Phone Care Team Providers Care Licensed Psychiatric Technician Name Role Phone Félix Carlton MD Primary Care Provider [phone] Allergies No known active allergies Medications ammonium lactate (AmLactin) 12 % lotion Apply topically if needed for dry skin. 400 g 2 4 02/27/20 Active Encounters Date Type Department Care Team Description 03/17/2024 11:00 AM EST Office Visit Orthopedic Surgery [place] [address] [phone] Remington Linda DPM History of amputation of lesser toe of right foot (CMS/HCC) (Primary Dx); Controlled type 2 diabetes mellitus with diabetic polyneuropathy, without long-term current use of insulin (CMS/HCC); Callus; Midfoot ulceration, right, with fat layer exposed (CMS/HCC) 03/02/2024 Telephone Orthopedic Surgery [facility] [address] [phone] Lyubov Sahni 02/27/2024 3:00 PM EST Consult Orthopedic Surgery [facility] [address] [phone] Remington Linda DPM Controlled type 2 diabetes [...] PM EDT Office Visit Orthopedic [facility] [place] [address] [phone] Remington Linda DPM [address] [address] Health Maintenance Due Date Last Done Comments [...] Insurance MEDICARE MEDICAID - [place] Care Teams Licensed Psychiatric Technician Relationship Specialty Start Date End Date Félix Carlton MD [address] [place] [address] [address] OLIVIA Pruitt PCP - General 01/09/24
--- OUTSIDE RECORDS SUMMARY | 2024-05-08 15:07 | XMS_ITS | Patient Health Record ---
Author Organization [facility] Address [address] [place] [address] Care Team Providers Care Reefer Engineer Name Role Phone Brandt MACHADO, [place] Primary Care Provider Stephon Montano Jr ALLERGIES Allergen (clinical drug ingredient) Drug/Non Drug Allergy documented on EMR Reaction Allergy Type Onset Date Status tamsulosin Tamsulosin Unknown Drug Allergy Activ e RESULTS Component Value Reference Range Notes Pathology Reviewed date:09/02/2023 08:46:13 AM Interpretation: Performing Lab:[facility], [address] [place] [phone] Notes/Report: REASON FOR REFERRAL No Information MEDICATIONS Medication SIG (Take, Route, Frequency, Duration) Notes Start Date End Date Status hydrALAZINE HCl 25 MG Oral for 90 Unknown Magnesium Oxide 400 MG TAKE 2 TABLETS BY MOUTH 2 TIMES A DAY AFTER MEALS Oral for 30 Unknown Metoprolol Succinate ER 25 MG Oral for 90 Unknown Ammonium Lactate 12 % APPLY TOPICALLY IF NEEDED FOR DRY SKIN. External for 30 Unknown Omeprazole 20 MG Oral for 45 U nknown Lovenox 300 MG/3ML as directed Injection Active Eliquis 5 MG TAKE 1 TABLET BY TWICE A DAY Oral for 30 Unknown metFORMIN HCl 1000 MG Oral for 30 Unknown Tamsulosin HCl 0.4 MG TAKE 1 CAPSULE BY MOUTH EVERYDAY AT BEDTIME Oral for 90 Unknown IMMUNIZATIONS Vaccine Route Administration Date Status Comme nts Influenza Unknown 01/14/2024 Administered SOCIAL HISTORY Tobacco Use: Social History Observation Description Date Details (start date - stop date) Former Smoker NA - NA Sex Assigned At : Social History Observation Description Sex Assigned At Unknown Tobacco Use/Smoking Question Answer Notes Patient is a former smoker Alcohol Screen Question Answer Notes Did you have a drink containing alcohol in the p ast year? No Points 0 Interpretation Negative PROBLEMS Problem Type ICD Code Onset Dates Problem Status W/U Status Risk SNOMED Code Notes Problem Erosive esophagitis (K22.10) Active confirmed 11028851 Problem Dysphagia (R13.10) Active confirmed Dysphagia (36048364) Problem Colon cancer screening (Z12.11) Active confirmed 614367974 VITAL SIGNS Temperature 96.3 degrees Fahrenheit 04/16/2024 Blood pressure diastolic 00 mm Hg 04/16/2024 Height 6 ft 3 in in 04/16/2024 Blood pressure systolic 000 mm Hg 04/16/2024 Weight 253 lbs 04/16/2024 BMI 31.62 kg/m2 04/16/2024 Encounters Encounter Location Date Provider Diagnosis [facility] [place] [address] [place] [phone] 08/27/2023 Stephon Cristina Jr [facility] [place] [address], [place] [phone] 11/29/2023 Stephon Cristina Jr [facility] [address] [place] [phone] 04/16/2024 Stephon Cristina Jr Erosive esophagitis K22.10 and Colon cancer screening Z12.11 [facility] [address] [place] [phone] 09/02/2023 Stephon Cristina Jr Erosive esophagitis K22.10 [facility] [address] [place] [phone] 09/02/2023 Stephon Cristina Jr [facility] [address] [place] [phone] 10/16/2023 Stephon Cristina Jr [facility] [address] [place] [phone] 10/30/2023 Stephon Cristina Jr [facility] [address] [place] [phone] 04/17/2024 Stephon Cristina Jr [facility] [address] [place] [phone] 05/06/2024 Stephon Cristina Jr [facility] [address] [place] [address] 05/07/2024 Stephon Cristina Jr ASSESSMENTS Encounter Date Diagnosis Assessment Notes Treatment Notes Treatment Clinical Notes 04/16/2024 Colon cancer screening (ICD-10 - Z12.11) Colonoscopy material was printed 04/16/2024 Erosive esophagitis (ICD-10 - K22.10) 09/02/2023 Erosive esophagitis (ICD-10 - K22.10) PLAN OF TREATMENT Future Test Test Name Order Date UPPER GI ENDOSCOPY 09/02/2023 UPPER GI ENDOSCOPY 04/16/2024 COLONOSCOPY 04/16/2024 Next Appt Details Provider Name:Stephon aleman Jr, 05/15/2024 11:30:00 AM, [address] [facility] , [place], [place], [phone], Insurance Providers Payer Name Payer Address Payer Phone Subscriber Number Group Number Insured Name Patient Relationship to Insured Coverage Start Date Coverage End Date MEDICARE OF [place] [address] [place] [id number] NOELLE MCKEE Self - patient is the insured MEDICAID OF [facility] [address] [place] [address] [id number] NOELLE MCKEE Self - patient is the insured MEDICAL (GENERAL) HISTORY Medical History History ICD Code Diabetes mellitus type 2 CVA 09/15 Hypertension Atrial fibrillation Elevated body mass index Diabetic foot ulcer Peripheral arterial disease Urinary retention with incomplete bladde r emptying EGD 09/15, erosive esophagitis Surgical History Surgery Date(Month/Year) Hospitalization History Reason Date(Month/Year) CVA 09/15
--- NOTE | 2024-05-08 15:08 | A.OFFPC_ITS ---
Vital Signs 05/08/24 15:10 Height 6 ft 3 in Weight 247 lb 4 oz BMI 30.9 BP 118/64 Blood Pressure Location Lt brachial Position Sitting Pulse 92 Pulse Source Pulse Oximeter Temp 97.1 F Temp Source Temporal Artery Scan Pulse Oximetry (%) 97 Oxygen Delivery Method Room Air Intake Visit Reasons: [place] [facility] / Seizure Intake Note: Patient is here for hospital discharge and TCM follow up. Patient was [place] [facility] [place]. Windows Deployment Technician Required: No Drapery Cutter Machine: Present (Mother and Friend) Accompanied by: Mother Allergies No Known Allergies [No Known Allergies*] Allergy (Verified 05/10/24 21:32) Medication List - Last Reconciled 05/10/24 by SARABJIT Gates ammonium lactate 12% 1 appl topical DAILY PRN apixaban (Eliquis) 5 mg PO BID 30 days blood pressure test kit-large As directed blood sugar diagnostic (FreeStyle Lite Strips) As directed 3 times a day blood-glucose meter,continuous (FreeStyle Dedra 3 [place]) As directed blood-glucose sensor (FreeStyle Dedra 3 Sensor device) As directed enoxaparin (Lovenox) 100 mg subcut BID@1015,2215 flash glucose sensor (FreeStyle Dedra 14 Day Sensor kit) As directed gabapentin 100 mg PO BID PRN hydralazine 25 mg PO BID magnesium oxide 800 mg (2 x 400 mg (241.3 mg magnesium)) PO BIDPC metformin 1,000 mg PO BID metoprolol succinate ER 25 mg PO TID omeprazole 20 mg PO BID terazosin 5 mg PO BEDTIME 30 days Tobacco use date assessed: 05/08/24 Dental Screening Dental Screen Date: 05/08/24 Did you have a dental visit in the last 12 months?: No Did you have a dental problem in the last 6 months where you did not have access to dental care?: No Was dental information given to patient?: No HPI [facility] 05/05 TIA / Seizure HPI Details The patient is a 59-year-old male with past medical history significant for CKD 3, hypertension, type 2 diabetes, paroxysmal AFib on Eliquis, 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 Patient is presenting post hospital discharge follow up appointment The patient is presenting today accompanied by his mother and cousin Mother reports that the patient had an EEG in the hospital and she would like to know the results Per documentation there was a recommendation for EEG no results in chart at this time Mother reports that she started the patient Lovenox while still giving him his Eliquis for more than a week now, which is different from what was reported at the hospital The patient mother reports that on the medication is said Lovenox to started 10 days prior to colonoscopy and Eliquis to stop 3 days prior to colonoscopy Clarified recommendations with Dr. Carlton, who reports that the patient was supposed to start the Lovenox injection on the day that they stopped the Eliquis, which is 3 days prior to the patient colonoscopy and to start back the Eliquis on the tonight of the colonoscopy and to discontinue the Lovenox the day after the colonoscopy These recommendations was written down for the patient's mother who needed this information repeated couple of times The patient mother reports that she thought that the patient had a droop couple of days ago while at home but she waited it out because she knew that the visiting nurse was coming Reports that the droop went away and the patient had no issues Discussed with the patien's mother that if she ever suspect signs of stroke she has to bring the patient to the hospital [facility] because there is no way to treat his stroke in the outpatient setting Patient mother reports that he is back to his baseline The patient denies shortness of breath, chest pain, headaches, heart palpitation Denies signs of bleeding, denies numbness or tingling, denies dizziness, denies new weakness or visual changes Patient mother reports that the patient never complaints, so it is hard to tell if he is okay or not Reports that the patient needs constant supervision Reports that the patient is only allowed 15 hours a week of supervision Given the patient high risk of injury due to his poor insight, the patient will benefit from at least 30 hours a week or more Per chart review: The patient presented to the ED due to a change in mental status and dysarthria. He reports that he is not sure why he is here but is alert and oriented x3. His had reported that he was scheduled for colonoscopy and endoscopy soon and has stopped taking his Eliquis for the past week, just started Lovenox injections last night as well as terazosin for urinary retention. Shortly after taking these medications he developed altered mental status and dysarthria. When his found him he was pale, altered and unable to answer questions or follow commands. When EMS arrived his BP was 160/70 and after arriving to the ED the patient's mental status returned to baseline. He denies any chest pain, shortness of breath, cough, fever, chills or headache. No change in vision, weakness, confusion, dizziness. He denies any urinary symptoms including frequency, urgency or dysuria. Head CT with bilateral infarctions including both frontal lobes and both basal ganglia regions, no intracranial hemorrhage CTA head and neck normal, UA negative and chest x-ray negative for pneumonia, COVID/flu/RSV negative, lipid panel elevated, ASA 325, atorvastatin 80 mg daily, neurology consult> rec EEG, possibly seizure from previous stroke. PT>STR but patient declined and would like to go home, discussed with his mother as well. He is willing yo have home services TCM TCM Information Date of Discharge 05/05/24 Discharged From [facility] Medical History Chronic kidney disease (CKD), stage III (moderate) Overweight (BMI 25.0-29.9) Obesity (BMI 30-39.9) Benign essential hypertension Diabetes mellitus Type II diabetes mellitus Uncontrolled diabetes mellitus Paroxysmal atrial fibrillation Diabetic foot infection COVID-19 Surgical History No pertinent past surgical history Family History Mother No problems noted. Father No problems noted. Social History Household Members: None Household Members Other:: lives in apartment above mom, 2 family home Housing: House Do you presently have visiting nurse or other home services: No Unable to assess alcohol history related to: Refusing to respond Alcohol intake: former Patient Tobacco Use Status: Former Tobacco user Tobacco use type: Cigarette Cigarette Packs Per Day: 0.5 Cigarettes Per Day: 10.0 e-Cigarette/Vaping Use: Never Used Second Hand Smoke Exposure: Yes Advance Directives Date on File: 09/17/23 service: No Current occupational status: unemployed Cognitive needs: Yes (walker) Hearing needs: No Vision needs: Yes (Glasses) Questionnaire PHQ-9 Over the last 2 weeks, how often have you been bothered by any of the following problems? 1. Little interest or pleasure in doing things: not at all 2. Feeling down, depressed, or hopeless: not at all 3. Trouble falling or staying asleep, or sleeping too much: not at all 4. Feeling tired or having little energy: not at all 5. Poor appetite or overeating: not at all 6. Feeling bad about yourself - or that you are a failure or have let yourself or your family down: not at all 7. Trouble concentrating on things, such as reading the newspaper or watching television: not at all 8. Moving or speaking so slowly that other people could have noticed. Or the opposite - being so fidgety or restless that you have been moving around a lot more than usual: not at all 9. Thoughts that you would be better off or of hurting yourself in some way: not at all Total score: 0 Depression Screening Interpretation: Negative Depression Screening Done: Yes 68901 - PHQ-9 Billing: Yes Source: Developed by Drs. Kareem Bartlett, Kait Hickman, Reji Green and colleagues, with an educational michael from [employer]. Thrive Questionnaire Date Thrive assessed: 05/08/24 I am a: Patient What is your living situation today?: I have a steady place to live Within the past 12 months, did the food you bought not last and you didn't have the money to get more?: Never true Within the past 12 months, did you worry whether your food would run out before you got money to buy more?: Never true Do you have trouble paying for medicines?: No Do you have trouble getting transportation to medical appointments?: No Do you have trouble paying your heating and electricity bill?: No Do you have trouble taking care of your child, family member or friend?: No Do you have trouble with day-to-day activities such as bathing, preparing meals, shopping, managing finances, etc.?: No Are you currently unemployed and looking for a job?: No Are you interested in more education?: No Please select the resources that you would like help with: None Currently or been in a relationship where the following occur: No concerns reported THRIVE Score: 0 AUDIT C Alcohol Use Questionnaire (AUDIT-C) 1. How often do you have a drink containing alcohol?: Never Total Score: 0 ROQUE-7 AMB Questionnaire ROQUE-7 Date ROQUE - 7 assessed: 05/08/24 Feeling nervous, anxious, or on edge: 0 = Not at all Not being able to stop or control worryin = Not at all Worrying too much about different things: 0 = Not at all Trouble relaxin = Not at all Being so restless that it is hard to sit still: 0 = Not at all Becoming easily annoyed or irritable: 0 = Not at all Feeling afraid as if something awful might happen: 0 = Not at all Total ROQUE-7 score (0-4 normal; 5-9 mild; 10-14 moderate; 15-21 severe): 0 Source: Developed by Drs. Kareem Bartlett, Kait Hickman, Reji Green and colleagues, with an educational michael from [employer]. ROQUE-7 Assessment Billing ROQUE-7 Assessment Tool: ROQUE-7 Assessment 47703 Review of Systems Const Details: Denies chills, Denies fatigue, Denies fever(s), Denies headache(s) and Denies weakness HEENT Denies change in vision, Denies dizziness, Denies headache(s), Denies hearing loss, Denies nasal congestion, Denies sinus pain, Denies sinus pressure and Den ies sore throat Card Denies chest pain, Denies lightheadedness, Denies dyspnea and Denies other (palpitations) Resp Denies cough, Denies dyspnea and Denies wheezing GI Denies abdominal pain, Denies melena, Denies hematochezia, Denies change in bowel habits, Denies dyspepsia and Denies nausea Denies hematuria and Denies dysuria Musc Denies abnormal gait, Denies myalgias, Denies arthralgias, Denies numbness and Denies tingling Skin/Breast Denies rash, Denies unusual bruising and Denies wounds Neuro Denies abnormal gait, Denies dizziness, Denies headache(s), Denies memory loss, Denies numbness, Denies Sensory deficit (Neuro), Denies tingling and + right lower extremity residual weakness Psych Denies anxiety, Denies depression and Denies memory loss Endo Denies cold intolerance, Denies fatigue, Denies heat intolerance, Denies polydipsia and Denies polyuria Paolo/Lymph Denies easy bleeding and Denies easy bruising Aller/Immun Denies wheezing Physical exam (Primary Care) Vital Signs: Last Vital Signs Temp 97.1 F 05/08/24 15:10 Pulse 92 05/08/24 15:10 BP 118/64 05/08/24 15:10 Pulse Ox 97 05/08/24 15:10 Oxygen Delivery Method Room Air 05/08/24 15:10 BMI result Body Mass Index 30.9 Tobacco/Smoking Status: Tobacco use Status Tobacco use date assessed 05/08/24 05/08/24 15:21 Patient Tobacco Use Status Former Tobacco user 05/08/24 15:08 Tobacco use type Cigarette 05/08/24 15:08 e-Cigarette/Vaping Use Never Used 05/08/24 15:08 PHQ-9: PHQ-9 Score PHQ-9: Total score 0 05/11/24 21:03 Depression Screening Interpretation: Negative Thrive Assessment: Date of Thrive Assessment Date Thrive assessed 05/08/24 05/08/24 15:21 Currently or been in a relationship where the following occur: No concerns reported Const Other: General: no acute distress, well developed, alert and awake Nutritional Appearance: well nourished Orientation/consciousness: patient oriented x3 HENMT Head: Yes normocephalic and Yes atraumatic Ears: hearing grossly normal bilaterally and TM's normal bilaterally General nose exam: Normal external nose present and Normal nares present Mouth: Normal oral and palatal mucosa present and moist mucous membranes Eyes Pupils: Equal, round and reactive pupils present and Pupil accommodation reflex normal EOM: EOMs intact bilaterally Neck Neck: Yes normal visual inspection, Yes no lymphadenopathy and Yes trachea midline Thyroid: Thyroid normal Lymphatic: no lymphadenopathy noted Chest Chest palpation & inspection: normal inspection of the chest Resp Effort & Inspection: normal respiratory effort Auscultation: clear to auscultation bilaterally Cardio Rate: regular rate Rhythm: regular rhythm Heart sounds: S1 normal heart sound present, S2 normal heart sound present, no gallops, no murmurs and no rubs GI Palpation (GI): No Abdominal aortic bruit present, Soft to palpation, nontender, No hepatosplenomegaly present and No Rebound tenderness present Auscultation: normal bowel sounds General: Yes no CVA tenderness Back/Spine/Pelvis Back: no CVA tenderness Cervical Spine: cervical ROM normal and No Cervical spine tenderness Thoracic/Lumbar Spine: No lumbar tenderness Skin General: warm and dry. Normal skin color. Normal skin turgor Lesions: no lesions Rashes: no rashes Trauma: no lacerations or abrasions Wounds: no wounds Nails: normal Neuro General: patient oriented x3, gait normal and CN's II-XI intact bilaterally Cranial nerves: Yes Equal, round and reactive pupils present Cognition (Neuro): normal cognition Gait exam (Neuro): Normal gait present Motor exam (neuro): Right lower extremity weakness Extrem General: Yes normal to inspection, No edema and No calf tenderness Psych Appearance: grossly normal Affect: normal affect Attitude: cooperative Thought process: Normal thought process present Coding Level of Care Code Est Pt Level 4 (20848) Diagnoses Hospital discharge follow-up Z09 TIA (transient ischemic attack) G45.9 Cerebrovascular accident (CVA) due to embolism of cerebral artery I63.40 CVA mechanism: embolism Precerebral and cerebral artery: unspecified cerebral artery Paroxysmal atrial fibrillation I48.0 Benign essential hypertension I10 Type 2 diabetes mellitus with foot ulcer, without long-term current use of insulin E11.621; L97.509 Diabetes mellitus complication detail: with foot ulcer Diabetes mellitus complication status: with skin complications 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 Neuro consulted for question of TIA vs seizure, EEG recommended. The patient mother's stated that an EEG was done in the hospital. No results noted in EMR. Discussed with the patient mother in detail about bridging Lovenox/Eliquis for the patient upcoming colonoscopy Information was also written down step by step on paper and given to mother Given the patient high risk of injury due to poor insight, the patient will benefit from at least 30 hours a week or more (2) TIA (transient ischemic attack): Code(s): G45.9 - Transient cerebral ischemic attack, unspecified Category: Medical Plan: Altered mental status and dysarthria resolved by the time the patient got to the emergency room Neuro consulted and thought that the patient might had a seizure and recommended EEG Discussed with the patient mother that she has to bring the patient to the hospital whenever there is an indication of a stroke (3) Stroke: Code(s): I63.9 - Cerebral infarction, unspecified Category: Medical Qualifiers: CVA mechanism: embolism Precerebral and cerebral artery: unspecified cerebral artery Qualified Code(s): I63.40 - Cerebral infarction due to embolism of unspecified cerebral artery Plan: No acute findings on images and the patient is back to baseline (4) Paroxysmal atrial fibrillation: Code(s): I48.0 - Paroxysmal atrial fibrillation Category: Medical Plan: History of AFib, on Eliquis. Requiring bridging Lovenox for scheduled colonoscopy, due to the patient high risk of stroke Patient mother noticed altered mental status and dysarthria that resolved by the time the patient got to the emergency room No acute finding was noted on imaging (5) Benign essential hypertension: Code(s): I10 - Essential (primary) hypertension Category: Medical Plan: Reinforced low-sodium diet Continue hydralazine 25 mg b.i.d. and metoprolol succinate ER 25 mg t.i.d. 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 Follow up with Endocrine as scheduled Plan To return as scheduled in December 2024 for his annual physical examination
[2024-05-08 15:10] VITALS: BP 118/64; PULSE 92; TEMP 36.2; O2SAT 97; BMI 30.9
== END 2024-05-08 16:11 | disposition home or self-care (01) ==
PROVIDERS: PCP Internal Medicine
DX: Z09 Encounter for follow-up examination after completed treatment for conditions other than malignant neoplasm (principal); G45.9 Transient cerebral ischemic attack, unspecified; I63.40 Cerebral infarction due to embolism of unspecified cerebral artery; I48.0 Paroxysmal atrial fibrillation; I10 Essential (primary) hypertension; E11.621 Type 2 diabetes mellitus with foot ulcer; L97.509 Non-pressure chronic ulcer of other part of unspecified foot with unspecified severity

== ENCOUNTER → 2024-05-08 15:03 | Outpatient (BNVA) | payer MEDICARE, MEDICAID, SELFPAY | PROVIDERS: PCP Internal Medicine | DX: Z09 Encounter for follow-up examination after completed treatment for conditions other than malignant neoplasm (principal); G45.9 Transient cerebral ischemic attack, unspecified; I63.40 Cerebral infarction due to embolism of unspecified cerebral artery; I48.0 Paroxysmal atrial fibrillation; I10 Essential (primary) hypertension; E11.621 Type 2 diabetes mellitus with foot ulcer; L97.509 Non-pressure chronic ulcer of other part of unspecified foot with unspecified severity | CPT/HCPCS: 96127; 99212 ==

== ENCOUNTER 2024-06-01 18:17 | Emergency (ER) | payer MEDICARE, MEDICAID, SELFPAY ==
[2024-06-01 18:23] VITALS: BP 160/102; PULSE 76; O2SAT 97
[2024-06-01 18:53] VITALS: BP 203/91; PULSE 83; RESP 20; TEMP 37.1; O2SAT 96; BMI 30.6
[2024-06-01] MEDS: LORazepam 2 MG/ML VIAL 1 MG IVPUSH (20:05)
[2024-06-01 20:06] LABS: MANUAL DIFF FLAG NO
[2024-06-01 20:27] LABS: Alanine Aminotransferase 12 U/L (0-40); Albumin Level 3.2 g/dL (3.5-5.0); Alkaline Phosphatase 73 U/L (39-117); Anion Gap 16 (12-20); Aspartate Amino Transferase 32 U/L (5-37); Bilirubin Total 0.3 mg/dL (0.0-1.0); Blood Urea Nitrogen 31 mg/dL (9-16); Calcium 9.2 mg/dL (8.4-10.2); Carbon Dioxide 23 mmol/L (22-29); Chloride 106 mmol/L (96-108); Creatinine Clr Calc Pharmacy 58.8; Estimated Glomerular Filt Rate 38; Glucose Random 167 mg/dL (60-115); Lipase 9 U/L (8-78); Magnesium 1.1 mg/dL (1.6-2.6); Potassium 4.8 mmol/L (3.3-5.1); Sodium 140 mmol/L (135-145); Total Protein 8.3 g/dL (6.5-8.0)
[2024-06-01] MEDS: Magnesium Oxide 400 MG TABLET PO (20:42)
[2024-06-01] MEDS: Magnesium Sulfate/H2O 2 GM/50 ML PIGGYBACK IV (20:42)
[2024-06-01 20:58] LABS: Basophils Absolute Auto 0.1 X10*3/uL (0.0-0.2); Basophils Percent Auto 0.5 % (0-2); Eosinophils Percent Auto 0.2 % (0-4); Hematocrit 36.6 % (42.0-52.0); Hemoglobin 12.2 g/dl (14.0-18.0); Imm Gran Abs Auto 0.03 X10*3/uL (0.00-0.03); Imm Gran Pct Auto 0.3 % (0.0-0.4); Lymphocytes Absolute Auto 0.6 X10*3/uL (1.2-4.9); Lymphocytes Percent Auto 6.5 % (20-40); Mean Corpuscular HGB Conc 33.3 g/dl (31.0-36.0); Mean Corpuscular Hemoglobin 27.7 pg (27.0-33.0); Mean Platelet Volume 9.3 fL (9.4-12.4); Monocytes Absolute Auto 0.3 X10*3/uL (0.1-1.2); Monocytes Percent Auto 2.7 % (2-11); Neutrophils Absolute Auto 8.6 x10*3/uL (2.0-8.3); Neutrophils Percent Auto 89.8 % (45-73); Platelet Count 322 X10*3/uL (160-400); Red Blood Count 4.41 X10*6/uL (4.60-5.80); Red Cell Distribution Width 13.3 % (11.0-16.0); White Blood Count 9.5 X10*3/uL (4.8-10.8)
[2024-06-01 21:08] LABS: Influenza A PCR NEGATIVE (Negative); Influenza B PCR NEGATIVE (Negative); Resp Syncy Virus RNA Qual PCR NEGATIVE (Negative); SARS COV2 PCR INHOUSE NEGATIVE (Negative)
[2024-06-01 22:10] VITALS: BP 184/94; PULSE 88; RESP 17; TEMP 36.5; O2SAT 96
--- NOTE | 2024-06-01 23:37 | ED.GENADULT ---
HPI - General Adult General Chief complaint: General Medical Stated complaint: Stomach pain Time Seen by Provider: 06/01/24 19:30 Source: patient Limitations: no limitations History of Present Illness ED Provider: Yamilet Nascimento PA-C HPI narrative: 59-year-old male with a history of morbid obesity, paroxysmal AFib on apixaban, hyperlipidemia, diabetes, hypertension, GERD, peripheral arterial disease, prior CVA without residual deficits, chronic kidney disease presents with nausea. Patient states he ate [employer] last night, he woke this morning with nausea. Denies active vomiting, diarrhea or fever. Patient denies abdominal pain. Related Data Home Medications ?Medication ?Instructions ?Recorded ?Confirmed gabapentin 100 mg capsule 100 mg PO BID PRN neuropathic pain 08/25/23 05/10/24 ammonium lactate 12 % lotion 1 appl topical DAILY PRN Rash 05/04/24 05/10/24 enoxaparin 100 mg/mL subcutaneous 100 mg subcut BID@1015,2215 05/04/24 05/10/24 syringe (Lovenox) metoprolol succinate 25 mg 25 mg PO TID 05/04/24 05/10/24 tablet,extended release 24 hr Previous Rx's ?Medication ?Instructions ?Recorded blood sugar diagnostic (FreeStyle #100 ea 07/16/22 Lite Strips) flash glucose sensor (FreeStyle #1 ea 07/17/23 Dedra 14 Day Sensor kit) blood-glucose meter,continuous #1 ea 11/29/23 (FreeStyle Dedra 3 [place]) blood-glucose sensor (FreeStyle #1 ea 11/29/23 Dedra 3 Sensor device) blood pressure test kit-large #1 ea 12/25/23 hydralazine 25 mg tablet 25 mg PO BID #180 tabs 12/25/23 magnesium oxide 400 mg (241.3 mg 800 mg (2 x 400 mg (241.3 mg 03/10/24 magnesium) tablet magnesium)) PO BIDPC #120 tabs apixaban 5 mg tablet (Eliquis) 5 mg PO BID 30 days #60 tabs 03/26/24 metformin 1,000 mg tablet 1,000 mg PO BID #60 tabs 04/28/24 terazosin 5 mg capsule 5 mg PO BEDTIME 30 days #30 caps 04/29/24 omeprazole 20 mg capsule,delayed 20 mg PO BID #90 caps 05/14/24 release atorvastatin 40 mg tablet 40 mg PO BEDTIME #30 tabs 05/19/24 ondansetron HCl 4 mg tablet 4 mg PO Q8H PRN nausea and 06/01/24 vomiting #10 tabs Allergies Allergy/AdvReac Type Severity Reaction Status Date / Time No Known Allergies Allergy Verified 06/01/24 18:54 [No Known Allergies*] Review of Systems Review of Systems: Yes all other systems are reviewed and are negative Constitutional: Constitutional: Denies fatigue and Denies fever(s) Cardiovascular: Cardiovascular: Denies chest pain and Denies dyspnea Respiratory: Respiratory: Denies dyspnea Gastrointestinal: Gastrointestinal: Denies abdominal pain, Denies diarrhea, Reports nausea and Denies vomiting Endocrine: Endocrine: Denies fatigue PMFSH Past Medical History Attestation statement: The following information was validated with the patient. Medical History Chronic kidney disease (CKD), stage III (moderate) Overweight (BMI 25.0-29.9) Obesity (BMI 30-39.9) Benign essential hypertension Diabetes mellitus Type II diabetes mellitus Uncontrolled diabetes mellitus Paroxysmal atrial fibrillation Diabetic foot infection COVID-19 Surgical History No pertinent past surgical history Family History Family History Mother No problems noted. Father No problems noted. Social History Social History Household Members: None Household Members Other:: lives in apartment above mom, 2 family home Housing: House Do you presently have visiting nurse or other home services: No Unable to assess alcohol history related to: Refusing to respond Alcohol intake: former Patient Tobacco Use Status: Former Tobacco user Tobacco use type: Cigarette Cigarette Packs Per Day: 0.5 Cigarettes Per Day: 10.0 e-Cigarette/Vaping Use: Never Used Second Hand Smoke Exposure: Yes Advance Directives: Yes Advance Directives on File: Yes Advance Directives Date on File: 09/17/23 Do you have a plan to hurt others: No Plan service: No Current occupational status: unemployed Cognitive needs: Yes (walker) Hearing needs: No Vision needs: Yes (Glasses) Physical Exam ED Vital Signs: Vital Signs - 24 hr 06/01/24 18:53 06/01/24 22:10 06/02/24 00:00 Temperature 98.8 F 97.7 F 97.4 F Pulse Rate 83 88 86 Respiratory Rate 20 17 16 Blood Pressure 203/91 H 184/94 H 172/89 H Pulse Oximetry 96 96 95 Oxygen Delivery Method Room Air Room Air Room Air BMI result Body Mass Index 30.6 Const Other: Alert Orientation/consciousness: patient oriented x3 Resp Effort & Inspection: normal respiratory effort Cardio Other: Normal peripheral perfusion GI Other: Abdomen is soft, nondistended, obese, nontender no guarding Skin Other: Warm dry no rash Neuro General: patient oriented x3, gait normal, no focal motor deficits and CN's II-XI intact bilaterally Psych Other: Cooperative, flat affect Course Reevaluation(s) Reevaluation #1: Patient has not had progression of symptoms, he has been sleeping in the hallway, no active vomiting no diarrhea Medications Administered Discontinued Medications Generic Name Dose Route Start Last Admin Trade Name Freq PRN Reason Stop Dose Admin Magnesium Sulfate 2 gm in 50 mls @ 25 mls/hr 06/01/24 20:28 06/01/24 22:11 Magnesium Sulfate/H2o IV 06/01/24 22:27 Infused ONCE ONE Infusion Lorazepam 1 mg 06/01/24 19:45 06/01/24 20:05 Lorazepam 2 Mg/Ml Vial IVPUSH 06/01/24 19:46 1 mg ONCE ONE Administration Magnesium Oxide 400 mg 06/01/24 20:28 06/01/24 20:42 Magnesium Oxide 400 Mg Tablet PO 06/01/24 20:29 400 mg ONCE ONE Administration Medical Decision Making Medical Decision Making [facility] Narrative: 59-year-old male with a history of morbid obesity, paroxysmal AFib on apixaban, hyperlipidemia, diabetes, hypertension, GERD, peripheral arterial disease, prior CVA without residual deficits, chronic kidney disease presents with nausea. Patient states he ate [employer] last night, he woke this morning with nausea. Denies active vomiting, diarrhea or fever. Patient denies abdominal pain. Problem: Vascular disease History: Per patient I have considered the following differential diagnoses: Food poisoning, viral syndrome, acute intra-abdominal pathology, gastroenteritis Plan: Patient's symptoms are minimal, he has no active vomiting no diarrhea he is afebrile. Screening labs obtained, including a viral panel from triage. His magnesium is low, we will replenish. Give Ativan for nausea and his subtle discomfort. Imaging not warranted, he has no abdominal pain, he has a benign abdominal exam. I have independently reviewed the following tests: Labs: No leukocytosis, not anemic, magnesium low, no other electrolyte abnormality, viral panel negative Lab Data 06/01/24 20:03 06/01/24 20:03 Labs: Lab Results 06/01/24 06/01/24 Range/Units 20:00 20:03 WBC 9.5 (4.8-10.8) X10*3/uL RBC 4.41 L (4.60-5.80) X10*6/uL Hgb 12.2 L (14.0-18.0) g/dl Hct 36.6 L (42.0-52.0) % MCV 83.0 (80.0-98.0) fL MCH 27.7 (27.0-33.0) pg MCHC 33.3 (31.0-36.0) g/dl RDW 13.3 (11.0-16.0) % Plt Count 322 D (160-400) X10*3/uL MPV 9.3 L (9.4-12.4) fL Immature Gran % (Auto) 0.3 (0.0-0.4) % Neut % (Auto) 89.8 H (45-73) % Lymph % (Auto) 6.5 L (20-40) % [place] % (Auto) 2.7 (2-11) % Eos % (Auto) 0.2 (0-4) % Baso % (Auto) 0.5 (0-2) % Lymph # (Auto) 0.6 L (1.2-4.9) X10*3/uL [place] # (Auto) 0.3 (0.1-1.2) X10*3/uL Eos # (Auto) 0.0 (0.0-0.4) X10*3/uL Baso # (Auto) 0.1 (0.0-0.2) X10*3/uL Abs Immat Gran (auto) 0.03 (0.00-0.03) X10*3/uL Absolute Neuts (auto) 8.6 H (2.0-8.3) x10*3/uL Absolute Nucleated RBC 0.000 (0.0-0.012) X10*3/uL Nucleated RBC % (auto) 0.0 (0.0-0.2) /100WBC Sodium 140 (135-145) mmol/L Potassium 4.8 D (3.3-5.1) mmol/L Chloride 106 (96-108) mmol/L Carbon Dioxide 23 (22-29) mmol/L Anion Gap 16 (12-20) BUN 31 H (9-16) mg/dL Creatinine 1.82 H (0.5-1.4) mg/dL Estim Creat Clear Calc 58.8 Estimated GFR 38 Random Glucose 167 H (60-115) mg/dL Calcium 9.2 (8.4-10.2) mg/dL Magnesium 1.1 L* (1.6-2.6) mg/dL Total Bilirubin 0.3 (0.0-1.0) mg/dL AST 32 (5-37) U/L ALT 12 (0-40) U/L Alkaline Phosphatase 73 (39-117) U/L Total Protein 8.3 H (6.5-8.0) g/dL Albumin 3.2 L (3.5-5.0) g/dL Lipase 9 (8-78) U/L Influenza Type A (PCR) NEGATIVE (Negative) Influenza Type B (PCR) NEGATIVE (Negative) RSV RNA Qual (PCR) NEGATIVE (Negative) SARS-CoV-2 RNA (RT-PCR) NEGATIVE (Negative) Discharge Plan Discharge Clinical Impression: Nausea & vomiting Patient Disposition: Home, Self-Care Instructions: Acute Nausea and Vomiting (ED) Additional Instructions: All of your screening labs were normal, perhaps the food that you ingested overnight did not agree with you. You have not had any active gastrointestinal symptoms since you arrived you have been here for several hours. Uses Zofran as needed for nausea follow up with your primary care provider as needed. Prescriptions: New ondansetron HCl 4 mg tablet 4 mg PO Q8H PRN (Reason: nausea and vomiting) Qty: 10 0RF No Action (DME) FreeStyle Lite Strips Strip See Rx Instructions .ROUTE .MEDSUPPLY Qty: 100 12RF Rx Instructions: As directed 3 times a day (DME) FreeStyle Dedra 14 Day Sensor Kit See Rx Instructions .Route Qty: 1 5RF Rx Instructions: As directed (DME) FreeStyle Dedra 3 [place] Misc See Rx Instructions .ROUTE .MEDSUPPLY Qty: 1 1RF Rx Instructions: As directed (DME) FreeStyle Dedra 3 Sensor Device See Rx Instructions .ROUTE .MEDSUPPLY Qty: 1 1RF Rx Instructions: As directed magnesium oxide 400 mg (241.3 mg magnesium) tablet 800 mg PO BIDPC Qty: 120 5RF Eliquis 5 mg tablet 5 mg PO BID 30 Days Qty: 60 1RF metformin 1,000 mg tablet 1,000 mg PO BID Qty: 60 1RF terazosin 5 mg capsule 5 mg PO BEDTIME 30 Days Qty: 30 1RF omeprazole 20 mg capsule,delayed release(DR/EC) 20 mg PO BID Qty: 90 0RF gabapentin 100 mg capsule 100 mg PO BID PRN (Reason: neuropathic pain) ammonium lactate 12 % lotion 1 appl topical DAILY PRN (Reason: Rash) enoxaparin [Lovenox] 100 mg/mL syringe 100 mg subcut BID@1015,2215 metoprolol succinate 25 mg tablet extended release 24 hr 25 mg PO TID atorvastatin 40 mg tablet 40 mg PO BEDTIME Qty: 30 0RF hydralazine 25 mg tablet 25 mg PO BID Qty: 180 3RF (DME) blood pressure test kit-large Kit See Rx Instructions .Route Qty: 1 0RF Rx Instructions: As directed Print Language: [place] Islander
[2024-06-02] VITALS: BP 172/89; PULSE 86; RESP 16; TEMP 36.3; O2SAT 95
--- NOTE | 2024-06-02 00:12 | PC.NURSE ---
call placed to mother for d/c, left a message
[2024-06-02 02:00] VITALS: RESP 20
[2024-06-02 04:00] VITALS: RESP 16
[2024-06-02 06:00] VITALS: RESP 20
--- NOTE | 2024-06-02 06:25 | PC.NURSE ---
called mother again, no answer
--- NOTE | 2024-06-02 07:47 | PC.NURSE ---
Mother attempted to be called for a fourth time this AM with no anwser. Hosptial van discharge arranged. patient AAXO3 speaking clear full sentences. patient ambulates with steady gait to triage with walker for ride home from van. Voucher given to patient and discharge instructions
[2024-06-02 07:48] VITALS: BP 137/88; PULSE 70; RESP 18; TEMP 36.9; O2SAT 96
== END 2024-06-02 07:49 | disposition home or self-care (01) ==
PROVIDERS: Physician Assistant Medical; Emergency Provider Emergency Medicine
DX: R11.2 Nausea with vomiting, unspecified (principal); Z03.818 Encounter for observation for suspected exposure to other biological agents ruled out; E11.9 Type 2 diabetes mellitus without complications; I10 Essential (primary) hypertension; I48.0 Paroxysmal atrial fibrillation; Z87.891 Personal history of nicotine dependence; Z79.01 Long term (current) use of anticoagulants; Z79.84 Long term (current) use of oral hypoglycemic drugs
CPT/HCPCS: 0241U; 36415; 80053; 83690; 83735; 85025; 96365; 96375; 99284; J2060; J3475

== ENCOUNTER 2024-07-13 08:21 | Inpatient (IN) | payer MEDICARE, MEDICAID, SELFPAY ==
[2024-07-13] VITALS (8 sets, daily range): BP systolic 161–198; BP diastolic 72–106; PULSE 85–92; RESP 14–24; TEMP 36.3–36.8; O2SAT 92–98; BMI 32.2; BMI 34.1
--- NOTE | ~2024-07-13 | CT_ITS ---
CLINICAL HISTORY: CVA; unequal pupils CT head without contrast Comparison: MR/SR - MR HEAD/BRAIN WO CON - 07/13/24 12:[address]/SR - CT ANGIO HEAD NECK STROKE - 07/13/24 08:[address]/SR - CT HEAD FOR STROKE - 07/13/24 08:33 EDT Findings: Head CT is unchanged compared to the patient's examination from 1 day prior. No acute hydrocephalus. No intracranial hemorrhage. Specifically, no hemorrhage is seen in association with the tiny right thalamic infarct seen on MRI study from 1 day prior. There is low-attenuation within the right basal ganglia at this site, similar to that seen on the patient's study from 1 day prior. Low attenuation within the deep white matter is unchanged. Multiple small lacunar infarcts within the bilateral basal ganglia are unchanged. No midline shift or mass effect. No sulcal effacement. IMPRESSION: Unchanged head CT. Specifically, the area of restricted diffusion within the right basal ganglia on MRI study from 1 day prior is not well depicted as a CT abnormality. This document has been electronically signed by: Tito Hannah MD on 07/14/2024 06:54:31
--- NOTE | ~2024-07-13 | XR_ITS ---
CLINICAL HISTORY: cough 1 view chest x-ray Comparison: CR - XR CHEST 1V - 05/04/24 02:13 EST Findings: Lungs are well inflated. Cardiac silhouette is within normal limits. No focal areas of consolidation. No pleural effusion or pneumothorax. IMPRESSION: 1. No acute findings. This document has been electronically signed by: Tito Hannah MD on 07/13/2024 09:25:21
--- NOTE | ~2024-07-13 | CT_ITS ---
CLINICAL HISTORY: slurred speech CT angiography head and neck with contrast. MIP postprocessing. Comparison: CT/SR - CT ANGIO HEAD NECK STROKE - 05/04/24 01:35 EST Findings: Head: No ICA or M1 occlusion. Vascular calcifications including carotid siphons with mild stenosis. Anterior communicating artery is patent. Proximal ACAs and proximal MCAs are otherwise unremarkable. The basilar artery is patent. Proximal shoe stamper are patent. No proximal intracranial arterial aneurysm. Mild flattening of the nasal bones appears old/chronic. Metal and lucencies associated with multiple imaged remaining teeth. Lucencies of the mixed and upper alveolar ridge appear old and likely accentuated by absence of the teeth. Neck: Calcified and noncalcified plaque including bilateral carotid bulbs and bilateral carotid bifurcations. No significant stenosis of either internal carotid artery by NASCET criteria. Vertebral arteries are essentially equal caliber. Mild-moderate stenosis of the origin of the right vertebral and mild stenosis of the origin of the left vertebral with calcifications. Additional calcified and noncalcified plaque involving the imaged aorta and its branches. With mild stenosis of the proximal left subclavian artery. Three-vessel aortic arch anatomy is noted. Mild subcutaneous edema. Mild scarring of the imaged lung apices. Degenerative changes include disc osteophyte complexes and facet arthropathy of the imaged cervical spine. IMPRESSION: 1. No large vessel occlusion or hemodynamically significant stenosis identified. 2. Multifocal atherosclerosis. This document has been electronically signed by: Tito Hannah MD on 07/13/2024 09:31:09
--- NOTE | ~2024-07-13 | MR_ITS ---
CLINICAL HISTORY: cva MR brain without contrast. COMPARISON: CT angiogram head and neck dated 07/13/24 at 08:[address] head dated 07/13/24 at 08:33 EDT FINDINGS: Small focus of diffusion restriction present within the right thalamus. There is associated increased T2/FLAIR signal. Multiple additional chronic lacunar infarcts present within the basal ganglia bilaterally. Chronic lacunar infarct present within the lucia on the left. No evidence of mass, mass effect or midline shift. No intracranial hemorrhage or abnormal extra-axial fluid collection. The ventricles are proportional with the degree of mild to moderate cerebral volume loss without evidence of hydrocephalus. Basilar cisterns are patent. Patchy hyperintense T2/FLAIR areas within the periventricular white matter and monge radiata compatible with [id number] white matter small vessel disease. Cerebellar hemispheres and cerebellar vermis are normal. Fourth ventricle is normal. Intracranial flow voids are patent. Mild mucosal thickening present within the ethmoid sinuses. Mastoid air cells are clear. IMPRESSION: 1. Small diffusion restricting right thalamic infarct. There is associated increased T2/FLAIR signal. 2. [id number] white-matter small-vessel disease with global cerebral volume loss. This document has been electronically signed by: Ramón Coughlin MD on 07/13/2024 13:44:44
--- NOTE | ~2024-07-13 | CT_ITS ---
CLINICAL HISTORY: slurred speech CT head without contrast Comparison: CT/SR - CT ANGIO HEAD NECK STROKE - 05/04/24 01:[address] - CT ANGIO HEAD NECK STROKE - 05/04/24 01:[address]/SR - CT HEAD FOR STROKE - 05/04/24 01:09 EST Findings: Generalized cerebral and cerebellar atrophy as seen on the patient's prior study. Although unchanged compared to prior examination, this is greater than expected for a patient of this age. The size and shape of the ventricular system is appropriate for this degree of atrophy. Multiple bilateral basal ganglia lacunar infarcts are identified. [id number] areas of low-attenuation are seen within the deep white matter. No new areas of abnormal attenuation are identified within the brain parenchyma. No midline shift or mass effect. No intracranial hemorrhage. No calvarial fractures. Mild mucosal thickening within the right maxillary sinus. IMPRESSION: 1. No acute intracranial findings. Specifically, no hemorrhage or acute territorial infarct. 2. Atrophy greater than expected for age with multiple small chronic lacunar infarcts within the basal ganglia. This document has been electronically signed by: Tito Hannah MD on 07/13/2024 09:04:22
[2024-07-13 08:31] LABS: Glucose, Whole Blood 98 mg/dL (60-115)
--- NOTE | 2024-07-13 08:31 | ED.NEUROSD ---
HPI - Neuro Symptoms/Deficit General Chief Complaint: Stroke Stated Complaint: ?STROKE,WOKE UP W/NUMB/TINGLING HAND PER EMS Time Seen by Provider: 07/13/24 08:27 Source: EMS Mode of arrival: EMS History of Present Illness HPI Narrative: This is a 59 years old male presented to the emergency room via ambulance with a chief complaint of difficult speech numbness in the hand he woke up with these symptoms the call 911 he has a history of atrial fibrillation is anticoagulated with a apixaban he has a history of diabetes, morbid obesity prior stroke with no deficit Onset (ago): unknown Timing confirmed by: spouse Location: speech History of same: Yes Severity: moderate Relieving factors: none Exacerbating factors: none Context: sudden onset On Anticoagulants: Yes Associated symptoms: denies other symptoms Related Data Home Medications ?Medication ?Instructions ?Recorded ?Confirmed ammonium lactate 12 % lotion 1 appl topical DAILY PRN Rash 05/04/24 05/10/24 omeprazole 20 mg capsule,delayed 20 mg PO BID@0630,1630 07/13/24 release Previous Rx's ?Medication ?Instructions ?Recorded blood sugar diagnostic (FreeStyle #100 ea 07/16/22 Lite Strips) flash glucose sensor (FreeStyle #1 ea 07/17/23 Dedra 14 Day Sensor kit) blood-glucose sensor (FreeStyle #1 ea 11/29/23 Dedra 3 Sensor device) blood-glucose,float nurse,cont #1 ea 11/29/23 (FreeStyle Dedra 3 [place]) blood pressure test kit-large #1 ea 12/25/23 hydralazine 25 mg tablet 25 mg PO BID #180 tabs 12/25/23 magnesium oxide 400 mg (241.3 mg 800 mg (2 x 400 mg (241.3 mg 03/10/24 magnesium) tablet magnesium)) PO BIDPC #120 tabs apixaban 5 mg tablet (Eliquis) 5 mg PO BID 30 days #60 tabs 06/11/24 atorvastatin 40 mg tablet 40 mg PO BEDTIME #90 tabs 06/23/24 metformin 1,000 mg tablet 1,000 mg PO BID #60 tabs 06/26/24 metoprolol succinate 25 mg 25 mg PO TID #270 tabs 06/27/24 tablet,extended release 24 hr terazosin 5 mg capsule 5 mg PO BEDTIME 30 days #30 caps 06/29/24 Bed pads and the pins #1 ea 07/08/24 Toilet seat riser #1 ea 07/08/24 Walker with seat #1 ea 07/08/24 Allergies Allergy/AdvReac Type Severity Reaction Status Date / Time No Known Allergies Allergy Verified 07/13/24 08:52 [No Known Allergies*] Review of Systems Constitutional: Constitutional: Reports no additional constitutional complaints Gastrointestinal: Gastrointestinal: Reports no additional gastrointestinal complaints Neurologic: Reports as per [facility] Past Medical History Attestation statement: The following information was validated with the patient. Medical History Diabetic foot ulcer Stroke Chronic kidney disease (CKD), stage III (moderate) Overweight (BMI 25.0-29.9) Obesity (BMI 30-39.9) Benign essential hypertension Type II diabetes mellitus Paroxysmal atrial fibrillation Surgical History History of esophagogastroduodenoscopy (EGD) Family History Family History Mother No problems noted. Father No problems noted. Social History Social History Household Members: None Household Members Other:: lives in apartment above mom, 2 family home Housing: House Do you presently have visiting nurse or other home services: No Unable to assess alcohol history related to: Refusing to respond Alcohol intake: former Patient Tobacco Use Status: Former Tobacco user Tobacco use type: Cigarette Cigarette Packs Per Day: 0.5 Cigarettes Per Day: 10.0 Smoked in Last 30 Days: No e-Cigarette/Vaping Use: Never Used Second Hand Smoke Exposure: Yes Use of substances other than those prescribed or required for medical reasons: No Advance Directives: Yes Advance Directives on File: Yes Advance Directives Date on File: 09/17/23 service: No Current occupational status: unemployed Cognitive needs: Yes (walker) Hearing needs: No Vision needs: Yes (Glasses) Physical Exam Vital Signs: Vital Signs: Last Vital Signs Temp 98 F 07/13/24 08:51 Pulse 85 07/13/24 09:14 Resp 16 07/13/24 09:14 BP 161/75 H 07/13/24 09:14 Pulse Ox 94 07/13/24 09:14 O2 Del Method Room Air 07/13/24 09:14 BMI result Body Mass Index 32.2 Not acute distress awake alert Const: General: well developed HEENT: Head: Yes normal to inspection General nose exam: Normal external nose present Face and sinus: Yes normal facial exam Neck: Neck: Yes normal visual inspection Chest: Chest palpation & inspection: normal inspection of the chest Resp: Effort & Inspection: normal respiratory effort Auscultation: clear to auscultation bilaterally Cardio: Jugular venous distension: no JVD Rate: regular rate Rhythm: regular rhythm GI: Inspection: Yes normal to inspection Palpation (GI): Soft to palpation, not firm and nontender : General: Yes no CVA tenderness Back/Spine/Pelvis: Back: no CVA tenderness Skin: General skin exam: no rashes or lesions noted Rashes: no rashes Wounds: no wounds Neuro: Other: Patient has awake alert oriented times see speech is dysarthric stroke scale is about 2 Cranial nerves: Yes CN's II-XII intact bilaterally Course Reevaluation(s) Reevaluation #1: case d/w Dr Aguilar will see pt in ED Time: 09:37 Medications Administered Generic Name Dose Route Start Last Admin Trade Name Freq PRN Reason Stop Dose Admin Atorvastatin Calcium 80 mg 07/13/24 10:30 07/13/24 11:15 Atorvastatin Calcium 80 Mg Tablet PO Not Given DAILY MICHELLE Discontinued Medications Generic Name Dose Route Start Last Admin Trade Name Freq PRN Reason Stop Dose Admin Aspirin 81 mg 07/13/24 10:19 07/13/24 11:15 Aspirin Enteric Coated 81 Mg Tablet. PO 07/13/24 10:20 Not Given ONCE ONE Sodium Chloride 1,000 mls @ 999 mls/hr 07/13/24 09:15 07/13/24 09:19 Ns IVCONT 07/13/24 10:15 999 mls/hr .Q1H1M MICHELLE Administration Iohexol 100 ml 07/13/24 09:09 07/13/24 09:09 Iohexol 350 Mg/Ml 100 Ml Infus..Btl IV 07/13/24 09:10 85 ml ONCE ONE Administration Medical Decision Making Medical Decision Making MDM Narrative: Patient presented with slurred speech woke up stroke we are unable to administer thrombolysis because on apixaban we will do a CT CTA to rule out large vessel occlusion. At this time is stroke scale is about 3 Differential Diagnosis Differential Diagnoses: The differential diagnosis associated with the presentation includes Head bleed given anticoagulation/ischemic CVA Admission/Observation Consideration of admission/observation: Escalation of care including admission/observation considered Consult Healthcare Provider Management of the patient was discussed with: Vet Assistant Dr Aguilar Lab Data MDM Lab Attestation statement: I reviewed the patient's lab results. 07/13/24 09:13 07/13/24 09:13 Labs: Lab Results 07/13/24 07/13/24 Range/Units 08:25 09:13 WBC 7.3 (4.8-10.8) X10*3/uL RBC 4.13 L (4.60-5.80) X10*6/uL Hgb 11.3 L (14.0-18.0) g/dl Hct 34.9 L (42.0-52.0) % MCV 84.5 (80.0-98.0) fL MCH 27.4 (27.0-33.0) pg MCHC 32.4 (31.0-36.0) g/dl RDW 13.7 (11.0-16.0) % Plt Count 264 (160-400) X10*3/uL MPV 9.3 L (9.4-12.4) fL Immature Gran % (Auto) 0.3 (0.0-0.4) % Neut % (Auto) 76.0 H (45-73) % Lymph % (Auto) 14.7 L (20-40) % [place] % (Auto) 5.7 (2-11) % Eos % (Auto) 2.5 (0-4) % Baso % (Auto) 0.8 (0-2) % Lymph # (Auto) 1.1 L (1.2-4.9) X10*3/uL [place] # (Auto) 0.4 (0.1-1.2) X10*3/uL Eos # (Auto) 0.2 (0.0-0.4) X10*3/uL Baso # (Auto) 0.1 (0.0-0.2) X10*3/uL Abs Immat Gran (auto) 0.02 (0.00-0.03) X10*3/uL Absolute Neuts (auto) 5.6 (2.0-8.3) x10*3/uL Absolute Nucleated RBC 0.000 (0.0-0.012) X10*3/uL Nucleated RBC % (auto) 0.0 (0.0-0.2) /100WBC Sodium 141 (135-145) mmol/L Potassium 3.8 D (3.3-5.1) mmol/L Chloride 109 H (96-108) mmol/L Carbon Dioxide 25 (22-29) mmol/L Anion Gap 11 L (12-20) BUN 24 H (9-16) mg/dL Creatinine 1.73 H (0.5-1.4) mg/dL Estim Creat Clear Calc 58.2 Estimated GFR 41 POC Glucose 98 (60-115) mg/dL Random Glucose 109 (60-115) mg/dL Calcium 8.8 (8.4-10.2) mg/dL Total Bilirubin 0.3 (0.0-1.0) mg/dL AST 28 (5-37) U/L ALT 10 (0-40) U/L Alkaline Phosphatase 66 (39-117) U/L Troponin I High Sens 7.0 (<3.5-35.0) ng/L Total Protein 6.7 (6.5-8.0) g/dL Albumin 3.1 L (3.5-5.0) g/dL Triglycerides 147 (<150) mg/dL Cholesterol 134 (<200) mg/dL LDL Cholesterol, Calc 74 (<100) mg/dL HDL Cholesterol 31 L (>40) mg/dL Independent Interpretation I performed an independent interpretation of an: CT Scan Radiology Impression Discussion of test interpretation with radiology: I have reviewed the radiologist's reading. Independent Historian Clinical information obtained from an independent historian. History obtained from or confirmed by: EMS spoke with EMS External Record Review External record reviewed: Inpatient record Critical Care Time Critical Care Time Critical Care Time: Yes Total Critical Care Time: 60 Attestation: Taking care of the patient, speaking with the EMS, speaking with the radiologist, speaking with neurologist and hospitalist Discharge Plan Discharge Clinical Impression: Acute CVA (cerebrovascular accident) Patient Disposition: Admitted As Inpatient
--- NOTE | 2024-07-13 08:34 | ECG_ITS ---
Test Reason : CVA Blood Pressure : */* mmHG Vent. Rate : 86 BPM Atrial Rate : 86 BPM P-R Int : 158 ms QRS Dur : 74 ms QT Int : 368 ms P-R-T Axes : 12 32 9 degrees QTcB Int : 440 ms Normal sinus rhythm Nonspecific ST abnormality Borderline ECG When compared with ECG of 09-Sep-2023 08:44, Nonspecific T wave abnormality now evident in Inferior leads Referred By: Prem Hartman Electronically Signed By: SAL HERBERT
--- NOTE | 2024-07-13 08:44 | PC.NURSE ---
PT TRANSPORTED TO CT SCAN IMMEDIATELY ON ARRIVAL. #20 PLACED IN RAC. PT A&OX4, MAINTAINING HIS OWN SECRETIONS AT THIS TIME. ARRIVING FROM HOME, ON ELIQUIS FOR PRIOR CVA. WOKE AT 0730 WITH ABNORMAL GAIT, WEAKNESS PER EMS.
[2024-07-13] MEDS: iohexoL 350 MG/ML 100 ML INFUS..BTL IV (09:09)
[2024-07-13 09:18] LABS: MANUAL DIFF FLAG NO
[2024-07-13 09:19] LABS: Basophils Absolute Auto 0.1 X10*3/uL (0.0-0.2); Basophils Percent Auto 0.8 % (0-2); Eosinophils Absolute Auto 0.2 X10*3/uL (0.0-0.4); Eosinophils Percent Auto 2.5 % (0-4); Hematocrit 34.9 % (42.0-52.0); Hemoglobin 11.3 g/dl (14.0-18.0); Imm Gran Abs Auto 0.02 X10*3/uL (0.00-0.03); Imm Gran Pct Auto 0.3 % (0.0-0.4); Lymphocytes Absolute Auto 1.1 X10*3/uL (1.2-4.9); Lymphocytes Percent Auto 14.7 % (20-40); Mean Corpuscular HGB Conc 32.4 g/dl (31.0-36.0); Mean Corpuscular Hemoglobin 27.4 pg (27.0-33.0); Mean Corpuscular Volume 84.5 fL (80.0-98.0); Mean Platelet Volume 9.3 fL (9.4-12.4); Monocytes Absolute Auto 0.4 X10*3/uL (0.1-1.2); Monocytes Percent Auto 5.7 % (2-11); Neutrophils Absolute Auto 5.6 x10*3/uL (2.0-8.3); Platelet Count 264 X10*3/uL (160-400); Red Blood Count 4.13 X10*6/uL (4.60-5.80); Red Cell Distribution Width 13.7 % (11.0-16.0); White Blood Count 7.3 X10*3/uL (4.8-10.8)
[2024-07-13] MEDS: 0.9 % Sodium Chloride 1,000 ML 999 ML IVCONT (09:19)
[2024-07-13 09:36] LABS: Alanine Aminotransferase 10 U/L (0-40); Albumin Level 3.1 g/dL (3.5-5.0); Alkaline Phosphatase 66 U/L (39-117); Anion Gap 11 (12-20); Aspartate Amino Transferase 28 U/L (5-37); Bilirubin Total 0.3 mg/dL (0.0-1.0); Blood Urea Nitrogen 24 mg/dL (9-16); Calcium 8.8 mg/dL (8.4-10.2); Carbon Dioxide 25 mmol/L (22-29); Chloride 109 mmol/L (96-108); Creatinine Clr Calc Pharmacy 58.2; Estimated Glomerular Filt Rate 41; Glucose Random 109 mg/dL (60-115); Potassium 3.8 mmol/L (3.3-5.1); Sodium 141 mmol/L (135-145); Total Protein 6.7 g/dL (6.5-8.0)
--- NOTE | 2024-07-13 09:52 | P.CNNE_ITS ---
History of Present Illness Data of Consult Service Date: 07/13/24 Primary Care Provider: Félix Carlton MD HPI Reason for consult: Stroke 59 years old man with underlying history of paroxysmal atrial fibrillation on anticoagulation came to hospital with new onset of slurred speech. Was evaluated for acute stroke but could not be treated with TNK because of anticoagulation on board. CTA did not reveal any lesion amenable to treatment. I saw him in emergency room. There was no sign of headache nausea or vomiting. There was no seizure-like episode. Review of Systems 2 Review of Systems: No recent cold or flu-like illness or headache PMFSH Past Medical History Medical History Diabetic foot ulcer Stroke Chronic kidney disease (CKD), stage III (moderate) Overweight (BMI 25.0-29.9) Obesity (BMI 30-39.9) Benign essential hypertension Type II diabetes mellitus Paroxysmal atrial fibrillation Family History Family History Mother No problems noted. Father No problems noted. Surgical History Surgical History History of esophagogastroduodenoscopy (EGD) Social History Social History Household Members: None Household Members Other:: lives in apartment above mom, 2 family home Housing: House Do you presently have visiting nurse or other home services: No Unable to assess alcohol history related to: Refusing to respond Alcohol intake: former Patient Tobacco Use Status: Former Tobacco user Tobacco use type: Cigarette Cigarette Packs Per Day: 0.5 Cigarettes Per Day: 10.0 Smoked in Last 30 Days: No e-Cigarette/Vaping Use: Never Used Second Hand Smoke Exposure: Yes Use of substances other than those prescribed or required for medical reasons: No Advance Directives: Yes Advance Directives on File: Yes Advance Directives Date on File: 09/17/23 service: No Current occupational status: unemployed Cognitive needs: Yes (walker) Hearing needs: No Vision needs: Yes (Glasses) Meds Allergies Allergy/AdvReac Type Severity Reaction Status Date / Time No Known Allergies Allergy Verified 07/13/24 08:52 [No Known Allergies*] Active Medications: Current Medications Sodium Chloride (Ns) 1,000 mls @ 999 mls/hr IVCONT .Q1H1M MICHELLE Stop: 07/13/24 10:15 Last Admin: 07/13/24 09:19 Dose: 999 mls/hr Home Medications ?Medication ?Instructions ?Recorded ?Confirmed ?Last Taken ?Type gabapentin 100 mg capsule 100 mg PO BID PRN neuropathic pain 08/25/23 06/05/24 Unknown History ammonium lactate 12 % lotion 1 appl topical DAILY PRN Rash 05/04/24 05/10/24 Unknown History enoxaparin 100 mg/mL subcutaneous 100 mg subcut BID@1015,2215 05/04/24 06/05/24 05/03/24 22:15 History syringe (Lovenox) Physical Exam 2 Vital Signs: Vital Signs: Last Vital Signs Temp 98 F 07/13/24 08:51 Pulse 85 07/13/24 09:14 Resp 16 07/13/24 09:14 BP 161/75 H 07/13/24 09:14 Pulse Ox 94 07/13/24 09:14 O2 Del Method Room Air 07/13/24 09:14 BMI result Body Mass Index 32.2 Neuro: Other: He is alert and awake with normal spontaneity and fluency of speech. Speech itself is moderately slurred. Face is symmetrical. Tongue is midline. Pupils are equal round reactive to light. Extraocular muscles are intact. Visual bowman are full. There is mild left-sided drift. Deep tendon reflexes are absent with flexor plantars. Results Labs 07/13/24 09:13 07/13/24 09:13 Labs: Short CBC 07/13/24 Range/Units 09:13 WBC 7.3 (4.8-10.8) X10*3/uL Hgb 11.3 L (14.0-18.0) g/dl Hct 34.9 L (42.0-52.0) % Plt Count 264 (160-400) X10*3/uL BMP 07/13/24 09:13 Sodium 141 Potassium 3.8 D Chloride 109 H Carbon Dioxide 25 BUN 24 H Creatinine 1.73 H Calcium 8.8 Liver Function 07/13/24 Range/Units 09:13 Total Bilirubin 0.3 (0.0-1.0) mg/dL AST 28 (5-37) U/L ALT 10 (0-40) U/L Alkaline Phosphatase 66 (39-117) U/L Albumin 3.1 L (3.5-5.0) g/dL Head CT revealed moderately severe chronic microvascular ischemic changes including in brainstem. CTA did not reveal any vascular lesion. Assessment and Plan (1) Acute CVA (cerebrovascular accident): Status: Acute 59 years old man who probably has subcortical or brainstem atherothrombotic small ischemic infarct resulting in dysarthria and mild left-sided weakness. Aggressive stroke treatment could not be offered because of anticoagulation a lack of any large vessel disease. Mainstay of management is blood pressure control, statin, and addition of baby aspirin once or twice a week. PT OT and speech and swallowing consultations are recommended. Procedures Date of Service Date of Service: 07/13/24
--- NOTE | 2024-07-13 10:26 | P.HPHOSP_ITS ---
History of Present Illness Date of Service: 07/13/24 Attending physician on admission: Adriana Lim Chief Complaint: slurred speech weakness 59-year-old male with history of paroxysmal atrial fibrillation anticoagulated with Eliquis, uncontrolled noninsulin dependent type 2 diabetes, GERD, hypertension, hyperlipidemia presented to the ED earlier today for evaluation of slurred speech. He reports he woke up with these symptoms. Last known well time around 21:00 last night. His mother is at bedside reports that he also had unsteady gait last night when going to bed. The patient does also endorse left lower extremity weakness last night which he states has persisted. On arrival, was evaluated for acute stroke with CT of the head negative for any acute intracranial abnormality and CTA of the head/neck negative for any large vessel occlusion or hemodynamically significant stenosis. He is also anticoagulated with Eliquis and therefore not a candidate for TNK. He does have ongoing slurred speech and also reports dysphagia. Denies any paresthesias, confusion, vision changes, headache. No history of seizures. Has had several TIAs in the past but denies any sequela. Also has a papular rash along L T5 dermatome which mother states had bubbles that started about 6 days ago. Pt denies any pruritus or pain. No hx shingles. No drug use, cigarette smoking, or alcohol. Review of Systems 2 Review of Systems: Yes all other systems are reviewed and are negative [facility] Medical History Diabetic foot ulcer Stroke Chronic kidney disease (CKD), stage III (moderate) Overweight (BMI 25.0-29.9) Obesity (BMI 30-39.9) Benign essential hypertension Type II diabetes mellitus Paroxysmal atrial fibrillation Family History Mother No problems noted. Father No problems noted. Surgical History History of esophagogastroduodenoscopy (EGD) Social History Household Members: None Household Members Other:: lives in apartment above mom, 2 family home Housing: House Do you presently have visiting nurse or other home services: No Unable to assess alcohol history related to: Refusing to respond Alcohol intake: former Patient Tobacco Use Status: Former Tobacco user Tobacco use type: Cigarette Cigarette Packs Per Day: 0.5 Cigarettes Per Day: 10.0 Smoked in Last 30 Days: No e-Cigarette/Vaping Use: Never Used Second Hand Smoke Exposure: Yes Use of substances other than those prescribed or required for medical reasons: No Advance Directives: Yes Advance Directives on File: Yes Advance Directives Date on File: 09/17/23 service: No Current occupational status: unemployed Cognitive needs: Yes (walker) Hearing needs: No Vision needs: Yes (Glasses) Meds Allergies Allergy/AdvReac Type Severity Reaction Status Date / Time No Known Allergies Allergy Verified 07/13/24 08:52 [No Known Allergies*] Active Medications: Current Medications Acetaminophen (Acetaminophen 325 Mg Tablet) 650 mg PO Q6H PRN PRN Reason: Pain, Mild 1-3,fever,headache Aspirin (Aspirin Enteric Coated 81 Mg Tablet.Dr) 81 mg PO ONCE ONE Stop: 07/13/24 10:20 Atorvastatin Calcium (Atorvastatin Calcium 80 Mg Tablet) 80 mg PO DAILY MICHELLE Calcium Carbonate (Calcium Carbonate 750 Mg Tab.Chew) 750 mg PO Q4H PRN PRN Reason: Heartburn Enoxaparin Sodium (Enoxaparin Sodium 150 Mg/Ml Syringe) 135 mg SUBCUT Q12H MICHELLE Magnesium Hydroxide (Milk Of Magnesia 30 Ml Oral.Susp) 30 ml PO DAILY PRN PRN Reason: Constipation Melatonin (Melatonin 3 Mg Tablet) 6 mg PO BEDTIME PRN PRN Reason: Insomnia Sodium Chloride (0.9 % Sodium Chloride Flush 3 Ml Syringe) 3 ml IVFLUSH QSHIFT MICHELLE Triamcinolone Acetonide (Triamcinolone Acet 0.1 % Cream 15 Gm Tube) 1 appl TOPICAL BID MICHELLE; Protocol Home Medications ?Medication ?Instructions ?Recorded ?Confirmed ?Last Taken ?Type ammonium lactate 12 % lotion 1 appl topical DAILY PRN Rash 05/04/24 05/10/24 Unknown History omeprazole 20 mg capsule,delayed 20 mg PO BID@0630,1630 07/13/24 Unknown History release Physical Exam 2 Vital Signs and Narrative: Vital Signs: Last Vital Signs Temp 98 F 07/13/24 08:51 Pulse 85 07/13/24 09:14 Resp 16 07/13/24 09:14 BP 161/75 H 07/13/24 09:14 Pulse Ox 94 04/21/25 09:14 O2 Del Method Room Air 07/13/24 09:14 BMI result Body Mass Index 32.2 Constitutional - Awake and Alert, No apparent distress Eyes - PERRLA, EOMI Cardiovascular - S1S2, RRR, No edema Respiratory - Normal lung expansion, Normal respiratory effort, No respiratory distress, CTA bilaterally Gastrointestinal - NT / ND; +BS; No rebound or guarding Extremities - no calf tenderness bilaterally, no swelling Skin - Warm/Dry. There an ethemetous papular rash along the L T5 dermatome. There are also excoriated maculopapular rash of the radial aspect LUE Neurological - Alert & oriented x3, Slurred speech, fluent, otherwise CN II-XII in tact, 4/5 strength BLE, +left sided arm drift. Symmetric reflexes Psychological - Appropriate affect Results Labs 07/13/24 09:13 07/13/24 09:13 Labs: Laboratory Results - last 24 hr 07/13/24 07/13/24 08:25 09:13 MCV 84.5 MCH 27.4 MCHC 32.4 RDW 13.7 Plt Count 264 MPV 9.3 L Immature Gran % (Auto) 0.3 Neut % (Auto) 76.0 H Lymph % (Auto) 14.7 L [place] % (Auto) 5.7 Eos % (Auto) 2.5 Baso % (Auto) 0.8 Lymph # (Auto) 1.1 L [place] # (Auto) 0.4 Eos # (Auto) 0.2 Baso # (Auto) 0.1 Abs Immat Gran (auto) 0.02 Absolute Neuts (auto) 5.6 Absolute Nucleated RBC 0.000 Nucleated RBC % (auto) 0.0 Anion Gap 11 L Estim Creat Clear Calc 58.2 Estimated GFR 41 POC Glucose 98 Random Glucose 109 Calcium 8.8 Total Bilirubin 0.3 AST 28 ALT 10 Alkaline Phosphatase 66 Total Protein 6.7 Albumin 3.1 L Assessment and Plan (1) Dermatitis: Status: Acute (2) Acute CVA (cerebrovascular accident): Status: Acute Plan 59-year-old male with history of paroxysmal atrial fibrillation anticoagulated with Eliquis, uncontrolled noninsulin dependent type 2 diabetes, GERD, hypertension, hyperlipidemia admitted for management of CVA Acute CVA NIHSS 3. Not a candidate for TNK- outside window and on eliquis Head CT negative for acute abnormality. CT of the head/neck negative for large vessel occlusion or hemodynamically significant stenosis MRI brain ordered Echocardiogram Give ASA 81 mg x 1. Neurology recommending 81 mg once or twice weekly Continue Eliquis Lipid profile pending. Atorvastatin 80 mg daily Failed bedside swallow evaluation. NPO, TRANSPORTATION MAINTENANCE SUPERVISOR evaluation pending Stroke education, neuro checks Neurology input appreciated Monitor on telemetry Acute dematitis possibly late symptoms of shingles antiviral not indicated. Currently asymptomatic kenalog bid Paroxysmal atrial fibrillation-rate controlled Continue Eliquis for anticoagulation Continue metoprolol Uncontrolled [id number] type 2 diabetes Hemoglobin A1c 12.1% Glucose levels currently controlled. Patient NPO. Consider adding long-acting insulin once diet advances POC glucose, sliding scale insulin Hold metformin GERD PPI Hyperlipidemia Statin BPH Terazosin Hypertension Hydralazine, metoprolol CKD stage 4 with anemia of chronic disease Baseline DVT prophylaxis-Eliquis Full code Patient requires inpatient stay at least 2 midnights for management of acute CVA requiring advanced imaging, neuro checks, close monitoring for progression of symptoms and expert consultation Quality Stroke Does the patient have a stroke diagnosis?: Yes Reason for No Anti-thrombotic by Day Two: Drug treatment not indicated VTE Prior VTE?: No VTE Risk Level:: Medical - moderate - high VTE Device Contraindication: Treatment Not Indicated VTE Drug Contraindication: N/A - Med Ordered
[2024-07-13 10:41] LABS: Cholesterol 134 mg/dL (<200); HDL Cholesterol 31 mg/dL (>40); LDL Cholesterol Calculated 74 mg/dL (<100); Triglycerides 147 mg/dL (<150)
--- NOTE | 2024-07-13 10:42 | PC.NURSE ---
MRI FORM FILLED, FAXED DOWN.
--- NOTE | 2024-07-13 11:17 | PC.NURSE ---
Informed admitting provider Tamy patient failed swallow eval, AM PO meds held.
[2024-07-13 11:26] LABS: Glucose, Whole Blood 104 mg/dL (60-115)
--- NOTE | 2024-07-13 12:11 | PHA.MEDREC ---
Pharmacy Consult ? Medication Reconciliation Pharmacy has completed the medication reconciliation. Patient's mother at bedside, able to confirm all medications and timing. She noted he took his medications yesterday
--- NOTE | 2024-07-13 12:29 | PC.NURSE ---
SHADOW GRAPH WEIGHT OPERATOR eval: recc NDD1 with NTL, aspiration precautions, assist with feeding, meds crushed in pur?e. SHADOW GRAPH WEIGHT OPERATOR following, likely will need tx for dysarthria upon d/c. Admitting provider Tamy included in tiger message.
--- NOTE | 2024-07-13 12:47 | MHC.SL.SWA ---
Speech Pathologist Impression: Mild to moderate oropharyngeal dysphagia s/p CVA Risk of Aspiration Due to: Decreased awareness Oropharyngeal weakness Dysphasia Diet Status: Liquid Consistency and Strategies for Safe Swallow: Liquid Intake Recommendation: [place] Thick Liquid Intake Strategies: Small Sips Solid Food Consistency: Dietary Recommendations: Pureed (NDD1) Additional Modifications to Solid Foods: Oral Medication Intake: Crushed with Puree Please contact the pharmacy regarding appropriate crushable or liquid drug formulations that are available whenever modified delivery is recommended. Compensatory Strategies and Precautions to be Taken for Safe Swallow: Sitting Upright (90 deg) Small Bites and Sips Alternate Liquids/Solids Rate of Ingestion Change Supervision While Eating and Drinking for Safe Swallow: Total Supervision (1:1) Foods to Avoid: Swallowing Recommended Treatments: Compens. Strategy Educat. Recommendation for Speech: Oromotor exam revealed mild weakness in lingual mobility. Range of motion WFL. Lip and jaw movements adequate. Pt motor speech is mildly to moderately dysarthric and verbal expression is limited to single words/phrases. Pt trialed with thins by cup, initially coordinating oral and pharyngeal phases without overt s/s of aspiration. Pt unable to consistently draw fluid up when given trials of thins with straw. Pt trialed with tsps of puree, again with good coordination across swallow phases. Pt experienced brief episode of hiccoughing. After a pause, hiccoughs subsided. Then pt given cup of water to sip, but took a large amount despite cues to take small sip, and elicited immediate cough. Trials of NTL proved more safe as pt slowed pace across sips, with adequate tolerance and absence of cough s/p swallow. Recc NDD1 with NTL, 1:1 supervision, aspiration precautions, cues to slow pace. REFINING EQUIPMENT OPERATOR to follow, re-assess daily. Pt also has pending cognition/language evaluation, anticipate he will need REFINING EQUIPMENT OPERATOR tx for dysphagia and aphasia/dysarthria/cognition. Frequency/Duration: Daily M-F Date Range for Service Req: Timeline to reassess: Screed Operator Clinican/Clinical Fellow: No Supervisory Statement: I have reviewed and agree with the student/clinical fellow's documentation: N/A Speech Language Pathologist: Geovanna Gaffney M.S., [facility]-REFINING EQUIPMENT OPERATOR
[2024-07-13] MEDS: Enoxaparin Sodium 150 MG/ML SYRINGE 110 MG SUBCUT (13:27)
--- NOTE | 2024-07-13 14:34 | PC.NURSE ---
Full bed bath and linen change given as patient was grossly incontinent of stool and urine.
--- NOTE | 2024-07-13 15:35 | PC.NURSE ---
Pt's BP trending high, admitting provider Tamy made aware, no new orders at this time.
[2024-07-13] MEDS: 0.9 % Sodium Chloride Flush 3 ML SYRINGE IVFLUSH (16:27)
[2024-07-13] MEDS: Omeprazole 20 MG CAPSULE.DR PO (16:30)
[2024-07-13 16:31] LABS: Glucose, Whole Blood 105 mg/dL (60-115)
[2024-07-13 17:21] LABS: Glucose, Whole Blood 125 mg/dL (60-115)
[2024-07-13 19:31] LABS: Glucose, Whole Blood 134 mg/dL (60-115)
[2024-07-13] MEDS: Doxazosin Mesylate 2 MG TABLET 8 MG PO (22:23)
[2024-07-13] MEDS: Apixaban 5 MG TABLET PO (22:23)
[2024-07-13] MEDS: Triamcinolone Acet 0.1 % Cream 15 GM TUBE 1 APPL TOPICAL (22:28)
[2024-07-13 22:32] LABS: Glucose, Whole Blood 118 mg/dL (60-115)
[2024-07-14] VITALS (7 sets, daily range): BP systolic 172–197; BP diastolic 80–100; PULSE 84–90; RESP 15–20; TEMP 36.4–37; O2SAT 95–97
[2024-07-14] MEDS: 0.9 % Sodium Chloride Flush 3 ML SYRINGE IVFLUSH ×3 (00:50→17:17)
[2024-07-14 05:23] LABS: Glucose, Whole Blood 86 mg/dL (60-115)
[2024-07-14] MEDS: Omeprazole 20 MG CAPSULE.DR PO ×2 (06:25→17:12)
--- NOTE | 2024-07-14 06:31 | PC.NURSE ---
This RN was told during nurse to nurse report 07/13/24 1900 that the pt's pupils were unequal with the L pupil 3mm and R pupil 4cm. Upon neuro exam at 20:00, 22:00 and 00:00, this RN found the pt's pupils to be PERRLA at 3mm. Upon neuro exam at 05:00 on 07/14, this RN found the pt's pupils to be unequal at R pupil 4mm and L pupil 3mm. All other neuro exam findings remained consistent. Provider Krissy was notified, CT head was ordered and completed. Oncoming RN to be made aware.
--- NOTE | 2024-07-14 07:00 | CA_ITS ---
Transthoracic Echocardiogram Patient (Last, First, Middle): Silvestre Stallings D Gender: Male Date of : 1965 Age: 59 Procedure Date: 07/14/2024 Procedure Type: Transthoracic [place] [facility] [place]: 182.88 cm Weight: 113.85 kg BSA: 2.35 m2 Heart Rate: 89 bpm BP: 181 / 94 mmHg Gear Cutter: SB Referring MD: Tamy LISA Symptoms: cva Study Quality: Adequate ECG Rhythm: Sinus Conclusions: - The left ventricular systolic function is normal. The visually estimated ejection fraction is between 60-65%. - No obvious valvular pathology seen on this study. - Bubble study negative during rest and valsalva. Findings Procedure Information Contrast agent, definity, is being given per protocol without apparent complications. Left Ventricle Normal left ventricular cavity size. The left ventricular systolic function is normal. The visually estimated ejection fraction is between 60-65%. There is no evidence of regional wall motion abnormalities. Evidence suggests grade I (mild) diastolic dysfunction. There is mild septal asymmetric hypertrophy. Right Ventricle Normal right ventricular cavity size and systolic function. Atria Both atria are normal in size. There is no evidence of interatrial shunt by agitated saline. Bubble study negative during rest and valsalva. Aortic Valve There is mild calcification of the aortic valve. There is no aortic valve stenosis. There is no aortic valve regurgitation. Mitral Valve The mitral valve appears normal. There is mild mitral annular calcification. There is no mitral valve regurgitation. There is no mitral valve stenosis. Pulmonic Valve The pulmonic valve is likely normal. Tricuspid Valve Normal tricuspid valve structure. There is no tricuspid valve regurgitation. Tricuspid regurgitation envelope is inadequate for calculation of right ventricular systolic pressure. Great Vessels The asc aorta is normal in size. Venous The inferior vena cava is normal in size and collapses less than 50% with inspiration. Pericardium/Pleural There is no evidence of pericardial effusion. Prior Study Comparison No significant change compared to prior study dated: 01/22/2024. Recommendations, Care & Conclusions No obvious valvular pathology seen on this study. Measurements 2D Linear Measurements IVSd: 1.17 0.6-0.9/0.6-1.0 cm LVIDd: 4.48 3.9-5.3/4.2-5.9 cm LVIDd Index: 1.91 2.4-3.2/2.2-3.1 cm/m2 LVIDs: 2.84 2.0-3.6 cm LVPWd: 1.01 0.7-1.1 cm LA Diam: 4.20 2.7-3.8/3.0-4.0 cm LAIDs Index: 1.79 1.5-2.3 cm/m2 LV Mass: 213.71 67-162/88-224 g LV Mass Index: 90.94 43-95/49-115 g/m2 LVOT Diam: 2.50 3.0+(-)1.3 cm 2D Systolic Function EF 4C: 74.60 >55% EF 2C: 73.20 >55% Mitral Valve MV Pk E: 0.84 MV PK A: 0.97 MV Decel Time: 159.00 E/A: 0.90 E'Lateral: 8.27 E'Medial: 6.09 E/E' Med: 13.70 E/E' Lat: 10.10 PHT: 47.00 MVA PHT: 4.68 Decel [place]: 5.25 Aortic Valve AoV Pk Gabriel: 1.64 AoV Pk Grad: 11.00 WEST: 3.21 LVOT LVOT Pk Gabriel: 1.01 LVOT Mn Gabriel: 0.77 LVOT VTI: 0.21 LVOT Pk Grad: 4.00 LVOT Mn Grad: 3.00 LVOT Diam: 2.50 LVOT Area: 4.91 Diastolic Function MV Pk E: 0.84 MV Pk A: 0.97 E/A: 0.90 E'Medial: 6.09 E/E' Med: 13.70 E' Laterial: 8.27 E/E' Lat: 10.10 Right Ventricle TAPSE (mm): 20.30 TVS' Gabriel: 19.00 Great Vessels Aorta Sinus of Valsalva: 3.50 2.0-3.5 cm Ao Asc: 3.80 2.1-3.4 cm Pulmonary Veins Pulm Vein S/D 1.80 Pulmonary Valve PV Pk Gabriel: 1.34 Peak PV Grad: 7.00 Updated in Other Vendor System with Status of Final Moncho Carnes MD electronically signed on 07/14/2024 12:57:38 PM with status of Final
[2024-07-14 07:44] LABS: Glucose, Whole Blood 97 mg/dL (60-115)
--- NOTE | 2024-07-14 08:14 | MHC.PT.OE ---
[facility] [place] Office [place] Office [place] Office [address] Richelle Calderon 140 [facility] [phone] F: [phone] F: [phone] F: [phone] F: [phone] Physical Therapy Evaluation Evaluation Date: Current Condition Diagnosis: Onset Date: Date of Surgery: Chief Complaint/ Current Level of Function: Prior Level of Function/Occupation: Diagnostic Imaging: Patient Goals and Expectations: Past Medical History: Medications: Precautions/ Contraindications: DM II Aphasia Outcome Measure: Pain Pain Score: Pain Scale Used: Pain Location/ Description: Aggravating Factors: Alleviating Factors: Objective Findings Posture: Skin & Soft Tissue/ Palpation: Gait/ Functional Mobility: AROM (PROM) Strength Cervical Spine Flexion: Extension: Lateral Flexion: Rotation: Cervical Comments: Flexion: Extension: Lateral Flexion: Rotation: Other: Shoulder Flexion: Extension: Abduction: ER: IR: Apley ER: Apley IR: Comments: Flexion: Extension: Abduction: Adduction: ER: IR: Other: Elbow Flexion: Extension: Pronation: Supination: Comments: Flexion: Extension: Pronation: Supination: Wrist Flexion: Wrist Extension: Other: Lumbar Spine Flexion: Extension: Lateral Flexion: Rotation: Comments: Transverse abdominus: Extensors: Other: Hip Flexion: Extension: Abduction: Adduction: ER: IR: Comment: Flexion: Extension: Abduction: Adduction: ER: IR: Other: Knee Flexion: Extension: Comments: Patella Mobility: Flexion: Extension: Other: Ankle Dorsiflexion: Plantarflexion: Inversion: Eversion: Comments: Dorsiflexion: Plantarflexion: Inversion: Eversion: Comments: Bora Assessment: Sacroiliac Assessment: Muscle Length: Special Tests: Vitals: BP: 172/80 HR: 86 O2SAT: RR: 15 Other: Balance: Neurological Screen: Biceps DTR: Brachioradialis DTR: Triceps DTR: Patella DTR: Achilles DTR: Other: Dermatomes: Sensation: Myotomes: Patient Education Primary Paint Stripper Required Who was Educated Readiness for Learning Current Knowledge Education Needs Teaching Method How did Patient Demonstrate Learning Barriers to Learning Assessment Assessment: Rehabilitation Potential: Plan of Care Frequency and Duration Short Term Goals Knife Cutter Goals Treatment Plan Reviewed/ Agreed with Student Documentation: Therapist: Electronically signed by: Please sign and return to therapist. Thank you for your referral.
[2024-07-14] MEDS: Atorvastatin Calcium 80 MG TABLET PO (08:38)
[2024-07-14] MEDS: Magnesium Oxide 400 MG TABLET 800 MG PO ×2 (08:38→17:12)
[2024-07-14] MEDS: Apixaban 5 MG TABLET PO ×2 (08:38→21:04)
[2024-07-14 09:26] LABS: Hemoglobin 10.9 g/dl (14.0-18.0); Mean Corpuscular HGB Conc 32.1 g/dl (31.0-36.0); Mean Corpuscular Volume 84.2 fL (80.0-98.0); Mean Platelet Volume 9.8 fL (9.4-12.4); Platelet Count 272 X10*3/uL (160-400); Red Blood Count 4.04 X10*6/uL (4.60-5.80); Red Cell Distribution Width 13.8 % (11.0-16.0); White Blood Count 6.5 X10*3/uL (4.8-10.8)
[2024-07-14 09:36] LABS: Anion Gap 12 (12-20); Blood Urea Nitrogen 20 mg/dL (9-16); Calcium 8.7 mg/dL (8.4-10.2); Carbon Dioxide 25 mmol/L (22-29); Chloride 106 mmol/L (96-108); Creatinine Clr Calc Pharmacy 64.3; Estimated Glomerular Filt Rate 44; Glucose Random 113 mg/dL (60-115); Potassium 3.6 mmol/L (3.3-5.1); Sodium 139 mmol/L (135-145)
--- NOTE | 2024-07-14 09:49 | MHC.CM.PN ---
EMR REVIEWED, PT W/CVA, P.T. RECOMMENDING ACUTE VS STR, CM MET W/PT AND PT LIVES ALONE, IS FULLY INDEP W/ALL CARE, DENIES USE OF DME/SERVICES, PT'S PREFERRED AR IS [facility] AND REFERRAL PLACED, PER HOSPITALIST ANTIC PT WILL BE READY FOR DC IN 1-2 DAYS. PT VERIFIES PCP IS DR. SOSA, HCP IS DT[facility] OSEI AND COPY REQUESTED.
[2024-07-14 11:26] LABS: Glucose, Whole Blood 149 mg/dL (60-115)
[2024-07-14 11:36] LABS: INR Whole Blood 1.1 (0.9-1.1); Prothrombin Time Whole Blood 13.6 sec (11.1-13.5)
--- NOTE | 2024-07-14 12:55 | HO.PM.IMPN ---
Subjective Subjective Date of Service: 07/14/24 Interval History: seen and evaluated feels the same tolerated PO with assistance BP remains elevated no other events Review of Systems Review of Systems: Yes all other systems are reviewed and are negative Physical Exam Vital Signs: Vital Signs: Last Vital Signs Temp 97.8 F 07/14/24 11:21 Pulse 87 07/14/24 11:21 Resp 20 07/14/24 11:21 BP 177/85 H 07/14/24 11:21 Pulse Ox 95 07/14/24 11:21 O2 Del Method Room Air 07/14/24 11:21 BMI result Body Mass Index 34.1 Const: Other: Constitutional : Awake, interactive, not in distress Neck : Normal inspection, Supple Cardiovascular : RRR, no JVP, no lower extremity edema Respiratory : good bilateral air entry, no crackles, wheezes or rhonchi Gastrointestinal: soft, lax, Normal bowel sounds, Non tender Skin : Warm, Dry Neurological : Alert & oriented x3, normal fluency of speech. Speech moderately slurred. Face is symmetrical. Tongue is midline. Pupils are round and reactive to light, mild mydriasis on right pupil. mild left-sided drift. mild weakness left upper and lower extremities Objective Data Active Medications Acetaminophen (Acetaminophen 325 Mg Tablet) 650 mg PO Q6H PRN PRN Reason: Pain, Mild 1-3,fever,headache Apixaban (Apixaban 5 Mg Tablet) 5 mg PO BID [facility] Last Admin: 07/14/24 08:38 Dose: 5 mg Documented By: ANIKA Atorvastatin Calcium (Atorvastatin Calcium 80 Mg Tablet) 80 mg PO DAILY [facility] Last Admin: 07/14/24 08:38 Dose: 80 mg Documented By: ANIAK Calcium Carbonate (Calcium Carbonate 750 Mg Tab.Chew) 750 mg PO Q4H PRN PRN Reason: Heartburn Dextrose (Dextrose 50 % 25 Gm/50 Ml Syringe) 25 gm IVPUSH Q15M PRN; Protocol PRN Reason: per Hypoglycemia Standing Ord. Doxazosin Mesylate (Doxazosin Mesylate 2 Mg Tablet) 8 mg PO BEDTIME [facility] Last Admin: 07/13/24 22:23 Dose: 8 mg Documented By: LULU Glucose (Glucose Gel 15 Gm Gel..Gram.) 15 gm PO Q15M PRN; Protocol PRN Reason: per Hypoglycemia Standing Ord. Insulin Human Lispro (Insulin Lispro 100 Unit/Ml 3 Ml Vial) 0 unit SUBCUT Q6H [facility]; Protocol Last Admin: 07/14/24 12:22 Dose: Not Given Documented By: ANIKA Non-Admin Reason: No Insulin Coverage Magnesium Hydroxide (Milk Of Magnesia 30 Ml Oral.Susp) 30 ml PO DAILY PRN PRN Reason: Constipation Magnesium Oxide (Magnesium Oxide 400 Mg Tablet) 800 mg PO BIDPC [facility] Last Admin: 07/14/24 08:38 Dose: 800 mg Documented By: ANIKA Melatonin (Melatonin 3 Mg Tablet) 6 mg PO BEDTIME PRN PRN Reason: Insomnia Omeprazole (Omeprazole 20 Mg Capsule.) 20 mg PO BID@0630,1630 [facility] Last Admin: 07/14/24 06:25 Dose: 20 mg Documented By: LULU Sodium Chloride (0.9 % Sodium Chloride Flush 3 Ml Syringe) 3 ml IVFLUSH QSHIFT [facility] Last Admin: 07/14/24 08:39 Dose: 3 ml Documented By: ANIKA Triamcinolone Acetonide (Triamcinolone Acet 0.1 % Cream 15 Gm Tube) 1 appl TOPICAL BID [facility]; Protocol Last Admin: 07/13/24 22:28 Dose: 1 appl Documented By: LULU Labs 07/14/24 08:56 07/14/24 08:56 Labs: Laboratory Results - last 24 hr 07/13/24 07/13/24 07/13/24 08:26 16:25 17:17 MCV MCH MCHC RDW Plt Count MPV Absolute Nucleated RBC Nucleated RBC % (auto) PT (Fingerstick) 13.6 H INR (Fingerstick) 1.1 Anion Gap Estim Creat Clear Calc Estimated GFR POC Glucose 105 125 H Random Glucose Calcium 07/13/24 07/13/24 07/14/24 19:26 22:28 05:14 MCV MCH MCHC RDW Plt Count MPV Absolute Nucleated RBC Nucleated RBC % (auto) PT (Fingerstick) INR (Fingerstick) Anion Gap Estim Creat Clear Calc Estimated GFR POC Glucose 134 H 118 H 86 Random Glucose Calcium 07/14/24 07/14/24 07/14/24 07:40 08:56 11:19 MCV 84.2 MCH 27.0 MCHC 32.1 RDW 13.8 Plt Count 272 MPV 9.8 Absolute Nucleated RBC 0.000 Nucleated RBC % (auto) 0.0 PT (Fingerstick) INR (Fingerstick) Anion Gap 12 Estim Creat Clear Calc 64.3 Estimated GFR 44 POC Glucose 97 149 H Random Glucose 113 Calcium 8.7 Assessment and Plan (1) Acute CVA (cerebrovascular accident): Status: Acute (2) Dermatitis: Status: Acute (3) Uncontrolled diabetes mellitus: Status: Acute Plan 59-year-old male with history of paroxysmal atrial fibrillation anticoagulated with Eliquis, uncontrolled noninsulin dependent type 2 diabetes, GERD, hypertension, hyperlipidemia admitted for management of CVA Acute right thalamus stroke Not a candidate for TNK- outside window and on eliquis Head CT negative for acute abnormality. CT of the head/neck negative for large vessel occlusion or hemodynamically significant stenosis MRI as reported, Small diffusion restricting right thalamic infarct. There is associated increased T2/FLAIR signal. Repeat CT 07/14 for unequal pupils, no changes. stable findings on exam. Pending Echocardiogram Neurology recommending 81 mg once or twice weekly along with full dose Eliquis Increase Atorvastatin to 80 mg daily MANDATE RETAIL SERVICE MERCHANDISER evaluation Advance diet Stroke education, neuro checks Monitor on telemetry Elevated blood pressures left for permissive hypertension Hold Hydralazine, restart by tomorrow after 48 hrs Start Metoprolol 25 mg XL bid for now Skin rash likely dematitis antiviral not indicated. Currently asymptomatic, kenalog bid Paroxysmal atrial fibrillation-rate controlled Continue Eliquis for anticoagulation Continue metoprolol Uncontrolled cbb-hikidgl-ncucnpulo type 2 diabetes Hemoglobin A1c 12.1% Glucose levels currently controlled. Patient NPO. Consider adding long-acting insulin once diet advances POC glucose, sliding scale insulin Hold metformin GERD PPI Hyperlipidemia Statin BPH Terazosin Hypertension Hydralazine, metoprolol CKD stage 4 with anemia of chronic disease Baseline DVT prophylaxis-Eliquis Full code Patient requires inpatient stay overnight for management of acute CVA requiring advanced imaging, neuro checks, close monitoring , PT, OT , MANDATE RETAIL SERVICE MERCHANDISER evaluation and monitoring for progression of symptoms and care planning Quality Stroke Does the patient have a stroke diagnosis?: Yes Reason for No Anti-thrombotic by Day Two: Drug treatment not indicated VTE Prior VTE?: No VTE Risk Level:: Medical - moderate - high VTE Device Contraindication: Treatment Not Indicated VTE Drug Contraindication: N/A - Med Ordered
--- NOTE | 2024-07-14 13:46 | MHC.CLN ---
CONSULT FOR DM EDUCATION; REVIEWED FOODS THAT AFFECT BLOOD SUGAR. PT REPORTED HE HAS SPOKEN TO A DIETITIAN IN THE PAST ABOUT HIS DIET. DID NOT WANT TO ENGAGE IN A FULL DETAILED EDUCATION SESSION, HANDOUTS LEFT AT BEDSIDE TABLE. RECOMMEND OUT PT RD FOR FUTURE FOLLOW UP -LIST PROVIDED TO PT WITH OUT PATIENT REFERRALS SEE ALSO TEACHING RECORD
[2024-07-14] MEDS: Triamcinolone Acet 0.1 % Cream 15 GM TUBE 1 APPL TOPICAL (15:16)
[2024-07-14] MEDS: Metoprolol Succinate ER 25 MG TAB.ER.24H PO ×2 (15:16→21:02)
--- NOTE | 2024-07-14 15:30 | MHC.SL.SWA ---
Dysphasia Diet Status: Recommend upgrade to THIN liquids (NO STRAW) and CHOPPED/ADVANCED solids (NDD3). Recommend pills whole/crushed in puree d/t some lingual weakness. Pt presents w/ slow and imprecise speech. UNION REPRESENTATIVE to continue to follow for dysphagia and speech. Liquid Consistency and Strategies for Safe Swallow: Liquid Intake Recommendation: Thin Liquid Intake Strategies: Small Sips Solid Food Consistency: Dietary Recommendations: NDD3 Oral Medication Intake: Whole with Puree Please contact the pharmacy regarding appropriate crushable or liquid drug formulations that are available whenever modified delivery is recommended. Compensatory Strategies and Precautions to be Taken for Safe Swallow: Sitting Upright (90 deg) No Straw Small Bites and Sips Alternate Liquids/Solids Rate of Ingestion Change Supervision While Eating and Drinking for Safe Swallow: Tray Set Up Swallowing Recommended Treatments: Compens. Strategy Educat. Recommendation for Speech: Pt edentulous. Tolerated bite size pieces of elin cracker dipped in applesauce w/ slightly prolonged mastication. Pt tolerated thin liquids via cup sip but coughed w/ straw. Pt screened for cog/lang/speech. No difficulty w/ automatic speech tasks (days of week, counting 1-20), immediate memory (recalled 3/3 words), and confrontational naming tasks. Presented w/ slow and imprecise speech. SLow and imprecise AMRs and SMRs; correct order of sounds and difficulty with /k/. Reports he does not have dentures and no hx of dysphagia prior to current hospitalization. UNION REPRESENTATIVE to follow for dypahgia and speech. Supervisor [employer] Department Clinican/Clinical Fellow: No Supervisory Statement: I have reviewed and agree with the student/clinical fellow's documentation: N/A Speech Language Pathologist: Geovanna Gaffney M.S., [facility]UNION REPRESENTATIVE
[2024-07-14 16:32] LABS: Glucose, Whole Blood 153 mg/dL (60-115)
[2024-07-14] MEDS: Insulin Lispro 100 UNIT/ML 3 ML VIAL SUBCUT (17:13)
[2024-07-14 20:33] LABS: Glucose, Whole Blood 133 mg/dL (60-115)
[2024-07-14] MEDS: Doxazosin Mesylate 2 MG TABLET 8 MG PO (21:03)
[2024-07-14 22:47] LABS: Glucose, Whole Blood 117 mg/dL (60-115)
[2024-07-15 04:00] VITALS: BP 145/100; PULSE 84; RESP 16; TEMP 36.2; O2SAT 96
[2024-07-15 04:54] LABS: Glucose, Whole Blood 84 mg/dL (60-115)
[2024-07-15] MEDS: Omeprazole 20 MG CAPSULE.DR PO (04:57)
[2024-07-15 07:08] LABS: MANUAL DIFF FLAG NO
[2024-07-15 07:11] LABS: Basophils Absolute Auto 0.1 X10*3/uL (0.0-0.2); Basophils Percent Auto 0.9 % (0-2); Eosinophils Absolute Auto 0.2 X10*3/uL (0.0-0.4); Eosinophils Percent Auto 2.9 % (0-4); Hematocrit 34.7 % (42.0-52.0); Hemoglobin 11.2 g/dl (14.0-18.0); Imm Gran Abs Auto 0.01 X10*3/uL (0.00-0.03); Imm Gran Pct Auto 0.2 % (0.0-0.4); Lymphocytes Absolute Auto 1.3 X10*3/uL (1.2-4.9); Lymphocytes Percent Auto 20.2 % (20-40); Mean Corpuscular HGB Conc 32.3 g/dl (31.0-36.0); Mean Corpuscular Hemoglobin 27.2 pg (27.0-33.0); Mean Corpuscular Volume 84.2 fL (80.0-98.0); Mean Platelet Volume 9.6 fL (9.4-12.4); Monocytes Absolute Auto 0.5 X10*3/uL (0.1-1.2); Monocytes Percent Auto 7.4 % (2-11); Neutrophils Absolute Auto 4.5 x10*3/uL (2.0-8.3); Neutrophils Percent Auto 68.4 % (45-73); Platelet Count 277 X10*3/uL (160-400); Red Blood Count 4.12 X10*6/uL (4.60-5.80); Red Cell Distribution Width 13.7 % (11.0-16.0); White Blood Count 6.6 X10*3/uL (4.8-10.8)
[2024-07-15 07:13] LABS: Glucose, Whole Blood 99 mg/dL (60-115)
[2024-07-15 07:22] LABS: Anion Gap 13 (12-20); Blood Urea Nitrogen 19 mg/dL (9-16); Calcium 8.6 mg/dL (8.4-10.2); Carbon Dioxide 25 mmol/L (22-29); Chloride 106 mmol/L (96-108); Creatinine Clr Calc Pharmacy 59.2; Estimated Glomerular Filt Rate 40; Glucose Random 96 mg/dL (60-115); Potassium 3.7 mmol/L (3.3-5.1); Sodium 140 mmol/L (135-145)
[2024-07-15 07:34] VITALS: BP 183/84; PULSE 80; RESP 20; TEMP 36.7; O2SAT 97
[2024-07-15] MEDS: Apixaban 5 MG TABLET PO (09:46)
[2024-07-15] MEDS: Magnesium Oxide 400 MG TABLET 800 MG PO (09:46)
[2024-07-15] MEDS: Atorvastatin Calcium 80 MG TABLET PO (09:47)
[2024-07-15] MEDS: 0.9 % Sodium Chloride Flush 3 ML SYRINGE IVFLUSH (09:47)
[2024-07-15] MEDS: hydrALAZINE HCl 25 MG TABLET PO ×2 (09:47→14:47)
[2024-07-15] MEDS: Metoprolol Succinate ER 25 MG TAB.ER.24H PO (09:47)
[2024-07-15] MEDS: Triamcinolone Acet 0.1 % Cream 15 GM TUBE 1 APPL TOPICAL (09:50)
[2024-07-15 10:35] VITALS: BP 183/84; PULSE 80; O2SAT 97
--- NOTE | 2024-07-15 10:42 | P.PNIM_ITS ---
Subjective Subjective Date of Service: 07/15/24 Interval History: Left upper extremity weakness Physical Exam 2 Vital Signs: Vital Signs: Last Vital Signs Temp 98.1 F 07/15/24 07:34 Pulse 80 07/15/24 10:35 Resp 20 07/15/24 07:34 BP 183/84 H 07/15/24 10:35 Pulse Ox 97 07/15/24 10:35 O2 Del Method Room Air 07/15/24 07:34 BMI result Body Mass Index 34.1 Const: Other: Constitutional : Awake, interactive, not in distress Neck : Normal inspection, Supple Cardiovascular : RRR, no JVP, no lower extremity edema Respiratory : good bilateral air entry, no crackles, wheezes or rhonchi Gastrointestinal: soft, lax, Normal bowel sounds, Non tender Skin : Warm, Dry Neurological : Alert & oriented x3, normal fluency of speech. Speech moderately slurred. Face is symmetrical. Tongue is midline. Pupils are round and reactive to light, mild mydriasis on right pupil. mild left-sided drift. mild weakness left upper and lower extremities Objective Data Active Medications Acetaminophen (Acetaminophen 325 Mg Tablet) 650 mg PO Q6H PRN PRN Reason: Pain, Mild 1-3,fever,headache Apixaban (Apixaban 5 Mg Tablet) 5 mg PO BID [facility] Last Admin: 07/15/24 09:46 Dose: 5 mg Documented By: SINDY Atorvastatin Calcium (Atorvastatin Calcium 80 Mg Tablet) 80 mg PO DAILY [facility] Last Admin: 07/15/24 09:47 Dose: 80 mg Documented By: SINDY Calcium Carbonate (Calcium Carbonate 750 Mg Tab.Chew) 750 mg PO Q4H PRN PRN Reason: Heartburn Dextrose (Dextrose 50 % 25 Gm/50 Ml Syringe) 25 gm IVPUSH Q15M PRN; Protocol PRN Reason: per Hypoglycemia Standing Ord. Doxazosin Mesylate (Doxazosin Mesylate 2 Mg Tablet) 8 mg PO BEDTIME [facility] Last Admin: 07/14/24 21:03 Dose: 8 mg Documented By: TAYLOR Glucose (Glucose Gel 15 Gm Gel..Gram.) 15 gm PO Q15M PRN; Protocol PRN Reason: per Hypoglycemia Standing Ord. Hydralazine HCl (Hydralazine Hcl 25 Mg Tablet) 25 mg PO TID [facility]; Protocol Last Admin: 07/15/24 09:47 Dose: 25 mg Documented By: SINDY Insulin Human Lispro (Insulin Lispro 100 Unit/Ml 3 Ml Vial) 0 unit SUBCUT Q6H [facility]; Protocol Last Admin: 07/15/24 04:56 Dose: Not Given Documented By: TAYLOR Non-Admin Reason: No Insulin Coverage Magnesium Hydroxide (Milk Of Magnesia 30 Ml Oral.Susp) 30 ml PO DAILY PRN PRN Reason: Constipation Magnesium Oxide ([facility] 400 Mg [facility]t) [facility] Admin: 07/15/24 09:46 Dose: 800 mg Documented By: SINDY Melatonin (Melatonin 3 Mg Tablet) 6 mg PO BEDTIME PRN PRN Reason: Insomnia Metoprolol Succinate (Metoprolol Succinate Er 25 Mg Tab.Er.24h) 25 mg PO BID [facility]; Protocol Last Admin: 07/15/24 09:47 Dose: 25 mg Documented By: SINDY Omeprazole (Omeprazole 20 Mg Capsule.Dr) 20 mg PO BID@0630,1630 [facility] Last Admin: 07/15/24 04:57 Dose: 20 mg Documented By: TAYLOR Sodium Chloride (0.9 % Sodium Chloride Flush 3 Ml Syringe) 3 ml IVFLUSH QSHIFT [facility] Last Admin: 07/15/24 09:47 Dose: 3 ml Documented By: SINDY Triamcinolone Acetonide (Triamcinolone Acet 0.1 % Cream 15 Gm Tube) 1 appl TOPICAL BID [facility]; Protocol Last Admin: 07/15/24 09:50 Dose: 1 appl Documented By: SINDY Labs 07/15/24 06:44 07/15/24 06:44 Labs: Laboratory Results - last 24 hr 07/13/24 07/14/24 07/14/24 08:26 11:19 16:23 MCV MCH MCHC RDW Plt Count MPV Immature Gran % (Auto) Neut % (Auto) Lymph % (Auto) Cooper % (Auto) Eos % (Auto) Baso % (Auto) Lymph # (Auto) Cooper # (Auto) Eos # (Auto) Baso # (Auto) Abs Immat Gran (auto) Absolute Neuts (auto) Absolute Nucleated RBC Nucleated RBC % (auto) PT (Fingerstick) 13.6 H INR (Fingerstick) 1.1 Anion Gap Estim Creat Clear Calc Estimated GFR POC Glucose 149 H 153 H Random Glucose Calcium 07/14/24 07/14/24 07/15/24 20:29 22:43 04:47 MCV MCH MCHC RDW Plt Count MPV Immature Gran % (Auto) Neut % (Auto) Lymph % (Auto) [place] % (Auto) Eos % (Auto) Baso % (Auto) Lymph # (Auto) Cooper # (Auto) Eos # (Auto) Baso # (Auto) Abs Immat Gran (auto) Absolute Neuts (auto) Absolute Nucleated RBC Nucleated RBC % (auto) PT (Fingerstick) INR (Fingerstick) Anion Gap Estim Creat Clear Calc Estimated GFR POC Glucose 133 H 117 H 84 Random Glucose Calcium 07/15/24 07/15/24 06:44 07:09 MCV 84.2 MCH 27.2 MCHC 32.3 RDW 13.7 Plt Count 277 MPV 9.6 Immature Gran % (Auto) 0.2 Neut % (Auto) 68.4 Lymph % (Auto) 20.2 Cooper % (Auto) 7.4 Eos % (Auto) 2.9 Baso % (Auto) 0.9 Lymph # (Auto) 1.3 Cooper # (Auto) 0.5 Eos # (Auto) 0.2 Baso # (Auto) 0.1 Abs Immat Gran (auto) 0.01 Absolute Neuts (auto) 4.5 Absolute Nucleated RBC 0.000 Nucleated RBC % (auto) 0.0 PT (Fingerstick) INR (Fingerstick) Anion Gap 13 Estim Creat Clear Calc 59.2 Estimated GFR 40 POC Glucose 99 Random Glucose 96 Calcium 8.6 Assessment and Plan (1) Acute CVA (cerebrovascular accident): Status: Acute (2) Dermatitis: Status: Acute (3) Uncontrolled diabetes mellitus: Status: Acute Plan 59M PMH paroxysmal atrial fibrillation anticoagulated with Eliquis, uncontrolled noninsulin dependent type 2 diabetes, GERD, hypertension, hyperlipidemia presented with slurred speech and left-sided weakness Acute right thalamus stroke Not a candidate for TNK- outside window and on eliquis Head CT negative for acute abnormality. CT of the head/neck negative for large vessel occlusion or hemodynamically significant stenosis MRI as reported, Small diffusion restricting right thalamic infarct. There is associated increased T2/FLAIR signal. Repeat CT 07/14 for unequal pupils, no changes. stable findings on exam. Echo unremarkable Neurology recommending 81 mg once or twice weekly along with full dose Eliquis Increased Atorvastatin to 80 mg daily [employer] DISPATCH SUPERVISOR appreciated recommending chopped/advanced solids with thin liquids Elevated blood pressures Restarted hydralazine and metoprolol after permissive hypertension Skin rash likely dematitis antiviral not indicated. Currently asymptomatic, kenalog bid Paroxysmal atrial fibrillation-rate controlled Continue Eliquis for anticoagulation Continue metoprolol Uncontrolled eiz-bqvfmyt-ydnbfzkwy type 2 diabetes Hemoglobin A1c 12.1% Insulin sliding scale GERD PPI Hyperlipidemia Statin BPH Terazosin CKD stage 4 with anemia of chronic disease Baseline DVT prophylaxis-Eliquis Full code reason for continued hospitalization: Dispo planning Quality Stroke Does the patient have a stroke diagnosis?: Yes Reason for No Anti-thrombotic by Day Two: Drug treatment not indicated VTE Prior VTE?: No VTE Risk Level:: Medical - moderate - high VTE Device Contraindication: Treatment Not Indicated VTE Drug Contraindication: N/A - Med Ordered
--- NOTE | 2024-07-15 10:45 | PM.DS ---
DS: Providers Provider Date of Service: 07/15/24 Date of admission: 07/13/24 10:14 Date of discharge: 07/15/24 Primary care physician: Félix Carlton MD Consults: 07/13/24 09:17 Consult to Neurology Stat Consulting Provider: Eliseo Elam [facility] Reason for consultation: CVA Has provider been notified: Yes 07/13/24 10:18 Consult to Neurology Routine Consulting Provider: Neurology Yuly sanchez [facility] Reason for consultation: cva 07/13/24 17:13 Consult to Wound Care Routine Reason for consultation: shingles rash Left arm DS: Diagnosis Discharge Diagnosis (1) Acute CVA (cerebrovascular accident): Status: Acute (2) Dermatitis: Status: Acute (3) Uncontrolled diabetes mellitus: Status: Acute DS: Summary Hospital Course Hospital Course: from initial hpi: 59-year-old male with history of paroxysmal atrial fibrillation anticoagulated with Eliquis, uncontrolled noninsulin dependent type 2 diabetes, GERD, hypertension, hyperlipidemia presented to the ED earlier today for evaluation of slurred speech. He reports he woke up with these symptoms. Last known well time around 21:00 last night. His mother is at bedside reports that he also had unsteady gait last night when going to bed. The patient does also endorse left lower extremity weakness last night which he states has persisted. On arrival, was evaluated for acute stroke with CT of the head negative for any acute intracranial abnormality and CTA of the head/neck negative for any large vessel occlusion or hemodynamically significant stenosis. He is also anticoagulated with Eliquis and therefore not a candidate for TNK. He does have ongoing slurred speech and also reports dysphagia. Denies any paresthesias, confusion, vision changes, headache. No history of seizures. Has had several TIAs in the past but denies any sequela. Also has a papular rash along L T5 dermatome which mother states had bubbles that started about 6 days ago. Pt denies any pruritus or pain. No hx shingles. No drug use, cigarette smoking, or alcohol. hospital course: Patient was admitted for acute right thalamic stroke. He was not a candidate for TNK as he was on Eliquis. No large vessel occlusion was found, no hemodynamically significant stenosis. MRI showed small diffusion restricting right thalamic infarct. Echo was unremarkable. Was seen by Neurology recommended continuing Eliquis and adding aspirin 81 once or twice weekly and increasing atorvastatin to high-intensity dosing. Was seen by speech who recommended chopped/advanced solids with thin liquids. For hypertension was initially put on permissive hypertension and then hydralazine metoprolol restarted. For paroxysmal AFib continued on Eliquis and metoprolol. For uncontrolled diabetes type 2 - insulin sliding scale. For BPH continued on terazosin. For CKD 4 remained at baseline. Was seen by physical therapy recommended discharge to rehab. Patient is expected require less than 30 days. Time Attestation Discharge Coordination Time (in mins): 33 Quality: Safe Use of Opioids Does Pt have an Active Cancer Diagnosis on the Problem List?: No Quality: Stroke Does the patient have a stroke diagnosis?: Yes Reason for No Anti-thrombotic at DC: N/A - Med Ordered Reason for No Anticoagulant at DC: N/A - Med Ordered Reason Not Initiating IV-Tpa: Drug treatment not indicated Reason for No Anti-thrombotic by Day Two: N/A - Med Ordered Reason for No Statin at DC: N/A - Med Ordered Physical Exam Vital Signs: Vital Signs: Last Vital Signs Temp 98.1 F 07/15/24 07:34 Pulse 80 07/15/24 10:35 Resp 20 07/15/24 07:34 BP 183/84 H 07/15/24 10:35 Pulse Ox 97 07/15/24 10:35 O2 Del Method Room Air 07/15/24 07:34 BMI result Body Mass Index 34.1 Const: Other: Constitutional : Awake, interactive, not in distress Neck : Normal inspection, Supple Cardiovascular : RRR, no JVP, no lower extremity edema Respiratory : good bilateral air entry, no crackles, wheezes or rhonchi Gastrointestinal: soft, lax, Normal bowel sounds, Non tender Skin : Warm, Dry Neurological : Alert & oriented x3, normal fluency of speech. Speech moderately slurred. Face is symmetrical. Tongue is midline. Pupils are round and reactive to light, mild mydriasis on right pupil. mild left-sided drift. mild weakness left upper and lower extremities DS: Data Data Completed and Pending Completed studies during hospitalization [Text1]: Procedures Excision of Right Foot Tendon, Open Approach (04/26/21) Excision of Stomach, Pylorus, Via Natural or Artificial Opening Endoscopic, Diagnostic (08/25/23) Fluoroscopy of Aorta and Bilateral Lower Extremity Arteries (04/26/21) Insertion of Infusion Device into Superior Vena Cava, Percutaneous Approach (04/26/21) Labs on day of discharge: Laboratory Results - last 24 hr 07/13/24 07/14/24 07/14/24 08:26 11:19 16:23 WBC RBC Hgb Hct MCV MCH MCHC RDW Plt Count MPV Immature Gran % (Auto) Neut % (Auto) Lymph % (Auto) [place] % (Auto) Eos % (Auto) Baso % (Auto) Lymph # (Auto) [place] # (Auto) Eos # (Auto) Baso # (Auto) Abs Immat Gran (auto) Absolute Neuts (auto) Absolute Nucleated RBC Nucleated RBC % (auto) PT (Fingerstick) 13.6 H INR (Fingerstick) 1.1 Sodium Potassium Chloride Carbon Dioxide Anion Gap BUN Creatinine Estim Creat Clear Calc Estimated GFR POC Glucose 149 H 153 H Random Glucose Calcium 07/14/24 07/14/24 07/15/24 20:29 22:43 04:47 WBC RBC Hgb Hct MCV MCH MCHC RDW Plt Count MPV Immature Gran % (Auto) Neut % (Auto) Lymph % (Auto) [place] % (Auto) Eos % (Auto) Baso % (Auto) Lymph # (Auto) [place] # (Auto) Eos # (Auto) Baso # (Auto) Abs Immat Gran (auto) Absolute Neuts (auto) Absolute Nucleated RBC Nucleated RBC % (auto) PT (Fingerstick) INR (Fingerstick) Sodium Potassium Chloride Carbon Dioxide Anion Gap BUN Creatinine Estim Creat Clear Calc Estimated GFR POC Glucose 133 H 117 H 84 Random Glucose Calcium 07/15/24 07/15/24 06:44 07:09 WBC 6.6 RBC 4.12 L Hgb 11.2 L Hct 34.7 L MCV 84.2 MCH 27.2 MCHC 32.3 RDW 13.7 Plt Count 277 MPV 9.6 Immature Gran % (Auto) 0.2 Neut % (Auto) 68.4 Lymph % (Auto) 20.2 [place] % (Auto) 7.4 Eos % (Auto) 2.9 Baso % (Auto) 0.9 Lymph # (Auto) 1.3 [place] # (Auto) 0.5 Eos # (Auto) 0.2 Baso # (Auto) 0.1 Abs Immat Gran (auto) 0.01 Absolute Neuts (auto) 4.5 Absolute Nucleated RBC 0.000 Nucleated RBC % (auto) 0.0 PT (Fingerstick) INR (Fingerstick) Sodium 140 Potassium 3.7 Chloride 106 Carbon Dioxide 25 Anion Gap 13 BUN 19 H Creatinine 1.75 H Estim Creat Clear Calc 59.2 Estimated GFR 40 POC Glucose 99 Random Glucose 96 Calcium 8.6 Discharge Plan Discharge Anticipated Discharge Date/Time: 07/15/24 10:48 Patient Disposition: Xfer Inpatient Rehab Fac Discharge Diagnosis: cva Referrals: [facility] [Outside] - 1 Day (ACUTE REHAB) Félix Carlton MD [Primary Care Provider] - 1 Week Discharge Medications: New atorvastatin 80 mg Tablet 80 mg PO DAILY Qty: 0 0RF aspirin 81 mg capsule 81 mg PO .weekly Qty: 90 0RF Continued (DME) FreeStyle Lite Strips Strip See Rx Instructions .ROUTE .MEDSUPPLY Qty: 100 12RF Rx Instructions: As directed 3 times a day (DME) FreeStyle Dedra 14 Day Sensor Kit See Rx Instructions .Route Qty: 1 5RF Rx Instructions: As directed (DME) FreeStyle Dedra 3 [place] Misc See Rx Instructions .ROUTE .MEDSUPPLY Qty: 1 1RF Rx Instructions: As directed (DME) FreeStyle Dedra 3 Sensor Device See Rx Instructions .ROUTE .MEDSUPPLY Qty: 1 1RF Rx Instructions: As directed magnesium oxide 400 mg (241.3 mg magnesium) tablet 800 mg PO BIDPC Qty: 120 5RF Eliquis 5 mg tablet 5 mg PO BID 30 Days Qty: 60 1RF metformin 1,000 mg tablet 1,000 mg PO BID Qty: 60 1RF metoprolol succinate 25 mg tablet extended release 24 hr 25 mg PO TID Qty: 270 0RF terazosin 5 mg capsule 5 mg PO BEDTIME 30 Days Qty: 30 1RF (DME) Walker with seat See Rx Instructions .Route .MEDSUPPLY Qty: 1 0RF Rx Instructions: As directed (DME) Toilet seat riser See Rx Instructions .Route .MEDSUPPLY Qty: 1 0RF Rx Instructions: As directed (DME) Bed pads and the pins See Rx Instructions .Route .MEDSUPPLY Qty: 1 0RF Rx Instructions: As directed ammonium lactate 12 % lotion 1 appl topical DAILY PRN (Reason: Rash) omeprazole 20 mg capsule,delayed release(DR/EC) 20 mg PO BID@0630,1630 hydralazine 25 mg tablet 25 mg PO BID Qty: 180 3RF (DME) blood pressure test kit-large Kit See Rx Instructions .Route Qty: 1 0RF Rx Instructions: As directed Discontinued atorvastatin 40 mg tablet 40 mg PO BEDTIME Qty: 90 0RF Discharge Orders: Discharge Order (Routine); Ordered 07/15/24 Ordered By: Duane Brewer Diet: NDD3 solids, thin liq Activity on Discharge: As tolerated Stand Alone Forms: Patient Portal Discharge page Print Language: Tajik Care Plan Goals: Recovery, prevent strokes Health Concerns: CVA Plan of Treatment: Baby aspirin 1-2 times weekly, increased atorvastatin to 80 mg, rehab, weight loss Assessment: See above
--- NOTE | 2024-07-15 11:28 | MHC.CM.PN ---
JUANITO PT WILL DC LATER TODAY TO [facility] [place] DOES NOT HAVE AN AVAILABLE BED, CM MET W/PT AND PT'S MOTHER AT BEDSIDE, PT'S MOM REQUESTING TO SPEAK W/HOSPITALIST AND IS ANXIOUS ABOUT PT'S DISCHARGE, HOSPITALIST AWARE VIA [facility] FOR BLS TRANSPORT
--- NOTE | 2024-07-15 11:28 | MHC.SL.SWA ---
Speech Pathologist Impression: Moderate oral phase dysphagia d/t L sided weakness, pocketing in L cheek Risk of Aspiration Due to: Reduced cognition Oromotor weakness Dysphasia Diet Status: Recommend downgrade to NDD1 (PUREES) and THIN liquids (NO STRAWS). Recommend pills whole/crushed in puree d/t lingual weakness. Pt presents w/moderate to significantly slow and imprecise speech. [employer] to continue to follow for dysphagia and speech. Liquid Consistency and Strategies for Safe Swallow: Liquid Intake Recommendation: Thin Liquid Intake Strategies: No Straws Solid Food Consistency: Dietary Recommendations: Pureed (NDD1) Additional Modifications to Solid Foods: Oral Medication Intake: Crushed with Puree Please contact the pharmacy regarding appropriate crushable or liquid drug formulations that are available whenever modified delivery is recommended. Compensatory Strategies and Precautions to be Taken for Safe Swallow: Sitting Upright (90 deg) No Straw Small Bites and Sips Alternate Liquids/Solids Rate of Ingestion Change Supervision While Eating and Drinking for Safe Swallow: Tray Set Up Foods to Avoid: Swallowing Recommended Treatments: Oral Motor Exercises Pharyngeal Resistive Exer Compens. Strategy Educat. Recommendation for Speech: Comment: Pt seen for swallow re-assessment as TONGSMAN/RN reported pt coughing on food. Pt able to chew solids but coordination moderately slow, with increased pocketing in L cheek. Pt cued to alternate consistencies and elicit lingual sweep. Pt able to follow simple cues but was notably more dysarthric today. Processing speed slow, with delays in understanding simple instructions. MD notified of diet downgrade, [employer] to follow. Recommend upgrade to THIN liquids (NO STRAW) and CHOPPED/ADVANCED solids (NDD3). Recommend pills whole/crushed in puree d/t some lingual weakness. Pt presents w/ slow and imprecise speech. [employer] to continue to follow for dysphagia and speech. Frequency/Duration: Daily M-F Date Range for Service Req: Timeline to reassess: Digital Cartographer Clinican/Clinical Fellow: No Supervisory Statement: I have reviewed and agree with the student/clinical fellow's documentation: N/A Speech Language Pathologist: Geovanna Gaffney M.S., [facility]
[2024-07-15 11:30] VITALS: BP 150/81; PULSE 91; RESP 14; TEMP 36.6; O2SAT 96
[2024-07-15 11:58] LABS: Glucose, Whole Blood 215 mg/dL (60-115)
[2024-07-15 15:36] LABS: Glucose, Whole Blood 180 mg/dL (60-115)
== END 2024-07-15 16:17 | DRG 65 ==
LOC: HO.ED 09:36 → HO.EDOVER 10:38 → HO.IMC 15:40
PROVIDERS: Student in an Organized Health Care Education/Training Program; Admitting Provider Physician Assistant; Emergency Provider Emergency Medicine; PCP Internal Medicine; Visit Provider Internal Medicine
DX: I63.9 Cerebral infarction, unspecified (principal); G81.94 Hemiplegia, unspecified affecting left nondominant side; N18.4 Chronic kidney disease, stage 4 (severe); R20.0 Anesthesia of skin; R29.703 NIHSS score 3; I12.9 Hypertensive chronic kidney disease with stage 1 through stage 4 chronic kidney disease, or unspecified chronic kidney disease; B02.9 Zoster without complications; K21.9 Gastro-esophageal reflux disease without esophagitis; N40.0 Benign prostatic hyperplasia without lower urinary tract symptoms; E11.22 Type 2 diabetes mellitus with diabetic chronic kidney disease; I48.0 Paroxysmal atrial fibrillation; D63.1 Anemia in chronic kidney disease; Z79.01 Long term (current) use of anticoagulants; Z79.84 Long term (current) use of oral hypoglycemic drugs; Z79.899 Other long term (current) drug therapy
CPT/HCPCS: 36415; 70450; 70496; 70498; 70551; 71045; 80048; 80053; 80061; 82947; 84484; 85025; 85027; 85610; 92526; 92610; 93005; 93306; 97112; 97163; 97167; 97530; 99285; J1650; Q9957; Q9967

== ENCOUNTER → 2024-07-13 08:28 | Outpatient (BNV) | payer MEDICARE, MEDICAID, SELFPAY | PROVIDERS: Emergency Provider Emergency Medicine; PCP Internal Medicine; Visit Provider Radiology Diagnostic Radiology | DX: I63.81 Other cerebral infarction due to occlusion or stenosis of small artery (principal); I65.23 Occlusion and stenosis of bilateral carotid arteries; R05.9 Cough, unspecified | CPT/HCPCS: 70450; 70496; 70498; 70551; 71045 ==

== ENCOUNTER → 2024-07-13 08:34 | Outpatient (BNV) | payer MEDICARE, MEDICAID, SELFPAY | PROVIDERS: Admitting Provider Physician Assistant; Emergency Provider Emergency Medicine; PCP Internal Medicine; Visit Provider Internal Medicine | DX: I63.9 Cerebral infarction, unspecified (principal) | CPT/HCPCS: 93010 ==

== ENCOUNTER → 2024-07-13 09:24 | Outpatient (BNV) | payer MEDICARE, MEDICAID, SELFPAY | PROVIDERS: Emergency Provider Emergency Medicine; PCP Internal Medicine; Visit Provider Psychiatry & Neurology Neurology | DX: R47.81 Slurred speech (principal) | CPT/HCPCS: 99222 ==

== ENCOUNTER 2024-07-13 10:14 | Outpatient (BNV) | payer MEDICARE, MEDICAID, SELFPAY | END 2024-07-14 05:50 | PROVIDERS: Admitting Provider Physician Assistant; Emergency Provider Emergency Medicine; PCP Internal Medicine; Visit Provider Radiology Diagnostic Radiology | DX: I63.9 Cerebral infarction, unspecified (principal); H57.02 Anisocoria | CPT/HCPCS: 70450 ==

== ENCOUNTER 2024-07-13 10:14 | Outpatient (BNV) | payer MEDICARE, MEDICAID, SELFPAY | END 2024-07-14 07:00 | PROVIDERS: Admitting Provider Physician Assistant; Emergency Provider Emergency Medicine; PCP Internal Medicine; Visit Provider Internal Medicine | DX: I42.2 Other hypertrophic cardiomyopathy (principal); I35.8 Other nonrheumatic aortic valve disorders; I34.81 Nonrheumatic mitral (valve) annulus calcification | CPT/HCPCS: 93306 ==

== ENCOUNTER → 2024-07-13 10:14 | Outpatient (BNV) | payer MEDICARE, MEDICAID, SELFPAY | PROVIDERS: Admitting Provider Physician Assistant; Emergency Provider Emergency Medicine; PCP Internal Medicine; Visit Provider Student in an Organized Health Care Education/Training Program | DX: I63.9 Cerebral infarction, unspecified (principal); L30.9 Dermatitis, unspecified; E11.65 Type 2 diabetes mellitus with hyperglycemia | CPT/HCPCS: 99223; 99233; 99239 ==

== ENCOUNTER 2024-08-25 12:46 | Outpatient (AMB) | payer MEDICARE, MEDICAID, SELFPAY ==
--- NOTE | 2024-08-25 12:47 | A.OFFVIS_ITS ---
Intake Visit Reasons: 2m/US/PSA(set) Intake Note: New Patient presents for initial visit for urinary retention Urology Medications: none Blood Thinner: Apixaban PVR: 0ml's Centerpuncher Required: No Accompanied by: Unknown Allergies No Known Allergies [No Known Allergies*] Allergy (Verified 08/25/24 13:07) Medication List - Last Reconciled 08/25/24 by MAT Hampton acetaminophen 650 mg PO Q4H PRN amlodipine 5 mg PO DAILY apixaban (Eliquis) 5 mg PO BID 30 days aspirin 81 mg PO .weekly atenolol 25 mg PO DAILY atorvastatin 80 mg PO DAILY [Bed pads and the pins As directed] bisacodyl 10 mg TX DAILY PRN blood pressure test kit-large As directed blood sugar diagnostic (FreeStyle Lite Strips) As directed 3 times a day blood-glucose sensor (FreeStyle Dedra 3 Sensor device) As directed blood-glucose,civil service clerk,cont (FreeStyle Dedra 3 [place]) As directed flash glucose sensor (FreeStyle Dedra 14 Day Sensor kit) As directed glucagon HCl (Glucagon (HCl) Emergency Kit) 1 mg subcut Q15M PRN hydralazine 10 mg PO TID insulin lispro 1 sliding scale dose subcut USEASDIRECTD lidocaine 4% (Lidocaine Pain Relief) 1 patch topical DAILY PRN magnesium hydroxide (Milk of Magnesia) 30 mL PO DAILY PRN magnesium oxide 800 mg (2 x 400 mg (241.3 mg magnesium)) PO BIDPC metformin 1,000 mg PO BID metoprolol succinate ER 25 mg PO TID omeprazole 20 mg PO BID@0630,1630 ondansetron HCl 4 mg PO Q6H sertraline 50 mg PO DAILY sodium phosphates 19-7 gram/118 mL (Fleet Enema) 118 mL TX BEDTIME PRN terazosin 5 mg PO BEDTIME 90 days [Toilet seat riser As directed] trazodone 50 mg PO BEDTIME PRN [Walker with seat As directed] HPI Comments Details: Silvestre is a pleasant 59-year-old male patient of Dr. Carlton who was accompanied by his mom at today's office visit. Has a past medical history of chronic kidney disease stage 3, obesity, hypertension, diabetes, paroxysmal AFib, and stroke. He presents to the office today for follow-up of his overflow incontinence as well as urinary retention. In discussion with the patient's mom who provides much of today's history. She discusses since the patient's last office visit here approximately 5 months ago he has suffered multiple TIAs as well as urinary retention at which time a Nascimento catheter was placed. It appears he is in rehab and a voiding trial has been performed and the patient has been able to independently void. In review of patient's MAR it does appear patient is compliant with 5 mg of terazosin as prescribed. Most recent renal imaging results were reviewed with the patient and his mom today 04/18 bilateral kidneys are normal in size and echotexture. No hydronephrosis or renal calculi noted bilaterally. The urinary bladder is unremarkable. The prostate measures 11 mL. Unable to obtain urine for urinalysis today as patient unable to void however PVR 0 mL. Patient reports he has been able to independently void at rehab without any issues. PSAs are as follows: 06/13 1.2, 04/18 2.6 We discussed potential causes of urinary retention in relation to patient's ongoing neurological issues. Will continue with surveillance monitoring at this time. All questions were answered. He otherwise offers no other issues or concerns at this time. [facility] Medical History Diabetic foot ulcer Stroke Chronic kidney disease (CKD), stage III (moderate) Overweight (BMI 25.0-29.9) Obesity (BMI 30-39.9) Benign essential hypertension Type II diabetes mellitus Paroxysmal atrial fibrillation Surgical History History of esophagogastroduodenoscopy (EGD) Family History Mother No problems noted. Father No problems noted. Social History Household Members: Family Household Members Other:: 2 Housing: House Do you presently have visiting nurse or other home services: Yes Unable to assess alcohol history related to: Refusing to respond Alcohol intake: former Patient Tobacco Use Status: Former Tobacco user Tobacco use type: Cigarette Cigarette Packs Per Day: 0.5 Cigarettes Per Day: 10.0 e-Cigarette/Vaping Use: Never Used Second Hand Smoke Exposure: Yes Advance Directives Date on File: 09/17/23 service: No Current occupational status: unemployed Cognitive needs: Yes (walker) Hearing needs: No Vision needs: Yes (Glasses) Review of Systems Const Reports as per HPI Eyes Reports no additional complaints ENT Reports no additional complaints Card Reports as per [facility] Resp Reports no additional complaints GI Reports no additional complaints Reports as per HPI Musc Reports as per [facility] Neuro Reports as per HPI Psych Reports no additional complaints Endo Reports as per HPI Paolo/Lymph Reports no additional complaints Aller/Immun Reports no additional complaints Physical Exam Const General: cooperative, comfortable, no acute distress, well developed, alert and awake Nutritional Appearance: overweight Orientation/consciousness: oriented to person Limitations: wheelchair HEENT Head: Yes normal to inspection, Yes normocephalic and Yes atraumatic Ears: hearing grossly normal bilaterally Eyes General: appearance normal, both eyes and all related structures Neck Neck: Yes normal visual inspection and Yes trachea midline Chest Chest palpation & inspection: normal inspection of the chest Resp Effort & Inspection: normal respiratory effort and able to speak in complete sentences Cardio Rate: regular rate GI Inspection: Yes normal to inspection General: Yes no CVA tenderness Back/Spine/Pelvis Back: no CVA tenderness Skin General skin exam: no rashes or lesions noted Neuro General: oriented to person Extrem General: Yes normal to inspection Psych Appearance: grossly normal and well kempt Speech and movement: Slowed movement present (Neuro) Affect: normal affect Attitude: cooperative Thought content: Normal thought content present Insight: Fair insight present (Psych) and Limited insight present (Psych) Judgement: Fair judgement present (Psych) and Limited judgement present (Psych) Office Procedures Post Void Residual Post Residual Void Post Void Residual (PVR): 0 [id number] Void Residual by ultrasound Results Reviewed Results Reviewed: Date of Service: 04/16/24 Procedure(s): US retroperitoneal comp US Renal Comparison: None Findings: Right kidney normal size and echotexture, 13.3 cm length. Left kidney normal size and echotexture, 12.2 cm length. No hydronephrosis of either kidney. Normal color Doppler. Urinary bladder is unremarkable. Prevoid volume 568 mL. Bilateral ureteral jets are visualized. The prostate measures 4.3 x 2.5 x 1.9 cm. IMPRESSION: 1. Normal kidneys. Assessment & Plan Assessment & Plan (1) Urinary retention: Code(s): R33.9 - Retention of urine, unspecified Category: Medical (2) Incomplete bladder emptying: Code(s): R33.9 - Retention of urine, unspecified Category: Medical Plan Unable to obtain urine for urinalysis today however PVR 0 mL. Most recent retroperitoneal ultrasound results reviewed with the patient and his mother today; as noted above. Most recent PSA results reviewed with the patient in his mom today; as noted above. Will continue with surveillance monitoring. Continue terazosin as discussed and prescribed. We discussed the importance of timed/scheduled voiding given patient has decreased mobility. Follow-up in 3 months with PVR; or sooner with any issues, concerns, and or questions. Orders: Orders AMB Post Void Residual by ultrasound Today R32 - Unspecified urinary incontinence Patient Instructions: The patient had an opportunity to ask questions regarding the treatment plan. All questions were answered. Physical exam, labs, and imaging were discussed and reviewed in detail. As well as risks, benefits, and discussion of treatment choices. No major barriers to understanding were identified. The patient expressed understanding and agreement with the above treatment plan. The patient was made aware they should contact our office by phone for worsening of their current condition, the appearance of new symptoms, or with any questions or concerns. Compliance is encouraged with any medications and follow up testing that is ordered. It is a privilege to be allowed the opportunity to participate in? your urological care.? Again, if you have any questions or concerns If you have any questions or concerns please do not hesitate to contact me. The office is [phone]. This note is constructed using voice recognition software. While every effort has been made to ensure accuracy director of cardiopulmonary services errors may have been included. Yours sincerely, MAT Hampton Coding Level of Care Code Est Pt Level 3 (57168) Complex EM visit Add On G2211 Diagnoses Urinary retention R33.9 Incomplete bladder emptying R33.9 CPT Codes Post Residual Void - PVR CPT Code: 35983-Iezo Void Residual by ultrasound ([id number])
--- OUTSIDE RECORDS SUMMARY | 2024-08-25 14:05 | XMS_ITS ---
Author Organization [facility] Address [address] [place] [id number] Care Team Providers Care Locomotive Driver Name Role Phone Brandt MACHADO, Félix Primary Care Provider Stephon Montano Jr REASON FOR VISIT erosive esophagitis,screening Encounters Encounter Location Date Provider Diagnosis [facility] [address] [place] [id number] 05/15/2024 Stephon Cristina Jr Plan Of Treatment No Information Progress Notes * NOELLE OSEI DDOB: [birth year] (59 yo M)Acc No.[id number]:05/15/2024 EGD and COL/MAC Patient:?NOELLE OSEI Provider:?Stephon Cristina MD :1965???Age:59 Y???Sex:Male Keon e:05/15/2024 Address:[address] [place], [place] [id number] Pcp:Félix Carlton MD Subjective: * Chief Complaints: * ???1. Erosive esophagitis,sc reening. * Medical History:? Objective: * Vitals:? Assessment: Plan: * Treatment: * * The named appointment provid er may or may not be the originator of this progress note, and it is not deemed complete until electronically signed by the appointment provider. Sign off status: Pending * Provider:?Stephon Cristina MD Date:?0 05/15/2024 Generated for Jena jones/Heidi/Taylor on:?08/25/2024 02:05 PM EDT
== END 2024-08-25 13:59 | disposition home or self-care (01) ==
LOC: HO.HUSH 12:46
PROVIDERS: PCP Internal Medicine; Visit Provider Nurse Practitioner Family
DX: R33.9 Retention of urine, unspecified (principal)
CPT/HCPCS: 99213; G2211

== ENCOUNTER → 2024-08-25 12:46 | Outpatient (BNVA) | payer MEDICARE, MEDICAID, SELFPAY | PROVIDERS: PCP Internal Medicine; Visit Provider Nurse Practitioner Family | DX: R33.9 Retention of urine, unspecified (principal) | CPT/HCPCS: 51798; 99212 ==